=== PATIENT | female | born 1990 | race Two or more races ===

== ENCOUNTER 2022-04-23 14:56 | Emergency (ER) | payer MEDICAID, SELFPAY ==
[2022-04-23 15:00] VITALS: BP 131/92; PULSE 107; RESP 18; TEMP 36.1; O2SAT 100; BMI 31.0
--- NOTE | 2022-04-23 15:09 | EX.ED.VIS.HA ---
HPI History of Present Illness Chief Complaint: Headache Detail of Chief Complaint: Migraine headache Informant: patient Onset/Context/Timing Onset: Days (6 days ago) Context: Gradual Timing: Continuous Quality -Headache: Positive for Similar Prior Headaches Location: Initially unilateral, left now bilateral Current Severity: Severe Maximum Severity: Severe Worsened by: Light and sound Relieved by: Nothing Associated Symptoms/Injury Associated Symptoms: Positive for Nausea; Negative for Fever, Vomiting, Sore Throat, Sinus Pressure, Numbness, Tingling, Preceding Aura, Visual Changes, Blurred Vision, Photophobia or Visual Loss Injury - SERRATO: Negative for Direct Trauma Narrative Narrative: Patient is a 31-year-old female with history of migraine headaches. Per review of outside records indicates patient has history of cluster headaches. She states she does not have history of cluster headaches. She states the last time she came to an emergency room was during her last in 2020. She is . Gestation is approximately 30 weeks. She states she took acetaminophen with no improvement. She states normally acetaminophen alleviates her headache. She denies fever, chills night sweats pressure has ringing or ears, decreased hearing or drainage from her ears. She denies rhinorrhea, congestion or postnasal drainage. She denies sore throat. She denies neck pain or neck stiffness. She denies cardiac or respiratory symptoms. She does endorse nausea without vomiting diarrhea. She denies urologic symptoms. She denies paresthesia, anesthesia or motor weakness upper or lower extremity. She denies problems with coordination or balance. She denies trouble with speech or swallowing. She has had no ill contacts. Prior similar symptoms: Yes Recent Illness/Hospitalization: No PFSH PFSH Medical History (Updated 04/23/22 @ 17:[address] Homero Barbosa MD) Anemia PTSD (post-traumatic stress disorder) Allergy/AdvReac Type Severity Reaction Status Date / Time azithromycin Allergy Hives Verified 04/23/22 15:00 nitrofurantoin Allergy Hives Verified 04/23/22 15:00 tetracycline Allergy Hives Verified 04/23/22 15:00 Social History (Updated 04/23/22 @ 15:[address] Homero Barbosa MD) household members: children Smoking Status: Never smoker substance use type: does not use ROS ROS ED Constitutional Constitutional ED: Denies chills, fever(s), subjective, sweats or weight loss Eyes Eyes: Denies blurry vision, change in vision or diplopia ENT ENT ED: Denies ear pain, rhinorrhea or sore throat Cardiovascular Cardiovascular: Denies chest pain or palpitations Respiratory/Chest Respiratory/Chest: Denies cough, dyspnea or dyspnea on exertion Gastrointestinal Gastrointestinal: Reports nausea; Denies abdominal pain, constipation, diarrhea, melena or vomiting Genitourinary Genitourinary ED: Denies dysuria, hematuria or urinary frequency Musculoskeletal Musculoskeletal: Denies arthralgias, back pain, myalgias or neck pain Integumentary Denies abscess, Abrasions or rash Neurologic Neurologic: Reports headache(s) and other Details: Complete detailed HPI narrative. ; Denies paresthesias or weakness Psychiatric Psychiatric: Denies anxiety or depression Hematologic/Lymphatic Hematologic/Lymphatic: Denies easy bleeding or easy bruising EXAM Physical Exam Const Vital Signs: 04/23/22 15:00 04/23/22 16:56 Temperature 97 F L Temperature Source Temporal Pulse Rate 107 H 96 Respiratory Rate 18 16 Blood Pressure 131/92 H 124/74 H Blood Pressure Mean 105 90 Pulse Ox 100 99 Oxygen Delivery Method Room Air Room Air Positive well nourished, well developed and obese Constitutional Narrative: Patient does not appear in obvious distress. She is quiet. She is sitting in a room with the lights out. General Appearance ED: well developed; Negative for cyanotic, diaphoretic or pallor Nutritional Appearance: obese HEENT Reports normocephalic, TM's clear and moist mucous membranes atraumatic; Negative for temporal artery tenderness or vesicular rash Face and Sinus: Negative for sinus tenderness Tympanic Membrane ED: Yes TM's clear Eyes PERRL and EOMs intact bilaterally Eyes Narrative: There is no APD. Funduscopic exam reveals normal cup-to-disc ratio. There is no papilledema. There is no evidence of hemorrhaging or abnormalities of the vessels. There is no nystagmus. The conjunctive is pink. General Eye ED: Negative for pale conjunctiva or scleral icterus Neck no lymphadenopathy, supple, no meningeal signs and no JVD Resp normal respiratory effort and clear to auscultation bilaterally Cardio regular rhythm, S1 normal heart sound, S2 normal heart sound and no murmurs; Negative for regular rate Rate: tachycardic GI non-tender and non-distended GI Narrative: Fundus is several fingerbreadths above the umbilicus. Auscultation: normoactive bowel sounds Palpation: soft Back/Spine no CVA tenderness Extremity normal to inspection, full ROM and normal capillary refill Neuro oriented x3, CN's II-XII intact bilaterally and no sensory deficits noted Holden Coma Scale: document GCS findings Spontaneous Obeys Commands Oriented 15 Sensorium / Orientation: awake and alert Coordination / Balance: [id number] test normal Speech: speech normal Gait (Neuro): normal gait Motor Exam: strength 5/5 throughout Psych Psych Narrative: Affect is flat. Skin General Skin Exam: elasticity normal and turgor normal; Negative for jaundice or pallor Lesions: no lesions Rashes: no rashes MDM MDM MDM Narrative Medical decision making narrative: Patient presents with headache for 6 days. Since she reports history of migraine headache she was treated with IV Benadryl and Reglan. She was not given Toradol since she is in her third trimester. If new medication ordered does not significantly improve her headache or alleviate her headache we will treat with droperidol. Review of outside records as previously documented indicates history of cluster headache syndrome not migraine headaches. She also has history of MTHFR mutation and anemia. There is also a history of hemorrhoids. Prior imaging results are not available for review. From outside records there is no family history of subarachnoid hemorrhage. Since patient has a nonfocal neurologic exam and headache was not abrupt and there are no meningeal findings CT of the head was not obtained. I was informed by nursing staff the patient's pain is a 1. In light of this she will be discharged to home. Discharge Plan Triage Chief Complaint: Headache ED Provider: Homero Barbosa Dx/Rx/DC Orders Clinical Impression: Intractable migraine without aura and with status migrainosus, MTHFR mutation, Anemia Instructions: ED, Migraine (Classical) Primary Care Provider: [facility] Doctor,Out of Referrals: [facility] Doctor,Out of [Primary Care Provider] - As Needed Disposition Disposition: Home, Self Care
[2022-04-23] MEDS: DiphenhydrAMINE 50 MG/ML Syringe 25 MG IV (15:14)
[2022-04-23] MEDS: Metoclopramide 10 MG/2 ML Vial IV (15:16)
[2022-04-23 16:56] VITALS: BP 124/74; PULSE 96; RESP 16; O2SAT 99
[2022-04-23 17:31] VITALS: RESP 16
== END 2022-04-23 17:33 | disposition home or self-care (01) ==
PROVIDERS: Emergency Provider Emergency Medicine; Visit Provider Emergency Medicine
DX: O99.353 Diseases of the nervous system complicating pregnancy, third trimester (principal); G43.011 Migraine without aura, intractable, with status migrainosus; O99.891 Other specified diseases and conditions complicating pregnancy; Z3A.30 30 weeks gestation of pregnancy; O99.013 Anemia complicating pregnancy, third trimester; O99.213 Obesity complicating pregnancy, third trimester
CPT/HCPCS: 96374; 96375; 99282; A4216

== ENCOUNTER 2022-10-07 21:24 | Emergency (ER) | payer MEDICAID, SELFPAY ==
[2022-10-07 21:29] VITALS: BP 114/88; PULSE 77; RESP 18; TEMP 36.5; O2SAT 98
[2022-10-07 21:56] VITALS: BMI 24.5
--- NOTE | 2022-10-07 21:56 | EX.ED.DYSGE1 ---
HPI History of Present Illness Chief Complaint: Other, Pain/Inj Detail of Chief Complaint: Hemorrhoid pain Informant: patient Onset/Context/Timing Onset: Month(s) Context: Gradual Onset Timing: Continuous Current Severity: Moderate Maximum Severity: Moderate Narrative Narrative: [id number] female history of hemorrhoids for more than a year. She was set up to have surgery go and get with her second child and never followed through. She complaining of hemorrhoid pain for the last several weeks worse the last several days. No bleeding. Prior similar symptoms: Yes Recent Illness/Hospitalization: No PFSH PFSH Medical History Acute hemorrhoid Anemia PTSD (post-traumatic stress disorder) Home Medications hydrocodone 5 mg-acetaminophen 300 mg tablet 1 tab PO Q6H PRN pain 3 days #12 tabs 10/07/22 [Rx Last Taken Unknown] Allergy/AdvReac Type Severity Reaction Status Date / Time soy Allergy Severe Anaphylaxis Verified 10/07/22 21:28 silver sulfadiazine Allergy Mild Hives Verified 10/07/22 21:28 [From Silvadene] Sulfa (Sulfonamide Allergy Mild Hives Verified 10/07/22 21:28 Antibiotics) azithromycin Allergy Hives Verified 10/07/22 21:28 nitrofurantoin Allergy Hives Verified 10/07/22 21:28 tetracycline Allergy Hives Verified 10/07/22 21:28 Social History household members: children Smoking Status: Never smoker substance use type: does not use ROS ROS ED ROS Narrative Denies recent illness. Review of Systems ROS Unobtainable: Denies due to encephalopathy Constitutional Constitutional ED: Denies chills or fever(s) Eyes Eyes: Denies blurry vision ENT ENT ED: Denies ear pain Cardiovascular Cardiovascular: Denies chest pain Respiratory/Chest Respiratory/Chest: Denies cough or dyspnea Gastrointestinal Gastrointestinal: Denies abdominal pain Genitourinary Genitourinary ED: Denies dysuria Musculoskeletal Musculoskeletal: Denies arthralgias Integumentary Denies abscess Neurologic Neurologic: Denies headache(s) Psychiatric Psychiatric: Denies anxiety Endocrine Endocrinology: Denies cold intolerance Hematologic/Lymphatic Hematologic/Lymphatic: Reports none Allergic/Immunologic Allergic/Immunologic ED: Denies mouth swelling or tongue swelling EXAM Physical Exam Narrative Exam Narrative: 32-year-old female no acute distress. Vital signs stable afebrile. HEENT exam unremarkable. Lungs clear. Heart regular rhythm. No murmur. Abdomen soft nontender. Well-healed incision. Dry and clean. Moving all 4 extremities. With her present in the room I did a perianal exam she has 1 grape sized thrombosed hemorrhoid. Tender. No active bleeding. Otherwise exam unremarkable. Const Vital Signs: 10/07/22 21:29 Temperature 97.7 F L Temperature Source Temporal Pulse Rate 77 Respiratory Rate 18 Blood Pressure 114/88 H Blood Pressure Mean 96 Pulse Ox 98 Oxygen Delivery Method Room Air Positive well nourished and well developed; Negative for obese, cachectic, contractures or unkempt General Appearance ED: well developed and NAD; Negative for unkempt, cachectic, contractures, cyanotic, diaphoretic or pallor Nutritional Appearance: Negative for cachectic or obese HEENT Reports moist mucous membranes; Denies dry mucous membranes Negative for trauma or tenderness Mouth ED: No dry mucous membranes Mouth: No dry mucous membranes Eyes PERRL and EOMs intact bilaterally General Eye ED: Negative for pale conjunctiva or scleral icterus Neck no lymphadenopathy, supple and no JVD General: Negative for tenderness Lymph Lymphatic: Negative for other Chest Wall inspection of chest normal and palpation of chest normal Chest: Negative for other Resp normal respiratory effort and clear to auscultation bilaterally Effort and Inspection: Negative for retractions Auscultation: Negative for rales, rhonchi or wheezes Cardio regular rate, regular rhythm, S1 normal heart sound, S2 normal heart sound and no murmurs GI normal to inspection, nondistended, normoactive bowel sounds, non-tender, non-distended and no masses GI Narrative: Annual exam has 1 grape sized thrombosed hemorrhoid at the 6:00 area. Tender to palpation. No bleeding. Palpation: soft Back/Spine no CVA tenderness Neuro oriented x3 and CN's II-XII intact bilaterally Sensorium / Orientation: alert Motor Exam: strength 5/5 throughout Psych mental status grossly normal Appearance: Negative for unkempt Attitude: No agitated Mood & Affect: Negative for depressed, anxious or tearful Skin no rashes or lesions noted, no wounds and skin turgor normal General Skin Exam: elasticity normal; Negative for jaundice or pallor Lesions: No lesion noted Rashes: No rashes noted Trauma: Negative for abrasion Wounds: Negative for wounds noted MDM MDM MDM Narrative Medical decision making narrative: 32-year-old female with a thrombosed hemorrhoid. She is already tried Preparation H, sitz baths, witch vaishnavi, etc. No relief. She and I discussed other options. She is going made incise and drain it and remove the clot. Then she will follow-up with general surgery to have it formally resected. Patient doing well after incision and drainage of the external hemorrhoid. She will be discharged home. Prescription for Vicodin will be sent in. Follow-up with a general surgeon for hemorrhoidectomy. Procedures Other Procedures Procedure(s): External hemorrhoid incision and drainage. Let applied to the hemorrhoid. Locally anesthetized with lidocaine. Made a incision along the hemorrhoid. Removed blood. It was primarily inflammation of the soft tissue. There really was not a large clot. Patient tolerated procedure well. She was instructed on hemorrhoid care. Discharge Plan Triage Chief Complaint: Other, Pain/Inj ED Provider: Dexter Ghosh Dx/Rx/DC Orders Clinical Impression: External hemorrhoid, thrombosed Instructions: Thrombosed Hemorrhoids Prescriptions: New hydrocodone-acetaminophen 5-300 mg tablet 1 tab PO Q6H PRN (Reason: pain) 3 Days Qty: 12 0RF Primary Care Provider: LOVE EATON Referrals: Hermelindo Presley MD [Med Staff - Active Staff] - As soon as possible [facility] Doctor,Out of [Non-Staff] - Activity Restrictions/Additional Instructions: Incise and drain the external hemorrhoid. Warm soaks. Hemorrhoid cream. Call and follow-up with either our general surgeon or the one you saw at [facility] before to discuss with them a external hemorrhoid resection. Motrin and Tylenol for pain. For more severe pain the prescription I sent in for Vicodin. Disposition Disposition: Home, Self Care
[2022-10-07] MEDS: Lidocaine 1% (20 ml mdv) 20 ML Vial 10 ML INFILT (22:03)
[2022-10-07] MEDS: Lidocaine/Epi/Tetracaine 50 ML 1 APPLIC TOPICAL (22:04)
--- NOTE | 2022-10-07 23:31 | EDS_ITS ---
HPI History of Present Illness Chief Complaint: Other, Pain/Inj PFSH PFSH Medical History Acute hemorrhoid Anemia PTSD (post-traumatic stress disorder) Home Medications hydrocodone 5 mg-acetaminophen 300 mg tablet 1 tab PO Q6H PRN pain 3 days #12 tabs 10/07/22 [Rx Last Taken Unknown] Allergy/AdvReac Type Severity Reaction Status Date / Time soy Allergy Severe Anaphylaxis Verified 10/07/22 21:28 silver sulfadiazine Allergy Mild Hives Verified 10/07/22 21:28 [From Silvadene] Sulfa (Sulfonamide Allergy Mild Hives Verified 10/07/22 21:28 Antibiotics) azithromycin Allergy Hives Verified 10/07/22 21:28 nitrofurantoin Allergy Hives Verified 10/07/22 21:28 tetracycline Allergy Hives Verified 10/07/22 21:28 Social History household members: children Smoking Status: Never smoker substance use type: does not use EXAM Physical Exam Const Vital Signs: 10/07/22 21:29 Temperature 97.7 F L Temperature Source Temporal Pulse Rate 77 Respiratory Rate 18 Blood Pressure 114/88 H Blood Pressure Mean 96 Pulse Ox 98 Oxygen Delivery Method Room Air Discharge Plan Triage Chief Complaint: Other, Pain/Inj ED Provider: Dexter Ghosh Dx/Rx/DC Orders Clinical Impression: External hemorrhoid, thrombosed Instructions: Thrombosed Hemorrhoids Prescriptions: New hydrocodone-acetaminophen 5-300 mg tablet 1 tab PO Q6H PRN (Reason: pain) 3 Days Qty: 12 0RF Primary Care Provider: LOVE EATON Referrals: Hermelindo Presley MD [Med Staff - Active Staff] - As soon as possible [facility] Doctor,Out of [Non-Staff] - Activity Restrictions/Additional Instructions: Incise and drain the external hemorrhoid. Warm soaks. Hemorrhoid cream. Call and follow-up with either our general surgeon or the one you saw at [facility] before to discuss with them a external hemorrhoid resection. Motrin and Tylenol for pain. For more severe pain the prescription I sent in for Vicodin. Disposition Disposition: Home, Self Care
[2022-10-07 23:35] VITALS: BP 112/80; PULSE 78; RESP 16; O2SAT 98
== END 2022-10-07 23:42 | disposition home or self-care (01) ==
PROVIDERS: Emergency Provider Emergency Medicine; Visit Provider Emergency Medicine
DX: K64.5 Perianal venous thrombosis (principal)
CPT/HCPCS: 46083; 99282

== ENCOUNTER → 2022-10-26 | Outpatient (CLI) | payer MEDICAID, SELFPAY | END | disposition home or self-care (01) | LOC: LABSPEC 16:17 | PROVIDERS: Referring Provider Registered Nurse; Visit Provider Registered Nurse | DX: N89.8 Other specified noninflammatory disorders of vagina (principal) | CPT/HCPCS: 87070; 87205 ==

== ENCOUNTER → 2023-01-04 | Outpatient (CLI) | payer MEDICAID, SELFPAY | END | disposition home or self-care (01) | PROVIDERS: Visit Provider Surgery | DX: Z00.00 Encounter for general adult medical examination without abnormal findings (principal) ==

== ENCOUNTER → 2023-02-26 | Outpatient (CLI) | payer MEDICAID, SELFPAY ==
[2023-02-26 12:04] LABS: Hematocrit 43.2 % (37-47); Hemoglobin 13.5 g/dL (12.0-15.0); Mean Corp Hgb Conc 31.3 g/dL (32-36); Mean Corpuscular Volume 83.1 fL (81-99); RBC Distribution Width CV 13.2 % (11.6-14.6); RBC Distribution Width SD 39.9 fl (35.1-43.9); White Blood Count 9.2 K/mm3 (4.4-11.0)
[2023-02-26 12:05] LABS: Absolute Lymphocyte Count 2.95 X10^3/uL (0.83-4.51); Absolute Neutrophil Count 5.7 X10^3/uL (2.0-7.7); Basophil# 0.02 X10^3/uL; Basophil% 0.2 % (0-1); Eosinophil# 0.08 X10^3/uL; Eosinophils% 0.9 % (0-5); Lymphocyte # 2.95 X10^3/ul (0.83-4.51); Lymphocyte % 32.2 % (19-41); Mean Platelet Vol. 9.8 fl (6.2-12.0); Monocyte# 0.35 X10^3/uL; Monocyte% 3.8 % (0-10); NRBC Flagged by Analyzer 0 % (0-5); Neutrophil # 5.65 X10^3/uL (2.7-7.7); Neutrophil % 61.7 % (47-70); Platelet Count 340 K/mm3 (150-450)
[2023-02-26 12:25] LABS: AST(SGOT) 8 U/L (15-37); Alanine Aminotransfer ALT/SGPT 16 U/L (13-56); Albumin, Serum 4.3 g/dL (3.2-5.0); Alkaline Phosphatase 83 U/L (45-117); Anion Gap 7 (5-15); BUN 12 mg/dL (7-18); BUN/Creat Ratio 15.8 RATIO (10-20); Chloride 109 mmol/L (98-107); Creatinine, Serum 0.76 mg/dL (0.55-1.02); EST Glomerular Filtration Rate 95 mL/min (>60); Est Glom Filt Rate - Afr Amer 114 mL/min (>60); Globulin 4.1 g/dL (2.2-4.2); Glucose 87 mg/dL (74-106); Potassium 4.1 mmol/L (3.5-5.1); Prolactin 15.9 ng/mL; Protein, Total 8.4 g/dL (6.4-8.2); Sodium Level 139 mmol/L (136-145); T4 Free Direct 1.03 ng/dL (0.76-1.46); Thyroid Stim Hormone (TSH) 1.33 uIU/mL (0.358-3.74)
[2023-02-26 12:31] LABS: Vitamin D,25 Hydroxy 25.8 ng/mL
[2023-02-27 15:08] LABS: Thyroid Peroxidase AB 13 IU/mL (0-34)
== END | disposition home or self-care (01) ==
LOC: PAVLAB 11:48
PROVIDERS: Referring Provider Nurse Practitioner Women's Health; Visit Provider Nurse Practitioner Women's Health
DX: L85.3 Xerosis cutis (principal); R53.83 Other fatigue; Z13.29 Encounter for screening for other suspected endocrine disorder; Z13.21 Encounter for screening for nutritional disorder
CPT/HCPCS: 36415; 80053; 82306; 82670; 84146; 84439; 84443; 85025; 86376

== ENCOUNTER → 2023-08-03 | Outpatient (CLI) | payer MEDICAID, SELFPAY ==
[2023-08-03 11:24] LABS: Hemoglobin A1c 4.9 % (3.8-5.6)
[2023-08-10 12:09] LABS: Testosterone Free 0.4 pg/mL (0.0-4.2)
== END | disposition home or self-care (01) ==
LOC: LAB 09:56
PROVIDERS: PCP Family Medicine; Referring Provider Nurse Practitioner Women's Health; Visit Provider Nurse Practitioner Women's Health
DX: L70.9 Acne, unspecified (principal)
CPT/HCPCS: 36415; 82627; 83036; 84402; 82626

== ENCOUNTER 2023-08-21 11:48 | Day surgery (SDC) | payer MEDICAID, SELFPAY ==
[2023-08-21 12:08] LABS: Internal QC Validated? YES +Cl - CLEAR BKGD; Pregnancy, Urine Negative Negative; Record Kit Lot#,Urine Preg HCG0000735774
[2023-08-21 12:17] VITALS: BP 132/84; PULSE 95; RESP 16; TEMP 36.7; O2SAT 100; BMI 26.4
[2023-08-21] MEDS: Lactated Ringers 1,000 ML 15 ML IV (12:17)
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
[2023-08-21 13:30] VITALS: BP 124/78; BP 132/84; PULSE 84; RESP 16; TEMP 36.8; O2SAT 99
[2023-08-21 13:35] VITALS: BP 116/74; BP 132/84; PULSE 80; RESP 18; O2SAT 100
--- NOTE | 2023-08-21 13:35 | OP.COLON_ITS ---
Patient Name: Holden Pastor Procedure Date: 08/21/2023 12:14 PM Date of : 1990 Age: 33 Procedure: Colonoscopy Indications: Family history of colon cancer in a first-degree relative before age 60 years, For therapy of hemorrhoids, Constipation Providers: Hermelindo Presley MD Medicines: See the Anesthesia note for documentation of the administered medications Patient Profile: Last Colonoscopy: more than 10 years ago. Last Colonoscopy: more than 10 years ago. Complications: No immediate complications. Estimated blood loss: None. Procedure: Pre-Anesthesia Assessment: - The heart rate, respiratory rate, oxygen saturations, blood pressure, adequacy of pulmonary ventilation, and response to care were monitored throughout the procedure. After I obtained informed consent, the scope was passed under direct vision. Throughout the procedure, the patient's blood pressure, pulse, and oxygen saturations were monitored continuously. The pediatric colonoscope was introduced through the anus and advanced to the cecum, identified by transillumination. The gastroscope was introduced through the and advanced to. The colonoscopy was somewhat difficult due to a tortuous colon. Successful completion of the procedure was aided by changing the patient to a supine position and straightening and shortening the scope to obtain bowel loop reduction. The patient tolerated the procedure well. The quality of the bowel preparation was adequate to identify polyps greater than 5 mm in size. Scope In: 12:40:01 PM Scope Withdrawal Time 0 hours 18 minutes 33 seconds Scope Out: 1:12:29 PM Total Procedure Duration Time 0 hours 32 minutes 28 seconds Findings: Skin tags were found on perianal exam. The colon (entire examined portion) appeared normal. No biopsies or other specimens were collected for this exam. Internal hemorrhoids were found during retroflexion. The hemorrhoids were Grade II (internal hemorrhoids that prolapse but reduce spontaneously). The endoscope was withdrawn. One band was successfully placed. There was no bleeding during and at the end of the procedure. Estimated blood loss: none. Impression: - Perianal skin tags found on perianal exam. - The entire examined colon is normal. No specimens collected. - Internal hemorrhoids. Banded. Recommendation: - Discharge patient to home (via wheelchair). - Resume previous diet today. - Continue present medications. - Repeat colonoscopy in 7-10 years for screening purposes. - Telephone my office for study results in 1 week. Procedure Code(s): --- Professional --- 86096, Hemorrhoidectomy, internal, by rubber band ligation(s) 10155, Colonoscopy, flexible; diagnostic, including collection of specimen(s) by brushing or washing, when performed (separate procedure) Diagnosis Code(s): --- Professional --- K64.4, Residual hemorrhoidal skin tags K64.1, Second degree hemorrhoids Z80.0, Family history of malignant neoplasm of digestive organs K59.00, Constipation, unspecified CPT copyright 2021 [employer]. All rights reserved. The codes documented in this report are preliminary and upon foreign legal consultant review may be revised to meet current compliance requirements. Hermelindo Presley MD 08/21/2023 1:35:20 PM This report has been signed electronically. Number of Addenda: 0 Note Initiated On: 08/21/2023 12:14 PM
[2023-08-21 13:40] VITALS: BP 113/92; BP 132/84; PULSE 78; RESP 18; O2SAT 100
[2023-08-21] MEDS: Ketorolac 30 MG/ML Syringe IV (13:41)
[2023-08-21 13:48] VITALS: BP 112/88; BP 132/84; PULSE 83; RESP 18; TEMP 36.7; O2SAT 100
[2023-08-21] MEDS: diazePAM 5 MG Tablet PO (14:30)
--- NOTE | 2023-08-21 14:35 | SUR.PHASEII ---
Spoke to pharmacist about taking Valium while . Pharmacist advises that medication can be excreted in breastmilk, baby may be more lethargic for up to 1 day and not feed as well. Patient updated and states that as long as it won't make baby ill that she would like to take medication.
[2023-08-21 15:12] VITALS: BP 132/84
== END 2023-08-21 15:14 | disposition home or self-care (01) ==
LOC: EN 11:49 → AC 11:51
PROVIDERS: Anesthesiology; PCP Family Medicine; Referring Provider Surgery; Visit Provider Surgery
PROC: 0DJD8ZZ Inspection of Lower Intestinal Tract, Via Natural or Artificial Opening Endoscopic (ICD-10-PCS; CPT 45378; principal; 2023-08-21 12:40)
DX: K64.1 Second degree hemorrhoids (principal); Z80.0 Family history of malignant neoplasm of digestive organs; K64.4 Residual hemorrhoidal skin tags
CPT/HCPCS: 46221; 81025; J7120; J2405

== ENCOUNTER → 2023-09-24 | Outpatient (CLI) | payer MEDICAID, SELFPAY ==
--- NOTE | 2023-09-24 16:38 | US_ITS ---
STUDY: ULTRASOUND OF THE FEMALE PELVIS - COMPLETE REASON FOR EXAM: Female, 33 years old. Pelvic pain LMP: August 26, 2023. TECHNIQUE: Transabdominal and Transvaginal TECHNICAL QUALITY: Adequate. COMPARISON: None. FINDINGS: The uterus is anteverted and is in a midline position. The uterus measures 8.2 cm x 5.9 cm x 5.1 cm. Normal uterine cervix. The endometrium measures 7.4 mm in thickness, and is hyperechoic. There is no demonstrated endometrial mass. There is no demonstrated myometrial mass. I.U.D. - The patient does not have an I.U.D. The right ovary is visualized. The right ovary measures 3 cm x 2 cm x 1.4 cm. There is no right ovarian cyst or ovarian mass. There is no visualized right adnexal mass or complex lesion. There is normal arterial and normal venous vascularity. The left ovary is visualized. The left ovary measures 2.4 cm x 1.6 cm x 1.6 cm. There is no left ovarian cyst or ovarian mass. There is no visualized left adnexal mass or complex lesion. There is normal arterial and normal venous vascularity. There is minimal fluid in the cul-de-sac. The pre void volume of the bladder was 191 ml. US/Pelvic w/ Transvaginal IMPRESSION: Normal female pelvis. Electronically Signed: Nick Mcelroy MD at 12:59 EDT ,
== END | disposition home or self-care (01) ==
PROVIDERS: PCP Internal Medicine; Referring Provider Internal Medicine; Visit Provider Internal Medicine
DX: R10.2 Pelvic and perineal pain (principal)
CPT/HCPCS: 76830; 76856

== ENCOUNTER → 2023-10-09 | Outpatient (CLI) | payer MEDICAID, SELFPAY ==
--- NOTE | 2023-10-09 14:22 | CT_ITS ---
STUDY: CT ABDOMEN AND PELVIS WITH CONTRAST REASON FOR EXAM: Female, 33 years old. Left lower quadrant pain for 2 months. RADIATION DOSAGE (If Supplied By Facility): CTDIvol = ( 11.85 ) mGy, DLP = ( 838.76 ) mGycm TECHNIQUE: Transaxial images were obtained from the dome of the diaphragm to the symphysis pubis without oral contrast. IV 100mL Isovue-370 was administered. Sagittal and coronal images were reconstructed. Individualized dose optimization techniques were used for this CT. COMPARISON: None. FINDINGS: The visualized lung bases are unremarkable. The visualized portions of the heart are within normal limits. There is decreased attenuation of the liver consistent with steatosis. Normal gallbladder and extrahepatic biliary system. Normal spleen. Normal pancreas. Normal bilateral adrenal glands. Normal right kidney. Normal left kidney. There is a small hiatal hernia. Normal small intestine. Abnormal appearance of the cecum and proximal ascending colon. Fecal material is seen at that site although I cannot rule out circumferential wall thickening. Correlation with a barium enema or colonoscopy is recommended for further evaluation. Small benign-appearing lymph nodes are seen in the mesenteric fat. There is non-visualization of the appendix. Normal abdominal aorta. Normal inferior vena cava. Normal retroperitoneum. Normal urinary bladder. Normal abdominal wall. Normal osseous structures. CT/Abdomen/Pelvis WITH Contrast IMPRESSION: Abnormal appearance of the cecum and proximal ascending colon as described with circumferential wall thickening. Correlation with a barium enema or colonoscopy is recommended for further evaluation. Small lymph nodes are seen in the mesenteric fat in the right lower quadrant. Electronically Signed: Nick Mcelroy MD at 16:01 EDT ,
== END | disposition home or self-care (01) ==
PROVIDERS: PCP Internal Medicine; Referring Provider Internal Medicine; Visit Provider Internal Medicine
DX: R10.2 Pelvic and perineal pain (principal)
CPT/HCPCS: 74177; Q9967

== ENCOUNTER 2024-01-15 11:43 | Day surgery (SDC) | payer MEDICAID, SELFPAY ==
[2024-01-15] VITALS (9 sets, daily range): BP systolic 112–129; BP diastolic 70–88; PULSE 73–103; RESP 16–18; TEMP 36.3–37.2; O2SAT 96–100; BMI 27.1
--- NOTE | 2024-01-15 | IMM_PTH ---
PATHOLOGY RESULTS PATIENT: RG KELLEY LOC: EN U#:[id number] AGE/SX: 33/F ROOM: RE01/15/[address]: Dr. Zach Benoit DO : 1990 BED: DIS: 01/15/2024 SPEC #: [id number] RECD: 01/17/24 08:30 STATUS: GIANCARLO REQ #: [id number] NATALI: 01/15/24 00:[address]: Zach Benoit DEPT: IMMUNOHISTOCHEMISTRY RECD BY: Kota Leon ENTERED: 01/17/24 08:32 SP TYPE: IMMUNO OT DR: Dr. Maritza Agee MD Tissues: Esophagus, NOS Procedures: P53 (initial) KI-67 (add) PHYSICIAN & INSTITUTION [place] [id number] SPECIMEN INFORMATION: Tissue Source: C- Distal esophagus biopsy Clinical Info: GERD Specimen Number: [id number] CPT code: 35300,80407 METHODOLOGY: Deparaffinized sections of prefer/formalin-fixed tissue or PAP/DQ stained slides are incubated with monoclonal/polyclonal antibodies/oligonucleotide probes. Localization is made via biotin free immunoperoxidase method. Appropriate controls are performed and reacted as expected. Results on target cell population are indicated in the following table: RESULTS: ANTIBODY / CLONE RESULT Block C P53 (DO-7) negative (null pattern) Ki-67 (30-9) positive, low These tests were developed and their performance characteristics determined by [facility]. They may not have been cleared or approved by the U.S. Food and Drug Administration. The FDA has determined that such clearance or approval is not necessary. The above immunohistochemical/dualISH markers are ordered and reviewed by the Pathologist. INTERPRETATION: C. Distal esophagus, biopsy: Negative for dysplasia. 01/17/2024
--- NOTE | 2024-01-15 11:57 | HP.PCM_ITS ---
History and Physical Date of Admission: 01/15/24 Chief Complaint: GERD Details: RG KELLEY, is a 33 F who presents to the office today for establishment with [facility]. Pt has a PMHx of migraines, hemorrhoids, anemia, MTHFR mutation and anxiety. She is here today for evaluation of epigastric pain that has been ongoing for a few months now. SHe has two young children at home and bends down a lot which increases her pain. SHe does not notice that certain foods are worse. Tried a two week course of omeprazole which typically works for her but this time it did not. Sometimes she will be nausea but does not vomit. She has dull LUQ pain that is constant. She underwent colonoscopy in August 2023 with hemorrhoid banding. She has a family history of both IBD and colon cancer. She denies vomiting, diarrhea, constipation or melena. Colonoscopy .07.10 - Perianal skin tags found on perianal exam. - The entire examined colon is normal. No specimens collected. - Internal hemorrhoids. Banded. CT abdomen/pelvis; 10.09.23;Abnormal appearance of the cecum and proximal ascending colon as described with circumferential wall thickening. Correlation with a barium enema or colonoscopy is recommended for further evaluation. Small lymph nodes are seen in the mesenteric fat in the right lower quadrant ROS Const Constitutional: No anorexia, fatigue, fever(s), weight change or sleep problems Eyes Eyes: No change in vision ENT ENT: No abnormal hearing, difficulty swallowing, mouth lesions, tongue swelling or throat swelling Resp Respiratory: No cough or shortness of breath Cardio Cardiology: No chest pain at rest, chest pain with exertion, shortness of breath or dyspnea on exertion Gastro GI: Positive for abdominal pain, heartburn and nausea/dyspepsia; No difficulty swallowing Genitourinary-Female: No difficulty urinating or burning urination Musc Musculoskeletal: No joint pain, joint swelling, muscle weakness or decreased muscle mass Skin Skin: No hair loss in leg, yellowing of the eye, itchy eyes, rash, skin ulcer or skin swelling Neuro Neurology: No abnormal hearing, abnormal movements, confusion, unsteady gait/balance or memory loss Psych Psychiatric: No anxiety, No confusion and No memory loss Endo Endocrine: No fatigue or weight change Aller/Imm Allergy/Immunologic: No itchy eyes, throat swelling or tongue swelling Uri/Lymp Hematologic/Lymphatic: No easy bleeding, easy bruising or enlarged lymph nodes Assessment and Plan Assessment and Plan (1) Colonic thickening: Status: Acute Plan: Pt is a 33 yo female here today for evaluation. She has had epigastric pain and heartburn for a few months now. It has been refractory to two week course of omeprazole. She has never had an EGD. I recommended we start with taking omeprazole daily for 8 weeks and get scheduled for an EGD. She is agreeable. Differential includes GERD, EOE or gastroparesis Pt also had findings of colonic thickening on CT abdomen pelvis in September 2023. She has a family hx of IBD and colon cancer. She denies all lower GI symptoms besides abdominal pain. Due to these findings on imaging and family hx I will order blood work for IBD and stool testing. Differential diagnosis includes IBD or unspecified colitis. -Restart omeprazole; 20 mg daily sent to pharmacy -EGD -Blood work and stool testing -F/u in 6 months (2) GERD (gastroesophageal reflux disease): Status: Acute Orders: Orders IBD Expanded Profile Today K63.9 - Disease of intestine, unspecified ROSEMARY + Protein Elect, Serum Today K63.9 - Disease of intestine, unspecified Immunoglobulins G/A/M/E Today K63.9 - Disease of intestine, unspecified CRP Today K63.9 - Disease of intestine, unspecified Erythrocyte Sed Rate Today K63.9 - Disease of intestine, unspecified Stool Lactoferrin/WBC Today K58.9 - Irritable bowel syndrome, unspecified, K63.9 - Disease of intestine, unspecified Pancreatic Elastase, Fecal Today K63.9 - Disease of intestine, unspecified Calprotectin, Stool Today K63.9 - Disease of intestine, unspecified Medications: New omeprazole 20 mg PO QDAY 90 caps 2RF I have examined the patient and the H&P has been reviewed. There are no clinical changes since date of exam.
[2024-01-15 12:23] LABS: Internal QC Validated? YES +Cl - CLEAR BKGD; Pregnancy, Urine Negative Negative
--- NOTE | 2024-01-15 12:29 | PRE.ANES_ITS ---
ASA Classification* ASA Classification ASA Classification: 2 Assessment & Plan Anesthesia* Anesthesia Assessment Anesthesia Assessment: Discussed sedation and/or anesthesia options, risks, benefits, and alternatives with patient/parents/legal guardian/POA. Questions invited. The patient/parents/legal guardian/POA seems to understand and agrees to proceed with anesthesia plan. Reviewed the physical assessment, medical history, allergy history and patient home medications list prior to surgery/procedure/anesthetic and documented any changes. Performed airway and anesthesia risk assessments. Anesthesia Type Anesthesia Type: MAC (SEE WRITTEN PRE ANESTHESIA RECORD FOR FULL ASSESSMENT) Anesthesia Focused Assessment* Temperature: 98.9 F Pulse Rate: 73 Blood Pressure: 114/78 Respiratory Rate: 16 Pulse Ox: 100 Airway Assessment Mouth opens: >3 cm Mallampati Score: II Focused Labs Anesthesia Preop lab: CBC WBC 9.2 K/mm3 (4.4-11.0) 02/26/23 11:52 RBC 5.20 M/mm3 (4.2-5.4) 02/26/23 11:52 Hgb 13.5 g/dL (12.0-15.0) 02/26/23 11:52 Hct 43.2 % (37-47) 02/26/23 11:52 Plt Count 340 K/mm3 (150-450) 02/26/23 11:52 CHEMISTRY Potassium 4.1 mmol/L (3.5-5.1) 02/26/23 11:52 Sodium 139 mmol/L (136-145) 02/26/23 11:52 BUN 12 mg/dL (7-18) 02/26/23 11:52 Creatinine 0.76 mg/dL (0.55-1.02) 02/26/23 11:52 Glucose 87 mg/dL (74-106) 02/26/23 11:52 TSH 1.33 uIU/mL (0.358-3.74) 02/26/23 11:52 COAG Urine Test Negative Negative 01/15/24 12:05 Pre-Assessment Diagnosis/Proposed Procedure Planned Operative Procedure(s): EGD Anesthesia History 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 When Was Last Pacemaker Check QUESTION #4 FULL TEXT: You/Your Family Experience fever (hyperthermia) with Anesthesia Last Oral Intake Last Oral intake: Last Oral Intake NPO since 23:00 01/15/24 12:20 Meds taken in AM with sips of No 01/15/24 12:20 water? Meds patient instructed to take am of surgery PONV PONV - saddle and harness maker: PONV - saddle and harness maker Female Yes 01/14/24 08:59 HX of Motion Sickness Yes 01/14/24 08:59 HX of N/V After Surgery No 01/14/24 08:59 Non-Smoker Yes 01/14/24 08:59 Duration of Surgery greater No 01/14/24 08:59 than 60 minutes Number of Risk Factors 3 01/14/24 08:59 PONV Score Moderate Risk 01/14/24 08:59 Height & Weight Height & Weight: Anesthesia: Height & Weight Height 5 ft 8 in 01/15/24 12:20 Weight: 80.8 kg 01/15/24 12:20 Body Mass Index (BMI) 27.1 01/15/24 12:20 Respiratory Assessment Respiratory Assessment - saddle and harness maker: Respiratory Tract Infection Hx - saddle and harness maker Hx Respiratory Tract Infection No 01/14/24 08:59 STOP Sleep Apnea STOP Sleep Apnea - saddle and harness maker: STOP Sleep Apnea - saddle and harness maker Hx Hypertension No 01/14/24 08:59 Hx Sleep Apnea No 01/14/24 08:59 CPAP BIPAP Do you snore loudly (louder No 01/14/24 08:59 than talking or can be heard Do you often feel tired/ No 01/14/24 08:59 fatigued/ sleepy during daytime? Has anyone observed you stop No 01/14/24 08:59 breathing during sleep? STOP Results Negative 01/14/24 08:59 QUESTION #5 FULL TEXT : Do you snore loudly (louder than talking or can be heard through closed doors)? Tobacco Use History Tobacco Use History - saddle and harness maker: Tobacco Use History - saddle and harness maker Tobacco Use Smoking Status Never smoker 01/14/24 08:59 Hx Tobacco Use No 01/14/24 08:59 Years Smoking Packs Smoked per Day Smoking Cessation Date was within the last 15 years Hx Smoking Cessation Date Hx Smoking Cessation Counseling Hematologic Medial History Hematologic Hx - saddle and harness maker: Hematologic Medical Hx - medicine technologist Hx of Blood Transfusion No 01/14/24 08:59 Hx of Transfusion in last 3 No 01/14/24 08:59 Months Date of Last Transfusion (if within last 3 months) Ever experience any problems No 01/14/24 08:59 with transfusion(s)? Specify any problems Hx of Preganancy in last 3 N/A 01/14/24 08:59 Months Nurse Filling Out Transfusion NBUCHER 01/14/24 08:59 & Questions: Date: 01/14/24 01/14/24 08:59 Time: 09:00 01/14/24 08:59 Patient unable to answer at this time (ie. confused, unrespo /Reproduction History /Reproductive History - saddle and harness maker: /Reproductive Hx- saddle and harness maker Hx Now No 01/14/24 08:59 Gestational Age (in weeks): EDC: Hx Hx Para Hx Section SAB No 01/14/24 08:59 Active Medications Active Medications: Current Medications Generic Name Dose Route Start Last Admin Trade Name Freq PRN Reason Stop Dose Admin Sodium Chloride 10 - 40 ml 01/15/24 12:07 0.9% Saline Lock 10 Ml Syringe IV UD PRN SALINE FLUSH PFSH Medical History Major depressive disorder Interstitial cystitis Migraine headache History of hiatal hernia Shortness of breath on exertion History of echocardiogram Depression Anxiety Low iron Dietary restriction Non-smoker Family history of colon cancer in father Thrombosed hemorrhoids Anemia PTSD (post-traumatic stress disorder) Home Medications ?Medication ?Instructions ?Recorded ?Last Taken ?Type omeprazole 20 mg capsule,delayed 20 mg PO QDAY #90 caps 12/19/23 Unknown Rx release sucralfate 1 gram tablet 1 g PO BID #30 tabs 12/25/23 Unknown Rx mirtazapine 15 mg tablet 15 mg PO QHS 01/14/24 Unknown History prazosin 1 mg capsule 3 mg PO QHS 01/14/24 Unknown History Allergy/AdvReac Type Severity Reaction Status Date / Time adhesive Allergy Severe Hives Verified 01/15/24 12:20 latex Allergy Severe Hives Verified 01/15/24 12:20 soy Allergy Severe Anaphylaxis Verified 01/15/24 12:20 phenazopyridine (From Allergy Mild hives Verified 01/15/24 12:20 Pyridium) silver sulfadiazine (From Allergy Mild Hives Verified 01/15/24 12:20 Silvadene) Sulfa (Sulfonamide Allergy Mild Hives Verified 01/15/24 12:20 Antibiotics) azithromycin Allergy Hives Verified 01/15/24 12:20 nitrofurantoin Allergy Hives Verified 01/15/24 12:20 tetracycline Allergy Hives Verified 01/15/24 12:20 Family History Mother Aortic valve, bicuspid PTSD (post-traumatic stress disorder) Anemia Depression Ovarian cyst Father Crohn's disease Schizophrenia Aunt Schizophrenia Grandfather Cancer melanoma CVA (cerebral vascular accident) Surgical History History of H/O cystoscopy Hx of colonoscopy S/P section S/P wrist surgery Social History household members: children housing: house current occupational status: unemployed Smoking Status: Never smoker Electronic Cigarette Use: not used alcohol intake: never substance use type: does not use what type of physical activity do you participate in: none seatbelt use: always do you feel safe at home: Yes Review of Systems (Anesthesia) ROS Narrative System reviewed and no additional complaints, except as documented.
[2024-01-15] MEDS: 0.9% Saline Lock 10 ML Syringe IV ×2 (12:30→13:48)
--- NOTE | 2024-01-15 13:00 | EGD_PTH ---
PATHOLOGY RESULTS PATIENT: RG KELLEY LOC: EN U#:[id number] AGE/SX: 33/F ROOM: RE01/15/[address]: Dr. Zach Benoit DO : 1990 BED: DIS: 01/15/2024 SPEC #: [id number] RECD: 01/15/24 13:58 STATUS: GIANCARLO REYoni #: [id number] NATALI: 01/15/24 13:[address]: Zach Benoit DEPT: SURGICAL PATHOLOGY RECD BY: Geraldine Stevenson ENTERED: 01/15/24 14:11 SP TYPE: EGD BIOPSY JACKIE DR: Dr. Maritza Agee MD Tissues: Duodenum, NOS Esophagus, NOS Esophagus, NOS Procedures: Special Stain Group I Surgery Specimen Level IV Alcian Blue/PAS (control) HEADER OPERATION: EGD, biopsy, dilatation PRE-OP DIAGNOSIS: GERD TISSUE SUBMITTED: A- Duodenum biopsy, B- Random esophagus biopsy, C- Distal esophagus biopsy MICROSCOPIC DIAGNOSIS A. Duodenum, biopsy: Fragments of duodenal mucosa, no pathologic diagnosis. B. Esophagus, random biopsy: Fragments of benign squamous epithelium. C. 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 Focal chronic inflammation. Negative for dysplasia. See comment. ELIAS/ 01/16/2024 COMMENT C. Alcian blue/PAS stain with matched control is used in the evaluation of the specimen. Immunohistochemistry ([id number]) for P53 and Ki-67 is being performed and results will be reported separately. MICROSCOPIC DESCRIPTION Slides are reviewed. GROSS DESCRIPTION A. Received in fixative is one container labeled with the patient's name and designated Duodenum biopsy. The specimen consists of multiple irregular fragments of light dash soft tissue that in aggregate measure 1.0 x 0.4 x 0.1 cm. The specimen is totally submitted in one cassette. B. Received in fixative is one container labeled with the patient's name and designated Random esophageal biopsy. The specimen consists of multiple irregular fragments of light dash soft tissue that in aggregate measure 1.2 x 0.4 x 0.1 cm. The specimen is totally submitted in one cassette. C. Received in fixative is one container labeled with the patient's name and designated Distal esophagus biopsy. The specimen consists of two irregular fragments of light dash soft tissue that in aggregate measure 0.6 x 0.5 x 0.1 cm. The specimen is totally submitted in one cassette. SJ.mr 01/15/2024 TC:3 CPT:62758z2, 08474
--- NOTE | 2024-01-15 13:30 | OP.EGD_ITS ---
Patient Name: Holden Pastor Procedure Date: 01/15/2024 12:59 PM Date of : 1990 Age: 33 Procedure: Upper GI endoscopy Indications: Epigastric abdominal pain, Functional Dyspepsia, Dysphagia Providers: Zach Benoit DO Referring MD: Zach Benoit DO Medicines: Monitored Anesthesia Care Patient Profile: This is a 33 year old female. Refer to note in patient chart for documentation of history and physical. Patient has symptoms of chronic dysphagia, chronic dyspepsia and chronic nausea. Complications: No immediate complications. Procedure: Pre-Anesthesia Assessment: - Prior to the procedure, a History and Physical was performed, and patient medications and allergies were reviewed. The patient is competent. The risks and benefits of the procedure and the sedation options and risks were discussed with the patient. All questions were answered and informed consent was obtained. Patient identification and proposed procedure were verified by the physician in the pre-procedure area. Mental Status Examination: alert and oriented. Airway Examination: normal oropharyngeal airway and neck mobility. Respiratory Examination: clear to auscultation. CV Examination: normal. Prophylactic Antibiotics: The patient does not require prophylactic antibiotics. Prior Anticoagulants: The patient has taken no anticoagulant or antiplatelet agents except for NSAID medication. ASA Grade Assessment: II - A patient with mild systemic disease. After reviewing the risks and benefits, the patient was deemed in satisfactory condition to undergo the procedure. The anesthesia plan was to use monitored anesthesia care (MAC). Immediately prior to administration of medications, the patient was re-assessed for adequacy to receive sedatives. The heart rate, respiratory rate, oxygen saturations, blood pressure, adequacy of pulmonary ventilation, and response to care were monitored throughout the procedure. The physical status of the patient was re-assessed after the procedure. After obtaining informed consent, the endoscope was passed under direct vision. Throughout the procedure, the patient's blood pressure, pulse, and oxygen saturations were monitored continuously. The gastroscope was introduced through the mouth, and advanced to the second part of duodenum. The upper GI endoscopy was accomplished without difficulty. The patient tolerated the procedure well. Scope In: 1:11:44 PM Scope Out: 1:21:02 PM Total Procedure Duration Time 0 hours 9 minutes 18 seconds Findings: Mucosal changes including ringed esophagus, longitudinal furrows and small-caliber esophagus were found in the upper third of the esophagus and in the middle third of the esophagus. Biopsies were obtained from the proximal and distal esophagus with cold forceps for histology of suspected eosinophilic esophagitis. A guidewire was placed and the scope was withdrawn. Dilation was performed with a Savary dilator with no resistance at 51 Fr. The dilation site was examined and showed moderate improvement in luminal narrowing. The Z-line was irregular and was found 38 cm from the incisors. Biopsies were taken with a cold forceps for histology. Verification of patient identification for the specimen was done. Estimated blood loss was minimal. LA Grade A (one or more mucosal breaks less than 5 mm, not extending between tops of 2 mucosal folds) esophagitis with no bleeding was found 36 to 38 cm from the incisors. A small hiatal hernia was present. No other significant abnormalities were identified in a careful examination of the stomach. Patchy mildly erythematous mucosa without active bleeding and with no stigmata of bleeding was found in the duodenal bulb and in the first portion of the duodenum. Biopsies were taken with a cold forceps for histology. Verification of patient identification for the specimen was done. Estimated blood loss was minimal. Impression: - Esophageal mucosal changes suspicious for eosinophilic esophagitis. Dilated. - Z-line irregular, 38 cm from the incisors. Biopsied. - LA Grade A reflux esophagitis with no bleeding. - Small hiatal hernia. - Erythematous duodenopathy. Biopsied. - Biopsies were taken with a cold forceps for evaluation of eosinophilic esophagitis. Recommendation: - Discharge patient to home. - Continue present medications. Procedure Code(s): --- Professional --- 42337, Esophagogastroduodenoscopy, flexible, transoral; with insertion of guide wire followed by passage of dilator(s) through esophagus over guide wire 60801, 59,51, Esophagogastroduodenoscopy, flexible, transoral; with biopsy, single or multiple CPT copyright 2021 [employer]. All rights reserved. The codes documented in this report are preliminary and upon spray gun operator review may be revised to meet current compliance requirements. Zach Benoit DO 01/15/2024 1:30:24 PM This report has been signed electronically. Number of Addenda: 0 Note Initiated On: 01/15/2024 12:59 PM
--- NOTE | 2024-01-15 13:30 | OP.CCLET_ITS ---
01/15/2024 Maritza Agee Md Re : Upper GI endoscopy procedure for Holden Pastor Dear Anuel This procedure was performed on Monday, January 15, 2024. My impressions and recommendations are as follows: Impressions : - Esophageal mucosal changes suspicious for eosinophilic esophagitis. Dilated. - Z-line irregular, 38 cm from the incisors. Biopsied. - LA Grade A reflux esophagitis with no bleeding. - Small hiatal hernia. - Erythematous duodenopathy. Biopsied. - Biopsies were taken with a cold forceps for evaluation of eosinophilic esophagitis. Recommendations : - Discharge patient to home. - Continue present medications. My findings are described in the full procedure note, which is enclosed. If I can be of further assistance, please feel free to contact me at . Sincerely, Zach Benoit, 01/15/2024 1:30:24 PM This report has been signed electronically.
--- NOTE | 2024-01-15 13:31 | PCM.POST.ANE ---
Anesthesia: Postop Eval I Current Vital Signs Temperature: 97.4 F Pulse Rate: 92 Blood Pressure: 129/88 Respiratory Rate: 18 Pulse Ox: 97 Oxygen Delivery Method: Room Air Assessment Airway patent: Yes Spontaneous unlabored respirations: Yes Mental status: Asleep nausea: No Vomiting: No Anesthesia Complication: No Fluid Hydration Crystalloid volume administer (ml): 60 Total IV fluid infused: 60 Progress Note Anesthesia document: Postop Eval 1 completed: Yes
--- NOTE | 2024-01-15 14:39 | PCM.POSTANE2 ---
Anesthesia Postop Eval I Sum Postop Eval Completion status Anesthesia document: Postop Eval 1 completed: Yes Anesthesia Postop Eval I Summary Anesthesia Postop Eval I Summary: Anesthesia Postop Eval I: Assessment Summary Airway patent Yes 01/15/24 13:32 [email or web address] Spontaneous unlabored Yes 01/15/24 13:32 [email or web address] respirations Mental status Asleep 01/15/24 13:32 [email or web address] nausea No 01/15/24 13:32 [email or web address] Vomiting No 01/15/24 13:32 [email or web address] Anesthesia Postop Eval I: Fluid Summary Crystalloid volume administer 60 01/15/24 13:32 [email or web address] (ml) Colloids volume administered ( ml) Blood Product volume administered (ml) Total IV fluid infused 60 01/15/24 13:32 [email or web address] Anesthesia Postop Eval I: Summary Notes Anesthesia Complication No 01/15/24 13:32 [email or web address] Anesthesia Complication Comment: Post-operative progress note Anesthesia: Postop Eval II Evaluation Mental status: Awake Pain Level: 0 nausea: No Vomiting: No
--- OUTSIDE RECORDS SUMMARY | 2024-01-15 16:49 | XMS RPT_ITS | CCD ---
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 Name Role Phone MORRO BECK Unavailable Unavailable *SELF, REFERRED Unavailable Unavailable Yoselin Shannon Unavailable Unavailable Yoselin Shannon Primary Care Provider Yoselin Shannon Primary Care Provider Yoselin Shannon MD Primary Care Provider Mirtha ADLER, Yoselin Primary Care Provider Yoselin Shannon MD Primary Care Provider Yoselin Shannon MD Primary Care Provider [phone] Beatrice Parisi DO Primary Care Provider Unavailable Primary Care Provider UnavailHeron Malone Cnw/Electrical Journeyman, Beatrice Primary Care Prov ider Chago Gallego DO Primary Care Provider [phone] Chago Galelgo DO Primary Care Provider Beatrice Parisi DO Primary Care Provider Uma Kelsey MD Unavailable Chago Gallego DO Primary Care Provider Uma Kelsey MD Unavailable Unavailable Primary Care Provider UnavailSheila Zepeda DO Unavailable FAY CARTER Attending Unavailable CHAGO GALLEGO Referring Unavailable CHAGO GALLEGO Primary Care Unavailable VENANCIO RICHARDS Attending Unavailable CHAGO GALLEGO Referring Unavailable CHAGO GALLEGO Primary Care Unavailable PHILLIP PRASAD Attending Unavailable SAMANTHA PRASADEN Referring Unavailable YOSELIN ADAMS Attending Unavailable LYNNE HALE Attending Unavailable JULIÁN CHAGO Primary Care Unavailable PHILLIP PRASAD Attending Unavailable LYNNE HALE Attending Unavailable LYNNE HALE Referring Unavailable JOIBETH, CHAGO Primary Care Unavailable JULIÁN, CHAGO GAVI Primary Care Unavailab VASILIY Roberson Attending Unavailable SHEILA SWARTZ Attending Unavailable CHAGO GALLEGO Primary Care Unavailab UMA Mayo Attending Unavailable BEATRICE PARISI Primary Care Unavailable Allergies Allergy Classification Reported Allergen(s) Allergy Type Date of Onset Reaction(s) Facility (10 sources) Nitrofurantoin Drug Allergy 07-14-19 18 [place] (10 sources) Phenazopyridine Drug Allergy 10-17-19 18 [place] (20 sources) silver sulfADIAZINE; Translations: [SILVER SULFADIAZINE] Drug Allergy 01-26-20 15 [place] (10 sources) Sulfamethoxazole / Trimethoprim Drug Allergy 10-14-19 18 Hives, Other (See Comments) [place] (10 sources) Tetracyclines & Related Propensity to adverse reactions to drug 01-26-20 15 [place] (2 sources) Adhesive Tape Propensity to adverse reactions to drug 04-20-19 22 Rash [facility] (20 sources) Erythromycin; Translations: [ERYTHROMYCIN] Drug Allergy 12-28-19 19 Hives, Unknown [facility] (20 sources) Latex; Translations: [LATEX] Propensity to adverse reactions to drug 01-26-20 15 Rash [facility] Work Phone: (2 sources) Apricot Flavor Propensity to adverse reactions to drug 04-13-19 22 [facility] (20 sources) NITROFURANTOIN, MACROCRYSTALS / Nitrofurantoin, Monohydrate; Translations: [NITROFURANTOIN MONOHYD/M-CRYST] Drug Allergy 12-28-19 19 [facility] Work Phone: (20 sources) Phenazopyridine; Translations: [PHENAZOPYRIDINE] Drug Allergy 10-01-19 21 [facility] Work Phone: (20 sources) Tetracycline; Translations: [TETRACYCLINE HCL] Drug Allergy 12-28-19 19 Unknown [facility] (20 sources) Soy protein; Translations: [SOY] Drug Allergy 04-10-19 Anaphylaxis [facility] (20 sources) Latex Propensity to adverse reactions 07-17-19 [facility] (20 sources) Nitrofurantoin Drug Allergy 07-17-19 [facility] (20 sources) Silver sulfadiazine Propensity to adverse reactions 07-17-19 [facility] (20 sources) Tetracycline Drug Allergy 07-17-19 [facility] NEGATED: Highlighted row has been ruled out! (2 sources) Other Propensity to adverse reactions 04-13-19 [facility] Work Phone: Medications Current Medications Medication Drug Class(es) Dates Sig (Normalized) Sig (Original) acetaminophen 500 mg oral tablet (20 sources) Start: 07-19-2022 End: 08-18-2022 take 1 tablet by mouth every six hours as needed for pain acetaminophen (Tylenol) 500 MG tablet Indications: Pain Take 1 tablet (500 mg) by mouth every 6 hours as needed for mild pain (1-3). 60 tablet 0 07/19/2022 08/18/2022 Active Start: 07-16-2022 End: 07-19-2022 take 1 tablet by mouth every six hours as needed for pain 650 mg, Oral, Every 6 hours PRN, mild pain (1-3), Pain (1-10), Starting on 07/16/22 at 0625, Give in addition to any other pain medication ordered at same time for any pain indication. Maximum dose of acetaminophen is 4000mg from all sources in 24 hours. Alternate ibuprofen and acetaminophen every 3 hours. Start: 02-01-2021 End: 02-20-2022 take 2 tablets by mouth every four hours as needed acetaminophen (TYLENOL) 325 mg tablet Take 2 tablets by mouth every 4 hours as needed for pain. 30 tablet 1 02/01/2021 02/20/2022 Discontinued Comment on above: Take [address] [facility] every 4 hours as needed for pain. acetaminophen 325 mg / HYDROcodone bitartrate 5 mg oral tablet (1 source) Opioid Agonist Start: 03-28-19 End: 01-13-20 21 take 1 tablet by mouth every four hours as needed for pain, then take 1 tablet by mouth as needed for pain HYDROcodone-acetamin ophen (NORCO) 5-325 MG per tablet Indications: Closed displaced fracture of navicular bone of left foot with routine healing, subsequent encounter Take 1 tablet by mouth every 4 hours as needed for Pain for up to 3 days. Intended supply: 3 days. Take lowest dose possible to manage pain 18 tablet 0 03/28/2020 03/31/2020 Active amitriptyline hydrochloride 25 mg oral tablet (20 sources) Tricyclic Antidepressant Start: 04-19-19 End: 04-18-19 25 take 1 tablet by mouth once daily amitriptyline (Elavil) 25 MG tablet Indications: Chronic migraine w/o aura w/o status migrainosus, not intractable Take 1 tablet (25 mg) by mouth daily. 30 tablet 2 04/19/2023 04/18/2024 Active Start: 07-25-2019 take 1 tablet by [facility] once daily amitriptyline (ELAVIL) 25 MG tablet Indications: Dysuria , Pelvic pain , Interstitial cystitis Take 1 tablet by mouth nightly 30 tablet 5 07/25/2019 Active Comment on above: Take 1 tablet by herberth th every afternoon. Oscar (10 sources) take 10 mg by mouth once daily BORON PO Take 10 mg by mouth 1 (one) time each day. Active calcium chloride 0.0014 meq/ml / potassium chloride 0.004 meq/ml / sodium chloride 0.103 meq/ml / sodium lactate 0.028 meq/ml injectable solution (1 source) Start: 2 lactated ringers infusion cephalexin 500 mg oral capsule (2 sources) Cephalosporin Antibacterial Start: 1 End: 1 take 1 capsule by mouth twice daily cephALEXin (KEFLEX) 500 MG capsule Take 1 capsule by mouth 2 times daily for 7 days 14 capsule 0 05/03/2020 05/10/2020 Active Start: 05-07-2019 cephALEXin (KE FLEX) 500 MG capsule Indications: Recurrent UTI , Pelvic pain Take 1 capsule by mouth as needed (after intercourse) 30 capsule 1 05/07/2019 Active ciprofloxacin 500 mg oral tablet (1 source) Quinolone Antimicrobial Start: 11-28-2018 End: 12-05-2018 take 1 tablet by mouth twice daily ciprofloxacin (CIPRO) 500 MG tablet Indications: Urinary frequency Take 1 tablet by mouth 2 times daily for 7 days 14 tablet 0 11/28/2018 12/05/2018 Active clindamycin 10 mg/ml topical lotion (13 sources) Lincosamide Antibacterial Start: 11-09-2023 clindamycin (Cleocin T) 1 % lotion Apply a thin layer to affected areas twice daily. 60 mL 6 11/09/2023 Active clomiPHENE citrate 50 mg oral tablet (3 sources) Estrogen Agonist/Antagonist Start: 04-01-2020 take 1 tablet by mouth once daily, then take 5-9 tablets by mouth clomiPHENE (CLOMID) 50 MG tablet Take 1 tablet by mouth daily On days 5-9 of cycle 5 tablet 0 04/01/2020 Active [facility] PO (2 sources) take 2 tablets by mouth once daily [facility] PO Take 2 tablets by mouth daily 0 Active Dietary Supplement cap (20 sources) Dietary Suppleme nt cap Take by mouth. MTHFR Supplement Active Dietary Suppleme nt cap Take by mouth. MTHFR Supplement 0 Active Comment on above: Take by mouth. MTHFR Supplement docusate sodium 100 mg oral capsule (7 sources) Start: 07-16-2022 End: 07-29-2022 take 1 capsule by mouth twice daily docusate sodium (Colace) 100 MG capsule Take 1 capsule (100 mg) by mouth 2 times daily for 10 days. 20 capsule 0 07/19/2022 07/29/2022 Active 2 ml fentaNYL 0.05 mg/ml injection (2 sources) Opioid Agonist Start: 04-20-2021 fentaNYL (SUBLIMAZE) injection 50 mcg Start: 04-20-2021 fentaNYL (SUBL IMAZE) injection 25 mcg fluticasone propionate 0.05 mg/actuat metered dose nasal spray (1 source) Corticosteroid Start: 02-12-2019 take 1 spray(s) nasal route once daily fluticasone (FLONASE) 50 MCG/ACT nasal spray Indications: Upper respiratory tract infection, unspecified type 1 spray by Each Nostril route daily 2 Bottle 1 02/12/2019 Active 1 ml hydrALAZINE hydrochloride 20 mg/ml injection (1 source) Arteriolar Vasodilator Start: 04-20-2021 hydrALAZINE (APRESOLINE) injection 5 mg 1 ml HYDROmorphone hydrochloride 1 mg/ml cartridge (2 sources) Opioid Agonist Start: 04-20-2021 HYDROmorphone (DILAUDID) injection 0.5 mg Start: 04-20-2021 HYDROmorphone (DILAUDID) injection 0.25 mg ibuprofen 600 mg oral tablet (20 sources) Nonsteroidal Anti-inflammatory Drug Start: 07-16-2022 End: 08-18-2022 take 1 tablet by mouth every six hours as needed for pain ibuprofen 600 MG tablet Indications: Pain Take 1 tablet (600 mg) by mouth every 6 hours as needed for mild pain (1-3). 60 tablet 0 07/19/2022 08/18/2022 Active Start: 02-01-2021 End: 02-20-2022 take 1 tablet by mouth every six hours as needed ibuprofen (MOTRIN) 600 mg tablet Take 1 tablet by mouth every 6 hours as needed for pain. 28 tablet 1 02/01/2021 02/20/2022 Discontinued Comment on above: Take 1 tablet by herberth th every 6 hours as needed for pain. Iron (20 sources) Iron 18 mg tab T emma by mouth. Active Iron 18 mg tab T emma by mouth. 0 Active Comment on above: Take by mouth. KRILL OIL ORAL (20 sources) KRILL OIL ORAL T emma by mouth. Active KRILL OIL ORAL T emma by mouth. 0 Active Comment on above: Take by mouth. KRILL OIL PO (1 source) take 350 mg by mouth once daily KRILL OIL PO Take 350 mg by mouth daily 0 Active L.acidophilus-L.rham nosus (FLORAJEN WOMEN) 15 billion cell capsule (9 sources) Start: 10-26-2022 take 1 capsule by mouth once daily L.acidophilus-L.rha mnosus (FLORAJEN WOMEN) 15 billion cell capsule Indications: Vaginal odor Take 1 capsule by mouth once daily. 30 capsule 1 10/26/2022 Active Start: 09-01-2022 End: 09-07-2022 take 1 capsule by mouth once daily L.acidophilus-L.rhamnosus (FLORAJEN WOME N) 15 billion cell capsule Indications: Vaginal discharge , Vaginal odor Take 1 capsule by mouth once daily. 30 capsule 2 09/01/2022 09/07/2022 Discontinued Comment on above: Take 1 capsule by mo uth once daily. labetalol hydrochloride 5 mg/ml injectable solution (1 source) beta-Adrenergic Nilesh Start: 04-20-2021 labetalol (NORMODYNE;TRANDATE ) injection 5 mg magnesium oxide 400 mg oral tablet (20 sources) Start: 05-19-2022 take 1 tablet by mouth once daily magnesium oxide 400 mg magnesium tab Take 1 tablet by mouth once daily. 60 tablet 2 05/19/2022 Active Start: 12-29-2021 End: 04-10-2022 take 1 tablet by mouth once daily magnesium oxide 400 mg magnesium tab Take 1 tablet by mouth once daily. 60 tablet 2 04/10/2022 Active Comment on above: Take 1 tablet by herberth once daily. 1 ml meperidine hydrochloride 25 mg/ml cartridge (1 source) Opioid Agonist Start: 04-20-19 meperidine (DEMEROL) injection 12.5 mg mirtazapine 15 mg oral tablet (2 sources) Start: 01-08-20 End: 02-07-20 take 1 tablet by mouth once daily at bedtime mirtazapine (REMERON) 15 mg tablet Indications: PTSD (post-traumatic stress disorder) , Severe episode of recurrent major depressive disorder, without psychotic features (HCC) , Insomnia due to mental condition Take 1 tablet by mouth daily at bedtime. 30 tablet 01/08/2024 02/07/2024 Active naproxen 500 mg oral tablet (6 sources) Nonsteroidal Anti-inflammatory Drug Start: 03-27-19 take 1 tablet by mouth twice daily as needed for pain naproxen (NAPROSYN) 500 MG tablet Take 1 tablet by mouth 2 times daily as needed for Pain 40 tablet 0 03/27/2020 Active Start: 06-03-2019 take 1 tablet by herberth th twice daily at mealtime naproxen sodium (ANAPROX) 550 MG tablet take 1 tablet by mouth twice a day with meals 60 tablet 2 06/03/2019 Active oxyCODONE hydrochloride 5 mg oral tablet (8 sources) Opioid Agonist Start: 07-27-2022 End: 07-29-2022 take 1 tablet by mouth every six hours as needed for pain oxyCODONE (Roxicodone) 5 MG immediate release tablet Indications: Incisional pain Take 1 tablet (5 mg) by mouth every 6 hours as needed for moderate pain (4-6) or severe pain (7-10) for up to 2 days. 8 tablet 0 07/27/2022 07/29/2022 Active Start: 07-19-2022 End: 07-22-2022 take 1 tablet by mouth every six hours as needed for pain oxyCODONE (Roxicodone) 5 MG immediate release tablet Indications: Status post section Take 1 tablet (5 mg) by mouth every 6 hours as needed for severe pain (7-10) for up to 3 days. 12 tablet 0 07/19/2022 07/22/2022 Active Start: 07-16-2022 End: 07-19-2022 take 1 tablet by mouth every four hours as needed for pain oxyCODONE (Roxicodone) immediate release tablet 5 mg Start: 04-20-2021 End: 04-20-2021 oxyCODONE (ROXICODONE) immed iate release tablet 5 mg PNV no.95/ferrous fum/folic ac ( ORAL) (20 sources) PNV no.95/ferrou s fum/folic ac ( ORAL) Take by mouth. Active PNV no.95/ferrou s fum/folic ac ( ORAL) Take by mouth. 0 Active Comment on above: Take by mouth. prazosin 1 mg oral capsule (3 sources) alpha-Adrenergic Nilesh Start: 01-08-2024 End: 02-07-2024 take 1 capsule by mouth once daily at bedtime prazosin (MINIPRESS) 1 mg cap Take 1 capsule by mouth daily at bedtime. 30 capsule 01/08/2024 02/07/2024 Active Start: 05-08-2023 End: 07-07-2023 take 1 capsule by mouth once daily at bedtime prazosin (MINIPRESS) 1 mg cap Indications: Encounter for completion of form with patient , PTSD (post-traumatic stress disorder) , Insomnia due to mental condition , Nightmares associated with chronic post-traumatic stress disorder Take 1 capsule by mouth daily at bedtime. 30 capsule 1 05/08/2023 07/07/2023 Active Comment on above: Take [address] [facility] daily at bedtime. MV-Min-Fe Fum-FA-DHA ( 1 PO) (20 sources) MV-Min- Fe Fum-FA-DHA ( 1 PO) Take by mouth. Active MV-Min- Fe Fum-FA-DHA ( 1 PO) Take by mouth. 0 Active Vit-Fe Fumarate-FA (PNV FOLIC ACID + IRON) 27-1 MG TABS (8 sources) Start: 02-10-2020 take 1 tablet by mouth once daily Vit-Fe Fumarate-FA (PNV FOLIC ACID + IRON) 27-1 MG TABS Take 1 tablet by mouth daily 30 tablet 6 02/10/2020 Active 1 ml promethazine hydrochloride 25 mg/ml injection (1 source) Phenothiazine Start: 04-20-2021 End: 04-20-2021 promethazine (PHENERGAN) injection 6.25 mg propranolol hydrochloride 40 mg oral tablet (4 sources) beta-Adrenergic Nilesh Start: 02-14-2023 End: 05-15-2023 take 1 tablet by mouth once daily propranolol (Inderal) 40 MG tablet Indications: Migraine without aura and without status migrainosus, not intractable Take 1 tablet (40 mg) by mouth daily. 30 tablet 2 02/14/2023 05/15/2023 Active rizatriptan 10 mg disintegrating oral tablet (17 sources) Serotonin-1b and Serotonin-1d Receptor Agonist Start: 04-19-2023 End: 04-18-2024 rizatriptan RAIL MANAGER (Maxalt-RAIL MANAGER) 10 MG disintegrating tablet Indications: Chronic migraine w/o aura w/o status migrainosus, not intractable Take 1 tablet (10 mg) by mouth Once as needed for migraine (can repeat x 1 in 2 hours). May repeat in 2 hours if unresolved. Do not exceed 30 mg in 24 hours. 9 tablet 3 04/19/2023 04/18/2024 Active Vitamin B Complex (20 sources) vitamin B comple x (B COMPLEX ORAL) Take by mouth. Active vitamin B comple x (B COMPLEX ORAL) Take by mouth. 0 Active Comment on above: Take by mouth. Completed/Discontinued Medications Medication Drug Class(es) Dates Sig (Normalized) Sig (Original) citric acid 66.8 mg/ml / sodium citrate 100 mg/ml oral solution (2 sources) Calculi Dissolution Agent, Anti-coagulant Start: 07-16-2022 End: 07-16-2022 take 30 mL by mouth once 30 mL, Oral, Once, On 07/16/22 at 0130, For 1 dose, Pre-Delivery Give immediately prior to transfer to surgery. 1 ml diphenhydrAMINE hydrochloride 50 mg/ml cartridge (3 sources) Histamine-1 Receptor Antagonist Start: 07-16-2022 End: 07-19-2022 take 25 mg intravenously every six hours as needed 25 mg, IntraVENous, Every 6 hours PRN, itching, hives, Starting on 07/16/22 at 0625, Start: 04-20-2021 End: 04-20-2021 diphenhydrAMINE (BENADRYL) i njection 12.5 mg famotidine 20 mg oral tablet (2 sources) Histamine-2 Receptor Antagonist Start: 07-16-2022 End: 07-19-2022 take 1 tablet by mouth every twenty-four hours as needed for gastroesophageal reflux disease 20 mg, Oral, Daily PRN, indigestion, heartburn, Starting on 07/16/22 at 0625, Renal dose per pharmacy for peptic ulcer prophylaxis. ferrous sulfate 325 mg oral tablet (20 sources) Start: 07-16-2022 End: 07-19-2022 take 325 mg by mouth twice daily at mealtime 325 mg, Oral, 2 times daily with meals, First dose on 07/16/22 at 0800, Start if Hgb less than 10. take 1 tablet by herberth th once daily at breakfast ferrous sulfate 325 (65 Fe) MG tablet Ta ke 325 mg by mouth daily (with breakfast). Active take 10 mg by mouth once daily F errous Sulfate (IRON PO) Take 10 mg by mouth daily 0 Active fluconazole 150 mg oral tablet (3 sources) Azole Antifungal Start: 01-07-2024 End: 01-07-2024 take 1 tablet by mouth once fluconazole (Diflucan) 150 MG tablet Take 1 tablet (150 mg) by mouth Once for 1 dose. 1 tablet 01/07/2024 01/07/2024 Start: 01-02-2024 End: 01-02-2024 take 1 tablet by mouth once fluconazole (Diflucan) 150 MG tablet Take 1 tablet (150 mg) by mouth Once for 1 dose. 1 tablet 01/02/2024 01/02/2024 Active uihwhlod-kuavohhjoktp-vaosdy er (REPHRESH) gel (2 sources) Start: 09-01-2022 End: 09-27-2022 bdubrdpo-rytsudaqnyin-lxoczz er (REPHRESH) gel Indications: Vaginal discharge , Vaginal odor Use 1 Applicator vaginally as needed (every 3 days as needed for vaginal odor). 8 g 2 09/01/2022 09/27/2022 Discontinued Start: 09-01-2022 glycerin-polyc arbophl-carbomer (REPHRESH) gel Indications: Vaginal discharge , Vaginal odor Use 1 Applicator vaginally as needed (every 3 days as needed for vaginal odor). 8 g 2 09/01/2022 Active Comment on above: Use 1 Applicator vag inally as needed (every 3 days as needed for vaginal odor). hydrocortisone acetate 25 mg rectal suppository (3 sources) Corticosteroid Start: 07-17-2022 End: 07-19-2022 hydrocortisone (Anusol-HC) suppository 25 mg Start: 04-22-2021 hydrocortisone (ANUSOL-HC) 2.5 % CREA rectal cream Apply bid 1 each 0 04/22/2021 Active HYDROmorphone (Dilaudid) injection 0.25 mg (2 sources) Start: 07-16-2022 End: 07-19-2022 HYDROmorphone (Dilaudid) injection 0.25 mg iopamidol (ISOVUE-300) 61 % injection 50 mL (1 source) Start: 04-20-2021 End: 04-20-2021 iopamidol (ISOVUE-300) 61 % injection 50 mL 1 ml ketorolac tromethamine 30 mg/ml cartridge (1 source) Nonsteroidal Anti-inflammatory Drug, Cyclooxygenase Inhibitor Start: 06-02-2021 End: 06-02-2021 ketorolac (TORADOL) injection 30 mg lactobacillus acidophilus 460 mg oral capsule (19 sources) Start: 09-07-2022 take 1 capsule by mouth once daily Lactobacillus acidophilus (FLORAJEN ACIDOPHILUS) 20 billion cell capsule Indications: Vaginal odor Take 1 capsule by mouth once daily. 30 capsule 2 09/07/2022 Active Start: 03-21-2021 End: 02-20-2022 take 1 capsule by mouth once daily Lactobacillus acidophilus (FLORAJEN ACIDOPHILUS) 20 billion cell cap Indications: Vaginal discharge Take 1 capsule by mouth once daily. 30 capsule 1 03/21/2021 02/20/2022 Discontinued Comment on above: Take [address] [facility] once daily. lanolin 1000 mg/ml topical cream (2 sources) Start: 07-17-19 End: 07-20-19 Topical, Every 1 hour PRN, dry skin, nipple discomfort, Starting on 07/16/22 at 0625, Apply to affected area levonorgestrel 1.5 mg oral tablet (5 sources) Progestin, Progestin-containing Intrauterine Device Start: 11-09-19 End: 11-09-19 take 1 tablet by mouth once levonorgestrel (Plan B) 1.5 MG tablet Take 1 tablet (1.5 mg) by mouth Once for 1 dose. 1 tablet 11/09/2023 11/09/2023 Start: 03-22-2023 End: 03-22-2023 take 1 tablet by mouth once levonorgestrel (Plan B) 1. 5 MG tablet Take 1 tablet (1.5 mg) by mouth Once for 1 dose. 1 tablet 0 03/22/2023 03/22/2023 Active levonorgestrel ( MIRENA, 52 MG,) IUD 52 mg 1 each by Intrauterine route once 0 Active lidocaine 0.04 mg/mg medicated patch (3 sources) Antiarrhythmic, Amide Local Anesthetic Start: 07-17-2022 End: 07-19-2022 Lidocaine 4 % patch 1 patch Start: 04-20-2021 End: 04-20-2021 lidocaine PF 1 % injection 1 mL miconazole nitrate 20 mg/ml vaginal cream (1 source) Azole Antifungal Start: 01-04-2024 End: 01-11-2024 miconazole (Micotin) 2 % vaginal cream Insert 1 applicator into the vagina Nightly for 7 days. 35 g 01/04/2024 01/11/2024 mineral oil 0.14 mg/mg / petrolatum 0.749 mg/mg / phenylephrine hydrochloride 0.0025 mg/mg rectal ointment (2 sources) alpha-1 Adrenergic Agonist Start: 07-18-2022 End: 07-19-2022 phenylephrine-mine ral oil-petrolatum (Preparation H) ointment 1 ml nalbuphine hydrochloride 10 mg/ml injection (1 source) Opioid Agonist/Antagonist Start: 06-02-2021 End: 06-02-2021 nalbuphine (NUBAIN) injection 10 mg NIFEdipine (2 sources) Dihydropyridine Calcium Channel Nliesh Start: 04-10-2022 End: 04-10-2022 apply 1 g rectal route once daily NIFEdipine topical ointment 0.2% (CPD) by RECTAL route once daily. 1 g 0 04/10/2022 04/10/2022 Discontinued Comment on above: by RECTAL route once daily. nitroglycerin 0.004 mg/mg rectal ointment (13 sources) Nitrate Vasodilator Start: 04-10-2022 End: 09-27-2022 take 30 g rectal route once daily nitroglycerin 0.4 % (w/w) oint by RECTAL route once daily. 30 g 0 04/10/2022 09/27/2022 Discontinued Comment on above: by RECTAL route once daily. 2 ml ondansetron 2 mg/ml injection (2 sources) Serotonin-3 Receptor Antagonist Start: 06-02-2021 End: 06-02-2021 ondansetron (ZOFRAN) injection 4 mg Start: 04-20-2021 End: 04-20-2021 ondansetron (ZOFRAN) injecti on 4 mg ondansetron ODT (Zofran-ODT) disintegrating tablet 4 mg (2 sources) Start: 07-16-2022 End: 07-19-2022 take 1 tablet by mouth every eight hours as needed for nausea and vomiting ondansetron ODT (Zofran-ODT) disintegrating tablet 4 mg polyethylene glycol 3350 26201 mg powder for oral solution (2 sources) Osmotic Laxative Start: 07-17-2022 End: 07-19-2022 polyethylene glycol (PEG) 3350 (Miralax) packet 17 g Fvkyqubx-Nw-Sxa-Fe-FA ( VITAMIN) tab (15 sources) End: 02-20-2022 take 1 tablet by mouth once Flpgpyhf-Tv-Grg-Fe-F A ( VITAMIN) tab Take 1 tablet by mouth. 0 02/20/2022 Discontinued take 1 tablet by mouth once Pren atal Pjmjptzk-At-Oem-Fe-FA ( VITAMIN) tab Take 1 tablet by mouth. 0 Active Comment on above: Take 1 tablet by herberth th. vitamin tablet (2 sources) Start: 07-17-19 End: 07-20-19 take 1 tablet by mouth once daily 1 tablet, Oral, Daily, First dose on 07/16/22 at 0900, Begin when normal bowel activity resumes. sertraline 50 mg oral tablet (14 sources) Serotonin Reuptake Inhibitor Start: 04-10-19 End: 09-28-19 take 1 tablet by mouth once daily, then take 0.5 tablet by mouth once daily, then take 1 tablet by mouth once daily sertraline (ZOLOFT) 50 mg tablet Indications: Depression, unspecified depression type Take 1 tablet by mouth once daily. Take 1/2 tab once daily for 2 weeks then increase to 1 tab daily. 90 tablet 0 04/10/2022 09/27/2022 Discontinued Comment on above: Take 1 tablet by herberth th once daily. Take 1/2 tab once daily for 2 weeks then increase to 1 tab daily. simethicone 80 mg chewable tablet (2 sources) Start: 07-17-19 End: 07-20-19 take 1 tablet by mouth every six hours as needed 80 mg, Oral, Every 6 hours PRN, flatulence, cramping, Starting on 07/16/22 at 0625, 5 ml sodium chloride 9 mg/ml injection (12 sources) Start: 07-17-19 End: 07-20-19 take 1 dose intravenously twice daily 5-40 mL, IntraVENous, Every 12 hours scheduled (2 times per day), First dose on 07/16/22 at 0900, or Line Patency: Peripheral IV = 5 mL; Midline or Central Line = 10 mL/lumen. & nbsp;If following IV push medication, administer flush at same rate as the IV push. Flush volume is determined by type of infusion therapy being given. Fo r non-viscous solutions use: Peripheral IV = 5 mL Midline or Central Line = 10 mL/lumen For viscous solutions (i.e. blood components,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 affect renal tubular creatinine secretion. GFR/1.73 sq M.predicted among blacks MDRD (S/P/Bld) [Vol rate/Area] mL/min/{1.73_m2} >60 mL/min [facility] Work Phone: Glucose [Mass/Vol] 107 mg/dL High 70 - 100 mg/dL [facility] Work Phone: Interpretation and review of laboratory results Abnormal [facility] Work Phone: Potassium [Moles/Vol] 4.5 mmol/L 3.5 - 5.1 mmol/L [facility] Work Phone: Sodium [Moles/Vol] 138 mmol/L 135 - 145 mmol/L [facility] Work Phone: Urea nitrogen (BldV) [Mass/Vol] 7 mg/dL Low 9 - 20 mg/dL [facility] Work Phone: Test Performed by [facility] [employer] [facility], [address] [place], [place] [address] LAB [facility] Work Phone: CT Head WO Contraston 2021 [facility]: [id number] Computed Tomography ACCESSION EXAM DATE/TIME PROCEDURE ORDERING PROVIDER [id number] 06/02/2021 17:[address] Head or Brain w/o MD GABY, LICO Contrast CPT code 87649 Reason For Exam (CT Head or Brain w/o Contrast) headache Report CT BRAIN WITHOUT CONTRAST CLINICAL INDICATION: headache TECHNIQUE: Noncontrast CT scan of the brain. Multiplanar reformations. COMPARISON: None FINDINGS: Brain volume is normal for age. No hemorrhage, mass effect, or midline shift. No hydrocephalus. No pathologic extra-axial fluid collection. Normal basal cisterns. No evidence of acute cortical infarct. IMPRESSION: 1. No acute intracranial finding. Report Dictated on Workstation: [email or web address] --- Final --- Dictating Physician: MD JUAREZ JOHN R Signed Date and Time: 06/02/2021 5:56 pm Signed by: MD JUAREZ JOHN R Transcribed Date and Time: 06/02/2021 5:57 [facility] Joshua Juarez MD - 06/02/2021 Patient Name: RG KELLEY Computed Tomography ACCESSION EXAM DATE/TIME PROCEDURE ORDERING PROVIDER [id number] 06/02/2021 17:[address] Head or Brain w/o MD GABY, LICO Contrast CPT code 23474 Reason For Exam (CT Head or Brain w/o Contrast) headache Report CT BRAIN WITHOUT CONTRAST CLINICAL INDICATION: headache TECHNIQUE: Noncontrast CT scan of the brain. Multiplanar reformations. COMPARISON: None FINDINGS: Brain volume is normal for age. No hemorrhage, mass effect, or midline shift. No hydrocephalus. No pathologic extra-axial fluid collection. Normal basal cisterns. No evidence of acute cortical infarct. IMPRESSION: 1. No acute intracranial finding. Report Dictated on Workstation: [email or web address] --- Final --- Dictating Physician: MD JUAREZ JOHN R Signed Date and Time: 06/02/2021 5:56 pm Signed by: MD JUAREZ JOHN R Transcribed Date and Time: 06/02/2021 5:57 [facility] Work Phone: Radiology Study observation (narrative) [facility] Work Phone: CT Head WO ContrastOrdered B y: Joshua Juarez on 06-02-2021 [facility] Work Phone: CT Head or Brain w/o Contras ton 06-02-2021 CT Head or Brain w/o Contrast [facility]: [id number] Computed Tomography ACCESSION EXAM DATE/TIME PROCEDURE ORDERING PROVIDER [id number] 06/02/2021 17:[address] Head or Brain w/o MD GABY, LICO Contrast CPT code 93414 Reason For Exam (CT Head or Brain w/o Contrast) headache Report CT BRAIN WITHOUT CONTRAST CLINICAL INDICATION: headache TECHNIQUE: Noncontrast CT scan of the brain. Multiplanar reformations. COMPARISON: None FINDINGS: Brain volume is normal for age. No hemorrhage, mass effect, or midline shift. No hydrocephalus. No pathologic extra-axial fluid collection. Normal basal cisterns. No evidence of acute cortical infarct. IMPRESSION: 1. No acute intracranial finding. Report Dictated on Workstation: [email or web address] Final Dictating Physician: MD JUAREZ JOHN R Signed Date and Time: 06/02/2021 5:56 pm Signed by: MD JUAREZ JOHN R Transcribed Date and Time: 06/02/2021 5:57 Normal [facility] HCG,Urine Qualon 06-02-2021 Beta HCG ( test) Ql (U) Negative Normal Negative [facility] Comment on above: Result Comment: Plea se note: Very dilute urine specimens, as indicated by a low specific gravity, may not contain inside outside sales representative levels of hCG. If is still suspected, a first morning urine specimen should be collected 48 hours later and tested. is the most common reason for HCG in urine, although choriocarcinoma, hydatidiform mole, and certain nontropho- blastic malignancies also result in detectable urinary HCG levels. Sensitivity = 20mIU/mL. Performed By: #### H CGUR #### [facility] [address] [place] [address] [facility] Urine Qual [place] 2021 Beta HCG ( test) Ql (U) Negative Negative NA [employer] Work Phone: Comment on above: Please note: Very di lute urine specimens, as indicated by a low specific gravity, may not contain inside outside sales representative levels of hCG. If is still suspected, a first morning urine specimen should be collected 48 hours later and tested. is the most common reason for HCG in urine, although choriocarcinoma, hydatidiform mole, and certain nontropho- blastic malignancies also result in detectable urinary HCG levels. Sensitivity = 20mIU/mL. Test Performed by [facility], [address] , [address] LAB [facility] Work Phone: Hemogramon 06-02-2021 Erythrocyte distribution width (RBC) [Ratio] 13.8 % Normal 11.5-14.5 [facility] Comment on above: Performed By: #### B MP3, HEMOG #### [facility] [address] [place] [address] Hematocrit (Bld) [Volume fraction] 37.3 % Normal 35.0-47.0 [facility] Comment on above: Performed By: #### B MP3, HEMOG #### [facility] [address] [place] [address] Hemoglobin (Bld) [Mass/Vol] 12.4 g/dL Normal 11.7-16.0 [facility] Comment on above: Performed By: #### B MP3, HEMOG #### [facility] [address] [place] [address] MCH (RBC) [Entitic mass] 26.3 pg Normal 26.0-34.0 [facility] Comment on above: Performed By: #### B MP3, HEMOG #### [facility] [address] [place] [address] MCHC 33.2 % Normal 32.0-36.0 [facility] Comment on above: Performed By: #### B MP3, HEMOG #### [facility] [address] [place] [address] MCV (RBC) [Entitic vol] 79.2 fL Normal 79.0-98.0 [facility] Comment on above: Performed By: #### B MP3, HEMOG #### [facility] [address] [place] [address] Platelet mean volume (Bld) [Entitic vol] 7.3 fL Low 7.4-10.4 [facility] Comment on above: Performed By: #### B MP3, HEMOG #### [facility] [address] [place] [address] Platelets (Bld) [#/Vol] 296 10*3/uL Normal 140-440 [facility] Comment on above: Performed By: #### B MP3, HEMOG #### [facility] [address] [place] [address] RBC (Bld) [#/Vol] 4.71 10*6/uL Normal 3.80-5.20 [facility] Comment on above: Performed By: #### B MP3, HEMOG #### [facility] [address] [place] [address] WBC (Bld) [#/Vol] 7.7 10*3/uL Normal 3.6-10.7 [facility] Comment on above: Performed By: #### B MP3, HEMOG #### [facility] [address] [place] [address] Hemogram (CBC)on 06-02-2021 Hematocrit (Bld) [Volume fraction] 37.3 % 35.0 - 47.0 % [facility] Work Phone: [phone] Hemoglobin.gastrointestin al spec 1 Ql (Stl) 12.4 g/dL 11.7 - 16.0 g/dL [facility] Work Phone: [phone] Interpretation and review of laboratory results Abnormal [facility] Work Phone: [phone] MCH (RBC) [Entitic mass] 26.3 pg 26.0 - 34.0 pg [facility] Work Phone: [phone] MCHC (RBC) [Mass/Vol] 33.2 % 32.0 - 36.0 % [facility] Work Phone: [phone] MCV (RBC) [Entitic vol] 79.2 fL 79.0 - 98.0 fL [facility] Work Phone: Platelet distribution width (Bld) [Ratio] 13.8 % 11.5 - 14.5 % [employer] Work Phone: [phone] Platelet mean volume (Bld) [Entitic vol] 7.3 fL Low 7.4 - 10.4 fL [employer] Work Phone: [phone] Platelets (Bld) [#/Vol] 296 10*3/uL 140 - 440 10*3/uL [employer] Work Phone: [phone] RBC (Bld) [#/Vol] 4.71 10*6/uL 3.80 - 5.2 0 10*6/uL [employer] Work Phone: [phone] WBC (Bld) [#/Vol] 7.7 10*3/uL 3.6 - 10.7 10*3/uL [employer] Work Phone: [phone] Test Performed by [employer], [address] [place] [address]. [address] LAB [employer] Work Phone: [phone] CULTURE URINEon 04-21-2021 CULTURE URINE CULTURE URINE --> Status: F No growth (<1,000 CFU/ml). Normal [facility] Comment on above: Performed By: #### C /UR #### [facility] [address] [place] [id number] Op Noteon 04-21-2021 Op Note PATIENT: RG KELLEY ADMISSION DATE: 04/20/2021 SURGERY DATE: 04/20/2021 DATE OF : 1990 AGE: 30 ADMITTING PHYSICIAN: Willam Benjamin MD ATTENDING PHYSICIAN: Willam Benjamin MD DICTATING PHYSICIAN: Willam Benjamin MD OPERATIVE RECORD Procedure: 1. CYSTOSCOPY. 2. RETROGRADE PYELOGRAPHY. 3. BLADDER HYDRODISTENTION. 4. DMSO INSTILLATION. Preoperative Diagnosis: Frequency, urgency and flank pain. Postoperative Diagnoses: 1. Frequency, urgency and flank pain. 2. Interstitial cystitis. Anesthesia: General. Telecommunication Operator: None. Findings: This 30-year-old woman delivered a baby in January. She has signs and symptoms consistent with interstitial cystitis. The procedure, risks, and complications were discussed. Questions were answered. Consent was obtained. Findings at surgery: Bladder capacity is approximately 600 cc. Retrograde pyelograms show no upper urinary tract obstructions, filling defects, or stones. Urine culture was pending. Interstitial cystitis was noted upon hydrodistention. Preoperative belladonna and opium suppository was placed in the rectum and 2% Xylocaine was instilled into the urethra. At the end of the procedure, the 4-drug combination of DMSO, heparin, hydrocortisone, and Sensorcaine and DMSO were instilled without incident. The patient knows the pump her breasts for the next 24 hours and discarded. Description of Procedure: A proper surgical safety checklist was performed and all operating room personnel did participate. Under general anesthesia, in the dorsal lithotomy position, the patient was sterilely prepped and draped. A 21-Spanish Storz cystoscope was inserted into the bladder under direct vision. A belladonna and opium suppository had been placed in the rectum. Urine culture was obtained. Clear urine was seen exiting through both ureteral orifices. Retrograde pyelograms were performed because of the history of flank pain. No upper urinary tract obstructions, filling defects, or stones could be seen. Full inspection of bladder showed no tumors or significant mucosal abnormalities. The bladder was distended to full capacity, when decompressed showed glomerulations consistent with interstitial cystitis. The bladder was distended several more times and then emptied. The 4-drug combination was instilled and the scope was withdrawn. A 2% Xylocaine was used to anesthetize urethra. The patient was returned to the supine position and transported to recovery area in stable condition. [employer] Job ID: [id number] Willam Benjamin MD DOD:04/20/2021 11:42 P /dsk DOT:04/21/2021 09:56 A Job Number: [id number] Document Number: [id number] cc: Willam Benjamin MD [address] [address] CR Urography Retrograde w/ + w/o KUBon 04-20-2021 CR Urography Retrograde w/ + w/o KUB Patient Name: RG KELLEY Diagnostic Radiology ACCESSION EXAM DATE/TIME PROCEDURE ORDERING PROVIDER [id number] 04/20/2021 13:30 EST CR Urography Retrograde WILLAM BENJAMIN w/ + w/o KUB CPT code 68246 Reason For Exam (CR Urography Retrograde w/ + w/o KUB) cystoscopy, retrograde pyelograms fluro rm 17 Report CLINICAL INFORMATION: Hematuria. FLUOROSCOPY USED: 42 seconds, 0 cine run(s), and 4 fluoro spot(s) captured. FINDINGS: Both the left and right ureters are seen to be cannulated. There is no evidence of hydronephrosis or hydroureter. No filling defects are seen to suggest ureteral stones. The bladder is not adequately imaged. IMPRESSION: 1. No hydronephrosis or hydroureter. 2. No evidence of ureteral calculi. Fluoro time per Dr. Benjamin in the operating room. Report Dictated on Final Dictated: 04/22/2021 8:05 am Dictating Physician: MD GONZALES JEFFREY Signed Date and Time: 04/22/2021 8:05 am Signed by: MD GONZALES JEFFREY Transcribed Date and Time: 04/22/2021 8:05 Normal [facility] , urine POCTon 02-0 Beta HCG ( test) Ql (U) Negative Negative [facility] Work Phone: [phone] HCG ( test) Ql (U) [id number] [facility] Work Phone: [phone] Interpretation and review of laboratory results Normal [facility] Work Phone: [phone] Negative QC Pass/Fail Pass [facility] Work Phone: [phone] Positive QC Pass/Fail Pass [facility] Work Phone: [phone] [facility] Work Phone: CBC Auto Differentialon 03-0 Absolute Baso # 0.3 10*3/uL High 0 - 0.2 10*3/uL [facility] Work Phone: [phone] Absolute Neut # 7.1 10*3/uL High 1.8 - 7 10*3/uL [facility] Work Phone: Basophils/100 WBC (Bld) 2.8 % High 0 - 2 % [facility] Work Phone: 1 Eosinophils (Bld) [#/Vol] 0.1 10*3/uL 0 - 0.5 1 0*3/uL [facility] Work Phone: 1 Eosinophils/100 WBC (Bld) 1.3 % 1 - 6 % [facility] Work Phone: Erythrocyte distribution width (RBC) [Ratio] 13.0 % 11.5 - 14.5 % [facility] Work Phone: 1 Granulocytes/100 WBC (Bld) 78.1 % 40 - 80 % [facility] Work Phone: Hematocrit (Bld) [Volume fraction] 37.0 % 35 - 47 % [facility] Work Phone: Hemoglobin (Bld) [Mass/Vol] 12.0 g/dL 11.7 - 16 g/dL [facility] Work Phone: Interpretation and review of laboratory results Abnormal [facility] Work Phone: Lymphocytes (Bld) [#/Vol] 1.2 10*3/uL 1 - 4.3 1 0*3/uL [facility] Work Phone: Lymphocytes/100 WBC (Bld) 13.5 % Low 20 - 40 % [facility] Work Phone: 1 MCH (RBC) [Entitic mass] 26.1 pg 26 - 34 pg [facility] Work Phone: MCHC (RBC) [Mass/Vol] 32.4 % 32 - 36 % [facility] Work Phone: MCV (RBC) [Entitic vol] 80.6 fL 79 - 98 fL [facility] Work Phone: Monocytes (Bld) [#/Vol] 0.4 10*3/uL 0 - 0.8 10* 3/uL [facility] Work Phone: [phone] Monocytes/100 WBC (Bld) 4.3 % 2 - 10 % [facility] Work Phone: Platelet mean volume (Bld) [Entitic vol] 7.3 fL Low 7.4 - 10.4 fL [facility] Work Phone: Platelets (Bld) [#/Vol] 281 10*3/uL 140 - 440 10*3/uL [facility] Work Phone: RBC (Bld) [#/Vol] 4.59 10*6/uL 3.8 - 5.2 10*6/uL [facility] Work Phone: WBC (Bld) [#/Vol] 9.1 10*3/uL 3.6 - 10.7 10*3/uL [facility] Work Phone: 1 Test [facility] by [facility], [address] [place], [place] [address] , [address] Work Phone: Comprehensive Metabolic Pane marcella 05-17-2020 Albumin [Mass/Vol] 4.5 g/dL 3.5 - 5 g/dL [facility] Work Phone: ALP [Catalytic activity/Vol] 47 U/L 38 - 126 U/L [facility] Work Phone: ALT [Catalytic activity/Vol] 12 U/L 0 - 34 U/L [facility] Work Phone: Comment on above: The ALT test is perf ormed by an updated assay method. Please note that the reference intervals have been changed and are now sex specific. Anion gap [Moles/Vol] 11 mmol/L 3 - 13 mmol/L [facility] Work Phone: AST [Catalytic activity/Vol] 18 U/L 15 - 46 U/L [facility] Work Phone: Bilirubin Ql (U) 0.3 mg/dL 0.2 - 1.3 mg/dL [facility] Work Phone: Calcium [Mass/Vol] 9.6 mg/dL 8.4 - 10. 4 mg/dL [facility] Work Phone: Chloride [Moles/Vol] 106 mmol/L 98 - 107 mmol/L [facility] Work Phone: CO2 [Moles/Vol] 21 mmol/L Low 22 - 30 mmol/L [facility] Work Phone: [phone] Creatinine [Mass/Vol] 0.79 mg/dL 0.52 - 1.25 mg/dL [employer] Work Phone: [phone] EGFR IF NonAfrican [place]an >90.0 >60 mL/min [facility] Work Phone: [phone] Comment on above: KDIGO guidelines pro vide the following GFR categories: Stage GFR(ml/min/1.73 m2) Terms G1 >=90 Normal or high G2 60-89 Mildly decreased* G3a 45-59 Mildly to moderately decreased G3b 30-44 Moderately to severely decreased G4 15-29 Severely decreased G5 <15 Kidney failure *Relative to young adult level. In the absence of evidence of kidney damage, neither GFR category G1 nor G2 fulfill the criteria for CKD. The CKD-EPI equation is validated in individuals 18 years of age and older. Currently the best equation for estimating glomerular filtration rate (GFR) from serum creatinine in children is the Bedside Castro equation. It is less accurate in patients with extremes of muscle mass, restriction of dietary protein, ingestion of creatine, extra-renal metabolism of creatinine, or treatment with medications that affect renal tubular creatinine secretion. GFR/1.73 sq M predicted among blacks MDRD (S/P/Bld) [Vol rate/Area] mL/min/{1.73_m2} >60 mL/min [facility] Work Phone: [phone] Glucose [Mass/Vol] 96 mg/dL 70 - 100 mg/dL [facility] Work Phone: [phone] Interpretation and review of laboratory results Abnormal [facility] Work Phone: [phone] Potassium [Moles/Vol] 4.5 mmol/L 3.5 - 5.1 mmol/L [facility] Work Phone: [phone] Protein [Mass/Vol] 7.2 g/dL 6.3 - 8.2 g/dL [facility] Work Phone: [phone] Sodium [Moles/Vol] 138 mmol/L 135 - 145 mmol/L [facility] Work Phone: [phone] Urea nitrogen [Mass/Vol] 10 mg/dL 7 - 20 mg/d L [facility] Work Phone: [phone] Test Performed by [facility] Jeannine Hernandez [place], [place] [address] [facility] Work Phone: CT LOWER EXTREMITY LEFT MILENA Vieyra 04-06-2020 Patient Name: RG KELLEY Computed Tomography ACCESSION EXAM DATE/TIME PROCEDURE ORDERING PROVIDER [id number] 04/06/2020 08:[address] Low Ext w/o Contrast MORRO LANDAVERDE Left CPT code 75930 Reason For Exam (CT Low Ext w/o Contrast Left) Closed displaced fracture of navicular bone of left foot, initial encounter [S92.252A (ICD-10-CM)]; Closed nondisplaced fracture of anterior process of left calcaneus, initial encounter [S92.025A (ICD-10-CM)]; Closed nondi...reason exceeds allotted space Report Examination: CT left lower extremity without contrast Technique: 1 mm axial images of the left lower extremity obtained without contrast. Coronal and sagittal reformatted images were reviewed. Clinical Indication: Pain. Fracture. Comparison: None Findings: Triangular fracture fragment arising from the dorsum of the proximal navicular, at the level of the talonavicular joint measuring up to 8mm. An additional linear-nondisplace d fracture extends along the lateral body cortex, extending inferiorly to its plantar cortex (images 17-19 series 8 and images 33-38 series 7). Mildly displaced fracture of the dorsal calcaneus, at the level of the calcaneocuboid joint (images 11-22 series 8 and images 73-80 series 4). The fracture margins extend to both the calcaneal cuboid and anterior subtalar joint. No additional fracture or dislocation is identified. The ankle mortise is in anatomic alignment. No osteochondral defects. Within the limitations of CT, the tendons about the ankle are intact without evidence of tendinopathy, tear or TFC no osteoarthritis. No evidence of an ankle joint effusion. Normal osseous mineralization. Normal Achilles tendon. Impression: Triangular fracture fragment arising from the dorsum of the proximal navicular, at the level of the talonavicular joint. Additional linear-nondisplace d fracture extends along the lateral body cortex, extending inferiorly to its plantar Computed Tomography Report cortex. Mildly displaced fracture of the dorsal calcaneus, with extension to both the calcaneocuboid and anterior subtalar joint. Report Dictated on --- Final --- Dictating Physician: MD MALONEY JASON Signed Date and Time: 04/06/2020 9:26 am Signed by: MD MALONEY JASON Transcribed Date and Time: 04/06/2020 9:27 [facility], [place] [facility] Incoming Radiology Results From [facility] - 04/06/2020 9:27 AM EST Patient Name: RG KELLEY [facility]#: [id number] Computed Tomography ACCESSION EXAM DATE/TIME PROCEDURE ORDERING PROVIDER [id number] 04/06/2020 08:[address] Low Ext w/o Contrast MORRO LANDAVERDE Left CPT code 75268 Reason For Exam (CT Low Ext w/o Contrast Left) Closed displaced fracture of navicular bone of left foot, initial encounter [S92.252A (ICD-10-CM)]; Closed nondisplaced fracture of anterior process of left calcaneus, initial encounter [S92.025A (ICD-10-CM)]; Closed nondi...reason exceeds allotted space Report Examination: CT left lower extremity without contrast Technique: 1 mm axial images of the left lower extremity obtained without contrast. Coronal and sagittal reformatted images were reviewed. Clinical Indication: Pain. Fracture. Comparison: None Findings: Triangular fracture fragment arising from the dorsum of the proximal navicular, at the level of the talonavicular joint measuring up to 8mm. An additional linear-nondisplace d fracture extends along the lateral body cortex, extending inferiorly to its plantar cortex (images 17-19 series 8 and images 33-38 series 7). Mildly displaced fracture of the dorsal calcaneus, at the level of the calcaneocuboid joint (images 11-22 series 8 and images 73-80 series 4). The fracture margins extend to both the calcaneal cuboid and anterior subtalar joint. No additional fracture or dislocation is identified. The ankle mortise is in anatomic alignment. No osteochondral defects. Within the limitations of CT, the tendons about the ankle are intact without evidence of tendinopathy, tear or TFC no osteoarthritis. No evidence of an ankle joint effusion. Normal osseous mineralization. Normal Achilles tendon. Impression: Triangular fracture fragment arising from the dorsum of the proximal navicular, at the level of the talonavicular joint. Additional linear-nondisplace d fracture extends along the lateral body cortex, extending inferiorly to its plantar Computed Tomography Report cortex. Mildly displaced fracture of the dorsal calcaneus, with extension to both the calcaneocuboid and anterior subtalar joint. Report Dictated on --- Final --- Dictating Physician: MD MALONEY JASON Signed Date and Time: 04/06/2020 9:26 am Signed by: MD MALONEY JASON Transcribed Date and Time: 04/06/2020 9:27 [employer] [employer] XR ANKLE LEFT (MIN 3 VIEWS)o n 03-27-2020 Patient Name: RG KELLEY Diagnostic Radiology ACCESSION EXAM DATE/TIME PROCEDURE ORDERING PROVIDER [id number] 03/27/2020 13:45 EST CR Ankle 3+ Views Left YANELY SOLANO DANIEL M CPT code 62971 Reason For Exam (CR Ankle 3+ Views Left) pain, fall Report CLINICAL INFORMATION: Left foot and ankle pain after trauma. LEFT ANKLE: AP, oblique, and lateral views of the left ankle are provided without comparison. FINDINGS: There is an acute avulsion fracture involving the dorsum of the left the ventricular. The remaining osseous structures are normal. The ankle mortise is maintained. IMPRESSION: 1. Acute avulsion fracture of the dorsum of the navicular. LEFT FOOT: AP, oblique, and lateral views of left foot are provided without comparison. FINDINGS: There is an acute avulsion fracture involving the dorsum of the left the ventricular. The remaining osseous structures are normal. The mineralization of the bones is normal. There is no radiopaque foreign body. IMPRESSION: 1. Acute avulsion fracture of the dorsum of the navicular. Report Dictated on --- Final --- Dictating Physician: MD GONZALES JEFFREY Signed Date and Time: 03/27/2020 2:26 pm Signed by: MD GONZALES JEFFREY Transcribed Date and Time: 03/27/2020 2:27 [employer] [facility] Incoming Radiology Results From [facility] - 03/27/2020 2:27 PM EST Patient Name: RG KELLEY Diagnostic Radiology ACCESSION EXAM DATE/TIME PROCEDURE ORDERING PROVIDER [id number] 03/27/2020 13:45 EST CR Ankle 3+ Views Left YANELY SOLANO REAGAN Trejo CPT code 93614 Reason For Exam (CR Ankle 3+ Views Left) pain, fall Report CLINICAL INFORMATION: Left foot and ankle pain after trauma. LEFT ANKLE: AP, oblique, and lateral views of the left ankle are provided without comparison. FINDINGS: There is an acute avulsion fracture involving the dorsum of the left the ventricular. The remaining osseous structures are normal. The ankle mortise is maintained. IMPRESSION: 1. Acute avulsion fracture of the dorsum of the navicular. LEFT FOOT: AP, oblique, and lateral views of left foot are provided without comparison. FINDINGS: There is an acute avulsion fracture involving the dorsum of the left the ventricular. The remaining osseous structures are normal. The mineralization of the bones is normal. There is no radiopaque foreign body. IMPRESSION: 1. Acute avulsion fracture of the dorsum of the navicular. Report Dictated on --- Final --- Dictating Physician: MD GONZALES JEFFREY Signed Date and Time: 03/27/2020 2:26 pm Signed by: MD GONZALES JEFFREY Transcribed Date and Time: 03/27/2020 2:27 [place], [place] XR FOOT LEFT (MIN 3 VIEWS)on 03-27-2020 Patient Name: RG KELLEY Diagnostic Radiology ACCESSION EXAM DATE/TIME PROCEDURE ORDERING PROVIDER [id number] 03/27/2020 13:45 EST CR Foot Complete 3+ YANELY SOLANOZELDAEL Neil Views Left CPT code 52593 Reason For Exam (CR Foot Complete 3+ Views Left) pain Report CLINICAL INFORMATION: Left foot and ankle pain after trauma. LEFT ANKLE: AP, oblique, and lateral views of the left ankle are provided without comparison. FINDINGS: There is an acute avulsion fracture involving the dorsum of the left the ventricular. The remaining osseous structures are normal. The ankle mortise is maintained. IMPRESSION: 1. Acute avulsion fracture of the dorsum of the navicular. LEFT FOOT: AP, oblique, and lateral views of left foot are provided without comparison. FINDINGS: There is an acute avulsion fracture involving the dorsum of the left the ventricular. The remaining osseous structures are normal. The mineralization of the bones is normal. There is no radiopaque foreign body. IMPRESSION: 1. Acute avulsion fracture of the dorsum of the navicular. Report Dictated on --- Final --- Dictating Physician: MD GONZALES JEFFREY Signed Date and Time: 03/27/2020 2:26 pm Signed by: MD GONZALES JEFFREY Transcribed Date and Time: 03/27/2020 2:27 [facility] Incoming Radiology Results From [facility] - 03/27/2020 2:27 PM EST Patient Name: RG KELLEY Diagnostic Radiology ACCESSION EXAM DATE/TIME PROCEDURE ORDERING PROVIDER [id number] 03/27/2020 13:45 EST CR Foot Complete 3+ YANELY SOLANO DANIEL M Views Left CPT code 14698 Reason For Exam (CR Foot Complete 3+ Views Left) pain Report CLINICAL INFORMATION: Left foot and ankle pain after trauma. LEFT ANKLE: AP, oblique, and lateral views of the left ankle are provided without comparison. FINDINGS: There is an acute avulsion fracture involving the dorsum of the left the ventricular. The remaining osseous structures are normal. The ankle mortise is maintained. IMPRESSION: 1. Acute avulsion fracture of the dorsum of the navicular. LEFT FOOT: AP, oblique, and lateral views of left foot are provided without comparison. FINDINGS: There is an acute avulsion fracture involving the dorsum of the left the ventricular. The remaining osseous structures are normal. The mineralization of the bones is normal. There is no radiopaque foreign body. IMPRESSION: 1. Acute avulsion fracture of the dorsum of the navicular. Report Dictated on --- Final --- Dictating Physician: MD GONZALES JEFFREY Signed Date and Time: 03/27/2020 2:26 pm Signed by: MD GONZALES JEFFREY Transcribed Date and Time: 03/27/2020 2:27 [place], [place] US BREAST LIMITED LEFTon Patient Name: RG KELLEY ---Ultrasound--- Exam Date/Time 08/08/2019 08:49:50 EDT Exam US Breast Limited Left Ordering Physician MD JERMAIN, YOSELIN VERDIN Accession Number [id number] CPT4 Codes 76852 () Reason For Exam Plap lump Report REASON FOR EXAM: clinical finding. INDICATED PROBLEM: Indicated problem(s): left breast palpable abnormality marble for 2 weeks. PROCEDURE: US BREAST LIMITED LEFT: AUGUST 08, 2019 - Standard views. . FINDINGS: The patient is a 28-year-old presenting with a palpable lump in the left breast x2 weeks with tenderness. Targeted ultrasound is performed in the area of palpable concern at the 3:00 position 2 cm from the nipple. No solid or cystic masses are identified. The background echogenicity is heterogeneous consistent with dense fibroglandular tissue. ASSESSMENT: Category 1 Negative RECOMMENDATION: Clinical correlation. If there are specific findings on physical examination, further evaluation may be clinically warranted. . Report Dictated on --- Final --- Signed Date and Time: 08/08/2019 8:41 am Signed by: MD DOLAN LAUREN B [place], [place] [facility], [facility] Incoming Radiology Results From [facility] - 08/08/2019 12:59 PM EDT Patient Name: RG KELLEY ---Ultrasound--- Exam Date/Time 08/08/2019 08:49:50 EDT Exam US Breast Limited Left Ordering Physician MD JERMAIN, YOSELIN VERDIN Accession Number [id number] CPT4 Codes 55812 () Reason For Exam Plap lump Report REASON FOR EXAM: clinical finding. INDICATED PROBLEM: Indicated problem(s): left breast palpable abnormality marble for 2 weeks. PROCEDURE: US BREAST LIMITED LEFT: AUGUST 08, 2019 - Standard views. . FINDINGS: The patient is a 28-year-old presenting with a palpable lump in the left breast x2 weeks with tenderness. Targeted ultrasound is performed in the area of palpable concern at the 3:00 position 2 cm from the nipple. No solid or cystic masses are identified. The background echogenicity is heterogeneous consistent with dense fibroglandular tissue. ASSESSMENT: Category 1 Negative RECOMMENDATION: Clinical correlation. If there are specific findings on physical examination, further evaluation may be clinically warranted. . Report Dictated on --- Final --- Signed Date and Time: 08/08/2019 8:41 am Signed by: MD KELSI, YUN [facility], [place] CT ABD/PEL W IVCONon 020 CT ABD/PEL W IVCON * * *Final Report* * * DATE OF EXAM: Mar 20 2019 11:49AM [facility] 0530 - CT ABD/PEL W IVCON / PROCEDURE REASON: Infection, abdomen-pelvis * * * * Physician Interpretation * * * * EXAMINATION: CT ABDOMEN AND PELVIS WITH IV CONTRAST CLINICAL HISTORY: Right-sided abdominal pain with nausea and vomiting. TECHNIQUE: CT of the abdomen and pelvis was performed using standard technique, scanning from just above the dome of the diaphragm to the symphysis pubis. MQ: CTAP_3 Contrast: IV: 145 ml of Omnipaque 300 CT Radiation dose: Integrated Dose-length product (DLP) for this visit = 503 mGy*cm. CT Dose Reduction Employed: Automated exposure control (AEC) COMPARISON: None. RESULT: Liver: No mass. Biliary: No bile duct dilation. Spleen: No mass. No splenomegaly. Pancreas: No mass or duct dilation. Adrenals: No mass. Kidneys: No hydronephrosis or hydroureter. No focal renal mass. Mild focal cortical scar left superior renal pole. GI tract: No dilation or wall thickening. A normal caliber appendix is noted. Lymph nodes: No abdominal or pelvic lymphadenopathy. Mesentery/Peritone um: No ascites or mass. Retroperitoneum: No mass. Vasculature: The celiac axis and SMA are patent. The portal vein and branches, splenic vein, SMV, and hepatic veins are patent. No abdominal aortic or iliac artery aneurysm. Pelvis: No mass, ascites or fluid collection. IUD is noted within the uterus. Bones/Soft Tissues: No acute bony abnormality. No suspicious lytic or blastic bony lesion. Lower thorax: Lung bases are grossly clear. IMPRESSION: No acute process identified within the abdomen or pelvis. Mild left renal superior pole focal cortical scar, which may related to prior pyelonephritis. Clipping Marker: BRENNA Transcribe Date/Time: Mar 20 2019 11:57A Dictated by : REAGAN THOMAS MD This examination was interpreted and the report reviewed and electronically signed by: REAGAN THOMAS MD on Mar 20 2019 12:04PM EST Normal [facility] Urinalysis Routineon 020 Appearance (U) CLEAR Normal [facility] Comment on above: Performed By: #### M URIN #### [facility] [address] [place] [address] Bacteria LM.HPF (Urine sed) [#/Area] 2+ Abnormal None [facility] Comment on above: Performed By: #### M URIN #### [place] [address] Color (U) YELLOW Normal [facility] Comment on above: Performed By: #### M URIN #### [place] [address] Ep Cells Urine 2-5 Normal 0-5 [facility] Comment on above: Performed By: #### M URIN #### [place] [address] RBC LM.HPF (Urine sed) [#/Area] 4-6 Abnormal 0-3 [facility] Comment on above: Performed By: #### M URIN #### [place] [address] WBC LM.HPF (Urine sed) [#/Area] 6-12 Abnormal 0-5 [facility] Comment on above: Performed By: #### M URIN #### [place] [address] Bilirubin Urine Negative Normal Negative [facility] Comment on above: Performed By: #### M URIN #### [place] [address] Glucose Ql (U) Negative Normal Negative [facility] Comment on above: Performed By: #### M URIN #### [address] [place] [address] Hemoglobin,Urine Negative Normal Negative [facility] Comment on above: Performed By: #### M URIN #### [place] [address] Ketone Urine Negative Normal Negative [facility] Comment on above: Performed By: #### M URIN #### [place] [address] Leukocytes Esterase Negative Normal Negative [facility] Comment on above: Performed By: #### M URIN #### [place] [address] Nitrites Urine Negative Normal Negative [facility] Comment on above: Performed By: #### M URIN #### [place] [address] pH (U) 5.5 [pH] Normal 5.0-8.0 [facility] Comment on above: Performed By: #### M URIN #### [place] [address] Protein (U) [Mass/Vol] Negative Normal Negative [facility] Comment on above: Performed By: #### M URIN #### [place] [address] Specific [place], Ur 1.020 Normal 1.005-1.030 [facility] Comment on above: Performed By: #### M URIN #### [place] [address] Urobilinogen,Ur 0.2 EU/dL Normal 0.2-1.0 [facility] Comment on above: Performed By: #### M URIN #### [place] [address] Urine HCG, Qual.on 0 Beta HCG ( test) Ql (U) Negative Normal Negative [facility] Comment on above: Performed By: #### M HCGU #### [place] [address] CBC Auto Differentialon 11-17 Absolute Baso # 0.0 10*3/uL 0 - 0.2 10*3/uL [facility] [place], [place] Absolute Neut # 4.9 10*3/uL 1.8 - 7 10*3/uL [place], [place] Basophils/100 WBC (Bld) 0.2 % 0 - 2 % [place], [place] Eosinophils (Bld) [#/Vol] 0.2 10*3/uL 0 - 0.5 1 0*3/uL [place] Eosinophils/100 WBC (Bld) 2.4 % 1 - 6 % [place] Erythrocyte distribution width (RBC) [Ratio] 14.1 % 11.5 - 14.5 % [place] Granulocytes/100 WBC (Bld) 58.5 % 40 - 80 % [place] Hematocrit (Bld) [Volume fraction] 37.9 % 35 - 47 % [place] Hemoglobin (Bld) [Mass/Vol] 12.4 g/dL 11.7 - 16 g/dL [place] Interpretation and review of laboratory results Abnormal [place] Lymphocytes (Bld) [#/Vol] 2.9 10*3/uL 1 - 4.3 1 0*3/uL [place] Lymphocytes/100 WBC (Bld) 35.1 % 20 - 40 % [place] MCH (RBC) [Entitic mass] 26.3 pg 26 - 34 pg [place] MCHC (RBC) [Mass/Vol] 32.8 % 32 - 36 % [place], [place] MCV (RBC) [Entitic vol] 80.1 fL 79 - 98 fL [place], [place] Monocytes (Bld) [#/Vol] 0.3 10*3/uL 0 - 0.8 10* 3/uL [place], [place] Monocytes/100 WBC (Bld) 3.8 % 2 - 10 % [place], [place] Platelet mean volume (Bld) [Entitic vol] 7.1 fL Low 7.4 - 10.4 fL [place], [place] Platelets (Bld) [#/Vol] 360 10*3/uL 140 - 440 10*3/uL [place] RBC (Bld) [#/Vol] 4.73 10*6/uL 3.8 - 5.2 10*6/uL [place] WBC (Bld) [#/Vol] 8.3 10*3/uL 3.6 - 10.7 10*3/uL [place] Test Performed by [facility], [address] , [place], [place] [address] [place], [place] Comprehensive Metabolic Pane marcella 11-28-2018 Albumin [Mass/Vol] 4.6 g/dL 3.5 - 5 g/dL [place], [place] ALP [Catalytic activity/Vol] 60 U/L 38 - 126 U/L [place] ALT [Catalytic activity/Vol] 18 U/L 13 - 69 U/L [place] Anion gap [Moles/Vol] 12 mmol/L [place], [place] AST [Catalytic activity/Vol] 19 U/L 15 - 46 U/L [place] Bilirubin Ql (U) 0.1 mg/dL Low 0.2 - 1.3 mg/dL [place], [place] Calcium [Mass/Vol] 9.7 mg/dL 8.4 - 10. 4 mg/dL [place] Chloride [Moles/Vol] 106 mmol/L 98 - 107 mmol/L [place] CO2 [Moles/Vol] 24 mmol/L 22 - 30 mmol/L [place] Creatinine [Mass/Vol] 0.61 mg/dL 0.52 - 1.25 mg/dL [place] EGFR IF NonAfrican [place] >60.0 >60 mL/min [place], [place] Comment on above: Source- MDRD equatio n with creatinine calibration to IDMS(NKDEP) eGFR not recommended for drug dose adjustment GFR/1.73 sq M predicted among blacks MDRD (S/P/Bld) [Vol rate/Area] mL/min/{1.73_m2} >60 mL/min [place], [place] Glucose [Mass/Vol] 86 mg/dL 70 - 100 mg/dL [place], [place] Interpretation and review of laboratory results Abnormal [place], [place] Potassium [Moles/Vol] 4.1 mmol/L 3.5 - 5.1 mmol/L [place], [place] Protein [Mass/Vol] 7.5 g/dL 6.3 - 8.2 g/dL [facility], [place] Sodium [Moles/Vol] 142 mmol/L 135 - 145 mmol/L [place], [place] Urea nitrogen [Mass/Vol] 9 mg/dL 7 - 20 mg/d L [place], [place] Test Performed by [facility], [facility] Jeannine Hernandez [address] Vital Signs Date Time Vital Sign Value Performing Clinician Facility 01-02-2024 15:27-0400 Body height 172.7 cm Yoselin Adams MD Work Phone: [facility] 01-02-2024 15:27-0400 Body mass index (BMI) [Ratio] 26.15 kg/m2 Yoselin Adams MD Work Phone: [facility] 01-02-2024 15:27-0400 Body weight 78.02 kg Yoselin Adams MD Work Phone: [facility] 01-02-2024 15:27-0400 Diastolic blood pressure 70 mm[Hg] Yoselin Adams MD Work Phone: [facility] 01-02-2024 15:27-0400 Systolic blood pressure 118 mm[Hg] Yoselin Adams MD Work Phone: [facility] 12-21-2023 10:19-0400 Body height 172.7 cm Phillip Prasad MD Work Phone: [facility] 12-21-2023 10:19-0400 Body mass index (BMI) [Ratio] 26.15 kg/m2 Phillip Prasad MD Work Phone: [facility] 12-21-2023 10:19-0400 Body weight 78.02 kg Phillip Prasad MD Work Phone: [facility] 12-21-2023 10:19-0400 Diastolic blood pressure 84 mm[Hg] Phillip Prasad MD Work Phone: [facility] 12-21-2023 10:19-0400 Heart rate 78 /min Phillip Prasad MD Work Phone: [facility] 12-21-2023 10:19-0400 Systolic blood pressure 130 mm[Hg] Phillip Prasad MD Work Phone: [facility] 11-23-2022 11:35-0400 Body height 172.7 cm Lynne Vegaser [employer] Work Phone: [facility] 11-23-2022 11:35-0400 Body mass index (BMI) [Ratio] 26.09 kg/m2 Lynne Vegaser [employer] Work Phone: [facility] 11-23-2022 11:35-0400 Body temperature 97.39 [degF] Lynne Vegaser [employer] Work Phone: [facility] 11-23-2022 11:35-0400 Body weight 77.84 kg Lynne Hale [employer] Work Phone: [facility] 11-23-2022 11:35-0400 Diastolic blood pressure 70 mm[Hg] Lynne Vegaser [employer] Work Phone: [facility] 11-23-2022 11:35-0400 Heart rate 85 /min Lynne Vegaser [employer] Work Phone: [facility] 11-23-2022 11:35-0400 SaO2% (BldA) [Mass fraction] 97 % Lynne Vegaser [employer] Work Phone: [facility] 11-23-2022 11:35-0400 Systolic blood pressure 114 mm[Hg] Lynne Hale [employer] Work Phone: [facility] 10-13-2022 12:03-0400 Body height 172.7 cm Mera trejo DPM Work Phone: [facility] 10-13-2022 12:03-0400 Body mass index (BMI) [Ratio] 26.91 kg/m2 Mera Valverdetatianna neil DPM Work Phone: [facility] 10-13-2022 12:03-0400 Body weight 80.29 kg Mera Yadavbrandt neil DPM Work Phone: [facility] 08-31-2022 15:51-0400 Body weight 84.37 kg Amanda Alcaraz MD Work Phone: [facility] 08-31-2022 15:51-0400 Diastolic blood pressure 60 mm[Hg] Amanda Alcaraz MD Work Phone: [facility] 08-31-2022 15:51-0400 Systolic blood pressure 102 mm[Hg] Amanda Alcaraz MD Work Phone: [facility] 07-27-2022 13:50-0400 Body mass index (BMI) [Ratio] 29.5 kg/m2 Krishna Hill DO Work Phone: [facility] [employer] 07-27-2022 13:50-0400 Body temperature 96.49 [degF] Krishna Hill DO Work Phone: [facility] 07-27-2022 13:50-0400 Body weight 88 kg Krishna Hill DO Work Phone: [facility] 07-27-2022 13:50-0400 Diastolic blood pressure 84 mm[Hg] Krishna Hill DO Work Phone: [facility] 07-27-2022 13:50-0400 Heart rate 80 /min Krishna Hill DO Work Phone: [facility] 07-27-2022 13:50-0400 Systolic blood pressure 127 mm[Hg] Krishna Hill DO Work Phone: [facility] 07-19-2022 09:07-0400 Body temperature 98.1 [degF] Marie Muñoz MD Work Phone: [facility] 07-19-2022 09:07-0400 Diastolic blood pressure 71 mm[Hg] Marie Muñoz MD Work Phone: [facility] 07-19-2022 09:07-0400 Heart rate 101 /min Marie Muñoz MD Work Phone: [facility] 07-19-2022 09:07-0400 Respiratory rate 20 /min Marie Muñoz MD Work Phone: [facility] 07-19-2022 09:07-0400 SaO2% (BldA) [Mass fraction] 96 % Marie Muñoz MD Work Phone: [facility] 07-19-2022 09:07-0400 Systolic blood pressure 117 mm[Hg] Marie Muñoz MD Work Phone: [facility] 07-16-2022 01:29-0400 Body height 172.7 cm Marie Muñoz MD Work Phone: [facility] 07-16-2022 01:29-0400 Body mass index (BMI) [Ratio] 32.69 kg/m2 Marie Muñoz MD Work Phone: [facility] 07-16-2022 01:29-0400 Body weight 97.52 kg Marie Muñoz MD Work Phone: [facility] 06-29-2022 15:21-0400 Body weight 97.52 kg Farida Plotjet [employer] ST[employer].CNM Work Phone: [facility] 06-29-2022 15:21-0400 Diastolic blood pressure 62 mm[Hg] Farida Plotts [employer] ST[employer].CNM Work Phone: [facility] 06-29-2022 15:21-0400 Systolic blood pressure 112 mm[Hg] Farida Plotts [employer] ST[employer].CNM Work Phone: [facility] 06-22-2022 11:48-0400 Body weight 97.52 kg Hannah Stauffer MD Work Phone: [facility] 06-22-2022 11:48-0400 Diastolic blood pressure 74 mm[Hg] Hannah Stauffer MD Work Phone: [facility] 06-22-2022 11:48-0400 Systolic blood pressure 110 mm[Hg] Hannah Stauffer MD Work Phone: [facility] 06-16-2022 14:52-0400 Body weight 97.8 kg Dominga Raymond MD Work Phone: [facility] 06-16-2022 14:52-0400 Diastolic blood pressure 68 mm[Hg] Dominga Raymond MD Work Phone: [facility] 06-16-2022 14:52-0400 Systolic blood pressure 110 mm[Hg] Dominga Raymond MD Work Phone: [facility] 06-09-2022 14:19-0400 Body weight 96.62 kg Veronica Machuca [employer] ST[employer]ER.CNM Work Phone: [facility] 06-09-2022 14:19-0400 Diastolic blood pressure 68 mm[Hg] Veronica Machuca [employer] ST[employer]ER.CNM Work Phone: [facility] 06-09-2022 14:19-0400 Systolic blood pressure 110 mm[Hg] Veronica Machuca [employer] ST[employer]ER.CNM Work Phone: [facility] 04-21-2022 14:10-0500 Body weight 90.54 kg Amanda Alcaraz MD Work Phone: [facility] 04-21-2022 14:10-0500 Diastolic blood pressure 70 mm[Hg] Amanda Alcaraz MD Work Phone: [facility] 04-21-2022 14:10-0500 Systolic blood pressure 104 mm[Hg] Amanda Alcaraz MD Work Phone: [facility] 04-10-2022 10:40-0500 Body weight 88.45 kg Beatrice Parisi DO Work Phone: [facility] 04-10-2022 10:40-0500 Diastolic blood pressure 77 mm[Hg] Beatrice Parisi DO Work Phone: [facility] 04-10-2022 10:40-0500 Heart rate 104 /min Beatrice Parisi DO Work Phone: [facility] 04-10-2022 10:40-0500 SaO2% (BldA) [Mass fraction] 97 % Beatrice Parisi DO Work Phone: [facility] 04-10-2022 10:40-0500 Systolic blood pressure 115 mm[Hg] Beatrice Parisi DO Work Phone: [facility] 02-27-2022 14:01-0500 Body weight 86.82 kg Amanda Alcaraz MD Work Phone: [facility] 02-27-2022 14:01-0500 Diastolic blood pressure 72 mm[Hg] Amanda Alcaraz MD Work Phone: [facility] 02-27-2022 14:01-0500 Systolic blood pressure 118 mm[Hg] Amanda Alcaraz MD Work Phone: [facility] 02-27-2022 10:11-0500 Body height 172.7 cm Cintia Ferris MD Work Phone: [facility] 02-27-2022 10:11-0500 Body weight 85.73 kg Cintia Ferris MD Work Phone: [facility] 12-29-2021 15:59-0400 Body weight 80.74 kg Amanda Alcaraz MD Work Phone: [facility] 12-29-2021 15:59-0400 Diastolic blood pressure 62 mm[Hg] Amanda Alcaraz MD Work Phone: [facility] 12-29-2021 15:59-0400 Systolic blood pressure 102 mm[Hg] Amanda Alcaraz MD Work Phone: [facility] 11-30-2021 11:52-0400 Body height 172.7 cm Amanda Alcaraz MD Work Phone: [facility] 11-30-2021 11:52-0400 Body weight 79.83 kg Amanda Alcaraz MD Work Phone: [facility] 11-30-2021 11:52-0400 Diastolic blood pressure 70 mm[Hg] Amanda Alcaraz MD Work Phone: [facility] 11-30-2021 11:52-0400 Systolic blood pressure 112 mm[Hg] Amanda Alcaraz MD Work Phone: [facility] 06-02-2021 17:45-0400 Diastolic blood pressure 82 mm[Hg] Lico Wright MD Work Phone: [facility] 06-02-2021 17:45-0400 Heart rate 66 /min Lico Wright MD Work Phone: [facility] 06-02-2021 17:45-0400 Respiratory rate 16 /min Lico Wright MD Work Phone: [facility] 06-02-2021 17:45-0400 SaO2% (BldA) [Mass fraction] 99 % Lico Wright MD Work Phone: [facility] 06-02-2021 17:45-0400 Systolic blood pressure 121 mm[Hg] Lico Wright MD Work Phone: [facility] 06-02-2021 16:35-0400 Body height 172.7 cm Lico Wright MD Work Phone: [facility] 06-02-2021 16:35-0400 Body mass index (BMI) [Ratio] 26.15 kg/m2 Lico Wright MD Work Phone: [facility] 06-02-2021 16:35-0400 Body temperature 98.8 [degF] Lico Wright MD Work Phone: [facility] 06-02-2021 16:35-0400 Body weight 78.02 kg Lico Wright MD Work Phone: [facility] 04-20-2021 14:10-0500 Diastolic blood pressure 74 mm[Hg] Willam Benjamin MD Work Phone: [facility] 04-20-2021 14:10-0500 Heart rate 60 /min Willam Benjamin MD Work Phone: [facility] 04-20-2021 14:10-0500 Respiratory rate 12 /min Willam Benjamin MD Work Phone: [facility] 04-20-2021 14:10-0500 SaO2% (BldA) [Mass fraction] 100 % Willam Benjamin MD Work Phone: [facility] 04-20-2021 14:10-0500 Systolic blood pressure 110 mm[Hg] Willam Benjamin MD Work Phone: [facility] 04-20-2021 13:41-0500 Body temperature 98.01 [degF] Willam Benjamin MD Work Phone: [facility] 04-20-2021 11:51-0500 Body height 172.7 cm Willam Benjamin MD Work Phone: [facility] 04-20-2021 11:51-0500 Body mass index (BMI) [Ratio] 26.61 kg/m2 Willam Benjamin MD Work Phone: [facility] 04-20-2021 11:51-0500 Body weight 79.38 kg Willam Benjamin MD Work Phone: [facility] 03-28-2020 13:43-0500 Body Temperature 98.2 [degF] [facility] [place] 03-28-2020 13:43-0500 BP Diastolic 64 mm[Hg] [facility] , [place] 03-28-2020 13:43-0500 BP Systolic 129 mm[Hg] [facility] , [place] 03-28-2020 13:43-0500 Pulse (Heart Rate) 86 /min [facility], [place] 03-28-2020 13:43-0500 Pulse Oximetry 100 % [facility] , [place] 03-28-2020 13:43-0500 Respiratory Rate 12 /min [facility], [place] 03-27-2020 13:17-0500 BMI (Body Mass Index) 25.09 kg/m2 Yoselin Archuleta [facility], [place] 03-27-2020 13:17-0500 Body Temperature 98.4 [degF] [facility] [place] 03-27-2020 13:17-0500 Body weight 74.84 kg Yoselin Shannon [facility], [place] 03-27-2020 13:17-0500 BP Diastolic 92 mm[Hg] [facility] [place] 03-27-2020 13:17-0500 BP Systolic 122 mm[Hg] [facility] [place] 03-27-2020 13:17-0500 Height 172.7 cm Yoselin Shannon [facility] [place] 03-27-2020 13:17-0500 Pulse (Heart Rate) 96 /min Yoselin Shannon [facility], [place] 03-27-2020 13:17-0500 Pulse Oximetry 98 % [facility] [place] 03-27-2020 13:17-0500 Respiratory Rate 14 /min [facility] [place] Encounters Encounter Date Encounter Type Care Provider Facility Start: 01-11-2024 End: 01-11-2024 Subsequent hospital visit by physician Naomy Hidalgo [facility] Work Phone: [facility] Start: 01-09-2024 End: 01-09-2024 Telephone encounter Sheila Swartz DO Work Phone: [facility] Start: 01-08-2024 End: 01-08-2024 Emergency department patient visit CHAGO GALLEGO Facility:[facility] Start: 01-08-2024 End: 01-08-2024 ambulatory SHEILA MAXIME Facility:[facility] Start: 01-08-2024 End: 01-08-2024 Patient encounter procedure Sheila Maxime DO Work Phone: [facility] Comment on above: Severe episode of re current major depressive disorder, 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); PTSD (post-traumatic stress disorder); Insomnia due to mental condition Start: 01-04-2024 End: 01-14-2024 ambulatory Hannah Balbuena RN [facility] Clinical Communication Start: 01-04-2024 End: 01-14-2024 Patient encounter procedure Hannah Balbuena RN [facility] Clinical Communication Start: 01-03-2024 End: 01-03-2024 Telephone encounter Phillip Prasad MD Work Phone: [facility] Start: 01-02-2024 End: 01-02-2024 ambulatory YOSELIN ADAMS [facility] Start: 01-02-2024 End: 01-02-2024 Office outpatient visit 15 minutes Yoselin Adams MD Work Phone: [facility] Comment on above: Vulvar itching (Prim kate Dx); Pelvic pain; Dyspareunia in female Start: 01-01-2024 End: 01-01-2024 ambulatory Yissel Smith RN [facility] Clinical Communication Start: 01-01-2024 End: 01-01-2024 Patient encounter procedure Yissel Smith RN [facility] Clinical Communication Start: 01-01-2024 End: 01-03-2024 Telephone encounter Phillip Prasad MD Work Phone: [facility] Comment on above: Orders Start: 12-21-2023 End: 12-21-2023 Office outpatient new 30 minutes Phillip Prasad MD Work Phone: [facility] Comment on above: Abnormal uterine ble eding (AUB) (Primary Dx); Pelvic pain; Family history of malignant neoplasm of digestive organ Start: 12-21-2023 End: 12-21-2023 ambulatory PHILLIP PRASAD [facility] Start: 11-21-2023 End: 11-21-2023 Telephone encounter Uma Kelsey MD Work Phone: [facility] Comment on above: 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 (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 ) Start: 11-08-2023 End: 11-08-2023 ambulatory FAY CARTER [facility] Start: 11-08-2023 End: 11-08-2023 Office outpatient new 45 minutes Fay Carter PA-C Work Phone: [facility] Comment on above: Facial skin lesion; Skin tags, multiple acquired; Acne vulgaris; Multiple benign melanocytic nevi of both upper extremities, both lower extremities, and trunk Start: 11-07-2023 End: 11-20-2023 ambulatory Marion Alvarado RN [facility] Clinical Communication Start: 11-07-2023 End: 11-20-2023 Patient encounter procedure Marion Alvarado RN [facility] Clinical Communication Start: 09-19-2023 End: 09-19-2023 ambulatory Sharee Bhakta RN [facility] Clinical Communication Start: 09-19-2023 End: 09-19-2023 Patient encounter procedure Sharee Bhakta RN [facility] Clinical Communication Start: 08-10-2023 ambulatory [facility] [place] Start: 08-10-2023 Patient encounter procedure Neetufreda Ferreira MA [facility] [place] Comment on above: Population Health Na vigation Outreach (Off-boarding Dr. Parisi ) Start: 07-26-2023 Orders Only Chago Gallego DO Work Phone: [facility] Comment on above: Facial skin lesion ( Primary Dx) Start: 07-24-2023 Orders Only Chago Gallego DO Work Phone: [facility] Comment on above: Hemorrhoids, unspeci fied hemorrhoid type (Primary Dx) Start: 05-08-2023 End: 05-08-2023 ambulatory UMA KELSEY Facility:[facility] Start: 05-08-2023 End: 05-08-2023 Patient encounter procedure Uma Kelsey MD Work Phone: [facility] Comment on above: PTSD (post-traumatic stress disorder) (Primary Dx); Encounter for completion of form with patient; Moderate episode of recurrent major depressive disorder (HCC); Insomnia due to mental condition; Nightmares associated with chronic post-traumatic stress disorder Start: 04-19-2023 End: 04-19-2023 [facility] Start: 03-22-2023 Emergency department patient visit Rita Clark Work Phone: [facility] [employer] Comment on above: Encounter for prescr iption of emergency contraception (Primary Dx) Start: 02-22-2023 End: 02-22-2023 Subsequent hospital visit by physician Lynne Hale APRN - YANELY Work Phone: [facility] Comment on above: Migraine without aur a and without status migrainosus, not intractable Start: 02-22-2023 End: 02-22-[address] [facility] Start: 02-14-2023 End: 02-14-2023 Office outpatient visit 25 minutes Lynne Hale APRN - YANELY Work Phone: [facility] Comment on above: Migraine without aur a and without status migrainosus, not intractable (Primary Dx) Start: 02-14-2023 End: 02-14-[address] [facility] Start: 12-08-2022 End: 12-08-2022 Patient encounter procedure Uma Kelsey MD Work Phone: [facility] Comment on above: Moderate episode of recurrent major depressive disorder (HCC) (Primary Dx); PTSD (post-traumatic stress disorder); Insomnia due to mental condition Start: 11-23-2022 End: 11-23-2022 Initial preventive medicine new pt age 18-39yrs Lynne Hale APRN - [employer] Work Phone: [facility] Comment on above: Routine general medi eric examination at a health care facility (Primary Dx); Encounter to establish care; Migraine without aura and without status migrainosus, not intractable; Iron deficiency anemia, unspecified iron deficiency anemia type; Abdominal bloating; Screening for cardiovascular condition; Screening for lipid disorders Start: 11-23-2022 End: 11-23-2022 Patient encounter status Lynne Hale APRN - [employer] [facility] Work Phone: Start: 10-20-2022 End: 10-20-2022 Office outpatient visit 15 minutes Beatrice Parisi DO Work Phone: Family Medicine Comment on above: Migraine without aur a and without status migrainosus, not intractable (Primary Dx); Lactating mother Start: 10-13-2022 End: 10-13-2022 Office outpatient new 30 minutes Mera Lewis DPM Work Phone: [facility] Comment on above: Injury of left foot, initial encounter; Closed displaced fracture of phalanx of toe of left foot, unspecified toe, initial encounter Start: 10-12-2022 ambulatory Amanda Rodriguez Work Phone: OB/Gynecology Comment on above: Florajen Start: 10-09-2022 Telephone encounter Amanda caputo MD Work Phone: OB/Gynecology Comment on above: Insurance Authorizat ion Start: 09-06-2022 ambulatory Amanda Rodriguez Work Phone: OB/Gynecology Comment on above: Prescription and que stion Start: 09-01-2022 ambulatory Amanda Rodriguez Work Phone: OB/Gynecology Comment on above: Rephersh gel Start: 08-31-2022 End: 08-31-2022 Patient encounter procedure Amanda Alcaraz MD Work Phone: OB/Gynecology Comment on above: care and examination (Primary Dx); Vaginal discharge Start: 07-27-2022 End: 07-27-2022 Office outpatient visit 15 minutes Krishna Bran DO Work Phone: [facility] Comment on above: Incisional pain (Amina james Dx) Start: 07-19-2022 Telephone encounter Clover nunez DO Work Phone: [facility] [employer] Start: 07-18-2022 Telephone encounter Marya alegre MD Work Phone: OB/Gynecology Comment on above: Ob Delivery Note (/) Start: 07-16-2022 End: 07-19-2022 Evaluation and management of inpatient Marie Muñoz MD Work Phone: [facility] Comment on above: 42 weeks gestation o f (Primary Dx); Status post section Start: 07-10-2022 Telephone encounter Beatrice Parisi DO Work Phone: Family Medicine Comment on above: Appointment Start: 07-04-2022 Telephone encounter Marya alegre MD Work Phone: OB/Gynecology Comment on above: Section Start: 06-29-2022 End: 06-29-2022 Patient encounter procedure Farida Malin [employer] STAKER.CNM Work Phone: OB/Gynecology Comment on above: Short interval betwe en pregnancies affecting , antepartum (Primary Dx); 39 weeks gestation of Start: 06-22-2022 Telephone encounter Hannah Stauffer MD Work Phone: OB/Gynecology Comment on above: Care Start: 06-22-2022 End: 06-22-2022 Patient encounter procedure Hannah Stauffer MD Work Phone: OB/Gynecology Comment on above: 38 weeks gestation o f (Primary Dx); Short interval between pregnancies affecting , antepartum; Supervision of other normal , antepartum Start: 06-16-2022 End: 06-16-2022 Patient encounter procedure Dominga Raymond MD Work Phone: OB/Gynecology Comment on above: Short interval betwe en pregnancies affecting , antepartum (Primary Dx); Supervision of other normal , antepartum; 37 weeks gestation of Start: 06-09-2022 End: 06-09-2022 Patient encounter procedure Veronica Machuca LINE STAKER.CNM Work Phone: OB/Gynecology Comment on above: 36 weeks gestation o f (Primary Dx); Urinary urgency Start: 04-21-2022 ambulatory Amanda Rodriguez Work Phone: OB/Gynecology Comment on above: Urine Start: 04-21-2022 End: 04-21-2022 Patient encounter procedure Amanda Alcaraz MD Work Phone: OB/Gynecology Comment on above: 29 weeks gestation o f (Primary Dx); Encounter for supervision of other normal in first trimester Start: 04-10-2022 Telephone encounter Beatrice Parisi DO Work Phone: Family Medicine Comment on above: Medication Problem Start: 04-10-2022 End: 04-10-2022 Office outpatient new 30 minutes Beatrice Parisi DO Work Phone: Family Medicine Comment on above: Depression, unspecif ied depression type (Primary Dx); External hemorrhoids Start: 04-03-2022 ambulatory Amanda Rodriguez Work Phone: OB/Gynecology Comment on above: Glucose testing Start: 02-27-2022 Telephone encounter Amanda caputo MD Work Phone: OB/Gynecology Comment on above: Question (OB Questio n) Start: 02-27-2022 End: 02-27-2022 Patient encounter procedure Cintia Ferris MD Work Phone: Maternal Medicine Comment on above: Encounter for anatomic survey (Primary Dx); Suspected anomaly not found; 21 weeks gestation of 21 weeks gestation o f (Primary Dx); Encounter for supervision of other normal in first trimester; Malaise and fatigue; Hair loss Start: 02-20-2022 Telephone encounter Hannah Stauffer MD Work Phone: OB/Gynecology Comment on above: Patient Question Start: 02-07-2022 E-mail encounter fro m caregiver Danielle Gibbs [employer] ST[employer]ER.[employer] Work Phone: [facility] Start: 02-07-2022 Patient encounter procedure Danielle Gibbs LINE STAKER.[employer] ATT[employer]ER Work Phone: Internal Medicine Comment on above: Appointment Request Start: 01-31-2022 End: 01-31-2022 Patient encounter procedure Marya Chester MD Work Phone: OB/Gynecology Comment on above: APPOINTMENT CANCELLE D (Primary Dx) Start: 01-06-2022 ambulatory Miguelina Castro MD Work Phone: Maternal Medicine Comment on above: Your [id number] gene tic results Start: 01-06-2022 E-mail encounter fro m caregiver Miguelina Castro MD Work Phone: [facility] Start: 01-06-2022 Telephone encounter Miguelina baez MD Work Phone: Maternal Medicine Comment on above: NIPT results Start: 12-30-2021 Telephone encounter Miguelina baez MD Work Phone: Maternal Medicine Comment on above: First Seq Results Start: 12-29-2021 End: 12-29-2021 Patient encounter procedure Miguelina Castro MD Work Phone: Maternal Medicine Comment on above: Encounter for (NT) n uchal translucency scan (Primary Dx); 13 weeks gestation of Encounter for superv ision of normal in first trimester, unspecified (Primary Dx) Encounter for superv ision of other normal in first trimester (Primary Dx); 13 weeks gestation of ; Encounter for screening for nuchal translucency; Headaches Start: 12-20-2021 Telephone encounter Marya alegre MD Work Phone: OB/Gynecology Comment on above: Question (OB Questio n) Start: 12-01-2021 Telephone encounter Maria D ( Rn) Mateo [facility] Obstetrics/Gynecology Comment on above: Valve Pipe Irrigator - O ther (PRAF) Start: 11-30-2021 End: 11-30-2021 Patient encounter procedure Amanda Alcaraz MD Work Phone: OB/Gynecology Comment on above: Encounter for superv ision of other normal in first trimester (Primary Dx); Supervision of other normal , antepartum Start: 11-27-2021 ambulatory Amanda Rodriguez Work Phone: OB/Gynecology Comment on above: Can I get a hernia w hile Start: 11-24-2021 End: 10-20-2022 Patient requested procedure Amanda Alcaraz MD Work Phone: [facility] Work Phone: Start: 11-15-2021 Telephone encounter Marya alegre MD Work Phone: OB/Gynecology Comment on above: Early OB pain Start: 11-01-2021 Telephone encounter Amanda caputo MD Work Phone: OB/Gynecology Comment on above: Future Appointment Start: 06-02-2021 End: 06-02-2021 Emergency department patient visit Lico Wright MD Work Phone: [facility] ED Comment on above: Cluster headache, no t intractable, unspecified chronicity pattern (Primary Dx) Start: 04-20-2021 End: 04-20-2021 Subsequent hospital visit by physician Willam Benjamin MD Work Phone: [facility] General Surgery Comment on above: Arrived Start: 06-18-2020 End: 06-18-2020 Subsequent hospital visit by physician [facility]verde [facility] Start: 05-17-2020 End: 05-17-2020 Subsequent hospital visit by physician Yoselin Shannon Work Phone: [facility] Laboratory Comment on above: Abdominal discomfort ; Multiple food allergies Start: 05-07-2020 End: 05-07-2020 Subsequent hospital visit by physician Morro Landaverde Work Phone: [facility] Radiology Comment on above: Closed displaced fra cture of navicular bone of left foot with routine healing, subsequent encounter Start: 04-06-2020 End: 04-06-2020 Subsequent hospital visit by physician [facility]: Arrived Start: 03-28-2020 End: 03-28-2020 Emergency department patient visit Valeriano Hamilton Work Phone: [facility] ED Comment on above: Closed displaced fra cture of navicular bone of left foot with routine healing, subsequent encounter (Primary Dx) Start: 03-27-2020 End: 03-27-2020 Emergency department patient visit Yoselin Shannon [facility] ED Comment on above: Closed avulsion frac ture of navicular bone of left foot, initial encounter (Primary Dx) Start: 08-08-2019 End: 08-08-2019 Subsequent hospital visit by physician Zack Hilton Breast Ultrasound Room 1 [facility] Comment on above: Arrived Start: 11-28-2018 End: 11-28-2018 Subsequent hospital visit by physician Yoselin Shannon Work Phone: [facility] Comment on above: Urinary frequency Start: 12-05-2017 Patient encounter MORRO Pride [id number] Procedures Date Procedure Procedure Detail Performing Clinician Start: 12-21-2023 Urine test visual color cmprsn aline Prasad MD Work Phone: Start: 02-22-2023 Mri brain brain stem w/o contrast material Lynne Hale LINE STAKER - [employer] ATTACHER Work Phone: Start: 10-27-2022 Adult depression screening assessment Fay Carter PA-C Work Phone: Start: 08-31-2022 BACTERIAL VAGINOSIS AMPLIFICATION Amanda Alcaraz MD Work Phone: Start: 08-31-2022 Iadna trichomonas vaginalis amplified probe tech Amanda Alcaraz MD Work Phone: Start: 07-18-2022 Urinalysis complete panel - Urine Rita Clark DO Work Phone: Start: 07-18-2022 Urnls dip stick/tabl et reagent auto microscopy Rita Clark DO Work Phone: Start: 07-18-2022 PULSE OXIMETRY, SPOT Geraldo Arceo Connor LINE STAKER - INTERNET MARKETING DIRECTOR Work Phone: Start: 07-17-2022 PULSE OXIMETRY, SPOT Geraldo geiger L Connor LINE STAKER - INTERNET MARKETING DIRECTOR Work Phone: Start: 07-16-2022 PULSE OXIMETRY, SPOT Geraldo geiger L Connor LINE STAKER - INTERNET MARKETING DIRECTOR Work Phone: Start: 07-16-2022 PULSE OXIMETRY, SPOT Geraldo geiger L Connor LINE STAKER - INTERNET MARKETING DIRECTOR Work Phone: Start: 07-16-2022 PULSE OXIMETRY, SPOT Geraldo geiger L Connor LINE STAKER - INTERNET MARKETING DIRECTOR Work Phone: Start: 07-16-2022 Blood count complete automated Melissa sambaash Work Phone: Start: 07-16-2022 Blood typing serolog ic abo DancingAnchovy DO Work Phone: Start: 06-22-2022 URINE OB DIP B/O Xena Stauffer MD Work Phone: Start: 06-16-2022 URINE OB DIP B/O Dominga Raymond MD Work Phone: Start: 06-09-2022 Culture bacterial quanttative colony count urine Veronica Machuca APRN.CNM Work Phone: Start: 04-21-2022 URINE OB DIP B/O Amanda pelayo MD Work Phone: Start: 02-27-2022 URINE OB DIP B/O Amanda pelayo MD Work Phone: Start: 02-27-2022 Us preg uterus after 1st trimest 1/ gestation Amanda Alcaraz MD Work Phone: Start: 12-29-2021 URINE OB DIP B/O Amnada pelayo MD Work Phone: Start: 12-29-2021 Us nuchal translucency 1st gestation Amanda Alcaraz MD Work Phone: Start: 06-02-2021 Ct head/brain w/o contrast material Lico Wright MD Work Phone: Start: 06-02-2021 Urine test visual color cmprsn meths Lico Wright MD Work Phone: Start: 06-02-2021 Basic metabolic pane l calcium total Lico Wright MD Work Phone: Start: 04-20-2021 Urine test visual color cmprsn meths Shiloh Trujillo MD Work Phone: Start: 05-17-2020 Blood count complete auto&auto difrntl wbc Yoselin Mirtha Work Phone: Start: 05-17-2020 Comprehensive metabo lic panel Yoselin Shannon Work Phone: Start: 04-06-2020 Ct lower extremity w /o contrast material Morro Briscoe Gabi Work Phone: Start: 03-27-2020 Radex ankle complete minimum 3 views Reagan Russ Work Phone: Start: 03-27-2020 Radex foot complete minimum 3 views Reagan Russ Work Phone: Start: 08-08-2019 Us breast uni real t steph with image limited Yoselin Spence Jermain Work Phone: Start: 03-20-2019 Adult depression screening assessment Amanda Alcaraz MD Work Phone: Start: 02-06-2019 Microscopic observat ion [Identifier] in Cervix by Cyto stain Willam Benjamin MD Work Phone: Start: 11-28-2018 Blood count complete auto&auto difrntl wbc Yoselin Judgegreg Work Phone: Start: 11-28-2018 Comprehensive metabo lic panel Yoselin Shannon Work Phone: section Diann W Me hl DO H/O: section Status pos t section Marie Muñoz MD Work Phone: Plan of Treatment Date Care Activity Detail Author Start: 08-21-2067 RSV Immunization for Adults (1 - 1-dose 75+ series) RSV Immunization for Adults (1 - 1-dose 75+ series) [facility] Start: 2052 RSV Immunization age d 60 or older (1 - 1-dose 60+ series) RSV Immunization aged 60 or older (1 - 1-dose 60+ series) [facility] Start: 2042 Zoster Vaccines (1 o f 2) Zoster Vaccines (1 of 2) [facility] Start: 07-16-2032 DTaP/Tdap/Td Vaccine s (3 - Td or Tdap) DTaP/Tdap/Td Vaccines (3 - Td or Tdap) [facility] Start: 03-21-2026 PAP TESTING PAP TESTING [facility] Start: 03-21-2026 Screening for malign ant neoplasm of cervix Pap Testing [facility] Start: 10-17-2025 DTaP/Tdap/Td vaccine (2 - Td or Tdap) DTaP/Tdap/Td vaccine (2 - Td or Tdap) [facility] Start: 10-17-2025 DTaP/Tdap/Td vaccine (2 - Td) DTaP/Tdap/Td vaccine (2 - Td) [place] Start: 10-17-2025 DTaP/Tdap/Td Vaccine s (2 - Td or Tdap) DTaP/Tdap/Td Vaccines (2 - Td or Tdap) [facility] Start: 10-17-2025 Urine microalbumin profile [facility] Start: 06-05-2024 End: 06-05-2024 Patient encounter procedure [facility] Start: 03-21-2024 PAP TESTING PAP TESTING [facility] Start: 03-21-2024 Screening for malign ant neoplasm of cervix Cervical Cancer Screening [facility] Start: 02-06-2024 End: 02-06-2024 Patient encounter procedure 02/06/2024 9:15 AM EST Office Visit [facility] Obstetrics and Gynecology [facility] [address] [place] [phone] Phillip Prasad MD [address] [facility] [address] [place], [place] [phone] [facility] Start: 01-23-2024 End: 01-23-2024 Patient encounter procedure 01/23/2024 11:00 AM EST Office Visit [facility] 1 [place] [address] Sheila Swartz DO 1 [place] [address] Follow-up [facility] Comment on above: Follow-up Start: 01-18-2024 End: 01-18-2024 Patient encounter procedure 01/18/2024 9:00 AM EDT Appointment [facility] Behavioral Medicine 1 [place] [address] [facility] [place] [place] [address] Assessment [facility] Comment on above: Assessment Start: 01-11-2024 End: 01-11-2024 Patient encounter procedure 01/11/2024 9:00 AM EDT Appointment [facility] [place] [address] Naomy Hidalgo [facility] [address] [facility] [place] [address] Assessment [facility] Comment on above: Assessment Start: 01-08-2024 End: 01-08-2024 Patient encounter procedure 01/08/2024 8:00 AM EDT Office Visit [facility] [place] [address] Sheila Swartz DO [address] [facility] [place] [id number] transfer of care from Dr. Kelsey [facility] Comment on above: transfer of care [facility] Dr. Kelsey Start: 01-03-2024 End: 01-02-2025 US Pelvis transvaginal US pelvis transvaginal Imaging Routine Pelvic pain Expected: 01/03/2024, Expires: 01/02/2025 [facility] Work Phone: Comment on above: Expected: 01/03/2024 , Expires: 01/02/2025 Start: 01-02-2024 End: 01-02-2024 Patient encounter procedure 01/02/2024 3:15 PM EDT Office Visit [facility] Obstetrics [facility]necology [place] [address] [place] [address] Yoselin Adams MD [address] [facility] 6 [place] [address] [facility]etrics [facility] - [place] Start: 12-21-2023 End: 12-20-2024 17-Hydroxyprogesterone [facility] Comment on above: Expected: 12/21/2023 (Approximate), Expires: 12/20/2024 Start: 12-21-2023 End: 12-20-2024 DHEA-sulfate [facility] Comment on above: Expected: 12/21/2023 (Approximate), Expires: 12/20/2024 Start: 12-21-2023 End: 12-20-2024 Testo,Free/Total (Sendout) [facility] Comment on above: Expected: 12/21/2023 (Approximate), Expires: 12/20/2024 Start: 12-21-2023 End: 12-21-2023 Patient encounter procedure 12/21/2023 10:15 AM EDT Office Visit [facility] [address] [place] [phone] Phillip Prasad MD [address] [place], [place] [phone] [facility] Start: 11-26-2023 End: 11-26-2023 Patient encounter procedure [facility] Start: 11-18-2023 COVID-19 Vaccine ( season) COVID-19 Vaccine ( season) [facility] Start: 11-18-2023 Covid-19 Vaccine ( season) Covid-19 Vaccine ( season) [facility] Start: 11-18-2023 Influenza vaccination S [facility] Start: 11-09-2023 End: 11-09-2023 Patient encounter procedure 11/09/2023 9:45 AM EDT Office Visit [facility] [address] [place] [address] Phillip Prasad MD [address] [place], [place] [phone] [facility] Start: 10-28-2023 Depression Screening Depression Scre ening [facility] Start: 10-24-2023 End: 10-24-2023 Patient encounter procedure 10/24/2023 1:40 PM EDT Office Visit [facility] Dermatology [address] [place] [phone] Ciara Ugarte PA-C [address] [place] [address] [facility] Start: 2023 End: 2023 Patient encounter procedure 2023 9:40 AM EDT Office Visit [facility] Derm[facility] [address] [place] [phone] Ciara Ugarte PA-C [address] [facility] [address] [facility] [address] [place] [address] [facility] Start: 04-29-2023 Depression Monitoring Depression [facility] Start: 04-29-2023 Depresssion Monitoring Depresssion M onitoring [facility] Start: 04-19-2023 End: 04-19-2023 Patient encounter procedure 04/19/2023 2:20 PM EST Office Visit [facility] Neuroscience [address] [place] [phone] Venancio Richards MD [address] [facility] [address] [place] [address] [facility] Start: 03-20-2023 End: 03-20-2023 Telemedicine consultation with patient 03/20/2023 1:40 PM EST Telemedicine [facility] [address] [place] [phone] Lynne Hale APRN - YANELY [address] [place] [address] [facility] Start: 03-19-2023 Depression Assessment Depression Ass [facility] Start: 02-22-2023 End: 02-22-2023 Patient encounter procedure 02/22/2023 2:30 PM EST Appointment [facility] MRI [address] [place] [address] Lynne Hale, LINE STAKER - [employer] ATTACHER [address] [facility] [address] [place] [address] [facility] MRI Start: 02-14-2023 End: 02-15-2024 MR Brain WO contrast MR brain wo contrast Imaging Routine Migraine without aura and without status migrainosus, not intractable Expected: 02/14/2023, Expires: 02/15/2024 [employer] Work Phone: Comment on above: Expected: 02/14/2023 , Expires: 02/15/2024 Start: 11-23-2022 End: 11-24-2023 CBC panel - Blood by Automated count CBC Lab Routine Iron deficiency anemia, unspecified iron deficiency anemia type Expected: 11/23/2022 (Approximate), Expires: 11/24/2023 [employer] Comment on above: Expected: 11/23/2022 (Approximate), Expires: 11/24/2023 Start: 11-23-2022 End: 11-24-2023 Celiac reflex panel Celiac reflex panel Lab Routine Abdominal bloating Expected: 11/23/2022 (Approximate), Expires: 11/24/2023 [employer] Work Phone: Comment on above: Expected: 11/23/2022 (Approximate), Expires: 11/24/2023 Start: 11-23-2022 End: 11-24-2023 Comprehensive metabolic 1998 panel - Serum or Plasma Comprehensive metabolic panel Lab Routine Screening for cardiovascular condition Expected: 11/23/2022 (Approximate), Expires: 11/24/2023 [employer] Comment on above: Expected: 11/23/2022 (Approximate), Expires: 11/24/2023 Start: 11-23-2022 End: 11-24-2023 Ferritin [Mass/volume] in Serum or Plasma Ferritin Lab Routine Iron deficiency anemia, unspecified iron deficiency anemia type Expected: 11/23/2022 (Approximate), Expires: 11/24/2023 [facility] Comment on above: Expected: 11/23/2022 (Approximate), Expires: 11/24/2023 Start: 11-23-2022 End: 11-24-2023 Iron and Iron binding capacity panel - Serum or Plasma Iron and TIBC Lab Routine Iron deficiency anemia, unspecified iron deficiency anemia type Expected: 11/23/2022 (Approximate), Expires: 11/24/2023 [facility] Comment on above: Expected: 11/23/2022 (Approximate), Expires: 11/24/2023 Start: 11-23-2022 End: 11-24-2023 Lipid 1996 panel - Serum or Plasma Lipid panel Lab Routine Screening for lipid disorders Expected: 11/23/2022 (Approximate), Expires: 11/24/2023 [facility] Comment on above: Expected: 11/23/2022 (Approximate), Expires: 11/24/2023 Start: 11-17-2022 COVID-19 Vaccine ( season) COVID-19 Vaccine () [facility] Start: 11-17-2022 Influenza vaccination [facility] Start: 08-23-2022 End: 08-23-2022 Patient encounter procedure 08/23/2022 Office Visit Obstetrics and Gynecology Sola Sanchez MD [address] [place] [address] [facility] Start: 2022 HPV TESTING HPV TESTING [facility] Start: 2022 Screening for malign ant neoplasm of cervix [facility] Start: 08-13-2022 Varicella vaccination Varicell a Vaccines (1 of 2 - 2-dose childhood series) [facility] Start: 04-30-2022 Diabetes mellitus screening Diabetes Screening [facility] Start: 04-24-2022 End: 06-24-2022 Bacteria identified in Urine by Culture URINE CULTURE Microbiology Routine Cloudy urine 29 weeks gestation of Expected: 04/24/2022, Expires: 06/24/2022 [facility] Work Phone: Comment on above: Expected: 04/24/2022 , Expires: 06/24/2022 Start: 04-24-2022 End: 06-24-2022 Urinalysis complete panel - Urine URINALYSIS, WITH MICROSCOPIC Lab Routine Cloudy urine 29 weeks gestation of Expected: 04/24/2022, Expires: 06/24/2022 [facility] Work Phone: Comment on above: Expected: 04/24/2022 , Expires: 06/24/2022 Start: 04-03-2022 End: 06-03-2022 CBC panel - Blood by Automated count CBC Lab Routine 26 weeks gestation of Expected: 04/03/2022, Expires: 06/03/2022 [facility] Work Phone: Comment on above: Expected: 04/03/2022 , Expires: 06/03/2022 Start: 04-03-2022 End: 06-03-2022 GEST GLUC SCREEN, 1-HR, 50 GM, NON-FASTING GEST GLUC SCREEN, 1-HR, 50 GM, NON-FASTING Lab Routine 26 weeks gestation of Expected: 04/03/2022, Expires: 06/03/2022 [facility] Work Phone: Comment on above: Expected: 04/03/2022 , Expires: 06/03/2022 Start: 04-03-2022 End: 06-03-2022 SYPHILIS TOTAL W/REFLEX SYPHILIS TOTAL W/REFLEX Lab Routine 26 weeks gestation of Expected: 04/03/2022, Expires: 06/03/2022 [facility] Work Phone: Comment on above: Expected: 04/03/2022 , Expires: 06/03/2022 Start: 03-19-2022 DEPRESSION ASSESSMENT DEPRESSION ASS ESSMENT [facility] Start: 02-27-2022 End: 04-29-2022 Thyrotropin [Units/volume] in Serum or Plasma [facility] Work Phone: Comment on above: Expected: 02/27/2022 , Expires: 04/29/2022 Start: 02-27-2022 End: 04-29-2022 Thyroxine (T4) free [Mass/volume] in Serum or Plasma [facility] Work Phone: Comment on above: Expected: 02/27/2022 , Expires: 04/29/2022 Start: 02-06-2022 Screening for malign ant neoplasm of cervix [facility] Start: 12-29-2021 End: 02-28-2022 Chromosome 21 trisomy [Presence] in Blood or Tissue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 She is ambulating well. Flatus absent. Bowel movement absent. Voiding without difficulty. She is tolerating solids. Pain is controlled yes. Vital Signs: Vitals: 07/16/22 1341 07/16/22 1607 07/16/22 2014 07/16/22 2304 BP: 126/77 123/85 132/78 122/84 BP Location: Left arm Patient Position: Sitting Pulse: 103 98 95 99 Resp: 20 16 16 16 Temp: 37.1 C (98.8 F) 37 C (98.6 F) 36.7 C (98 F) 36.6 C (97.8 F) TempSrc: Temporal Temporal Temporal Temporal SpO2: 96% 97% 97% 96% Weight: Height: Urine Input & Output last 24hrs: Intake/Output Summary (Last 24 hours) at 07/17/2022 0542 Last data filed at 07/16/2022 1900 Gross per 24 hour Intake -- Output 2900 ml Net -2900 ml Physical Exam: GENERAL APPEARANCE: alert, well appearing, in no apparent distress ABDOMEN : benign non-tender, without masses or organomegaly palpable EXTREMITIES: no redness or tenderness in the calves or thighs, no edema NEUROLOGIC: alert, oriented, normal speech, no focal findings or movement disorder noted UTERUS : normal size, well involuted, firm, non-tender Desc; incision: no drainage, Dressing in place this AM Labs: Lab Results Component Value Date WBC 18.8 (H) 07/16/2022 HGB 10.7 (L) 07/16/2022 HCT 32.6 (L) 07/16/2022 MCV 75.9 (L) 07/16/2022 PLT 358 07/16/2022 O Antibody Screen: No results found for: LABANTI No results found for: RUBELLAIGG LABOR DELIVERY ??? SCD's ONLY (labor through ambulation) SCD's PLUS Prophylactic Anticoagulation until discharge SCD's PLUS Prophylactic Anticoagulation for 6 weeks SCD's PLUS Therapeutic Anticoagulation for 6 weeks Vaginal Delivery [] BMI ? 40 kg/m2 Delivery All patients Vaginal Delivery [] BMI ? 40 kg/m2 AND [] Antepartum hospitalization ? 72 hours within the past month Delivery 1 Major Risk Factor: [] BMI ? 35 kg/m2 [] Low Risk Thrombophilia [] PPH+RBCs, IR, or operation [] Infection+Antibiotics [] Antepartum hospitalization ? 72 hours within the past month [] PMH: Sickle Cell, SLE, Cardiac Dz, Active IBD, Active Cancer, Nephrotic Syndrome OR 2 Minor Risk Factors: [] Multiple gestation [] Age > 40 [] PPH ? 1,000cc [] (+)FMH of VTE [] Smoker [] Preeclampsia [] BMI ? 40 kg/m2 AND [] Low Risk Thrombophilia OR ANY OF THE FOLLOWING: [] High Risk Thrombophilia without prior VTE [] Low Risk Thrombophilia with (+)FMH of VTE [] Any single prior VTE ANY OF THE FOLLOWING: [] Already on LMWH/UFH [] Multiple prior VTE [] High Risk Thrombophilia with prior VTE Low Risk Thrombophilia: FVL (heterozygous), Prothrombin (heterozygous), Protein C, Protein S High Risk Thrombophilia: FVL (homozygous), Prothrombin (homozygous), FVL+Prothrombin (heterozygous), Antithrombin III, APLS Assessment/Plan: Rg Kelley is a 31 y.o. POD # 1 s/p pLTCS 2/2 Breech Care - Doing well, VSS - Male, declines circumcision - breast feeding - Contraception: Declines - Encourage ambulation and use of incentive spirometer - D/C liu catheter and saline lock IV on POD #1 - Postop Hb pending - VTE Prophylaxis: Not Indicated Depression/PTSD - No medications - Mood stable on PP Disposition: Continue current care Based on my clinical assessment, this patient is safe for self discharge (does not need transport by wheelchair) if she so chooses. Provider's Name: DO Rita Estes DO 07/17/2022, 5:42 AM Late entry due to patient care. Pt c/o pain. States tylenol and motrin does not work for her. Pt aware may have oxycodone per physician order. See flowsheet and MAR. At 0624 on [id number] Nurse reported to OB Resident Team patient's refusal of Hemoglobin blood draw due to zoroastrianism reasons, patient's refusal of pain medications due to zoroastrianism reasons and patient's refusal of 24 Hour testing for due to zoroastrianism reasons. Patient educated on purpose of Hemoglobin blood draw and risks of not having done-patient states understanding of risks and still refuses. NO new orders received at this time. Nurse will notify Bunch Breaker of refusal of 24 hour testing for infant Images from the original note were not included. Department of Obstetrics and Gynecology Labor and Delivery Triage Note CHIEF COMPLAINT: Contractions HISTORY OF PRESENT ILLNESS: The patient is a 31 y.o. 42w per Patient . OB History 1 Para Term AB Living 0 SAB IAB Ectopic Multiple Live Births Estimated Due Date: Estimated Date of Delivery: 07/04/22 REVIEW OF SYSTEMS: Pertinent items are noted in HPI. APPEARANCE: Pain: yes PHYSICAL EXAM: Vital Signs: VS wnl-reviewed/Respirations normal effort There were no vitals filed for this visit. Speculum Exam: defer heart rate: Category I Cervix: 5/70/-3 Membranes: bulging membranes BSUS: breech head maternal right IMPRESSION: Active labor DISCUSSED WITH PNC PROVIDER: Dr. Baptiste DISPOSITION: Admit to L&D documented in this encounter [facility] 07-19-2022 Miscellaneous Notes Mom still feeling full but baby is nursing. Mom pumped 10 ounces( verified amount- Mom said 2 1/2 bottles. Mom just recently finished up nursing her 17 month old. Discussed the possibility of the toddler wanting to return to the breast, tandem nursing discussed. Shown section of Taking Care of Yourself and Baby booklet.Reviewed: output parameters, contact information, and bf mothers group. Milk storage guidelines reviewed. Encouraged patient to call for assistance prn. Patient verbalized understanding. Baby was in the nursery several times at night. Sucking on a paci upon entering the room. She is having a consult with the ENT today for tongue tie. Pt is starting to feel engorged. Discussed importance of keeping baby with her and bf on cue and when she starts to feel more fullness. Discussed pacifier risks and enc to avoid until milk supply established unless medical need. Pt asking about pumping to relieve engorgement. She has a pump for home. Discussed risks of pumping and enc to just bf if able. Pump offered if she decides she still wants to pump. Reviewed tongue tie hand out and resources. Questions answered about frenotomy, laser vs scissor revision. Observed baby at breast and he latches wll, initially cheeks sunken and lower jaw elevated, discussed potential causes of TT/Lip tie. Shown how to obtain deep latch. Baby has repetitive gulping at breast, pt alerted to signs of milk transfer. Reviewed feeding cues, I&O ,skin to skin. Discussed engorgement relief tips. Enc offering both breast with each feeding. Mother using breast compression for relief. Pt has [employer] insurance and [employer] faxing her prescription to momm xp. Momm xp information provided to the patient, unsure if covered for another pump, but she will contact them. Enc bf groups after dc. Denies further questions or needs at this time. 31 year old admitted for active labor at 42 weeks. Breech presentation. Home midwifery care. History of depression, mood stable. delivery. Patient is independent and has insurance. She is prepared with her baby supplies. Denies any needs for housing, transportation or food. Discussion on the A. B. C's of safe sleep. Always place your baby on his or her back to sleep, use a firm sleep surface and your baby should not sleep in an adult bed, on a couch or chair. Keep soft objects, toys and loose bedding out of your baby's sleep area. Reviewed post depression. It is common to have blues. This is a normal response to many of the hormonal changes, stress and lack of sleep that go with raising a and physically recovering from the . Don't hesitate to talk to your provider with any concerns. There are resources in your home going booklet. To help prevent germs from spreading to you and your baby, make sure everyone washes their hands before they handle your . Avoid crowds, and keep away from sick people, anyone who is sick with a cough or fever, including family members. To be discharged to home. Denies any concerns at this time. This is the patient's second baby. She nursed her first child for 17 mo. This baby has been bf well, I&O wnl. Baby has been diagnosed with tongue tie. Also noted upper lip curls down with labial frenum that attaches to lower portion of upper gum ridge. Tongue tie hand out provided and reviewed, risks with breastfeedin reviewed. Observed baby latch and initially his mouth very narrow with shallow latch. Enc mother to wait for gaping mouth and use breast sandwich technique. After a few tries, baby latches deeply with nutritive suck and swallow. Pt alerted to swallows and signs of milk transfer. Mother manually extends lips to curl out but he curls them back in at times. Enc offering both breasts with each feeding. She is sore. Enc misty on nipples after bf. Reviewed various nipple soreness remedies. Reviewed feeding cues, I&O, skin to skin and cluster feeding. Reviewed taking care of you and your baby . Enc exclusive bf until milk supply established unless medical need. Informed of support in the hospital and bf mothers' groups after dc. Verbalizes understanding. Initial visit with mom. This is pt second baby. Pt states that she breast fed her first baby for 17 months. Pt reports that her first baby had a tongue tie and is concerned that this baby may also have tongue tie. With permission from mom, oral assessment done with gloved finger. I note what possibly could be a tongue tie. Will refer to overnight babysitter for further evaluation. Primary RN, Jp Villegas updated and will notify overnight babysitter. On demand, cue based, unlimited feeding reinforced, at least 8 times in 24 hours (after the first 24 hours). Feeding cues and output parameters discussed. Frequent skin to skin encouraged. Discussed benefits of skin to skin and milk production. Demand and supply system of breast milk production discussed. Risks of early formula supplementation and use of bottle/artificial nipple/ pacifier discussed with patient. Patient receptive to teaching. Patient's questions answered. Encouraged to call LC as needed, reviewed touch pad with patient. Hand expression of breast milk taught and return demonstration given. Patient able to easily express drops of colostrum. Patient educated that hand expression can be helpful in assisting baby with latch and stimulating milk production. Encouraged frequent hand expression - before, after and between feeds - to boost milk production. Assistance given with . Instructions given on basic positioning and latch-on technique. Shown mom how to utilize infants rooting/sucking reflexes to aid in latching baby to breast. Importance of wide, deep, latch discussed. Baby latched to left breast in foot ball hold position. Pt denies pain/discomfort with latch. Baby feeding well after instruction and several attempts. Swallows noted and pointed out to mom. Baby-led, on demand, cue based unlimited feedings reinforced, (@ least 8 after the first 24 hours). Feeding cues reviewed. Skin to skin with baby encourages feedings and milk production. Supply and demand system of breast milk production discussed. Infant output parameters reviewed. Risk of formula supplementation and use of bottle/ artificial nipple/ pacifier discouraged. Patient receptive to teaching. Mom voiced understanding. Will continue to monitor, support and educate. Mom encouraged to call as needed for LC. Problem: Goal: Experiences normal course Outcome: Progressing Goal: Appropriate maternal - bonding Outcome: Progressing Goal: Establishment of infant feeding pattern Outcome: Progressing Goal: Incisions, wounds, or drain sites healing without S/S of infection Outcome: Progressing Problem: Pain - Adult Goal: Verbalizes/displays adequate comfort level or baseline comfort level Outcome: Progressing Problem: Discharge Planning Goal: Discharge to home or other facility with appropriate resources Outcome: Progressing Images from the original note were not included. Operative Note Patient: Rg Kelley : 1990 Date of Procedure: 07/16/2022 Principal Problem: 42 weeks gestation of PREOPERATIVE DIAGNOSES: 1. at 41w5d 2. Breech Malpresentation 3. Active Labor 4. Home midwifery care 5. Depression/PTSD POSTOPERATIVE DIAGNOSES: 1. Same 2. Living , male PROCEDURE: Primary low transverse section SURGEON: Dr. Baptiste ASST: Dr. Goyo Flynn, Dr. Ojeda ANESTHESIA: spinal ANTIBIOTIC(S): 2g Ancef and Gentamycin VAG PREP (Iodine): Yes FINDINGS: Normal appearing uterus, ovaries and fallopian tubes FLUIDS: 1500 ml crystalloids URINE: 100 ml EBL: 500 ml QBL: Quantitative Blood Loss (mL): 530 mL DRAINS: liu catheter SPECIMENS: none COMPLICATIONS: none CONDITION: good, transferred to : post anesthesia recovery FINDINGS: Live male infant, breech APGARS 1 min: 8 5 min: 9 Weight: 3460 grams Tubes and ovaries: within normal limits. Description: normal INDICATION FOR PROCEDURE Patient admitted to Labor and Delivery for active labor in setting of breech malpresentation. Patient was consented for a section and was agreeable to blood products as medically indicated. This was a nonscheduled non-emergent section. DETAILS OF PROCEDURE: Patient was brought into the operating room and she was placed in the supine position slightly tilted to the left. The abdomen was prepped and draped in the usual manner. Anesthesia level was checked and was found to be adequate. The abdomen was entered through a pfannenstiel incision. The incision was carried through the subcutaneous tissue to the fascia which was nicked in the midline and fascia was in a Jose-Trujillo fashion with blunt dissection. The muscles were in the midline bluntly and sharply exposing the parietal peritoneum. The peritoneum was entered bluntly. The peritoneal incision was extended bluntly with good visualization of bladder. Bladder retractor was placed as well as Aguilera retractor. The lower uterine segment was opened in a low transverse incision with a scalpel. The amniotic cavity was entered and Clear amniotic fluid was noted. Bladder retractor and Aguilera retractor were removed, and baby was delivered from the breech presentation with fundal pressure without difficulty.The baby was handed over to the nursery personnel standing by. Placenta was extracted intact with gentle traction. The uterus was exteriorized and wrapped in a wet lap. The uterine cavity was swept and cleared of all clots and debris using a dry lap. The uterine incision was closed using a continuous locked suture of 0 monocryl. A second layer was performed. Additional bleeding was noted near the left angle of the hysterotomy and an additional figure of 8 stitch was placed. Hemostasis was ensured. The uterus was replaced in the abdomen. Hemostasis of the operative field was ensured and the gutters were cleared of all clots and debris. Surgicel Foam was placed over the hysterotomy. The peritoneum and overlying rectus muscles were well approximated and did not require plication midline. Fascia was closed with 0 Looped PDS in a running fashion. Subcutaneous closure was performed with 3-0 Monocryl Hemostasis was ensured. Skin closure was performed with 4-0 monocryl suture and steri-strips. Sponge, needle and instrument counts were correct twice. Patient was transferred to the recovery room in satisfactory stable condition. Clover Ojeda DO 07/16/2022 3:26 AM LABOR DELIVERY ??? SCD's ONLY (labor through ambulation) SCD's PLUS Prophylactic Anticoagulation until discharge SCD's PLUS Prophylactic Anticoagulation for 6 weeks SCD's PLUS Therapeutic Anticoagulation for 6 weeks Vaginal Delivery [] BMI ? 40 kg/m2 Delivery All patients Vaginal Delivery [] BMI ? 40 kg/m2 AND [] Antepartum hospitalization ? 72 hours within the past month Delivery 1 Major Risk Factor: [] BMI ? 35 kg/m2 [] Low Risk Thrombophilia [] PPH+RBCs, IR, or operation [] Infection+Antibiotics [] Antepartum hospitalization ? 72 hours within the past month [] PMH: Sickle Cell, SLE, Cardiac Dz, Active IBD, Active Cancer, Nephrotic Syndrome OR 2 Minor Risk Factors: [] Multiple gestation [] Age > 40 [] PPH ? 1,000cc [] (+)FMH of VTE [] Smoker [] Preeclampsia [] BMI ? 40 kg/m2 AND [] Low Risk Thrombophilia OR ANY OF THE FOLLOWING: [] High Risk Thrombophilia without prior VTE [] Low Risk Thrombophilia with (+)FMH of VTE [] Any single prior VTE ANY OF THE FOLLOWING: [] Already on LMWH/UFH [] Multiple prior VTE [] High Risk Thrombophilia with prior VTE Low Risk Thrombophilia: FVL (heterozygous), Prothrombin (heterozygous), Protein C, Protein S High Risk Thrombophilia: FVL (homozygous), Prothrombin (homozygous), FVL+Prothrombin (heterozygous), Antithrombin III, APLS VTE Prophylaxis: Not Indicated Associated attestation - Diann Baptiste DO - 07/16/2022 6:38 AM EDT Hospital Care (Independent): I independently saw and evaluated the patient. I agree with the findings and plan of care as documented in the resident's note. documented in this encounter [facility] 07-19-2022 Obstetrics Note Mom still feeling full but baby is nursing. Mom pumped 10 ounces( verified amount- Mom said 2 1/2 bottles. Mom just recently finished up nursing her 17 month old. Discussed the possibility of the toddler wanting to return to the breast, tandem nursing discussed. Shown section of Taking Care of Yourself and Baby booklet.Reviewed: output parameters, contact information, and bf mothers group. Milk storage guidelines reviewed. Encouraged patient to call for assistance prn. Patient verbalized understanding. [facility] 07-19-2022 Hospital course Narrative Images from the original note were not included. Department of Obstetrics and Gynecology Delivery Discharge Summary Admission on 07/16/2022 1:06 AM Reason for admission: Contractions/Active Labor Intrapartum Course: Patient was noted to be breech on admission and advanced dilation. Decision was made to proceed with PCD for breech presentation 41w5d PC-01 Indications for Delivery: Was patient delivered between 37w0d - [id number]? No Surgical Operations & Procedures: Date of delivery: 07/16/22 Delivery Type: PCD Anesthesia: Spinal,TAP block, Duramorph Delivery Complications: none EBL: 500 cc Pertinent Findings & Procedures: Information for the patient's : Viv Kelley [[id number]] male 3460 g (7 lb 10.1 oz) Apgars: Information for the patient's : Viv Kelley [[id number]] Course: Uncomplicated Infant: Male, Declines Circumcision Blood Type/Rh: O Antibody Screen: No results found for: LABANTI Rubella: No results found for: RUBELLAIGG Contraception: Declines : Yes VTE Prophylaxis: None Meds: Medication List ASK your doctor about these medications ferrous sulfate 325 (65 Fe) MG tablet 1 PO Activity: Activity as tolerated Diet: Regular diet If a patient meets criteria for hypertension, make sure the following are done prior to discharge: [] Order a blood pressure kit through [facility] (or the patient's own pharmacy on the weekend) [] Order the blood pressure log through [facility] [] Place a telephone encounter for a 72 hour blood pressure check. Specify that this will be a virtual visit. [] Include blood pressure dot phrase (.sumobhypertension) in discharge instructions [x] Check here if the patient does NOT meet criteria for hypertension Follow up Care: Follow up appointment in 4 weeks with [facility] Condition on discharge: Stable Discharge to: Home Discharge date: 07/19/22 Discharge Dx: PCD, Depression/PTSD Instructions to Patient:: Pelvic Rest (no intercourse, tampons, douching, etc) x 6 weeks Specific discharge instruction printed 42 weeks gestation of [O48.0, Z3A.42] Patient Active Problem List Diagnosis Closed nondisplaced fracture of anterior process of left calcaneus Closed displaced fracture of navicular bone of left foot Closed nondisplaced fracture of cuboid bone of left foot Intractable chronic migraine without aura and without status migrainosus care, antepartum Incomplete bladder emptying Recurrent UTI Pyelectasis of fetus on ultrasound Flank pain Frequency of urination Urgency of urination Hemorrhoids Interstitial cystitis 42 weeks gestation of Comments: Home care, Follow-up care and control were reviewed. Signs and symptoms of mastitis and Post Depression were reviewed. The patient is to notify her physician if any of these occur. Rita Clark DO on 07/19/2022 at 5:33 AM documented in this encounter [facility] 07-19-2022 Hospital Discharg e instructions Rita Clark DO - 07/19/2022 5:31 AM EDT Images from the original note were not included. Thank you for allowing us to care of you at [facility]. This time can be one of many emotional ups and downs and many changes in your life. In these first weeks try to take good care of yourself because you will likely feel very tired. It may take 4 to 6 weeks to feel like yourself again, and possibly longer if you had a . FOLLOW-UP: Your follow-up care is a yadav part of your treatment and safety. Follow-up with your OB providerin 4 weeks or as specified by your OB provider. If you had high blood pressure, visit your OB provider within 3-5 days after being home. Most women's blood pressure will return to pre- levels after delivery. However, some patients continue to have problems with their blood pressure, and some even get worse. Very high blood pressure can lead to seizures or stroke which can be life threatening. If ordered by your provider, take your blood pressure at home and call your OB provider if you have a high reading. Your OB provider can write you a prescription for a blood pressure monitor if you do not have one. Be sure to make and go to all appointments, and call your OB provider if you are having problems. It's also a good idea to know your test results and keep a list of the medicines you take. BLEEDING Vaginal bleeding will decrease in amount over the next few weeks. Bleeding may belt picker and then decrease again around 7-10 days . Use pads instead of tampons for the bloody flow that may last as long as 2 weeks. You will notice that as your activity increases, your flow may increase. Call your provider if you are saturating one maxi pad in an hour & passing large clots for 3 hours or more. ACTIVITY NO SEXUAL activity for 6 weeks or until advised by your OB provider; Nothing in vagina: intercourse, tampons, or douching. Begin to think about your reproductive life plan. Talk to your OB provider about if and when you would like another baby in the future. The recommendation for safe spacing is 18-24 months. Showering is okay; NO tub baths, swimming, or hot tubs. Gradually increase your activity. Resume exercise regimen only after advised by your )OB provider. Avoid lifting anything heavier than ten pounds or a gallon of milk for six weeks. Avoid driving 1 week for vaginal delivery and 2 weeks for section, or longer if you are on prescription pain medicine unless otherwise instructed by your OB provider . Rise slowly from a lying to sitting and then a standing position. Climb stairs carefully. You may feel tired or have a lack of energy. You may continue your vitamin to replenish nutrients post-delivery. Nap when whenever you can to catch up on sleep. EMOTIONS You may feel ramirez, sad, teary, & overwhelmed for the first 2 weeks ; however, feelings of depression may occur any time within the first year after delivery. Contact your OB provider if you feel you may be showing signs of depression, or have thoughts of harming yourself or or anyone.. WOUND CARE For Vaginal Delivery: Shower daily, and cleanse your perineum (bottom) with mild soap from front to back. Use the plastic squirt bottle until bleeding stops each time you use the restroom instead of wiping with toilet paper. Ease soreness of hemorrhoids and the area between your vagina and rectum with ice compresses or witch vaishnavi pads. If used, stitches will dissolve in 4-6 weeks on their own. You may use a sitz bath or soak in a clean tub with drain open and water running for comfort. Kegel exercises will help restore bladder control. To do these tighten your muscles as if you were stopping your urine flow. Hold for a few seconds and then relax. Do these throughout the day. For Section Delivery: Keep your incision clean and dry. If you had steri-strips you may remove these once they start falling off. If you have scar they need to be removed 3-10 daysafter delivery. If you have steri-strips, remove after 7 - 10 days. Do not wear clothing that irritates the incision line. If your incision is in a crease that is not dry, use a hair-dryer to dry the area 3 times a day. If you develop fever, shaking chills, redness, swelling, drainage or discharge from your wound, or if your wound looks like it is coming apart call your provider immediately. BREAST CARE If you develop a warm, red, tender area on your breast or develop a fever contact your OB provider. If your breasts become engorged ask your provider because treatment can vary according to your needs. DIET & CONSTIPATION Eat a well-balanced diet focusing on foods high in fiber and protein such as: whole grain cereals and breads, fruits and vegetables and legumes (eg, beans, lentils) Drink 8-10 glasses of fluids daily, especially water. Limit caffeine. To avoid constipation you may take a mild hysf-nib-gfyelna stool softener (such as colace) as recommended by your OB provider. SWELLING Try to keep your legs elevated when you are sitting or lying down. Stay hydrated and take walks. If you had high blood pressure, weigh yourself at the same time each day. Write down your weight and take the record to your OB provider appointment. MEDICATIONS Take all medications prescribed for you exactly as ordered. Don't take any drugs not prescribed to you or over the counter medicines unless recommended by your provider. Don't smoke. WHEN TO CALL THE OB PROVIDER Signs of infection, including fever and chills Increased bleeding: soaking more than one pad an hour or passing clots the size of an egg or larger. Wounds that become red, swollen or drain pus Vaginal discharge that smells foul New pain, swelling, or tenderness in your legs Pain that you can't control with the medications you've been given Pain, burning, urgency or frequency of urination, or persistent bleeding in the urine Cough, shortness of breath, or serious difficulty catching your breath Chest pain or pain in the upper right area of your belly Headache (very painful) or vision changes like blurry or double vision, seeing spots or 'auras' Swelling that is worse or weight gain of more than 3 pounds in 3 days Depression, suicidal thoughts, or feelings of harming someone else Breasts that are hot, red and accompanied by fever Any cracking or bleeding from the nipple or areola (the dark-colored area of the breast) You may have been given a magnet like this: If so, we encourage you to use it on your refrigerator as a reminder of when to call your OB provider. IIn case of an emergency, call 911 immediately. If you are Covid-19 positive or a Person Under Investigation (PUI) These could be signs that your COVID-19 symptoms are worsening and you may need emergency care: You are severely dizzy or lightheaded. You are confused or can't think clearly. Your face and lips have a blue color. You are unable to respond to others or are very hard to wake up. Prevention steps for People with confirmed or suspected COVID-19 (including persons under investigation) who do not need to be hospitalized and People with confirmed COVID-19 who were hospitalized and determined to be medically stable to go home Your healthcare provider and public health staff will evaluate whe ther you can be cared for at home. If it is determined that you do not need to be hospitalized and can be isolated at home, you will be monitored by staff from your local or state health department. You should follow the prevention steps below until a healthcare provider or local or state health department says you can return to your normal activities. Stay home except to get medical care People who are mildly ill with COVID-19 are able to isolate at home during their illness. You should restrict activities outside your home, except for getting medical care. Do not go to work, school, or public areas. Avoid using public transportation, ride-sharing, or taxis. Separate yourself from other people and animals in your home People: As much as possible, you should stay in a specific room and away from other people in your home. Also, you should use a separate bathroom, if available. Animals: You should restrict contact with pets and other animals while you are sick with COVID-19, just like you would around other people. Although there have not been reports of pets or other animals becoming sick with COVID-19, it is still recommended that people sick with COVID-19 limit contact with animals until more information is known about the virus. When possible, have another member of your household care for your animals while you are sick. If you are sick with COVID-19, avoid contact with your pet, including petting, snuggling, being kissed or licked, and sharing food. If you must care for your pet or be around animals while you are sick, wash your hands before and after you interact with pets and wear a facemask. Call ahead before visiting your provider If you have a medical appointment, call the healthcare provider and tell them that you have or may have COVID-19. This will help the healthcare provider's office take steps to keep other people from getting infected or exposed. Wear a facemask You should wear a facemask when you are around other people (e.g., sharing a room or vehicle) or pets and before you enter a healthcare provider's office. If you are not able to wear a facemask (for example, because it causes trouble breathing), then people who live with you should not stay in the same room with you, or they should wear a facemask if they enter your room. Cover your coughs and sneezes Cover your mouth and nose with a tissue when you cough or sneeze. Throw used tissues in a lined trash can. Immediately wash your hands with soap and water for at least 20 seconds or, if soap and water are not available, clean your hands with an alcohol-based hand sausage cooker that contains at least 60% alcohol. Clean your hands often Wash your hands often with soap and water for at least 20 seconds, especially after blowing your nose, coughing, or sneezing; going to the bathroom; and before eating or preparing food. If soap and water are not readily available, use an alcohol-based hand sausage cooker with at least 60% alcohol, covering all surfaces of your hands and rubbing them together until they feel dry. Soap and water are the best option if hands are visibly dirty. Avoid touching your eyes, nose, and mouth with unwashed hands. Avoid sharing personal household items You should not share dishes, drinking glasses, cups, eating utensils, towels, or bedding with other people or pets in your home. After using these items, they should be washed thoroughly with soap and water. Clean all high-touch surfaces everyday High touch surfaces include counters, tabletops, doorknobs, bathroom fixtures, toilets, phones, keyboards, tablets, and bedside tables. Also, clean any surfaces that may have blood, stool, or body fluids on them. Use a household cleaning spray or wipe, according to the label instructions. Labels contain instructions for safe and effective use of the cleaning product including precautions you should take when applying the product, such as wearing gloves and making sure you have good ventilation during use of the product. Monitor your symptoms Seek prompt medical attention if your illness is worsening (e.g., difficulty breathing). Before seeking care, call your healthcare provider and tell them that you have, or are being evaluated for, COVID-19. Put on a facemask before you enter the facility. These steps will help the healthcare provider's office to keep other people in the office or waiting room from getting infected or exposed. Ask your healthcare provider to call the local or state health department. Persons who are placed under active monitoring or facilitated self-monitoring should follow instructions provided by their local health department or occupational health professionals, as appropriate. When working with your local health department check their available hours. If you have a medical emergency and need to call 911, notify the dispatch personnel that you have, or are being evaluated for COVID-19. If possible, put on a facemask before emergency medical services arrive. Discontinuing home isolation Patients with confirmed COVID-19 should remain under home isolation precautions until the risk of secondary transmission to others is thought to be low. The decision to discontinue home isolation precautions should be made on a [id number] basis, in consultation with healthcare providers and formerly [facility] health departments. Information on COVID-19 for all patients Call your provider before your next appointment if you develop any of the following symptoms: fever, cough, fatigue, anorexia, shortness of breath, sputum production, and muscle pains. Headache, confusion, rhinorrhea, sore throat, hemoptysis, vomiting, and diarrhea have been reported but are less common. Some persons with COVID-19 have experienced gastrointestinal symptoms such as diarrhea and nausea prior to developing fever and lower respiratory tract signs and symptoms. Ways to [place] with Anxiety & Stress It is normal to feel anxious or worried about COVID-19. You might feel sad about canceling celebrations and staying away from family and friends. Keep in mind that most people do not get severely ill from COVID-19. It is important to have a plan in case you get sick to prevent spreading the disease to others including an Advanced Care Plan (communicating and documenting your desired health care plan with family and healthcare team). You can take care of yourself by: Taking a break from watching the news Take deep breaths, stretch or meditate Getting exercise, eating healthy foods, and drinking plenty of water Finding activities you can enjoy inside your home Staying in touch with your family and friends. Tell your partner, family, and friends how you are feeling. Advance Care Planning People with COVID-19 may have no symptoms, mild symptoms, such as fever, cough, and shortness of breath or they may have more severe illness, developing severe and fatal pneumonia. As a result, Advance Care Planning with attention to naming a health care decision maker (someone you trust to make healthcare decisions for you if you could not speak for yourself) and sharing other health care preferences is important BEFORE a possible health crisis. Please contact your Primary Care Provider to discuss Advance Care Planning. Learning About Coronavirus (COVID-19) Coronavirus (COVID-19): Overview What is coronavirus (COVID-19)? The coronavirus disease (COVID-19) is caused by a virus. It is an illness that was first found in [facility], in February 2019. It has since spread worldwide. The virus can cause fever, cough, and trouble breathing. In severe cases, it can cause pneumonia and make it hard to breathe without help. It can cause . Coronaviruses are a large group of viruses. They cause the common cold. They also cause more serious illnesses like [place] respiratory syndrome (MERS) and severe acute respiratory syndrome (SARS). COVID-19 is caused by a novel coronavirus. That means it's a new type that has not been seen in people before. This virus spreads [id number] through droplets from coughing and sneezing. It can also spread when you are close to someone who is infected. It is always good practice to clean high touch surfaces frequently and avoid touching your mouth, nose and eyes until you have washed your hands if you touched these areas. What can you do to protect yourself from coronavirus (COVID-19)? The best way to protect yourself from getting sick is to: Wear a face mask. Avoid areas where there is an outbreak. Avoid contact with people who may be infected. Wash your hands often with soap or alcohol-based hand sanitizers. Avoid crowds and try to stay at least 6 feet away from other people. Wash your hands often, especially after you cough or sneeze. Use soap and water, and scrub for at least 20 seconds. If soap and water aren't available, use an alcohol-based hand sausage cooker. Call 911 anytime you think you may need emergency care. For example, call if: You have severe trouble breathing. (You can't talk at all.) You have constant chest pain or pressure. You are severely dizzy or lightheaded. You are confused or can't think clearly. Your face and lips have a blue color. You pass out (lose consciousness) or are very hard to wake up. Call your OB Provider now if you develop symptoms such as: Shortness of breath. Fever. Cough. If you need to get care, call ahead to the provider's office for instructions before you go. Make sure you wear a face mask, to prevent exposing other people to the virus. Where can you get the latest information? The following health organizations are tracking and studying this virus. Their websites contain the most up-to-date information. You'll also learn what to do if you think you may have been exposed to the virus. U.S. Centers for Disease Control and Prevention (CDC): The CDC provides updated news about the disease and travel advice. The website also tells you how to prevent the spread of infection. www.cdc.gov World Health Organization (WHO): WHO offers information about the virus outbreaks. WHO also has travel advice. www.who.int Current as of: June 18, 2019 Content Version: 12.4 [employer]). Care instructions adapted under license by your healthcare professional. If you have questions about a medical condition or this instruction, always ask your healthcare professional. [employer]) disclaims any warranty or liability for your use of this information. General Recommendations for Routine Cleaning and Disinfection of Households Community members can practice routine cleaning of frequently touched surfaces (for example: tables, doorknobs, light switches, handles, desks, toilets, faucets, sinks) with household power transformer inspector and EPA-registered disinfectants that are appropriate for the surface, following label instructions. Labels contain instructions for safe and effective use of the cleaning product including precautions you should take when applying the product, such as wearing gloves and making sure you have good ventilation during use of the product. These guidelines are focused on household settings and are meant for the general public. Cleaning refers to the removal of germs, dirt, and impurities from surfaces. Cleaning does not kill germs, but by removing them, it lowers their numbers and the risk of spreading infection. Disinfecting refers to using chemicals to kill germs on surfaces. This process does not necessarily clean dirty surfaces or remove germs, but by killing germs on a surface after cleaning, it can further lower the risk of spreading infection. General Recommendations for Cleaning and Disinfection of Households with People Isolated in Home Care - Confirmed or suspected COVID 19 Household members should educate themselves about COVID-19 symptoms and preventing the spread of COVID-19 in homes. Clean and disinfect high-touch surfaces daily in household common areas (e.g. tables, hard-backed chairs, doorknobs, light switches, remotes, handles, desks, toilets, sinks) In the bedroom/bathroom dedicated for an ill person: consider reducing cleaning frequency to as-needed (e.g., soiled items and surfaces) to avoid unnecessary contact with the ill person. As much as possible, an ill person should stay in a specific room and away from other people in their home. The caregiver can provide personal cleaning supplies for an ill person's room and bathroom, unless the room is occupied by child or another person for whom such supplies would not be appropriate. These supplies include tissues, paper towels, power transformer inspector and EPA-registered disinfectants (see list link at CDC website). If a separate bathroom is not available, the bathroom should be cleaned and disinfected after each use by an ill person. If this is not possible, the caregiver should wait as long as practical after use by an ill person to clean and disinfect the high-touch surfaces. How to clean and disinfect: Hard Surfaces Wear disposable gloves when cleaning and disinfecting surfaces. Gloves should be discarded after each cleaning. If reusable gloves are used, those gloves should be dedicated for cleaning and disinfection of surfaces for COVID-19 and should not be used for other purposes. Consult the professor of visual arts's instructions for cleaning and disinfection products used. Clean hands immediately after gloves are removed. If surfaces are dirty, they should be cleaned using a detergent or soap and water prior to disinfection. For disinfection, diluted household bleach solutions, alcohol solutions with at least 70% alcohol, and most common EPA-registered household disinfectants should be effective. Diluted household bleach solutions can be used if appropriate for the surface. Follow professor of visual arts's instructions for application and proper ventilation. Check to ensure the product is not past its expiration date. Never mix household bleach with ammonia or any other cleanser. Unexpired household bleach will be effective against coronaviruses when properly diluted. Prepare a bleach solution by mixin tablespoons (1/3rd cup) bleach per gallon of water or 4 teaspoons bleach per quart of water Products with EPA-approved emerging viral pathogens [facility] iconexternal icon are expected to be effective against COVID-19 based on data for harder to kill viruses. Follow the professor of visual arts's instructions for all cleaning and disinfection products (e.g., concentration, application method and contact time, etc.). Soft (porous) surfaces such as carpeted floor, rugs, and drapes Remove visible contamination if present and clean with appropriate power transformer inspector indicated for use on these surfaces. After cleaning: Launder items as appropriate in accordance with the professor of visual arts's instructions. If possible, launder items using the warmest appropriate water setting for the items and dry items completely, or Clothing, towels, linens and other items that go in the laundry Wear disposable gloves when handling dirty laundry from an ill person and then discard after each use. If using reusable gloves, those gloves should be dedicated for cleaning and disinfection of surfaces for COVID-19 and should not be used for other household purposes. Clean hands immediately after gloves are removed. If no gloves are used when handling dirty laundry, be sure to wash hands afterwards. If possible, do not shake dirty laundry. This will minimize the possibility of dispersing virus through the air. Launder items as appropriate in accordance with the professor of visual arts's instructions. If possible, launder items using the warmest appropriate water setting for the items and dry items completely. Dirty laundry from an ill person can be washed with other people's items. Clean and disinfect clothes hampers according to guidance above for surfaces. If possible, consider placing a garbage worker that is either disposable (can be thrown away) or can be laundered. [facility] has a list of EPA approved cleaning products on their website - https://www.cdc.gov/coronavirus/ 2019-ncov/community/home/cleanin g-disinfection.html https://www.[employer].co m/Fvoye-Yjtclwhtbbd-Daqriagv-Pro ducts-List.pdf [employer] Stores with delivery and belt picker services: [employer]: Free belt picker at locations Delivery is $12.95 a month Website - [employer] [place]: Property [employer]or $2.95 (1st order is free) Delivery is $14.95 Website - [employer] [place]: aerosol supervisor is free Delivery is $5.95 Website - [employer]: aerosol supervisor is $4.95 Delivery is $9.95 [email or web address]: aerosol supervisor is $4.95 Delivery is $9.95 Website [employer]: Can be ordered for delivery and belt picker with [employer] Website - [email or web address]: Free deliver for first 3 orders of $35 or more Website - [employer] Will deliver from [facility], [employer], [employer], and [employer]. Annual membership is $99 Monthly membership is $14 documented in this encounter [facility] 07-18-2022 Miscellaneous Notes Patient delivered at [facility]. She was seen in our office for 9 visits. Please bill all visits if needed. Shreya Jordan RN documented in this encounter [facility] 07-18-2022 Obstetrics Note Baby was in the nursery several times at night. Sucking on a paci upon entering the room. She is having a consult with the ENT today for tongue tie. Pt is starting to feel engorged. Discussed importance of keeping baby with her and bf on cue and when she starts to feel more fullness. Discussed pacifier risks and enc to avoid until milk supply established unless medical need. Pt asking about pumping to relieve engorgement. She has a pump for home. Discussed risks of pumping and enc to just bf if able. Pump offered if she decides she still wants to pump. Reviewed tongue tie hand out and resources. Questions answered about frenotomy, laser vs scissor revision. Observed baby at breast and he latches wll, initially cheeks sunken and lower jaw elevated, discussed potential causes of TT/Lip tie. Shown how to obtain deep latch. Baby has repetitive gulping at breast, pt alerted to signs of milk transfer. Reviewed feeding cues, I&O ,skin to skin. Discussed engorgement relief tips. Enc offering both breast with each feeding. Mother using breast compression for relief. Pt has [employer] insurance and [employer] faxing her prescription to momm xp. Momm xp information provided to the patient, unsure if covered for another pump, but she will contact them. Enc bf groups after dc. Denies further questions or needs at this time. [facility] 07-17-2022 Note Formatting of this n ote might be different from the original. 31 year old admitted for active labor at 42 weeks. Breech presentation. Home midwifery care. History of depression, mood stable. delivery. Patient is independent and has insurance. She is prepared with her baby supplies. Denies any needs for housing, transportation or food. Discussion on the A. B. C's of safe sleep. Always place your baby on his or her back to sleep, use a firm sleep surface and your baby should not sleep in an adult bed, on a couch or chair. Keep soft objects, toys and loose bedding out of your baby's sleep area. Reviewed post depression. It is common to have blues. This is a normal response to many of the hormonal changes, stress and lack of sleep that go with raising a and physically recovering from the . Don't hesitate to talk to your provider with any concerns. There are resources in your home going booklet. To help prevent germs from spreading to you and your baby, make sure everyone washes their hands before they handle your . Avoid crowds, and keep infant away from sick people, anyone who is sick with a cough or fever, including family members. To be discharged to home. Denies any concerns at this time. T [facility] 07-17-2022 Note Formatting of this n ote might be different from the original. 31 year old admitted for active labor at 42 weeks. Breech presentation. Home midwifery care. History of depression, mood stable. delivery. Patient is independent and has insurance. She is prepared with her baby supplies. Denies any needs for housing, transportation or food. Discussion on the A. B. C's of safe sleep. Always place your baby on his or her back to sleep, use a firm sleep surface and your baby should not sleep in an adult bed, on a couch or chair. Keep soft objects, toys and loose bedding out of your baby's sleep area. Reviewed post depression. It is common to have blues. This is a normal response to many of the hormonal changes, stress and lack of sleep that go with raising a and physically recovering from the . Don't hesitate to talk to your provider with any concerns. There are resources in your home going booklet. To help prevent germs from spreading to you and your baby, make sure everyone washes their hands before they handle your . Avoid crowds, and keep infant away from sick people, anyone who is sick with a cough or fever, including family members. To be discharged to home. Denies any concerns at this time. [facility] 07-17-2022 Obstetrics Note This is the patient's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 pains. Please advised on on tylenol & warm baths. See if can move PNOB to this week. She can try vitamin B6 50 2 times day and frequent snacks for the nausea. Marya Chester MD * Telephone Encounter - Shreya Jordan RN - 11/15/2021 12:17 PM EDT Patient called back in to add she was having frequent vaginal pain daily for awhile, but that hasn't occurred for one week now. She also has nausea all day and a decrease in appetite. Shreya Jordan RN * Telephone Encounter - Marika Isaac RN - 11/15/2021 11:20 AM EDT LMP 09/27/21 7w0d Patient calling with c/o lower left sided pelvic pain for the last 3 weeks. Pain rate of 3-4 out of10. Pain is intermittent. Ranges from a dull ache to a sharp pain that will last for a few minutes.Bilateral flank pain started at the same time. Occurs independently from the pelvic pain. Pain rateof 3-4. No vaginal bleeding or spotting. Also, having diarrhea up to four times a day. Sometimes watery. PCP aware. Believed it could have been caused by the Zoloft. Patient stopped taking due to thediarrhea and finding out she's . Last dose 10/03/21. Denies recent illness or new foods. NewOB visit scheduled for 11/30/21. Please advise. Marika Isaac RN documented in this encounterMem[facility]08-16-2022 Miscellaneous Notes* Telephone Encounter - Marika Isaac RN - 11/01/2021 9:24 AM EDT PNOB scheduled * Telephone Encounter - Melisa Hutton RN - 11/01/2021 9:12 AM EDT Left message for patient to return phone call. Patient has an appointment with Dr Alcaraz for NOB appointment. Please schedule PNOB appointment. documented in this encounterMem[facility]03-17-2022 Hospital Discharge instructions* Instructions* Lico Wright MD - 06/02/2021 Call your doctor in the morning; return for fever/vomiting; can use tylenol for pain * Attachments The following attachments cannot be sent through Care Everywhere. * Cluster Headache (Swedish) documented in this encounterSUMWI Work Phone: 1(612) 523-425002-02-2022 Hospital Discharge instructions* Instructions* Willam Benjamin MD - 04/20/2021 Post-Operative Instructions These are general instructions for you to follow after your surgery. Your doctor or a member of hisstaff will outline any additional or special instructions that pertain to you. Activity: You are encouraged to increase your physical activity back to the levels of what you did prior to the procedure. You may go up and down steps, but please rest when you are tired. Any limitson lifting will be discussed with you or your family by the doctor. - Do NOT drive for the remainder of the day following surgery (or perhaps longer, as instructed by the doctor). Diet and Fluid Intake: Eating a well balanced diet is important. If you were on a specific diet before your surgery, you should return to that diet. Otherwise, there are no diet restrictions after surgery. - Do NOT drink alcoholic beverages while taking pain medications. - Drink at least one 8-ounce glass of water between meals for 2 days after the procedure. Bowel Management: Constipation sometimes occurs after surgery, especially when taking pain medication. Eating a well-balanced diet and maintaining a good fluid intake are often all that is necessary to return to you pre-surgical bowel regimen. - It is important not to strain excessively when having a bowel movement for the first several weeks following your surgery. A stool softener such as Colace may be helpful. You can purchase stool softeners without a prescription at your local drug store. - If a stool softener is not enough to relieve your constipation, you may try taking Milk of Magnesia. - You may use over the counter medicine, such a Gas-X, if you experience gas pains after surgery. Showering: You may shower when you get home from the hospital. If you have a string-stent in place, please cover the tape with Saran wrap prior to showering Pain Medications: Your doctor will prescribe the appropriate pain medication for you. Take these pills only as directed and only if you need them. If you are experiencing mild discomfort, you may take Tylenol or Ibuprofen. - NEVER mix alcohol with prescription pain medications. - Pain medication may make you drowsy. Do not take pain medication when doing any activity that requires coordination, such as driving. Infection: Report the following warning signs of infection to your doctor immediately: o A temperature of 101 degrees or greater o Increased redness, swelling or drainage at the incision site o Sudden onset of increased pain or tenderness or warmth around the incision o Foul odor from the incision site. Miscellaneous - It is normal for you to have minor discomfort after your surgery. However, if there are any significant changes in your condition such as shortness of breath, difficulty breathing, or pain or uneven swelling in your legs please go to the Emergency Room. Return to Work: If you work in an office and are not lifting or doing strenuous activity, you may return to work when comfortable. If your work involves strenuous activity, you may need more time before returning to work. - If necessary, our office can provide a letter stating the date that you may return to work. Follow-up Appointments - Follow-up appointments will be scheduled by our office. If you have any questions, please call . Willam Benjamin M.D. documented in this encounterSUMMA Work Phone: 1(603) 451-322911-14-2021 History of Past illness Narrative* Problem Noted Date Resolved Date Indication for care in labor or delivery 021 12/05/2021 Overview: -IAL -GBS unknown, term -Pitocin prn -Epidural in -SROM ~1600 Insufficient antepartum care 01/30/2021 Overview: -Transfer of care from Dr. Doran -No GBS swab done -Missed appointments -Social work consult Pruritus 01/30/2021 12/05/2021 Overview: -LFTs and bile acids ordered but never drawn Antepartum anemia 10/22/2020 12/05/2021 Overview: -Hgb 10.7 -Endorses taking oral iron Ultrasound recheck of pyelectasis, antepar patrick 10/11/2020 11/23/2020 Overview: 11/23/20 - resolved! - Marya Chester MD 10/11/2020 Bilateral mild pyelectasis noted on previous ultrasounds. Anatomy US ordered at time of NOB. SW Pruritus of , antepartum 10/06/2020 01/30/2021 Overview: 10/06/2020 Bile acids and LFT's pend. SW with care elsewhere, antepart um 09/30/2020 01/30/2021 Overview: 09/30/2020 She is transferring care from Dr. Doran in [place]. She is 23 weeks 2 days by dates. She states baby has been active. Patient signed a release form to obtain her medical records from Dr. Doran's office. TKRN Abnormal ultrasonic finding on screeni ng of mother 09/30/2020 12/05/2021 Overview: - pyelectasis on US in 09/30/2020 -Resolved on 25 weeks scan associated with use of clomiphene, ant epartum 09/30/2020 12/05/2021 documented as of this encounter (statuses as of 12/20/2021) [facility] History of Past illness Narrative* Problem Noted Date Resolved Date Indication for care in labor or delivery 021 12/05/2021 Overview: -IAL -GBS unknown, term -Pitocin prn -Epidural in -SROM ~1600 Insufficient antepartum care 01/30/2021 Overview: -Transfer of care from Dr. Doran -No GBS swab done -Missed appointments -Social work consult Pruritus 01/30/2021 12/05/2021 Overview: -LFTs and bile acids ordered but never drawn Antepartum anemia 10/22/2020 12/05/2021 Overview: -Hgb 10.7 -Endorses taking oral iron Ultrasound recheck of pyelectasis, antepar patrick 10/11/2020 11/23/2020 Overview: 11/23/20 - resolved! - Marya Chester MD 10/11/2020 Bilateral mild pyelectasis noted on previous ultrasounds. Anatomy US ordered at time of NOB. SW Pruritus of , antepartum 10/06/2020 01/30/2021 Overview: 10/06/2020 Bile acids and LFT's pend. SW with care elsewhere, antepart um 09/30/2020 01/30/2021 Overview: 09/30/2020 She is transferring care from Dr. Doran in [place]. She is 23 weeks 2 days by dates. She states baby has been active. Patient signed a release form to obtain her medical records from Dr. Doran's office. TKRN Abnormal ultrasonic finding on screeni ng of mother 09/30/2020 12/05/2021 Overview: - pyelectasis on US in 09/30/2020 -Resolved on 25 weeks scan associated with use of clomiphene, ant epartum 09/30/2020 12/05/2021 documented as of this encounter (statuses as of 12/29/2021) [facility] History of Past illness Narrative* Problem Noted Date Resolved Date Indication for care in labor or delivery 021 12/05/2021 Overview: -IAL -GBS unknown, term -Pitocin prn -Epidural in -SROM ~1600 Insufficient antepartum care 01/30/2021 Overview: -Transfer of care from Dr. Doran -No GBS swab done -Missed appointments -Social work consult Pruritus 01/30/2021 12/05/2021 Overview: -LFTs and bile acids ordered but never drawn Antepartum anemia 10/22/2020 12/05/2021 Overview: -Hgb 10.7 -Endorses taking oral iron Ultrasound recheck of pyelectasis, antepar patrick 10/11/2020 11/23/2020 Overview: 11/23/20 - resolved! - Marya Chester MD 10/11/2020 Bilateral mild pyelectasis noted on previous ultrasounds. Anatomy US ordered at time of NOB. SW Pruritus of , antepartum 10/06/2020 01/30/2021 Overview: 10/06/2020 Bile acids and LFT's pend. SW with care elsewhere, antepart um 09/30/2020 01/30/2021 Overview: 09/30/2020 She is transferring care from Dr. Doran in [place]. She is 23 weeks 2 days by dates. She states baby has been active. Patient signed a release form to obtain her medical records from Dr. Doran's office. TKRN Abnormal ultrasonic finding on screeni ng of mother 09/30/2020 12/05/2021 Overview: - pyelectasis on US in 09/30/2020 -Resolved on 25 weeks scan associated with use of clomiphene, ant epartum 09/30/2020 12/05/2021 documented as of this encounter (statuses as of 12/29/2021) [facility] History of Past illness Narrative* Problem Noted Date Resolved Date Indication for care in labor or delivery 021 12/05/2021 Overview: -IAL -GBS unknown, term -Pitocin prn -Epidural in -SROM ~1600 Insufficient antepartum care 01/30/2021 Overview: -Transfer of care from Dr. Doran -No GBS swab done -Missed appointments -Social work consult Pruritus 01/30/2021 12/05/2021 Overview: -LFTs and bile acids ordered but never drawn Antepartum anemia 10/22/2020 12/05/2021 Overview: -Hgb 10.7 -Endorses taking oral iron Ultrasound recheck of pyelectasis, antepar patrick 10/11/2020 11/23/2020 Overview: 11/23/20 - resolved! - Marya Chester MD 10/11/2020 Bilateral mild pyelectasis noted on previous ultrasounds. Anatomy US ordered at time of NOB. SW Pruritus of , antepartum 10/06/2020 01/30/2021 Overview: 10/06/2020 Bile acids and LFT's pend. SW with care elsewhere, antepart um 09/30/2020 01/30/2021 Overview: 09/30/2020 She is transferring care from Dr. Doran in [place]. She is 23 weeks 2 days by dates. She states baby has been active. Patient signed a release form to obtain her medical records from Dr. Doran's office. TKRN Abnormal ultrasonic finding on screeni ng of mother 09/30/2020 12/05/2021 Overview: - pyelectasis on US in 09/30/2020 -Resolved on 25 weeks scan associated with use of clomiphene, ant epartum 09/30/2020 12/05/2021 documented as of this encounter (statuses as of 12/30/2021) [facility] History of Past illness Narrative* Problem Noted Date Resolved Date Indication for care in labor or delivery 021 12/05/2021 Overview: -IAL -GBS unknown, term -Pitocin prn -Epidural in -SROM ~1600 Insufficient antepartum care 01/30/2021 Overview: -Transfer of care from Dr. Doran -No GBS swab done -Missed appointments -Social work consult Pruritus 01/30/2021 12/05/2021 Overview: -LFTs and bile acids ordered but never drawn Antepartum anemia 10/22/2020 12/05/2021 Overview: -Hgb 10.7 -Endorses taking oral iron Ultrasound recheck of pyelectasis, antepar patrick 10/11/2020 11/23/2020 Overview: 11/23/20 - resolved! - Marya Chester MD 10/11/2020 Bilateral mild pyelectasis noted on previous ultrasounds. Anatomy US ordered at time of NOB. SW Pruritus of , antepartum 10/06/2020 01/30/2021 Overview: 10/06/2020 Bile acids and LFT's pend. SW with care elsewhere, antepart um 09/30/2020 01/30/2021 Overview: 09/30/2020 She is transferring care from Dr. Doran in [place]. She is 23 weeks 2 days by dates. She states baby has been active. Patient signed a release form to obtain her medical records from Dr. Doran's office. TKRN Abnormal ultrasonic finding on screeni ng of mother 09/30/2020 12/05/2021 Overview: - pyelectasis on US in 09/30/2020 -Resolved on 25 weeks scan associated with use of clomiphene, ant epartum 09/30/2020 12/05/2021 documented as of this encounter (statuses as of 01/01/2022) [facility] History of Past illness Narrative* Problem Noted Date Resolved Date Indication for care in labor or delivery 021 12/05/2021 Overview: -IAL -GBS unknown, term -Pitocin prn -Epidural in -SROM ~1600 Insufficient antepartum care 01/30/2021 Overview: -Transfer of care from Dr. Doran -No GBS swab done -Missed appointments -Social work consult Pruritus 01/30/2021 12/05/2021 Overview: -LFTs and bile acids ordered but never drawn Antepartum anemia 10/22/2020 12/05/2021 Overview: -Hgb 10.7 -Endorses taking oral iron Ultrasound recheck of pyelectasis, antepar patrick 10/11/2020 11/23/2020 Overview: 11/23/20 - resolved! - Marya Chester MD 10/11/2020 Bilateral mild pyelectasis noted on previous ultrasounds. Anatomy US ordered at time of NOB. SW Pruritus of , antepartum 10/06/2020 01/30/2021 Overview: 10/06/2020 Bile acids and LFT's pend. SW with care elsewhere, antepart um 09/30/2020 01/30/2021 Overview: 09/30/2020 She is transferring care from Dr. Doran in [place]. She is 23 weeks 2 days by dates. She states baby has been active. Patient signed a release form to obtain her medical records from Dr. Doran's office. TKRN Abnormal ultrasonic finding on screeni ng of mother 09/30/2020 12/05/2021 Overview: - pyelectasis on US in 09/30/2020 -Resolved on 25 weeks scan associated with use of clomiphene, ant epartum 09/30/2020 12/05/2021 documented as of this encounter (statuses as of 01/06/2022) [facility] of Past illness Narrative* Problem Noted Date Resolved Date Indication for care in labor or delivery 021 12/05/2021 Overview: -IAL -GBS unknown, term -Pitocin prn -Epidural in -SROM ~1600 Insufficient antepartum care 01/30/2021 Overview: -Transfer of care from Dr. Doran -No GBS swab done -Missed appointments -Social work consult Pruritus 01/30/2021 12/05/2021 Overview: -LFTs and bile acids ordered but never drawn Antepartum anemia 10/22/2020 12/05/2021 Overview: -Hgb 10.7 -Endorses taking oral iron Ultrasound recheck of pyelectasis, antepar patrick 10/11/2020 11/23/2020 Overview: 11/23/20 - resolved! - Marya Chester MD 10/11/2020 Bilateral mild pyelectasis noted on previous ultrasounds. Anatomy US ordered at time of NOB. SW Pruritus of , antepartum 10/06/2020 01/30/2021 Overview: 10/06/2020 Bile acids and LFT's pend. SW with care elsewhere, antepart um 09/30/2020 01/30/2021 Overview: 09/30/2020 She is transferring care from Dr. Doran in [place]. She is 23 weeks 2 days by dates. She states baby has been active. Patient signed a release form to obtain her medical records from Dr. Doran's office. TKRN Abnormal ultrasonic finding on screeni ng of mother 09/30/2020 12/05/2021 Overview: - pyelectasis on US in 09/30/2020 -Resolved on 25 weeks scan associated with use of clomiphene, ant epartum 09/30/2020 12/05/2021 documented as of this encounter (statuses as of 01/06/2022) [facility] of Past illness Narrative* Problem Noted Date Resolved Date Indication for care in labor or delivery 021 12/05/2021 Overview: -IAL -GBS unknown, term -Pitocin prn -Epidural in -SROM ~1600 Insufficient antepartum care 01/30/2021 Overview: -Transfer of care from Dr. Doran -No GBS swab done -Missed appointments -Social work consult Pruritus 01/30/2021 12/05/2021 Overview: -LFTs and bile acids ordered but never drawn Antepartum anemia 10/22/2020 12/05/2021 Overview: -Hgb 10.7 -Endorses taking oral iron Ultrasound recheck of pyelectasis, antepar patrick 10/11/2020 11/23/2020 Overview: 11/23/20 - resolved! - Marya Chester MD 10/11/2020 Bilateral mild pyelectasis noted on previous ultrasounds. Anatomy US ordered at time of NOB. SW Pruritus of , antepartum 10/06/2020 01/30/2021 Overview: 10/06/2020 Bile acids and LFT's pend. SW with care elsewhere, antepart um 09/30/2020 01/30/2021 Overview: 09/30/2020 She is transferring care from Dr. Doran in [place]. She is 23 weeks 2 days by dates. She states baby has been active. Patient signed a release form to obtain her medical records from Dr. Doran's office. TKRN Abnormal ultrasonic finding on screeni ng of mother 09/30/2020 12/05/2021 Overview: - pyelectasis on US in 09/30/2020 -Resolved on 25 weeks scan associated with use of clomiphene, ant epartum 09/30/2020 12/05/2021 documented as of this encounter (statuses as of 01/31/2022) [facility] History of Past illness Narrative* Problem Noted Date Resolved Date Indication for care in labor or delivery 021 12/05/2021 Overview: -IAL -GBS unknown, term -Pitocin prn -Epidural in -SROM ~1600 Insufficient antepartum care 01/30/2021 Overview: -Transfer of care from Dr. Doran -No GBS swab done -Missed appointments -Social work consult Pruritus 01/30/2021 12/05/2021 Overview: -LFTs and bile acids ordered but never drawn Antepartum anemia 10/22/2020 12/05/2021 Overview: -Hgb 10.7 -Endorses taking oral iron Ultrasound recheck of pyelectasis, antepar patrick 10/11/2020 11/23/2020 Overview: 11/23/20 - resolved! - Marya Chester MD 10/11/2020 Bilateral mild pyelectasis noted on previous ultrasounds. Anatomy US ordered at time of NOB. SW Pruritus of , antepartum 10/06/2020 01/30/2021 Overview: 10/06/2020 Bile acids and LFT's pend. SW with care elsewhere, antepart um 09/30/2020 01/30/2021 Overview: 09/30/2020 She is transferring care from Dr. Doran in [place]. She is 23 weeks 2 days by dates. She states baby has been active. Patient signed a release form to obtain her medical records from Dr. Doran's office. TKRN Abnormal ultrasonic finding on screeni ng of mother 09/30/2020 12/05/2021 Overview: - pyelectasis on US in 09/30/2020 -Resolved on 25 weeks scan associated with use of clomiphene, ant epartum 09/30/2020 12/05/2021 documented as of this encounter (statuses as of 02/07/2022) [facility] of Past illness Narrative* Problem Noted Date Resolved Date Indication for care in labor or delivery 021 12/05/2021 Overview: -IAL -GBS unknown, term -Pitocin prn -Epidural in -SROM ~1600 Insufficient antepartum care 01/30/2021 Overview: -Transfer of care from Dr. Doran -No GBS swab done -Missed appointments -Social work consult Pruritus 01/30/2021 12/05/2021 Overview: -LFTs and bile acids ordered but never drawn Antepartum anemia 10/22/2020 12/05/2021 Overview: -Hgb 10.7 -Endorses taking oral iron Ultrasound recheck of pyelectasis, antepar patrick 10/11/2020 11/23/2020 Overview: 11/23/20 - resolved! - Marya Chester MD 10/11/2020 Bilateral mild pyelectasis noted on previous ultrasounds. Anatomy US ordered at time of NOB. SW Pruritus of , antepartum 10/06/2020 01/30/2021 Overview: 10/06/2020 Bile acids and LFT's pend. SW with care elsewhere, antepart um 09/30/2020 01/30/2021 Overview: 09/30/2020 She is transferring care from Dr. Doran in [place]. She is 23 weeks 2 days by dates. She states baby has been active. Patient signed a release form to obtain her medical records from Dr. Doran's office. TKRN Abnormal ultrasonic finding on screeni ng of mother 09/30/2020 12/05/2021 Overview: - pyelectasis on US in 09/30/2020 -Resolved on 25 weeks scan associated with use of clomiphene, ant epartum 09/30/2020 12/05/2021 documented as of this encounter (statuses as of 02/20/2022) [facility] History of Past illness Narrative* Problem Noted Date Resolved Date Indication for care in labor or delivery 021 12/05/2021 Overview: -IAL -GBS unknown, term -Pitocin prn -Epidural in -SROM ~1600 Insufficient antepartum care 01/30/2021 Overview: -Transfer of care from Dr. Doran -No GBS swab done -Missed appointments -Social work consult Pruritus 01/30/2021 12/05/2021 Overview: -LFTs and bile acids ordered but never drawn Antepartum anemia 10/22/2020 12/05/2021 Overview: -Hgb 10.7 -Endorses taking oral iron Ultrasound recheck of pyelectasis, antepar patrick 10/11/2020 11/23/2020 Overview: 11/23/20 - resolved! - Marya Chester MD 10/11/2020 Bilateral mild pyelectasis noted on previous ultrasounds. Anatomy US ordered at time of NOB. SW Pruritus of , antepartum 10/06/2020 01/30/2021 Overview: 10/06/2020 Bile acids and LFT's pend. SW with care elsewhere, antepart um 09/30/2020 01/30/2021 Overview: 09/30/2020 She is transferring care from Dr. Doran in [place]. She is 23 weeks 2 days by dates. She states baby has been active. Patient signed a release form to obtain her medical records from Dr. Doran's office. TKRN Abnormal ultrasonic finding on screeni ng of mother 09/30/2020 12/05/2021 Overview: - pyelectasis on US in 09/30/2020 -Resolved on 25 weeks scan associated with use of clomiphene, ant epartum 09/30/2020 12/05/2021 documented as of this encounter (statuses as of 02/27/2022) [facility] History of Past illness Narrative* Problem Noted Date Resolved Date Indication for care in labor or delivery 021 12/05/2021 Overview: -IAL -GBS unknown, term -Pitocin prn -Epidural in -SROM ~1600 Insufficient antepartum care 01/30/2021 Overview: -Transfer of care from Dr. Doran -No GBS swab done -Missed appointments -Social work consult Pruritus 01/30/2021 12/05/2021 Overview: -LFTs and bile acids ordered but never drawn Antepartum anemia 10/22/2020 12/05/2021 Overview: -Hgb 10.7 -Endorses taking oral iron Ultrasound recheck of pyelectasis, antepar patrick 10/11/2020 11/23/2020 Overview: 9/7/21 - resolved! - Marya Chester MD 10/11/2020 Bilateral mild pyelectasis noted on previous ultrasounds. Anatomy US ordered at time of NOB. SW Pruritus of , antepartum 10/06/2020 01/30/2021 Overview: 10/06/2020 Bile acids and LFT's pend. SW with care elsewhere, antepart um 09/30/2020 01/30/2021 Overview: 09/30/2020 She is transferring care from Dr. Doran in [place]. She is 23 weeks 2 days by dates. She states baby has been active. Patient signed a release form to obtain her medical records from Dr. Doran's office. TKRN Abnormal ultrasonic finding on screeni ng of mother 09/30/2020 12/05/2021 Overview: - pyelectasis on US in 09/30/2020 -Resolved on 25 weeks scan associated with use of clomiphene, ant epartum 09/30/2020 12/05/2021 documented as of this encounter (statuses as of 02/27/2022) [facility]11-14-2021 History of Past illness Narrative* Problem Noted Date Resolved Date Indication for care in labor or delivery 021 12/05/2021 Overview: -IAL -GBS unknown, term -Pitocin prn -Epidural in -SROM ~1600 Insufficient antepartum care 01/30/2021 Overview: -Transfer of care from Dr. Doran -No GBS swab done -Missed appointments -Social work consult Pruritus 01/30/2021 12/05/2021 Overview: -LFTs and bile acids ordered but never drawn Antepartum anemia 10/22/2020 12/05/2021 Overview: -Hgb 10.7 -Endorses taking oral iron Ultrasound recheck of pyelectasis, antepar patrick 10/11/2020 11/23/2020 Overview: 11/23/20 - resolved! - Marya Chester MD 10/11/2020 Bilateral mild pyelectasis noted on previous ultrasounds. Anatomy US ordered at time of NOB. SW Pruritus of , antepartum 10/06/2020 01/30/2021 Overview: 10/06/2020 Bile acids and LFT's pend. SW with care elsewhere, antepart um 09/30/2020 01/30/2021 Overview: 09/30/2020 She is transferring care from Dr. Doran in [place]. She is 23 weeks 2 days by dates. She states baby has been active. Patient signed a release form to obtain her medical records from Dr. Doran's office. TKRN Abnormal ultrasonic finding on screeni ng of mother 09/30/2020 12/05/2021 Overview: - pyelectasis on US in 09/30/2020 -Resolved on 25 weeks scan associated with use of clomiphene, ant epartum 09/30/2020 12/05/2021 documented as of this encounter (statuses as of 02/27/2022) [facility]11-14-2021 History of Past illness Narrative* Problem Noted Date Resolved Date Indication for care in labor or delivery 021 12/05/2021 Overview: -IAL -GBS unknown, term -Pitocin prn -Epidural in -SROM ~1600 Insufficient antepartum care 01/30/2021 Overview: -Transfer of care from Dr. Doran -No GBS swab done -Missed appointments -Social work consult Pruritus 01/30/2021 12/05/2021 Overview: -LFTs and bile acids ordered but never drawn Antepartum anemia 10/22/2020 12/05/2021 Overview: -Hgb 10.7 -Endorses taking oral iron Ultrasound recheck of pyelectasis, antepar patrick 10/11/2020 11/23/2020 Overview: 11/23/20 - resolved! - Marya Chester MD 10/11/2020 Bilateral mild pyelectasis noted on previous ultrasounds. Anatomy US ordered at time of NOB. SW Pruritus of , antepartum 10/06/2020 01/30/2021 Overview: 10/06/2020 Bile acids and LFT's pend. SW with care elsewhere, antepart um 09/30/2020 01/30/2021 Overview: 09/30/2020 She is transferring care from Dr. Doran in [place]. She is 23 weeks 2 days by dates. She states baby has been active. Patient signed a release form to obtain her medical records from Dr. Doran's office. TKRN Abnormal ultrasonic finding on screeni ng of mother 09/30/2020 12/05/2021 Overview: - pyelectasis on US in 09/30/2020 -Resolved on 25 weeks scan associated with use of clomiphene, ant epartum 09/30/2020 12/05/2021 documented as of this encounter (statuses as of 04/03/2022) [facility]11-14-2021 History of Past illness Narrative* Problem Noted Date Resolved Date Indication for care in labor or delivery 021 12/05/2021 Overview: -IAL -GBS unknown, term -Pitocin prn -Epidural in -SROM ~1600 Insufficient antepartum care 01/30/2021 Overview: -Transfer of care from Dr. Doran -No GBS swab done -Missed appointments -Social work consult Pruritus 01/30/2021 12/05/2021 Overview: -LFTs and bile acids ordered but never drawn Antepartum anemia 10/22/2020 12/05/2021 Overview: -Hgb 10.7 -Endorses taking oral iron Ultrasound recheck of pyelectasis, antepar patrick 10/11/2020 11/23/2020 Overview: 11/23/20 - resolved! - Marya Chester MD 10/11/2020 Bilateral mild pyelectasis noted on previous ultrasounds. Anatomy US ordered at time of NOB. SW Pruritus of , antepartum 10/06/2020 01/30/2021 Overview: 10/06/2020 Bile acids and LFT's pend. SW with care elsewhere, antepart um 09/30/2020 01/30/2021 Overview: 09/30/2020 She is transferring care from Dr. Doran in [place]. She is 23 weeks 2 days by dates. She states baby has been active. Patient signed a release form to obtain her medical records from Dr. Doran's office. TKRN Abnormal ultrasonic finding on screeni ng of mother 09/30/2020 12/05/2021 Overview: - pyelectasis on US in 09/30/2020 -Resolved on 25 weeks scan associated with use of clomiphene, ant epartum 09/30/2020 12/05/2021 documented as of this encounter (statuses as of 04/10/2022) [facility]11-14-2021 History of Past illness Narrative* Problem Noted Date Resolved Date Indication for care in labor or delivery 021 12/05/2021 Overview: -IAL -GBS unknown, term -Pitocin prn -Epidural in -SROM ~1600 Insufficient antepartum care 01/30/2021 Overview: -Transfer of care from Dr. Doran -No GBS swab done -Missed appointments -Social work consult Pruritus 01/30/2021 12/05/2021 Overview: -LFTs and bile acids ordered but never drawn Antepartum anemia 10/22/2020 12/05/2021 Overview: -Hgb 10.7 -Endorses taking oral iron Ultrasound recheck of pyelectasis, antepar patrick 10/11/2020 11/23/2020 Overview: 11/23/20 - resolved! - Marya Chester MD 10/11/2020 Bilateral mild pyelectasis noted on previous ultrasounds. Anatomy US ordered at time of NOB. SW Pruritus of , antepartum 10/06/2020 01/30/2021 Overview: 10/06/2020 Bile acids and LFT's pend. SW with care elsewhere, antepart um 09/30/2020 01/30/2021 Overview: 09/30/2020 She is transferring care from Dr. Doran in [place]. She is 23 weeks 2 days by dates. She states baby has been active. Patient signed a release form to obtain her medical records from Dr. Doran's office. TKRN Abnormal ultrasonic finding on screeni ng of mother 09/30/2020 12/05/2021 Overview: - pyelectasis on US in 09/30/2020 -Resolved on 25 weeks scan associated with use of clomiphene, ant epartum 09/30/2020 12/05/2021 documented as of this encounter (statuses as of 04/11/2022) [facility]11-14-2021 History of Past illness Narrative* Problem Noted Date Resolved Date Indication for care in labor or delivery 021 12/05/2021 Overview: -IAL -GBS unknown, term -Pitocin prn -Epidural in -SROM ~1600 Insufficient antepartum care 01/30/2021 Overview: -Transfer of care from Dr. Doran -No GBS swab done -Missed appointments -Social work consult Pruritus 01/30/2021 12/05/2021 Overview: -LFTs and bile acids ordered but never drawn Antepartum anemia 10/22/2020 12/05/2021 Overview: -Hgb 10.7 -Endorses taking oral iron Ultrasound recheck of pyelectasis, antepar patrick 10/11/2020 11/23/2020 Overview: 11/23/20 - resolved! - Marya Chester MD 10/11/2020 Bilateral mild pyelectasis noted on previous ultrasounds. Anatomy US ordered at time of NOB. SW Pruritus of , antepartum 10/06/2020 01/30/2021 Overview: 10/06/2020 Bile acids and LFT's pend. SW with care elsewhere, antepart um 09/30/2020 01/30/2021 Overview: 09/30/2020 She is transferring care from Dr. Doran in [place]. She is 23 weeks 2 days by dates. She states baby has been active. Patient signed a release form to obtain her medical records from Dr. Doran's office. TKRN Abnormal ultrasonic finding on screeni ng of mother 09/30/2020 12/05/2021 Overview: - pyelectasis on US in 09/30/2020 -Resolved on 25 weeks scan associated with use of clomiphene, ant epartum 09/30/2020 12/05/2021 documented as of this encounter (statuses as of 04/25/2022) [facility]11-14-2021 History of Past illness Narrative* Problem Noted Date Resolved Date Indication for care in labor or delivery 021 12/05/2021 Overview: -IAL -GBS unknown, term -Pitocin prn -Epidural in -SROM ~1600 Insufficient antepartum care 01/30/2021 Overview: -Transfer of care from Dr. Doran -No GBS swab done -Missed appointments -Social work consult Pruritus 01/30/2021 12/05/2021 Overview: -LFTs and bile acids ordered but never drawn Antepartum anemia 10/22/2020 12/05/2021 Overview: -Hgb 10.7 -Endorses taking oral iron Ultrasound recheck of pyelectasis, antepar patrick 10/11/2020 11/23/2020 Overview: 11/23/20 - resolved! - Marya Chester MD 10/11/2020 Bilateral mild pyelectasis noted on previous ultrasounds. Anatomy US ordered at time of NOB. SW Pruritus of , antepartum 10/06/2020 01/30/2021 Overview: 10/06/2020 Bile acids and LFT's pend. SW with care elsewhere, antepart um 09/30/2020 01/30/2021 Overview: 09/30/2020 She is transferring care from Dr. Doran in [place]. She is 23 weeks 2 days by dates. She states baby has been active. Patient signed a release form to obtain her medical records from Dr. Doran's office. TKRN Abnormal ultrasonic finding on screeni ng of mother 09/30/2020 12/05/2021 Overview: - pyelectasis on US in 09/30/2020 -Resolved on 25 weeks scan associated with use of clomiphene, ant epartum 09/30/2020 12/05/2021 documented as of this encounter (statuses as of 04/27/2022) [facility]11-14-2021 History of Past illness Narrative* Problem Noted Date Resolved Date Indication for care in labor or delivery 021 12/05/2021 Overview: -IAL -GBS unknown, term -Pitocin prn -Epidural in -SROM ~1600 Insufficient antepartum care 01/30/2021 Overview: -Transfer of care from Dr. Doran -No GBS swab done -Missed appointments -Social work consult Pruritus 01/30/2021 12/05/2021 Overview: -LFTs and bile acids ordered but never drawn Antepartum anemia 10/22/2020 12/05/2021 Overview: -Hgb 10.7 -Endorses taking oral iron Ultrasound recheck of pyelectasis, antepar patrick 10/11/2020 11/23/2020 Overview: 11/23/20 - resolved! - Marya Chester MD 10/11/2020 Bilateral mild pyelectasis noted on previous ultrasounds. Anatomy US ordered at time of NOB. SW Pruritus of , antepartum 10/06/2020 01/30/2021 Overview: 10/06/2020 Bile acids and LFT's pend. SW with care elsewhere, antepart um 09/30/2020 01/30/2021 Overview: 09/30/2020 She is transferring care from Dr. Doran in [place]. She is 23 weeks 2 days by dates. She states baby has been active. Patient signed a release form to obtain her medical records from Dr. Doran's office. TKRN Abnormal ultrasonic finding on screeni ng of mother 09/30/2020 12/05/2021 Overview: - pyelectasis on US in 09/30/2020 -Resolved on 25 weeks scan associated with use of clomiphene, ant epartum 09/30/2020 12/05/2021 documented as of this encounter (statuses as of 06/11/2022) [facility]11-14-2021 History of Past illness Narrative* Problem Noted Date Resolved Date Indication for care in labor or delivery 021 12/05/2021 Overview: -IAL -GBS unknown, term -Pitocin prn -Epidural in -SROM ~1600 Insufficient antepartum care 01/30/2021 Overview: -Transfer of care from Dr. Doran -No GBS swab done -Missed appointments -Social work consult Pruritus 01/30/2021 12/05/2021 Overview: -LFTs and bile acids ordered but never drawn Antepartum anemia 10/22/2020 12/05/2021 Overview: -Hgb 10.7 -Endorses taking oral iron Ultrasound recheck of pyelectasis, antepar patrick 10/11/2020 11/23/2020 Overview: 11/23/20 - resolved! - Marya Chester MD 10/11/2020 Bilateral mild pyelectasis noted on previous ultrasounds. Anatomy US ordered at time of NOB. SW Pruritus of , antepartum 10/06/2020 01/30/2021 Overview: 10/06/2020 Bile acids and LFT's pend. SW with care elsewhere, antepart um 09/30/2020 01/30/2021 Overview: 09/30/2020 She is transferring care from Dr. Doran in [place]. She is 23 weeks 2 days by dates. She states baby has been active. Patient signed a release form to obtain her medical records from Dr. Doran's office. TKRN Abnormal ultrasonic finding on screeni ng of mother 09/30/2020 12/05/2021 Overview: - pyelectasis on US in 09/30/2020 -Resolved on 25 weeks scan associated with use of clomiphene, ant epartum 09/30/2020 12/05/2021 documented as of this encounter (statuses as of 06/16/2022) [facility]11-14-2021 History of Past illness Narrative* Problem Noted Date Resolved Date Indication for care in labor or delivery 021 12/05/2021 Overview: -IAL -GBS unknown, term -Pitocin prn -Epidural in -SROM ~1600 Insufficient antepartum care 01/30/2021 Overview: -Transfer of care from Dr. Doran -No GBS swab done -Missed appointments -Social work consult Pruritus 01/30/2021 12/05/2021 Overview: -LFTs and bile acids ordered but never drawn Antepartum anemia 10/22/2020 12/05/2021 Overview: -Hgb 10.7 -Endorses taking oral iron Ultrasound recheck of pyelectasis, antepar patrick 10/11/2020 11/23/2020 Overview: 11/23/20 - resolved! - Marya Chester MD 10/11/2020 Bilateral mild pyelectasis noted on previous ultrasounds. Anatomy US ordered at time of NOB. SW Pruritus of , antepartum 10/06/2020 01/30/2021 Overview: 10/06/2020 Bile acids and LFT's pend. SW with care elsewhere, antepart um 09/30/2020 01/30/2021 Overview: 09/30/2020 She is transferring care from Dr. Doran in [place]. She is 23 weeks 2 days by dates. She states baby has been active. Patient signed a release form to obtain her medical records from Dr. Doran's office. TKRN Abnormal ultrasonic finding on screeni ng of mother 09/30/2020 12/05/2021 Overview: - pyelectasis on US in 09/30/2020 -Resolved on 25 weeks scan associated with use of clomiphene, ant epartum 09/30/2020 12/05/2021 documented as of this encounter (statuses as of 06/22/2022) [facility]11-14-2021 History of Past illness Narrative* Problem Noted Date Resolved Date Indication for care in labor or delivery 021 12/05/2021 Overview: -IAL -GBS unknown, term -Pitocin prn -Epidural in -SROM ~1600 Insufficient antepartum care 01/30/2021 Overview: -Transfer of care from Dr. Doran -No GBS swab done -Missed appointments -Social work consult Pruritus 01/30/2021 12/05/2021 Overview: -LFTs and bile acids ordered but never drawn Antepartum anemia 10/22/2020 12/05/2021 Overview: -Hgb 10.7 -Endorses taking oral iron Ultrasound recheck of pyelectasis, antepar patrick 10/11/2020 11/23/2020 Overview: 11/23/20 - resolved! - Marya Chester MD 10/11/2020 Bilateral mild pyelectasis noted on previous ultrasounds. Anatomy US ordered at time of NOB. SW Pruritus of , antepartum 10/06/2020 01/30/2021 Overview: 10/06/2020 Bile acids and LFT's pend. SW with care elsewhere, antepart um 09/30/2020 01/30/2021 Overview: 09/30/2020 She is transferring care from Dr. Doran in [place]. She is 23 weeks 2 days by dates. She states baby has been active. Patient signed a release form to obtain her medical records from Dr. Doran's office. TKRN Abnormal ultrasonic finding on screeni ng of mother 09/30/2020 12/05/2021 Overview: - pyelectasis on US in 09/30/2020 -Resolved on 25 weeks scan associated with use of clomiphene, ant epartum 09/30/2020 12/05/2021 documented as of this encounter (statuses as of 06/23/2022) [facility]11-14-2021 History of Past illness Narrative* Problem Noted Date Resolved Date Indication for care in labor or delivery 021 12/05/2021 Overview: -IAL -GBS unknown, term -Pitocin prn -Epidural in -SROM ~1600 Insufficient antepartum care 01/30/2021 Overview: -Transfer of care from Dr. Doran -No GBS swab done -Missed appointments -Social work consult Pruritus 01/30/2021 12/05/2021 Overview: -LFTs and bile acids ordered but never drawn Antepartum anemia 10/22/2020 12/05/2021 Overview: -Hgb 10.7 -Endorses taking oral iron Ultrasound recheck of pyelectasis, antepar patrick 10/11/2020 11/23/2020 Overview: 11/23/20 - resolved! - Marya Chester MD 10/11/2020 Bilateral mild pyelectasis noted on previous ultrasounds. Anatomy US ordered at time of NOB. SW Pruritus of , antepartum 10/06/2020 01/30/2021 Overview: 10/06/2020 Bile acids and LFT's pend. SW with care elsewhere, antepart um 09/30/2020 01/30/2021 Overview: 09/30/2020 She is transferring care from Dr. Doran in [place]. She is 23 weeks 2 days by dates. She states baby has been active. Patient signed a release form to obtain her medical records from Dr. Doran's office. TKRN Abnormal ultrasonic finding on screeni ng of mother 09/30/2020 12/05/2021 Overview: - pyelectasis on US in 09/30/2020 -Resolved on 25 weeks scan associated with use of clomiphene, ant epartum 09/30/2020 12/05/2021 documented as of this encounter (statuses as of 06/30/2022) [facility]11-14-2021 History of Past illness Narrative* Problem Noted Date Resolved Date Indication for care in labor or delivery 021 12/05/2021 Overview: -IAL -GBS unknown, term -Pitocin prn -Epidural in -SROM ~1600 Insufficient antepartum care 01/30/2021 Overview: -Transfer of care from Dr. Doran -No GBS swab done -Missed appointments -Social work consult Pruritus 01/30/2021 12/05/2021 Overview: -LFTs and bile acids ordered but never drawn Antepartum anemia 10/22/2020 12/05/2021 Overview: -Hgb 10.7 -Endorses taking oral iron Ultrasound recheck of pyelectasis, antepar patrick 10/11/2020 11/23/2020 Overview: 11/23/20 - resolved! - Marya Chester MD 10/11/2020 Bilateral mild pyelectasis noted on previous ultrasounds. Anatomy US ordered at time of NOB. SW Pruritus of , antepartum 10/06/2020 01/30/2021 Overview: 10/06/2020 Bile acids and LFT's pend. SW with care elsewhere, antepart um 09/30/2020 01/30/2021 Overview: 09/30/2020 She is transferring care from Dr. Doran in [place]. She is 23 weeks 2 days by dates. She states baby has been active. Patient signed a release form to obtain her medical records from Dr. Doran's office. TKRN Abnormal ultrasonic finding on screeni ng of mother 09/30/2020 12/05/2021 Overview: - pyelectasis on US in 09/30/2020 -Resolved on 25 weeks scan associated with use of clomiphene, ant epartum 09/30/2020 12/05/2021 documented as of this encounter (statuses as of 07/07/2022) [facility]11-14-2021 History of Past illness Narrative* Problem Noted Date Resolved Date Indication for care in labor or delivery 021 12/05/2021 Overview: -IAL -GBS unknown, term -Pitocin prn -Epidural in -SROM ~1600 Insufficient antepartum care 01/30/2021 Overview: -Transfer of care from Dr. Doran -No GBS swab done -Missed appointments -Social work consult Pruritus 01/30/2021 12/05/2021 Overview: -LFTs and bile acids ordered but never drawn Antepartum anemia 10/22/2020 12/05/2021 Overview: -Hgb 10.7 -Endorses taking oral iron Ultrasound recheck of pyelectasis, antepar patrick 10/11/2020 11/23/2020 Overview: 11/23/20 - resolved! - Marya Chester MD 10/11/2020 Bilateral mild pyelectasis noted on previous ultrasounds. Anatomy US ordered at time of NOB. SW Pruritus of , antepartum 10/06/2020 01/30/2021 Overview: 10/06/2020 Bile acids and LFT's pend. SW with care elsewhere, antepart um 09/30/2020 01/30/2021 Overview: 09/30/2020 She is transferring care from Dr. Doran in [place]. She is 23 weeks 2 days by dates. She states baby has been active. Patient signed a release form to obtain her medical records from Dr. Doran's office. TKRN Abnormal ultrasonic finding on screeni ng of mother 09/30/2020 12/05/2021 Overview: - pyelectasis on US in 09/30/2020 -Resolved on 25 weeks scan associated with use of clomiphene, ant epartum 09/30/2020 12/05/2021 documented as of this encounter (statuses as of 07/10/2022) [facility]11-14-2021 History of Past illness Narrative* Problem Noted Date Resolved Date Indication for care in labor or delivery 021 12/05/2021 Overview: -IAL -GBS unknown, term -Pitocin prn -Epidural in -SROM ~1600 Insufficient antepartum care 01/30/2021 Overview: -Transfer of care from Dr. Doran -No GBS swab done -Missed appointments -Social work consult Pruritus 01/30/2021 12/05/2021 Overview: -LFTs and bile acids ordered but never drawn Antepartum anemia 10/22/2020 12/05/2021 Overview: -Hgb 10.7 -Endorses taking oral iron Ultrasound recheck of pyelectasis, antepar patrick 10/11/2020 11/23/2020 Overview: 11/23/20 - resolved! - Marya Chester MD 10/11/2020 Bilateral mild pyelectasis noted on previous ultrasounds. Anatomy US ordered at time of NOB. SW Pruritus of , antepartum 10/06/2020 01/30/2021 Overview: 10/06/2020 Bile acids and LFT's pend. SW with care elsewhere, antepart um 09/30/2020 01/30/2021 Overview: 09/30/2020 She is transferring care from Dr. Doran in [place]. She is 23 weeks 2 days by dates. She states baby has been active. Patient signed a release form to obtain her medical records from Dr. Doran's office. TKRN Abnormal ultrasonic finding on screeni ng of mother 09/30/2020 12/05/2021 Overview: - pyelectasis on US in 09/30/2020 -Resolved on 25 weeks scan associated with use of clomiphene, ant epartum 09/30/2020 12/05/2021 documented as of this encounter (statuses as of 07/18/2022) [facility]11-14-2021 History of Past illness Narrative* Problem Noted Date Resolved Date Indication for care in labor or delivery 021 12/05/2021 Overview: -IAL -GBS unknown, term -Pitocin prn -Epidural in -SROM ~1600 Insufficient antepartum care 01/30/2021 Overview: -Transfer of care from Dr. Doran -No GBS swab done -Missed appointments -Social work consult Pruritus 01/30/2021 12/05/2021 Overview: -LFTs and bile acids ordered but never drawn Antepartum anemia 10/22/2020 12/05/2021 Overview: -Hgb 10.7 -Endorses taking oral iron Ultrasound recheck of pyelectasis, antepar patrick 10/11/2020 11/23/2020 Overview: 11/23/20 - resolved! - Marya Chester MD 10/11/2020 Bilateral mild pyelectasis noted on previous ultrasounds. Anatomy US ordered at time of NOB. SW Pruritus of , antepartum 10/06/2020 01/30/2021 Overview: 10/06/2020 Bile acids and LFT's pend. SW with care elsewhere, antepart um 09/30/2020 01/30/2021 Overview: 09/30/2020 She is transferring care from Dr. Doran in [place]. She is 23 weeks 2 days by dates. She states baby has been active. Patient signed a release form to obtain her medical records from Dr. Doran's office. TKRN Abnormal ultrasonic finding on screeni ng of mother 09/30/2020 12/05/2021 Overview: - pyelectasis on US in 09/30/2020 -Resolved on 25 weeks scan associated with use of clomiphene, ant epartum 09/30/2020 12/05/2021 documented as of this encounter (statuses as of 09/01/2022) [facility]11-14-[facility] History of Past illness Narrative* Problem Noted Date Resolved Date Indication for care in labor or delivery 021 12/05/2021 Overview: -IAL -GBS unknown, term -Pitocin prn -Epidural in -SROM ~1600 Insufficient antepartum care 01/30/2021 Overview: -Transfer of care from Dr. Doran -No GBS swab done -Missed appointments -Social work consult Pruritus 01/30/2021 12/05/2021 Overview: -LFTs and bile acids ordered but never drawn Antepartum anemia 10/22/2020 12/05/2021 Overview: -Hgb 10.7 -Endorses taking oral iron Ultrasound recheck of pyelectasis, antepar patrick 10/11/2020 11/23/2020 Overview: 11/23/20 - resolved! - Marya Chester MD 10/11/2020 Bilateral mild pyelectasis noted on previous ultrasounds. Anatomy US ordered at time of NOB. SW Pruritus of , antepartum 10/06/2020 01/30/2021 Overview: 10/06/2020 Bile acids and LFT's pend. SW with care elsewhere, antepart um 09/30/2020 01/30/2021 Overview: 09/30/2020 She is transferring care from Dr. Doran in [place]. She is 23 weeks 2 days by dates. She states baby has been active. Patient signed a release form to obtain her medical records from Dr. Doran's office. TKRN Abnormal ultrasonic finding on screeni ng of mother 09/30/2020 12/05/2021 Overview: - pyelectasis on US in 09/30/2020 -Resolved on 25 weeks scan associated with use of clomiphene, ant epartum 09/30/2020 12/05/2021 documented as of this encounter (statuses as of 09/07/2022) [facility] History of Past illness Narrative* Problem Noted Date Diagnosed Date Resolved Date Indication for care in labor or delivery 01/30/2021 12/05/2021 Overview: -IAL -GBS unknown, term -Pitocin prn -Epidural in -SROM ~1600 Insufficient antepartum care 01/30/2021 12/05/2021 Overview: -Transfer of care from Dr. Doran -No GBS swab done -Missed appointments -Social work consult Pruritus 01/30/2021 12/05/2021 Overview: -LFTs and bile acids ordered but never drawn Antepartum anemia 10/22/2020 12/05/2021 Overview: -Hgb 10.7 -Endorses taking oral iron Ultrasound recheck of pyelectasis, antepartum 10/11/2020 11/23/2020 Overview: 11/23/20 - resolved! - Marya Chester MD 10/11/2020 Bilateral mild pyelectasis noted on previous ultrasounds. Anatomy US ordered at time of NOB. SW Pruritus of , antepartum 10/06/2020 01/30/2021 Overview: 10/06/2020 Bile acids and LFT's pend. SW with care elsewhere, antepartum 09/30/2020 01/30/2021 Overview: 09/30/2020 She is transferring care from Dr. Doran in [place]. She is 23 weeks 2 days by dates. She states baby has been active. Patient signed a release form to obtain her medical records from Dr. Doran's office. TKRN Abnormal ultrasonic finding on screening of mother 09/30/2020 12/05/2021 Overview: - pyelectasis on US in 09/30/2020 -Resolved on 25 weeks scan associated with us e of clomiphene, antepartum 09/30/2020 12/05/2021 documented as of this encounter (statuses as of 10/12/2022) [facility]11-14-[facility]21 History of Past illness Narrative* Problem Noted Date Diagnosed Date Resolved Date Indication for care in labor or delivery 01/30/2021 12/05/2021 Overview: -IAL -GBS unknown, term -Pitocin prn -Epidural in -SROM ~1600 Insufficient antepartum care 01/30/2021 12/05/2021 Overview: -Transfer of care from Dr. Doran -No GBS swab done -Missed appointments -Social work consult Pruritus 01/30/2021 12/05/2021 Overview: -LFTs and bile acids ordered but never drawn Antepartum anemia 10/22/2020 12/05/2021 Overview: -Hgb 10.7 -Endorses taking oral iron Ultrasound recheck of pyelectasis, antepartum 10/11/2020 11/23/2020 Overview: 11/23/20 - resolved! - Marya Chester MD 10/11/2020 Bilateral mild pyelectasis noted on previous ultrasounds. Anatomy US ordered at time of NOB. SW Pruritus of , antepartum 10/06/2020 01/30/2021 Overview: 10/06/2020 Bile acids and LFT's pend. SW with care elsewhere, antepartum 09/30/2020 01/30/2021 Overview: 09/30/2020 She is transferring care from Dr. Doran in [place]. She is 23 weeks 2 days by dates. She states baby has been active. Patient signed a release form to obtain her medical records from Dr. Doran's office. TKRN Abnormal ultrasonic finding on screening of mother 09/30/2020 12/05/2021 Overview: - pyelectasis on US in 09/30/2020 -Resolved on 25 weeks scan associated with us e of clomiphene, antepartum 09/30/2020 12/05/2021 documented as of this encounter (statuses as of 10/12/2022) [facility]11-14-[facility]21 History of Past illness Narrative* Problem Noted Date Diagnosed Date Resolved Date Indication for care in labor or delivery 01/30/2021 12/05/2021 Overview: -IAL -GBS unknown, term -Pitocin prn -Epidural in -SROM ~1600 Insufficient antepartum care 01/30/2021 12/05/2021 Overview: -Transfer of care from Dr. Doran -No GBS swab done -Missed appointments -Social work consult Pruritus 01/30/2021 12/05/2021 Overview: -LFTs and bile acids ordered but never drawn Antepartum anemia 10/22/2020 12/05/2021 Overview: -Hgb 10.7 -Endorses taking oral iron Ultrasound recheck of pyelectasis, antepartum 10/11/2020 11/23/2020 Overview: 11/23/20 - resolved! - Marya Chester MD 10/11/2020 Bilateral mild pyelectasis noted on previous ultrasounds. Anatomy US ordered at time of NOB. SW Pruritus of , antepartum 10/06/2020 01/30/2021 Overview: 10/06/2020 Bile acids and LFT's pend. SW with care elsewhere, antepartum 09/30/2020 01/30/2021 Overview: 09/30/2020 She is transferring care from Dr. Doran in [place]. She is 23 weeks 2 days by dates. She states baby has been active. Patient signed a release form to obtain her medical records from Dr. Doran's office. TKRN Abnormal ultrasonic finding on screening of mother 09/30/2020 12/05/2021 Overview: - pyelectasis on US in 09/30/2020 -Resolved on 25 weeks scan associated with us e of clomiphene, antepartum 09/30/2020 12/05/2021 documented as of this encounter (statuses as of 10/13/2022) [facility]07-26-[facility]21 History of Past illness Narrative* Problem Noted Date Resolved Date Ultrasound recheck of pyelectasis, antepar patrick 10/11/2020 11/23/2020 Overview: 11/23/20 - resolved! - Marya Chester MD 10/11/2020 Bilateral mild pyelectasis noted on previous ultrasounds. Anatomy US ordered at time of NOB. SW Pruritus of , antepartum 10/06/2020 01/30/2021 Overview: 10/06/2020 Bile acids and LFT's pend. SW with care elsewhere, antepart um 09/30/2020 01/30/2021 Overview: 09/30/2020 She is transferring care from Dr. Doran in [place]. She is 23 weeks 2 days by dates. She states baby has been active. Patient signed a release form to obtain her medical records from Dr. Doran's office. TKRN documented as of this encounter (statuses as of 11/01/2021) [facility]07-[facility] History of Past illness Narrative* Problem Noted Date Resolved Date Ultrasound recheck of pyelectasis, antepar patrick 10/11/2020 11/23/2020 Overview: 11/23/20 - resolved! - Marya Chester MD 10/11/2020 Bilateral mild pyelectasis noted on previous ultrasounds. Anatomy US ordered at time of NOB. SW Pruritus of , antepartum 10/06/2020 01/30/2021 Overview: 10/06/2020 Bile acids and LFT's pend. [facility] 09/30/2020 01/30/2021 Overview: 09/30/2020 She is transferring care from Dr. Doran in [place]. She is 23 weeks 2 days by dates. She states baby has been active. Patient signed a release form to obtain her medical records from Dr. Doran's office. TKRN documented as of this encounter (statuses as of 11/15/2021) [facility]07-26-[facility] History of Past illness Narrative* Problem Noted Date Resolved Date Ultrasound recheck of pyelectasis, antepar patrick 10/11/2020 11/23/2020 Overview: 11/23/20 - resolved! - Marya Chester MD 10/11/2020 Bilateral mild pyelectasis noted on previous ultrasounds. Anatomy US ordered at time of NOB. SW Pruritus of , antepartum 10/06/2020 01/30/2021 Overview: 10/06/2020 Bile acids and LFT's pend. SW with care elsewhere, [facility] 09/30/2020 01/30/2021 Overview: 09/30/2020 She is transferring care from Dr. Doran in [place]. She is 23 weeks 2 days by dates. She states baby has been active. Patient signed a release form to obtain her medical records from Dr. Doran's office. TKRN documented as of this encounter (statuses as of 11/28/2021) [facility] History of Past illness Narrative* Problem Noted Date Resolved Date Ultrasound recheck of pyelectasis, antepar patrick 10/11/2020 11/23/2020 Overview: 11/23/20 - resolved! - Marya Chester MD 10/11/2020 Bilateral mild pyelectasis noted on previous ultrasounds. Anatomy US ordered at time of NOB. SW Pruritus of , antepartum 10/06/2020 01/30/2021 Overview: 10/06/2020 Bile acids and LFT's pend. SW with care elsewhere, antepart um 09/30/2020 01/30/2021 Overview: 09/30/2020 She is transferring care from Dr. Doran in [place]. She is 23 weeks 2 days by dates. She states baby has been active. Patient signed a release form to obtain her medical records from Dr. Doran's office. TKRN documented as of this encounter (statuses as of 12/01/2021) [facility]07-26-[facility] History of Past illness Narrative* Problem Noted Date Resolved Date Ultrasound recheck of pyelectasis, antepar patrick 10/11/2020 11/23/2020 Overview: 11/23/20 - resolved! - Marya Chester MD 10/11/2020 Bilateral mild pyelectasis noted on previous ultrasounds. Anatomy US ordered at time of NOB. SW Pruritus of , antepartum 10/06/2020 01/30/2021 Overview: 10/06/2020 Bile acids and LFT's pend. SW with care elsewhere, antepart 09/30/2020 01/30/2021 Overview: 09/30/2020 She is transferring care from Dr. Doran in [place]. She is 23 weeks 2 days by dates. She states baby has been active. Patient signed a release form to obtain her medical records from Dr. Doran's office. TKRN documented as of this encounter (statuses as of 12/01/2021) [facility] Diagnosis Frequency of urination Urinary frequency Urgency of urination Flank pain Abdominal pain, unspecified site Recurrent UTI Urinary tract infection, site not specified Incomplete bladder emptying documented in this encounter [facility] Work Phone: Evaluation note* Diagnosis Cluster headache, not intractable, unspecified chronicity pattern- Primary [facility]: [facility]* Diagnosis Encounter for supervision of other normal in first trimester- Primary [facility] this encounter [facility] [place] [facility]* Diagnosis Encounter for (NT) nuchal translucency scan- Primary Other specified screening 13 weeks gestation of state, incidental [facility] this encounter [facility]* Diagnosis Encounter for supervision of normal in first trimester, unspecified - Primary documented in this encounter [facility] [place] [facility]* Diagnosis Encounter for supervision of other normal in first trimester- Primary 13 weeks gestation of state, incidental Encounter for screening for nuchal translucency Headaches documented in this encounter [facility] [place] [facility]* Diagnosis APPOINTMENT CANCELLED- Primary documented in this encounter [facility] [place] [facility]* Diagnosis Encounter for anatomic survey- Primary Suspected anomaly not found 21 weeks gestation of state, incidental documented in this encounter [facility] [place] [facility]* Diagnosis 21 weeks gestation of - Primary state, incidental Encounter for supervision of other normal in first trimester Malaise and fatigue Other malaise and fatigue Hair loss Alopecia, unspecified documented in this encounter [facility] [place] [facility]* Diagnosis 26 weeks gestation of - Primary state, incidental documented in this encounter [facility] [place] [facility]* Diagnosis Depression, unspecified depression type- Primary External hemorrhoids External hemorrhoids without mention of complication documented in this encounter [facility] [place] [facility]* Diagnosis External hemorrhoids- Primary External hemorrhoids without mention of complication documented in this encounter [facility] [place] [facility]* Diagnosis Cloudy urine- Primary Other nonspecific finding on examination of urine 29 weeks gestation of state, incidental documented in this encounter [facility] [place] [facility]* Diagnosis 29 weeks gestation of - Primary state, incidental Encounter for supervision of other normal in first trimester documented in this encounter [facility] [place] [facility]* Diagnosis 36 weeks gestation of - Primary state, incidental Urinary urgency Urgency of urination documented in this encounter [facility] [place] [facility]* Diagnosis Short interval between pregnancies affecting , antepartum- Primary Supervision of other normal , antepartum 37 weeks gestation of state, incidental documented in this encounter [facility] note* Diagnosis 38 weeks gestation of - Primary state, incidental Short interval between pregnancies affecting , antepartum Supervision of other normal , antepartum documented in this encounter [facility] note* Diagnosis Short interval between pregnancies affecting , antepartum- Primary 39 weeks gestation of state, incidental documented in this encounter [facility] note* Diagnosis 42 weeks gestation of - Primary 42 weeks gestation of Status post section Other postprocedural status documented in this encounter [facility] note* Diagnosis Incisional pain- Primary documented in this encounter [facility] note* Diagnosis care and examination- Primary Routine follow-up Vaginal discharge Leukorrhea, not specified as infective documented in this encounter [facility] note* Diagnosis Vaginal odor- Primary Unspecified symptom associated with female genital organs Pelvic cramping Unspecified symptom associated with female genital organs documented in this encounter [facility] note* Diagnosis Vaginal discharge- Primary Leukorrhea, not specified as infective Vaginal odor Unspecified symptom associated with female genital organs documented in this encounter [facility] note* Diagnosis Injury of left foot, initial encounter Closed displaced fracture of phalanx of toe of left foot, unspecified toe, initial encounter documented in this encounter [facility] note* Diagnosis Migraine without aura and without status migrainosus, not intractable- Primary Migraine without aura, without mention of intractable migraine without mention of status migrainosus Lactating mother care and examination of lactating mother documented in this encounter [facility] note* Diagnosis Routine general medical examination at a health care facility- Primary Encounter to establish care Migraine without aura and without status migrainosus, not intractable Iron deficiency anemia, unspecified iron deficiency anemia type Abdominal bloating Flatulence, eructation, and gas pain Screening for cardiovascular condition Screening for other and unspecified cardiovascular conditions Screening for lipid disorders documented in this encounter [facility] note* Diagnosis Moderate episode of recurrent major depressive disorder (HCC)- Primary PTSD (post-traumatic stress disorder) Posttraumatic stress disorder Insomnia due to mental condition Unspecified nonpsychotic mental disorder documented in this encounter [facility] note* Diagnosis Migraine without aura and without status migrainosus, not intractable- Primary documented in this encounter [facility] note* Diagnosis Migraine without aura and without status migrainosus, not intractable [facility] [place] [facility]* Diagnosis Encounter for prescription of emergency contraception- Primary documented in this encounter [facility] note* Diagnosis PTSD (post-traumatic stress disorder)- Primary Posttraumatic stress disorder Encounter for completion of form with patient Moderate episode of recurrent major depressive disorder (HCC) Insomnia due to mental condition Unspecified nonpsychotic mental disorder Nightmares associated with chronic post-traumatic stress disorder Other dysfunctions of sleep stages or arousal from sleep documented in this encounter [facility] note* Diagnosis Hemorrhoids, unspecified hemorrhoid type- Primary [facility] [place] [facility]* Diagnosis Facial skin lesion- Primary [facility] [place] [facility]* Diagnosis Facial skin lesion Skin tags, multiple acquired Acne vulgaris Other acne Multiple benign melanocytic nevi of both upper extremities, both lower extremities, and trunk documented in this encounter [facility] note* Diagnosis Abnormal uterine bleeding (AUB)- Primary Pelvic pain Family history of malignant neoplasm of digestive organ Family history of malignant neoplasm of gastrointestinal tract documented in this encounter [facility] note* Diagnosis Vulvar itching- Primary Pelvic pain Dyspareunia in female [facility]* Diagnosis Pelvic pain- Primary documented in this encounter [facility] note* Diagnosis Severe episode of recurrent major depressive disorder, 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 PTSD (post-traumatic stress disorder) Posttraumatic stress disorder Insomnia due to mental condition Unspecified nonpsychotic mental disorder documented in this encounter [facility]* Attachments The following attachments cannot be sent through Care Everywhere. * Yearly Physical for Adults (Swedish) [facility]* Attachments The following attachments cannot be sent through Care Everywhere. * Tubal Ligation, Laparoscopic Surgery (Swedish) documented in this [facility] for referral (narrative)* Diagnostic Procedure Only (Routine) - Authorized Specialty Diagnoses / Procedures Referred By Beatriz briscoe Referred To Contact [facility] Diagnoses Encounter for supervision of other normal in first trimester Procedures NUCHAL TRANSLUCENCY WHI US NUCHAL TRANSLUCENCY 1ST GESTATION Amanda Alcaraz MD [address] [place] [address] [facility] [address] [place] [address] Referral ID Status Reason Start Date Expiration Date Visits Requested Visits Authorized [id number] Authorized Auto-Generat ed Referral 11/30/2021 11/30/2022 1 1 * Diagnostic Procedure Only (Routine) - Pending Review Specialty Diagnoses / Procedures Referred By Contac t Referred To Contact [facility] Diagnoses Encounter for supervision of other normal in first trimester Procedures OBSTETRIC ULTRASOUND WHI US PREG UTERUS AFTER 1ST TRIMEST GESTATION Amanda Alcaraz MD [address] [place] [address] [address] Referral ID Status Reason Start Date Expiration Date Visits Requested Visits Authorized [id number] Pending Review Auto-Generat ed Referral 11/30/2021 11/30/2022 1 1 [facility] for referral (narrative)* Diagnostic Procedure Only (Routine) - Authorized Specialty Diagnoses / Procedures Referred By Contac t Referred To Contact US IMAGING Diagnoses Pelvic cramping Procedures US FEMALE PELVIS TRANSVAG US TRANSVAGINAL Amanda Alcaraz MD [address] [place] [address] Us Imaging Referral ID Status Reason Start Date Expiration Date Visits Requested Visits Authorized [id number] Authorized Auto-Generat ed Referral 09/07/2022 10/07/2023 1 1 [facility] for referral (narrative)* Consultation (Routine) - Pending Review Specialty Diagnoses / Procedures Referred By Contac t Referred To Contact General Surgery Diagnoses Hemorrhoids, unspecified hemorrhoid type Procedures NM OFFICE/OUTPATIENT [facility] 60 MINUTES Chago Gallego DO [facility] [address] [facility] [address] [place] [address] Hermelindo Presley MD [address] [place] [address] Referral ID Status Reason Start Date Expiration Date Visits Requested Visits Authorized [id number] Pending Review Specialty Services Required 07/24/2023 07/23/2024 1 1 [facility] Consultation (Routine) - Pending Review Specialty Diagnoses / Procedures Referred By Beatriz briscoe Referred To Contact Dermatology Diagnoses Facial skin lesion Procedures NM OFFICE/OUTPATIENT NEW HIGH MDM 60 MINUTES Chago Gallego DO [address] [place] [address] [facility] Derm [address] [facility] [address] [place] [address] Referral ID Status Reason Start Date Expiration Date Visits Requested Visits Authorized [id number] Pending Review Specialty Services Required 07/26/2023 07/25/2024 1 1 [facility] Summary Purpose Family History No Family History Records FoundNo Family History Records FoundNo Family History Records FoundNo Family History Records FoundNo Family History Records FoundNo Family History Records FoundNo Family History Records Found Advance Directives Documents on File Type Date Recorded 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 Advance Directives and Living Will Power of Outreach Librarian Documents on File Type Date Recorded 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 ACP-Advance Directive ACP-Power of Outreach Librarian Documents on File Type Date Recorded 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 ACP-Advance Directive ACP-Power of Outreach Librarian Latest Code Status on File Code Status Date Activated Date Inactivated Comments Full Code 04/20/2021 11:44 AM Latest Code Status on File Code Status Date Activated Date Inactivated Comments Full Code 04/20/2021 11:44 AM 04/20/2021 4:39 PM Latest Code Status on File Code Status Date Activated Date Inactivated Comments Full Code 07/16/2022 1:17 AM 07/19/2022 7:01 PM Latest Code Status on File Code Status Date Activated Date Inactivated Comments Full Code 07/16/2022 1:17 AM 07/19/2022 7:01 PM Date Activated Date Inactivated Comments 07/16/2022 1:17 AM 07/19/2022 7:01 PM Date Activated Date Inactivated Comments 07/16/2022 1:17 AM 07/19/2022 7:01 PM Assessments Diagnosis Urinary frequency Diagnosis Closed avulsion fracture of navicular bone of left foot, initial encounter- Primary Diagnosis Closed displaced fracture of navicular bone of left foot with routine healing, subsequent encounter- Primary Diagnosis Closed displaced fracture of navicular bone of left foot with routine healing, subsequent encounter Diagnosis Abdominal discomfort Abdominal pain, unspecified site Multiple food allergies Other adverse food reactions, not elsewhere classified Reason for Referral Status Reason Specialty Diagnoses / Procedures Referred By Contact Referred To Contact Open Specialty Services Required Orthopedic Surgery Diagnoses Closed avulsion fracture of navicular bone of left foot, initial encounter Reagan Solano APRN - CNP [address] [place] [address] [place] [address] [address] [place] [address] Scheduling Instructions [facility] [address] [place] [address] Specialty Diagnoses / Procedures Referred By Contac t Referred To Contact Beatrice Parisi DO [address] [place] [address] Referral ID Status Reason Start Date Expiration Date V isits Requested Visits Authorized [id number] Pending Review 1 1 Specialty Diagnoses / Procedures Referred By Contac t Referred To Contact Radiology Diagnoses Migraine without aura and without status migrainosus, not intractable Procedures MR brain wo contrast Lynne Hale, [employer] [address] [place] [id number] Referral ID Status Reason Start Date Expiration Date V isits Requested Visits Authorized [id number] Pending Review 02/14/2023 02/14/2024 1 1 Specialty Diagnoses / Procedures Referred By Contac t Referred To Contact Radiology Diagnoses Migraine without aura and without status migrainosus, not intractable Procedures MR brain wo contrast Lynne Hale, [employer] [address] [place] [address] [facility] [address] [place] [address] Referral ID Status Reason Start Date Expiration Date Visits Re quested Visits Authorized [id number] Closed 02/14/2023 02/14/2024 1 1 Specialty Diagnoses / Procedures Referred By Contac t Referred To Contact Physical Therapy Diagnoses Pelvic pain Procedures NM OFFICE/OUTPATIENT NEW HIGH MDM 60 MINUTES Yoselin Adams MD [address] [place] [address] [facility] [address] [place] [address] Referral ID Status Reason Start Date Expiration Date Visits Requested Visits Authorized [id number] Pending Review Eval and Treat 4 12/27/2024 99 99 Discharge Instructions * Attachments The following attachments cannot be sent through Care Everywhere. * Foot Fracture (Swedish) documented in this encounter* Instructions* Valeriano [facility] MD - 03/28/2020 Use crutches and be nonweightbearing for the next 3-4 days, take [place] as prescribed, mandatory follow-up with the orthopedic referral that was made for you at [facility] yesterday, return to Emergency Room if worse at all. * Attachments The following attachments cannot be sent through Care Everywhere. * Foot Fracture (Swedish) documented in this encounter Health Concerns Problem Noted Date OB Reminders 11/30/2021 Problem Noted Date OB Reminders 11/30/2021 Problem Noted Date OB Reminders 11/30/2021 Problem Noted Date OB Reminders 11/30/2021 Problem Noted Date OB Reminders 11/30/2021 Problem Noted Date OB Reminders 11/30/2021 Problem Noted Date OB Reminders 11/30/2021 Problem Noted Date OB Reminders 11/30/2021 Problem Noted Date OB Reminders 11/30/2021 Problem Noted Date OB Reminders 11/30/2021 Problem Noted Date OB Reminders 11/30/2021 Problem Noted Date OB Reminders 11/30/2021 Problem Noted Date OB Reminders 11/30/2021 Problem Noted Date Diagnosed Date OB Reminders 11/30/2021 Problem Noted Date Diagnosed Date OB Reminders 11/30/2021 Problem Noted Date Diagnosed Date OB Reminders 11/30/2021 Problem Noted Date Diagnosed Date OB Reminders 11/30/2021 Additional Source Comments INFORMATION SOURCE (unrecogn ized section and content) DATE CREATED AUTHOR 01/01/2018 [facility] DATE CREATED AUTHOR AUTHOR'S ORGANIZ ATION 03/26/2019 [facility] DATE CREATED AUTHOR AUTHOR'S ORGANIZ ATION 04/26/2021 [facility] DATE CREATED AUTHOR AUTHOR'S ORGANIZ ATION 08/05/2021 [facility] DATE CREATED AUTHOR AUTHOR'S ORGANIZ ATION 01/10/2024 [facility] DATE CREATED AUTHOR AUTHOR'S ORGANIZ ATION 01/12/2024 [facility] DATE CREATED AUTHOR AUTHOR'S ORGANIZ ATION 01/13/2024 [facility] Reason for Visit (unrecogniz ed section and content) Reason Comments Ankle Pain left Reason Comments Foot Pain Reason Comments Headache Reason Comments Future Appointment Reason Comments Early OB pain 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 Diagnoses Encounter for supervision of other normal in first trimester Procedures NUCHAL TRANSLUCENCY WHI US NUCHAL TRANSLUCENCY 1ST GESTATION Amanda Alcaraz MD [address] [place] [address] [address] Referral ID Status Reason Start Date Expiration Date V isits Requested Visits Authorized [id number] Closed Auto-Generate d Referral 11/30/2021 11/30/2022 1 1 Reason Comments First Seq Results Reason Onset Date Comments Care 12/29/2021 Reason Comments NIPT results Reason Onset Date Comments Care 01/31/2022 Reason Comments Patient Question Specialty Diagnoses / Procedures Referred By Beatriz t Referred To Contact [facility] Diagnoses Encounter for supervision of other normal in first trimester Procedures OBSTETRIC ULTRASOUND WHI US PREG UTERUS AFTER 1ST TRIMEST GESTATION Amanda Alcaraz MD [address] [place] [address] [address] [place] [address] Referral ID Status Reason Start Date Expiration Date V isits Requested Visits Authorized [id number] Closed Auto-Generate d Referral 11/30/2021 11/30/2022 1 1 Reason Onset Date Comments Care 02/27/2022 Reason Comments Establish Care Reason Comments Medication Problem Reason Onset Date Comments Care 04/21/2022 Reason Onset Date Comments Care 06/09/2022 Reason Onset Date Comments Care 06/16/2022 Reason Onset Date Comments Care 06/22/2022 Reason Comments Care Reason Onset Date Comments Care 06/29/2022 Reason Comments Section Reason Comments Appointment Reason Comments Ob Delivery Note Reason Comments Contractions Specialty Diagnoses / Procedures Referred By Contac t Referred To Contact Diagnoses 42 weeks gestation of Procedures O48.0 Diann Baptiste W, DO [facility] [place] [address] Referral ID Status Reason Start Date Expiration Date Visits Re quested Visits Authorized [id number] 1 1 Reason Comments Vaginal Bleeding Abdominal pain, Reason Comments Routine Reason Comments Insurance Authorization Reason Comments New Patient L 5th toe fx Specialty Diagnoses / Procedures Referred By Contac t Referred To Contact Orthopedic Surgery Diagnoses Injury of left foot, initial encounter Closed displaced fracture of phalanx of toe of left foot, unspecified toe, initial encounter Guerita Wiseman PA-C [address] [facility] [address] [place] [address] [facility] [address] [facility] [place] [place] [address] Referral ID Status Reason Start Date Expiration Date V isits Requested Visits Authorized [id number] Closed Specialty Services Required 10/10/2022 10/10/2023 1 1 Reason Comments Migraine Reason Comments New Patient Establish Care Specialty Diagnoses / Procedures Referred By Contac t Referred To Contact Radiology Diagnoses Migraine without aura and without status migrainosus, not intractable Procedures MR brain wo contrast Lynne Hale, LINE STAKER - [employer] ATT[employer] [address] [place] [address] [facility] [address] [place] [address] Referral ID Status Reason Start Date Expiration Date Visits Re quested Visits Authorized [id number] Closed 02/14/2023 02/14/2024 1 1 Reason Comments Depression Sleep Problem Med Management Follow Up Posttraumatic Stress Disorder Reason Onset Date Comments Population Health Navigation Outreach 08/10/[address] 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 / Procedures Referred By Beatriz briscoe Referred To Contact Dermatology Diagnoses Facial skin lesion Procedures NM OFFICE/OUTPATIENT NEW HIGH MDM 60 MINUTES Chaog Gallego DO [address] [place] [address] [facility] [address] [facility] [address] [place] [address] Referral ID Status Reason Start Date Expiration Date V isits Requested Visits Authorized [id number] Closed Specialty Services Required 07/26/2023 07/25/2024 1 1 Reason Onset Date Comments Medication Problem 11/07/2023 Reason Onset Date Comments Other 11/21/2023 Excused from Jur y duty Reason Comments New Patient Heavy bleeding, pain during intercourse Reason Onset Date Comments Vaginal Itching 01/01/2024 Reason Comments Vaginal Discharge Reason Onset Date Comments Orders 01/01/2024 Reason Onset Date Comments Medication Problem 01/04/2024 Reason Comments Posttraumatic Stress Disorder Depression Suicidal thoughts Med Management Reason Onset Date Comments Medication Question 01/04/2024 Ordered Prescriptions (unrec ognized section and content) Prescription Sig Dispensed Refills Start Date End Da te naproxen (NAPROSYN) 500 MG tablet Take 1 tablet by mouth 2 times daily as needed for Pain 40 tablet 0 03/27/2020 Prescription Sig Dispensed Refills Start Date End Da te HYDROcodone-acetaminophe n (NORCO) 5-325 MG per tabletIndications:Closed displaced fracture of navicular bone of left foot with routine healing, subsequent encounter Take 1 tablet by mouth every 4 hours as needed for Pain for up to 3 days. Intended supply: 3 days. Take lowest dose possible to manage pain 18 tablet 0 03/28/2020 03/31/2020 Scheduled Active and Recently Administ ered Medications (unrecognized section and content) Medication Order 04/18/2021 04/19/2021 04/20/2021 ceFAZolin (ANCEF) 2000 mg in dextrose 4 % 100 mL IVPB (premix) 2,000 mg, IntraVENous, DIET KITCHEN COOK TO O.R., 1 dose, On Sun04/20/21 at 1200, Administer within 1 hour prior to incision. Repeat in 2 hours after initial dose if still intra-op., Pre-op (day of surgery) 1200 (Due) sodium chloride flush 0.9 % injection 10 mL 10 mL, IntraVENous, EVERY 12 HOURS SCHEDULED (2 times per day), First dose on Sun04/20/21 at 2100, Pre-op (day of surgery) 2100 (Due) Continuous Medication Order 04/18/2021 04/19/2021 04/20/2021 lactated ringers infusion IntraVENous, at 50 mL/hr, CONTINUOUS, Starting on Sun04/20/21 at 1200, Upon admission to sameday - please start iv if patient does not have iv access. Use 500ml NS for patients on dialysis., Pre-op (day of surgery) 1210 (New Bag - Prov ider: Megan Masterson RN) PRN Medication Order 04/18/2021 04/19/2021 04/20/2021 0.9 % sodium chloride bolus 500 mL (6.3 mL/kg), IntraVENous, at 500 mL/hr, Administer over 1 Hours, ONCE PRN, Nausea, Starting on Sun04/20/21 at 1234, For 1 dose, Use caution in patients with a diagnosis of Heart failure or Kidney failure., PACU only 0.9 % sodium chloride infusion 25 mL, IntraVENous, at 100 mL/hr, PRN, If patient receiving piggyback infusions without ordered maintenance IV fluids or with frequent/long duration piggyback infusions, Starting on Sun04/20/21 at 1144, Administer at the same rate as the piggyback being infused., Pre-op (day of surgery) diphenhydrAMINE (BENADRYL) injection 12.5 mg 12.5 mg, IntraVENous, ONCE PRN, Itching, Starting on Sun04/20/21 at 1234, For 1 dose, for use Sameday and, PACU only fentaNYL (SUBLIMAZE) injection 25 mcg 25 mcg, IntraVENous, EVERY 5 MIN PRN, Pain Moderate (4-6), Starting on Sun04/20/21 at 1234, For 3 doses, Phase I and Phase II- Initial therapy for moderate pain (4-6). Restricted to a 50 minute time frame starting when the patient can verbally state their pain score. If after 2 doses the pain score does not decrease by more than one point, then go to secondary medication. Ifsecondary medications are utilized, do not return to initial therapy medications. SDS and, PACU only fentaNYL (SUBLIMAZE) injection 50 mcg 50 mcg, IntraVENous, EVERY 5 MIN PRN, Pain Severe (7-10), Starting on Sun04/20/21 at 1234, For 3 doses, Phase I or Phase II- Initial therapy for severe pain (7-10). Restricted to a 50 minute time frame starting when the patient can verbally state their pain score. If after 2 doses the pain score does not decrease by more than one point, then go to secondary medication. If secondary medications are utilized, do not return to initial therapy medications.Sameday and, PACU only hydrALAZINE (APRESOLINE) injection 5 mg 5 mg, IntraVENous, EVERY 10 MIN PRN, High Blood Pressure, Starting on Sun04/20/21 at 1234, PRN for SBP > 160 for 2 consecutive measurements, and if one of the following conditions is met: 1) If IV labetolol is ineffective. 2) If HR is under 60. 3) If patient has heart block, COPD or asthma. If both labetalol and hydralazine ineffective, notify anesthesiologist. for use Sameday and, PACU only HYDROmorphone (DILAUDID) injection 0.25 mg 0.25 mg, IntraVENous, EVERY 5 MIN PRN, Pain Moderate (4-6), Starting on Sun04/20/21 at 1234, For 4 doses, Phase I - Secondary therapy to be used after initial therapy medication doses are ineffective (pain score does not decrease by more than 1 point). If secondary medications are utilized, do not return to initial therapy medications., PACU only HYDROmorphone (DILAUDID) injection 0.5 mg 0.5 mg, IntraVENous, EVERY 5 MIN PRN, Pain Severe (7-10), Starting on Sun04/20/21 at 1234, For 4 doses, Phase I - Secondary therapy to be used after initial therapy medication doses are ineffective (pain score does not decrease by more than 1 point). If secondary medications are utilized, do not return to initial therapy medications., PACU only iopamidol (ISOVUE-300) 61 % injection 50 mL (COMPLETED) 50 mL, Other, IMG ONCE PRN, Other, given to surgeon to use intraoperatively, Starting on Sun04/20/21 at 1244, For 1 dose, Intra-op, Routine 1244 (Given by Other - Provider: Phil Wright) labetalol (NORMODYNE;TRANDATE) injection 5 mg 5 mg, IntraVENous, EVERY 10 MIN PRN, High Blood Pressure, Starting on Sun04/20/21 at 1234, PRN for SBP >160 for 2 consecutive measurements, if HR is 60 or greater. If beta nilesh is contraindicated (HR less than 60, heart block, COPD or asthma) use hydralazine IV order. for use Sameday and, PACU only lidocaine PF 1 % injection 1 mL 1 mL, IntraDERmal, ONCE PRN, IV start, Starting on Sun04/20/21 at 1144, For 1 dose, Pre-op (day of surgery) meperidine (DEMEROL) injection 12.5 mg 12.5 mg, IntraVENous, EVERY 5 MIN PRN, Shivering, , Starting on Sun04/20/21 at 1234, May give every 5 minutes to max of 50mg. for use Sameday and, PACU only ondansetron (ZOFRAN) injection 4 mg 4 mg, IntraVENous, ONCE PRN, Nausea, Starting on Sun04/20/21 at 1234, For 1 dose, Initial antiemetic therapy. For use sameday and, PACU only oxyCODONE (ROXICODONE) immediate release tablet 10 mg(Linked Group 1) 10 mg, Oral, PRN, Pain Severe (7-10), Starting on Sun04/20/21 at 1234, For 1 dose, PHASE II, PACU only oxyCODONE (ROXICODONE) immediate release tablet 5 mg(Linked Group 1) 5 mg, Oral, PRN, Pain Moderate (4-6), Starting on Sun04/20/21 at 1234, For 1 dose, PHASE II, PACU only promethazine (PHENERGAN) injection 6.25 mg 6.25 mg, IntraVENous, ONCE PRN, Nausea, Starting on Sun04/20/21 at 1234, For 1 dose, Caution if used IV:Check IV site for infiltrate prior to and during administration. Secondary antiemetic therapy. For use sameday and For IV administration, dilute to 10ml with normal saline. Must be administered over at least 10 minutes., PACU only sodium chloride flush 0.9 % injection 10 mL 10 mL, IntraVENous, PRN, Line Care, After every IV line use, Starting on Sun04/20/21 at 1144, Pre-op (day of surgery) No Frequency Medication Order 04/18/2021 04/19/2021 04/20/2021 famotidine (PEPCID) 20 MG/2ML injection Starting on Sun04/20/21 at 1235, For 1 dose, FRANCESCA AGUIRRE: cabinet override 1245 (Due) Linked Groups Order Group 1: oxyCODONE (ROXICODONE) immediate release tablet 5 mgJump to med 5 mg, Oral, PRN, Pain Moderate (4-6), Starting on Sun04/20/21 at 1234, For 1 dose
PHASE II
PACU only Or oxyCODONE (ROXICODONE) immediate release tablet 10 mgJump to med 10 mg, Oral, PRN, Pain Severe (7-10), Starting on Sun04/20/21 at 1234, For 1 dose
PHASE II
PACU only Scheduled Medication Order 05/31/2021 06/01/2021 06/02/2021 0.9 % sodium chloride bolus (COMPLETED) 500 mL, IntraVENous, at 247.9 mL/hr, Administer over 121 Minutes, ONCE, On Tessy 06/02/21 at 1634, For 1 dose 1659 (New Bag - Prov ider: Gita Loo RN)1840 (Stopped - Provider: Gita Loo RN) ketorolac (TORADOL) injection 30 mg (COMPLETED) 30 mg, IntraVENous, ONCE, On Tessy 06/02/21 at 1634, For 1 dose, Do not administer for more than 5 days. 1659 (Given - Provid er: Gita Loo RN) nalbuphine (NUBAIN) injection 10 mg (COMPLETED) 10 mg, IntraVENous, ONCE, On Tessy 06/02/21 at 1723, For 1 dose 1753 (Given - Provid er: Gita Loo RN) ondansetron (ZOFRAN) injection 4 mg (COMPLETED) 4 mg, IntraVENous, ONCE, On Tessy 06/02/21 at 1634, For 1 dose 1659 (Given - Provid er: Gita Loo RN) Scheduled Medication Order 07/17/2022 07/18/2022 07/19/2022 ferrous sulfate tablet 325 mg 325 mg, Oral, 2 times daily with meals, First dose on 07/16/22 at 0800, , Start if Hgb less than 10. 0754 (Given - Provider: Ada Dill RN)1818 (Given - Provider: Ada Dill RN) 0800 (Given - Provider: Genevieve Robert, CRISS)1733 (Given - Provider: Maria D Blevins RN) 0800 (Not Given - Provider: Dora Villegas RN - Reason: Order parameters not met)1700 (Canceled Entry - Provider: Automatic Discharge Provider - Comment: Automatically canceled at discontinue of medication order) hydrocortisone (Anusol-HC) suppository 25 mg 25 mg, Rectal, 2 times daily, First dose on Sun07/17/22 at 2100 1819 (Given - Provider: Ada Dill RN)2100 (Not Given - Provider: Jessica Maguire RN - Reason: Other - Comment: given early by day shift RN) 0900 (Not Given - Provider: Genevieve Robert RN - Reason: Patient/family refused)2100 (Not Given - Provider: Adelaida Doran RN - Reason: Patient/family refused) 0900 (Not Given - Provider: Dora Villegas RN - Reason: Patient/family refused) ibuprofen tablet 600 mg 600 mg, Oral, Every 6 hours, First dose on 07/16/22 at 0630, , Once tolerating PO, discontinue Toradol and begin ibuprofen 8 hours after the final dose of Toradol. Alternative ibuprofen and acetaminophen every 3 hours. 0030 (Canceled Entry - Provider: Automatic Discharge Provider - Comment: Automatically canceled at discontinue of medication order)0630 (Not Given - Provider: Ada Dill RN - Reason: Patient/family refused)1230 (Not Given - Provider: Ada Dill RN - Reason: Patient/family refused)1830 (Not Given - Provider: Ada Dill RN - Reason: Patient/family refused) 0030 (Canceled Entry - Provider: Automatic Discharge Provider - Comment: Automatically canceled at discontinue of medication order)0630 (Not Given - Provider: Genevieve Robert RN - Reason: Patient/family refused)1510 (Given - Provider: Nelson Benjamin RN)2120 (Given - Provider: Adelaida Doran RN) 0330 (Given - Provider: Shayna Chaidez RN)0902 (Given - Provider: Dora Villegas RN)1458 (Given - Provider: Dora Villegas RN)1830 (Canceled Entry - Provider: Automatic Discharge Provider - Comment: Automatically canceled at discontinue of medication order) Lidocaine 4 % patch 1 patch 1 patch, TransDERmal, Administer over 12 Hours, Daily, First dose on Sun07/17/22 at 1730, Apply patch to affected area. Patch may remain in place for up to 12 hours in any 24 hour period. 1818 (Medication Applied - Provider: Ada Dill RN - Comment: abd) 0618 (Medication Removed - Provider: Jessica Maguire RN)1735 (Not Given - Provider: Maria D Blevins RN - Reason: Patient/family refused) 1800 (Canceled Entry - Provider: Automatic Discharge Provider - Comment: Automatically canceled at discontinue of medication order) measles, mumps and rubella (MMR) vaccine 0.5 mL 0.5 mL, SubCUTAneous, Prior to discharge, Starting on Sun07/16/22 at 0625, For 1 dose, , Administer if Rubella non-immune or equivocal Vaccine is a vial of powder. Reconstitute with the available diluent for this vaccine. Barcode scan vaccine vial for Vaccine Record polyethylene glycol (PEG) 3350 (Miralax) packet 17 g 17 g, Oral, Daily, First dose on 07/17/22 at 1430 1430 (Given - Provider: Ada Dill RN) 0900 (Not Given - Provider: Genevieve Robert RN - Reason: Patient/family refused) 1430 (Canceled Entry - Provider: Automatic Discharge Provider - Comment: Automatically canceled at discontinue of medication order) vitamin tablet 1 tablet, Oral, Daily, First dose on 07/16/22 at 0900, , Begin when normal bowel activity resumes. 0900 (Not Given - Provider: Ada Dill RN - Reason: Order parameters not met) 0900 (Not Given - Provider: Genevieve Robert RN - Reason: Order parameters not met) 0900 (Not Given - Provider: Dora Villegas RN - Reason: Order parameters not met) sodium chloride 0.9% (NS) flush 5-40 mL 5-40 mL, IntraVENous, Every 12 hours scheduled (2 times per day), First dose on Sun07/16/22 at 0900, , or Line Patency: Peripheral IV = 5 mL; Midline or Central Line = 10 mL/lumen. If following IV push medication, administer flush at same rate as the IV push. Flush volume is determined by type of infusion therapy being given. For non-viscous solutions use: Peripheral IV = 5 mL Midline or Central Line = 10 mL/lumen For viscous solutions (i.e. blood components, parenteral nutrition, contrast media, or after obtaining blood sample) use: Peripheral IV = 10 mL Midline or Central Line = 20 mL/lumen 0900 (Not Given - Provider: Ada Dill RN - Reason: Loss of IV access)2100 (Canceled Entry - Provider: Automatic Discharge Provider - Comment: Automatically canceled at discontinue of medication order) 0900 (Not Given - Provider: Genevieve Robert RN - Reason: Loss of IV access)2100 (Not Given - Provider: Adelaida Doran RN - Reason: Loss of IV access) 0900 (Not Given - Provider: Dora Villegas RN - Reason: Order parameters not met) Tdap (BoostRIX) vaccine 0.5 mL 0.5 mL, IntraMUSCular, Prior to discharge, Starting on 07/16/22 at 0625, For 1 dose, , If not previously administered during at 27-36 weeks as recommended by CDC. Tdap. Not to be confused with look-alike/sound-alike product DTaP. PRN Medication Order 07/17/2022 07/18/2022 07/19/2022 acetaminophen (Tylenol) tablet 650 mg 650 mg, Oral, Every 6 hours PRN, mild pain (1-3), Pain (1-10), Starting on 07/16/22 at 0625, , Give in addition to any other pain medication ordered at same time for any pain indication. Maximum dose of acetaminophen is 4000mg from all sources in 24 hours. Alternate ibuprofen and acetaminophen every 3 hours. diphenhydrAMINE (BENADryl) injection 25 mg 25 mg, IntraVENous, Every 6 hours PRN, itching, hives, Starting on 07/16/22 at 0625, docusate sodium (Colace) capsule 100 mg 100 mg, Oral, 2 times daily PRN, constipation, Starting on 07/16/22 at 0625, , Do not crush or break. 0755 (Given - Provider: Ada Dill, RN) 0943 (Given - Provider: Genevieve Robert, CRISS)2121 (Given - Provider: Adelaida Doran, CRISS) 0926 (Given - Provider: Dora Villegas, CRISS) famotidine (Pepcid) tablet 20 mg 20 mg, Oral, Daily PRN, indigestion, heartburn, Starting on 07/16/22 at 0625, , Renal dose per pharmacy for peptic ulcer prophylaxis. HYDROmorphone (Dilaudid) injection 0.25 mg(Linked Group 1) 0.25 mg, IntraVENous, Every 3 hours PRN, moderate pain (4-6), Starting on 07/16/22 at 1400, , If oral and IV narcotics ordered, use oral first and only use IV if oral is ineffective or cannot take oral. Do Not give oral and IV within 1 hour of each other unless specifically ordered. HYDROmorphone (Dilaudid) injection 0.5 mg(Linked Group 1) 0.5 mg, IntraVENous, Every 3 hours PRN, severe pain (7-10), Starting on 07/16/22 at 1400, , If oral and IV narcotics ordered, use oral first and only use IV if oral is ineffective or cannot take oral. Do Not give oral and IV within 1 hour of each other unless specifically ordered. lanolin (Lansinoh) cream Topical, Every 1 hour PRN, dry skin, nipple discomfort, Starting on 07/16/22 at 0625, , Apply to affected area ondansetron (Zofran) injection 4 mg(Linked Group 2) 4 mg, IntraVENous, Every 6 hours PRN, nausea, vomiting, Starting on 07/16/22 at 0625, , 1st Line. Give IV if patient is unable to take orally. If inadequate response within 60 minutes, proceed to next-line agent or contact provider if no further options ordered. ondansetron ODT (Zofran-ODT) disintegrating tablet 4 mg(Linked Group 2) 4 mg, Oral, Every 8 hours PRN, nausea, vomiting, Starting on 07/16/22 at 0625, , 1st Line. If inadequate response within 60 minutes, proceed to next-line agent or contact provider if no further options ordered. Patient should allow tablet to dissolve on tongue. Do not remove from blister pack until just before administering. oxyCODONE (Roxicodone) immediate release tablet 10 mg(Linked Group 3) 10 mg, Oral, Every 4 hours PRN, severe pain (7-10), Starting on 07/16/22 at 1400, 0613 (Given - Provider: Isabella Mcfadden RN)1013 (Given - Provider: Ada Dill RN)1414 (Given - Provider: Ada Dill RN)1818 (Given - Provider: Ada Dill RN)2217 (Given - Provider: Jessica Maguire RN) 0546 (Given - Provider: Jessica Maguire RN)1000 (Given - Provider: Genevieve Robert RN)1510 (Given - Provider: Nelson Benjamin RN)2120 (Given - Provider: Adelaida Doran RN) 0330 (Given - Provider: Shayna Chaidez, CRISS)0901 (Given - Provider: Dora Villegas RN)1414 (Given - Provider: Dora Villegas RN) oxyCODONE (Roxicodone) immediate release tablet 5 mg(Linked Group 3) 5 mg, Oral, Every 4 hours PRN, moderate pain (4-6), Starting on 07/16/22 at 1400, 0613 (See Alternative - Provider: Isabella Mcfadden, RN)1013 (See Alternative - Provider: Ada Dill, RN)1414 (See Alternative - Provider: Ada Dill, RN)1818 (See Alternative - Provider: Ada Dill, RN)2217 (See Alternative - Provider: Jessica Maguire, CRISS) 0546 (See Alternative - Provider: Jessica Maguire, RN)1000 (See Alternative - Provider: Genevieve Robert, CRISS)1510 (See Alternative - Provider: Nelson Benjamin, CRISS)2120 (See Alternative - Provider: Adelaida Doran, CRISS) 0330 (See Alternative - Provider: Shayna Chaidez, RN)0901 (See Alternative - Provider: Dora Villegas, RN)1414 (See Alternative - Provider: Dora Villegas RN) phenylephrine-mineral oil-petrolatum (Preparation H) ointment Rectal, 2 times daily PRN, hemorrhoids, Starting on 07/18/22 at 0014 simethicone (Mylicon) chewable tablet 80 mg 80 mg, Oral, Every 6 hours PRN, flatulence, cramping, Starting on 07/16/22 at 0625, 2217 (Given - Provider: Jessica Maguire, CRISS) sodium chloride 0.9 % infusion 5-250 mL/hr, IntraVENous, PRN, if patient receiving piggyback infusions and maintenance fluids are not ordered OR KVO fluids to protect IV site / prevent frequent line interruptions/ long duration, Starting on 07/16/22 at 0625, , For piggyback infusion, administer at same rate as piggyback for a total of 25 mL. Enter 25 mL into dose field and piggyback rate into rate field of order. If piggyback is infusing at a rate less than 100 mL/hr, enter 25 mL into dose field and 100 mL/hr into rate field of order. For KVO fluids, enter rate of 20 mL/hr or less into rate field of order. sodium chloride 0.9% (NS) flush 5-40 mL 5-40 mL, IntraVENous, PRN, line care, After every IV line use, Starting on 07/16/22 at 0625, , or Line Patency: Peripheral IV = 5 mL; Midline or Central Line = 10 mL/lumen. If following IV push medication, administer flush at same rate as the IV push. Flush volume is determined by type of infusion therapy being given. For non-viscous solutions use: Peripheral IV = 5 mL Midline or Central Line = 10 mL/lumen For viscous solutions (i.e. blood components, parenteral nutrition, contrast media, or after obtaining blood sample) use: Peripheral IV = 10 mL Midline or Central Line = 20 mL/lumen Linked Groups Order Group 1: HYDROmorphone (Dilaudid) injection 0.25 mgJump to med 0.25 mg, IntraVENous, Every 3 hours PRN, moderate pain (4-6), Starting on 07/16/22 at 1400,
If oral and IV narcotics ordered, use oral first and only use IV if oral is ineffective or cannot take oral. Do Not give oral and IV within 1 hour of each other unless specifically ordered.
Or HYDROmorphone (Dilaudid) injection 0.5 mgJump to med 0.5 mg, IntraVENous, Every 3 hours PRN, severe pain (7-10), Starting on 07/16/22 at 1400,
If oral and IV narcotics ordered, use oral first and only use IV if oral is ineffective or cannot take oral. Do Not give oral and IV within 1 hour of each other unless specifically ordered.
Group 2: ondansetron ODT (Zofran-ODT) disintegrating tablet 4 mgJump to med 4 mg, Oral, Every 8 hours PRN, nausea, vomiting, Starting on 07/16/22 at 0625,
1st Line. If inadequate response within 60 minutes, proceed to next-line agent or contact provider if no further options ordered. Patient should allow tablet to dissolve on tongue. Do not remove from blister pack until just before administering.
Or ondansetron (Zofran) injection 4 mgJump to med 4 mg, IntraVENous, Every 6 hours PRN, nausea, vomiting, Starting on 07/16/22 at 0625,
1st Line. Give IV if patient is unable to take orally. If inadequate response within 60 minutes, proceed to next-line agent or contact provider if no further options ordered.
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 Start Date End Date Yoselin Shannon MD [address] [place] [address] PCP - General Family Medicine 01/28/15 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 Start Date End Date Yoselin Shannon MD [address] [place] [address] PCP - General Family Practice 10/10/18 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 Start Date End Date Yoselin Shannon MD [address] [place] [address] PCP - General Family Practice 10/10/18 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 Start Date End Date Yoselin Shannon MD [address] [place] [address] PCP - General Family Practice 10/10/18 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 Start Date End Date Yoselin Shannon MD [address] [place] [address] PCP - General Family Practice 10/10/18 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 Start Date End Date Yoselin Shannon MD [address] [place] [address] PCP - General Family Practice 10/10/18 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 Start Date End Date Yoselin Shannon MD [address] [place] [address] PCP - General Family Medicine 10/10/18 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 Start Date End Date Yoselin Shannon MD [address] [place] [address] PCP - General Family Medicine 10/10/18 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 Start Date End Date Yoselin Shannon MD [address] [place] [address] PCP - General Family Medicine 10/10/18 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 Start Date End Date Yoselin Shannon MD [address] [place] [address] PCP - General Family Medicine 10/10/18 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 Start Date End Date Yoselin Shannon MD [address] [place] [address] PCP - General Family Medicine 10/10/18 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 Start Date End Date Yoselin Shannon MD [address] [place] [address] PCP - General Family Medicine 10/10/18 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 Start Date End Date Yoselin Shannon MD [address] [place] [address] PCP - General Family Medicine 10/10/18 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 Start Date End Date Yoselin Shannon MD [address] [place] [address] PCP - General Family Medicine 10/10/18 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 Start Date End Date Beatrice Parisi DO [address] [place] [address] PCP - General Family Medicine 04/10/22 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 [place] [address] [place] [address] PCP - General Family Medicine 04/10/22 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 Start Date End Date Beatrice Parisi DO [address] [facility] [place] [address] PCP - General Family Medicine 04/10/22 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 Start Date End Date Beatrice Parisi DO [address] [facility] [place] [address] PCP - General Family Medicine 04/10/22 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 Start Date End Date Beatrice Parisi DO [address] [place] [address] PCP - General Family Medicine 04/10/22 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 Start Date End Date Beatrice Parisi DO [address] [place] [address] PCP - General Family Medicine 04/10/22 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 Start Date End Date Beatrice Parisi DO [address] [place] [address] PCP - General Family Medicine 04/10/22 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 Start Date End Date Beatrice Parisi [address] [place] [address] (Fax) PCP - General Family Medicine 04/10/22 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 Start Date End Date Franky Parisialejandra [address] [place] [address] (Fax) PCP - General Family Medicine 04/10/22 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 Start Date End Date Beatrice Parisi DO [address] [place] [address] (Fax) PCP - General Family Medicine 04/10/22 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 [place] [address] [place] [address] (Fax) PCP - General Family Medicine 04/10/22 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 Start Date End Date Franky ParisiieDO [address] [place] [address] (Fax) PCP - General Family Medicine 04/10/22 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 Start Date End Date Rojelio Malone Cnw/Electrical JourneymanBeatrice [address] [place] [address] PCP - General Obstetrics and Gynecology 10/10/22 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 [place] [address] [place] [address] PCP - General Family Medicine 04/10/22 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 Start Date End Date Chago Gallego DO [address] [place] [address] PCP - General Family Medicine 11/23/22 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 Start Date End Date Beatrice Parisi DO [address] [place] [address] PCP - General Family Medicine 04/10/22 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 Start Date End Date Chago Gallego DO [address] [place] [address] PCP - General Family Medicine 11/23/22 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 Start Date End Date Chago Gallego DO [address] [place] [address] PCP - General Family Medicine 11/23/22 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 Start Date End Date Chago Gallego DO [address] [place] [address] PCP - General Family Medicine 11/23/22 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 Start Date End Date Beatrice Parisi DO PCP - General Family Medicine 04/10/22 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 Start Date End Date Chago Gallego DO [address] [place] [address] PCP - General Family Medicine 11/23/22 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 Start Date End Date Chago Gallego DO [address] [place] [address] PCP - General Family Medicine 11/23/22 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 Start Date End Date Chago Gallego DO [address] [place] [address] PCP - General Family Medicine 08/10/23 Uma Kelsey MD [address] [facility] [place] [id number] Resident Psychiatry 12/08/22 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 Start Date End Date Chago Gallego DO [address] [place] [address] PCP - General Family Medicine 11/23/22 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 Start Date End Date Chago Gallego DO [address] [place] [address] PCP - General Family Medicine 11/23/22 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 Start Date End Date Chago Gallego DO [address] [place] [address] PCP - General Family Medicine 11/23/22 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 Start Date End Date Chago Gallego DO [address] [place] [phone] PCP - General Family Medicine 08/10/23 Uma Kelsey MD [address] [place] [address] Resident Psychiatry 12/08/22 01/07/24 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 Start Date End Date Chago Gallego DO [address] [place] [address] PCP - General Family Medicine 08/10/23 Sheila Swartz DO [address] [place] [address] Psychiatry 01/08/24 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 Start Date End Date Chago Gallego DO [address] [place] [phone] PCP - General Family Medicine 08/10/23 Sheila Swartz DO [address] [place], [place] [id number] Psychiatry 01/08/24 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 Start Date End Date Chago Gallego DO [address] [place] [phone] PCP - General Family Medicine 08/10/23 Sheila Swartz DO [address] [place], [place] [id number] Psychiatry 01/08/24 Source Comments (unrecognize d section and content) In the event this informatio n is protected by the Federal Confidentiality of Alcohol and Drug Abuse Patient Records regulations: The Federal rules restrict any use of the information to criminally investigate or prosecute any alcohol or drug abuse patient.[facility] the event this information is protected by the Federal Confidentiality of Alcohol and Drug Abuse Patient Records regulations: The Federal rules restrict any use of the information to criminally investigate or prosecute any alcohol or drug abuse patient.[facility] HospitalIn the event this information is protected by the Federal Confidentiality of Alcohol and Drug Abuse Patient Records regulations: The Federal rules restrict any use of the information to criminally investigate or prosecute any alcohol or drug abuse patient.[facility] HospitalIn the event this information is protected by the Federal Confidentiality of Alcohol and Drug Abuse Patient Records regulations: The Federal rules restrict any use of the information to criminally investigate or prosecute any alcohol or drug abuse patient.[facility] HospitalIn the event this information is protected by the Federal Confidentiality of Alcohol and Drug Abuse Patient Records regulations: The Federal rules restrict any use of the information to criminally investigate or prosecute any alcohol or drug abuse patient.[facility] HospitalIn the event this information is protected by the Federal Confidentiality of Alcohol and Drug Abuse Patient Records regulations: The Federal rules restrict any use of the information to criminally investigate or prosecute any alcohol or drug abuse patient.[facility] HospitalIn the event this information is protected by the Federal Confidentiality of Alcohol and Drug Abuse Patient Records regulations: The Federal rules restrict any use of the information to criminally investigate or prosecute any alcohol or drug abuse patient.[facility] HospitalIn the event this information is protected by the Federal Confidentiality of Alcohol and Drug Abuse Patient Records regulations: The Federal rules restrict any use of the information to criminally investigate or prosecute any alcohol or drug abuse patient.[facility] HospitalIn the event this information is protected by the Federal Confidentiality of Alcohol and Drug Abuse Patient Records regulations: The Federal rules restrict any use of the information to criminally investigate or prosecute any alcohol or drug abuse patient.[facility] HospitalIn the event this information is protected by the Federal Confidentiality of Alcohol and Drug Abuse Patient Records regulations: The Federal rules restrict any use of the information to criminally investigate or prosecute any alcohol or drug abuse patient.[facility] HospitalIn the event this information is protected by the Federal Confidentiality of Alcohol and Drug Abuse Patient Records regulations: The Federal rules restrict any use of the information to criminally investigate or prosecute any alcohol or drug abuse patient.[facility] HospitalIn the event this information is protected by the Federal Confidentiality of Alcohol and Drug Abuse Patient Records regulations: The Federal rules restrict any use of the information to criminally investigate or prosecute any alcohol or drug abuse patient.[facility] HospitalIn the event this information is protected by the Federal Confidentiality of Alcohol and Drug Abuse Patient Records regulations: The Federal rules restrict any use of the information to criminally investigate or prosecute any alcohol or drug abuse patient.[facility] HospitalIn the event this information is protected by the Federal Confidentiality of Alcohol and Drug Abuse Patient Records regulations: The Federal rules restrict any use of the information to criminally investigate or prosecute any alcohol or drug abuse patient.[facility] HospitalIn the event this information is protected by the Federal Confidentiality of Alcohol and Drug Abuse Patient Records regulations: The Federal rules restrict any use of the information to criminally investigate or prosecute any alcohol or drug abuse patient.[facility] HospitalIn the event this information is protected by the Federal Confidentiality of Alcohol and Drug Abuse Patient Records regulations: The Federal rules restrict any use of the information to criminally investigate or prosecute any alcohol or drug abuse patient.[facility] HospitalIn the event this information is protected by the Federal Confidentiality of Alcohol and Drug Abuse Patient Records regulations: The Federal rules restrict any use of the information to criminally investigate or prosecute any alcohol or drug abuse patient.[facility] HospitalIn the event this information is protected by the Federal Confidentiality of Alcohol and Drug Abuse Patient Records regulations: The Federal rules restrict any use of the information to criminally investigate or prosecute any alcohol or drug abuse patient.[facility] HospitalIn the event this information is protected by the Federal Confidentiality of Alcohol and Drug Abuse Patient Records regulations: The Federal rules restrict any use of the information to criminally investigate or prosecute any alcohol or drug abuse patient.[facility] HospitalIn the event this information is protected by the Federal Confidentiality of Alcohol and Drug Abuse Patient Records regulations: The Federal rules restrict any use of the information to criminally investigate or prosecute any alcohol or drug abuse patient.[facility] HospitalIn the event this information is protected by the Federal Confidentiality of Alcohol and Drug Abuse Patient Records regulations: The Federal rules restrict any use of the information to criminally investigate or prosecute any alcohol or drug abuse patient.[facility] HospitalIn the event this information is protected by the Federal Confidentiality of Alcohol and Drug Abuse Patient Records regulations: The Federal rules restrict any use of the information to criminally investigate or prosecute any alcohol or drug abuse patient.[facility] HospitalIn the event this information is protected by the Federal Confidentiality of Alcohol and Drug Abuse Patient Records regulations: The Federal rules restrict any use of the information to criminally investigate or prosecute any alcohol or drug abuse patient.[facility] HospitalIn the event this information is protected by the Federal Confidentiality of Alcohol and Drug Abuse Patient Records regulations: The Federal rules restrict any use of the information to criminally investigate or prosecute any alcohol or drug abuse patient.[facility] HospitalIn the event this information is protected by the Federal Confidentiality of Alcohol and Drug Abuse Patient Records regulations: The Federal rules restrict any use of the information to criminally investigate or prosecute any alcohol or drug abuse patient.[facility] HospitalIn the event this information is protected by the Federal Confidentiality of Alcohol and Drug Abuse Patient Records regulations: The Federal rules restrict any use of the information to criminally investigate or prosecute any alcohol or drug abuse patient.[facility] HospitalIn the event this information is protected by the Federal Confidentiality of Alcohol and Drug Abuse Patient Records regulations: The Federal rules restrict any use of the information to criminally investigate or prosecute any alcohol or drug abuse patient.[facility] HospitalIn the event this information is protected by the Federal Confidentiality of Alcohol and Drug Abuse Patient Records regulations: The Federal rules restrict any use of the information to criminally investigate or prosecute any alcohol or drug abuse patient.[facility] HospitalIn the event this information is protected by the Federal Confidentiality of Alcohol and Drug Abuse Patient Records regulations: The Federal rules restrict any use of the information to criminally investigate or prosecute any alcohol or drug abuse patient.[facility] HospitalIn the event this information is protected by the Federal Confidentiality of Alcohol and Drug Abuse Patient Records regulations: The Federal rules restrict any use of the information to criminally investigate or prosecute any alcohol or drug abuse patient.[facility] HospitalIn the event this information is protected by the Federal Confidentiality of Alcohol and Drug Abuse Patient Records regulations: The Federal rules restrict any use of the information to criminally investigate or prosecute any alcohol or drug abuse patient.[facility] HospitalIn the event this information is protected by the Federal Confidentiality of Alcohol and Drug Abuse Patient Records regulations: The Federal rules restrict any use of the information to criminally investigate or prosecute any alcohol or drug abuse patient.[facility] HospitalIn the event this information is protected by the Federal Confidentiality of Alcohol and Drug Abuse Patient Records regulations: The Federal rules restrict any use of the information to criminally investigate or prosecute any alcohol or drug abuse patient.[facility] HospitalIn the event this information is protected by the Federal Confidentiality of Alcohol and Drug Abuse Patient Records regulations: The Federal rules restrict any use of the information to criminally investigate or prosecute any alcohol or drug abuse patient.[facility] HospitalIn the event this information is protected by the Federal Confidentiality of Alcohol and Drug Abuse Patient Records regulations: The Federal rules restrict any use of the information to criminally investigate or prosecute any alcohol or drug abuse patient.[facility] HospitalIn the event this information is protected by the Federal Confidentiality of Alcohol and Drug Abuse Patient Records regulations: The Federal rules restrict any use of the information to criminally investigate or prosecute any alcohol or drug abuse patient.[facility] HospitalIn the event this information is protected by the Federal Confidentiality of Alcohol and Drug Abuse Patient Records regulations: The Federal rules restrict any use of the information to criminally investigate or prosecute any alcohol or drug abuse patient.[facility] HospitalIn the event this information is protected by the Federal Confidentiality of Alcohol and Drug Abuse Patient Records regulations: The Federal rules restrict any use of the information to criminally investigate or prosecute any alcohol or drug abuse patient.[facility] HospitalIn the event this information is protected by the Federal Confidentiality of Alcohol and Drug Abuse Patient Records regulations: The Federal rules restrict any use of the information to criminally investigate or prosecute any alcohol or drug abuse patient.[facility] HospitalIn the event this information is protected by the Federal Confidentiality of Alcohol and Drug Abuse Patient Records regulations: The Federal rules restrict any use of the information to criminally investigate or prosecute any alcohol or drug abuse patient.[facility] HospitalIn the event this information is protected by the Federal Confidentiality of Alcohol and Drug Abuse Patient Records regulations: The Federal rules restrict any use of the information to criminally investigate or prosecute any alcohol or drug abuse patient.[facility] HospitalIn the event this information is protected by the Federal Confidentiality of Alcohol and Drug Abuse Patient Records regulations: The Federal rules restrict any use of the information to criminally investigate or prosecute any alcohol or drug abuse patient.[facility] HospitalIn the event this information is protected by the Federal Confidentiality of Alcohol and Drug Abuse Patient Records regulations: The Federal rules restrict any use of the information to criminally investigate or prosecute any alcohol or drug abuse patient.[facility] HospitalIn the event this information is protected by the Federal Confidentiality of Alcohol and Drug Abuse Patient Records regulations: The Federal rules restrict any use of the information to criminally investigate or prosecute any alcohol or drug abuse patient.[facility] [facility] FOR RECORDS PERTAINING TO PATIENTS WHO ARE OR HAVE BEEN ENROLLED IN A CHEMICAL DEPENDENCY/SUBSTANCEABUSE PROGRAM, SOME INFORMATION MAY BE OMITTED. This clinical summary was aggregated from multiple sources. Caution should be exercised in using it in the provision of clinical care. This summary normalizes information from multiple sources, and as a consequence, information in this document may materially change the coding, format and clinical context of patient data. In addition, data may be omitted in some cases. CLINICAL DECISIONS SHOULD BE BASED ON THE PRIMARY CLINICAL RECORDS. [facility]. provides no warranty or guarantee of the accuracy or completeness of information in this document.
== END 2024-01-15 14:50 | disposition home or self-care (01) ==
LOC: EN 11:44 → AC 11:45
PROVIDERS: Anesthesiology; PCP Internal Medicine; Referring Provider Internal Medicine Gastroenterology; Visit Provider Internal Medicine Gastroenterology
PROC: 0DJ08ZZ Inspection of Upper Intestinal Tract, Via Natural or Artificial Opening Endoscopic (ICD-10-PCS; CPT 43235; principal; 2024-01-15 12:55)
DX: K22.70 Barrett's esophagus without dysplasia (principal); K44.9 Diaphragmatic hernia without obstruction or gangrene; K21.00 Gastro-esophageal reflux disease with esophagitis, without bleeding; Z80.0 Family history of malignant neoplasm of digestive organs; Z79.899 Other long term (current) drug therapy
CPT/HCPCS: 43239; 43248; 81025; 88305; 88312; 88341; 88342; A4216; C1769; J2405

== ENCOUNTER → 2024-02-11 | Outpatient (CLI) | payer MEDICAID, SELFPAY ==
[2024-02-11 11:28] LABS: Erythrocyte Sedimentation Rate 8 mm/hr (0-30)
[2024-02-11 13:19] LABS: CRP < 2.90 mg/L (0.0-3.0)
[2024-02-19 09:09] LABS: ACCA 14 units (0-90); ALCA 21 units (0-60); AMCA 29 units (0-100); Albumin 4.3 g/dL (2.9-4.4); Alpha-1-Globulins 0.2 g/dL (0.0-0.4); Alpha-2-Globulins 0.8 g/dL (0.4-1.0); Gamma Globulin 1.2 g/dL (0.4-1.8); Immunoglobulin A 258 mg/dL (87-352); Immunoglobulin E 33 IU/mL (6-495); Immunoglobulin G 1221 mg/dL (586-1602); Immunoglobulin M 92 mg/dL (26-217); PROEL- TOTAL PROTEIN 7.6 g/dL (6.0-8.5); gASCA 25 units (0-50)
== END | disposition home or self-care (01) ==
LOC: LAB 10:35
PROVIDERS: PCP Internal Medicine; Referring Provider Student in an Organized Health Care Education/Training Program; Visit Provider Student in an Organized Health Care Education/Training Program
DX: K63.9 Disease of intestine, unspecified (principal)
CPT/HCPCS: 36415; 82784; 82785; 83516; 84165; 85652; 86036; 86140; 86334; 86671

== ENCOUNTER 2024-02-22 08:18 | Day surgery (SDC) | payer MEDICAID, SELFPAY ==
[2024-02-22 08:30] VITALS: BP 129/89; PULSE 88; RESP 16; TEMP 36.4; O2SAT 100
[2024-02-22] MEDS: Lidocaine Jelly 2% 20 ML Syringe (URO-JET) 1 APPLIC (08:34)
== END 2024-02-22 09:01 | disposition home or self-care (01) ==
PROVIDERS: PCP Internal Medicine; Referring Provider Internal Medicine; Visit Provider Surgery
PROC: F00ZJWZ Instrumental Swallowing and Oral Function Assessment using Swallowing Equipment (ICD-10-PCS; CPT 43235; principal; 2024-02-22 07:55)
DX: K21.9 Gastro-esophageal reflux disease without esophagitis (principal)
CPT/HCPCS: 91010

== ENCOUNTER → 2024-02-28 | Outpatient (CLI) | payer MEDICAID, SELFPAY ==
--- NOTE | 2024-02-28 09:15 | RAD_ITS ---
STUDY: AIR CONTRAST ESOPHAGRAM AND UPPER GI SERIES REASON FOR EXAM: Female, 33 years old. K21.9 - Gastro-esophageal reflux disease without esophagitis FLUOROSCOPY TIME (if supplied): (1 minute 11 seconds) minutes/seconds. 2.77 mgy. 71 fluoroscopic images were obtained. TECHNIQUE: SINGLE CONTRAST AND AIR CONTRAST FLUOROSCOPIC IMAGES. COMPARISON: None. FINDINGS: The cervical esophagus demonstrates normal motility without aspiration. There is no stricture or extrinsic mass effect. No intraluminal polypoid mass is identified. The thoracic esophagus distends well without stricture or mucosal fold thickening. No mucosal ulcerations are identified. There is no extrinsic mass effect. There are no diverticula. No hiatal hernia or gastroesophageal reflux was identified. The patient ingested a 12 mm tablet of barium without any difficulty. The stomach distends well without mucosal fold thickening or mucosal ulceration. There is no intraluminal mass. The duodenal bulb is freely distensible without deformity or ulceration. The duodenal sweep is normal in position and caliber. RAD/Upper GI w/BA Swallow IMPRESSION: Normal esophagram and air-contrast upper GI series. Electronically Signed: Nick Mcelroy MD at 13:25 [facility] ,
== END | disposition home or self-care (01) ==
LOC: RAD 09:09
PROVIDERS: PCP Internal Medicine; Referring Provider Surgery; Visit Provider Surgery
DX: K21.9 Gastro-esophageal reflux disease without esophagitis (principal)
CPT/HCPCS: 74246

== ENCOUNTER 2024-05-23 12:17 | Observation (INO) | payer MEDICAID, SELFPAY ==
--- NOTE | 2024-04-23 08:53 | EKG12_ITS ---
Test Reason : PRE OP Blood Pressure : */* mmHG Vent. Rate : 84 BPM Atrial Rate : 84 BPM P-R Int : 150 ms QRS Dur : 90 ms QT Int : 366 ms P-R-T Axes : 75 78 58 degrees QTcB Int : 432 ms Normal sinus rhythm Possible Left atrial enlargement Borderline ECG Confirmed by SHAN ADLER, BISHNU ([id number]), web content editor YUMI HALL ([id number]) on 04/23/2024 10:51:21 AM Referred By: Hermelindo Presley Confirmed By: BISHNU TORREZ MD
[2024-04-23 10:18] LABS: Hematocrit 41.2 % (37-47); Hemoglobin 12.8 g/dL (12.0-15.0); Mean Corp Hgb Conc 31.1 g/dL (32-36); Mean Corpuscular Hgb 24.8 pg (27.0-32.0); Mean Corpuscular Volume 79.8 fL (81-99); Mean Platelet Vol. 9.6 fl (6.2-12.0); Platelet Count 360 K/mm3 (150-450); RBC Distribution Width CV 13.2 % (11.6-14.6); RBC Distribution Width SD 37.6 fl (35.1-43.9); Red Blood Count 5.16 M/mm3 (4.2-5.4); White Blood Count 6.8 K/mm3 (4.4-11.0)
[2024-04-23 10:25] LABS: International Normalized Ratio 0.9; Partial Thromboplast Time 31.8 Seconds (24.1-36.2); Prothrombin Time (Protime)PT. 12.7 SECONDS (11.7-14.9)
[2024-04-23 10:47] LABS: AST(SGOT) 11 U/L (15-37); Alanine Aminotransfer ALT/SGPT 18 U/L (13-56); Albumin, Serum 4.1 g/dL (3.2-5.0); Alkaline Phosphatase 65 U/L (45-117); Anion Gap 7 (5-15); BUN 10 mg/dL (7-18); BUN/Creat Ratio 12.6 RATIO (10-20); Bilirubin, Direct 0.11 mg/dL (0.00-0.30); Calcium,Total 9.4 mg/dL (8.5-10.1); Chloride 108 mmol/L (98-107); Creatinine, Serum 0.79 mg/dL (0.55-1.02); EST Glomerular Filtration Rate 89 mL/min (>60); Est Glom Filt Rate - Afr Amer 108 mL/min (>60); Globulin 4.1 g/dL (2.2-4.2); Glucose 85 mg/dL (74-106); Potassium 3.9 mmol/L (3.5-5.1); Protein, Total 8.2 g/dL (6.4-8.2); Sodium Level 140 mmol/L (136-145)
--- NOTE | 2024-04-24 12:13 | PAT.ANESEVAL ---
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 When Was Last Pacemaker Check QUESTION #4 FULL TEXT: You/Your Family Experience fever (hyperthermia) with Anesthesia Last Oral Intake Last Oral intake: Last Oral Intake NPO since Meds taken in AM with sips of water? Meds patient instructed to take am of surgery PONV PONV - hazmat technician: PONV - hazmat technician Female Yes 04/22/24 14:48 HX of Motion Sickness Yes 04/22/24 14:48 HX of N/V After Surgery No 04/22/24 14:48 Non-Smoker Yes 04/22/24 14:48 Duration of Surgery greater Yes 04/22/24 14:48 than 60 minutes Number of Risk Factors 4 04/22/24 14:48 PONV Score Severe Risk 04/22/24 14:48 Height & Weight Height & Weight: Anesthesia: Height & Weight Height 5 ft 8 in 03/17/24 09:54 Respiratory Assessment Respiratory Assessment - hazmat technician: Respiratory Tract Infection Hx - hazmat technician Hx Respiratory Tract Infection No 04/22/24 14:48 STOP Sleep Apnea STOP Sleep Apnea - hazmat technician: STOP Sleep Apnea - hazmat technician Hx Hypertension No 04/22/24 14:48 Hx Sleep Apnea No 04/22/24 14:48 CPAP BIPAP Do you snore loudly (louder No 04/22/24 14:48 than talking or can be heard Do you often feel tired/ Yes 04/22/24 14:48 fatigued/ sleepy during daytime? Has anyone observed you stop No 04/22/24 14:48 breathing during sleep? STOP Results Negative 04/22/24 14:48 QUESTION #5 FULL TEXT : Do you snore loudly (louder than talking or can be heard through closed doors)? Tobacco Use History Tobacco Use History - hazmat technician: Tobacco Use History - hazmat technician Tobacco Use Smoking Status Never smoker 04/22/24 14:48 Hx Tobacco Use No 04/22/24 14:48 Years Smoking Packs Smoked per Day Smoking Cessation Date was within the last 15 years Hx Smoking Cessation Date Hx Smoking Cessation Counseling Hematologic Medial History Hematologic Hx - hazmat technician: Hematologic Medical Hx - primer expeditor and drier Hx of Blood Transfusion No 04/22/24 14:48 Hx of Transfusion in last 3 No 04/22/24 14:48 Months Date of Last Transfusion (if within last 3 months) Ever experience any problems No 04/22/24 14:48 with transfusion(s)? Specify any problems Hx of Preganancy in last 3 No 04/22/24 14:48 Months Nurse Filling Out Transfusion DSCHRIBER 04/22/24 14:48 & Questions: Date: 04/22/24 04/22/24 14:48 Time: 14:50 04/22/24 14:48 Patient unable to answer at this time (ie. confused, unrespo /Reproduction History /Reproductive History - hazmat technician: /Reproductive Hx- hazmat technician Hx Now No 04/22/24 14:48 Gestational Age (in weeks): EDC: Hx Hx Para Hx Section SAB No 04/22/24 14:48 PFSH Medical History Easy bruising Blackout Asthma Interstitial cystitis Migraine headache History of hiatal hernia Shortness of breath on exertion History of echocardiogram GERD (gastroesophageal reflux disease) Disease of intestine, unspecified Colonic thickening Abnormal finding on MRI of brain Depression Anxiety Low iron Non-smoker Family history of colon cancer in father Thrombosed hemorrhoids Anemia PTSD (post-traumatic stress disorder) MTHFR mutation Home Medications ?Medication ?Instructions ?Recorded ?Last Taken ?Type prazosin 1 mg capsule 3 mg PO QHS 01/14/24 Unknown History pantoprazole 40 mg tablet,delayed 40 mg PO QDAY #60 tabs 02/27/24 Unknown Rx release BEET ROOT 1 cap PO DAILY 04/22/24 Unknown History CLORAPHIL 1 cap PO DAILY 04/22/24 Unknown History FEVER FEW 1 cap PO DAILY 04/22/24 Unknown History GOTUKOLA 1 cap PO DAILY 04/22/24 Unknown History Lactobacillus acidophilus 250 500 mmu cells PO DAILY 04/22/24 Unknown History million cell capsule (Probiotic Acidophilus) MARSHMELLOW ROOT 1 cap PO DAILY 04/22/24 Unknown History boron 6 mg tablet 6 mg PO DAILY 04/22/24 Unknown History bupropion HCl 150 mg 24 hr tablet, 150 mg PO DAILY 04/22/24 Unknown History extended release ferrous sulfate 325 mg (65 mg 325 mg PO DAILY 04/22/24 Unknown History iron) tablet magnesium 250 mg tablet 250 mg PO DAILY 04/22/24 Unknown History zinc gluconate 50 mg tablet 50 mg PO DAILY 04/22/24 Unknown History adrenal complex PO 04/23/24 Unknown History berberine chloride 500 mg capsule 1,500 mg PO 04/23/24 Unknown History black currant seed oil .Route 04/23/24 Unknown History calcium acetate PO 04/23/24 Unknown History levomefolate 15 mg-algal oil 1 cap PO QDAY 04/23/24 Unknown History 90.314 mg capsule (L-Methylfolate Forte) pyridoxine (vitamin B6) PO 04/23/24 Unknown History sunflower lecithin PO 04/23/24 Unknown History Allergy/AdvReac Type Severity Reaction Status Date / Time adhesive Allergy Severe Hives Verified 04/23/24 08:16 latex Allergy Severe Hives Verified 04/23/24 08:16 soy Allergy Severe Anaphylaxis Verified 04/23/24 08:16 phenazopyridine (From Allergy Mild hives Verified 04/23/24 08:16 Pyridium) silver sulfadiazine (From Allergy Mild Hives Verified 04/23/24 08:16 Silvadene) Sulfa (Sulfonamide Allergy Mild Hives Verified 04/23/24 08:16 Antibiotics) azithromycin Allergy Hives Verified 04/23/24 08:16 nitrofurantoin Allergy Hives Verified 04/23/24 08:16 tetracycline Allergy Hives Verified 04/23/24 08:16 Family History Mother Aortic valve, bicuspid PTSD (post-traumatic stress disorder) Anemia Depression Ovarian cyst Father Crohn's disease Schizophrenia Aunt Schizophrenia Grandfather Cancer melanoma CVA (cerebral vascular accident) Surgical History History of esophagogastroduodenoscopy (EGD) History of H/O cystoscopy Hx of colonoscopy S/P wrist surgery Social History household members: children housing: house current occupational status: unemployed Smoking Status: Never smoker Electronic Cigarette Use: not used alcohol intake: never substance use type: does not use what type of physical activity do you participate in: none seatbelt use: always do you feel safe at home: Yes Audit: Pertinent Findings Pertinent Findings EKG Perinent findings: April 23, 2024. Normal sinus rhythm. Possible left atrial enlargement. Recommendation Anesthesia Recommendation Anesthesia recommendation: OPTIMIZED for anesthesia
[2024-05-23] VITALS (21 sets, daily range): BP systolic 105–124; BP diastolic 65–85; PULSE 77–101; RESP 14–18; TEMP 36.6–36.9; O2SAT 93–100; BMI 29.5
[2024-05-23 06:34] LABS: Internal QC Validated? YES +Cl - CLEAR BKGD; Pregnancy, Urine Negative Negative
--- NOTE | 2024-05-23 06:47 | PCM.HP.BLA ---
History and Physical Date of Admission: 05/23/24 Date of Service: 04/23/24 MR#: [id number] Acct: [id number] Name: RG KELLEY Rep #: [id number] : 1990 Provider: Dr. Hermelindo Presley MD Age/Sex: 33/F Location: [facility] Status: Signed Intake Vital Signs 03/17/2409:54 04/23/2507:15 Height 5 ft 8 in 5 ft 8 in Weight: 192 lb 193 lb BMI 29.2 29.3 BP 115/77 115/77 Blood Pressure Location Rt brachial Rt brachial Position Sitting Sitting Respiration 16 18 Pulse 65 Pulse Source Monitor Temp 97.3 F L Temp Source Temporal Pulse Oximetry (%) 99 Oxygen Delivery Method room air Intake Visit Reasons: R SIDE PAIN - POSSIBLE HERNIA Chief Complaint: r side pain- possible hernia Accompanied by: mom and kids Is patient in pain?: Yes Allergies adhesive Allergy (Severe, Verified 04/23/24 08:16) Hiveslatex Allergy (Severe, Verified 04/23/24 08:16) Hivessoy Allergy (Severe, Verified 04/23/24 08:16) Anaphylaxisphenazopyridine (From Pyridium) Allergy (Mild, Verified 04/23/24 08:16) hivessilver sulfadiazine (From Silvadene) Allergy (Mild, Verified 04/23/24 08:16) HivesSulfa (Sulfonamide Antibiotics) Allergy (Mild, Verified 04/23/24 08:16) Hivesazithromycin Allergy (Verified 04/23/24 08:16) Hivesnitrofurantoin Allergy (Verified 04/23/24 08:16) Hivestetracycline Allergy (Verified 04/23/24 08:16) Hives PFSH Medical History Easy bruising Blackout Asthma Interstitial cystitis Migraine headache History of hiatal hernia Shortness of breath on exertion History of echocardiogram GERD (gastroesophageal reflux disease) Disease of intestine, unspecified Colonic thickening Abnormal finding on MRI of brain Depression Anxiety Low iron Non-smoker Family history of colon cancer in father Thrombosed hemorrhoids Anemia PTSD (post-traumatic stress disorder) MTHFR mutation Surgical History History of esophagogastroduodenoscopy (EGD) History of H/O cystoscopy Hx of colonoscopy S/P wrist surgery Family History Mother Aortic valve, bicuspid PTSD (post-traumatic stress disorder) Anemia Depression Ovarian cystFather Crohn's disease SchizophreniaAunt SchizophreniaGrandfather Cancer melanoma CVA (cerebral vascular accident) Social History household members: children housing: house current occupational status: unemployed Smoking Status: Never smoker Electronic Cigarette Use: not used alcohol intake: never substance use type: does not use what type of physical activity do you participate in: none seatbelt use: always do you feel safe at home: Yes HPI HPI HPI: Patient is a 33-year-old female currently awaiting an operative date of 05/06/2024 to undergo antireflux surgery but raised the concern of some new right-sided abdominal discomfort with further details that were suggestive of possible hernia. She was last seen in our office for preoperative consultation on 03/17/2024. She presents today with her mother and children. She shares that just to the right of her umbilicus she feels a pop when she sneezes or coughs. She notes that this started first when she was constipated on the toilet had been straining. She further adds that there is some numbness when it pops out. Lastly she gestures to the left side of her abdomen where she states that she has ongoing abdominal discomfort and questions whether or not this may be related to her noted cecal thickening. She expressly denies any history of bloody bowel movements. Lastly we discussed that patient has had occasional chest/upper abdominal discomfort on the left. She questions whether or not this is perhaps related to her hiatal hernia. Her mother asked whether or not it is potentially related to stress more generically. She is pending an EKG following this visit. ROS General General: No weight change, appetite, fatigue, colon cancer, breast cancer or weakness HEENT HEENT: No difficulty swallowing, eye injury, eye surgery, swollen glands or hoarseness Endo Endocrine: No thyroid disease, diabetes mellitus, thyroid cancer, Hair loss, heat intolerance or cold intolerance Skin Skin: No rash or changing moles Breast Breast: No left breast lump, right breast lump, nipple discharge, breast pain, abnormal mammogram, abnormal US or breast enlargement Musc Musculoskeletal: No back problems, arthritis, rheumatoid arthritis, gout or joint pain Cardio Cardiovascular: No murmur, pacemaker, heart disease, atrial fibrillation, high blood pressure, heart attack, heart stent, palpitations, shortness of breat with exertion or chest pain Psych Psychiatric: No depression, anxiety or hearing voices Resp Respiratory: No shortness of breath, No sleep apnea, No cough, No COPD, No asthma, No emphysema and No wheezing Gastro Gastrointestinal: No abdominal pain, No nausea or vomiting, No diarrhea, No constipation, No blood in stool, No acid reflux, No hemorrhoids, No ulcers, No gallbladder problem and No black,tarry stools Uri Hematologic: No blood thinners, No blood disorders, No bleeding, No anemia and No blood clots Neuro Neurologic: No system reviewed and no additional complaints, except as documented, No as per HPI, No abnormal gait, No abnormal hearing, No abnormal movements, No abnormal speech, No behavioral changes, No burning sensations, No confusion, No convulsions, No disequilibrium, No dizziness, No localized weakness, No frequent falls, No headache(s), No lack of coordination, No loss of vision, No memory loss, No numbness, No other visual disturbances, No radicular pain, No restless legs, No sensory deficit, No syncope, No tingling, No tremor(s), No weakness and No other Exam Const General: cooperative and comfortable Orientation: alert, awake and oriented x3 Resp Effort & Inspection: normal respiratory effort GI Other: Nondistended, soft, mild tenderness to deep palpation just to the right of the umbilicus and then over the left lower quadrant. I do not palpate any discrete hernia defects and where patient describes tenderness is centered over the right rectus muscle belly. Assessment and Plan Assessment and Plan (1) Abdominal pain: Status: Acute Comment: Patient describes rather recent onset right-sided abdominal discomfort that began with a period of constipation. Although her history is suggestive of a hernia of the location of her discomfort and her exam are not suggestive of a hernia. Specifically, patient gestures to a location within the region of her right rectus belly as being the focus of her discomfort. I neither feel a hernia defect nor can suspect one as patient had CT imaging in September that showed no irregularities and it would be an unusual location to develop a hernia with the buttress effect provided by the muscle in that location. We did discuss her CT finding of some cecal thickening and how she has ongoing discomfort in the left lower quadrant. I clarified that her cecum is not located in this area and therefore I do not find cause to repeat her colonoscopy which was just done by me in August 2023. I did suggest that loose or bloody stools would be more of an indication and would consider cecal biopsy for any microscopic signs of pathology as grossly there were no signs of abnormality at her colonoscopy. Concerning her presenting complaints of right sided popping and possible hernia, I do not believe a CT scan would be additive to her workup, but instead offer that I will be happy to perform an internal exam at the time of her pending antireflux surgery via laparoscopy. I even offered that if a small fascial defect was appreciated from this vantage point it could be primarily closed. I did stipulate that it would be a suture?only repair as I would not want to use mesh and a potentially contaminated field with cross-contamination of gastric bacteria. Patient expressed understanding. Lastly, I suggested that patient's complaints of left upper quadrant discomfort were likely related to her present hiatal hernia. Plan: Plan to proceed with hiatal hernia repair and fundoplication as scheduled on 05/16/2024. Patient is encouraged to begin a bowel regimen ahead of surgery to mitigate her risk for postoperative constipation. Will await the results of her pending EKG. Intraoperatively will plan to evaluate patient's abdominal wall with laparoscopy. I have examined the patient and the H&P has been reviewed. There are no clinical changes since date of exam. Patient presents today for laparoscopic hiatal hernia repair and fundoplication. Original date had to be postponed on account of my illness. Patient and her are very understanding. Several questions are taken from them and answered to their satisfaction. I then provided an overview of the operation and the postprocedural expectations. Consents were also confirmed. Proceed to the OR for procedure as planned.
[2024-05-23] MEDS: 0.9% Normal Saline (1000mL) 1,000 ML 15 ML IV (06:57)
--- NOTE | 2024-05-23 07:05 | PRE.ANES_ITS ---
ASA Classification* ASA Classification ASA Classification: 2 Assessment & Plan Anesthesia* Anesthesia Assessment Anesthesia Assessment: Discussed sedation and/or anesthesia options, risks, benefits, and alternatives with patient/parents/legal guardian/POA. Questions invited. The patient/parents/legal guardian/POA seems to understand and agrees to proceed with anesthesia plan. Reviewed the physical assessment, medical history, allergy history and patient home medications list prior to surgery/procedure/anesthetic and documented any changes. Performed airway and anesthesia risk assessments. Anesthesia Type Anesthesia Type: General Anesthesia Focused Assessment* Temperature: 98.2 F Pulse Rate: 82 Blood Pressure: 111/79 Respiratory Rate: 16 Pulse Ox: 100 Airway Assessment Mouth opens: >3 cm Mallampati Score: II Focused Labs Anesthesia Preop lab: CBC WBC 6.8 K/mm3 (4.4-11.0) 04/23/24 09:04/23/24 RBC 5.16 M/mm3 (4.2-5.4) 04/23/24 09:04/23/24 Hgb 12.8 g/dL (12.0-15.0) 04/23/24 09:04/23/24 Hct 41.2 % (37-47) 04/23/24 09:04/23/24 Plt Count 360 K/mm3 (150-450) 04/23/24 09:32 04/23/24 CHEMISTRY Potassium 3.9 mmol/L (3.5-5.1) 04/23/24 09:04/23/24 Sodium 140 mmol/L (136-145) 04/23/24 09:32 04/23/24 BUN 10 mg/dL (7-18) 04/23/24 09:32 04/23/24 Creatinine 0.79 mg/dL (0.55-1.02) 04/23/24 09:04/23/24 Glucose 85 mg/dL (74-106) 04/23/24 09:04/23/24 TSH 1.33 uIU/mL (0.358-3.74) 02/26/23 11:52 COAG PT 12.7 SECONDS (11.7-14.9) 04/23/24 09:32 Urine Test Negative Negative 05/23/24 06:15 05/23/24 Pre-Assessment Diagnosis/Proposed Procedure Planned Operative Procedure(s): LAP HIATAL HERNIA TOUPET FUNDOPLICATION Anesthesia History 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 When Was Last Pacemaker Check QUESTION #4 FULL TEXT: You/Your Family Experience fever (hyperthermia) with Anesthesia Last Oral Intake Last Oral intake: Last Oral Intake NPO since 10:30 05/23/24 06:51 Meds taken in AM with sips of water? Meds patient instructed to take am of surgery PONV PONV - optical fabrication technician: PONV - optical fabrication technician Female Yes 04/22/24 14:48 HX of Motion Sickness Yes 04/22/24 14:48 HX of N/V After Surgery No 04/22/24 14:48 Non-Smoker Yes 04/22/24 14:48 Duration of Surgery greater Yes 04/22/24 14:48 than 60 minutes Number of Risk Factors 4 04/22/24 14:48 PONV Score Severe Risk 04/22/24 14:48 Height & Weight Height & Weight: Anesthesia: Height & Weight Height 5 ft 8 in 05/23/24 06:51 Weight: 88 kg 05/23/24 06:51 Body Mass Index (BMI) 29.5 05/23/24 06:51 Respiratory Assessment Respiratory Assessment - optical fabrication technician: Respiratory Tract Infection Hx - optical fabrication technician Hx Respiratory Tract Infection No 04/22/24 14:48 STOP Sleep Apnea STOP Sleep Apnea - optical fabrication technician: STOP Sleep Apnea - optical fabrication technician Hx Hypertension No 04/22/24 14:48 Hx Sleep Apnea No 04/22/24 14:48 CPAP BIPAP Do you snore loudly (louder No 04/22/24 14:48 than talking or can be heard Do you often feel tired/ Yes 04/22/24 14:48 fatigued/ sleepy during daytime? Has anyone observed you stop No 04/22/24 14:48 breathing during sleep? STOP Results Negative 04/22/24 14:48 QUESTION #5 FULL TEXT : Do you snore loudly (louder than talking or can be heard through closed doors)? Tobacco Use History Tobacco Use History - optical fabrication technician: Tobacco Use History - optical fabrication technician Tobacco Use Smoking Status Never smoker 04/22/24 14:48 Hx Tobacco Use No 04/22/24 14:48 Years Smoking Packs Smoked per Day Smoking Cessation Date was within the last 15 years Hx Smoking Cessation Date Hx Smoking Cessation Counseling Hematologic Medial History Hematologic Hx - optical fabrication technician: Hematologic Medical Hx - steam hand Hx of Blood Transfusion No 04/22/24 14:48 Hx of Transfusion in last 3 No 04/22/24 14:48 Months Date of Last Transfusion (if within last 3 months) Ever experience any problems No 04/22/24 14:48 with transfusion(s)? Specify any problems Hx of Preganancy in last 3 No 04/22/24 14:48 Months Nurse Filling Out Transfusion [email or web address] 04/22/24 14:48 & Questions: Date: 04/22/24 04/22/24 14:48 Time: 14:50 04/22/24 14:48 Patient unable to answer at this time (ie. confused, unrespo /Reproduction History /Reproductive History - optical fabrication technician: /Reproductive Hx- optical fabrication technician Hx Now No 04/22/24 14:48 Gestational Age (in weeks): EDC: Hx Hx Para Hx Section SAB No 04/22/24 14:48 Active Medications Active Medications: Current Medications Generic Name Dose Route Start Last Admin Trade Name Freq PRN Reason Stop Dose Admin Cefazolin Sodium 2 gm/ N/A 20 mls @ 400 mls/hr 05/23/24 07:30 IV 05/23/24 07:32 PREOP ONE Sodium Chloride 1,000 mls @ 15 mls/hr 05/23/24 06:15 05/23/24 06:57 IV 05/28/24 19:34 15 mls/hr .Q48H JONELLE Administration Protocol PFSH Medical History Easy bruising Blackout Asthma Interstitial cystitis Migraine headache History of hiatal hernia Shortness of breath on exertion History of echocardiogram GERD (gastroesophageal reflux disease) Disease of intestine, unspecified Colonic thickening Abnormal finding on MRI of brain Depression Anxiety Low iron Non-smoker Family history of colon cancer in father Thrombosed hemorrhoids Anemia PTSD (post-traumatic stress disorder) MTHFR mutation Home Medications ?Medication ?Instructions ?Recorded ?Last Taken ?Type pantoprazole 40 mg tablet,delayed 40 mg PO QDAY #60 ta bs 02/27/24 05/23/24 04:00 Rx release BEET ROOT 1 cap PO DAILY 04/22/2404/20 History CLORAPHIL 1 cap PO DAILY 04/22/2404/20 History FEVER FEW 1 cap PO DAILY 04/22/2404/20 History GOTUKOLA 1 cap PO DAILY 04/22/2404/20 History Lactobacillus acidophilus 250 500 mmu cells PO DAILY 0 04/22/24 05/16/24 History million cell capsule (Probiotic Acidophilus) MARSHMELLOW ROOT 1 cap PO DAILY 04/22/2404/20 History boron 6 mg tablet 6 mg PO DAILY 04/22/2405/16 History bupropion HCl 150 mg 24 hr tablet, 150 mg PO DAILY 07/11 Unknown History extended release ferrous sulfate 325 mg (65 mg 325 mg PO DAILY 04/22/24 05/16/24 History iron) tablet magnesium 250 mg tablet 250 mg PO DAILY 04/22/24 History zinc gluconate 50 mg tablet 50 mg PO DAILY 04/22/24 History adrenal complex PO 04/23/24 05/16/24 History berberine chloride 500 mg capsule 1,500 mg PO 04/23/24 05/16/24 History black currant seed oil .Route 04/23/24 05/16/24 His tory calcium acetate PO 04/23/24 05/16/24 History levomefolate 15 mg-algal oil 1 cap PO QDAY 04/23/24 History 90.314 mg capsule (L-Methylfolate Forte) pyridoxine (vitamin B6) PO 04/23/24 Unknown History sunflower lecithin PO 04/23/24 05/16/24 History Allergy/AdvReac Type Severity Reaction Status Date / Time adhesive Allergy Severe Hives Verified 05/23/24 06:44 latex Allergy Severe Hives Verified 05/23/24 06:44 soy Allergy Severe Anaphylaxis Verified 05/23/24 06:44 phenazopyridine (From Allergy Mild hives Verified 05/23/24 06:44 Pyridium) silver sulfadiazine (From Allergy Mild Hives Verified 05/23/24 06:44 Silvadene) Sulfa (Sulfonamide Allergy Mild Hives Verified 05/23/24 06:44 Antibiotics) azithromycin Allergy Hives Verified 05/23/24 06:44 nitrofurantoin Allergy Hives Verified 05/23/24 06:44 tetracycline Allergy Hives Verified 05/23/24 06:44 Family History Mother Aortic valve, bicuspid PTSD (post-traumatic stress disorder) Anemia Depression Ovarian cyst Father Crohn's disease Schizophrenia Aunt Schizophrenia Grandfather Cancer melanoma CVA (cerebral vascular accident) Surgical History History of esophagogastroduodenoscopy (EGD) History of H/O cystoscopy Hx of colonoscopy S/P wrist surgery Social History household members: children housing: house current occupational status: unemployed Smoking Status: Never smoker Electronic Cigarette Use: not used alcohol intake: never substance use type: does not use what type of physical activity do you participate in: none seatbelt use: always do you feel safe at home: Yes Review of Systems (Anesthesia) ROS Narrative System reviewed and no additional complaints, except as documented.
[2024-05-23] MEDS: Cefazolin 2 GM in Syringe IV (07:50)
[2024-05-23] MEDS: Bupivacaine Mpf 0.5% 30 ML VIAL (11:02)
--- NOTE | 2024-05-23 11:19 | PCM.OPRPT ---
Operative Report (Standard) Operative Information Date of Procedure: 05/23/24 Pre-Operative Diagnosis: 1. Symptomatic hiatal hernia with gastroesophageal reflux disease 2. Blackburn's esophagus Post-Operative Diagnosis: Same Surgery/Procedure Performed: Laparoscopic hiatal hernia repair with toupee fundoplication cracker dough mixer: Yes Salon Designer: Phil Hanks Tasks completed by assistant financial accountant: Opening, Trocar and Retracting Type of Anesthesia: General/Supplemental RN Documented Start/Stop Times: Operation Date: 05/23/24 07:30 Case Time Into Pre-Op 05/23/24 06:14 Out of Pre-Op 05/23/24 07:29 Anesthesia Start 05/23/24 07:30 Into Room 05/23/24 07:30 Procedure Start 05/23/24 08:20 Procedure End 05/23/24 11:17 Anesthesia End 05/23/24 11:25 Out of Room 05/23/24 11:25 Into Recovery 05/23/24 11:27 Out of Recovery 05/23/24 13:38 Procedure Start Time: 08:20 Procedure Stop Time: 11:17 Select all DRAINS/GRAFTS/IMPLANTS that apply: None Estimated Blood Loss: 15 Specimen collected: No Description of surgery: After appropriate identification in the holding, patient was brought to the operating room. There she was positioned supine on the operating room table. She underwent induction with general endotracheal anesthetic. She was positioned in a lithotomy position using yellowfin leg holders and a positioning foam pad. Care was taken to avoid pressure points. A Duque catheter was then placed with sterile technique. Patient's abdomen was prepped and draped in usual sterile fashion and a formal timeout was conducted to confirm the patient and procedure. Procedure was begun with a Veress entry at Titus's point followed by an optical trocar insertion once our set pressure of 15 mmHg was reached. Laparoscopic visualization revealed no inadvertent injury from this entry. Three other trocars were placed in the left supraumbilical paramedian position, the right upper quadrant, and the left upper quadrant laterally all under laparoscopic visualization. Lastly a Sena liver retractor was placed in the epigastrium also under laparoscopic visualization. This retractor was manipulated to elevate the left lobe of the liver and provide visualization to the diaphragmatic hiatus. Dissection of the hernia sac was begun on the side of the right ashu using a laparoscopic Enseal device and carried clockwise around the hiatus. We encountered some scar tissue along the phrenoesophageal ligament left ashu and had not yet identified the anterior vagus nerve so we elected to perform a bottom-up approach on the left by incising the gastrosplenic ligament and carefully dividing the short gastric vessels all the way up to the left ashu. Great care was taken to avoid undue traction on the splenic capsule. Both crura were clearly established and we then performed some limited mediastinal dissection to provide greater esophageal excursion while taking care to identify the anterior and posterior vagi as well as the parietal pleura. Once we had circumferential dissection, a retroesophageal window was made with blunt dissection and 1/2 inch [place] drain was placed about this opening to provide further cephalad traction on the stomach. With this traction we identified a few remaining hernia sac adhesions which were taken down with the use of the LigaSure. Next I performed cruralplasty with interrupted 0 Ethibond suture that was placed approximately at 1 cm intervals for a total of 3 stitches. With this approximation, there was still an approximately 1 cm gap between the posterior crural closure and the posterior esophagus. After this approximation, a partial, posterior (toupet type) fundal wrap was performed. To ensure the wrap was not overly tight, anesthesia was asked to pass a 56 [place] bougie through the esophagus into the stomach under direct laparoscopic visualization . The fundus of the stomach was grasped and a shoeshine maneuver was performed. Then the fundus was secured to the right ashu using a 2-0 Ethibond suture. The fundal wrap was completed in an interrupted fashion by first tacking the fundus of the stomach to the right anterior aspect of the esophagus using 2 Ethibond suture for a total of 3 sutures. This was followed by tacking the left side of the fundus to the left anterior esophagus, again with 3 different 2-0 Ethibond sutures. Great care was taken to avoid any injury to the left?positioned anterior vagus nerve. Lastly, a endoscopic exam was performed of this wrap and we confirmed that the wrap allowed easy passage of the endoscope. The stomach was evacuated of air and the scope was withdrawn. Returning to the abdomen, a Sena retractor was removed from position under laparoscopic visualization and pneumoperitoneum was evacuated. The 10 mm port was closed under laparoscopic direction using a Bertin Florez suture passer and #1 PDS in a [id number] technique. A total of 30 mL of half percent bupivacaine were infiltrated locally about these port sites both prior to insertion and at this point in closure. 4-0 Monocryl was used to close these incisions at the skin in a subcuticular fashion. Steri-Strips and OpSite dressings were applied and the case was formally concluded. The patient's nasogastric tube and Duque catheter were removed and the patient was allowed to emerge from anesthesia. They were then delivered to PACU for ongoing recovery. Surgical Findings: ? Small, sliding hiatal hernia ? Grossly?intact anterior and posterior vagii ? Postoperative endoscopic picture of a wrap about the endoscope allowing free passage of the endoscope ? No evidence of abdominal wall hernia ? Unusual appearance of falciform ligament with isolated attachment to the abdominal wall more inferior than usual location Complications Complications: No
--- NOTE | 2024-05-23 11:31 | PCM.POST.ANE ---
Anesthesia: Postop Eval I Current Vital Signs Temperature: 97.9 F Pulse Rate: 99 Blood Pressure: 113/70 Respiratory Rate: 16 Pulse Ox: 96 Oxygen Delivery Method: Room Air Assessment Airway patent: Yes Spontaneous unlabored respirations: Yes Mental status: Asleep nausea: No Vomiting: No Anesthesia Complication: No Fluid Hydration Crystalloid volume administer (ml): 1,900 Total IV fluid infused: 1,900 Progress Note Anesthesia document: Postop Eval 1 completed: Yes
--- NOTE | 2024-05-23 11:54 | POSTOPAN2_ITS ---
Anesthesia Postop Eval I Sum Postop Eval Completion status Anesthesia document: Postop Eval 1 completed: Yes Anesthesia Postop Eval I Summary Anesthesia Postop Eval I Summary: Anesthesia Postop Eval I: Assessment Summary Airway patent Yes 05/23/24 11:32 [email or web address] [email or web address] Spontaneous unlabored Yes 05/23/24 11:32 SOIL [email or web address] respirations Mental status Asleep 05/23/24 11:32 [email or web address] nausea No 05/23/24 11:32 SOIL [email or web address] Vomiting No 05/23/24 11:32 SOIL [email or web address] Anesthesia Postop Eval I: Fluid Summary Crystalloid volume administer 1,900 05/23/24 11:32 SOIL [email or web address] (ml) Colloids volume administered ( ml) Blood Product volume administered (ml) Total IV fluid infused 1,900 05/23/24 11:32 SOIL [email or web address] Anesthesia Postop Eval I: Summary Notes Anesthesia Complication No 05/23/24 11:32 SOIL [email or web address] Anesthesia Complication Comment: Post-operative progress note Anesthesia: Postop Eval II Evaluation Mental status: Awake Pain Level: 0 nausea: No Vomiting: No
--- NOTE | 2024-05-23 11:54 | PCM.POSTANE2 ---
Anesthesia Postop Eval I Sum Postop Eval Completion status Anesthesia document: Postop Eval 1 completed: Yes Anesthesia Postop Eval I Summary Anesthesia Postop Eval I Summary: Anesthesia Postop Eval I: Assessment Summary Airway patent Yes 05/23/24 11:32 [email or web address] Spontaneous unlabored Yes 05/23/24 11:32 [email or web address] respirations Mental status Asleep 05/23/24 11:32 [email or web address] nausea No 05/23/24 11:32 [email or web address] Vomiting No 05/23/24 11:32 [email or web address] Anesthesia Postop Eval I: Fluid Summary Crystalloid volume administer 1,900 05/23/24 11:32 [email or web address] (ml) Colloids volume administered ( ml) Blood Product volume administered (ml) Total IV fluid infused 1,900 05/23/24 11:32 [email or web address] Anesthesia Postop Eval I: Summary Notes Anesthesia Complication No 05/23/24 11:32 [email or web address] Anesthesia Complication Comment: Post-operative progress note Anesthesia: Postop Eval II Evaluation Mental status: Awake Pain Level: 0 nausea: No Vomiting: No
[2024-05-23] MEDS: Ketorolac 15 MG/ML Vial IV ×3 (13:14→23:32)
[2024-05-23] MEDS: Ondansetron 4 MG/2 ML Vial IV ×2 (14:14→20:26)
[2024-05-23] MEDS: oxyCODONE Soln 5 MG/0.25 ML PO.SYRINGE PO (16:45)
[2024-05-23] MEDS: HYDROmorphone 0.5 MG/0.5 ML SYRINGE IV (20:26)
[2024-05-23] MEDS: 0.9% Saline Lock 10 ML Syringe IV ×2 (20:26→23:32)
--- NOTE | 2024-05-23 23:25 | NURSING ---
Pt got up to ambulate to the bathroom unassisted, reports feelings of light-headedness, nausea and vomiting while up. Pt states symptoms resolved after returning to bed. Pt encouraged to always call for assistance with ambulation, pt agrees. VS obtained and stable. Call light within reach.
[2024-05-23] MEDS: 0.9% Normal Saline (1000mL) 1,000 ML 75 ML IV (23:32)
[2024-05-24 03:30] VITALS: BP 111/77; BP 117/83; BP 119/71; PULSE 102; PULSE 90; RESP 16; TEMP 37; O2SAT 97
[2024-05-24] MEDS: HYDROmorphone 0.5 MG/0.5 ML SYRINGE IV (04:21)
[2024-05-24 06:19] VITALS: BP 108/72; PULSE 102; RESP 16; TEMP 36.8; O2SAT 98
[2024-05-24] MEDS: Ketorolac 15 MG/ML Vial IV ×2 (06:21→11:31)
[2024-05-24] MEDS: Polyethylene Glycol 3350 17 GM PACKET PO (09:31)
[2024-05-24 09:33] VITALS: BP 109/75; PULSE 91; RESP 18; TEMP 36.7; O2SAT 97
[2024-05-24] MEDS: 0.9% Saline Lock 10 ML Syringe IV (11:31)
--- NOTE | 2024-05-24 15:06 | PCM.DC ---
Discharge Instructions Diet Discharge Diet: - (Full liquid diet x 1 week followed by soft diet (as prescribed)) DC O2, CPAP, BIPAP needs Home O2 Discharge instructions: No Dressing / Incision May shower in (days): 2 May resume sexual activity in: 4-6 weeks Ice area for (Minutes): 20 Lifting Restrictions: No lifting greater than 10 pounds x 5 weeks postop Dressing / Incision Call your doctor if your incision/area has: Sudden Increased Bleeding, Increased Pain/ Swelling, Increased Redness, Foul Smelling Discharge and Swelling at the incision site Call your doctor if you observe: Fever of 101 or Higher, Inability to have a bowel movement, Uncontrolled pain and - (nausea or vomiting) Remove Dressing in: 1 day Cleanse incision/area with: Soap & Water Follow Up Care Please Follow Up With: Hermelindo Presley MD When: 10 to 14 days postop Test Results: Test results from this visit will be discussed in further detail at your follow-up appointment, if applicable. Discharge Plan Admission Admit Date/Time: 05/23/24 12:17 Primary Reason for Your Visit: antireflux surgery Attending Provider: Hermelindo Presley Primary Care Provider: Maritza Agee Consulting Providers: Pipe Fuentes Discharge Orders/Prescriptions Prescriptions: New oxycodone 20 mg/mL Concentrate 5 mg PO Q6H PRN (Reason: PAIN 6-10) 3 Days Qty: 30 0RF Continued adrenal complex PO calcium acetate PO levomefolate-algal oil [L-Methylfolate Forte] 15-90.314 mg capsule 1 cap PO QDAY pyridoxine (vitamin B6) PO bupropion HCl 150 mg tablet extended release 24 hr 150 mg PO DAILY ferrous sulfate 325 mg (65 mg iron) tablet 325 mg PO DAILY boron 6 mg tablet 6 mg PO DAILY zinc gluconate 50 mg tablet 50 mg PO DAILY magnesium 250 mg tablet 250 mg PO DAILY Probiotic Acidophilus 250 million cell capsule 500 mmu cells PO DAILY CLORAPHIL 1 cap PO DAILY MARSHMELLOW ROOT 1 cap PO DAILY FEVER FEW 1 cap PO DAILY Held berberine chloride 500 mg capsule 1,500 mg PO Hold Instructions: Resume on 05/30/24. black currant seed oil 320 mg gel .Route Hold Instructions: Resume on 05/26/24. Rx Instructions: one soft gel orally daily sunflower lecithin 1,200 mg PO Hold Instructions: Resume on 05/30/24. BEET ROOT 1 cap PO DAILY Hold Instructions: Resume on 05/26/24. GOTUKOLA 1 cap PO DAILY Hold Instructions: Resume on 05/30/24. Monitor for any nausea or stomach pains pantoprazole 40 mg tablet,delayed release (DR/EC) 40 mg PO QDAY Qty: 60 2RF Hold Instructions: Resume on 06/07/24. Referrals / Follow Up: Maritza Agee MD [Primary Care Provider] - Disposition Disposition (needs filled in before D/C Order can be placed): Home, Self Care
--- NOTE | 2024-05-24 15:21 | PCM.DC.SUM ---
Providers Date of Admission: 05/23/24 Primary Care Physician: Dr. Maritza Agee MD Reason For Visit: Laparoscopic, Toupet Fundoplication & hiatal herni Medications at Discharge Home Medications pantoprazole 40 mg tablet,delayed release 40 mg PO QDAY #60 tabs 02/27/24 Held on 05/24/24. Instructions: Resume on 06/07/24. BEET ROOT 1 cap PO DAILY 04/22/24 Held on 05/24/24. Instructions: Resume on 05/26/24. CLORAPHIL 1 cap PO DAILY 04/22/24 FEVER FEW 1 cap PO DAILY 04/22/24 GOTUKOLA 1 cap PO DAILY 04/22/24 Held on 05/24/24. Instructions: Resume on 05/30/24. Monitor for any nausea or stomach pains Lactobacillus acidophilus 250 million cell capsule (Probiotic Acidophilus) 500 mmu cells PO DAILY 04/22/24 MARSHMELLOW ROOT 1 cap PO DAILY 04/22/24 boron 6 mg tablet 6 mg PO DAILY 04/22/24 bupropion HCl 150 mg 24 hr tablet, extended release 150 mg PO DAILY 04/22/24 ferrous sulfate 325 mg (65 mg iron) tablet 325 mg PO DAILY 04/22/24 magnesium 250 mg tablet 250 mg PO DAILY 04/22/24 zinc gluconate 50 mg tablet 50 mg PO DAILY 04/22/24 adrenal complex PO 04/23/24 berberine chloride 500 mg capsule 1,500 mg PO 04/23/24 Held on 05/24/24. Instructions: Resume on 05/30/24. black currant seed oil .Route 04/23/24 Held on 05/24/24. Instructions: Resume on 05/26/24. calcium acetate PO 04/23/24 levomefolate 15 mg-algal oil 90.314 mg capsule (L-Methylfolate Forte) 1 cap PO QDAY 04/23/24 pyridoxine (vitamin B6) PO 04/23/24 sunflower lecithin PO 04/23/24 Held on 05/24/24. Instructions: Resume on 05/30/24. oxycodone 20 mg/mL oral concentrate 5 mg (0.25 mL) PO Q6H PRN PAIN 6-10 3 days #30 mL 05/24/24 Hospital Course Operations - (Laparoscopic hiatal hernia repair with toupee fundoplication) Procedures None Summary of Care Provided Hospital Course: Patient is a 33-year-old female who underwent laparoscopic hiatal hernia repair with toupee fundoplication on 05/23/2024. Procedure was completed in uncomplicated fashion and patient was admitted postoperatively for routine observation. She was evaluated immediately postop and doing well apart from some anticipated breakthrough pain which was treated. However, on reevaluation morning postoperative day 1 she reported that she had 2 episodes of nausea and vomiting that were not reported to me. Given these reports from patient I suggested we extend her observation for an additional few hours to make sure she did not have recurrence of this nausea and vomiting and demonstrated tolerance of a diet advancement to a full liquid diet. Patient went on to specify that the periods of nausea and vomiting followed movement and her reports were suggestive of postanesthetic side effects. She had no recurrence of the symptoms and tolerated diet advancement without difficulty. Her exam remained benign and appropriate. Thus she was granted discharge to home after reviewing expectation for diet advancement as an outpatient. Specifically, I discussed continuing a full liquid diet for 1 week followed by transition to a soft diet. I stressed the need to avoid, and is much as it depends on the patient, any additional nausea, vomiting, constipation, coughing, or other straining. Patient and her confirmed understanding and she was discharged home. Physical Exam Const alert and oriented x3 General Appearance: cooperative Resp normal respiratory effort GI GI Narrative: Operative dressings intact with minimal strikethrough, nondistended, soft, appropriately tender to palpation Weight / BMI Weight Weight: 194 lb 0.108 oz Body Mass Index (BMI) 29.5 ABG / Lab / Microbiology Data 04/23/24 09:32 04/23/24 09:32 D/C Instructions Discharge Diet: - (Full liquid diet x 1 week followed by soft diet (as prescribed)) May shower in (days): 2 May resume sexual activity in: 4-6 weeks Ice area for (Minutes): 20 Call your doctor if your incision/area has: Sudden Increased Bleeding, Increased Pain/ Swelling, Increased Redness, Foul Smelling Discharge and Swelling at the incision site Call your doctor if you observe: Fever of 101 or Higher, Inability to have a bowel movement, Uncontrolled pain and - (nausea or vomiting) Cleanse incision/area with: Soap & Water DC O2, CPAP, BIPAP Needs Home O2 Discharge instructions: No Please Follow Up With: Hermelindo Presley MD When: 10 to 14 days postop Meaningful Use Info Meaningful Use Meaningful Use Diagnoses (Choose all that apply): None applicable Ischemic Stroke Statin Dosing Therapy Reference: STATIN DOSE THERAPY REFERENCE: * Patients > 75 years receive moderate or high dose statin therapy. * Patients 75 years or YOUNGER should receive HIGH intensity statin dose unless contraindicated. You will be required to document reason for non-treatment if statin daily dose does not meet guidelines. HIGH DOSE STATIN THERAPY DAILY Atorvastatin > than or = to 40 mg Rosuvastatin > than or = to 20 mg Amlodipine + Atorvastatin > than or = to 2.5/40 mg Ezetimibe + Simvastatin 10/80 mg Simvastatin 80mg Discharge Plan Admission Admit Date/Time: 05/23/24 12:17 Primary Reason for Your Visit: antireflux surgery Attending Provider: Hermelindo Presley Primary Care Provider: Maritza Agee Consulting Providers: Pipe Fuentes Discharge Orders/Prescriptions Prescriptions: New oxycodone 20 mg/mL Concentrate 5 mg PO Q6H PRN (Reason: PAIN 6-10) 3 Days Qty: 30 0RF Continued adrenal complex PO calcium acetate PO levomefolate-algal oil [L-Methylfolate Forte] 15-90.314 mg capsule 1 cap PO QDAY pyridoxine (vitamin B6) PO bupropion HCl 150 mg tablet extended release 24 hr 150 mg PO DAILY ferrous sulfate 325 mg (65 mg iron) tablet 325 mg PO DAILY boron 6 mg tablet 6 mg PO DAILY zinc gluconate 50 mg tablet 50 mg PO DAILY magnesium 250 mg tablet 250 mg PO DAILY Probiotic Acidophilus 250 million cell capsule 500 mmu cells PO DAILY CLORAPHIL 1 cap PO DAILY MARSHMELLOW ROOT 1 cap PO DAILY FEVER FEW 1 cap PO DAILY Held berberine chloride 500 mg capsule 1,500 mg PO Hold Instructions: Resume on 05/30/24. black currant seed oil 320 mg gel .Route Hold Instructions: Resume on 05/26/24. Rx Instructions: one soft gel orally daily sunflower lecithin 1,200 mg PO Hold Instructions: Resume on 05/30/24. BEET ROOT 1 cap PO DAILY Hold Instructions: Resume on 05/26/24. GOTUKOLA 1 cap PO DAILY Hold Instructions: Resume on 05/30/24. Monitor for any nausea or stomach pains pantoprazole 40 mg tablet,delayed release (DR/EC) 40 mg PO QDAY Qty: 60 2RF Hold Instructions: Resume on 06/07/24. Referrals / Follow Up: Maritza Agee MD [Primary Care Provider] - Disposition Disposition (needs filled in before D/C Order can be placed): Home, Self Care Charges/Coding Visit Charges Inpatient E&M: 89120 Disch Hosp
[2024-05-24 16:36] VITALS: BP 116/78; PULSE 87; RESP 18; TEMP 37; O2SAT 98
[2024-05-24] MEDS: oxyCODONE Soln 5 MG/0.25 ML PO.SYRINGE PO (17:21)
== END 2024-05-24 19:14 | disposition home or self-care (01) ==
LOC: SDC 12:29 → MS3 05-24 15:21
PROVIDERS: Anesthesiology; Admitting Provider Surgery; PCP Internal Medicine; Referring Provider Surgery; Visit Provider Surgery
PROC: (CPT 43325; principal; 2024-05-23 07:10)
DX: K44.9 Diaphragmatic hernia without obstruction or gangrene (principal); K22.70 Barrett's esophagus without dysplasia; K21.9 Gastro-esophageal reflux disease without esophagitis; J45.909 Unspecified asthma, uncomplicated; R06.02 Shortness of breath; Z79.899 Other long term (current) drug therapy
CPT/HCPCS: 43281; 00790; 36415; 80048; 80076; 81025; 85027; 85610; 85730; 93005; 96361; 96374; 96375; 96376; 99221; A4216; G0378; J2405

== ENCOUNTER → 2024-06-24 | Outpatient (CLI) | payer MEDICAID, SELFPAY ==
--- NOTE | 2024-06-24 08:57 | RAD_ITS ---
EXAM: DOUBLE-CONTRAST ESOPHAGRAM CLINICAL HISTORY: Patient had recent fundoplication surgery, May of 2024. Bouts of dysphagia and reflux. Patient on a pure a diet. COMPARISON: No relevant priors. TECHNIQUE: Following the ingestion of effervescent granules and high density barium, swallowing mechanism was evaluated under fluoroscopy in the oblique, AP, lateral, and RPO positions. Barium tablet was also utilized. Imaging sequences were documented as usual. FLUOROSCOPIC TIME: 135 sec Dose: 12.14 mGy FLUOROGRAPHIC IMAGES: 11 imaging sequences. FINDINGS: No abnormalities were seen in the hypopharynx. Esophageal motility was normal. Liquid barium passed freely through the esophagogastric junction. Once the barium tablet reached the esophagogastric junction, a significant delay was documented in passage of the tablet through the esophagogastric junction. No constricting or obstructing lesions were demonstrated. No intraluminal filling defects. No ulcerations. No gastroesophageal reflux was identified. No hiatal hernia was demonstrated. RAD/Esophagus Dual Contrast IMPRESSION: Delayed passage of the barium tablet through the esophagogastric junction. No evidence of recurrent hiatal hernia. No gastroesophageal reflux was demonstrated on this study. Reading Location: [place] [id number]
== END | disposition home or self-care (01) ==
LOC: RAD 08:55
PROVIDERS: PCP Internal Medicine; Referring Provider Surgery; Visit Provider Surgery
DX: K21.9 Gastro-esophageal reflux disease without esophagitis (principal)
CPT/HCPCS: 74221

== ENCOUNTER → 2024-07-07 | Outpatient (CLI) | payer MEDICAID, SELFPAY ==
--- NOTE | 2024-07-07 15:07 | ECHOD_ITS ---
Reason For Study Reason For Study: Chest Pain Procedure This was a 2D Doppler, Color Flow transthoracic echocardiogram. Exam performed in department. Left Ventricle Normal LV size. Left ventricular systolic function is normal. The left ventricular ejection fraction is 60 %. No regional wall motion abnormalities noted. Right Ventricle Normal RV size. Normal systolic function. Atria Normal left atrium. Normal right atrium. Mitral Valve Normal mitral valve. Tricuspid Valve Normal tricuspid valve. Aortic Valve Trisinus/trileaflet aortic valve. Pulmonic Valve Normal pulmonic valve. Great Vessels Normal sized aortic root. The pulmonary artery is normal size. Inferior vena cava collapse with respiration. Pericardium/Pleural No pericardial effusion. MMode/2D Measurements & Calculations LVIDd: 4.9 cm IVSd: 0.72 cm Ao root diam: 2.5 cm LVIDs: 3.2 cm LVPWd: 0.74 cm RVDd: 3.4 cm FS: 34.4 % LAV(MOD-bp): 38.2 ml LVAd ap4: 28.9 cm2 SV(MOD-sp4): 52.7 ml LAV(MOD-bp) Indexed: 19.8 ml/m2 LVLd ap4: 7.3 cm SI(MOD-sp4): 27.3 ml/m2 LAV(MOD-sp2): 41.1 ml EDV(MOD-sp4): 93.6 ml LAV(MOD-sp4): 35.2 ml EDV(sp4-el): 97.2 ml LVAs ap4: 17.2 cm2 LVLs ap4: 5.9 cm ESV(MOD-sp4): 41.0 ml ESV(sp4-el): 42.2 ml EF(MOD-sp4): 56.3 % EF(sp4-el): 56.6 % SV(sp4-el): 55.1 ml LA A4 area: 13.4 cm2 LA dimension(2D): 3.3 cm RA A4 area: 13.4 cm2 TAPSE: 2.3 cm Time Measurements MV dec time: 0.21 sec Doppler Measurements & Calculations MV E max william: 77.6 cm/sec Lat Peak E' William: 17.0 cm/sec Med Peak E' William: 9.8 cm/sec MV A max william: 55.4 cm/sec E/E' lat: 4.6 E/E' med: 8.0 MV E/A: 1.4 Ao V2 max: 137.4 cm/sec LV V1 max: 95.1 cm/sec MV dec slope: 372.1 cm/sec2 Ao max P.6 mmHg LV V1 max P.6 mmHg Ao V2 mean: 109.6 cm/sec Ao mean P.0 mmHg Ao V2 VTI: 31.0 cm PA V2 max: 96.5 cm/sec PI end-d william: 74.8 cm/sec TR max william: 237.2 cm/sec TR max P.5 mmHg ECHO/Echo Complete Interpretation Summary Normal LV size. Left ventricular systolic function is normal. The left ventricular ejection fraction is 60 %. Trisinus/trileaflet aortic valve. Ordering Physician: Aric Dixon Referring Physician: Maritza Agee Performed By: Bridgett Davis, RAJ, RVT
== END | disposition home or self-care (01) ==
LOC: CVS 15:06
PROVIDERS: PCP Internal Medicine; Referring Provider Physician Assistant; Visit Provider Physician Assistant
DX: R07.9 Chest pain, unspecified (principal)
CPT/HCPCS: 93306

== ENCOUNTER → 2024-08-04 | Outpatient (CLI) | payer MEDICAID, SELFPAY ==
--- NOTE | 2024-08-04 13:09 | CT_ITS ---
PROCEDURE: LIMITED CHEST CT CARDIAC ONLY REASON FOR EXAM: CHEST PAIN TECHNIQUE: Supine chest CT with IV contrast administration. Isovue 370. 60 mL. One or more dose reduction techniques were used (e.g., Automated exposure control, adjustment of the mA and/or kV according to patient size, use of iterative reconstruction technique). COMPARISON: None FINDINGS: Hardware: None Lymph nodes: No suspicious lymph nodes are seen. Heart and Vasculature: Normal heart size. No pericardial effusion. Coronary Artery Calcifications: Absent Lungs and Airways: The lungs are normally expanded and clear. No septal thickening nodules or abnormal pulmonary opacities. Pleura: Unremarkable Upper Abdomen: Diffuse fatty infiltration of the liver. Bones: Bone windows are unremarkable. CT/Limited Chest CT Cardiac Only IMPRESSION: Coronary artery calcification (CAC) is is absent Fatty infiltration of the liver. Reading Location: [place] [id number]
[2024-08-04 13:20] VITALS: BP 130/79; PULSE 84; RESP 18; O2SAT 100; BMI 25.9
[2024-08-04 13:44] VITALS: BP 117/70; PULSE 77
[2024-08-04] MEDS: Nitroglycerin SL (ED/IMG/CATH) 0.4 MG TABLET SL (13:44)
[2024-08-04 13:53] VITALS: BP 117/70; PULSE 99
[2024-08-04] MEDS: Metoprolol Tartrate 5 MG/5 ML Vial IV (13:53)
[2024-08-04] MEDS: 0.9% Saline Lock 10 ML Syringe IV (14:08)
--- NOTE | 2024-08-04 18:06 | CCTA.WCONT ---
CCTA w/Cont Coronary Arteries Date of Study:: 08/04/24 Chest pain Coronary Calcium Scoring: High-resolution Computed Tomographic imaging of the chest was performed on [08/04/24 ], with particular attention paid to the coronary arteries. Intravenous contrast agent was administered per protocol and images reconstructed and displayed. LEFT MAIN CORONARY ARTERY: This is from the left main coronary cusp and bifurcates to left anterior descending artery and left circumflex artery. No stenosis or calcification is noted [] LEFT ANTERIOR DESCENDING CORONARY ARTERY: Arises from the left main coronary artery and courses towards the apex of the ventricle. Gives of a prominent first diagonal branch with no significant atherosclerotic plaquing. The left anterior descending artery itself has no atherosclerotic plaquing present. [] LEFT CIRCUMFLEX CORONARY ARTERY: Nondominant vessel with a first obtuse marginal branch and then continues as an AV groove branch with no significant atherosclerotic plaquing noted [] RIGHT CORONARY ARTERY: Dominant right coronary artery arising from the right coronary cusp with no atherosclerotic plaquing or coronary calcification present. [] THORACIC AORTA: Normal size Conclusion: CT angiogram demonstrating no atherosclerotic plaquing and normal coronary arteries. Calcium Scoring Interpretation: Different methods to categorize the overall amount of coronary plaque. Overall amount CAC SIS Visual of coronary plaque P1 Mild -100 <2 1-2 vessels with mild amount of plaque P2 Moderate 101-300 3-4 1-2 vessels with moderate amount, 3 vessels with mild amount of plaque P3 Severe 301-999 5-7 3 vessels with moderate amount, 1 vessel with severe amount of plaque P4 Extensive >1000 >8 2-3 vessels with severe amount of plaque Conclusion: Normal coronary arteries.
== END | disposition home or self-care (01) ==
LOC: CT 13:06
PROVIDERS: PCP Internal Medicine; Referring Provider Physician Assistant; Visit Provider Physician Assistant
DX: R07.9 Chest pain, unspecified (principal)
CPT/HCPCS: 75574; 76380; 96374; Q9967; A4216

== ENCOUNTER → 2024-12-22 | Outpatient (CLI) | payer MEDICAID, SELFPAY ==
[2024-12-22 12:29] LABS: Hematocrit 40.7 % (37-47); Hemoglobin 12.8 g/dL (12.0-15.0); Immature Granulocytes Count 0.020 X10^3/uL (0.0-0.0); Mean Corp Hgb Conc 31.4 g/dL (32-36); Mean Corpuscular Volume 80.3 fL (81-99); Mean Platelet Vol. 9.5 fl (6.2-12.0); NRBC Flagged by Analyzer 0 % (0-5); Platelet Count 351 K/mm3 (150-450); RBC Distribution Width CV 13.6 % (11.6-14.6); RBC Distribution Width SD 39.3 fl (35.1-43.9); Red Blood Count 5.07 M/mm3 (4.2-5.4); White Blood Count 9.3 K/mm3 (4.4-11.0)
[2024-12-25 16:09] LABS: HPV APTIMA, High Risk Negative (Negative)
== END | disposition home or self-care (01) ==
PROVIDERS: PCP Internal Medicine; Referring Provider Obstetrics & Gynecology; Visit Provider Obstetrics & Gynecology
DX: Z12.4 Encounter for screening for malignant neoplasm of cervix (principal); N93.9 Abnormal uterine and vaginal bleeding, unspecified; Z13.29 Encounter for screening for other suspected endocrine disorder
CPT/HCPCS: 36415; 84443; 85025; 87070; 87205; 87624; 88175; G0145

== ENCOUNTER → 2025-01-06 | Outpatient (CLI) | payer MEDICAID, SELFPAY ==
--- NOTE | 2025-01-06 13:29 | US_ITS ---
PROCEDURE: PELVIC W/ TRANSVAGINAL REASON FOR EXAM: DYSPAREUNIA TECHNIQUE: Procedure Code: [id number] Modality: US Procedure: PELVIC W/ TRANSVAGINAL COMPARISON: None FINDINGS: LMP: December 29, 2024 Measurements: Uterus: 8.6 cm x 5.3 cm x 4.3 cm with a volume of 102.6 mL Endometrial Thickness: 5 mm. It is trilaminar in appearance. Right Ovary: 2.6 cm x 3.6 cm x 1.7 cm with a volume of 8.4 mL. Left Ovary: 2.3 cm x 1.9 cm x 1.4 cm with a volume of 3.2 mL. TRANSABDOMINAL: Uterus: Normal size, myometrial echotexture, and contour. Endometrium: Unremarkable. Right ovary: Normal size and echotexture. Left ovary: Normal size and echotexture. Other: No large pelvic mass identified. Transvaginal sonography was performed to better visualize the endometrium. TRANSVAGINAL: Uterus: Anteverted. Normal contour and myometrial echotexture. Endometrium: Normal echotexture. Right ovary: Normal size and echotexture. Left ovary: Normal size and echotexture. Other adnexal findings: None. Cul-de-sac: No free intraperitoneal fluid identified. Tenderness: No tenderness US/Pelvic w/ Transvaginal IMPRESSION: NORMAL TRANSABDOMINAL AND TRANSVAGINAL PELVIC ULTRASOUND. Reading Location: [place] [address]
== END | disposition home or self-care (01) ==
LOC: US 13:24
PROVIDERS: PCP Internal Medicine; Referring Provider Obstetrics & Gynecology; Visit Provider Obstetrics & Gynecology
DX: N93.9 Abnormal uterine and vaginal bleeding, unspecified (principal); N94.10 Unspecified dyspareunia
CPT/HCPCS: 76830; 76856

== ENCOUNTER 2025-01-09 14:50 | Emergency (ER) | payer MEDICAID, SELFPAY ==
[2025-01-09 14:52] VITALS: BP 155/96; PULSE 81; RESP 24; TEMP 36.4; O2SAT 100; BMI 25.6
--- NOTE | 2025-01-09 15:11 | EX.ED.DYSGE1 ---
HPI History of Present Illness Chief Complaint: Other, Pain/Inj Narrative Narrative: Patient is a 34-year-old female with a past medical history of asthma, migraine headache, GERD, thrombosed hemorrhoids, anemia, MTHFR mutation who presented to the emergency department with a chief complaint of of rectal pain. States that on December 30 she was seen by the surgery team in the office and a physician preschool assistant director open her thrombosed hemorrhoid up. She states that she had bleeding ever since then until recently she states that today she did not have bleeding. States that she has been still in extreme pain prior to her to come here for further evaluation management. States that she did call their office however they could not get her in until Sunday and she cannot take the pain any longer prompting her here. Patient denies any blood thinning medications. Denies any other medical problems [facility] Medical History Easy bruising Blackout Asthma Interstitial cystitis Migraine headache History of hiatal hernia Shortness of breath on exertion History of echocardiogram GERD (gastroesophageal reflux disease) Disease of intestine, unspecified Colonic thickening Abnormal finding on MRI of brain Depression Anxiety Low iron Non-smoker Family history of colon cancer in father Thrombosed hemorrhoids Anemia PTSD (post-traumatic stress disorder) MTHFR mutation Home Medications ?Medication ?Instructions ?Recorded ?Last Taken ?Type BEET ROOT 1 cap PO DAILY 04/22/24 05/16/24 History CLORAPHIL 1 cap PO DAILY 04/22/24 05/16/24 History FEVER FEW 1 cap PO DAILY 04/22/24 05/16/24 History GOTUKOLA 1 cap PO DAILY 04/22/24 05/16/24 History Lactobacillus acidophilus 250 500 mmu cells PO DAILY 04/22/24 05/16/24 History million cell capsule (Probiotic Acidophilus) MARSHMELLOW ROOT 1 cap PO DAILY 04/22/24 05/16/24 History boron 6 mg tablet 6 mg PO DAILY 04/22/24 05/16/24 History ferrous sulfate 325 mg (65 mg 325 mg PO DAILY 04/22/24 05/16/24 History iron) tablet magnesium 250 mg tablet 250 mg PO DAILY 04/22/24 05/16/24 History zinc gluconate 50 mg tablet 50 mg PO DAILY 04/22/24 05/16/24 History adrenal complex PO 04/23/24 05/16/24 History berberine chloride 500 mg capsule 1,500 mg PO 04/23/24 05/16/24 History black currant seed oil .Route 04/23/24 05/16/24 History calcium acetate PO 04/23/24 05/16/24 History levomefolate 15 mg-algal oil 1 cap PO QDAY 04/23/24 05/16/24 History 90.314 mg capsule (L-Methylfolate Forte) pyridoxine (vitamin B6) PO 04/23/24 Unknown History sunflower lecithin PO 04/23/24 05/16/24 History quercetin 500 mg capsule 1,000 mg PO DAILY 06/05/24 Unknown History ondansetron 4 mg disintegrating 4 mg PO Q6H PRN nausea and 01/09/25 Unknown Rx tablet vomiting #20 tabs oxycodone 5 mg capsule 5 mg PO Q6H PRN pain 3 days #12 01/09/25 Unknown Rx caps Allergy/AdvReac Type Severity Reaction Status Date / Time adhesive Allergy Severe Hives Verified 01/09/25 14:52 latex Allergy Severe Hives Verified 01/09/25 14:52 soy Allergy Severe Anaphylaxis Verified 01/09/25 14:52 apricot Allergy Intermediate Anaphylaxis Verified 01/09/25 14:52 phenazopyridine (From Allergy Mild hives Verified 01/09/25 14:52 Pyridium) silver sulfadiazine (From Allergy Mild Hives Verified 01/09/25 14:52 Silvadene) Sulfa (Sulfonamide Allergy Mild Hives Verified 01/09/25 14:52 Antibiotics) azithromycin Allergy Hives Verified 01/09/25 14:52 nitrofurantoin Allergy Hives Verified 01/09/25 14:52 tetracycline Allergy Hives Verified 01/09/25 14:52 Family History Mother Aortic valve, bicuspid PTSD (post-traumatic stress disorder) Anemia Depression Ovarian cyst Father Crohn's disease Schizophrenia Aunt Schizophrenia Grandfather Cancer melanoma CVA (cerebral vascular accident) Surgical History S/P laparoscopic fundoplication History of esophagogastroduodenoscopy (EGD) History of H/O cystoscopy Hx of colonoscopy S/P wrist surgery Social History household members: children housing: house current occupational status: unemployed Smoking Status: Never smoker Electronic Cigarette Use: not used alcohol intake: never substance use type: does not use what type of physical activity do you participate in: none seatbelt use: always do you feel safe at home: Yes ROS ROS ED ROS Narrative Constitutional: Denies any fevers, chills, headaches Abdomen: Denies abdominal pain nausea vomit diarrhea complains of rectal pain as noted above : Denies urinary symptoms Neurological: Denies numbness, weakness, tingling Musculoskeletal: Denies back pain Skin: Denies any rashes or lesions EXAM Physical Exam Narrative Exam Narrative: General: Patient was lying in bed rest comfortably did not appear to be in any acute distress Head: Atraumatic, normocephalic Eyes: PERRL bilaterally, EOMI bilaterally, no conjunctival injection noted Neck: Soft, supple, trachea midline Cardiovascular: Regular rate and rhythm Rectal: Patient has 2 external hemorrhoids noted the one that was opened by the surgery team has closed and is very red and swollen she has significant pain upon palpation of this area. She has a second thrombosed hemorrhoid noted at the 6 o'clock position posteriorly Extremities: +5/5 strength in the bilateral lower extremities Neurological: Patient follow commands and that she was at [facility] the year is 2024 Skin: Warm, dry, tact no rashes or lesions noted Const Vital Signs: 01/09/25 14:52 01/09/25 15:38 Temperature 97.6 F L Temperature Source Temporal Pulse Rate 81 Respiratory Rate 24 H Respiratory Effort Normal Non-Labored Respiratory Pattern Normal Blood Pressure 155/96 H Blood Pressure Mean 115 Pulse Ox 100 Oxygen Delivery Method Room Air MDM MDM MDM Narrative Medical decision making narrative: Patient is a 34-year-old female who presented to the emergency department the chief complaint of rectal pain and history of thrombosed hemorrhoids. On the differential diagnose includes but not limited to thrombosed hemorrhoid, perianal abscess, perirectal abscess although I have low suspicion for this. Patient did drive here in the emergency department and she does not have anyone to pick her up there for a ankle block will be performed followed by I&D of the thrombosed hemorrhoids. Timeout protocol was performed prior to initiating procedure. The area was prepped and draped in the usual, sterile manner. The site was anesthetized with 6 mL of 0.25 percent bupivacaine without epinephrine. A linear incision along the local skin lines were made and the clot was expressed from the thrombosed external hemorrhoid at the posterior 6 o'clock position. The other hemorrhoid was incised as well and dark blood was removed from this as well. . Bleeding was minimal. Packing none Follow-up: The patient tolerated procedure well without complications. Standard postprocedure care is explained and return precautions were given. She was advised to continue sitz bath's and use the topical lidocaine gel that she was prescribed and follow-up with the general surgery team in the outpatient setting. She is vies return with worsening symptoms or concerns. Should be given prescription for oxycodone and Zofran for severe pain she is vies rotate Tylenol and ibuprofen [id number] for mild to moderate pain. She is agreeable this plan all course concerns answered she was discharged home in stable condition. Discharge Plan Triage Chief Complaint: Other, Pain/Inj ED Provider: Alton Hammond Dx/Rx/DC Orders Clinical Impression: External hemorrhoid, thrombosed, Anal or rectal pain, History of MTHFR mutation Prescriptions: New ondansetron 4 mg tablet,disintegrating 4 mg PO Q6H PRN (Reason: nausea and vomiting) Qty: 20 0RF oxycodone 5 mg capsule 5 mg PO Q6H PRN (Reason: pain) 3 Days Qty: 12 0RF No Action berberine chloride 500 mg capsule 1,500 mg PO adrenal complex PO black currant seed oil 320 mg gel .Route Rx Instructions: one soft gel orally daily calcium acetate PO sunflower lecithin 1,200 mg PO levomefolate-algal oil [L-Methylfolate Forte] 15-90.314 mg capsule 1 cap PO QDAY pyridoxine (vitamin B6) PO quercetin 500 mg capsule 1,000 mg PO DAILY ferrous sulfate 325 mg (65 mg iron) tablet 325 mg PO DAILY boron 6 mg tablet 6 mg PO DAILY zinc gluconate 50 mg tablet 50 mg PO DAILY magnesium 250 mg tablet 250 mg PO DAILY Probiotic Acidophilus 250 million cell capsule 500 mmu cells PO DAILY CLORAPHIL 1 cap PO DAILY MARSHMELLOW ROOT 1 cap PO DAILY FEVER FEW 1 cap PO DAILY BEET ROOT 1 cap PO DAILY GOTUKOLA 1 cap PO DAILY Primary Care Provider: Maritza Agee Referrals: Maritza Agee MD [Primary Care Provider, Internal Medicine] Activity Restrictions/Additional Instructions: After bowel movements continue sitz bath's. I was able to open the 2 hemorrhoids up and removed clot burden from them. Rotate Tylenol and ibuprofen [id number] when you do this you can take something every 3 hours for pain with max dose of Tylenol in 24 hours 4000 mg max dose ibuprofen in 24 hours 3200 mg. Use the narcotic for severe pain do not operate anything under the influence this medication. Take the Zofran with this as it will upset your stomach. Follow-up the surgery team in the outpatient setting and return with worsening symptoms or other concerns Print Language: Guatemalan Disposition Disposition: Home, Self Care
--- OUTSIDE RECORDS SUMMARY | 2025-01-09 16:29 | XMS RPT_ITS | CCD ---
Author Organization [facility] Inform ion Partnership [facility] Care Team Providers Care Beer Cooler Name Role Phone MORRO BECK Unavailable Unavailable *SELF, REFERRED Unavailable Unavailable Chris Shannon Unavailable Unavailable Chris Shannon Primary Care Provider Chris Shannon Primary Care Provider Mirtha ADLER, Chris Primary Care Provider Mirtha ADLER, Chris Primary Care Provider Mirtha ADLER, Chris Primary Care Provider Mirtha ADLER, Chris Primary Care Provider Beatrice Parisi DO Primary Care Provider Unavailable Primary Care Provider UnavailHeron Malone [facility] [place], Beatrice Primary Care Prov ider Dr. Hermelindo Presley Attending Provider PAULA Joyce Attending Provider Chago Gallego DO Primary Care Provider PAULA Joyce Attending Provider Chago Gallego DO Primary Care Provider Beatrice Parisi DO Primary Care Provider Nghia Kelsey MD Unavailable Chago Gallego DO Primary Care Provider Nghia Kelsey MD Unavailable Unavailable Primary Care Provider UnavailSheila Zepeda DO Unavailable Gonzalo ADLER, Radha Cassie Primary Care Provider Larisa SHAREBROKER, SHAREBROKER-C Kia Attending Provider Care Physician, No Primary Referring Provider Un available Rudy SHAREBROKER, SHAREBROKER-C Niharika Attending Provider Mirtha ADLER, Chris Primary Care Provider [phone] JULIÁN CHAGO GAVI Primary Care Unavailab VASILIY Roberson Attending Unavailable JOPPERI, CHAGO GAVI Primary Care Unavailab le MAXIME, SHEILA Attending Unavailable MAXIME, HSEILA Attending Unavailable JOPPERI, CHAGO GAVI Primary Care Unavailab le MAXIME, SHEILA Attending Unavailable JOPPERI, CHAGO GAVI Primary Care Unavailab le JOPPERI, CHAGO GAVI Primary Care Unavailab le MAXIME, SHEILA Attending Unavailable JOPPERI, CHAGO GAVI Primary Care Unavailab le MAXIME, SHEILA Attending Unavailable Raffaele Gallego DOa Primary Care Provider KORI, CHRIS Attending Unavailable KORI, CHRIS Referring Unavailable GONZALO, RADHA Primary Care Unavailable KORI, CHRIS Attending Unavailable KORI, CHRIS Referring Unavailable GONZALO, RADHA Primary Care Unavailable SHANICE, JEANIE Attending Unavailable SHANICE, JEANIE Referring Unavailable KORI, CHRIS Attending Unavailable KORI, CHRIS Referring Unavailable JOPPERI, CHAGO Primary Care Unavailable KORI, CHRIS Attending Unavailable DYAN GARCIA Attending Unavailable GONZALO, RADHA Primary Care Unavailable KORI, CHRIS Attending Unavailable JOPPERI, CHAGO Primary Care Unavailable SHANICE, JEANIE Attending Unavailable FAY CARTER Attending Unavailable JOPPERI, CHAGO Referring Unavailable JOPPERI, CHAGO Primary Care Unavailable SHANICE, JEANIE Attending Unavailable SANGITA RICKETTS Attending Unavailable SANGITA RICKETTS Referring Unavailable KORI, CHRIS Attending Unavailable KORI, CHRIS Referring Unavailable GONZALO, RADHA Primary Care Unavailable Friend, Zach Consulting Unavailable Friend, Zach Attending Unavailable Friend, Zach Referring Unavailable Dayton, Radha Primary Care Unavailable Pipe Fuentes Consulting Unavailable Hermelindo Presley Referring Unavailable Hermelindo Presley Attending Unavailable Gonzalo, Radha Primary Care Unavailable Hermelindo Presley Consulting Unavailable Kancherla, Pipe Consulting Unavailable Hermelindo Presley Attending Unavailable Bortz, Hermelindo Referring Unavailable Bortz, Hermelindo Admitting Unavailable Dayton, Radha Primary Care Unavailable Borflaquito, Hermelindo Consulting Unavailable Dayton, Radha Referring Unavailable WayAric Mon Attending Unavailable Dayton, Radha Primary Care Unavailable Bortz, Hermelindo Referring Unavailable Joshua Gilmore Attending Unavailable Gonzalo, Radha Primary Care Unavailable John Hanks Attending Unavailable Gonzalo, Radha Referring Unavailable Gonzalo, Radha Primary Care Unavailable Fernandez, Hermelindo Referring Unavailable Bortz Hermelindo Attending Unavailable Gonzalo, Radha Primary Care Unavailable Gonzalo, Radha Primary Care Unavailable Megan Childress Attending Unavailable Megan Childress Referring Unavailable Kancherla, Pipe Consulting Unavailable Fernandez, Hermelindo Referring Unavailable Bortz, Hermelindo Admitting Unavailable Borflaquito, Hermelindo Attending Unavailable Dayton, Radha Primary Care Unavailable Zach Benoit Attending Unavailable Friend, Zach Referring Unavailable Dayton, Radha Primary Care Unavailable Dayton, Radha Primary Care Unavailable Aric Higuera Referring Unavailable Zack ECRVANTES, Aric Consulting Unavailable Bruce Gilmoreril Attending Unavailable Hermelindo Presley Attending Unavailable Dayton, Radha Referring Unavailable Gonzalo, Radha Primary Care Unavailable WayAric Mon Referring Unavailable WayAric Mon Attending Unavailable Dayton, Radha Primary Care Unavailable Aline Doll Attending Unavailable Aline Doll Referring Unavailable Dayton, Radha Primary Care Unavailable Dayton, Radha Primary Care Unavailable Aline Doll Attending Unavailable Aline Doll Referring Unavailable Bortz, Hermelindo Referring Unavailable BorHermelindo huddleston Attending Unavailable Dayton, Radha Primary Care Unavailable Wayt PAAric Referring Unavailable Wayt PAAric Attending Unavailable Dayton, Radha Primary Care Unavailable Gonzalo, Radha Referring Unavailable Gonzalo, Radha Primary Care Unavailable Gavin Fuller Attending Unavailable Magaly Joyce Attending Unavailable Dayton, Radha Referring Unavailable Gonzalo, Radha Primary Care Unavailable Hermelindo Presley Attending Unavailable Dayton, Radha Referring Unavailable Gonzalo, Radha Primary Care Unavailable Bortz, Hermelindo Attending Unavailable Dayton, Radha Referring Unavailable Gonzalo, Radha Primary Care Unavailable Hannah Sanchez Attending Unavailable Dayton, Radha Referring Unavailable Dayton, Radha Primary Care Unavailable Hermelindo Preslye Attending Unavailable Gonzalo, Radha Referring Unavailable Gonzalo, Radha Primary Care Unavailable Gonzalo, Radha Primary Care Unavailable Joshua Gilmore Attending Unavailable Dayton, Radha Referring Unavailable Dayton, Radha Primary Care Unavailable Gavin Fuller Attending Unavailable Hermelindo Presley Attending Unavailable Gonzalo, Radha Referring Unavailable Gonzalo, Radha Primary Care Unavailable Dayton, Radha Referring Unavailable Dayton, Radha Primary Care Unavailable Aric Higuera Attending Unavailable Dayton, Radha Referring Unavailable Dayton, Radha Primary Care Unavailable Aline Doll Attending Unavailable Hannah Sanchez Attending Unavailable Dayton, Radha Referring Unavailable Dayton, Radha Primary Care Unavailable Allergies Allergy Classification Reported Allergen(s) Allergy Type Date of Onset Reaction(s) Facility (10 sources) Nitrofurantoin Drug Allergy 07-14-19 18 [place], [place] (10 sources) Phenazopyridine Drug Allergy 10-17-19 18 [place] (20 sources) silver sulfADIAZINE; Translations: [SILVER SULFADIAZINE] Drug Allergy 01-26-20 15 [place] (10 sources) Sulfamethoxazole / Trimethoprim Drug Allergy 10-14-19 18 Hives, Other (See Comments) [place] (10 sources) Tetracyclines & Related Propensity to adverse reactions to drug 01-26-20 15 [place] (2 sources) Adhesive Tape Propensity to adverse reactions to drug 04-20-19 22 Rash [facility] (20 sources) Erythromycin; Translations: [ERYTHROMYCIN] Drug Allergy 12-28-19 19 Hives, Unknown [facility] (20 sources) Latex; Translations: [LATEX] Propensity to adverse reactions to drug 01-26-20 15 Rash [facility] Work Phone: (2 sources) Apricot Flavor Propensity to adverse reactions to drug 04-13-19 [facility] (20 sources) NITROFURANTOIN, MACROCRYSTALS / Nitrofurantoin, Monohydrate; Translations: [NITROFURANTOIN MONOHYD/M-CRYST] Drug Allergy 12-28-19 [facility] Work Phone: (20 sources) Phenazopyridine; Translations: [PHENAZOPYRIDINE] Drug Allergy 10-01-19 [facility] Work Phone: (20 sources) Tetracycline; Translations: [TETRACYCLINE HCL] Drug Allergy 12-28-19 Unknown [facility] (20 sources) Soy protein; Translations: [SOY] Drug Allergy 04-10-19 Anaphylaxis [facility] (4 sources) Azithromycin Drug Allergy 04-23-19 [facility] (20 sources) Nitrofurantoin Drug Allergy 04-23-19 [facility] (20 sources) Tetracycline Drug Allergy 04-23-19 [facility] (20 sources) Latex Propensity to adverse reactions 07-17-19 [facility] (20 sources) Silver sulfadiazine Propensity to adverse reactions 07-17-19 [facility] (3 sources) Sulfonamides (Antibiotic) Allergy to substance 11-02-19 [facility] (1 source) Adhesive agent Drug allergy (disorder) 12-31-19 [facility] (1 source) apricot extract Drug Allergy 12-31-19 [facility] (1 source) Azithromycin Drug Allergy 12-31-19 [facility] (1 source) Latex Drug allergy (disorder) 12-31-19 [facility] (1 source) Nitrofurantoin Drug Allergy 12-31-19 [facility] (1 source) Phenazopyridine Drug Allergy 12-31-19 [facility] (1 source) silver sulfADIAZINE Drug Allergy 12-31-19 [facility] (1 source) Sulfonamides (Antibiotic) Drug allergy (disorder) 12-31-19 [facility] (1 source) Tetracycline Drug Allergy 12-31-19 [facility] NEGATED: Highlighted row has been ruled out! (2 sources) Other Propensity to adverse reactions 04-13-19 [facility] Work Phone: Medications Current Medications Medication [...] Comment on above: Take 2 tablets by mo [facility] every 4 hours as needed for pain. amitriptyline hydrochloride 25 mg oral tablet (20 sources) Tricyclic Antidepressant Start: 04-19-19 End: 04-18-19 take 1 tablet by mouth once daily amitriptyline (Elavil) 25 MG tablet Indications: Chronic migraine w/o aura w/o status migrainosus, not intractable Take 1 tablet (25 mg) by mouth daily. 30 tablet 2 04/19/2023 Active Start: 07-25-2019 take 1 tablet by herberth th once daily amitriptyline (ELAVIL) 25 MG tablet Indications: Dysuria , Pelvic pain , Interstitial cystitis Take 1 tablet by mouth nightly 30 tablet 5 07/25/2019 Active Comment on above: Take 1 tablet by herberth every afternoon. 24 hr buPROPion hydrochloride 150 mg extended release oral tablet (5 sources) Aminoketone Start: 04-03-19 End: 10-01-19 take 1 tablet by mouth once daily buPROPion XL (WELLBUTRIN XL) 150 mg 24 hr tablet Indications: PTSD (post-traumatic stress disorder) , Severe episode of recurrent major depressive disorder, without psychotic features (HCC) Take 1 tablet by mouth once daily. 90 tablet 07/02/2024 09/30/2024 Active calcium chloride 0.0014 meq/ml / potassium chloride 0.004 meq/ml / sodium chloride 0.103 meq/ml / sodium lactate 0.028 meq/ml injectable solution (1 source) Start: 04-20-19 lactated ringers infusion cephalexin 500 mg oral capsule (2 sources) Cephalosporin Antibacterial Start: 05-03-19 End: 05-10-19 take 1 capsule by mouth twice daily [...] days 14 tablet 0 11/28/2018 12/05/2018 Active clomiPHENE citrate 50 mg oral tablet [...] 04-20-2021 fentaNYL (SUBL IMAZE) injection 25 mcg fluconazole 150 mg oral tablet (6 sources) Azole Antifungal Start: 05-27-2024 End: 05-31-2024 fluconazole (Diflucan) 150 MG tablet Take 1 tablet (150 mg) by mouth Every 3 days for 2 doses. 2 tablet 05/27/2024 05/31/2024 Active Start: 03-06-2024 End: 03-10-2024 fluconazole (Diflucan) 150 M G tablet Indications: Vagina, candidiasis Take 1 tablet (150 mg) by mouth Every 3 days for 2 doses. 2 tablet 03/06/2024 03/10/2024 Active Start: 01-07-2024 End: 01-07-2024 take 1 tablet by mouth once fluconazole (Diflucan) 150 MG tablet Take 1 tablet (150 mg) by mouth Once for 1 dose. 1 tablet 01/07/2024 01/07/2024 Start: 01-02-2024 End: 01-02-2024 take 1 tablet by mouth once fluconazole (Diflucan) 150 MG tablet Take 1 tablet (150 mg) by mouth Once for 1 dose. 1 tablet 01/02/2024 01/02/2024 Active fluticasone propionate 0.05 mg/actuat metered dose nasal [...] on above: Take 1 tablet by herberth every 6 hours as needed for pain. Iron (20 sources) Iron 18 mg tab T mema by mouth. Active Iron 18 mg tab [...] nosus (FLORAJEN WOMEN) 15 billion cell capsule (20 sources) Start: 10-26-2022 take 1 capsule by [...] on above: Take 1 capsule by mo [facility] once daily. labetalol hydrochloride 5 mg/ml injectable solution (1 source) beta-Adrenergic Nilesh Start: 04-20-2021 labetalol (NORMODYNE;TRANDATE ) injection 5 mg Magnesium (1 source) Start: 02-26-2023 take 250 mg by mouth once daily Magnesium Active 250 MG PO DAILY February 26, 2023 12:00am magnesium oxide 400 mg oral tablet (20 [...] 1 tablet by herberth th once daily. 1 ml meperidine hydrochloride 25 mg/ml cartridge (1 source) Opioid Agonist Start: meperidine (DEMEROL) injection 12.5 mg naproxen 500 mg oral tablet (6 sources) Nonsteroidal Anti-inflammatory Drug Start: 1 take 1 tablet by mouth twice daily [...] with meals 60 tablet 2 06/03/2019 Active [place] (Nk) (2 sources) Start: 11-01-2022 [place] (Nk) A ctive October 31, 2022 11:00pm Start: 11-01-2022 [place] (Nk) A ctive November 01, 2022 12:00am oxyCODONE hydrochloride 5 mg oral tablet (8 [...] (ROXICODONE) immed iate release tablet 5 mg pantoprazole 40 mg delayed release oral tablet (1 source) Proton Pump Inhibitor Start: 10-21-2024 pantoprazole (ProtoNix) 40 MG EC tablet 10/21/2024 Active PNV no.95/ferrous fum/folic ac ( ORAL) (20 sources) PNV no.95/ferrou s fum/folic ac ( ORAL) Take by mouth. Active PNV no.95/ferrou s fum/folic ac ( ORAL) Take by mouth. 0 Active Comment on above: Take by mouth. prazosin 5 mg oral capsule (20 sources) alpha-Adrenergic Nilesh Start: 05-12-2024 End: 08-10-2024 take 1 capsule by mouth once daily at bedtime prazosin (MINIPRESS) 5 mg cap Indications: PTSD (post-traumatic stress disorder) , Nightmares associated with chronic post-traumatic stress disorder Take 1 capsule by mouth daily at bedtime. 30 capsule 2 05/12/2024 08/10/2024 Active Start: 04-29-2024 End: 08-27-2024 take 4 capsules by mouth once daily at bedtime prazosin (MINIPRESS) 1 mg cap Indications: PTSD (post-traumatic stress disorder) , Nightmares associated with chronic post-traumatic stress disorder Take 4 capsules by mouth daily at bedtime. 120 capsule 1 04/29/2024 05/12/2024 Discontinued Start: 02-25-2024 End: 06-24-2024 take 2 capsules by mouth once daily at bedtime prazosin (MINIPRESS) 2 mg cap Indications: PTSD (post-traumatic stress disorder) , Nightmares associated with chronic post-traumatic stress disorder Take 2 capsules by mouth daily at bedtime. 120 capsule 1 02/25/2024 03/06/2024 Discontinued (Adjust Sig - Block E-Cancel) Start: 01-23-2024 End: 07-04-2024 take 3 capsules by mouth once daily at bedtime prazosin (MINIPRESS) 1 mg cap Indications: PTSD (post-traumatic stress disorder) , Nightmares associated with chronic post-traumatic stress disorder Take 3 capsules by mouth daily at bedtime. 120 capsule 1 03/06/2024 04/29/2024 Discontinued (Adjust Sig - Block E-Cancel) Start: 01-08-2024 End: 02-07-2024 take 1 capsule by mouth once daily at bedtime prazosin (MINIPRESS) 1 mg cap Take 1 capsule by mouth daily at bedtime. 30 capsule 01/08/2024 01/23/2024 Discontinued (Adjust Sig - Block E-Cancel) Start: 05-08-2023 End: 07-07-2023 take 1 capsule by mouth once daily at bedtime prazosin (MINIPRESS) 1 mg cap Indications: Encounter for completion of form with patient , PTSD (post-traumatic stress disorder) , Insomnia due to mental condition , Nightmares associated with chronic post-traumatic stress disorder Take 1 capsule by mouth daily at bedtime. 30 capsule 1 05/08/2023 07/07/2023 Active take 4 capsules by m outh three times daily prazosin (Minipress) 1 MG capsule Take 4 mg by mouth 3 times daily. Active take 1 capsule by mo uth three times daily prazosin (Minipress) 1 MG capsule Take 1 mg by mouth 3 times daily. Active Comment on above: Take 1 capsule by mo uth daily at bedtime. Vit-Fe Fumarate-FA (PNV FOLIC ACID + IRON) 27-1 MG TABS (8 sources) Start: take 1 tablet by mouth once daily Vit-Fe Fumarate-FA (PNV FOLIC ACID + IRON) 27-1 MG TABS Take 1 tablet by mouth daily 30 tablet 6 02/10/2020 Active 1 ml promethazine hydrochloride 25 mg/ml injection (1 source) Phenothiazine Start: End: promethazine (PHENERGAN) injection 6.25 mg propranolol hydrochloride 40 mg oral tablet (4 sources) beta-Adrenergic Nilesh Start: End: take 1 tablet by mouth once daily propranolol (Inderal) 40 MG tablet Indications: Migraine without aura and without status migrainosus, not intractable Take 1 tablet (40 mg) by mouth daily. 30 tablet 2 02/14/2023 05/15/2023 Active rizatriptan 10 mg disintegrating oral tablet (20 sources) Serotonin-1b and Serotonin-1d Receptor Agonist Start: End: rizatriptan GEOGRAPHIC INFORMATION SYSTEM SURVEYOR (Maxalt-GEOGRAPHIC INFORMATION SYSTEM SURVEYOR) 10 MG disintegrating tablet Indications: Chronic migraine w/o aura w/o status migrainosus, not intractable Take 1 tablet (10 mg) by mouth Once as needed for migraine (can repeat x 1 in 2 hours). May repeat in 2 hours if unresolved. Do not exceed 30 mg in 24 hours. 9 tablet 3 04/19/2023 Active tranexamic acid 650 mg oral tablet (15 sources) Antifibrinolytic Agent Start: take 2 tablets by mouth three times daily as needed tranexamic acid (Lysteda) 650 MG tablet tablet Take 2 tablets (1,300 mg) by mouth 3 times daily as needed (heavy bleeding). 30 tablet 2 02/06/2024 Active Vitamin B Complex (20 sources) vitamin B comple x (B COMPLEX ORAL) Take by mouth. Active vitamin B comple x (B COMPLEX ORAL) Take by mouth. 0 Active Comment on above: Take by mouth. Completed/Discontinued Medications Medication Drug Class(es) Dates Sig (Normalized) Sig (Original) acetaminophen 300 mg / HYDROcodone bitartrate 5 mg oral tablet (4 sources) Opioid Agonist Start: 10-07-2022 End: 10-26-2022 take 1 tablet by mouth every six hours Hydrocodone-Acetami nophen Discontinued 1 TABLET PO EVERY 6 HOURS 12 October 07, 2022 October 26, 2022 12:34pm Start: 03-28-2020 End: 03-31-2020 take 1 tablet by mouth every four hours as needed for pain, then take 1 tablet by mouth as needed for pain HYDROcodone-acetaminophen (NORCO) 5-325 MG per tablet Indications: Closed displaced fracture of navicular bone of left foot with routine healing, subsequent encounter Take 1 tablet by mouth every 4 hours as needed for Pain for up to 3 days. Intended supply: 3 days. Take lowest dose possible to manage pain 18 tablet 0 03/28/2020 03/31/2020 Active [place] (17 sources) End: 03-05-2024 take 10 mg by mouth once daily BORON PO Take 10 mg by mouth 1 (one) time each day. 03/05/2024 Discontinued take 10 mg by mouth once daily B ORON PO Take 10 mg by mouth 1 (one) time each day. Active citric acid 66.8 mg/ml / sodium citrate 100 mg/ml oral solution (2 sources) Calculi Dissolution Agent, Anti-coagulant Start: 07-16-2022 End: 07-16-2022 take 30 mL by mouth once 30 mL, Oral, Once, On 07/16/22 at 0130, For 1 dose, Pre-Delivery Give immediately prior to transfer to surgery. clindamycin 10 mg/ml topical lotion (20 sources) Lincosamide Antibacterial Start: 11-09-2023 End: 03-05-2024 clindamycin (Cleocin T) 1 % lotion Apply a thin layer to affected areas twice daily. 60 mL 6 11/09/2023 03/05/2024 Discontinued (Side effects) 1 ml diphenhydrAMINE hydrochloride 50 mg/ml cartridge [...] 10 mg by mouth daily 0 Active ulthwkla-jrtvdivtkulp-swjtlp er (REPHRESH) gel (2 sources) Start: 09-01-2022 End: 09-27-2022 yuznyyfv-inpecgnumbei-wjqozc er (REPHRESH) gel Indications: Vaginal discharge , [...] days as needed for vaginal odor). hydrocortisone 25 mg/ml topical cream (9 sources) Corticosteroid Start: 10-13-2022 End: 10-26-2022 Hydrocortisone Discontinued 1 APPLIC TOPICAL TWICE A DAY October 12, 2022 11:00pm October 26, 2022 12:35pm Start: 10-12-2022 End: 10-13-2022 Hydrocortisone Acetate Disco ntinued 25 MG RC TWICE A DAY October 11, 2022 11:00pm October 13, 2022 8:47am Start: 10-12-2022 End: 10-13-2022 Hydrocortisone Acetate Disco ntinued 25 MG RC TWICE A DAY October 12, 2022 12:00am October 13, 2022 9:47am Start: 07-17-2022 End: 07-19-2022 hydrocortisone (Anusol-HC) s uppository 25 mg Start: 04-22-2021 hydrocortisone (ANUSOL-HC) 2.5 % CREA rectal cream Apply bid 1 each 0 04/22/2021 Active Hydrocortisone Acetate (Anusol-Hc) 25 mg suppository (3 sources) Start: 10-11-2022 End: 10-12-2022 Hydrocortisone Acetate (Anusol-Hc) 25 mg suppository Discontinued 25 MG RC TWICE A DAY October 10, 2022 11:00pm October 12, 2022 12:45pm Start: 10-11-2022 End: 10-12-2022 Hydrocortisone Acetate (Anus ol-Hc) 25 mg suppository Discontinued 25 MG RC TWICE A DAY October 11, 2022 12:00am October 12, 2022 1:45pm HYDROmorphone (Dilaudid) injection 0.25 mg (2 sources) [...] on above: Take 1 capsule by mo [facility] once daily. lanolin 1000 mg/ml topical cream [...] 07-19-2022 phenylephrine-mine ral oil-petrolatum (Preparation H) ointment mirtazapine 15 mg oral tablet (20 sources) Start: 03-06-2024 End: 05-05-2024 take 1 tablet by mouth once daily at bedtime mirtazapine (REMERON) 30 mg tablet Indications: PTSD (post-traumatic stress disorder) , Severe episode of recurrent major depressive disorder, without psychotic features (HCC) , Insomnia due to mental condition Take 1 tablet by mouth daily at bedtime. 30 tablet 1 03/06/2024 03/18/2024 Discontinued (Adjust Sig - Block E-Cancel) Start: 02-25-2024 End: 04-25-2024 take 1 tablet by mouth once daily at bedtime, then take 0.5 tablet by mouth once daily at bedtime mirtazapine (REMERON) 15 mg tablet Indications: PTSD (post-traumatic stress disorder) , Severe episode of recurrent major depressive disorder, without psychotic features (HCC) , Insomnia due to mental condition Take 1 tablet by mouth daily at bedtime for 7 days, THEN 0.5 tablets daily at bedtime. 30 tablet 1 03/18/2024 04/03/2024 Discontinued Start: 01-23-2024 End: 03-23-2024 take 4 tablets by mouth once daily mirtazapine (Remeron) 7.5 MG tablet Take 30 mg by mouth Nightly. 01/23/2024 Active Start: 01-23-2024 End: 03-23-2024 take 1 tablet by mouth once daily mirtazapine (Remeron) 7.5 MG tablet Take 1 tablet by mouth Nightly. 01/23/2024 03/23/2024 Active Start: 01-08-2024 End: 02-07-2024 take 1 tablet by mouth once daily at bedtime mirtazapine (REMERON) 15 mg tablet Indications: PTSD (post-traumatic stress disorder) , Severe episode of recurrent major depressive disorder, without psychotic features (HCC) , Insomnia due to mental condition Take 1 tablet by mouth daily at bedtime. 30 tablet 01/08/2024 01/23/2024 Discontinued (Adjust Sig - Block E-Cancel) 1 ml nalbuphine hydrochloride 10 mg/ml injection (1 source) Opioid Agonist/Antagonist Start: 06-02-2021 End: 06-02-2021 nalbuphine (NUBAIN) injection 10 mg NIFEdipine (2 sources) Dihydropyridine Calcium Channel Nilesh Start: 04-10-2022 End: 04-10-2022 apply 1 g [...] disintegrating tablet 4 mg polyethylene glycol 3350 53914 mg powder for oral solution (2 sources) Osmotic Laxative Start: 07-17-2022 End: 07-19-2022 polyethylene glycol (PEG) 3350 (Miralax) packet 17 g Dqldzncg-Wm-Nta-Fe-FA ( VITAMIN) tab (15 sources) End: 02-20-2022 take 1 tablet by mouth once Wagzzzfy-Zk-Nfo-Fe-F A ( VITAMIN) tab Take 1 tablet by mouth. 0 02/20/2022 Discontinued take 1 tablet by mouth once Pren atal Vxwjdljq-Vo-Bws-Fe-FA ( VITAMIN) tab Take 1 tablet by mouth. 0 Active Comment on above: Take 1 tablet by herberth th. MV-Min-Fe Fum-FA-DHA ( 1 PO) (20 sources) End: 03-05-2024 MV-Min-Fe Fum-FA-DHA ( 1 PO) Take by mouth. 03/05/2024 Discontinued MV-Min- Fe Fum-FA-DHA ( 1 PO) Take by mouth. Active MV-Min- Fe Fum-FA-DHA ( 1 PO) Take by mouth. 0 Active vitamin tablet (2 sources) Start: 07-16-2022 End: 07-19-2022 take 1 tablet by mouth once daily 1 tablet, Oral, Daily, First dose on 07/16/22 at 0900, Begin when normal bowel activity resumes. sertraline 50 mg oral tablet (14 sources) Serotonin Reuptake Inhibitor Start: 04-10-2022 End: 09-27-2022 take 1 tablet by mouth once daily, [...] 80 mg chewable tablet (2 sources) Start: 07-16-2022 End: 07-19-2022 take 1 tablet by mouth every six hours as needed 80 mg, Oral, Every 6 hours PRN, flatulence, cramping, Starting on 07/16/22 at 0625, 5 ml sodium chloride 9 mg/ml injection (12 sources) Start: 07-16-2022 End: 07-19-2022 take 1 dose intravenously twice daily 5-40 mL, IntraVENous, Every 12 hours scheduled (2 times per day), First dose on 07/16/22 at 0900, or Line Patency: Peripheral IV = 5 mL; Midline or Central Line = 10 mL/lumen. &am p;nbsp;If following IV push medication, administer flush at same rate as the IV push. Flush volume is determined by type of infusion therapy being given. For non-viscous solutions use: Peripher al IV = 5 mL Midline or Central Line = 10 mL/lumen &nbs p;For viscous solutions (i.e. blood components, parenteral nutrition, contrast media, or after obtaining blood sample) use: Peripher al IV = 10 mL Midline or Central Line = 20 mL/lumen Start: 07-16-2022 End: 07-19-2022 5-250 mL/hr, IntraVENous, VA N, if patient receiving piggyback infusions and maintenance fluids are not ordered OR KVO fluids to protect IV site / prevent frequent line interruptions/ long duration, Starting on 07/16/22 at 0625, For piggyback infusion, administer [...] line use, Starting on 07/16/22 at 0625, or Line Patency: Peripheral [...] Translations: [Multiple food allergies] Episodic Anxiety disorders (20 sources) Posttraumatic stress disorder; Translations: [Post-traumatic stress disorder, unspecified] Onset: 01-08-2024 12-08-2022 Chronic Complications of surgical procedures or medical care (2 sources) Wound pain ; Translations: [Other postprocedural complications of skin and subcutaneous tissue] Episodic Deficiency and other anemia (1 source) Iron deficiency anemia; Translations: [Iron deficiency anemia, unspecified] 11-23-2022 Episodic Esophageal disorders (1 source) Gastro-esophageal reflux disease without esophagitis; Translations: [Gastro-esophageal reflux disease without esophagitis] Onset: 06-30-2024 Chronic Genitourinary symptoms and ill-defined conditions (1 source) Mixed urinary incontinence; Translations: [Mixed incontinence] 02-06-2024 Chronic Headache; including migraine (20 sources) Chronic intractable migraine without aura; Translations: [Chronic migraine without aura, intractable, without status migrainosus] Onset: 06-24-2020 06-24-2020 Chronic Headache; including migraine (1 source) Headache; Translations: [Headaches] Episodic Miscellaneous mental health disorders (20 sources) 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 disorder; Translations: [Insomnia due to other mental disorder] Onset: 01-08-2024 12-08-2022 Chronic Mood disorders (20 sources) Depressive disorder; Translations: [Depression, unspecified depression type] Onset: 01-08-2024 Chronic Mycoses (1 source) Candidiasis of vagina; Translations: [Vagina, candidiasis] 03-06-2024 Episodic Other and unspecified benign neoplasm (1 source) Multiple benign melanocytic nevi ; Translations: [Melanocytic nevi of right upper limb, including shoulder] 11-08-2023 Episodic Other complications of (5 sources) Anemia during - baby not yet delivered; Translations: [Anemia complicating , unspecified trimester] Onset: 10-22-2020 01-30-2021 Chronic Other connective tissue disease (1 source) Pain in right foot; Translations: [Pain in right foot] 10-23-2024 Episodic Other connective tissue disease (2 sources) Pain in right foot; Translations: [Pain in right foot] Onset: 10-23-2024 Episodic Other female genital disorders (2 sources) Abnormal uterine bleeding; Translations: [Abnormal uterine and vaginal bleeding, unspecified] 12-21-2023 Chronic Other female genital disorders (1 source) Pain in female genitalia on intercourse; Translations: [Unspecified dyspareunia] 01-02-2024 Chronic Other female genital disorders (4 sources) Abnormal uterine and vaginal bleeding, unspecified; Translations: [Abnormal uterine and vaginal bleeding, unspecified] Onset: 12-21-2023 Chronic Other female genital disorders (1 source) Unspecified dyspareunia; Translations: [Unspecified dyspareunia] Onset: 12-22-2024 Chronic Other female genital disorders (6 sources) Vaginal discharge; Translations: [Other specified noninflammatory disorders of vagina] Episodic Other female genital disorders (2 sources) Vaginal odor; Translations: [Other specified noninflammatory disorders of vagina] Episodic Other female genital disorders (1 source) Vulval irritation; Translations: [Other specified noninflammatory disorders of vulva and perineum] 05-27-2024 Episodic Other gastrointestinal disorders (1 source) Abdominal bloating; Translations: [Abdominal distension (gaseous)] 11-23-2022 Episodic Other inflammatory condition of skin (1 source) Pruritus of vulva; Translations: [Pruritus vulvae] 01-02-2024 Episodic Other injuries and conditions due to external causes (1 source) Injury of left foot; Translations: [Unspecified injury of left foot, initial encounter] 10-13-2022 Episodic Other nervous system disorders (1 source) Other chronic pain; Translations: [Other chronic pain] Onset: 08-06-2024 Chronic Other screening for suspected conditions (not mental disorders or infectious disease) (4 sources) Magnetic resonance imaging of brain abnormal; Translations: [Other abnormal findings on diagnostic imaging of central nervous system] Onset: 12-22-2024 02-26-2023 Episodic Other skin disorders (1 source) Loss [...] Acne vulgaris; Translations: [Acne vulgaris] 11-08-2023 Episodic Residual codes; unclassified (2 sources) [...] ] Episodic Residual codes; unclassified (2 sources) Family history of malignant neoplasm of digestive organ; Translations: [Family history of malignant neoplasm of digestive organs] 12-21-2023 Episodic Sprains and strains (2 sources) Unspecified sprain of right great toe, initial encounter; Translations: [Unspecified sprain of right great toe, initial encounter] Onset: 10-23-2024 Episodic Superficial injury; contusion (1 source) Contusion of right great toe; Translations: [Contusion of right great toe without damage to nail, initial encounter] 10-23-2024 Episodic Unclassified (1 source) APPOINTMENT CANCELLED Urinary tract infections (20 sources) Chronic interstitial cystitis; Translations: [Interstitial cystitis (chronic) without hematuria] Onset: 09-30-2020 04-20-2021 Chronic Past or Other Problems Problem Classification Problem Date Documented Da te Episodic/Chronic Abdominal hernia (1 source) Diaphragmatic hernia without obstruction or gangrene; Translations: [Diaphragmatic hernia without obstruction or gangrene] Onset: 5 Episodic Abdominal pain (20 sources) Abdominal discomfort; Translations: [Flank pain] Onset: 2 Episodic Deficiency and other anemia (20 sources) Anemia; Translations: [Anemia, unspecified] Onset: 3 04-23-2022 Episodic Deficiency and other anemia (1 source) Anemia, unspecified; Translations: [Anemia, unspecified] 02-26-2023 Episodic Fracture of lower limb (20 sources) Closed fracture of navicular bone of foot; Translations: [Closed fracture of calcaneus] Onset: 1 03-29-2020 Episodic Genitourinary symptoms and ill-defined conditions (20 sources) Increased frequency of urination; Translations: [Incomplete emptying of bladder] Onset: 8 10-10-2017 Episodic Hemorrhoids (20 sources) Hemorrhoids; Translations: [Unspecified hemorrhoids] Onset: 2 05-02-2021 Episodic Malaise and fatigue (3 sources) Malaise and fatigue; Translations: [Other malaise] Episodic Mood disorders (20 sources) Mood disorders Onset: 3 10-27-2022 Nonspecific chest pain (2 sources) Chest pain, unspecified; Translations: [Chest pain, unspecified] Onset: 5 Episodic Other complications of ; puerperium affecting management of mother (20 sources) ultrasound scan abnormal; Translations: [Maternal care for other (suspected) abnormality and damage, not applicable or unspecified] Onset: 1 Resolved: 2 09-03-2020 Episodic Other complications of ; puerperium affecting management of mother (20 sources) Delivery finding; Translations: [Complication of labor and delivery, unspecified] Onset: 1 Resolved: 2 01-30-2021 Episodic Other complications of (16 sources) Anemia of ; Translations: [Anemia complicating , unspecified trimester] Onset: 1 Resolved: 2 12-05-2021 Chronic Other complications of (20 sources) ; Translations: [Supervision of with history of infertility, unspecified trimester] Onset: 1 Resolved: 2 01-30-2021 Episodic Other complications of (20 sources) Insufficient care; Translations: [Supervision of with insufficient care, unspecified trimester] Onset: 1 Resolved: 2 01-30-2021 Episodic Other complications of (20 sources) Finding of pattern of ; Translations: [Supervision of other high risk pregnancies, unspecified trimester] Onset: 2 Resolved: 3 11-24-2021 Episodic Other complications of (16 sources) Pruritus of ; Translations: [Diseases of the skin and subcutaneous tissue complicating , unspecified trimester] Onset: 1 Resolved: 1 01-30-2021 Episodic Other female genital disorders (4 sources) Other specified noninflammatory disorders of vagina; Translations: [Leukorrhea, not specified as infective] Onset: 4 10-26-2022 Episodic Other female genital disorders (2 sources) Other specified noninflammatory disorders of vulva and perineum; Translations: [Other specified noninflammatory disorders of vulva and perineum] Onset: 5 Episodic Other gastrointestinal disorders (1 source) Disease of intestine, unspecified; Translations: [Disease of intestine, unspecified] Onset: 4 Episodic Other inflammatory condition of skin (5 sources) Itching of skin; Translations: [Pruritus, unspecified] Onset: 1 01-30-2021 Episodic Other inflammatory condition of skin (16 sources) Pruritus, unspecified; Translations: [Unspecified pruritic disorder] Onset: 1 Resolved: 2 12-05-2021 Episodic Other inflammatory condition of skin (2 sources) Pruritus vulvae; Translations: [Pruritus vulvae] Onset: 4 Episodic Other and delivery including normal (20 sources) Patient encounter status; Translations: [Encounter for supervision of normal , unspecified, unspecified trimester] Onset: 1 Resolved: 3 07-21-2020 Episodic Other skin disorders (1 source) Xeroderma; Translations: [Xerosis cutis] 02-26-2023 Episodic Other skin disorders (1 source) Xerosis cutis; Translations: [Keratoderma, acquired] 02-26-2023 Episodic Other skin disorders (2 sources) Disorder of the skin and subcutaneous tissue, unspecified; Translations: [Disorder of the skin and subcutaneous tissue, unspecified] Onset: 4 Episodic Other skin disorders (2 sources) Other hypertrophic disorders of the skin; Translations: [Other hypertrophic disorders of the skin] Onset: 4 Episodic Prolonged (20 sources) Gestation period, 42 weeks; Translations: [Post-term ] Onset: 3 Episodic Residual codes; unclassified (20 sources) FH: Congenital heart disease; Translations: [Family history of other congenital malformations, deformations and chromosomal abnormalities] Onset: 1 01-30-2021 Episodic Residual codes; unclassified (20 sources) Hereditary disorder of endocrine system; Translations: [Genetic susceptibility to other disease] Onset: 2 11-24-2021 Episodic Residual codes; unclassified (3 sources) Family history of cancer of colon; Translations: [Family history of malignant neoplasm of digestive organs] 10-11-2022 Episodic Residual codes; unclassified (3 sources) Family history of malignant neoplasm of digestive organs; Translations: [Family history of malignant neoplasm of gastrointestinal tract] Onset: 4 10-11-2022 Episodic Residual codes; unclassified (1 source) Other specified postprocedural states; Translations: [Other specified postprocedural states] Onset: 5 Episodic Screening and history of mental health and substance abuse codes (20 sources) History of post-traumatic stress disorder; Translations: [Personal history of other mental and behavioral disorders] Onset: 1 01-30-2021 Episodic Spondylosis; intervertebral disc disorders; other back problems (2 sources) Dorsalgia, unspecified; Translations: [Sacrococcygeal disorders, not elsewhere classified] Onset: 5 Episodic Urinary tract infections (20 sources) Recurrent urinary tract infection; Translations: [Urinary tract infection, site not specified] Onset: 8 08-30-2017 Episodic Results Test Name Value Interpretation Reference Range Facility Pelvic w/ Transvaginalon Pelvic w/ Transvaginal [facility] [address] [place] [address] Pelvic w/ Transvaginal MR#: [id number] Acct: [id number] Name: RG KELLEY Rep #: [id number] : 1990 F 34 From: Nick patterson MD PCP: Dr. Radha Agee MD Status: REG CLI Study: Pelvic w/ Transvaginal Date of Exam: 01/06/25 Exam# [id number] Ordering Dr: Aline Doll PROCEDURE: PELVIC W/ TRANSVAGINAL REASON FOR EXAM: DYSPAREUNIA TECHNIQUE: Procedure Code: USPELTVAG Modality: US Procedure: PELVIC W/ TRANSVAGINAL COMPARISON: None FINDINGS: LMP: December 29, 2024 Measurements: Uterus: 8.6 cm x 5.3 cm x 4.3 cm with a volume of 102.6 mL Endometrial Thickness: 5 mm. It is trilaminar in appearance. Right Ovary: 2.6 cm x 3.6 cm x 1.7 cm with a volume of 8.4 mL. Left Ovary: 2.3 cm x 1.9 cm x 1.4 cm with a volume of 3.2 mL. TRANSABDOMINAL: Uterus: Normal size, myometrial echotexture, and contour. Endometrium: Unremarkable. Right ovary: Normal size and echotexture. Left ovary: Normal size and echotexture. Other: No large pelvic mass identified. Transvaginal sonography was performed to better visualize the endometrium. TRANSVAGINAL: Uterus: Anteverted. Normal contour and myometrial echotexture. Endometrium: Normal echotexture. Right ovary: Normal size and echotexture. Left ovary: Normal size and echotexture. Other adnexal findings: None. Cul-de-sac: No free intraperitoneal fluid identified. Tenderness: No tenderness US/Pelvic w/ Transvaginal IMPRESSION: NORMAL TRANSABDOMINAL AND TRANSVAGINAL PELVIC ULTRASOUND. Reading Location: [facility] CC: Dr. Radha Agee MD; Dr. Aline Doll MD Client Service Administrator: Signed Normal [facility] Surgery Visit Reporton 12-30 Surgery Visit Report [facility] [address] [place] [address] OFFICE VISIT Date of Service: 12/30/24 MR#: [id number] Acct: [id number] Name: RG KELLEY Rep #: [id number] : 1990 Provider: JESUS MANUEL mccray Age/Sex: 34/F Location: [facility] Status: Signed Intake Vital Signs 12/22/24 11:20 Height 5 ft 8 in Weight: 168 lb 5 oz BMI 25.5 BP 123/74 H Intake Visit Reasons: THROMBOSED HEMORROIDS Chief Complaint: thrombosed hemorrhoid Is patient in pain?: No Allergies adhesive Allergy (Severe, Verified 12/30/24 10:16) Hives latex Allergy (Severe, Verified 12/30/24 10:16) Hives soy Allergy (Severe, Verified 12/30/24 10:16) Anaphylaxis apricot Allergy (Intermediate, Verified 12/30/24 10:16) Anaphylaxis phenazopyridine (From Pyridium) Allergy (Mild, Verified 12/30/24 10:16) hives silver sulfadiazine (From Silvadene) Allergy (Mild, Verified 12/30/24 10:16) Hives Sulfa (Sulfonamide Antibiotics) Allergy (Mild, Verified 12/30/24 10:16) Hives azithromycin Allergy (Verified 12/30/24 10:16) Hives nitrofurantoin Allergy (Verified 12/30/24 10:16) Hives tetracycline Allergy (Verified 12/30/24 10:16) Hives Medications ???Medication ???Instructions ???Recorded ???Confirmed ???Type BEET ROOT 1 cap PO DAILY 04/22/24 12/30/24 H istory CLORAPHIL 1 cap PO DAILY 04/22/24 12/30/24 H istory FEVER FEW 1 cap PO DAILY 04/22/24 12/30/24 H istory GOTUKOLA 1 cap PO DAILY 04/22/24 12/30/24 H istory Lactobacillus acidophilus 250 500 mmu cells PO DAILY 04/22/24 History million cell capsule (Probiotic Acidophilus) VIKKI ROOT 1 cap PO DAILY 04/22/24 12/30/24 H istory boron 6 mg tablet 6 mg PO DAILY 04/22/24 12/30/24 Hi story ferrous sulfate 325 mg (65 mg 325 mg PO DAILY 04/22/24 12/30/24 History iron) tablet magnesium 250 mg tablet 250 mg PO DAILY 04/22/24 12/30/24 History zinc gluconate 50 mg tablet 50 mg PO DAILY 04/22/24 12/30/24 H istory adrenal complex PO 04/23/24 12/30/24 History berberine chloride 500 mg capsule 1,500 mg PO 04/23/24 12/30/24 His tory black currant seed oil .Route 04/23/24 12/30/24 History calcium acetate PO 04/23/24 12/30/24 History levomefolate 15 mg-algal oil 1 cap PO QDAY 04/23/24 12/30/24 Hi story 90.314 mg capsule (L-Methylfolate Forte) pyridoxine (vitamin B6) PO 04/23/24 12/30/24 History sunflower lecithin PO 04/23/24 12/30/24 History quercetin 500 mg capsule 1,000 mg PO DAILY 06/05/24 5 History tranexamic acid 650 mg tablet 1,300 mg (2 x 650 mg) PO TID 5 09/1012/30/24 Rx days #30 tabs oxycodone 5 mg tablet 5 mg PO Q6H PRN pain 2 days #4 tab s 12/30/24 12/30/24 Rx PFSH Medical History Easy bruising Blackout Asthma Interstitial cystitis Migraine headache History of hiatal hernia Shortness of breath on exertion History of echocardiogram GERD (gastroesophageal reflux disease) Disease of intestine, unspecified Colonic thickening Abnormal finding on MRI of brain Depression Anxiety Low iron Non-smoker Family history of colon cancer in father Thrombosed hemorrhoids Anemia PTSD (post-traumatic stress disorder) MTHFR mutation Surgical History S/P laparoscopic fundoplication History of esophagogastroduodenosc opy (EGD) History of H/O cystoscopy Hx of colonoscopy S/P wrist surgery Family History Mother Aortic valve, bicuspid PTSD (post-traumatic stress disorder) Anemia Depression Ovarian cyst Father Crohn's disease Schizophrenia Aunt Schizophrenia Grandfather Cancer melanoma CVA (cerebral vascular accident) Social History household members: children housing: house current occupational status: unemployed Smoking Status: Never smoker Electronic Cigarette Use: not used alcohol intake: never substance use type: does not use what type of physical activity do you participate in: none seatbelt use: always do you feel safe at home: Yes Female Reproductive History Menstrual Ab spontaneous: 1 HPI HPI HPI: Patient is a 34 y/o F who has noted external hemorrhoids for many years. She notes thrombosed hemorrhoids intermittently. She notes having one opened and drained in the ED years ago. She notes her current thrombosed hemorrhoid she has had for a few days. She has tried sitz bathes without relief. She is taking a stool softener to keep her stools soft. She denies recent constipation or having to strain. She has taken 800 mg ibuprofen prior to coming today. ROS General (more content not included)... Normal [facility] Genital Culture Comprehensiv lucrecia 12-25-2024 VAC Reason for Exam: AUB Normal vaginal brennen isolated. No yeast, Gardnerella, Neisseria or beta-hemolytic Streptococcus isolated. Normal [facility] Comment on above: Performed By: #### M 100.2000, M100.3200, L7400.0280 ####[facility] [address] [place], [address] PAP IG HPV APTIMA 16/18,45on 12-25-2024 ADEQ Comment Normal . [facility] Comment on above: Order Comment: Speci men Comment: [id number] Comment: No. of containers..01 ThinPrep Vial Result Comment: Sati sfactory for evaluation. Endocervical and/or squamous metaplastic cells (endocervical component) are present. Performed By: #### M 100.1999, M100.3200, L7400.0280 ####[facility] [address] [place], [place], [address] COMM . Normal . [facility] Comment on above: Order Comment: Speci men Comment: [id number] Comment: No. of containers..01 ThinPrep Vial Performed By: #### M 100.1999, M100.3200, L7400.0280 ####[facility] [address] [place], [address] COMMENT Comment Normal . [facility] Comment on above: Order Comment: Speci men Comment: [id number] Comment: No. of containers..01 ThinPrep Vial Result Comment: This liquid based ThinPrep(R) pap test was interpreted using the Mowdo(R) Genius(TM) Cervical Algorithm whole slide imaging system. Performed By: #### M 100.1999, M100.3200, L7400.0280 ####[facility] [address] [place], [address] DIAG Comment Normal . [facility] Comment on above: Order Comment: Speci men Comment: [id number] Comment: No. of containers..01 ThinPrep Vial Result Comment: NEGA TIVE FOR INTRAEPITHELIAL LESION OR MALIGNANCY. Performed By: #### M 100.1999, M100.3200, L7400.0280 ####[facility] [address] [place], [address] HPV APTIMA, HR Negative Normal Negative [facility] Comment on above: Order Comment: Speci men Comment: [id number] Comment: No. of containers..01 ThinPrep Vial Result Comment: This nucleic acid amplification test detects fourteen high- risk HPV types (16,18,31,33,35,39,45,51,52,56,58,59,66,68) without differentiation. Performed By: #### M 100.1999, M100.3200, L7400.0280 ####[facility] [address] [place], [place], [id number] HPV Gely Rfx Comment Normal . [facility] Comment on above: Order Comment: Speci men Comment: [id number] Comment: No. of containers..01 ThinPrep Vial Result Comment: Crit ershonna not met, HPV Genotype not performed. Performed at: - [facility] [id number] Concrete Sculptor: Alannah Pang MD, Phone: [phone] Performed at: = - [facility] [address] [id number] Concrete Sculptor: Alannah Pang MD, Phone: [phone] Performed By: #### M 100, M100.3200, L7400.0280 ####[facility] [address] [place], [place], [id number] PAPSMR Comment Normal . [facility] Comment on above: Order Comment: Speci men Comment: [id number] Comment: No. of containers..01 ThinPrep Vial Result Comment: The Pap smear is a screening test designed to aid in the detection of premalignant and malignant conditions of the uterine cervix. It is not a diagnostic procedure and should not be used as the sole means of detecting cervical cancer. Both false-positive and false-negative reports do occur. Performed By: #### M 100.1999, M100.3200, L7400.0280 ####[facility] [address] [place], [place], [id number] PERFORM Comment Normal . [facility] Comment on above: Order Comment: Speci men Comment: [id number] Comment: No. of containers..01 ThinPrep Vial Result Comment: Amanda Lay, Braid Maker (ASCP) Performed By: #### M 100.2000, M100.3200, L7400.0280 ####[facility] [address] [place], [address] CBC W/Diff, Automatedon 10-0 6-2025 Absolute Lymph 2.51 X10 3/uL Normal 0.83-4.51 [facility] Comment on above: Performed By: #### L 501.9520, L100.0100 ####[facility] [address] [place], [address] Absolute Neut 6.2 X10 3/uL Normal 2.0-7.7 [facility] Comment on above: Performed By: #### L 501.9520, L100.0100 ####[facility] [address] [place], [address] Basophils/100 WBC (Bld) 0.3 % Normal 0-1 [facility] Comment on above: Performed By: #### L 501.9520, L100.0100 ####[facility] [address] [place], [address] Eosinophils/100 WBC (Bld) 1.5 % Normal 0-5 [facility] Comment on above: Performed By: #### L 501.9520, L100.0100 ####[facility] [address] [place], [address] Erythrocyte distribution width (RBC) [Ratio] 13.6 % Normal 11.6-14.6 [facility] Comment on above: Performed By: #### L 501.9520, L100.0100 ####[facility] [address] [place], [address] Hematocrit (Bld) [Volume fraction] 40.7 % Normal 37-47 [facility] Comment on above: Performed By: #### L 501.95, L100.0100 ####[facility] [address] [place], [address] Hemoglobin (Bld) [Mass/Vol] 12.8 g/dL Normal 12.0-15.0 [facility] Comment on above: Performed By: #### L 501.9519, L100.0100 ####[facility] [address] [place], [address] IG% 0.200 Normal 0.0-0.9 [facility] Comment on above: Result Comment: IG% - Immature Granulocytes (promyelocytes, myelocytes and metamyelocytes) > 1% indicates that a LEFT SHIFT is Present. Performed By: #### L 501.9519, L100.0100 ####[facility] [address] [place], [address] Lymphocytes/100 WBC (Bld) 26.9 % Normal 19-41 [facility] Comment on above: Performed By: #### L 501.9519, L100.0100 ####[facility] [address] [place], [address] MCH (RBC) [Entitic mass] 25.2 pg Low 27.0-32.0 [facility] Comment on above: Performed By: #### L 501.9519, L100.0100 ####[facility] [address] [place], [address] MCHC (RBC) [Mass/Vol] 31.4 g/dL Low 32-36 [facility] Comment on above: Performed By: #### L 501.9520, L100.0100 ####[facility] [address] [place], [address] MCV (RBC) [Entitic vol] 80.3 fL Low 81-99 [facility] Comment on above: Performed By: #### L 501.9520, L100.0100 ####[facility] [address] [place], [address] Monocytes/100 WBC (Bld) 4.8 % Normal 0-10 [facility] Comment on above: Performed By: #### L 501.9520, L100.0100 ####[facility] [address] [place], [address] Neutrophils/100 WBC (Bld) 66.3 % Normal 47-70 [facility] Comment on above: Performed By: #### L 501.9520, L100.0100 ####[facility] [address] [place], [address] Nucleated RBC (Bld) [#/Vol] 0 10*3/uL Normal 0-5 [facility] Comment on above: Performed By: #### L 501.9520, L100.0100 ####[facility] [address] [place], [address] Platelet mean volume (Bld) [Entitic vol] 9.5 fL Normal 6.2-12.0 [facility] Comment on above: Performed By: #### L 501.9520, L100.0100 ####[facility] [address] [place], [address] Platelets (Bld) [#/Vol] 351 10*3/uL Normal 150-450 [facility] Comment on above: Performed By: #### L 501.9520, L100.0100 ####[facility] [address] [place], [address] RBC (Bld) [#/Vol] 5.07 10*6/uL Normal 4.2-5.4 [facility] Comment on above: Performed By: #### L 501.9520, L100.0100 ####[facility] [address] [place], [address] RDW SD 39.3 fl Normal 35.1-43.9 [facility] Comment on above: Performed By: #### L 501.9520, L100.0100 ####[facility] [address] [place], [address] WBC (Bld) [#/Vol] 9.3 10*3/uL Normal 4.4-11.0 [facility] Comment on above: Performed By: #### L 501.9520, L100.0100 ####[facility] [address] [place], [address] Gram Stainon 12-22-2024 GS Reason for Exam: AUB Gram Stain 1+ Gram positive cocci 4+ Gram positive rods No Gram negative diplococci Score = 0 Interpretation: 0-3 Normal, 4-6 Intermediate, 7-10 Positive BV Normal [facility] Comment on above: Performed By: #### M 100.2000, M100.3200, L7400.0280 ####[facility] [address] [place], [address] Mold Runner Office Visit Reporton 12-22-2024 Mold Runner Office Visit Report [facility]'s [address], [address] [place] [address] OFFICE VISIT Date of Service: 12/22/24 MR#: [id number] Acct: [id number] Name: RG KELLEY Rep #: [id number] : 1990 Provider: Dr. 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 Is patient in pain?: No Allergies adhesive Allergy (Severe, Verified 12/22/24 11:22) Hives latex Allergy (Severe, Verified 12/22/24 11:22) Hives soy Allergy (Severe, Verified 12/22/24 11:22) Anaphylaxis apricot Allergy (Intermediate, Verified 12/22/24 11:22) Anaphylaxis phenazopyridine (From Pyridium) Allergy (Mild, Verified 12/22/24 11:22) hives silver sulfadiazine (From Silvadene) Allergy (Mild, Verified 12/22/24 11:22) Hives Sulfa (Sulfonamide Antibiotics) Allergy (Mild, Verified 12/22/24 11:22) Hives azithromycin Allergy (Verified 12/22/24 11:22) Hives nitrofurantoin Allergy (Verified 12/22/24 11:22) Hives tetracycline Allergy (Verified 12/22/24 11:22) Hives Medications ???Medication ???Instructions ???Recorded ???Confirmed ???Type BEET ROOT 1 cap PO DAILY 04/22/24 12/22/24 H istory CLORAPHIL 1 cap PO DAILY 04/22/24 12/22/24 H istory FEVER FEW 1 cap PO DAILY 04/22/24 12/22/24 H istory GOTUKOLA 1 cap PO DAILY 04/22/24 12/22/24 H istory Lactobacillus acidophilus 250 500 mmu cells PO DAILY 04/22/24 History million cell capsule (Probiotic Acidophilus) LULUMELLOW ROOT 1 cap PO DAILY 04/22/24 12/22/24 H istory boron 6 mg tablet 6 mg PO DAILY 04/22/24 12/22/24 Hi story ferrous sulfate 325 mg (65 mg 325 mg PO DAILY 04/22/24 12/22/24 History iron) tablet magnesium 250 mg tablet 250 mg PO DAILY 04/22/24 12/22/24 History zinc gluconate 50 mg tablet 50 mg PO DAILY 04/22/24 12/22/24 H istory adrenal complex PO 04/23/24 12/22/24 History berberine chloride 500 mg capsule 1,500 mg PO 04/23/24 12/22/24 His tory black currant seed oil .Route 04/23/24 12/22/24 History calcium acetate PO 04/23/24 12/22/24 History levomefolate 15 mg-algal oil 1 cap PO QDAY 04/23/24 12/22/24 Hi story 90.314 mg capsule (L-Methylfolate Forte) pyridoxine (vitamin B6) PO 04/23/24 12/22/24 History sunflower lecithin PO 04/23/24 12/22/24 History quercetin 500 mg capsule 1,000 mg PO DAILY 06/05/24 5 History tranexamic acid 650 mg tablet 1,300 mg (2 x 650 mg) PO TID 5 09/1012/22/24 Rx days #30 tabs Is last menstrual period known: Yes Last Menstrual Period: 11/28/24 (painful and heavy periods) Post menopausal: No Patient : No : No PFSH Medical History Easy bruising Blackout Asthma Interstitial cystitis Migraine headache History of hiatal hernia Shortness of breath on exertion History of echocardiogram GERD (gastroesophageal reflux disease) Disease of intestine, unspecified Colonic thickening Abnormal finding on MRI of brain Depression Anxiety Low iron Non-smoker Family history of colon cancer in father Thrombosed hemorrhoids Anemia PTSD (post-traumatic stress disorder) MTHFR mutation Surgical History S/P laparoscopic fundoplication History of esophagogastroduodenosc opy (EGD) History of H/O cystoscopy Hx of colonoscopy S/P wrist surgery Family History Mother Aortic valve, bicuspid PTSD (post-traumatic stress disorder) Anemia Depression Ovarian cyst Father Crohn's disease Schizophrenia Aunt Schizophrenia Grandfather Cancer melanoma CVA (cerebral vascular accident) Social History household members: children housing: house current occupational status: unemployed Smoking Status: Never smoker Electronic Cigarette Use: not used alcohol intake: never substance use type: does not use what type of physical activity do you participate in: none seatbelt use: always do you feel safe at home: Yes History 3 Elective abortions Hx Para 2 Spontaneous abortions 1 Hx # Term Pregnancies Ectopic pregnancies Hx # Pregnancies Multiple births # of living children 2 Past Pregnancies Del. Date Name GA/Weeks Outcome Route Bth Weight Infant Gen Labor Lgth Anesthesia Del Locatn Provider FOB Unknown 2022 Hyperion Unknown 2020 Damian Unknown 2015 spontaneous HPI Encounter for routin (more content not included)... Normal [facility] Thyroid Stim Hormone (TSH)on 12-22-2024 TSH 1.110 uIU/mL Normal 0.300-4.200 [facility] Comment on above: Performed By: #### L 501.9520, L100.0100 ####[facility] [address] [place], [address] XR FOOT 3+ VIEWS RIGHTon XR FOOT 3+ VIEWS RIGHT Patient Name: RG ORELLANA : 1990 Exam Date/Time: 10/23/2024 11:43 Procedure: XR FOOT 3+ VIEWS RIGHT Ordering Provider: RICKETTS BLOSSOM Reason For Exam: PAIN RIGHT FOOT: CLINICAL INDICATION: PAIN. TECHNIQUE: Weight-bearing AP, Lat, Oblique COMPARISON: None. FINDINGS: There is no evidence for fracture or dislocation. No bone lesion is identified. There is no soft tissue abnormality. IMPRESSION: Normal right foot. Report Dictated on Electronically Signed By: Morro Herndon MD Electronically Signed Date/Time: 10/27/2024 1:26 PM EDT Normal [facility] Office Visiton 10-23-2024 Follow-up visit [id number] Liang Kelley 1990 F Date Provider Department Center 10/23/2024 53296-ETKKSGWSANGITA RICKETTS M [facility] None Family History Problem Relation Age of Onset No Known Problems Paternal Grandfather No Known Problems Paternal Grandmother No Known Problems Maternal Grandmother No Known Problems Maternal Grandfather Cancer Father Colon cancer Father 40 Other Father Comments: crohns Other Mother Comments: migraines Celiac disease Mother High Blood Pressure Brother No Known Problems Brother No Known Problems Sister No Known Problems Sister No Known Problems Sister Breast cancer Other Comments: maternal great aunt Ovarian cancer Other Uterine cancer Neg Hx Family Status - Relation Status Age at Paternal Grandfather Alive Paternal Grandmother Alive Maternal Grandmother Alive Maternal Grandfather Alive Father Alive Mother Alive Brother Alive Brother Alive Sister Alive Sister Alive Sister Alive Other Neg Hx Level of Service:74530 [facility] OFFICE/OUTPATIENT NEW LOW MDM 30 MINUTES Reason for Visit and Comments: New Patient [542] - Right Foot Normal [facility] Progress Noteon 10-23-2024 Progress Note [facility] - [address] [address] Dept: [phone] Dept Chief Complaint Patient presents with New Patient Right Foot Subjective History of Present Illness: Rg Kelley is a 34 y.o. female who presents today for evaluation of right foot pain. Location: Right Big Toe Onset: 1 day Injury: fell down the steps and landed on big toe Quality: dull, sharp, stabbing Radiation of symptoms: no Severity: 2/10 at rest and 5/10 at worst Exacerbating factor(s): walking Relieving factor(s): ice, elevation, rest Timing: all day Imaging to date: x-rays completed today while in office Treatment to date: PT/OT/HEP: no Ice: yes, not helpful Heat: no Medications: Tylenol: no NSAIDs: no Oral steroids: no Muscle relaxants: no Nerve medications: no Targeted injections: none Assistive devices: none Prior surgery: no Tripped on stairs, landed with foot in plantarflexion directly on great toe 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 Respiratory: Breathing comfortably on room air. No respiratory distress. Skin: Warm, dry, intact. No visible rashes or erythema overlying area of focused exam. Right Foot: Inspection: Swelling:mild at great toe Ecchymosis: small amount of ecchymoses at dorsal aspect of great toe. No plantar ecchymoses No redness noted. no warmth Edema: Negative Ankle ROM: normal Pain to palpation: 1st proximal phalanx and IP joint > great toe MTP joint and distal phalanx. Otherwise nontender in lower leg, foot and ankle. Strength: 5 on 5 tibialis anterior strength, 5 of 5 EHL strength, 5 of 5 gastroc-soleus strength, 5 of 5 EDL strength, 5 of 5 peroneus longus, 5 of 5 tibialis posterior, 5 of 5 FHL, and 5 of 5 FDL Pain with FHL testing Vascular: normal DP and PT pulses, no trophic changes or ulcerative lesions, and normal sensory exam External Notes No recent notes available Labs Lab Results Component Value Date HGBA1C 4.8 04/30/2021 Lab Results Component Value Date CREATININE 0.65 11/27/2022 Imaging WB AP, lateral and oblique views of the Right foot were obtained today and personally reviewed. The midfoot alignment is normal. The talar dome is normal. The subtalar joint is normal. Degenerative changes not present, there is an accessory navicular. No other soft tissue or bony abnormalities are noted. EMG/NCT None available Procedure No procedures completed today Assessment Diagnosis Plan 1. Right foot pain XR foot 3+ views right General supply request: post -op shoe 2. Contusion of right great toe without damage to nail, initial encounter General supply request: post -op shoe Plan History, imaging and exam consistent with contusion Reviewed imaging in room with Rg, discussed findings of no fracture Pathophysiology and treatment strategies of bony contusions discussed Given her degree of pain, and discomfort with jude taping yesterday, will trial short course of WBAT in post op shoe, with tylenol s needed. Will see back in 2 weeks for recheck Consider repeat imaging pending response to these measures Follow up in about 2 weeks (around 11/06/2024). Sangita Ricketts DO 10/23/2024 11:52 AM Please note that portions of this note may have been completed with voice recognition software. Documentation reviewed prior to signing but minor errors in tune up mechanic may have occurred. Normal [facility] Internal Medicine Office Vis jonna 08-06-2024 Internal Medicine Office Visit [facility] [address] [place], [place] [address] OFFICE VISIT Date of Service: 08/06/24 MR#: [id number] Acct: [id number] Name: RG KELLEY SAM Rep #: [id number] : 1990 Provider: EHLEN Mercer Age/Sex: 33/F Location: [facility] Status: Signed Intake Vital Signs 05/23/24 14:03 08/04/24 13:20 08/06/24 08:44 Height 5 ft 8 in 5 ft 8 in 5 ft 8 in Weight: 175 lb 8 oz BMI 26.6 Respiration 16 Pulse 83 Pulse Source Monitor Temp 96 F L Temp Source Temporal Pulse Oximetry (%) 98 Oxygen Delivery Method room air Intake Visit Reasons: ACUTE - WANTS REFERRAL Chief Complaint: referral wanted 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 Accompanied by: Self Is patient in pain?: Yes (sciatica) Pain scale (1-10): 9 Allergies adhesive Allergy (Severe, Verified 08/06/24 08:43) Hives latex Allergy (Severe, Verified 08/06/24 08:43) Hives soy Allergy (Severe, Verified 08/06/24 08:43) Anaphylaxis apricot Allergy (Intermediate, Verified 08/06/24 08:43) Anaphylaxis phenazopyridine (From Pyridium) Allergy (Mild, Verified 08/06/24 08:43) hives silver sulfadiazine (From Silvadene) Allergy (Mild, Verified 08/06/24 08:43) Hives Sulfa (Sulfonamide Antibiotics) Allergy (Mild, Verified 08/06/24 08:43) Hives azithromycin Allergy (Verified 08/06/24 08:43) Hives nitrofurantoin Allergy (Verified 08/06/24 08:43) Hives tetracycline Allergy (Verified 08/06/24 08:43) Hives Medications ???Medication ???Instructions ???Recorded ???Confirmed ???Type BEET ROOT 1 cap PO DAILY 04/22/24 08/06/24 H istory CLORAPHIL 1 cap PO DAILY 04/22/24 08/06/24 H istory FEVER FEW 1 cap PO DAILY 04/22/24 08/06/24 H istory GOTUKOLA 1 cap PO DAILY 04/22/24 08/06/24 H istory Lactobacillus acidophilus 250 500 mmu cells PO DAILY 04/22/24 History million cell capsule (Probiotic Acidophilus) MARSHMELLOW ROOT 1 cap PO DAILY 04/22/24 08/06/24 H istory boron 6 mg tablet 6 mg PO DAILY 04/22/24 08/06/24 Hi story ferrous sulfate 325 mg (65 mg 325 mg PO DAILY 04/22/24 08/06/24 History iron) tablet magnesium 250 mg tablet 250 mg PO DAILY 04/22/24 08/06/24 History zinc gluconate 50 mg tablet 50 mg PO DAILY 04/22/24 08/06/24 H istory adrenal complex PO 04/23/24 08/06/24 History berberine chloride 500 mg capsule 1,500 mg PO 04/23/24 08/06/24 His tory black currant seed oil .Route 04/23/24 08/06/24 History calcium acetate PO 04/23/24 08/06/24 History levomefolate 15 mg-algal oil 1 cap PO QDAY 04/23/24 08/06/24 Hi story 90.314 mg capsule (L-Methylfolate Forte) pyridoxine (vitamin B6) PO 04/23/24 08/06/24 History sunflower lecithin PO 04/23/24 08/06/24 History quercetin 500 mg capsule 1,000 mg PO DAILY 06/05/24 5 History Nurse's Note: sciatica nerve pain right side and when actively hurting its a 9 PFSH Medical History Easy bruising Blackout Asthma Interstitial cystitis Migraine headache History of hiatal hernia Shortness of breath on exertion History of echocardiogram GERD (gastroesophageal reflux disease) Disease of intestine, unspecified Colonic thickening Abnormal finding on MRI of brain Depression Anxiety Low iron Non-smoker Family history of colon cancer in father Thrombosed hemorrhoids Anemia PTSD (post-traumatic stress disorder) MTHFR mutation Surgical History S/P laparoscopic fundoplication History of esophagogastroduodenosc opy (EGD) History of H/O cystoscopy Hx of colonoscopy S/P wrist surgery Family History Mother Aortic valve, bicuspid PTSD (post-traumatic stress disorder) Anemia Depression Ovarian cyst Father Crohn's disease Schizophrenia Aunt Schizophrenia Grandfather Cancer melanoma CVA (cerebral vascular accident) Social History household members: children housing: house current occupational status: unemployed Smoking Status: Never smoker Electronic Cigarette Use: not used alcohol intake: never substance use type: does not use what type of physical activity do you participate in: none seatbelt use: always do you feel safe at home: Yes HPI HPI Chief Complaint: referral wanted Details: RG KELLEY, is a 33 F who presents to the office today for requesting a referral for her chronic back issues. She states that she has pinched nerves periodically where she has to see a chiropractor regular. She has tried lots of stretching, lifting, and other exercises for the back and has never really changed anything. She states that the past 6 months have been worse than before. She states that she gets p (more content not included)... Normal [facility] Coronary Angiography CTon Coronary Angiography CT [facility] Imaging Services [address] [place] [address] 08/04/24 1806 MR#: [id number] Acct: [id number] Name: RG KELLEY Rep #: [id number] : 1990 33 From: Joshua Gilmore MD PCP: Dr. Radha Agee MD Status:REG CLI Y Location: CT CCTA w/Cont Coronary Arteries Date of Study:: 08/04/24 Chest pain Coronary Calcium Scoring: High-resolution Computed Tomographic imaging of the chest was performed on [08/04/24 ], with particular attention paid to the coronary arteries. Intravenous contrast agent was administered per protocol and images reconstructed and displayed. LEFT MAIN CORONARY ARTERY: This is from the left main coronary cusp and bifurcates to left anterior descending artery and left circumflex artery. No stenosis or calcification is noted [] LEFT ANTERIOR DESCENDING CORONARY ARTERY: Arises from the left main coronary artery and courses towards the apex of the ventricle. Gives of a prominent first diagonal branch with no significant atherosclerotic plaquing. The left anterior descending artery itself has no atherosclerotic plaquing present. [] LEFT CIRCUMFLEX CORONARY ARTERY: Nondominant vessel with a first obtuse marginal branch and then continues as an AV groove branch with no significant atherosclerotic plaquing noted [] RIGHT CORONARY ARTERY: Dominant right coronary artery arising from the right coronary cusp with no atherosclerotic plaquing or coronary calcification present. [] THORACIC AORTA: Normal size Conclusion: CT angiogram demonstrating no atherosclerotic plaquing and normal coronary arteries. Calcium Scoring Interpretation: Different methods to categorize the overall amount of coronary plaque. Overall amount CAC SIS Visual of coronary plaque P1 Mild -100 <2 1-2 vessels with mild amount of plaque P2 Moderate 101-300 3-4 1-2 vessels with moderate amount, 3 vessels with mild amount of plaque P3 Severe 301-999 5-7 3 vessels with moderate amount, 1 vessel with severe amount of plaque P4 Extensive >1000 >8 2-3 vessels with severe amount of plaque Conclusion: Normal coronary arteries. 08/04/24 1810 Date Joshua Gilmore MD Cosigner Signature (if applicable): Date CC: Dr. Radha Agee MD; Dr. Joshua Gilmore MD; HELEN Mercer Signed Normal [facility] Limited Chest CT Cardiac Onl yon 08-04-[address] Cardiac Only [facility] Imaging Services [address] [place] [address] Cardiac Only MR#: [id number] Acct: [id number] Name: RG KELLEY Rep #: [id number] : 1990 F 33 From: Nick patterson MD PCP: Dr. Radha Agee MD Status: [facility] Study: Limited Chest CT Cardiac Only Date of Exam: Exam# [id number] Ordering Dr: Aric Dixon PROCEDURE: LIMITED CHEST CT CARDIAC ONLY REASON FOR EXAM: CHEST PAIN TECHNIQUE: Supine chest CT with IV contrast administration. Isovue 370. 60 mL. One or more dose reduction techniques were used (e.g., Automated exposure control, adjustment of the mA and/or kV according to patient size, use of iterative reconstruction technique). COMPARISON: None FINDINGS: Hardware: None Lymph nodes: No suspicious lymph nodes are seen. Heart and Vasculature: Normal heart size. No pericardial effusion. Coronary Artery Calcifications: Absent Lungs and Airways: The lungs are normally expanded and clear. No septal thickening nodules or abnormal pulmonary opacities. Pleura: Unremarkable Upper Abdomen: Diffuse fatty infiltration of the liver. Bones: Bone windows are unremarkable. CT/Limited Chest CT Cardiac Only IMPRESSION: Coronary artery calcification (CAC) is is absent Fatty infiltration of the liver. Reading Location: [facility] CC: Dr. Radha Agee MD; HELEN Mercer Client Service Administrator: Signed Normal [facility] Surgery Visit Reporton 07-28 Surgery Visit Report [facility] [address] [place] [address] OFFICE VISIT Date of Service: 07/28/24 MR#: [id number] Acct: [id number] Name: RG KELLEY Rep #: [id number] : 1990 Provider: Dr. Hermelindo hay MD Age/Sex: 33/F Location: [facility] Status: Signed Intake Vital Signs 05/23/24 14:03 Height 5 ft 8 in Intake Visit Reasons: REVIEW RESULTS OF ESOPHAGRAM Chief Complaint: review esophagram Is patient in pain?: No Allergies adhesive Allergy (Severe, Verified 07/28/24 10:05) Hives latex Allergy (Severe, Verified 07/28/24 10:05) Hives soy Allergy (Severe, Verified 07/28/24 10:05) Anaphylaxis apricot Allergy (Intermediate, Verified 07/28/24 10:05) Anaphylaxis phenazopyridine (From Pyridium) Allergy (Mild, Verified 07/28/24 10:05) hives silver sulfadiazine (From Silvadene) Allergy (Mild, Verified 07/28/24 10:05) Hives Sulfa (Sulfonamide Antibiotics) Allergy (Mild, Verified 07/28/24 10:05) Hives azithromycin Allergy (Verified 07/28/24 10:05) Hives nitrofurantoin Allergy (Verified 07/28/24 10:05) Hives tetracycline Allergy (Verified 07/28/24 10:05) Hives Medications ???Medication ???Instructions ???Recorded ???Confirmed ???Type pantoprazole 40 mg tablet,delayed 40 mg PO QDAY #60 tabs 02/27/24 0 07/28/24 Rx release Held on 05/24/24. Instructions: Resume on 06/07/24. BEET ROOT 1 cap PO DAILY 04/22/24 07/28/24 H istory Held on 05/24/24. Instructions: Resume on 05/26/24. CLORAPHIL 1 cap PO DAILY 04/22/24 07/28/24 H istory FEVER FEW 1 cap PO DAILY 04/22/24 07/28/24 H istory GOTUKOLA 1 cap PO DAILY 04/22/24 07/28/24 H istory Held on 05/24/24. Instructions: Resume on 05/30/24. Monitor for any nausea or stomach pains Lactobacillus acidophilus 250 500 mmu cells PO DAILY 04/22/24 History million cell capsule (Probiotic Acidophilus) MARCIALLOW ROOT 1 cap PO DAILY 04/22/24 07/28/24 H istory boron 6 mg tablet 6 mg PO DAILY 04/22/24 07/28/24 Hi story ferrous sulfate 325 mg (65 mg 325 mg PO DAILY 04/22/24 07/28/24 History iron) tablet magnesium 250 mg tablet 250 mg PO DAILY 04/22/24 07/28/24 History zinc gluconate 50 mg tablet 50 mg PO DAILY 04/22/24 07/28/24 H istory adrenal complex PO 04/23/24 07/28/24 History berberine chloride 500 mg capsule 1,500 mg PO 04/23/24 07/28/24 His tory Held on 05/24/24. Instructions: Resume on 05/30/24. black currant seed oil .Route 04/23/24 07/28/24 History Held on 05/24/24. Instructions: Resume on 05/26/24. calcium acetate PO 04/23/24 07/28/24 History levomefolate 15 mg-algal oil 1 cap PO QDAY 04/23/24 07/28/24 Hi story 90.314 mg capsule (L-Methylfolate Forte) pyridoxine (vitamin B6) PO 04/23/24 07/28/24 History sunflower lecithin PO 04/23/24 07/28/24 History Held on 05/24/24. Instructions: Resume on 05/30/24. famotidine 20 mg tablet (Pepcid) 20 mg PO BID #60 tabs 05/28/2403/12 Rx quercetin 500 mg capsule 1,000 mg PO DAILY 06/05/24 5 History Subjective Details: Patient 33-year-old female status post hiatal hernia repair with laparoscopic toupee fundoplication 05/23/2024. She reports today for rescheduled follow-up after upper GI study performed via barium swallow 06/24/2024. Her last visit here was 06/05/2024. Patient states that she is doing well at this point. She states she has had just 1 episode of reflux since her last visit. She attributes this to potential overuse of Excedrin which she is using to treat frequent migraines. When she experienced this reflux she took Tums with immediate relief. She is not taking anything on a regular basis to suppress stomach acid. She also reports some mild difficulty swallowing but states that this seems to be limited to times when she is either eating deviled eggs or pasta. She shares she had a suture spit from one of her wounds a while back and took matters upon herself to trim the suture as low as she could using cuticle cutters and has had no further difficulties. Lastly she reports that she is down 20 pounds since her surgery and making healthier life choices. Objective Details: Constitutional: Patient appears upbeat and pleased with her outcome Abdomen: Well-healed port site incisions, nondistended, soft, mild tenderness with palpation elicited in epigastrium Coding Level of Care Code Global Post Op Diagnoses S/P laparoscopic fundoplication Z98.890 [facility] Medical History Easy bruising Blackout Asthma Interstitial cystitis Migraine headache History of hiatal hernia Shortness of breath on exertion History of echocardiogram GERD (gastroesophageal reflux disease) Disease of intestine, unspecified (more content not included)... Normal [facility] Echo Completeon 07-07-2024 Echo Complete [facility] [place] [address] Echo Complete 07/07/24 1514 MR#: [id number] Acct: [id number] Name: RG KELLEY Rep #: [id number] : 1990 33 From: Joshua Gilmore MD Attending Dr: HELEN Mercer Status: REG CLI Ordering Dr: Aric Dixon Date: 07/07/24 Location: [facility] Sex: F UTD Admitted: Reason For Study Reason For Study: Chest Pain Procedure This was a 2D Doppler, Color Flow transthoracic echocardiogram. Exam performed in department. Left Ventricle Normal LV size. Left ventricular systolic function is normal. The left ventricular ejection fraction is 60 %. No regional wall motion abnormalities noted. Right Ventricle Normal RV size. Normal systolic function. Atria Normal left atrium. Normal right atrium. Mitral Valve Normal mitral valve. Tricuspid Valve Normal tricuspid valve. Aortic Valve Trisinus/trileaflet aortic valve. Pulmonic Valve Normal pulmonic valve. Great Vessels Normal sized aortic root. The pulmonary artery is normal size. Inferior vena cava collapse with respiration. Pericardium/Pleural No pericardial effusion. MMode/2D Measurements Calculations LVIDd: 4.9 cm IVSd: 0.72 cm Ao root diam: 2.5 cm LVIDs: 3.2 cm LVPWd: 0.74 cm RVDd: 3.4 cm FS: 34.4 % LAV(MOD-bp): 38.2 ml LVAd ap4: 28.9 cm2 SV(MOD-sp4): 52.7 ml LAV(MOD-bp) Indexed: 19.8 ml/m2 LVLd ap4: 7.3 cm SI(MOD-sp4): 27.3 ml/m2 LAV(MOD-sp2): 41.1 ml EDV(MOD-sp4): 93.6 ml LAV(MOD-sp4): 35.2 ml EDV(sp4-el): 97.2 ml LVAs ap4: 17.2 cm2 LVLs ap4: 5.9 cm ESV(MOD-sp4): 41.0 ml ESV(sp4-el): 42.2 ml EF(MOD-sp4): 56.3 % EF(sp4-el): 56.6 % SV(sp4-el): 55.1 ml LA A4 area: 13.4 cm2 LA dimension(2D): 3.3 cm RA A4 area: 13.4 cm2 TAPSE: 2.3 cm Time Measurements MV dec time: 0.21 sec Doppler Measurements Calculations MV E max chava: 77.6 cm/sec Lat Peak E' Chava: 17.0 cm/sec Med Peak E' Chava: 9.8 cm/sec MV A max chava: 55.4 cm/sec E/E' lat: 4.6 E/E' med: 8.0 MV E/A: 1.4 Ao V2 max: 137.4 cm/sec LV V1 max: 95.1 cm/sec MV dec slope: 372.1 cm/sec2 Ao max P.6 mmHg LV V1 max P.6 mmHg Ao V2 mean: 109.6 cm/sec Ao mean P.0 mmHg Ao V2 VTI: 31.0 cm PA V2 max: 96.5 cm/sec PI end-d chava: 74.8 cm/sec TR max chava: 237.2 cm/sec TR max P.5 mmHg ECHO/Echo Complete Interpretation Summary Normal LV size. Left ventricular systolic function is normal. The left ventricular ejection fraction is 60 %. Trisinus/trileaflet aortic valve. Ordering Physician: Aric Dixon Referring Physician: Radha Agee Performed By: Bridgett Davis, RAJ, RVT 07/07/24 1633 Date Joshua Gilmore MD CC: Dr. Radha Agee MD; HELEN Mercer Date Dictated: 07/07/24 1514 Date Transcribed: 07/07/24 1633 Client Service Administrator: Signed Normal [facility] Esophagus Dual Contraston Esophagus Dual Contrast [facility] Imaging Services [address] [place], [place] [address] Esophagus Dual Contrast MR#: [id number] Acct: [id number] Name: RG KELLEY Rep #: [id number] : 1990 F 33 From: Fernando Martinez MD PCP: Dr. Radha Agee MD Status: REG CLI Study: Esophagus Dual Contrast Date of Exam: 06/24/24 Exam# [id number] Ordering Dr: Hermelindo Presley MD EXAM: DOUBLE-CONTRAST ESOPHAGRAM CLINICAL HISTORY: Patient had recent fundoplication surgery, May of 2024. Bouts of dysphagia and reflux. Patient on a pure a diet. COMPARISON: No relevant priors. TECHNIQUE: Following the ingestion of effervescent granules and high density barium, swallowing mechanism was evaluated under fluoroscopy in the oblique, AP, lateral, and RPO positions. Barium tablet was also utilized. Imaging sequences were documented as usual. FLUOROSCOPIC TIME: 135 sec Dose: 12.14 mGy FLUOROGRAPHIC IMAGES: 11 imaging sequences. FINDINGS: No abnormalities were seen in the hypopharynx. Esophageal motility was normal. Liquid barium passed freely through the esophagogastric junction. Once the barium tablet reached the esophagogastric junction, a significant delay was documented in passage of the tablet through the esophagogastric junction. No constricting or obstructing lesions were demonstrated. No intraluminal filling defects. No ulcerations. No gastroesophageal reflux was identified. No hiatal hernia was demonstrated. RAD/Esophagus Dual Contrast IMPRESSION: Delayed passage of the barium tablet through the esophagogastric junction. No evidence of recurrent hiatal hernia. No gastroesophageal reflux was demonstrated on this study. Reading Location: [facility] CC: Dr. Radha Agee MD; Dr. Hermelindo Presley MD Client Service Administrator: Signed Normal [facility] Progress Noteon 06-10-2024 Progress Note [facility] AT [address] [address] Discharge Notification Patient Name: Rg Kelley : 1990 Today's Date: 06/10/2024 Patient has not been seen since 04/07/24. The patient will be discharged at this time due to inactivity. The patient has not been seen for outpatient therapy in 30+ days and has not made contact to reschedule. The patient will require new referral/evaluation to resume therapy in the future. The patient will be discharged at this time. Please refer to initial evaluation or re-assessment for last goals/objective measures assessment and progress report. Thank you for this referral. For any questions on this patient?s course of therapy, please call the clinic for clarification. Sharda Lino, PT [facility] 36on 06-04-2024 36 Rx sent for another diflucan prescription. Can take one pill and see if symptoms resolve and if not can take the other dose 3d later. [facility] Surgery Visit Reporton 06-04 Surgery Visit Report [facility] [address] [place] [address]. [address] [place] [address] OFFICE VISIT Date of Service: 06/04/24 MR#: [id number] Acct: [id number] Name: GR KELLEY Rep #: [id number] : 1990 Provider: JESUS MANUEL mccray Age/Sex: 33/F Location: [facility] Status: Signed Intake Vital Signs 05/23/24 14:03 Height 5 ft 8 in Intake Visit Reasons: S/P HIATAL HERNIA 3-7 Chief Complaint: s/p hiatal hernia 3/7/fundoplication Is patient in pain?: No Allergies adhesive Allergy (Severe, Verified 06/04/24 13:35) Hives latex Allergy (Severe, Verified 06/04/24 13:35) Hives soy Allergy (Severe, Verified 06/04/24 13:35) Anaphylaxis apricot Allergy (Intermediate, Verified 06/04/24 13:35) Anaphylaxis phenazopyridine (From Pyridium) Allergy (Mild, Verified 06/04/24 13:35) hives silver sulfadiazine (From Silvadene) Allergy (Mild, Verified 06/04/24 13:35) Hives Sulfa (Sulfonamide Antibiotics) Allergy (Mild, Verified 06/04/24 13:35) Hives azithromycin Allergy (Verified 06/04/24 13:35) Hives nitrofurantoin Allergy (Verified 06/04/24 13:35) Hives tetracycline Allergy (Verified 06/04/24 13:35) Hives Medications ???Medication ???Instructions ???Recorded ???Confirmed ???Type pantoprazole 40 mg tablet,delayed 40 mg PO QDAY #60 tabs 02/27/24 0 06/04/24 Rx release Held on 05/24/24. Instructions: Resume on 06/07/24. BEET ROOT 1 cap PO DAILY 04/22/24 06/04/24 H istory Held on 05/24/24. Instructions: Resume on 05/26/24. CLORAPHIL 1 cap PO DAILY 04/22/24 06/04/24 H istory FEVER FEW 1 cap PO DAILY 04/22/24 06/04/24 H istory GOTUKOLA 1 cap PO DAILY 04/22/24 06/04/24 H istory Held on 05/24/24. Instructions: Resume on 05/30/24. Monitor for any nausea or stomach pains Lactobacillus acidophilus 250 500 mmu cells PO DAILY 04/22/24 History million cell capsule (Probiotic Acidophilus) MARSHMELLOW ROOT 1 cap PO DAILY 04/22/24 06/04/24 H istory boron 6 mg tablet 6 mg PO DAILY 04/22/24 06/04/24 Hi story ferrous sulfate 325 mg (65 mg 325 mg PO DAILY 04/22/24 06/04/24 History iron) tablet magnesium 250 mg tablet 250 mg PO DAILY 04/22/24 06/04/24 History zinc gluconate 50 mg tablet 50 mg PO DAILY 04/22/24 06/04/24 H istory adrenal complex PO 04/23/24 06/04/24 History berberine chloride 500 mg capsule 1,500 mg PO 04/23/24 06/04/24 His tory Held on 05/24/24. Instructions: Resume on 05/30/24. black currant seed oil .Route 04/23/24 06/04/24 History Held on 05/24/24. Instructions: Resume on 05/26/24. calcium acetate PO 04/23/24 06/04/24 History levomefolate 15 mg-algal oil 1 cap PO QDAY 04/23/24 06/04/24 Hi story 90.314 mg capsule (L-Methylfolate Forte) pyridoxine (vitamin B6) PO 04/23/24 06/04/24 History sunflower lecithin PO 04/23/24 06/04/24 History Held on 05/24/24. Instructions: Resume on 05/30/24. famotidine 20 mg tablet (Pepcid) 20 mg PO BID #60 tabs 05/28/24 Rx quercetin 500 mg capsule 1,000 mg PO DAILY 06/05/24 5 History Subjective Details: Patient is a 33 y/o F I am following s/p laparoscopic hiatal hernia repair with toupee fundoplication by Dr. rPesley on 05/23/24. Patient tolerated the procedure well. She notes POD #0 and #1, she shared with Dr. Presley that she had some nausea and dry heaving. Dr. Presley discharged patient on clear/full liquids to home as her symptoms had resolved. She notes tolerating the current she is doing. She notes a decrease of 17 pounds in her weight. She notes a minimal amount of pain in the left upper quadrant near the rib cage. She notes since surgery she has had an increase in her reflux symptoms. She notes adding Pepcid to her Protonix regimen. She denies any difficulty in swallowing. She notes an increase in gas production. She notes taking a new supplement Quercetin. Objective Details: Abdomen- soft, incisions c/d/i. No erythema or infection noted. Coding Level of Care Code Global Post Op Diagnoses S/P laparoscopic fundoplication Z98.890 [facility] Medical History Easy bruising Blackout Asthma Interstitial cystitis Migraine headache History of hiatal hernia Shortness of breath on exertion History of echocardiogram GERD (gastroesophageal reflux disease) Disease of intestine, unspecified Colonic thickening Abnormal finding on MRI of brain Depression Anxiety Low iron Non-smoker Family history of colon cancer in father Thrombosed hemorrhoids Anemia PTSD (post-traumatic stress disorder) MTHFR mutation Surgical History (Updated 06/04/24 @ 13:37 by James Thornton) S/P laparoscopic fundoplication History of esophagogastroduodenosc opy (EGD) History of C-sectio (more content not included)... Normal [facility] 36on 06-02-2024 36 S: patient calling C AC d/t vaginal itching B: Symptoms started A: patient seen in office on 05/27 was given 2 doses of diflucan for yeast. Has taken both doses, last dose was on Sunday. Patient states symptoms have improved but still has discharge with itching. Patient is asking what to do next. Allergies and pharmay verified. R: message to physician please advise. Patient advised to call back with worsening of symptoms, concern or questions. Patient verbalized understanding. Reason for Disposition ? Symptoms of a yeast infection' (i.e., itchy, white discharge, not bad smelling) and not improved > 3 days following Care Advice Protocols used: Vaginal [facility] 05-28-2024 36 Pt calling to state the pharmacy does not have Rx. Called pharmacy and they states the fax was down yesterday Gave verbal for the fluconazole (Diflucan) 150 MG tablet per protocol. Pt instructed to greens picker Rx [facility] 36on 05-27-2024 36 S: Patient called [facility] clinical access center with complaint of urine symptoms B: Urgency and frequency with urination started a few days ago A: Urgency and frequency with urination , she also has a thick white odorless vaginal discharge. She denies abdominal pain, flank pain and fever. She is drinking water R: Appointment scheduled today at the [place] office. Patient instructed to call back with worsening symptoms, concerns or questions. Reason for Disposition Urinating more frequently than usual (i.e., frequency) OR new-onset of the feeling of an urgent need to urinate (i.e., urgency) Protocols used: Urinary [facility]iton 05-27-2024 Follow-up visit [id number] Liang Kelley 1990 F Date Provider Department Center 05/27/2024 [id number] NAVARRO [facility] Family History Problem Relation Age of Onset No Known Problems Paternal Grandfather No Known Problems Paternal Grandmother No Known Problems Maternal Grandmother No Known Problems Maternal Grandfather Cancer Father Colon cancer Father 40 Other Father Comments: crohns Other Mother Comments: migraines Celiac disease Mother High Blood Pressure Brother No Known Problems Brother No Known Problems Sister No Known Problems Sister No Known Problems Sister Breast cancer Other Comments: maternal great aunt Ovarian cancer Other Uterine cancer Neg Hx Family Status - Relation Status Age at Paternal Grandfather Alive Paternal Grandmother Alive Maternal Grandmother Alive Maternal Grandfather Alive Father Alive Mother Alive Brother Alive Brother Alive Sister Alive Sister Alive Sister Alive Other Neg Hx Level of Service:39590 [facility] OFFICE/OUTPATIENT ESTABLISHED MOD MDM 30 MIN Reason for Visit and Comments: Urinary Frequency [114642] - Vaginal discharge Surgery sunday Hiatal hernia Normal [facility] Progress Noteon 05-27-2024 Progress Note HPI: Here for a few days history of vulvar irritation and some white discharge. Recent surgery but no abx. Had urinary catheter, has some dysuria. REVIEW OF SYSTEMS: Gen: denies weight loss, fatigue, fevers/chills : see HPI PHYSICAL EXAM: Vitals: 05/27/24 1207 BP: 112/78 PHYSICAL EXAM: Gen: normal appearance, NAD Neuro: AAOx3 Psych: normal affect Abd: soft, NT, ND, no masses palpated External genitalia: normal, no lesions, no skin discoloration, normal introitus Urethral meatus: normal, no diverticulum or irritation present Vagina: normal, no lesions Ivori was seen today for urinary frequency. Diagnoses and all orders for this visit: Vulvar irritation (Primary) - Sureswab(R) Advanced Vaginitis Plus, TMA ([facility]) Urinary frequency - POCT urinalysis dipstick manually resulted - Urine culture Other orders - fluconazole (Diflucan) 150 MG tablet; Take 1 tablet (150 mg) by mouth Every 3 days for 2 doses. PLAN: -plan to tx for suspected yeast infection -UA reviewed, will send urine culture -sureswab sent - yeast, BV, trich, GC/CT Normal [facility] Urinalysis macro (dipstick) panel (U)on 05-27-2024 Bilirubin, UA Small [facility] Blood, UA Negative [facility] Glucose, UA Negative [facility] Interpretation and review of laboratory results Abnormal [facility] Ketones, POC (mg/dL) 160 mg/dL [facility] Leukocytes, UA Trace [facility] Nitrite, UA Negative [facility] pH, UA 6.0 [facility] Protein, UA 100 [facility] Spec Grav, UA 1.030 [facility] Urobilinogen, UA 0.2 [facility] Discharge Instructionon 03-0 Discharge Instruction [facility] Medical Records Department [address] [place] [address] Instructions for Home/Discharge Instructions 05/24/24 1506 MR#: [id number] Acct: [id number] Name: RG KELLEY Rep #: [id number] : 1990 33 From: Hermelindo Presley MD PCP: Dr. Radha Agee MD Status:ADM ROOSEVELT Discharge Instructions Diet Discharge Diet: - (Full liquid diet x 1 week followed by soft diet (as prescribed)) DC O2, CPAP, BIPAP needs Home O2 Discharge instructions: No Dressing / Incision May shower in (days): 2 May resume sexual activity in: 4-6 weeks Ice area for (Minutes): 20 Lifting Restrictions: No lifting greater than 10 pounds x 5 weeks postop Dressing / Incision Call your doctor if your incision/area has: Sudden Increased Bleeding, Increased Pain/ Swelling, Increased Redness, Foul Smelling Discharge and Swelling at the incision site Call your doctor if you observe: Fever of 101 or Higher, Inability to have a bowel movement, Uncontrolled pain and - (nausea or vomiting) Remove Dressing in: 1 day Cleanse incision/area with: Soap Water Follow Up Care Please Follow Up With: Hermelindo Presley MD When: 10 to 14 days postop Test Results: Test results from this visit will be discussed in further detail at your follow-up appointment, if applicable. Discharge Plan Admission Admit Date/Time: 05/23/24 12:17 Primary Reason for Your Visit: antireflux surgery Attending Provider: Hermelindo Presley Primary Care Provider: Radha Agee Consulting Providers: Pipe Fuentes Discharge Orders/Prescriptions Prescriptions: New oxycodone 20 mg/mL Concentrate 5 mg PO Q6H PRN (Reason: PAIN 6-10) 3 Days Qty: 30 0RF Continued adrenal complex PO calcium acetate PO levomefolate-algal oil [L-Methylfolate Forte] 15-90.314 mg capsule 1 cap PO QDAY pyridoxine (vitamin B6) PO bupropion HCl 150 mg tablet extended release 24 hr 150 mg PO DAILY ferrous sulfate 325 mg (65 mg iron) tablet 325 mg PO DAILY boron 6 mg tablet 6 mg PO DAILY zinc gluconate 50 mg tablet 50 mg PO DAILY magnesium 250 mg tablet 250 mg PO DAILY Probiotic Acidophilus 250 million cell capsule 500 mmu cells PO DAILY CLORAPHIL 1 cap PO DAILY MARSHMELLOW ROOT 1 cap PO DAILY FEVER FEW 1 cap PO DAILY Held berberine chloride 500 mg capsule 1,500 mg PO Hold Instructions: Resume on 05/30/24. black currant seed oil 320 mg gel .Route Hold Instructions: Resume on 05/26/24. Rx Instructions: one soft gel orally daily sunflower lecithin 1,200 mg PO Hold Instructions: Resume on 05/30/24. BEET ROOT 1 cap PO DAILY Hold Instructions: Resume on 05/26/24. GOTUKOLA 1 cap PO DAILY Hold Instructions: Resume on 05/30/24. Monitor for any nausea or stomach pains pantoprazole 40 mg tablet,delayed release (DR/EC) 40 mg PO QDAY Qty: 60 2RF Hold Instructions: Resume on 06/07/24. Referrals / Follow Up: Radha Agee MD [Primary Care Provider] - Disposition Disposition (needs filled in before D/C Order can be placed): Home, Self Care 05/24/24 1521 Hermelindo Presley MD CC: Dr. Radha Agee MD; Dr. Pipe Fuentes MD Signed [facility] MR/POSTOP.[facility] 05-23-2024 MR/POSTOP.[facility] Medical Records Department [address] [place] [address] Anesthesia Postop Eval I 05/23/24 1131 MR#: [id number] Acct: [id number] Name: RG KELLEY Rep #: [id number] : 1990 33 From: Jony Parra CRNA PCP: Dr. Radha Agee MD Status:REG SDC Y Race: [facility] Location: [facility] NN402-4 Anesthesia: Postop Eval I Current Vital Signs Temperature: 97.9 F Pulse Rate: 99 Blood Pressure: 113/70 Respiratory Rate: 16 Pulse Ox: 96 Oxygen Delivery Method: Room Air Assessment Airway patent: Yes Spontaneous unlabored respirations: Yes Mental status: Asleep nausea: No Vomiting: No Anesthesia Complication: No Fluid Hydration Crystalloid volume administer (ml): 1,900 Total IV fluid infused: 1,900 Progress Note Anesthesia document: Postop Eval 1 completed: Yes 05/23/24 1132 Date Jony Parra DEVELOPMENT SPECIALIST Cosigner Signature: Date CC: Signed Normal [facility] [id number] 05-23-2024 [facility] Medical Records Department [address] [place] [address] Anesthesia Postop Eval II 05/23/24 1154 MR#: [id number] Acct: [id number] Name: RG KELLEY Rep #: [id number] : 1990 33 From: Ralph Underwood MD PCP: Dr. Radha Agee MD Status:REG SDC Y Race: [facility] Location: [place] [address] Anesthesia Postop Eval I Sum Postop Eval Completion status Anesthesia document: Postop Eval 1 completed: Yes Anesthesia Postop Eval I Summary Anesthesia Postop Eval I Summary: Anesthesia Postop Eval I: Assessment Summary Airway patent Yes 05/23/24 11:32 DEVELOPMENT [email or web address] Spontaneous unlabored Yes 05/23/24 11:32 DEVELOPMENT [email or web address].[email or web address] respirations Mental status Asleep 05/23/24 11:32 DEVELOPMENT [email or web address] nausea No 05/23/24 11:32 DEVELOPMENT [email or web address].[email or web address] Vomiting No 05/23/24 11:32 DEVELOPMENT [email or web address].[email or web address] Anesthesia Postop Eval I: Fluid Summary Crystalloid volume administer 1,900 05/23/24 11:32 DEVELOPMENT [email or web address].[email or web address] (ml) Colloids volume administered ( ml) Blood Product volume administered (ml) Total IV fluid infused 1,900 05/23/24 11:32 DEVELOPMENT [email or web address].[email or web address] Anesthesia Postop Eval I: Summary Notes Anesthesia Complication No 05/23/24 11:32 DEVELOPMENT [email or web address].[email or web address] Anesthesia Complication Comment: Post-operative progress note Anesthesia: Postop Eval II Evaluation Mental status: Awake Pain Level: 0 nausea: No Vomiting: No 05/23/24 1154 Date Ralph Olivares Signature: Date CC: Signed Normal [facility] Operative Reporton 5 Operative Report [facility] Medical Records Department [address] [place] [address] Operative Report 05/23/24 1119 MR#: [id number] Acct: [id number] Name: RG KELLEY Rep #: [id number] : 1990 33 From: Hermelindo Presley MD PCP: Dr. Radha Agee MD Status:ADM ROOSEVELT Location: [place] [address] Operative Report (Standard) Operative Information Date of Procedure: 05/23/24 Pre-Operative Diagnosis: 1. Symptomatic hiatal hernia with gastroesophageal reflux disease 2. Blackburn's esophagus Post-Operative Diagnosis: Same Surgery/Procedure Performed: Laparoscopic hiatal hernia repair with toupee fundoplication lunch cook: Yes [employer] Consultant: John Hanks Tasks completed by registered nurse first assistant: Opening, Trocar and Retracting Type of Anesthesia: General/Supplemental RN Documented Start/Stop Times: Operation Date: 05/23/24 07:30 Case Time Into Pre-Op 05/23/24 06:14 Out of Pre-Op 05/23/24 07:29 Anesthesia Start 05/23/24 07:30 Into Room 05/23/24 07:30 Procedure Start 05/23/24 08:20 Procedure End 05/23/24 11:17 Anesthesia End 05/23/24 11:25 Out of Room 05/23/24 11:25 Into Recovery 05/23/24 11:27 Out of Recovery 05/23/24 13:38 Procedure Start Time: 08:20 Procedure Stop Time: 11:17 Select all DRAINS/GRAFTS/IMPLANTS that apply: None Estimated Blood Loss: 15 Specimen collected: No Description of surgery: After appropriate identification in the holding, patient was brought to the operating room. There she was positioned supine on the operating room table. She underwent induction with general endotracheal anesthetic. She was positioned in a lithotomy position using yellowfin leg holders and a positioning foam pad. Care was taken to avoid pressure points. A Duque catheter was then placed with sterile technique. Patient's abdomen was prepped and draped in usual sterile fashion and a formal timeout was conducted to confirm the patient and procedure. Procedure was begun with a Veress entry at Titus's point followed by an optical trocar insertion once our set pressure of 15 mmHg was reached. Laparoscopic visualization revealed no inadvertent injury from this entry. Three other trocars were placed in the left supraumbilical paramedian position, the right upper quadrant, and the left upper quadrant laterally all under laparoscopic visualization. Lastly a Sena liver retractor was placed in the epigastrium also under laparoscopic visualization. This retractor was manipulated to elevate the left lobe of the liver and provide visualization to the diaphragmatic hiatus. Dissection of the hernia sac was begun on the side of the right ashu using a laparoscopic Enseal device and carried clockwise around the hiatus. We encountered some scar tissue along the phrenoesophageal ligament left ashu and had not yet identified the anterior vagus nerve so we elected to perform a bottom-up approach on the left by incising the gastrosplenic ligament and carefully dividing the short gastric vessels all the way up to the left ashu. Great care was taken to avoid undue traction on the splenic capsule. Both crura were clearly established and we then performed some limited mediastinal dissection to provide greater esophageal excursion while taking care to identify the anterior and posterior vagi as well as the parietal pleura. Once we had circumferential dissection, a retroesophageal window was made with blunt dissection and 1/2 inch [place] drain was placed about this opening to provide further cephalad traction on the stomach. With this traction we identified a few remaining hernia sac adhesions which were taken down with the use of the LigaSure. Next I performed cruralplasty with interrupted 0 Ethibond suture that was placed approximately at 1 cm intervals for a total of 3 stitches. With this approximation, there was still an approximately 1 cm gap between the posterior crural closure and the posterior esophagus. After this approximation, a partial, posterior (toupet type) fundal wrap was performed. To ensure the wrap was not overly tight, anesthesia was asked to pass a 54 Greenlandic bougie through the esophagus into the stomach under direct laparoscopic visualization . The fundus of the stomach was grasped and a shoeshine maneuver was performed. Then the fundus was secured to the right ashu using a 2-0 Ethibond suture. The fundal wrap was completed in an interrupted fashion by first tacking the fundus of the stomach to the right anterior aspect of the esophagus using 2 Ethibond suture for a total of 3 sutures. This was followed by tacking the left side of the fundus to the left anterior esophagus, again with 3 different 2-0 Ethibond sutures. Great care was taken to avoid any injury to the left???positioned anterior vagus nerve. Lastly, a endoscopic exam was performed of this wrap and we confirmed that the wrap allowed easy passage of t (more content not included)... Normal [facility] ,Urineon 05-23-2024 Beta HCG ( test) Ql (U) Negative Normal [facility] Comment on above: Result Comment: Very dilute urine specimens, as indicated by a low specific gravity, may not contain signs and displays sales representative levels of hCG. If is still suspected, a first morning urine specimen should be collected 48 hours later and tested. Performed By: #### L 400.7600 ####[facility] [address] [place], [address] Internal Medicine Office Vis jonna 05-14-2024 Internal Medicine Office Visit [facility] [place] [address] [place] [address] OFFICE VISIT Date of Service: 05/14/24 MR#: [id number] Acct: [id number] Name: RG KELLEY Rep #: [id number] : 1990 Provider: HELEN Mercer Age/Sex: 33/F Location[place] [facility] [place] Status: Signed Intake Vital Signs 04/23/24 08:15 Height 5 ft 8 in Weight: 193 lb BMI 29.3 BP 115/77 Blood Pressure Location Rt brachial Position Sitting Respiration 18 Pulse 65 Pulse Source Monitor Temp 97.3 F L Temp Source Temporal Pulse Oximetry (%) 99 Oxygen Delivery Method room air Intake Visit Reasons: CHEST PAIN/FU ON EKG Chief Complaint: 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 Accompanied by: Self Is patient in pain?: Yes (3 pain is center below breast bone towards the left) Allergies adhesive Allergy (Severe, Verified 05/14/24 10:09) Hives latex Allergy (Severe, Verified 05/14/24 10:09) Hives soy Allergy (Severe, Verified 05/14/24 10:09) Anaphylaxis phenazopyridine (From Pyridium) Allergy (Mild, Verified 05/14/24 10:09) hives silver sulfadiazine (From Silvadene) Allergy (Mild, Verified 05/14/24 10:09) Hives Sulfa (Sulfonamide Antibiotics) Allergy (Mild, Verified 05/14/24 10:09) Hives azithromycin Allergy (Verified 05/14/24 10:09) Hives nitrofurantoin Allergy (Verified 05/14/24 10:09) Hives tetracycline Allergy (Verified 05/14/24 10:09) Hives Medications ???Medication ???Instructions ???Recorded ???Confirmed ???Type pantoprazole 40 mg tablet,delayed 40 mg PO QDAY #60 tabs 02/27/24 0 05/14/24 Rx release BEET ROOT 1 cap PO DAILY 04/22/24 05/14/24 H istory CLORAPHIL 1 cap PO DAILY 04/22/24 05/14/24 H istory FEVER FEW 1 cap PO DAILY 04/22/24 05/14/24 H istory GOTUKOLA 1 cap PO DAILY 04/22/24 05/14/24 H istory Lactobacillus acidophilus 250 500 mmu cells PO DAILY 04/22/24 History million cell capsule (Probiotic Acidophilus) MARSHMELLOW ROOT 1 cap PO DAILY 04/22/24 05/14/24 H istory boron 6 mg tablet 6 mg PO DAILY 04/22/24 05/14/24 Hi story bupropion HCl 150 mg 24 hr tablet, 150 mg PO DAILY 04/22/24 5 History extended release ferrous sulfate 325 mg (65 mg 325 mg PO DAILY 04/22/24 05/14/24 History iron) tablet magnesium 250 mg tablet 250 mg PO DAILY 04/22/24 05/14/24 History zinc gluconate 50 mg tablet 50 mg PO DAILY 04/22/24 05/14/24 H istory adrenal complex PO 04/23/24 05/14/24 History berberine chloride 500 mg capsule 1,500 mg PO 04/23/24 05/14/24 His tory black currant seed oil .Route 04/23/24 05/14/24 History calcium acetate PO 04/23/24 05/14/24 History levomefolate 15 mg-algal oil 1 cap PO QDAY 04/23/24 05/14/24 Hi story 90.314 mg capsule (L-Methylfolate Forte) pyridoxine (vitamin B6) PO 04/23/24 05/14/24 History sunflower lecithin PO 04/23/24 05/14/24 History Patient : No Have you fallen in the past year?: No PFSH Medical History Easy bruising Blackout Asthma Interstitial cystitis Migraine headache History of hiatal hernia Shortness of breath on exertion History of echocardiogram GERD (gastroesophageal reflux disease) Disease of intestine, unspecified Colonic thickening Abnormal finding on MRI of brain Depression Anxiety Low iron Non-smoker Family history of colon cancer in father Thrombosed hemorrhoids Anemia PTSD (post-traumatic stress disorder) MTHFR mutation Surgical History History of esophagogastroduodenosc opy (EGD) History of H/O cystoscopy Hx of colonoscopy S/P wrist surgery Family History Mother Aortic valve, bicuspid PTSD (post-traumatic stress disorder) Anemia Depression Ovarian cyst Father Crohn's disease Schizophrenia Aunt Schizophrenia Grandfather Cancer melanoma CVA (cerebral vascular accident) Social History household members: children housing: house current occupational status: unemployed Smoking Status: Never smoker Electronic Cigarette Use: not used alcohol intake: never substance use type: does not use what type of physical activity do you participate in: none seatbelt use: always do you feel safe at home: Yes HPI HPI Chief Complaint: CHEST PAIN Details: RG KELLEY, is a 33 F who presents to the office today for chest pains. Patient states that she has had pains on and off for the past several weeks. She states that the pains are sharp pains that last seconds to minutes. they are located on the left side of the anterior chest wall just under the breast and have no radiation to surrounding areas. She has no pains in the arm, jaw, or ot (more content not included)... Normal [facility] CNOVon 05-12-2024 [facility] Office Visit (ARESCL ) RG KELLEY ([id number]) 1990 F Date Time Provider Department 05/12/24 9:00 AM SHEILA SWARTZ ARESJ During your visit today, we recorded the following information about you: Sheila Swartz DO 05/12/2024 10:45 AM Attested Sensitive Note Attestation signed by Darnell Blount MD at 05/12/2024 4:12 PM Attending Note I evaluated the patient [...] medications, providing supportive psychotherapy and coordinating care. Darnell Blount MD Adult and Geriatric Psychiatry [facility] , [facility] BE[facility] RESIDENT [facility]INIC PROGRESS NOTE PATIENT: Rg Kelley MRD: [id number] DATE: May 12, 2024 IDENTIFYING INFORMATION: Rg is a 33 year old female with a history of MDD, PTSD, and insomnia who previously established and followed with Dr. Kelsey before being transferred to [place], Dr. Swartz. CHIEF COMPLAINT: PTSD, depression SUBJECTIVE: Plan from last visit (04/03/24): - stop mirtazapine 7.5mg QHS - start BUPROPION XL 150 MG - continue prazosin 3mg QHS for PTSD-related nightmares, we then increased it to 4mg via telephone - continue with therapist, continue to encourage EMDR Nightmares: decreased down to once/week, and they are less violent, still weird. Weird dreams are every night. Sleep: 4-6 nonconsecutive hrs. Patient notes constant hypervigilance, especially when she leaves the home, and its worse when she leaves the home with her children. She feels like a prisoner of her mind. Patent notes the bupropion is helping with the suicidal thoughts, but everything else is still at the same level. Also helps take the edge off the hypervigilance. She discussed her expectations of the medication, becoming tearful in doing so. She does not expect them to help more than to just cut the edge. I essentially agreed with her. She said she stated this so that I do not feel like I am failing. - We did not discuss this more in depth due to time (pt being 12 min late), but she is hurting. And she has gone through a lot of incredibly painful experiences, so she was essentially saying it took a lot to get here, medication is not going to fix this. She expresses some doubt about EMDR because the way her therapist explained it to her, she states she has already tried to do that. (Reframe things in a positive light). We then discussed the delivery of words can tremendously change how we receive them. For example, mom complimenting your appearance vs a boy at school who we have a crush on, etc So at least EMDR has a chance to help. EMDR: her surgery was cancelled because the surgeon was sick, she is waiting for it to be rescheduled so she can schedule with her therapist. Her therapist wanted to wait until after the surgery to start EMDR so they can do the sessions in person, and consistently, without having to take a break. Medication side effects: denies Suicidal/Homicidal Thoughts/Plans: denies any suicidal thoughts. Substance Use History: below reviewed and updated today Denies any substance use history VITAL SIGNS: LMP 09/27/2021 (Approximate) LAB DATA: reviewed, unremarkable MENTAL STATUS EXAMINATION: Appearance: appears stated age, ,Female, well developed, well nourished, normal clothing, grooming is Within Normal Limits Activity: Normal , Steady gait Behavior: Cooperative, Good eye contact Speech: spontaneous , Normal rate, Normal volume, Clear Mood: hypervigilant Affect: mood congruent Thought Process: linear, mostly logical, goal directed Thought Content: No suicidal ideation, intent or plan., No homicidal ideation, intent or plan., No delusions or hallucinations noted or endorsed Cognition: Orientation: Person, Place, Time and Situation Attention: Intact Concentration: Intact Language: Intact naming, Intact repetition Estimated Intelligence: Average Memory: Intact recent memory, Intact remote memory Abstraction: Intact Insight: good Judgement: good RATING SCALES: PHQ-9 Score 05/12/2024 19 04/03/2024 22 02/25/2024 17 01/21/2024 21 01/08/2024 20 05/08/2023 23 12/08/2022 24 11/29/2022 24 09/27/2022 24 24 24 07/07/2022 22 (0-4) minimal depression, (5-9) mild depression, (10-14) moderate depression (more content not included)... Normal [facility] Krissy 04-29-2024 WILIAN Telephone ([facility]) ALLIERG ([id number]) 1990 F Date Time Provider Department 04/29/24 SHEILA SWARTZ During your visit today, we recorded the following information about you: Sheila Swartz DO 04/29/2024 2:30 PM Signed I called patient to follow up on her [employer] message she sent about 20 days ago. She asked if she could go up on the prazosin, and instead of responding directly to that, I asked another question. I called her today to apologize for the delay in answering her question, but because she is having multiple nightmares every night, we agreed to increase the prazosin to 4mg QHS. I asked her to reach out to me via [employer] in 1 week to update me with any changes/response to the dose increase. She expressed understanding. Allergies As of Date: 04/29/2024 Noted Allergy Reaction ERYTHROMYCIN 12/27/2018 4 - Hives 16 - Unknown LATEX 09/30/2020 2 - Rash NITROFURANTOIN MONOHYD/M-CRYST 12/27/2018 4 - Hives PHENAZOPYRIDINE 09/30/2020 4 - Hives SILVER SULFADIAZINE 09/30/2020 4 - Hives SOY 04/10/2022 10 - Anaphylaxis TETRACYCLINE HCL 12/27/2018 16 - Unknown Date Reviewed: 04/03/2024 Reviewed by: Sheila Swartz DO - Fully Assessed Visit Diagnoses:PTSD (post-traumatic stress disorder) [F43.10] Nightmares associated with chronic post-traumatic stress disorder [F51.5, F43.12] Order(s):prazosin (MINIPRESS) 1 mg capTake 4 capsules by mouth daily at bedtime.Disp: 120 capsuleRfl: 1 Prescriptions as of 04/29/2024 - prazosin (MINIPRESS) 1 mg cap Take 4 capsules by mouth daily at bedtime. - buPROPion XL (WELLBUTRIN XL) 150 mg 24 hr tablet Take 1 tablet by mouth once daily. - L.acidophilus-L.rhamnos us (FLORAJEN WOMEN) 15 billion cell capsule Take [...] by mouth. Problem List As Of Date 04/29/2024 Noted Resolved with care elsewhere, antepar*09/30/2020 01/30/2021 [...] 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] 01/08/2024 Prescriptions ordered this encounter Disp Refills Start End PRAZOSIN 1 MG CAPSULE 120 * 1 04/29/2024 08/27/2024 Class: Med Update Route: ORAL Sig: Take 4 capsules by mouth daily at bedtime. Medications Discontinued During This Encounter Prescriptions - prazosin (MINIPRESS) 1 mg cap (Discontinued) Take 3 capsules by mouth daily at bedtime. Encounter Status:Closed by SHEILA SWARTZ on 04/29/24 [facility] MR/PAT.Haylee 04-24-2024 MR/PAT.CON [facility] Medical Records Department [address] [place] [address] PAT - Anesthesia 04/24/24 1213 MR#: [id number] Acct: [id number] Name: RG KELLEY Rep #: [id number] : 1990 33 From: Pipe Fuentes MD PCP: Dr. 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 When Was Last Pacemaker Check QUESTION #4 FULL TEXT: You/Your Family Experience fever (hyperthermia) with Anesthesia Last Oral Intake Last Oral intake: Last Oral Intake NPO since Meds taken in AM with sips of water? Meds patient instructed to take am of surgery PONV PONV - grades 9 thru 12 visiting teacher: PONV - grades 9 thru 12 visiting teacher Female Yes 04/22/24 14:48 HX of Motion Sickness Yes 04/22/24 14:48 HX of N/V After Surgery No 04/22/24 14:48 Non-Smoker Yes 04/22/24 14:48 Duration of Surgery greater Yes 04/22/24 14:48 than 60 minutes Number of Risk Factors 4 04/22/24 14:48 PONV Score Severe Risk 04/22/24 14:48 Height Weight Height Weight: Anesthesia: Height Weight Height 5 ft 8 in 03/17/24 09:54 Respiratory Assessment Respiratory Assessment - grades 9 thru 12 visiting teacher: Respiratory Tract Infection Hx - grades 9 thru 12 visiting teacher Hx Respiratory Tract Infection No 04/22/24 14:48 STOP Sleep Apnea STOP Sleep Apnea - grades 9 thru 12 visiting teacher: STOP Sleep Apnea - grades 9 thru 12 visiting teacher Hx Hypertension No 04/22/24 14:48 Hx Sleep Apnea No 04/22/24 14:48 CPAP BIPAP Do you snore loudly (louder No 04/22/24 14:48 than talking or can be heard Do you often feel tired/ Yes 04/22/24 14:48 fatigued/ sleepy during daytime? Has anyone observed you stop No 04/22/24 14:48 breathing during sleep? STOP Results Negative 04/22/24 14:48 QUESTION #5 FULL TEXT : Do you snore loudly (louder than talking or can be heard through closed doors)? Tobacco Use History Tobacco Use History - grades 9 thru 12 visiting teacher: Tobacco Use History - grades 9 thru 12 visiting teacher Tobacco Use Smoking Status Never smoker 04/22/24 14:48 Hx Tobacco Use No 04/22/24 14:48 Years Smoking Packs Smoked per Day Smoking Cessation Date was within the last 15 years Hx Smoking Cessation Date Hx Smoking Cessation Counseling Hematologic Medial History Hematologic Hx - grades 9 thru 12 visiting teacher: Hematologic Medical Hx - order manager Hx of Blood Transfusion No 04/22/24 14:48 Hx of Transfusion in last 3 No 04/22/24 14:48 Months Date of Last Transfusion (if within last 3 months) Ever experience any problems No 04/22/24 14:48 with transfusion(s)? Specify any problems Hx of Preganancy in last 3 No 04/22/24 14:48 Months Nurse Filling Out Transfusion DSCHRIBER 04/22/24 14:48 Questions: Date: 04/22/24 04/22/24 14:48 Time: 14:50 04/22/24 14:48 Patient unable to answer at this time (ie. confused, unrespo /Reproduction History /Reproductive History - grades 9 thru 12 visiting teacher: /Reproductive Hx- grades 9 thru 12 visiting teacher Hx Now No 04/22/24 14:48 Gestational Age (in weeks): EDC: Hx Hx Para Hx Section SAB No 04/22/24 14:48 [facility] Medical History Easy bruising Blackout Asthma Interstitial cystitis Migraine headache History of hiatal hernia Shortness of breath on exertion History of echocardiogram GERD (gastroesophageal reflux disease) Disease of intestine, unspecified Colonic thickening Abnormal finding on MRI of brain Depression Anxiety Low iron Non-smoker Family history of colon cancer in father Thrombosed hemorrhoids Anemia PTSD (post-traumatic stress disorder) MTHFR mutation Home Medications ???Medication ???Instructions ???Recorded ???Last Taken ???Type prazosin 1 mg capsule 3 mg PO QHS 01/14/24 Unknown Histo ry pantoprazole 40 mg tablet,delayed 40 mg PO QDAY #60 tabs 02/27/24 U nknown Rx release BEET ROOT 1 cap PO DAILY 04/22/24 Unknown Hi story CLORAPHIL 1 cap PO DAILY 04/22/24 Unknown Hi story FEVER FEW 1 cap PO DAILY 04/22/24 Unknown Hi story (more content not included)... Normal [facility] 12 Lead EKGon 04-23-2024 12 Lead EKG [facility] Cardiovascular Services [address] [place] [address] 12 Lead EKG 04/23/24 0906 MR#: [id number] Acct: [id number] Name: RG KELLEY Rep #: [id number] : 1990 33 From: Joshua Gilmore MD Attending Dr: Dr. Hermelindo Presley MD Status: PRE [facility] [place] Ordering Dr: Pipe Fuentes MD Date: 04/23/24 [place] [facility] [place] Sex: F UTD Admitted: Test Reason : PRE OP Blood Pressure : */* mmHG Vent. Rate : 84 BPM Atrial Rate : 84 BPM P-R Int : 150 ms QRS Dur : 90 ms QT Int : 366 ms P-R-T Axes : 75 78 58 degrees QTcB Int : 432 ms Normal sinus rhythm Possible Left atrial enlargement Borderline ECG Confirmed by HSAN ADLER, JOSHUA ([id number]), assistant editor YUMI HALL ([id number]) on 04/23/2024 10:51:21 AM Referred By: Hermelindo Presley Confirmed By: JOSHUA GILMORE MD 04/23/24 1051 Date Joshua Gilmore MD CC: Dr. Radha Agee MD; Dr. Pipe Fuentes MD; Dr. Hermelindo Presley MD Signed Normal [facility] Basic Metabolic Profile (BMP )on 04-23-2024 BUN/CRE 12.6 RATIO Normal 10-20 [facility] Comment on above: Performed By: #### L 300.3900, L500.2500, L100.0500, L300.4310, L500.3400 #### [facility] [address] [place], [address] CA,Total 9.4 mg/dL Normal 8.5-10.1 [facility] Comment on above: Performed By: #### L 300.3900, L500.2500, L100.0500, L300.4310, L500.3400 #### [facility] [address] [place], [address] Chloride [Moles/Vol] 108 mmol/L High 98-[address] [facility] Comment on above: Performed By: #### L 300.3900, L500.2500, L100.0500, L300.4310, L500.3400 #### [facility] [address] [place], [address] CO2 [Moles/Vol] 24.0 mmol/L Normal 21.0-32.0 [facility] Comment on above: Performed By: #### L 300.3900, L500.2500, L100.0500, L300.4310, L500.3400 #### [facility] [address] [place], [address] Creatinine [Mass/Vol] 0.79 mg/dL Normal 0.55-1.02 [facility] Comment on above: Result Comment: The validity of the calculated GFR GFRAA in patients over 70 years has not been determined. Clinical correlation is essential. Performed By: #### L 300.3900, L500.2500, L100.0500, L300.4310, L500.3400 #### [facility] [address] [place], [address] EST GFR - AA 108 mL/min Normal >60 [facility] Comment on above: Result Comment: Afri can Bahraini GFR Calc Performed By: #### L 300.3900, L500.2500, L100.0500, L300.4310, L500.3400 #### [facility] [address] [place], [address] GAP 7 Normal 5-15 [facility] Comment on above: Performed By: #### L 300.3900, L500.2500, L100.0500, L300.4310, L500.3400 #### [facility] [address] [place], [address] GFR/1.73 sq M.predicted among non-blacks MDRD (S/P/Bld) [Vol rate/Area] 89 mL/min/{1.73_m2} Normal >60 [facility] Comment on above: Result Comment: Non- GFR Calc Performed By: #### L 300.3900, L500.2500, L100.0500, L300.4310, L500.3400 #### [facility] [address] [place], [address] Glucose [Mass/Vol] 85 mg/dL Normal 74-106 [facility] Comment on above: Performed By: #### L 300.3900, L500.2500, L100.0500, L300.4310, L500.3400 #### [facility] [address] [place], [address] Potassium [Moles/Vol] 3.9 mmol/L Normal 3.5-5.1 [facility] Comment on above: Performed By: #### L 300.3900, L500.2500, L100.0500, L300.4310, L500.3400 #### [facility] [address] [place], [address] Sodium [Moles/Vol] 140 mmol/L Normal 136-145 [facility] Comment on above: Performed By: #### L 300.3900, L500.2500, L100.0500, L300.4310, L500.3400 #### [facility] [address] [place], [address] Urea nitrogen [Mass/Vol] 10 mg/dL Normal 7-18 [facility] Comment on above: Performed By: #### L 300.3900, L500.2500, L100.0500, L300.4310, L500.3400 #### [facility] [address] [place], [address] CBC-Complete Blood Cnt No Di ffon 04-23-2024 Erythrocyte distribution width (RBC) [Ratio] 13.2 % Normal 11.6-14.6 [facility] Comment on above: Performed By: #### L 300.3900, L500.2500, L100.0500, L300.4310, L500.3400 #### [facility] [address] [place], [address] Hematocrit (Bld) [Volume fraction] 41.2 % Normal 37-47 [facility] Comment on above: Performed By: #### L 300.3900, L500.2500, L100.0500, L300.4310, L500.3400 #### [facility] [address] [place], [address] Hemoglobin (Bld) [Mass/Vol] 12.8 g/dL Normal 12.0-15.0 [facility] Comment on above: Performed By: #### L 300.3900, L500.2500, L100.0500, L300.4310, L500.3400 #### [facility] [address] [place], [address] MCH (RBC) [Entitic mass] 24.8 pg Low 27.0-32.0 [facility] Comment on above: Performed By: #### L 300.3900, L500.2500, L100.0500, L300.4310, L500.3400 #### [facility] [address] [place], [address] MCHC (RBC) [Mass/Vol] 31.1 g/dL Low 32-36 [facility] Comment on above: Performed By: #### L 300.3900, L500.2500, L100.0500, L300.4310, L500.3400 #### [facility] [address] [place], [address] MCV (RBC) [Entitic vol] 79.8 fL Low 81-99 [facility] Comment on above: Performed By: #### L 300.3900, L500.2500, L100.0500, L300.4310, L500.3400 #### [facility] [address] [place], [address] Platelet mean volume (Bld) [Entitic vol] 9.6 fL Normal 6.2-12.0 [facility] Comment on above: Performed By: #### L 300.3900, L500.2500, L100.0500, L300.4310, L500.3400 #### [facility] [address] [place], [address] Platelets (Bld) [#/Vol] 360 10*3/uL Normal 150-450 [facility] Comment on above: Performed By: #### L 300.3900, L500.2500, L100.0500, L300.4310, L500.3400 #### [facility] [address] [place], [address] RBC (Bld) [#/Vol] 5.16 10*6/uL Normal 4.2-5.4 [facility] Comment on above: Performed By: #### L 300.3900, L500.2500, L100.0500, L300.4310, L500.3400 #### [facility] [address] [place], [address] RDW SD 37.6 fl Normal 35.1-43.9 [facility] Comment on above: Performed By: #### L 300.3900, L500.2500, L100.0500, L300.4310, L500.3400 #### [facility] [address] [place], [address] WBC (Bld) [#/Vol] 6.8 10*3/uL Normal 4.4-11.0 [facility] Comment on above: Performed By: #### L 300.3900, L500.2500, L100.0500, L300.4310, L500.3400 #### [facility] [address] [place], [address] Liver Profileon 04-23-2024 Albumin [Mass/Vol] 4.1 g/dL Normal 3.2-5.0 [facility] Comment on above: Performed By: #### L 300.3900, L500.2500, L100.0500, L300.4310, L500.3400 #### [facility] [address] [place], [address] ALK P 65 U/L Normal 45-117 [facility] Comment on above: Performed By: #### L 300.3900, L500.2500, L100.0500, L300.4310, L500.3400 #### [facility] [address] [place], [address] ALT [Catalytic activity/Vol] 18 U/L Normal 13-56 [facility] Comment on above: Performed By: #### L 300.3900, L500.2500, L100.0500, L300.4310, L500.3400 #### [facility] [address] [place], [address] AST [Catalytic activity/Vol] 11 U/L Low 15-37 [facility] Comment on above: Performed By: #### L 300.3900, L500.2500, L100.0500, L300.4310, L500.3400 #### [facility] [address] [place], [address] Bilirubin [Mass/Vol] 0.40 mg/dL Normal 0.20-1.[address] [facility] Comment on above: Result Comment: For patients on eltrombopag therapy, use of Dimension [place] TBIL is not recommended. Performed By: #### L 300.3900, L500.2500, L100.0500, L300.4310, L500.3400 #### [facility] [address] [place], [address] Bilirubin.direct [Mass/Vol] 0.11 mg/dL Normal 0.00-0.30 [facility] Comment on above: Performed By: #### L 300.3900, L500.2500, L100.0500, L300.4310, L500.3400 #### [facility] [address] [place], [address] Globulin (S) [Mass/Vol] 4.1 g/dL Normal 2.2-4.2 [facility] Comment on above: Performed By: #### L 300.3900, L500.2500, L100.0500, L300.4310, L500.3400 #### [facility] [address] [place], [address] T PROT 8.2 g/dL Normal 6.4-8.2 [facility] Comment on above: Performed By: #### L 300.3900, L500.2500, L100.0500, L300.4310, L500.3400 #### [facility] [address] [place], [address] Partial Thromboplast Timeon 04-23-2024 aPTT Coag (Bld) [Time] 31.8 s Normal 24.1-36.2 [facility] Comment on above: Performed By: #### L 300.3900, L500.2500, L100.0500, L300.4310, L500.3400 #### [facility] [address] [place], [address] Prothrombin Time w/INRon INR Coag (PPP) [Relative time] 0.9 {INR} Normal [facility] Comment on above: Performed By: #### L 300.3900, L500.2500, L100.0500, L300.4310, L500.3400 #### [facility] [address] [place], [address] PT Coag (PPP) [Time] 12.7 s Normal 11.7-14.[address] [facility] Comment on above: Performed By: #### L 300.3900, L500.2500, L100.0500, L300.4310, L500.3400 #### [facility] [address] [place], [address] Surgery Visit Reporton 04-23 Surgery Visit Report [facility] [address] [place], [place] [address] OFFICE VISIT Date of Service: 04/23/24 MR#: [id number] Acct: [id number] Name: RG KELLEY Rep #: [id number] : 1990 Provider: Dr. Hermelindo hay MD Age/Sex: 33/F Location: [facility] Status: Signed Intake Vital Signs 03/17/24 09:54 04/23/24 08:15 Height 5 ft 8 in 5 ft 8 in Weight: 192 lb 193 lb BMI 29.2 29.3 BP 115/77 115/77 Blood Pressure Location Rt brachial Rt brachial Position Sitting Sitting Respiration 16 18 Pulse 65 Pulse Source Monitor Temp 97.3 F L Temp Source Temporal Pulse Oximetry (%) 99 Oxygen Delivery Method room air Intake Visit Reasons: R SIDE PAIN - POSSIBLE HERNIA Chief Complaint: r side pain- possible hernia Accompanied by: mom and kids Is patient in pain?: Yes Allergies adhesive Allergy (Severe, Verified 04/23/24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 fluid infused: 60 Progress Note Anesthesia document: Postop Eval 1 completed: Yes 01/15/24 1332 Date Connor Olivares Signature: Date CC: Signed Normal [facility] MR/[id number] [facility]-15-2024 [facility] Medical Records Department [address] [facility] [place] [address] Anesthesia Postop Eval II 01/15/24 1439 MR#: [id number] Acct: [id number] Name: RG KELLEYN Rep #: [id number] : 1990 33 From: Fernando Pizarro MD PCP: Dr. Radha Agee MD Status:REG SDC Y Race: TXD Location: [place] [address] Anesthesia Postop Eval I Sum Postop Eval Completion status Anesthesia document: Postop Eval 1 completed: Yes Anesthesia Postop Eval I Summary Anesthesia Postop Eval I Summary: Anesthesia Postop Eval I: Assessment Summary Airway patent Yes 01/15/24 13:32 [email or web address] Spontaneous unlabored Yes 01/15/24 13:32 [email or web address] respirations Mental status Asleep 01/15/24 13:32 [email or web address] nausea No 01/15/24 13:32 [email or web address] Vomiting No 01/15/24 13:32 [email or web address] Anesthesia Postop Eval I: Fluid Summary Crystalloid volume administer 60 01/15/24 13:32 [email or web address] (ml) Colloids volume administered ( ml) Blood Product volume administered (ml) Total IV fluid infused 60 01/15/24 13:32 [email or web address] Anesthesia Postop Eval I: Summary Notes Anesthesia Complication No 01/15/24 13:32 [email or web address] Anesthesia Complication Comment: Post-operative progress note Anesthesia: Postop Eval II Evaluation Mental status: Awake Pain Level: 0 nausea: No Vomiting: No 01/15/24 1439 Date Fernando Pizarro MD Cosigner Signature: Date CC: Signed Normal [facility] P53 (initial)on 01-15-2024 P53 (initial) --- Patient Age/Sex Location Account Attending Physician RG KELLEY EN [id number] Zach Benoit DO Specimen: [id number] Received: 01/17/24 Status: GIANCARLO Tejada Num: [id number] Spec Type: IMMUNO Subm Dr: Zach Benoit DO PHYSICIAN INSTITUTION [place] [address] SPECIMEN INFORMATION: Tissue Source: C- Distal esophagus biopsy Clinical Info: GERD Specimen Number: [id number] CPT code: 97367,61731 METHODOLOGY: Deparaffinized sections of prefer/formalin-fixed tissue or PAP/DQ stained slides are incubated with monoclonal/polyclonal antibodies/oligonucleot megan probes. Localization is made via biotin free immunoperoxidase method. Appropriate controls are performed and reacted as expected. Results on target cell population are indicated in the following table: RESULTS: ANTIBODY / CLONE RESULT Block C P53 (DO-7) negative (null pattern) Ki-67 (30-9) positive, low These tests were developed and their performance characteristics determined by [facility]. They may not have been cleared or approved by the U.S. Food and Drug Administration. The FDA has determined that such clearance or approval is not necessary. The above immunohistochemical/lizy Kraig markers are ordered and reviewed by the Pathologist. INTERPRETATION: C. Distal esophagus, biopsy: Negative for dysplasia. SJ.mr 01/17/2024 Signed (signature on file) Dr. Minesh Hudson MD 01/17/24 1407 Normal [facility] Comment on above: Performed By: #### P P53 ####[facility] [address] [place], [place], [address] ,Urineon 01-15-2024 Beta HCG ( test) Ql (U) Negative Normal [facility] Comment on above: Result Comment: Very dilute urine specimens, as indicated by a low specific gravity, may not contain signs and displays sales representative levels of hCG. If is still suspected, a first morning urine specimen should be collected 48 hours later and tested. Performed By: #### L [phone] ####[facility] [address] [place], [place], [address] Special Stain Group Ion 10- Special Stain Group I ----- Patient Age/Sex Location Account Attending Physician RG KELLEY / EN [id number] Zach Benoit DO Specimen: [id number] Received: 01/15/24 Status: GIANCARLO Tejada Num: [id number] Spec Type: EGD BIOPSY Subm Dr: Zach Benoit DO HEADER OPERATION: EGD, biopsy, dilatation PRE-OP DIAGNOSIS: GERD TISSUE SUBMITTED: A- Duodenum biopsy, B- Random esophagus biopsy, C- Distal esophagus biopsy MICROSCOPIC DIAGNOSIS A. Duodenum, biopsy: Fragments of duodenal mucosa, no pathologic diagnosis. B. Esophagus, random biopsy: Fragments of benign squamous epithelium. C. 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 Focal chronic inflammation. Negative for dysplasia. See comment. /mr 01/16/2024 COMMENT C. Alcian blue/PAS stain with matched control is used in the evaluation of the specimen. Immunohistochemistry ([id number]) for P53 and Ki-67 is being performed and results will be reported separately. MICROSCOPIC DESCRIPTION Slides are reviewed. GROSS DESCRIPTION A. Received in fixative is one container labeled with the patient's name and designated Duodenum biopsy. The specimen consists of multiple irregular fragments of light dash soft tissue that in aggregate measure 1.0 x 0.4 x 0.1 cm. The specimen is totally submitted in one cassette. B. Received in fixative is one container labeled with the patient's name and designated Random esophageal biopsy. The specimen consists of multiple irregular fragments of light dash soft tissue that in aggregate measure 1.2 x 0.4 x 0.1 cm. The specimen is totally submitted in one cassette. C. Received in fixative is one container labeled with the patient's name and designated Distal esophagus biopsy. The specimen consists of two irregular fragments of light dash soft tissue that in aggregate measure 0.6 x 0.5 x 0.1 cm. The specimen is totally submitted in one cassette. SJ. 01/15/2024 TC:3 CPT:10966r8, 67003 Patient Age/Sex Location Account Attending Physician RG KELLEY / EN [id number] Zach Benoit DO Signed (signature on file) Dr. Minesh Hudson MD 01/17/24 0931 Normal [facility] Comment on above: Performed By: #### P SSI #### [facility] [place], [address] CONSULT PROGon 01-11-2024 CONSULT PROG HNO ID: [id number] Author: HANNAH HIDALGO LPCC Service: Behavioral Health IOP (Intensive [...] 11, 2024 TIME: 9:14 AM [facility] 01-09-2024 [facility] Telephone (ARESCL) RG KELLEY ([id number]) 1990 F Date Time Provider Department 01/09/24 SHEILA SWARTZ During your visit today, we recorded the following information about you: Hannah Ghosh 01/09/2024 9:00 AM Signed Patient still [...] - Unknown Date Reviewed: 01/08/2024 Reviewed by: Darnell Blount MD - Fully Assessed Prescriptions as of 01/09/2024 - prazosin (MINIPRESS) 1 mg cap Take 1 capsule by mouth daily at bedtime. - mirtazapine (REMERON) 15 mg tablet Take 1 tablet by mouth daily at bedtime. - amitriptyline (ELAVIL) 25 mg tablet Take 1 tablet by mouth every afternoon. - L.acidophilus-L.rhamnos us (FLORAJEN WOMEN) 15 billion cell capsule Take [...] mental condition [F51.05] 01/08/2024 Encounter Status:Closed by HANNAH GHOSH on 01/09/24 Normal [facility] 36on 01-08-2024 [address] kori Seay [facility] 36 Mychart mssg sent Normal [facility] CNOVon 01-08-2024 CNOV Office Visit (ARESCL ) RG KELLEY ([id number]) 1990 F Date Time Provider Department 01/08/24 8:00 AM SHEILA SWARTZ ARESJ During your visit today, we recorded the following information about you: Sheila Swartz DO 01/08/2024 4:47 PM Attested Addendum Attestation signed by Darnell Blount MD at 01/11/2024 2:32 PM Teaching attending- indirect supervision note: Reviewed pt's chart and agree with residents assessment and plan. Pt was not seen by me. Darnell Blount MD Adult and Geriatric Psychiatry [facility] BEHAVIORAL MEDICINE RESIDENT CLINIC PROGRESS NOTE PATIENT: Rg Kelley MRD: [id number] DATE: January 07, 2024 IDENTIFYING INFORMATION: Rg [...] with her. In a note from Dr. Nghia Kelsey on 05/08/23, her moved out in [...] help him wake up to go to work. She states he comes over to help [...] would see, who would have to clean up. patient had a thought about 10 days ago after she woke up from a PTSD-related nightmare at 4AM and thought If I shoot myself, will my children hear me. Patient has access to a firearm. She [...] have to clean it up. I don't know. 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 Normal [facility] ED NOTEon 01-08-2024 ED NOTE HNO ID: [id number] Author: KATIE LANGE, RN Service: Emergency Medicine Author Type: Registered Nurse Type: ED Notes Filed: 01/08/2024 14:12 Note Text: Patient states weapon has been removed from her home and secured by her mother. States she will not have access to it. [facility] ED NOTE HNO ID: [id number] Author: KATIE LANGE, RN Service: Emergency Medicine Author Type: Registered Nurse Type: ED Notes Filed: 01/08/2024 13:17 Note Text: Updated patient with plan of care. Awaiting call back from Dr. Leone. [facility] ED NOTE HNO ID: [id number] Author: KATIE LANGE RN Service: Emergency Medicine Author Type: Registered Nurse Type: ED Notes Filed: 01/08/2024 13:18 Note Text: Dr. Vasiliy Johnson at bedside. [facility] ED NOTE HNO ID: [id number] Author: JOHN PITTS RN Service: ? Author Type: Registered Nurse Type: ED Notes Filed: 01/08/2024 09:26 Note Text: Bed: [facility] Expected date: Expected time: Means of arrival: Comments: BH only [facility] ED PROV NOTEon 01-08-2024 ED PROV NOTE HNO ID: [id number] Author: VASILIY JOHNSON MD Service: Emergency Medicine Author Type: Resident Type: ED Provider Notes Filed: 01/08/2024 09:55 Note Text: Attestation signed by Vasiliy Johnson MD at 01/08/2024 9:55 AM I primarily evaluated patient. Separate note includes details from my encounter. Signature: Vasiliy Johnson MD Date: 01/08/2024 Time: 9:55 AM Did not participate in the care of this patient. SHILOH ORTEGA 01/08/2449 VASILIY JOHNSON 01/08/2455 Normal [facility] ED PROV NOTE HNO ID: [id number] Author: VASILIY JOHNSON MD Service: Emergency Medicine Author Type: Physician Type: ED Provider Notes Filed: 01/08/2024 14:10 Note Text: ED Provider Note Patient Name: Rg Kelley : 1990 SERVICE DATE: 01/08/24 History Patient presents with: Depression: Patient arrives from [facility] building escorted by Dr. Swartz who pink [...] she was and breast-feeding, currently has an 08-[id number]-owj and a 3-year-old at home. Patient does [...] Hives, Unknown - Latex Rash - Nitrofurantoin Sabine* Hives - Phenazopyridine Hives - Silver Sulfadiazine Hives - Soy Anaphylaxis - Tetracycline Hcl Unknown Review of Systems Constitutional: Negative for chills, fatigue and fever. Skin: Negative for color change, rash and wound. Neurological: Negative for weakness and headaches. Hematological: Negative for adenopathy. Does not bruise/bleed easily. Psychiatric/Behavioral: Positive for sleep disturbance. Negative for behavioral [...] rapid and pressure (more content not included)... [facility] 36on 01-07-2024 36 Call/request routed to Dr Prasad to change Rx to pt preferred [facility] 36on 01-04-2024 36 SEE PREVIOUS TE S: Patient spoke [...] policy Protocols used: Medication [facility] and [id number] Rx sent to pharm [facility] [address] Prasad and [facility] 36 S: Patient spoke dee TRAVIS nurse regarding yeast infection B: 1 week [...] school, work, or sleep) Protocols used: Vaginal [id number]-SP [facility] 36 Call/request routed to Dr Adams. [facility] 36 S: Patient spoke dee h CAC nurse regarding yeast infection medication effectiveness [...] call should be referred to that group. Kori Hudson 4. SYMPTOMS: Do you have any symptoms? If Yes, ask: What symptoms are you having? How bad are the symptoms (e.g., mild, moderate, severe) Itching, 5/10 burning, discharge, 5/10 painful urination 5. : Is there any chance that you are ? When was your last menstrual period? N/A Protocols used: Medication Question [id number] [facility] 36on 01-03-[address] [facility] [address] [facility] Office Visiton 01-02-2024 Follow-up visit [id number] Liang Kelley 1990 F Date Provider Department Center 01/02/2024 [id number] ADAMS [facility] OB Offi Family History Problem [...] Sister Alive Other Neg Hx Level of Service:39161 [facility] OFFICE/OUTPATIENT ESTABLISHED LOW MDM 20 MIN Reason for Visit and Comments: Vaginal Discharge [833922] [facility] Progress Noteon 01-02-2024 Progress Note Rg Kelley [...] Cancer Father Colon cancer Father 40 Other (89301) Father crohns Other (66237) Mother migraines Celiac disease Mother High Blood [...] Financial Resource Strain: Unknown (04/10/2022) Received from [facility] Overall Financial Resource Strain (CARDIA) Difficulty of Paying Living Expenses: Patient declined Food Insecurity: Unknown (04/10/2022) Received from [facility] Hunger Vital Sign Worried About Running Out of Food in the Last Year: Patient declined Ran Out of Food in the Last Year: Patient declined Transportation Needs: Unknown (04/10/2022) Received from [facility] PRAPARE - Transportation Lack of Transportation (Medical): Patient declined Lack of Transportation (Non-Medical): No Physical Activity: Unknown (04/10/2022) Received from [facility] Exercise Vital Sign Days of Exercise per Week: Patient declined Minutes of Exercise per Session: Patient declined Stress: Stress Concern Present (04/10/2022) Received from [facility] [place] [facility] Occupational [facility] - Occupational Stress Questionnaire Feeling of Stress : Very much Social Connections: Moderately Integrated (04/10/2022) Received from [facility] Social Connection and Isolation Panel [NHANES] Frequency of Communication with Friends and Family: More than three times a week Frequency of Social Gatherings with Friends and Family: More than three times a week Attends Hindu Services: More than 4 times per year Active Member of Clubs or Organizations: No Attends Club or Organization Meetings: Never Marital Status: Intimate Partner Violence: Not At Risk (07/17/2022) Humiliation, Afraid, Rape, and Kick questionnaire Fear of Current or Ex-Partner: No Emotionally Abused: No Physically Abused: No Sexually Abused: No Housing Stability: Unknown (04/10/2022) Received from [facility] Housing Stability Vital Sign Unable to Pay [...] ( 1 PO) Take by mouth. rizatriptan GEOGRAPHIC INFORMATION SYSTEM SURVEYOR (Maxalt-GEOGRAPHIC INFORMATION SYSTEM SURVEYOR) 10 MG disintegrating (more content not included)... [facility] 36on 01-01-2024 [address] Prasad to place imaging order and mychart mssg sent to pt [facility] 36 S: The patient is calling the [facility] about vulvar burning B: This started [...] < 24 hour duration.) Protocols used: Vulvar [id number] [facility] 36 Name of caller: Severo garza Contact phone number: [phone] Relationship to Patient: patient Provider: Shanice Practice: OBGYN Chief Complaint/Reason for Call: Pt calling because she is supposed to schedule an ultrasound and follow up but order isn't in. Please advise. Best time of day caller can be reached: Any Patient advised that office/PCP has 24-48 business hours to return their call: [facility] 17-HYDROXYPROGESTERONE (BKR [facility])on 12-21-2023 [facility] 17-HYDROXYPROGESTERONE 19 ng/dL Normal [facility] Comment on above: Result Comment: Unable to [...] Endocrinol Metab. 1991;73:674-686; J Clin Endocrinol Metab. 1989;69;8898-6995; J Clin Endocrinol Metab. 1994;78:226-270. Pediatr Res 1988;23:525-529. MedLinePlus (accessed 09/01/13). This test was developed and its analytical performance characteristics have been determined by [facility] [place], [place]. It has not been cleared or approved by the U.S. Food and Drug Administration. This assay has been validated pursuant to the CLIA regulations and is used for clinical purposes. Test Performed by [facility], [facility], [address] [place] [address] Jony Peña M.D., Ph.D., Director of Laboratories , CLIA [id number] Performed By: #### L [id number] ####[employer] (AMDBEAKER)[address] [place] [address] [facility] CBC (HEMOGRAM)on 12-21-2023 Erythrocyte distribution width (RBC) [Ratio] 13.9 % Normal 11.5-15.0 [facility] Comment on above: Performed By: #### L [id number] ####Aircraft Charter Dispatcher: DYAN ALEXANDER ([id number])[facility] (RLAB)[address] [place] [address] Hematocrit (Bld) [Volume fraction] 39.1 % Normal 35.0-47.0 [facility] Comment on above: Performed By: #### L [id number] ####Aircraft Charter Dispatcher: DYAN ALEXANDER ([id number])[facility] [employer] (RLAB)[address] [place] [address] Hemoglobin (Bld) [Mass/Vol] 12.6 g/dL Normal 11.7-16.0 [facility] Comment on above: Performed By: #### L [id number] ####Aircraft Charter Dispatcher: DYAN ALEXANDER ([id number])[facility] (SWRLAB)[address] [place] [address] MCH (RBC) [Entitic mass] 25.7 pg Low 26.0-34.0 [facility] Comment on above: Performed By: #### L [id number] ####Aircraft Charter Dispatcher: DYAN ALEXANDER ([id number])[facility] (SWRLAB)[address] [place] [address] MCHC 32.2 % Normal 30.5-36.0 [facility] Comment on above: Performed By: #### L [id number] ####Aircraft Charter Dispatcher: DYAN ALEXANDER ([id number])[facility] (SWRLAB)[address] [place] [address] MCV (RBC) [Entitic vol] 79.8 fL Normal 77.0-99.0 [facility] Comment on above: Performed By: #### L [id number] ####Aircraft Charter Dispatcher: DYAN ALEXANDER ([id number])[facility] (SWRLAB)[address] [place] [address] Platelet mean volume (Bld) [Entitic vol] 9.3 fL Normal 9.0-12.7 [facility] Comment on above: Result Comment: MPV is a calculated measurement using platelet volume ratio Performed By: #### L [id number] ####Aircraft Charter Dispatcher: DYAN ALEXANDER ([id number])[facility] (SWRLAB)[address] [place] [address] [place] Platelets (Bld) [#/Vol] 306 10*3/uL Normal 140-440 [facility] Comment on above: Performed By: #### L [id number] ####Aircraft Charter Dispatcher: DYAN ALEXANDER ([id number])[facility] (SWRLAB)[address] [place] [address] RBC (Bld) [#/Vol] 4.90 10*6/uL Normal 3.80-5.20 [facility] Comment on above: Performed By: #### L [id number] ####Aircraft Charter Dispatcher: DYAN ALEXANDER ([id number])[facility] (SWRLAB)[address] [place] [address] WBC (Bld) [#/Vol] 7.2 10*3/uL Normal 3.6-10.7 [facility] Comment on above: Performed By: #### L [id number] ####Aircraft Charter Dispatcher: DYAN ALEXANDER ([id number])[facility] (SWRLAB)[address] [place] [address] CBC panel Auto (Bld)Ordered By: Jaya Herman on 12-21-2023 Erythrocyte distribution width (RBC) [Ratio] 13.9 % 11.5 - 15.0 % [facility] Hematocrit (Bld) [Volume fraction] 39.1 % 35.0 - 47.0 % [facility] Hemoglobin (Bld) [Mass/Vol] 12.6 g/dL 11.7 - 16.0 g/dL [facility] Interpretation and review of laboratory results Abnormal [facility] MCH (RBC) [Entitic mass] 25.7 pg Low 26.0 - 34.[address] [facility] MCHC (RBC) [Mass/Vol] 32.2 % 30.5 - 36.0 % [facility] MCV (RBC) [Entitic vol] 79.8 fL 77.0 - 99.[address] [facility] Platelet mean volume (Bld) [Entitic vol] 9.3 fL 9.0 - 12.[address] [facility] Comment on above: MPV is a calculated measurement using platelet volume ratio Platelets (Bld) [#/Vol] 306 10*3/uL 140 - 440 10*3/uL [facility] RBC (Bld) [#/Vol] 4.90 10*6/uL 3.80 - 5.2 0 10*6/uL [facility] WBC (Bld) [#/Vol] 7.2 10*3/uL 3.6 - 10.7 10*3/uL [facility] DHEA-SULFATEon 12-21-2023 DEHYDROEPIANDROSTERONE SULFATE (DHEA-S) (UG/DL) IN SER/ 108 ug/dL Normal 99-340 [facility] Comment on above: Result Comment: REFE RENCE INTERVAL: DHEAS Access complete set of age- and/or gender-specific reference intervals for this test in the [facility] Test Directory (Expreem). Performed By: [employer] [address] [place] [address] Climate Change Risk Assessor: Sergio Nelson MD, PhD CLIA Number: [id number] Performed By: #### L [id number] ####[facility] ([facility])[address] [place] [address] [facility] Draw Kiton 12-21-2023 Draw Kit Collected and shippe d for testing. [facility] Comment on above: Auto resulted. [email or web address] ARTtwo50 HCG ( test) Ql (U)o n 12-21-2023 Beta HCG ( test) Ql (U) . Glyde NEGATIVE QC Pass Glyde POSITIVE QC Pass [facility] Preg Test, Ur Negative Negative [facility] ARTtwo50 HCG QUANTITATIVE BLOODon HCG QUANTITATIVE <2 Normal Females <=5 [facility] Comment on above: Result Comment: DIRK Green [...] trophoblastic disease. Performed By: #### L [id number], [id number] ####Aircraft Charter Dispatcher: DYAN ALEXANDER ([id number])[facility] (SWRLAB)[address] [place] [address] Office Visiton 12-21-2023 Follow-up visit [id number] Liang Kelley 1990 F Date Provider Department Center 12/21/2023 JEANIE VIDES [facility] Offi Family History Problem [...] Sister Alive Other Neg Hx Level of Service:86752 [facility] OFFICE/OUTPATIENT NEW LOW MDM 30 MINUTES Reason for Visit and Comments: New Patient [542] - Heavy bleeding, pain during intercourse Normal [facility] PROLACTINon 12-21-2023 PROLACTIN 8.8 ng/mL Normal 3.0-35.0 [facility] Comment on above: Result Comment: DIRK R COMMENTS: Values below 35 ng/mL may be of doubtful significance. Recommend send-out testing to rule out macroprolactin to confirm the result. 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 Exam next visit Orders Placed This Encounter Procedures Chlamydia/Gonorrhea EMPOWER MULTI-CANCER (2 + 38) DO NOT DELETE BELOW THIS LINE Department Information ID: [id number] Department:[facility] [address] [facility] [address] Dept: [phone] Dept Loc: [phone] Order Specific Question: Patient and physician allow [...] history of malignant neoplasm of digestive organ [661616] CBC Standing Status: Future Number of Occurrences: [...] counseling on preventative health maintenance follow-up. Normal [facility] Prolactinon 12-21-2023 Interpretation and review of laboratory results Normal [facility] Prolactin [Mass/Vol] 8.8 ng/mL 3.0 - 3 5.0 ng/mL [facility] Values below 35 ng/m L may be of doubtful significance. Recommend send-out testing to rule out macroprolactin to confirm the result. [facility] TESTOSTERONE, FREE/TOTAL BY GAS OR WATER METER INSTALLER (SENDOUT)on 12-21-2023 SEX HORMONE BINDING GLOBULIN 51 nmol/L Normal 25-122 [facility] Comment on above: Result Comment: REFE RENCE INTERVAL: Sex Hormone Binding Globulin Access complete set of age- and/or gender-specific reference intervals for this test in the [facility] Test Directory (Expreem). Performed By: #### L [id number] ####[facility] ([facility])[address] [place] [address] [facility] TESTOSTERONE BY GAS OR WATER METER INSTALLER 10 ng/dL Normal 9-55 [facility] Comment on above: Result Comment: REFE RENCE INTERVAL: Testosterone by Water Quality Technician Females Premenopausal 9-55 ng/dL Postmenopausal 5-32 ng/dL INTERPRETIVE INFORMATION: Testosterone by Water Quality Technician Free or bioavailable testosterone measurements may provide supportive information. For individuals on testosterone-suppressing hormone therapies (e.g., antiandrogens or estrogens), refer to cisgender female reference intervals. For a complete set of all established reference intervals, refer to [employer]/Tests/Pub/[id number]. This test was developed and its performance characteristics determined by [employer]. It has not been cleared or approved by the US Food and Drug Administration. This test was performed in a CLIA certified laboratory and is intended for clinical purposes. Performed By: #### L [id number] ####[facility] ([facility])[address] [place] [address] [facility] TESTOSTERONE, FREE BY GAS OR WATER METER INSTALLER 1.3 pg/mL Normal 1.3-9.2 [facility] Comment on above: Result Comment: REFE RENCE INTERVAL: Testosterone, Free by Water Quality Technician Females Postmenopausal: 0.6 - 3.8 pg/mL INTERPRETIVE INFORMATION: Testosterone, Free by Water Quality Technician Free testosterone concentration is calculated using total testosterone (measured by mass spectrometry) and the binding constant of testosterone and sex hormone-binding globulin (SHBG). For individuals on testosterone-suppressing hormone therapies (e.g., antiandrogens or estrogens), refer to cisgender female reference intervals. For a complete set of all established reference intervals, refer to [employer]/Tests/Pub/[id number]. This test was developed and its performance characteristics determined by [employer]. It has not been cleared or approved by the US Food and Drug Administration. This test was performed in a CLIA certified laboratory and is intended for clinical purposes. Performed By: [employer] [address] [place] [address] Climate Change Risk Assessor: Sergio Nelson MD, PhD CLIA Number: [id number] Performed By: #### L [id number] ####[facility] ([facility])[address] [place] [address] [facility] THYROID STIMULATING HORMONEo n 12-21-2023 THYROID STIMULATING HORMONE 0.966 uIU/mL Normal 0.465-4.680 [facility] Comment on above: Performed By: #### L [id number], [id number] ####Aircraft Charter Dispatcher: DYAN ALEXANDER ([id number])[facility] (RLAB)[address] [place] [address] TSHon 12-21-2023 TSH Qn 0.966 m[IU]/L [facility] TSH Qnon 12-21-2023 Interpretation and review of laboratory results Normal [facility] hCG, quantitativeon 12-21-19 24 HCG.beta subunit Qn Females <=5 mIU/mL [facility] Values in should double every 2 [...] or monitor tumors or gestational trophoblastic disease. [facility] 11-22-2023 36 Patient cancelled future appt with Dr. Gallego [facility] 11-21-2023 36 Message released to patient as [...] relayed to the patient from encounter: No [facility] 36 Patient notified and was advised to schedule an appt with the Psychiatrist she was seeing at [facility]. Normal [place] [address] She canceled her appointment with me in August -it says changed provider. She is currently scheduled to see me next week. I am unable to write the jury duty excuse for breast-feeding. If it is based on PTSD, she would need to talk to her psychiatrist. [place] [address] Name of caller: Severo garza Contact phone number: [phone] Relationship to Patient: patient Provider: Dr. Gallego Practice: [facility] Chief Complaint/Reason for Call: The patient would like to be excused from Jury Duty due to the patient is still breast feeding and she also has a depression disorder along with PTSD . The patient received a letter from [facility] [address]. The patient badge ID number is [id number] for the week of service on 11-23-2023. Please fax number is [phone]. If you have any questions, please call the patient. Best time of day caller can be reached: anytime Patient advised that office/PCP has 24-48 business hours to return their call: Yes [facility] CNPNon 11-21-2023 CNPN Telephone (ARESCL) RG KELLEY ([id number]) 1990 F Date Time Provider Department 11/21/23 NGHIA KELSEY ARESJ During your visit today, we recorded the following information about you: Hannah Ghosh 11/21/2023 1:57 PM Signed Pt needs a jury duty excusat letter sending request to Doctor Nghia Kelsey MD 11/21/2023 3:42 PM Signed Patient likely can reach out to appropriate court with letter specifying her most recent psychiatric diagnoses to be excused. Provided letter with pt's psychiatric diagnoses based on our last encounter to coordinator. SIGNATURE: Nghia Kelsey MD PATIENT NAME: Rg Kelley DATE: November 21, 2023 TIME: 3:41 PM Hannah Ghosh 11/21/2023 4:07 PM Signed I called [...] - Unknown Date Reviewed: 05/08/2023 Reviewed by: Darnell Blount MD - Fully Assessed Prescriptions as of 11/21/2023 - amitriptyline (ELAVIL) 25 mg tablet Take 1 tablet by mouth every afternoon. - L.acidophilus-L.rhamnos (FLORAJEN WOMEN) 15 billion cell capsule Take [...] and without status migrai*10/20/2022 Encounter Status:Closed by HANNAH GHOSH on 11/21/23 [facility] 36on 11-09-[address] [facility] Office Visiton 11-08-2023 Follow-up visit [id number] Liang Kelley 1990 F Date Provider Department Center 11/08/2023 58-FAY [facility] None Family History Problem Relation Age [...] Brother Alive Other Neg Hx Level of Service:33423 [facility] OFFICE/OUTPATIENT NEW MODERATE MDM 45 MINUTES Reason for Visit and Comments: Skin Lesion [[id number]] - SHAREBROKER (CRB) [facility] PATIJONNon 11-08-2023 PATI BIOPSY / SURGICAL AFTERCARE 1. If a [...] does not stop, call our office at [phone]. 6. The wound should improve daily. If [...] please stop it and call the office [phone]. Many acne medications can make you more [...] office. Patient reminded to schedule appointments with orthotic aide, dentist and supervisor incising as melanoma can also occur in these [...] information on melanoma and other skin cancers. [facility] Progress Noteon 11-08-2023 Progress Note DATE OF SERVICE: 11/08/2023 PATIENT NAME: Rg Kelley : 1990 AGE: 33 y.o. CLINIC NUMBER: [id number] Visit type: New Chief Complaint Patient presents with Skin Lesion SHAREBROKER (CRB) Subjective HISTORY OF PRESENT ILLNESS: This is a 33 y.o. female who presents for evaluation of skin lesions and acne. Patient has seen a trauma program manager in the past. C/o-skin lesion located on [...] affect. 1. Facial skin lesion Related Procedures [facility] 2. Skin tags, multiple acquired Left Shoulder - Anterior Flesh colored pedunculated papule(s) with signs of irritation/inflammation . Reassured that this is a benign lesion [...] reapply. Try to limit sun exposure to oracle bpm consultant or late evening hours. Patient advised to [...] PA-C 11/09/23 1:47 PM REFERRING MD: Pratik E[address]anks [address] / [place] [address] [facility] 36on 11-07-2023 36 S: Patient spoke dee h [facility] nurse regarding medication problem B: Emergency [...] to answer question Protocols used: Medication Question [id number] [facility] Absolute lymphocyte countOrd ered By: Kia Peres on 02-26-2023 Lymphocytes Auto (Unsp spec) [#/Vol] 2.95 10*3/uL 0.83-4.51 [facility] Basophil percentageOrdered B y: Kia Peres on 02-26-2023 Basophils/100 WBC (Bld) 0.2 % 0-1 [facility] Bilirubin [Mass/Vol] 0.50 mg/dL 0.20-1.[address] [facility] Comment on above: For patients on eltr ombopag therapy, use of Dimension [place] TBIL is not recommended. Chloride [Moles/Vol] 109 mmol/L 98-[address] [facility] Eosinophils/100 WBC (Bld) 0.9 % 0-5 [facility] Glucose [Mass/Vol] 87 mg/dL 74-106 [facility] Neutrophils (Bld) [#/Vol] 5.7 10*3/uL 2.0-7.7 [facility] Neutrophils/100 WBC (Bld) 61.7 % 47-70 [facility] Potassium [Moles/Vol] 4.1 mmol/L 3.5-5.1 [facility] Protein [Mass/Vol] 8.4 g/dL 6.4-8.2 [facility] Sodium [Moles/Vol] 139 mmol/L 136-145 [facility] WBC (Bld) [#/Vol] 9.2 10*3/uL 4.4-11.0 [facility] Blood erythrocytes count (nu mber/volume)Ordered By: Kia Peres on 02-26-2023 RBC (Bld) [#/Vol] 5.20 10*6/uL 4.2-5.4 [facility] Blood hemoglobin measurement (mass/volume)Ordered By: Kia Peres on 02-26-2023 Hemoglobin (Bld) [Mass/Vol] 13.5 g/dL 12.0-15.0 [facility] Blood lymphocytes/100 leukoc ytesOrdered By: Kia Peres on 02-26-2023 Lymphocytes/100 WBC (Bld) 32.2 % 19-41 [facility] Blood monocytes/100 leukocyt esOrdered By: Kiamahad Peres on 02-26-2023 Monocytes/100 WBC (Bld) 3.8 % 0-10 [facility] Blood platelet mean volumeOr dered By: Kia Peres on 02-26-2023 Platelet mean volume (Bld) [Entitic vol] 9.8 fL 6.2-12.0 [facility] Determination of erythrocyte mean corpuscular volume (MCV)Ordered By: Kia Peres on 02-26-2023 MCV (RBC) [Entitic vol] 83.1 fL 81-99 [facility] Hematocrit Auto (Bld) [Volum e fraction]Ordered By: Kia Peres on 02-26-2023 Hematocrit (Bld) [Volume fraction] 43.2 % 37-47 [facility] Laboratory - Chemistry and C hemistry - challengeOrdered By: Kiamahad Peres on 02-26-2023 ALP [Catalytic activity/Vol] 83 U/L 45-117 [facility] ALT [Catalytic activity/Vol] 16 U/L 13-56 [facility] CO2 [Moles/Vol] 23.0 mmol/L 21.0-32.0 [facility] Free T4 [Mass/Vol] 1.03 ng/dL 0.76-1.46 [facility] Globulin (S) [Mass/Vol] 4.1 g/dL 2.2-4.2 [facility] Urea nitrogen/Creatinine [Mass ratio] 15.8 mg/mg 10-20 [facility] Laboratory - Hematology and Cell countsOrdered By: Kia Peres on 02-26-2023 Erythrocyte distribution width (RBC) [Entitic vol] 39.9 fL 35.1-43.9 [facility] Erythrocyte distribution width (RBC) [Ratio] 13.2 % 11.6-14.6 [facility] Immature granulocytes/100 WBC (Bld) 1.200 % 0.0-0.9 [facility] Comment on above: IG% - Immature Granu locytes (promyelocytes, myelocytes and metamyelocytes) > 1% indicates that a LEFT SHIFT is Present. MCH (RBC) [Entitic mass] 26.0 pg 27.0-32.0 [facility] Nucleated RBC/100 WBC (Bld) [Ratio] 0 % 0-5 [facility] MCHC Auto (RBC) [Mass/Vol]Or dered By: Kia Peres on 02-26-2023 MCHC (RBC) [Mass/Vol] 31.3 g/dL 32-36 [facility] No Panel InformationOrdered By: Kia Peres on 02-26-2023 Estimated GFR (MDRD) Amer 114 mL/min >60 [facility] Comment on above: GFR Calc Estimated GFR (MDRD) Non-Af Amer 95 mL/min >60 [facility] Comment on above: Non- GFR Calc Thyroid Stimulating Hormone (TSH) 1.33 uIU/mL 0.358-3.74 [facility] Vitamin D 25-Hydroxy 25.8 ng/mL [facility] Comment on above: Vitamin D 25(OH) Sta tus Range Deficiency <20 ng/mL (50nmol/L) Insufficiency 20 - 30 ng/mL (50 - 75 nmol/L) Sufficiency 30 - 100 ng/mL (75 - 250 nmol/L) Toxicity >100 ng/mL (>250 nmol/L) Platelets bldOrdered By: Lenore Peres on 02-26-2023 Platelets (Bld) [#/Vol] 340 10*3/uL 150-450 [facility] Serum or plasma albumin qing urement (mass/volume)Ordered By: Kia Peres on 02-26-2023 Albumin [Mass/Vol] 4.3 g/dL 3.2-5.0 [facility] Serum or plasma albumin/glob ulin mass ratioOrdered By: Kia Peres on 02-26-2023 Albumin/Globulin [Mass ratio] 1.0 {ratio} 0.9-2.4 [facility] Serum or plasma calcium qing urement (mass/volume)Ordered By: Kia Peres on 02-26-2023 Calcium [Mass/Vol] 9.0 mg/dL 8.5-10.1 [facility] Serum or plasma creatinine m easurement (mass/volume)Ordered By: Kia Peres on 02-26-2023 Creatinine [Mass/Vol] 0.76 mg/dL 0.55-1.02 [facility] Comment on above: The validity of the calculated GFR & GFRAA in patients over 70 years has not been determined. Clinical correlation is essential. Serum or plasma estradiol (E 2) measurement (mass/volume)Ordered By: Kia Peres on 02-26-2023 E2 [Mass/Vol] 131.0 pg/mL [facility] Comment on above: NORMAL REFERENCE RAN GES FEMALE FOLLICULAR 21.4 - 164.8 pg/mL MID-CYCLE PEAK 49.9 - 367.2 pg/mL LUTEAL 40.2 - 259.0 pg/mL POST-MENOPAUSAL ON MHT <11.0 - 462.1 pg/mL NOT ON MHT <11.0 - 58.3 pg/mL MALE <11.0 - 52.5 pg/mL NOTE:[employer] HAS CONFIRMED THE DRUG FULVETRANT (FASLODEX) MAY CAUSE FALSELY ELEVATED ESTRADIOL RESULTS WHEN USING THIS TEST METHOD. IF PATIENT IS TAKING FULVESTRANT AN ALTERNATIVE METHOD SHOULD BE USED TO DETERMINE ESTRADIOL CONCENTRATION. Serum or plasma prolactin me asurement (mass/volume)Ordered By: Kia Peres on 02-26-2023 Prolactin [Mass/Vol] 15.9 ng/mL [facility] [facility] Comment on above: NORMAL REFERENCE RAN GES FEMALE NON- 2.2 - 30.3 ng/mL 8.1 - 347.6 ng/mL POST-MENOPAUSAL 0.7 - 31.5 ng/mL MALE 2.5 - 17.4 ng/mL Serum or plasma thyroperoxid ase antibody assay (units/volume)Ordered By: Kia Peres on 02-26-2023 TPO Ab Qn 13 [IU]/mL 0-34 [facility] Comment on above: Performed at: - [facility] [id number] [place], [place] [id number] Director: Cortes Saab PhD, Phone: [phone] Serum or plasma urea nitroge n measurement (mass/volume)Ordered By: Kia Peres on 02-26-2023 Urea nitrogen [Mass/Vol] 12 mg/dL 7-18 [facility] Thin prep Papanicolaou smear with manual screeningOrdered By: Kia Peres on 02-26-2023 Thin prep Papanicolaou smear with manual screening 8 U/L 15-37 [facility] Thin prep Papanicolaou smear with manual screening 7 5-15 [facility] MR Brain WO contraston 02-22 Negative unenhanced MR scan of the brain. Nonspecific T2 hyperintensities within the subcortical and periventricular white matter which may be seen with chronic migraine headaches. Report Dictated on Electronically Signed By: Marcos Cifuentes DO Electronically Signed Date/Time: 02/22/2023 3:21 PM [facility] RADIOLOGY SYSTEM [facility] 1990 [id number] Exam Date/Time: 02/22/2023 15:34 Procedure: MR BRAIN [...] is seen within the vessels of the [place]. The globes and orbital contents are grossly normal. The paranasal sinuses are clear. [facility] Marcos Cifuentes DO - 02/22/2023 Patient Name: RG [facility]ELLEY : 1990 [id number] Exam Date/Time: 02/22/2023 15:34 Procedure: MR BRAIN [...] is seen within the vessels of the [place]. The globes and orbital contents are grossly normal. The paranasal sinuses are clear. IMPRESSION: Negative unenhanced MR scan of the brain. Nonspecific T2 hyperintensities within the subcortical and periventricular white matter which may be seen with chronic migraine headaches. Report Dictated on Electronically Signed By: Marcos Cifuentes DO Electronically Signed Date/Time: 02/22/2023 3:21 PM [facility] Radiology Study observation (narrative) [facility] MR Brain WO contrastOrdered By: Marcos Cifuentes on 02-22-2023 [facility] [id number] Work Phone: Gram stain for investigation of transfusion reactionOrdered By: Magaly Joyce on 10-27-2022 Microscopic observation Gram stain Nom (Unsp spec) [facility] Thin prep Papanicolaou smear with manual screeningOrdered By: Magaly Joyce on 10-27-2022 Genital Culture GNR lactose window [facility] Gram stain for investigation of transfusion reactionOrdered By: Magaly Joyce on 10-26-2022 Microscopic observation Gram stain Nom (Unsp spec) [facility] Thin prep Papanicolaou smear with manual screeningOrdered By: Magaly Joyce on 10-26-2022 Genital Culture GNR lactose window glazier helper [facility] BACTERIAL VAGINOSIS AMPLIFIC ATIONon 09-01-2022 Lactobacillus crispatus+gasseri+santa enii + Gardnerella vaginalis + Atopobium vaginae rRNA BLAIR+probe Ql (Vag fld) Negative Negative for bacterial vaginosis [facility] LETITIA / TRICHOMONAS AMPLIF ICATIONon 09-01-2022 C. glabrata RNA BLAIR+probe Ql (Vag fld) Negative Negative for Letitia glabrata [facility] Letitia albicans, C. dubliniensis, C. parapsilosis, and C. tropicalis RNA BLAIR+probe Ql (Vag fld) Negative Negative for Letitia species [facility] T. vaginalis DNA BLAIR+probe Ql (Unsp spec) Negative Negative for Trichomonas vaginalis by amplification [facility] Urinalysis complete panel (U )Ordered By: Liane Lang on 07-18-2022 Bacteria LM.HPF (Urine sed) [#/Area] Negative Negative /HPF [facility] Bilirubin Ql (U) Negative Negative mg/dL [facility] Clarity (U) Clear Clear [facility] Health Color (U) Light Yellow Lt. Yellow [facility] Epithelial cells.squamous LM.HPF (Urine sed) [#/Area] Negative [facility] Glucose Ql (U) Normal Normal (<70) mg/dL [facility] Hemoglobin Ql (U) 0.5 mg/dL Abnormal Negative [facility] Hyaline casts Auto (Urine sed) [#/Area] Negative Negative /LPF [facility] Interpretation and review of laboratory results Abnormal [facility] Ketones (U) [Mass/Vol] Negative Negative mg/d L [facility] Leukocyte esterase Test strip Ql (U) Negative Negative Alvarado/uL [facility] Mucus LM.HPF (Urine sed) [#/Area] Few Negative /LPF [facility] Nitrite Ql (U) Negative Negative [facility] pH (U) 7.0 [pH] 5.0 - 8.[address] [facility] Protein (U) [Mass/Vol] 20 mg/dL Abnormal Negative [facility] RBC LM.HPF (Urine sed) [#/Area] 26-[address] [facility] Specific gravity (U) [Rel density] 1.022 1.005 - 1.030 [facility] Urobilinogen (U) [Mass/Vol] Normal Normal (0-1) mg/dL [facility] WBC LM.HPF (Urine sed) [#/Area] 0-2 [facility] Blood type and Crossmatch pa xiomy (Bld)on 07-16-2022 ABO group Nom (Bld) O [facility] Blood group antibody screen GEL Ql Negative [facility] D Ag Ql (RBC) Positive [facility] CBC panel Auto (Bld)Ordered By: Evi Jane on 07-16-2022 Erythrocyte distribution width (RBC) [Ratio] 14.4 % 11.5 - 14.5 % [facility] Hematocrit (Bld) [Volume fraction] 32.6 % Low 35.0 - 47.0 % [facility] Hemoglobin (Bld) [Mass/Vol] 10.7 g/dL Low 11.7 - 16.0 g/dL [facility] Interpretation and review of laboratory results Abnormal [facility] MCH (RBC) [Entitic mass] 25.0 pg Low 26.0 - 34.[address] [facility] MCHC (RBC) [Mass/Vol] 32.9 % 32.0 - 36.0 % [facility] MCV (RBC) [Entitic vol] 75.9 fL Low 80.0 - 98.[address] [facility] Platelet mean volume (Bld) [Entitic vol] 7.7 fL 7.4 - 12.[address] [facility] Platelets (Bld) [#/Vol] 358 10*3/uL 140 - 440 10*3/uL [facility] RBC (Bld) [#/Vol] 4.30 10*6/uL 3.8 - 5.20 10*6/uL [facility] WBC (Bld) [#/Vol] 18.8 10*3/uL High 3.6 - 10.7 10*3/uL [facility] URINE OB DIP B/Oon 3 Glucose Ql (U) Negative Neg mg/dL [facility] Protein.monoclonal (U) [Mass/Vol] trace Neg mg/dL [facility] URINE OB DIP B/Oon 3 Glucose Ql (U) Negative Neg mg/dL [facility] Protein.monoclonal (U) [Mass/Vol] Negative Neg mg/dL [facility] ROUTINE, GROUP B ST REP PCRon 06-10-2022 S. agalactiae Org specific cx Ql (Vag fld) Negative Negative [facility] URINE CULTUREon 06-10-2022 Bacteria identified Cx Nom (U) <10,000 CFU/ml Normal urogenital brennen [facility] URINE OB DIP B/Oon 3 Glucose Ql (U) Negative Neg mg/dL [facility] Protein.monoclonal (U) [Mass/Vol] trace Neg mg/dL [facility] OBSTETRIC ULTRASOUND WHIon 1 04-30-2021 [facility] URINE OB DIP B/Oon 2 Glucose Ql (U) Negative Neg mg/dL [facility] Protein.monoclonal (U) [Mass/Vol] Negative Neg mg/dL [facility] SEQUENTIAL SCRN FRST TRIMEST Julia 12-30-2021 Date of Collection #1 12/29/21 [facility] Date Received 12/30/21 [facility] PERCY 07/06/22 [facility] Gestation at Date of Sample 13 weeks 0 days (by CRL scan) [facility] HCG [MoM] 1.06 MoM [facility] Insulin dependent diabetes None [facility] IVF No [facility] M[age] at [age]CY 29.8 [age] [facility] Nuchal Measurement 1.4 mm [facility] Nuchal Measurement MOM 0.86 MoM [facility] Optimal Draw Dates for Sample 2 01/19/2022 to 02/02/2022 [facility] Patient's Weight 178 lb. [facility] associated plasma protein A [MoM] 0.72 MoM [facility] Previous Down None [facility] Previous NTD None [facility] Sample #1 [id number] [facility] Scan Measure 67.2 mm on 12/29/21 [facility] SEQ1 Interpretation Final result pending second trimester sample Screen Negative, Final result pending second trimester sample [facility] Seq1 Scr Rsk Trsmy 13 [facility] Staff Review Reviewed by Nawaf Burkett MD, Ph.D ([id number]) [facility] Trisomy 18 risk Based on maternal age Qn (fetus) [facility] Trisomy 18 risk Qn (fetus) [facility] Trisomy 21 risk Based on maternal age Qn (fetus) [facility] Trisomy 21 risk Qn (fetus) [facility] NUCHAL TRANSLUCENCY WHIon [facility] URINE OB DIP B/Oon Glucose Ql (U) Negative Neg mg/dL [facility] Protein.monoclonal (U) [Mass/Vol] Negative Neg mg/dL [facility] Basic Metabolic Panelon 05-17 Anion gap [Moles/Vol] 6 mmol/L Normal 3-13 [facility] Comment on above: Performed By: #### B MP3, HEMOG #### [facility] [address] [address] Calcium [Mass/Vol] 9.6 mg/dL Normal 8.4-10.4 [facility] Comment on above: Performed By: #### B MP3, HEMOG #### [facility] [address] [place] [address] CO2 [Moles/Vol] 25 mmol/L Normal 22-30 [facility] Comment on above: Performed By: #### B MP3, HEMOG #### [facility] [address] [address] Creatinine [Mass/Vol] 0.65 mg/dL Normal 0.52-1.25 [facility] Comment on above: Performed By: #### B MP3, HEMOG #### [facility] [address] [address] eGFR OTHER > 90.0 Normal >60 [facility] Comment on above: Result Comment: KDIG O [...] renal tubular creatinine secretion. Performed By: #### B MP3, HEMOG #### [facility] [address] [place] [address] GFR/1.73 sq M.predicted among blacks MDRD (S/P/Bld) [Vol rate/Area] mL/min/{1.73_m2} Normal >60 [facility] Comment on above: Performed By: #### B MP3, HEMOG #### [facility] [address] [place] [address] Glucose [Mass/Vol] 107 mg/dL High 70-100 [facility] Comment on above: Performed By: #### Wendie MP3, HEMOG #### [facility] [address] [place] [address] Urea nitrogen [Mass/Vol] 7 mg/dL Low 9-20 [facility] Comment on above: Performed By: #### B MP3, HEMOG #### [facility] [address] [place] [address] Chloride [Moles/Vol] 108 mmol/L High 98-107 [facility] Comment on above: Performed By: #### B MP3, HEMOG #### [facility] [address] [place] [address] Potassium [Moles/Vol] 4.5 mmol/L Normal 3.5-5.1 [facility] Comment on above: Performed By: #### B MP3, HEMOG #### [facility] [address] [place] [address] Sodium [Moles/Vol] 138 mmol/L Normal 135-145 [facility] Comment on above: Performed By: #### B MP3, HEMOG #### [facility] [address] [place] [address] Anion gap [Moles/Vol] 6 mmol/L 3 - 13 mmol/L [facility] Work Phone: [phone] Calcium [Mass/Vol] 9.6 mg/dL 8.4 - 10. 4 mg/dL [facility] Work Phone: [phone] Chloride [Moles/Vol] 108 mmol/L High 98 - 10 7 mmol/L [facility] Work Phone: [phone] CO2 [Moles/Vol] 25 mmol/L 22 - 30 mmol/L [facility] Work Phone: [phone] Creatinine [Mass/Vol] 0.65 mg/dL 0.52 - 1.25 mg/dL [facility] Work Phone: [phone] EGFR IF NonAfrican Bahraini >90.0 >60 mL/min [facility] Work Phone: [phone] Comment on above: KDIGO guidelines pro vide [...] MDRD (S/P/Bld) [Vol rate/Area] mL/min/{1.73_m2} >60 mL/min [facility] Work Phone: [phone] Glucose [Mass/Vol] 107 mg/dL High 70 - 100 mg/dL [facility] Work Phone: [phone] Interpretation and review of laboratory results Abnormal [facility] Work Phone: [phone] Potassium [Moles/Vol] 4.5 mmol/L 3.5 - 5.1 mmol/L [facility] Work Phone: Sodium [Moles/Vol] 138 mmol/L 135 - 145 mmol/L [facility] Work Phone: Urea nitrogen (BldV) [Mass/Vol] 7 mg/dL Low 9 - 20 mg/dL [facility] Work Phone: Test Performed by [facility], [address] , [place], [place] [id number] [place] [address] LAB [facility] Work Phone: CT Head WO Contraston 2021 Patient Name: RG PULIDO Computed Tomography ACCESSION EXAM DATE/TIME PROCEDURE ORDERING PROVIDER [id number] 06/02/2021 17:[address] Head or Brain w/o MD GABY, HAKEEM Contrast CPT code 25244 Reason For Exam (CT Head or Brain [...] R Transcribed Date and Time: 06/02/2021 5:57 [facility] Joshua Juarez MD - 06/02/2021 Patient Name: RG KELLEY Computed Tomography ACCESSION EXAM DATE/TIME PROCEDURE ORDERING PROVIDER [id number] 06/02/2021 17:[address] Head or Brain w/o MD GABY, HAKEEM Contrast CPT code 12123 Reason For Exam (CT Head or Brain [...] R Transcribed Date and Time: 06/02/2021 5:57 [facility] Work Phone: Radiology Study observation (narrative) [facility] Work Phone: CT Head WO ContrastOrdered B y: Joshua Juarez on 06-02-2021 [facility] Work Phone: CT Head or Brain w/o Contras ton 06-02-2021 CT Head or Brain w/o Contrast [facility]: [id number] ACCESSION EXAM DATE/TIME PROCEDURE ORDERING PROVIDER [id number] 06/02/2021 17:[address] Head or Brain w/o MD GABY, HAKEEM Contrast CPT code 18561 Reason For Exam (CT Head or Brain [...] Transcribed Date and Time: 06/02/2021 5:57 Normal [facility] HCG,Urine Qualon 06-02-2021 Beta HCG ( test) Ql (U) Negative Normal Negative [facility] Comment on above: Result Comment: J Luis sotelo note: Very dilute urine specimens, as indicated by a low specific gravity, may not contain signs and displays sales representative levels of hCG. If is still suspected, a first morning urine specimen should be collected 48 hours later and tested. is the most common reason for HCG in urine, although choriocarcinoma, hydatidiform mole, and certain nontropho- blastic malignancies also result in detectable urinary HCG levels. Sensitivity = 20mIU/mL. Performed By: #### H CGUR #### [facility] [address] [place], [place] [id number] [place] [address] Urine Qual [place] 2021 Beta HCG ( test) Ql (U) Negative Negative NA [facility] Work Phone: Comment on above: Please note: Very di lute urine specimens, as indicated by a low specific gravity, may not contain signs and displays sales representative levels of hCG. If is still suspected, a first morning urine specimen should be collected 48 hours later and tested. is the most common reason for HCG in urine, although choriocarcinoma, hydatidiform mole, and certain nontropho- blastic malignancies also result in detectable urinary HCG levels. Sensitivity = 20mIU/mL. Test Performed by [facility], [address] , [address] LAB [facility] Work Phone: Hemogramon 06-02-2021 Erythrocyte distribution width (RBC) [Ratio] 13.8 % Normal 11.5-14.5 [facility] Comment on above: Performed By: #### B MP3, HEMOG #### [facility] [address] [place] [address] Hematocrit (Bld) [Volume fraction] 37.3 % Normal 35.0-47.0 [facility] Comment on above: Performed By: #### B MP3, HEMOG #### [facility] [address] [place] [address] Hemoglobin (Bld) [Mass/Vol] 12.4 g/dL Normal 11.7-16.0 [facility] Comment on above: Performed By: #### Wendie LATHAM3, HEMOG #### [facility] [address] [place] [address] MCH (RBC) [Entitic mass] 26.3 pg Normal 26.0-34.0 [facility] Comment on above: Performed By: #### Wendie LATHAM3, HEMOG #### [facility] [address] [place] [address] MCHC 33.2 % Normal 32.0-36.0 [facility] Comment on above: Performed By: #### Wendie LATHAM3, HEMOG #### [facility] [address] [place] [address] MCV (RBC) [Entitic vol] 79.2 fL Normal 79.0-98.0 [facility] Comment on above: Performed By: #### Wendie MCDONALD, HEMOG #### [facility] [address] [place] [address] Platelet mean volume (Bld) [Entitic vol] 7.3 fL Low 7.4-10.4 [facility] Comment on above: Performed By: #### Wendie MCDONALD, HEMOG #### [facility] [address] [place] [address] Platelets (Bld) [#/Vol] 296 10*3/uL Normal 140-440 [facility] Comment on above: Performed By: #### Wendie LATHAM3, HEMOG #### [facility] [address] [place] [address] RBC (Bld) [#/Vol] 4.71 10*6/uL Normal 3.80-5.20 [facility] Comment on above: Performed By: #### Wendie LATHAM3, HEMOG #### [facility] [address] [place] [address] WBC (Bld) [#/Vol] 7.7 10*3/uL Normal 3.6-10.7 [facility] Comment on above: Performed By: #### Wendie MP3, HEMOG #### [facility] [address] [place] [address] Hemogram (CBC)on 06-02-2021 Hematocrit (Bld) [Volume fraction] 37.3 % 35.0 - 47.0 % [facility] Work Phone: [phone] Hemoglobin.gastrointes tinal spec 1 Ql (Stl) 12.4 g/dL 11.7 - 16.0 g/dL [facility] Work Phone: [phone] Interpretation and review of laboratory results Abnormal [facility] Work Phone: [phone] MCH (RBC) [Entitic mass] 26.3 pg 26.0 - 34.0 pg [facility] Work Phone: [phone] MCHC (RBC) [Mass/Vol] 33.2 % 32.0 - 36.0 % [facility] Work Phone: [phone] MCV (RBC) [Entitic vol] 79.2 fL 79.0 - 98.0 fL [facility] Work Phone: [phone] Platelet distribution width (Bld) [Ratio] 13.8 % 11.5 - 14.5 % [facility] Work Phone: [phone] Platelet mean volume (Bld) [Entitic vol] 7.3 fL Low 7.4 - 10.4 fL [facility] Work Phone: [phone] Platelets (Bld) [#/Vol] 296 10*3/uL 140 - 440 10*3/uL [facility] Work Phone: [phone] RBC (Bld) [#/Vol] 4.71 10*6/uL 3.80 - 5.2 0 10*6/uL [facility] Work Phone: [phone] WBC (Bld) [#/Vol] 7.7 10*3/uL 3.6 - 10.7 10*3/uL [facility] [employer] Work Phone: [phone] Test Performed by [facility], [address] , [place], [place] [address] [facility] Work Phone: [phone] CULTURE URINEon 04-21-2021 CULTURE URINE CULTURE URINE --> Status: F No growth (<1,000 CFU/ml). Normal [facility] Comment on above: Performed By: #### C /UR #### [facility] [address] [place] [address] Op Noteon 04-21-2021 Op Note PATIENT: ROB KELLEY ADMISSION DATE: 04/20/2021 SURGERY DATE: 04/20/2021 DATE OF : 1990 AGE: 30 ADMITTING PHYSICIAN: Willam Benjamin MD ATTENDING PHYSICIAN: Willam Benjamin MD DICTATING PHYSICIAN: Willam Benjamin MD OPERATIVE RECORD Procedure: 1. CYSTOSCOPY. 2. RETROGRADE PYELOGRAPHY. 3. BLADDER HYDRODISTENTION. 4. DMSO INSTILLATION. Preoperative Diagnosis: Frequency, urgency and flank pain. Postoperative Diagnoses: 1. Frequency, urgency and flank pain. 2. Interstitial cystitis. Anesthesia: General. Business Communications Instructor: None. Findings: This 30-year-old woman delivered a [...] patient was sterilely prepped and draped. A 21-Greenlandic Storz cystoscope was inserted into the bladder [...] area in stable condition. [employer] Job ID: [id number] Willam Benjamin MD DOD:04/20/2021 11:42 P /dsk DOT:04/21/2021 09:56 A Job Number: [id number] Document Number: [id number] cc: Willam Benjamin MD [address] [place] [address] CR Urography Retrograde w/ + w/o KUBon 04-20-2021 CR Urography Retrograde w/ + w/o KUB Patient Name: RG KELLEY Diagnostic Radiology ACCESSION EXAM DATE/TIME PROCEDURE ORDERING PROVIDER [id number] 04/20/2021 13:30 EST CR Urography Retrograde WILLAM BENJAMIN w/ + w/o KUB CPT code 35012 Reason For Exam (CR Urography Retrograde w/ [...] Transcribed Date and Time: 04/22/2021 8:05 Normal [id number] , urine POCTon 02-0 Beta HCG ( test) Ql (U) Negative Negative [facility] Work Phone: [phone] Beta HCG ( test) Ql (U) [id number] [facility] Work Phone: [phone] Interpretation and review of laboratory results Normal [facility] Work Phone: [phone] Negative QC Pass/Fail Pass [facility] Work Phone: [phone] Positive QC Pass/Fail Pass [facility] Work Phone: [phone] [facility] Work Phone: [phone] CBC Auto Differentialon 03-0 Absolute Baso # 0.3 10*3/uL High 0 - 0.2 10*3/uL [facility] Work Phone: [phone] Absolute Neut # 7.1 10*3/uL High 1.8 - 7 10*3/uL [facility] Work Phone: [phone] Basophils/100 WBC (Bld) 2.8 % High 0 - 2 % [facility] Work Phone: [phone] Eosinophils (Bld) [#/Vol] 0.1 10*3/uL 0 - 0.5 10*3/uL [facility] Work Phone: [phone] Eosinophils/100 WBC (Bld) 1.3 % 1 - 6 % [facility] Work Phone: [phone] Erythrocyte distribution width (RBC) [Ratio] 13.0 % 11.5 - 14.5 % [employer] Work Phone: [phone] Granulocytes/100 WBC (Bld) 78.1 % 40 - 80 % [facility] Work Phone: [phone] Hematocrit (Bld) [Volume fraction] 37.0 % 35 - 47 % [facility] Work Phone: [phone] Hemoglobin (Bld) [Mass/Vol] 12.0 g/dL 11.7 - 16 g/dL [employer] [facility] Work Phone: [phone] Interpretation and review of laboratory results Abnormal [facility] Work Phone: [phone] Lymphocytes (Bld) [#/Vol] 1.2 10*3/uL 1 - 4.3 10*3/uL [facility] Work Phone: [phone] Lymphocytes/100 WBC (Bld) 13.5 % Low 20 - 40 % [facility] Work Phone: [phone] MCH (RBC) [Entitic mass] 26.1 pg 26 - 34 pg [facility] Work Phone: [phone] MCHC (RBC) [Mass/Vol] 32.4 % 32 - 36 % [facility] Work Phone: [phone] MCV (RBC) [Entitic vol] 80.6 fL 79 - 98 fL [facility] Work Phone: [phone] Monocytes (Bld) [#/Vol] 0.4 10*3/uL 0 - 0.8 10*3/uL [facility] Work Phone: [phone] Monocytes/100 WBC (Bld) 4.3 % 2 - 10 % [facility] Work Phone: [phone] Platelet mean volume (Bld) [Entitic vol] 7.3 fL Low 7.4 - 10.4 fL [facility] Work Phone: [phone] Platelets (Bld) [#/Vol] 281 10*3/uL 140 - 440 10*3/uL [facility] Work Phone: [phone] RBC (Bld) [#/Vol] 4.59 10*6/uL 3.8 - 5.2 10*6/uL [facility] Work Phone: [phone] WBC (Bld) [#/Vol] 9.1 10*3/uL 3.6 - 10.7 10*3/uL [facility] Work Phone: [phone] Test Performed by [facility], [address] , [place], [place] [address] Work Phone: [phone] Comprehensive Metabolic Pane marcella 05-17-2020 Albumin [Mass/Vol] 4.5 g/dL 3.5 - 5 g/dL [facility] Work Phone: [phone] ALP [Catalytic activity/Vol] 47 U/L 38 - 126 U/L [facility] Work Phone: [phone] ALT [Catalytic activity/Vol] 12 U/L 0 - 34 U/L [facility] Work Phone: [phone] Comment on above: The ALT test is perf ormed by an updated assay method. Please note that the reference intervals have been changed and are now sex specific. Anion gap [Moles/Vol] 11 mmol/L 3 - 13 mmol/L [facility] Work Phone: AST [Catalytic activity/Vol] 18 U/L 15 - 46 U/L [facility] Work Phone: Bilirubin Ql (U) 0.3 mg/dL 0.2 - 1.3 mg/dL [facility] Work Phone: Calcium [Mass/Vol] 9.6 mg/dL 8.4 - 10. 4 mg/dL [facility] Work Phone: Chloride [Moles/Vol] 106 mmol/L 98 - 10 7 mmol/L [facility] Work Phone: CO2 [Moles/Vol] 21 mmol/L Low 22 - 30 mmol/L [facility] [facility] Work Phone: Creatinine [Mass/Vol] 0.79 mg/dL 0.52 - 1.25 mg/dL [facility] Work Phone: EGFR IF NonAfrican Bahraini >90.0 >60 mL/min [facility] Work Phone: Comment on above: KDIGO guidelines [...] MDRD (S/P/Bld) [Vol rate/Area] mL/min/{1.73_m2} >60 mL/min [facility] Work Phone: Glucose [Mass/Vol] 96 mg/dL 70 - 100 mg/dL [facility] Work Phone: Interpretation and review of laboratory results Abnormal [facility] Work Phone: Potassium [Moles/Vol] 4.5 mmol/L 3.5 - 5.1 mmol/L [facility] Work Phone: Protein [Mass/Vol] 7.2 g/dL 6.3 - 8.2 g/dL [facility] Work Phone: Sodium [Moles/Vol] 138 mmol/L 135 - 145 mmol/L [facility] Work Phone: Urea nitrogen [Mass/Vol] 10 mg/dL 7 - 20 mg/dL [facility] Work Phone: Test Performed by [facility], [facility] Hospital[facility]water[facility]ique Hernandez [address] Work Phone: CT LOWER EXTREMITY LEFT Jordy [facility] 04-06-2020 Patient Name: RG PULIDO Computed Tomography ACCESSION EXAM DATE/TIME PROCEDURE ORDERING PROVIDER [id number] 04/06/2020 08:[address] Low Ext w/o Contrast MORRO LANDAVERDE Left CPT code 39650 Reason For Exam (CT Low Ext w/o [...] joint measuring up to 8mm. An additional linear-nondisplaced fracture extends along the lateral body cortex, [...] the level of the talonavicular joint. Additional linear-nondisplaced fracture extends along the lateral body cortex, extending inferiorly to its plantar Computed Tomography Report cortex. Mildly displaced fracture of the dorsal calcaneus, with extension to both the calcaneocuboid and anterior subtalar joint. Report Dictated on --- Final --- Dictating Physician: MD MALONEY JASON Signed Date and Time: 04/06/2020 9:26 am Signed by: MD MALONEY JASON Transcribed Date and Time: 04/06/2020 9:27 [facility], [facility] Incoming Radiology Results From [facility] - 04/06/2020 9:27 AM EST Patient Name: RG KELLEY [facility]#: [id number] Computed Tomography ACCESSION EXAM DATE/TIME PROCEDURE ORDERING PROVIDER [id number] 04/06/2020 08:[address] Low Ext w/o Contrast MORRO LANDAVERDE Left CPT code 23089 Reason For Exam (CT Low Ext w/o [...] joint measuring up to 8mm. An additional linear-nondisplaced fracture extends along the lateral body cortex, [...] the level of the talonavicular joint. Additional linear-nondisplaced fracture extends along the lateral body cortex, extending inferiorly to its plantar Computed Tomography Report cortex. Mildly displaced fracture of the dorsal calcaneus, with extension to both the calcaneocuboid and anterior subtalar joint. Report Dictated on --- Final --- Dictating Physician: MD MALONEY JASON Signed Date and Time: 04/06/2020 9:26 am Signed by: MD MALONEY JASON Transcribed Date and Time: 04/06/2020 9:27 [place], [place] XR ANKLE LEFT (MIN 3 VIEWS)o n 03-27-2020 Patient Name: RG PULIDO Diagnostic Radiology ACCESSION EXAM DATE/TIME PROCEDURE ORDERING PROVIDER [id number] 03/27/2020 13:45 EST CR Ankle 3+ Views Left YANELY SOLANO DANIEL M CPT code 29672 Reason For Exam (CR Ankle 3+ Views [...] JEFFREY Transcribed Date and Time: 03/27/2020 2:27 [place], [place] [facility] Incoming Radiology Results From [facility] - 03/27/2020 2:27 PM EST Patient Name: RG KELLEY Diagnostic Radiology ACCESSION EXAM DATE/TIME PROCEDURE ORDERING PROVIDER [id number] 03/27/2020 13:45 EST CR Ankle 3+ Views Left YANELY SOLANO DANIEL M CPT code 80923 Reason For Exam (CR Ankle 3+ Views [...] JEFFREY Transcribed Date and Time: 03/27/2020 2:27 [facility], [place] XR FOOT LEFT (MIN 3 VIEWS)on 03-27-2020 Patient Name: RG PULIDO Diagnostic Radiology ACCESSION EXAM DATE/TIME PROCEDURE ORDERING PROVIDER [id number] 03/27/2020 13:45 EST CR Foot Complete 3+ YANELY SOLANO DANIEL M Views Left CPT code 96699 Reason For Exam (CR Foot Complete 3+ [...] JEFFREY Transcribed Date and Time: 03/27/2020 2:27 [place], [place] [facility] Incoming Radiology Results From [facility] - 03/27/2020 2:27 PM EST Patient Name: RG KELLEY Diagnostic Radiology ACCESSION EXAM DATE/TIME PROCEDURE ORDERING PROVIDER [id number] 03/27/2020 13:45 EST CR Foot Complete 3+ YANELY SOLANO, GARTH M Views Left CPT code 58776 Reason For Exam (CR Foot Complete 3+ [...] JEFFREY Transcribed Date and Time: 03/27/2020 2:27 [place], [place] US BREAST LIMITED LEFTon Patient Name: RG PULIDO ---Ultrasound--- Exam Date/Time 08/08/2019 08:49:50 EDT Exam US Breast Limited Left Ordering Physician MD ADAMS DIANA CHRISTINE Accession Number [id number] CPT4 Codes 88621 () Reason For Exam Plap lump Report [...] 08/08/2019 8:41 am Signed by: MD KELSI, [facility]Z [facility]LENA [facility] - 08/08/2019 12:59 PM EDT Patient Name: RG KELLEY ---Ultrasound--- Exam Date/Time 08/08/2019 08:49:50 EDT Exam US Breast Limited Left Ordering Physician MD KORI, CHRIS VERDIN Accession Number [id number] CPT4 Codes 84855 () Reason For Exam Plap lump Report [...] 08/08/2019 8:41 am Signed by: MD KELSI, LUZ ELENA [facility], STEVEN CT ABD/PEL W IVCONon 020 CT ABD/PEL W IVCON * * *Final Report* * * DATE OF EXAM: Mar 20 2019 11:49AM [facility] 0530 - CT ABD/PEL W IVCON / [...] Lymph nodes: No abdominal or pelvic lymphadenopathy. Mesentery/Peritoneum: No ascites or mass. Retroperitoneum: No mass. [...] scar, which may related to prior pyelonephritis. Client Service Administrator: [facility] Transcribe Date/Time: Mar 20 2019 11:57A Dictated by : GARTH THOMAS MD This examination was interpreted and the report reviewed and electronically signed by: GARTH THOMAS MD on Mar 20 2019 12:04PM EST Normal [facility] Urinalysis Routineon 020 Appearance (U) CLEAR Normal [facility] Comment on above: Performed By: #### M URIN #### [place] [address] Bacteria LM.HPF (Urine sed) [#/Area] 2+ Abnormal None [facility] Comment on above: Performed By: #### M URIN #### [facility] [address] [place] [address] Color (U) YELLOW Normal [facility] Comment on above: Performed By: #### M URIN #### [facility] [address] [place] [address] Ep Cells Urine 2-5 Normal 0-[address] [facility] Comment on above: Performed By: #### M URIN #### [facility] [address] [place] [address] RBC LM.HPF (Urine sed) [#/Area] 4-6 Abnormal 0-[address] [facility] Comment on above: Performed By: #### M URIN #### [facility] [address] [place] [address] WBC LM.HPF (Urine sed) [#/Area] 6-12 Abnormal 0-[address] [facility] Comment on above: Performed By: #### M URIN #### [facility] [address] [place] [address] Bilirubin Urine Negative Normal Negative [facility] Comment on above: Performed By: #### M URIN #### [facility] [address] [place] [address] Glucose Ql (U) Negative Normal Negative [facility] Comment on above: Performed By: #### M URIN #### [facility] [address] [place] [address] Hemoglobin,Urine Negative Normal Negative [facility] Comment on above: Performed By: #### M URIN #### [facility] [address] [place] [address] Ketone Urine Negative Normal Negative [facility] Comment on above: Performed By: #### M URIN #### [facility] [address] [place] [address] Leukocytes Esterase Negative Normal Negative [facility] Comment on above: Performed By: #### M URIN #### [facility] [address] [place] [address] Nitrites Urine Negative Normal Negative [facility] Comment on above: Performed By: #### M URIN #### [facility] [address] [place] [address] pH (U) 5.5 [pH] Normal 5.0-8.[address] [facility] Comment on above: Performed By: #### M URIN #### [facility] [address] [place] [address] Protein (U) [Mass/Vol] Negative Normal Negative [facility] Comment on above: Performed By: #### M URIN #### [facility] [address] [place], [place] [address] Specific [place], Ur 1.020 Normal 1.005-1.030 [facility] Comment on above: Performed By: #### M URIN #### [facility] [address] [place] [id number] Urobilinogen,Ur 0.2 EU/dL Normal 0.2-1.[address] [facility] Comment on above: Performed By: #### M URIN #### [facility] [address] [place] [id number] Urine HCG, Qual.on 0 Beta HCG ( test) Ql (U) Negative Normal Negative [facility] Comment on above: Performed By: #### M HCGU #### [facility] [address] [place] [id number] CBC Auto Differentialon 11-17 Absolute Baso # 0.0 10*3/uL 0 - 0.2 10*3/uL [place] Absolute Neut # 4.9 10*3/uL 1.8 - 7 10*3/uL [place] Basophils/100 WBC (Bld) 0.2 % 0 - 2 % [place] Eosinophils (Bld) [#/Vol] 0.2 10*3/uL 0 - 0.5 10*3/uL [place] Eosinophils/100 WBC (Bld) 2.4 % 1 - 6 % [place] Erythrocyte distribution width (RBC) [Ratio] 14.1 % 11.5 - 14.5 % [place] Granulocytes/100 WBC (Bld) 58.5 % 40 - 80 % [place] Hematocrit (Bld) [Volume fraction] 37.9 % 35 - 47 % [place] Hemoglobin (Bld) [Mass/Vol] 12.4 g/dL 11.7 - 16 g/dL [place] Interpretation and review of laboratory results Abnormal [place] Lymphocytes (Bld) [#/Vol] 2.9 10*3/uL 1 - 4.3 10*3/uL [place] Lymphocytes/100 WBC (Bld) 35.1 % 20 - 40 % [place] MCH (RBC) [Entitic mass] 26.3 pg 26 - 34 pg [place] MCHC (RBC) [Mass/Vol] 32.8 % 32 - 36 % [place], [place] MCV (RBC) [Entitic vol] 80.1 fL 79 - 98 fL [place] Monocytes (Bld) [#/Vol] 0.3 10*3/uL 0 - 0.8 10*3/uL [place] Monocytes/100 WBC (Bld) 3.8 % 2 - 10 % [place] Platelet mean volume (Bld) [Entitic vol] 7.1 fL Low 7.4 - 10.4 fL [place] Platelets (Bld) [#/Vol] 360 10*3/uL 140 - 440 10*3/uL [place] RBC (Bld) [#/Vol] 4.73 10*6/uL 3.8 - 5.2 10*6/uL [place] WBC (Bld) [#/Vol] 8.3 10*3/uL 3.6 - 10.7 10*3/uL [place] Test Performed by [facility], [facility] Hospital[facility]mund[facility]ominique Hernandez , [address] Comprehensive Metabolic Pane marcella 11-28-2018 Albumin [Mass/Vol] 4.6 g/dL 3.5 - 5 g/dL [place], [place] ALP [Catalytic activity/Vol] 60 U/L 38 - 126 U/L [place] ALT [Catalytic activity/Vol] 18 U/L 13 - 69 U/L [place] Anion gap [Moles/Vol] 12 mmol/L [place] AST [Catalytic activity/Vol] 19 U/L 15 - 46 U/L [place] Bilirubin Ql (U) 0.1 mg/dL Low 0.2 - 1.3 mg/dL [place] Calcium [Mass/Vol] 9.7 mg/dL 8.4 - 10. 4 mg/dL [place] Chloride [Moles/Vol] 106 mmol/L 98 - 10 7 mmol/L [place] CO2 [Moles/Vol] 24 mmol/L 22 - 30 mmol/L [place] Creatinine [Mass/Vol] 0.61 mg/dL 0.52 - 1.25 mg/dL [place] EGFR IF NonAfrican Bahraini >60.0 >60 mL/min [place] Comment on above: Source- MDRD equatio n with creatinine calibration to IDMS(NKDEP) eGFR not recommended for drug dose adjustment GFR/1.73 sq M predicted among blacks MDRD (S/P/Bld) [Vol rate/Area] mL/min/{1.73_m2} >60 mL/min [place] Glucose [Mass/Vol] 86 mg/dL 70 - 100 mg/dL [place], [place] Interpretation and review of laboratory results Abnormal [place] Potassium [Moles/Vol] 4.1 mmol/L 3.5 - 5.1 mmol/L [place] Protein [Mass/Vol] 7.5 g/dL 6.3 - 8.2 g/dL [place], [place] Sodium [Moles/Vol] 142 mmol/L 135 - 145 mmol/L [place] Urea nitrogen [Mass/Vol] 9 mg/dL 7 - 20 mg/dL [place] Test Performed by [facility], [facility] Edmundo Hernandez , [address] Vital Signs Date Time Vital Sign Value Performing Clinician Facility 10-23-2024 11:58-0400 Body height 172.7 cm [place] Heindel DO Work Phone: [facility] 10-23-2024 11:58-0400 Body mass index (BMI) [Ratio] 26.15 kg/m2 [place] Heindel DO Work Phone: [facility] 10-23-2024 11:58-0400 Body weight 78.02 kg [place] Heindel DO Work Phone: [facility] 10-23-2024 11:58-0400 Diastolic blood pressure 77 mm[Hg] [place] Heindel DO Work Phone: [id number] 10-23-2024 11:58-0400 Heart rate 77 /min [place] Heindel DO Work Phone: [id number] 10-23-2024 11:58-0400 Systolic blood pressure 110 mm[Hg] [place] Heindel DO Work Phone: [id number] 05-27-2024 12:07-0400 Body height 172.7 cm Chris Adams MD Work Phone: [id number] 05-27-2024 12:07-0400 Body mass index (BMI) [Ratio] 29.65 kg/m2 Chris Adams MD Work Phone: [id number] 05-27-2024 12:07-0400 Body weight 88.45 kg Chris Adams MD Work Phone: [id number] 05-27-2024 12:07-0400 Diastolic blood pressure 78 mm[Hg] Chris Adams MD Work Phone: [id number] 05-27-2024 12:07-0400 Systolic blood pressure 112 mm[Hg] Chris Adams MD Work Phone: [id number] 03-05-2024 10:20-0500 Body height 172.7 cm Dyan Garcia MD Work Phone: [id number] 03-05-2024 10:20-0500 Body mass index (BMI) [Ratio] 29.65 kg/m2 Dyan Garcia MD Work Phone: [id number] 03-05-2024 10:20-0500 Body weight 88.45 kg Dyan Garcia MD Work Phone: [id number] 03-05-2024 10:20-0500 Diastolic blood pressure 80 mm[Hg] Dyan Garcia MD Work Phone: [id number] 03-05-2024 10:20-0500 Heart rate 89 /min Dyan Garcia MD Work Phone: [id number] 03-05-2024 10:20-0500 Systolic blood pressure 120 mm[Hg] Dyan Garcia MD Work Phone: [id number] 02-06-2024 09:54-0500 Body height 172.7 cm Jeanie Prasad MD Work Phone: [id number] 02-06-2024 09:54-0500 Body mass index (BMI) [Ratio] 27.98 kg/m2 Jeanie Prasad MD Work Phone: [id number] 02-06-2024 09:54-0500 Body weight 83.46 kg Jeanie Prasad MD Work Phone: [id number] 02-06-2024 09:54-0500 Diastolic blood pressure 79 mm[Hg] Jeanie Prasad MD Work Phone: [id number] 02-06-2024 09:54-0500 Heart rate 86 /min Jeanie Prasad MD Work Phone: [id number] 02-06-2024 09:54-0500 Systolic blood pressure 113 mm[Hg] Jeanie Prasad MD Work Phone: [id number] 01-02-2024 15:27-0400 Body height 172.7 cm Chris Adams MD Work Phone: [id number] 01-02-2024 15:27-0400 Body mass index (BMI) [Ratio] 26.15 kg/m2 Chris Adams MD Work Phone: [id number] 01-02-2024 15:27-0400 Body weight 78.02 kg Chris Adams MD Work Phone: [id number] 01-02-2024 15:27-0400 Diastolic blood pressure 70 mm[Hg] Chris Adams MD Work Phone: [id number] 01-02-2024 15:27-0400 Systolic blood pressure 118 mm[Hg] Chris Adams MD Work Phone: [id number] 12-21-2023 10:19-0400 Body height 172.7 cm Jeanie Prasad MD Work Phone: [facility] 12-21-2023 10:19-0400 Body mass index (BMI) [Ratio] 26.15 kg/m2 Jeanie Prasad MD Work Phone: [facility] 12-21-2023 10:19-0400 Body weight 78.02 kg Jeanie Prasad MD Work Phone: [facility] 12-21-2023 10:19-0400 Diastolic blood pressure 84 mm[Hg] Jeanie Prasad MD Work Phone: [facility] 12-21-2023 10:19-0400 Heart rate 78 /min Jeanie Prasad MD Work Phone: [facility] 12-21-2023 10:19-0400 Systolic blood pressure 130 mm[Hg] Jeanie Prasad MD Work Phone: [facility] 02-28-2023 05:43-0500 Body height 172.72 cm No Primary Care Physician [facility] 02-26-2023 10:04-0500 Body mass index (BMI) [Ratio] 25.5 kg/m2 No Primary Care Physician [facility] 02-26-2023 10:04-0500 Body weight 76.26 kg No Primary Care Physician [facility] 02-26-2023 10:04-0500 Diastolic blood pressure 72 mm[Hg] No Primary Care Physician [facility] 02-26-2023 10:04-0500 Systolic blood pressure 124 mm[Hg] No Primary Care Physician [facility] 11-23-2022 11:35-0400 Body height 172.7 cm Lynne Hale [employer] Work Phone: [facility] 11-23-2022 11:35-0400 Body mass index (BMI) [Ratio] 26.09 kg/m2 Lynne Hale [employer] Work Phone: [facility] 11-23-2022 11:35-0400 Body temperature 97.39 [degF] Lynne Vegaser [employer] Work Phone: [facility] 11-23-2022 11:35-0400 Body weight 77.84 kg Lynne Hale APRN - YANELY Work Phone: [facility] 11-23-2022 11:35-0400 Diastolic blood pressure 70 mm[Hg] Lynne Hale APRN - [employer]UN[employer] OFFICER Work Phone: [facility] 11-23-2022 11:35-0400 Heart rate 85 /min Lynne Hale APRN - [employer]UN[employer]IC[employer] Work Phone: [facility] 11-23-2022 11:35-0400 SaO2% (BldA) [Mass fraction] 97 % Lynne Hale APRN - [employer] OFFICER Work Phone: [facility] 11-23-2022 11:35-0400 Systolic blood pressure 114 mm[Hg] Lynne Hale APRN - [employer]UN[employer]ICER Work Phone: [facility] 10-26-2022 13:35-0400 Body height 172.[address] Hermelindo Presley Work Phone: [facility] 10-26-2022 13:33-0400 Body mass index (BMI) [Ratio] 26.4 kg/m2 Dr. Hermelindo Presley Work Phone: [facility] 10-26-2022 13:33-0400 Body weight 79.[address] Hermelindo Presley Work Phone: [facility] 10-26-2022 13:33-0400 Diastolic blood pressure 69 mm[Hg] Dr. Hermelindo Presley Work Phone: [facility] 10-26-2022 13:33-0400 Systolic blood pressure 104 mm[Hg] Dr. Hermelindo Presley Work Phone: [facility] 10-13-2022 12:03-0400 Body height 172.7 cm Mera ANTHONYM Work Phone: [facility] 10-13-2022 12:03-0400 Body mass index (BMI) [Ratio] 26.91 kg/m2 Mera ANTHONYM Work Phone: [facility] 10-13-2022 12:03-0400 Body weight 80.29 kg Mera Darlene trejo DPM Work Phone: [facility] 10-07-2022 23:35-0400 Diastolic blood pressure 80 mm[Hg] Dr. Hermelindo Presley Work Phone: [facility] 10-07-2022 23:35-0400 Heart rate 78 /min Dr. Hermelindo Presley Work Phone: [facility] 10-07-2022 23:35-0400 Respiratory rate 16 /min Dr. Hermelindo Presley Work Phone: [facility] 10-07-2022 23:35-0400 SaO2% (BldA) [Mass fraction] 98 % Dr. Hermelindo Presley Work Phone: [facility] 10-07-2022 23:35-0400 Systolic blood pressure 112 mm[Hg] Dr. Hermelindo Presley Work Phone: [facility] 10-07-2022 21:56-0400 Body mass index (BMI) [Ratio] 24.5 kg/m2 Dr. Hermelindo Presley Work Phone: [facility] 10-07-2022 21:56-0400 Body weight [address] Hermelindo Presley Work Phone: [facility] 10-07-2022 21:29-0400 Body temperature 97.7 [degF] Dr. Hermelindo Presley Work Phone: [facility] 08-31-2022 15:51-0400 Body weight 84.37 kg Amanda Alcaraz MD Work Phone: [facility] 08-31-2022 15:51-0400 Diastolic blood pressure 60 mm[Hg] Amanda Alcaraz MD Work Phone: [facility] 08-31-2022 15:51-0400 Systolic blood pressure 102 mm[Hg] Amanda Alcaraz MD Work Phone: [facility] 07-27-2022 13:50-0400 Body mass index (BMI) [Ratio] 29.5 kg/m2 Krishna [employer] DO Work Phone: [id number] 07-27-2022 13:50-0400 Body temperature 96.49 [degF] [employer] Work Phone: [id number] 07-27-2022 13:50-0400 Body weight 88 kg Krishna [employer] DO Work Phone: [id number] 07-27-2022 13:50-0400 Diastolic blood pressure 84 mm[Hg] [employer] Work Phone: [id number] 07-27-2022 13:50-0400 Heart rate 80 /min [employer] Work Phone: [id number] 07-27-2022 13:50-0400 Systolic blood pressure 127 mm[Hg] [employer] Work Phone: [id number] 07-19-2022 09:07-0400 Body temperature 98.1 [degF] Marie Muñoz MD Work Phone: [id number] 07-19-2022 09:07-0400 Diastolic blood pressure 71 mm[Hg] Marie Muñoz MD Work Phone: [id number] 07-19-2022 09:07-0400 Heart rate 101 /min Marie Muñoz MD Work Phone: [email or web address] [id number] 07-19-2022 09:07-0400 Respiratory rate 20 /min Marie Muñoz MD Work Phone: [id number] 07-19-2022 09:07-0400 SaO2% (BldA) [Mass fraction] 96 % Marie Muñoz MD Work Phone: [id number] 07-19-2022 09:07-0400 Systolic blood pressure 117 mm[Hg] Marie Muñoz MD Work Phone: [id number] 07-16-2022 01:29-0400 Body height 172.7 cm Marie Muñoz MD Work Phone: [facility] 07-16-2022 01:29-0400 Body mass index (BMI) [Ratio] 32.69 kg/m2 Marie Muñoz MD Work Phone: [facility] 07-16-2022 01:29-0400 Body weight 97.52 kg Marie Muñoz MD Work Phone: [facility] 06-29-2022 15:21-0400 Body weight 97.52 kg Farida Malin [employer] Work Phone: [facility] 06-29-2022 15:21-0400 Diastolic blood pressure 62 mm[Hg] Farida Plotts [employer] Work Phone: [facility] 06-29-2022 15:21-0400 Systolic blood pressure 112 mm[Hg] Farida [employer] Work Phone: [facility] 06-22-2022 11:48-0400 Body weight 97.52 kg Hannah Stauffer MD Work Phone: [facility] 06-22-2022 11:48-0400 Diastolic blood pressure 74 mm[Hg] Hannah Stauffer MD Work Phone: [facility] 06-22-2022 11:48-0400 Systolic blood pressure 110 mm[Hg] Hannah Stauffer MD Work Phone: [facility] 06-16-2022 14:52-0400 Body weight 97.8 kg Dominga Raymond MD Work Phone: [facility] 06-16-2022 14:52-0400 Diastolic blood pressure 68 mm[Hg] Dominga Raymond MD Work Phone: [facility] 06-16-2022 14:52-0400 Systolic blood pressure 110 mm[Hg] Dominga Raymond MD Work Phone: [facility] 06-09-2022 14:19-0400 Body weight 96.62 kg Veronica Machuca [employer] Work Phone: [facility] 06-09-2022 14:19-0400 Diastolic blood pressure 68 mm[Hg] Veronica Machuca APRN.CNM Work Phone: [facility] 06-09-2022 14:19-0400 Systolic blood pressure 110 mm[Hg] Veronica Machuca APRN.CNM Work Phone: [facility] 04-23-2022 17:31-0500 Respiratory rate 16 /min [facility] 04-23-2022 16:56-0500 Diastolic blood pressure 74 mm[Hg] [facility] 04-23-2022 16:56-0500 Heart rate 96 /min [facility] 04-23-2022 16:56-0500 SaO2% (BldA) [Mass fraction] 99 % [facility] 04-23-2022 16:56-0500 Systolic blood pressure 124 mm[Hg] [facility] 04-23-2022 15:00-0500 Body height 172.[address] [facility] 04-23-2022 15:00-0500 Body mass index (BMI) [Ratio] 31 kg/m2 [facility] 04-23-2022 15:00-0500 Body temperature 97 [degF] [facility] 04-23-2022 15:00-0500 Body weight 92.[address] [facility] 04-21-2022 14:10-0500 Body weight 90.54 kg Amanda Alcaraz MD Work Phone: [facility] 04-21-2022 14:10-0500 Diastolic blood pressure 70 mm[Hg] Amanda Alcaraz MD Work Phone: [facility] 04-21-2022 14:10-0500 Systolic blood pressure 104 mm[Hg] Amanda Alcaraz MD Work Phone: [facility] 04-10-2022 10:40-0500 Body weight 88.45 kg Beatrice Parisi DO Work Phone: [facility] 04-10-2022 10:40-0500 Diastolic blood pressure 77 mm[Hg] Beatrice Parisi DO Work Phone: [facility] 04-10-2022 10:40-0500 Heart rate 104 /min Beatrice Anguianode DO Work Phone: [facility] 04-10-2022 10:40-0500 SaO2% (BldA) [Mass fraction] 97 % Beatrice Anguianode DO Work Phone: [facility] 04-10-2022 10:40-0500 Systolic blood pressure 115 mm[Hg] Beatrice Parisi DO Work Phone: [facility] 02-27-2022 14:01-0500 Body weight 86.82 kg Amanda Alcaraz MD Work Phone: [facility] 02-27-2022 14:01-0500 Diastolic blood pressure 72 mm[Hg] Amanda Alcaraz MD Work Phone: [facility] 02-27-2022 14:01-0500 Systolic blood pressure 118 mm[Hg] Amanda Alcaraz MD Work Phone: [facility] 02-27-2022 10:11-0500 Body height 172.7 cm Cintia Ferris MD Work Phone: [facility] 02-27-2022 10:11-0500 Body weight 85.73 kg Cintia Ferris MD Work Phone: [facility] 12-29-2021 15:59-0400 Body weight 80.74 kg Amanda Alcaraz MD Work Phone: [facility] 12-29-2021 15:59-0400 Diastolic blood pressure 62 mm[Hg] Amanda Alcaraz MD Work Phone: [facility] 12-29-2021 15:59-0400 Systolic blood pressure 102 mm[Hg] Amanda Alcaraz MD Work Phone: [facility] 11-30-2021 11:52-0400 Body height 172.7 cm Amanda Alcaraz MD Work Phone: [facility] 11-30-2021 11:52-0400 Body weight 79.83 kg Amanda Alcaraz MD Work Phone: [facility] 11-30-2021 11:52-0400 Diastolic blood pressure 70 mm[Hg] Amanda Alcaraz MD Work Phone: [facility] 11-30-2021 11:52-0400 Systolic blood pressure 112 mm[Hg] Amanda Alcaraz MD Work Phone: [facility] 06-02-2021 17:45-0400 Diastolic blood pressure 82 mm[Hg] Hakeem Wright MD Work Phone: [facility] 06-02-2021 17:45-0400 Heart rate 66 /min Hakeem Wright MD Work Phone: [facility] 06-02-2021 17:45-0400 Respiratory rate 16 /min Hakeem Wright MD Work Phone: [facility] 06-02-2021 17:45-0400 SaO2% (BldA) [Mass fraction] 99 % Hakeem Wright MD Work Phone: [facility] 06-02-2021 17:45-0400 Systolic blood pressure 121 mm[Hg] Hakeem Wright MD Work Phone: [facility] 06-02-2021 16:35-0400 Body height 172.7 cm Hakeem Wright MD Work Phone: [facility] 06-02-2021 16:35-0400 Body mass index (BMI) [Ratio] 26.15 kg/m2 Hakeem Wright MD Work Phone: [facility] 06-02-2021 16:35-0400 Body temperature 98.8 [degF] Hakeem Wright MD Work Phone: [facility] 06-02-2021 16:35-0400 Body weight 78.02 kg Hakeem Wright MD Work Phone: [facility] 04-20-2021 14:10-0500 Diastolic blood pressure 74 mm[Hg] Willam Benjamin MD Work Phone: [facility] 04-20-2021 14:10-0500 Heart rate 60 /min Willam Benjamin MD Work Phone: [facility] 04-20-2021 14:10-0500 Respiratory rate 12 /min Willam Benjamin MD Work Phone: [facility] 04-20-2021 14:10-0500 SaO2% (BldA) [Mass fraction] 100 % Willam Benjamin MD Work Phone: [facility] 04-20-2021 14:10-0500 Systolic blood pressure 110 mm[Hg] Willam Benjamin MD Work Phone: [facility] 04-20-2021 13:41-0500 Body temperature 98.01 [degF] Willam Benjamin MD Work Phone: [facility] 04-20-2021 11:51-0500 Body height 172.7 cm Willam Benjamin MD Work Phone: [facility] 04-20-2021 11:51-0500 Body mass index (BMI) [Ratio] 26.61 kg/m2 Willam Benjamin MD Work Phone: [facility] 04-20-2021 11:51-0500 Body weight 79.38 kg Willam Benjamin MD Work Phone: [facility] 03-28-2020 13:43-0500 Body Temperature 98.2 [degF] [facility] [place] 03-28-2020 13:43-0500 BP Diastolic 64 mm[Hg] [facility] , [place] 03-28-2020 13:43-0500 BP Systolic 129 mm[Hg] [facility] , [place] 03-28-2020 13:43-0500 Pulse (Heart Rate) 86 /[facility] [place] 03-28-2020 13:43-0500 Pulse Oximetry 100 % [facility] , [place] 03-28-2020 13:43-0500 Respiratory Rate 12 /min Valeriano Hamilton [facility], [place] 03-27-2020 13:17-0500 BMI (Body Mass Index) 25.09 kg/m2 Chris Archuleta [facility], [place] 03-27-2020 13:17-0500 Body Temperature 98.4 [degF] [facility] [place] 03-27-2020 13:17-0500 Body weight 74.84 kg [facility] [place] 03-27-2020 13:17-0500 BP Diastolic 92 mm[Hg] [facility] [place], [place] 03-27-2020 13:17-0500 BP Systolic 122 mm[Hg] [facility] [place] 03-27-2020 13:17-0500 Height 172.7 cm [facility] [place] 03-27-2020 13:17-0500 Pulse (Heart Rate) 96 /min [facility] [place] 03-27-2020 13:17-0500 Pulse Oximetry 98 % [facility] [place] 03-27-2020 13:17-0500 Respiratory Rate 14 /min [facility] [place] Encounters Encounter Date Encounter Type Care Provider Facility Start: 01-06-2025 ambulatory Aline gomezy:[facility] Start: 12-30-2024 End: 12-30-2024 ambulatory Hannah CERVANTES Facility[facility] Start: 12-22-2024 Encounter for gynecological examination (general) (routine) with abnormal findings Aline Doll [facility] Start: 12-22-2024 End: 12-22-2024 ambulatory Radha Dayton Facility:[facility] Start: 11-24-2024 ambulatory Radha Gonzalo Facility :[facility] Start: 10-23-2024 End: 10-23-2024 Office outpatient new 30 minutes Sangita Ricketts DO Work Phone: [facility] Comment on above: Right foot pain (Amina james Dx); Contusion of right great toe without damage to nail, initial encounter Start: 10-23-2024 End: 10-23-2024 ambulatory SANGITA RICKETTS [facility] Start: 10-10-2024 ambulatory Hermelindo Presley Facility: [facility] Start: 08-06-2024 End: 08-06-2024 ambulatory Radha Agee Facility:[facility] Start: 08-04-2024 ambulatory Radha Agee Facility :[facility] Start: 08-04-2024 End: 08-04-2024 ambulatory Aric CERVANTES Facility:[facility] Start: 07-28-2024 End: 07-28-2024 ambulatory Hermelindo Presley Facility:[facility] Start: 07-07-2024 ambulatory Radha Agee Facility :[facility] Start: 07-07-2024 End: 07-07-2024 ambulatory Aric CERVANTES Facility:[facility] Start: 07-01-2024 End: 07-02-2024 Refill Sheilacarlos Swartz DO Work Phone: [facility] Comment on above: Refill Request (buPR OPion XL (WELLBUTRIN XL) 150 mg 24 hr tablet) Start: 06-23-2024 End: 06-24-2024 ambulatory Hermelindo Presley Facility:[facility] Start: 06-10-2024 End: 06-10-2024 Documentation procedure Sharda Lino PT [facility] Start: 06-06-2024 Encounter for other preprocedural examination Hermelinod Presley [facility] Start: 06-04-2024 End: 06-04-2024 ambulatory Hannah CERVANTES Facility:[facility] Start: 05-28-2024 End: 05-28-2024 Telephone encounter Shelly Alatorre LPN [facility] Clinical Communication Start: 05-27-2024 End: 06-05-2024 Patient encounter procedure Lizz Paniagua RN [facility] Clinical Communication Start: 05-27-2024 End: 05-27-2024 Office outpatient visit 25 minutes Chris Adams MD Work Phone: [facility] [place] Comment on above: Vulvar irritation (P rimary Dx); Urinary frequency Start: 05-27-2024 End: 06-05-2024 ambulatory Lizz Paniagua RN [facility] Clinical Communication Start: 05-23-2024 End: 05-24-2024 ambulatory Pipe Kancherla Facility:[facility] Start: 05-23-2024 ambulatory Pipe Fuentes Facilit y:[facility] Start: 05-14-2024 End: 05-14-2024 ambulatory Radha Kimbally Facility:[facility] Start: 05-12-2024 End: 05-12-2024 ambulatory SHEILA MAXIME Facility:[facility] Start: 05-12-2024 End: 05-12-2024 Patient encounter procedure Sheila Maxime DO Work Phone: [facility] Comment on above: PTSD (post-traumatic stress disorder) (Primary Dx); Severe episode of recurrent major depressive disorder, without psychotic features (HCC); Nightmares associated with chronic post-traumatic stress disorder; Insomnia due to mental condition Start: 04-29-2024 End: 04-29-2024 Telephone encounter Sheila Maxime DO Work Phone: [facility] Start: 04-23-2024 End: 04-23-2024 ambulatory Hermelindo Presley Facility:[facility] Start: 04-07-2024 End: 04-07-2024 ambulatory CHRIS ADAMS [facility] Start: 04-07-2024 End: 04-07-2024 Follow-up encounter Chris Adams MD Work Phone: [facility] Therapy [facility] Comment on above: Pelvic pain (Primary Dx) Start: 04-03-2024 End: 04-03-2024 ambulatory SHEILA MAXIME Facility:[facility] Start: 04-03-2024 End: 04-03-2024 Patient encounter procedure Sheila Maxime DO Work Phone: [facility] Comment on above: PTSD (post-traumatic stress disorder) (Primary Dx); Severe episode of recurrent major depressive disorder, without psychotic features (HCC); Insomnia due to mental condition; Nightmares associated with chronic post-traumatic stress disorder Start: 03-25-2024 End: 03-25-2024 ambulatory CHRIS ADAMS [facility] Start: 03-25-2024 End: 03-25-2024 Follow-up encounter Chris Adams MD Work Phone: [facility] Therapy at [facility] Comment on above: Pelvic pain (Primary Dx) Start: 03-24-2024 End: 03-24-2024 Telephone encounter Maggi Stout PhD Work Phone: [facility] Comment on above: Appointment (Schedul e intake for ACT Program) Start: 03-17-2024 End: 03-17-2024 ambulatory Hermelindo Presley Facility:[facility] Start: 03-12-2024 End: 03-18-2024 ambulatory Sheila Maxime DO Work Phone: [facility] Start: 03-12-2024 End: 03-18-2024 Patient encounter procedure Sheila Maxime DO Work Phone: [facility] Comment on above: Question Start: 03-06-2024 End: 03-07-2024 Telephone encounter Sheila Maxime DO Work Phone: [facility] Comment on above: Medication Problem Vagina, candidiasis (Primary Dx) Results Start: 03-05-2024 End: 03-05-2024 ambulatory DYAN GARCIA [facility] Start: 03-05-2024 End: 03-05-2024 Office outpatient visit 10 minutes Dyan Garcia MD Work Phone: [facility] Comment on above: Vaginal discharge (P rimary Dx) Start: 03-03-2024 End: 03-06-2024 ambulatory Sheila Maxime DO Work Phone: [facility] Start: 03-03-2024 End: 03-06-2024 Patient encounter procedure Sheila Maxime DO Work Phone: [facility] Comment on above: Question Start: 02-28-2024 End: 02-28-2024 Telephone encounter Sheila Maxime DO Work Phone: [facility] Start: 02-28-2024 End: 02-28-2024 ambulatory Hermelindo Presley Facility:[facility] Start: 02-25-2024 End: 02-25-2024 Follow-up encounter Chris Adams MD Work Phone: [facility] Comment on above: Pelvic pain (Primary Dx) Start: 02-25-2024 End: 02-25-2024 ambulatory CHAGO GALLEGO Facility:[facility] Start: 02-25-2024 End: 02-25-2024 Patient encounter procedure Sheila Swartz DO Work Phone: [facility] Comment on above: Severe episode of re current major depressive disorder, 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); PTSD (post-traumatic stress disorder); Insomnia due to mental condition; Nightmares associated with chronic post-traumatic stress disorder Start: 02-22-2024 ambulatory Magaly Joyce Beto y:[facility] Start: 02-22-2024 End: 02-22-2024 ambulatory John Hanks Facility:[facility] Start: 02-12-2024 End: 02-12-2024 Manual pelvic examination Chris Adams MD Work Phone: [facility] Comment on above: Pelvic pain Start: 02-12-2024 End: 02-12-2024 ambulatory Sharda Lino PT [facility] Start: 02-11-2024 End: 02-11-2024 ambulatory Hermelindo Presley Facility:[facility] Start: 02-11-2024 End: 02-11-2024 ambulatory Radha Gonzalo Facility:[facility] Start: 02-06-2024 End: 02-06-2024 Telephone encounter Jeanie Prasad MD Work Phone: [facility] Start: 02-06-2024 End: 02-06-2024 ambulatory JEANIE PRASAD [facility] Start: 02-06-2024 End: 02-06-2024 Office outpatient visit 15 minutes Jeanie Prasad MD Work Phone: [facility] Comment on above: Abnormal uterine ble eding (AUB) (Primary Dx); Pelvic pain; Mixed stress and urge urinary incontinence Start: 01-23-2024 End: 01-23-2024 ambulatory CHAGO GALLEGO Facility:[facility] Start: 01-23-2024 End: 01-23-2024 Patient encounter procedure Sheila Machucanzo DO Work Phone: [facility] Comment on above: PTSD (post-traumatic stress disorder); Severe episode of recurrent major depressive disorder, without psychotic features (HCC); Insomnia due to mental condition Start: 01-15-2024 End: 01-15-2024 ambulatory Zach Benoit Facility:[facility] Start: 01-11-2024 End: 01-11-2024 Subsequent hospital visit by physician Hannah Hidalgo [facility] Work Phone: [facility] Start: 01-09-2024 End: 01-09-2024 Telephone encounter Sheila Swartz DO Work Phone: [facility] Start: 01-08-2024 End: 01-08-2024 Emergency department patient visit CHAGO GALLEGO Facility:[facility] Start: 01-08-2024 End: 01-08-2024 ambulatory CHAGO GALLEGO Facility:[facility] Start: 01-08-2024 End: 01-08-2024 Patient encounter procedure Sheila Machucanzo DO Work Phone: [facility] Comment on above: Severe episode of re current major depressive disorder, 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); PTSD (post-traumatic stress disorder); Insomnia due to mental condition Start: 01-04-2024 End: 01-14-2024 [facility] Start: 01-04-2024 End: 01-14-2024 Patient encounter procedure [facility] Start: 01-03-2024 End: 01-03-2024 Telephone encounter Jeanie Prasad MD Work Phone: [facility] Start: 01-02-2024 End: 01-02-2024 ambulatory CHRIS ADAMS [facility] Start: 01-02-2024 End: 01-02-2024 Office outpatient visit 15 minutes Chris Adams MD Work Phone: [facility] Comment on above: Vulvar itching (Prim kate Dx); Pelvic pain; Dyspareunia in female Start: 01-01-2024 End: 01-01-2024 ambulatory Yissel Smith RN [facility] Clinical Communication Start: 01-01-2024 End: 01-01-2024 Patient encounter procedure Yissel Smith RN [facility] Clinical Communication Start: 01-01-2024 End: 01-03-2024 Telephone encounter Jeanie Prasad MD Work Phone: [facility] Comment on above: Orders Start: 12-21-2023 End: 12-21-2023 Office outpatient new 30 minutes Jeanie Prasad MD Work Phone: [facility] Comment on above: Abnormal uterine ble eding (AUB) (Primary Dx); Pelvic pain; Family history of malignant neoplasm of digestive organ Start: 12-21-2023 End: 03-21-2024 Transcribe Orders Jeanie Prasad MD Work Phone: [facility] Comment on above: Family history of ma lignant neoplasm of digestive organs (Primary Dx) Start: 11-21-2023 End: 11-21-2023 Telephone encounter Nghia Kelsey MD Work Phone: [facility] Comment on above: Other (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 ) Start: 11-08-2023 End: 11-08-2023 ambulatory FAY CARTER [facility] Start: 11-08-2023 End: 11-08-2023 Office outpatient new 45 minutes Fay Carter PA-C Work Phone: [facility] Comment on above: Facial skin lesion; Skin tags, multiple acquired; Acne vulgaris; Multiple benign melanocytic nevi of both upper extremities, both lower extremities, and trunk Start: 11-07-2023 End: 11-20-2023 ambulatory Marion Alvarado RN [facility] Clinical Communication Start: 11-07-2023 End: 11-20-2023 Patient encounter procedure Marion Alvarado RN [facility] Clinical Communication Start: 09-19-2023 End: 09-19-2023 ambulatory Sharee Bhakta RN [facility] Clinical Communication Start: 09-19-2023 End: 09-19-2023 Patient encounter procedure Sharee Bhakta RN [facility] Clinical Communication Start: 08-10-2023 ambulatory [facility] [place] Start: 08-10-2023 Patient encounter procedure Neetu Ferreira MA [facility] Comment on above: Population Health Na vigation Outreach (Off-boarding Dr. Parisi ) Start: 07-26-2023 Orders Only Chago Gallego DO Work Phone: [facility] Comment on above: Facial skin lesion ( Primary Dx) Start: 07-24-2023 Orders Only Chago Gallego DO Work Phone: [facility] Comment on above: Hemorrhoids, unspeci fied hemorrhoid type (Primary Dx) Start: 05-08-2023 End: 05-08-2023 Patient encounter procedure Nghia Kelsey MD Work Phone: [facility] Comment on above: PTSD (post-traumatic stress disorder) (Primary Dx); Encounter for completion of form with patient; Moderate episode of recurrent major depressive disorder (HCC); Insomnia due to mental condition; Nightmares associated with chronic post-traumatic stress disorder Start: 03-22-2023 Emergency department patient visit Rita Kavyaivethgena DO Work Phone: [facility] [employer] Comment on above: Encounter for prescr iption of emergency contraception (Primary Dx) Start: 02-28-2023 Non-patient / Non-visit No [facility] Physician [facility] Start: 02-26-2023 End: 02-26-2023 ambulatory No Primary Care Physician [facility] Work Phone: Start: 02-26-2023 End: 02-26-2023 Patient encounter procedure No Primary Care Physician [facility] Work Phone: Start: 02-26-2023 End: 02-26-2023 Patient encounter procedure No Primary Care Physician [facility] Work Phone: Start: 02-22-2023 End: 02-22-2023 Subsequent hospital visit by physician Lynne Hale [employer] Work Phone: [facility] MRI Comment on above: Migraine without aur a and without status migrainosus, not intractable Start: 02-14-2023 End: 02-14-2023 Office outpatient visit 25 minutes Lynne Hale APRN - [employer]ER Work Phone: [facility] Comment on above: Migraine without aur a and without status migrainosus, not intractable (Primary Dx) Start: 01-04-2023 End: 01-04-2023 ambulatory [facility] Magalykarina oJyce Work Phone: [facility] Work Phone: Start: 01-04-2023 End: 01-04-2023 Patient encounter procedure PAULA Mortonsay Joyce Work Phone: [facility]-Surgical Day Care Start: 12-08-2022 End: 12-08-2022 Patient encounter procedure Nghia Kelsey MD Work Phone: [facility] Comment on above: Moderate episode of recurrent major depressive disorder (HCC) (Primary Dx); PTSD (post-traumatic stress disorder); Insomnia due to mental condition Start: 11-23-2022 End: 11-23-2022 Initial preventive medicine new pt age 18-39yrs Lynne Hale [employer] Work Phone: [facility] Comment on above: Routine general medi eric examination at a health care facility (Primary Dx); Encounter to establish care; Migraine without aura and without status migrainosus, not intractable; Iron deficiency anemia, unspecified iron deficiency anemia type; Abdominal bloating; Screening for cardiovascular condition; Screening for lipid disorders Start: 11-23-2022 End: 11-23-2022 Patient encounter status Lynne K Hale [employer] Work Phone: [facility] Work Phone: Start: 10-26-2022 End: 10-26-[address] Hermelindo Presley Work Phone: [facility] Work Phone: Start: 10-26-2022 End: 10-26-[address] Hermelindo Presley Work Phone: [facility]-Laboratory, Specimen Work Phone: Start: 10-26-2022 End: 10-26-[address] Hermelindo Presley Work Phone: [facility] Work Phone: Start: 10-20-2022 End: 10-20-2022 Office outpatient visit 15 minutes Beatrice Parisi DO Work Phone: Family Medicine Comment on above: Migraine without aur a and without status migrainosus, not intractable (Primary Dx); Lactating mother Start: 10-13-2022 End: 10-13-2022 Office outpatient new 30 minutes Mera Lewis DPM Work Phone: [facility] Comment on above: Injury of left foot, initial encounter; Closed displaced fracture of phalanx of toe of left foot, unspecified toe, initial encounter Start: 10-12-2022 ambulatory Amanda Rodriguez Work Phone: OB/Gynecology Comment on above: Coco Start: 10-11-2022 End: 10-11-[address] Hermelindo Presley Work Phone: [facility] Work Phone: Start: 10-09-2022 Telephone encounter Amanda caputo MD Work Phone: OB/Gynecology Comment on above: Insurance Authorizat ion Start: 10-07-2022 End: 10-07-2022 Emergency department patient visit Dr. Hermelindo Presley Work Phone: [facility]-Emergency Department Work Phone: Start: 09-06-2022 ambulatory Amanda Rodriguez Work Phone: [...] 15 minutes Krishna Bran DO Work Phone: [facility] Comment on above: Incisional pain (Amina james Dx) Start: 07-19-2022 Telephone encounter Cloveryolanda nunez DO Work Phone: [facility] [employer] Start: 07-18-2022 Telephone encounter Marya alegre MD [...] End: 06-29-2022 Patient encounter procedure Farida Malin APRN.CNM Work Phone: OB/Gynecology Comment on above: Short [...] End: 06-09-2022 Patient encounter procedure Veronica Machuca APRN.CNM Work Phone: OB/Gynecology Comment on above: 36 weeks gestation o f (Primary Dx); Urinary urgency Start: 05-02-2022 ambulatory Nimco Mcallister Cl inical Communication Start: 05-02-2022 Patient encounter procedure Nimco Sylvester RN [facility] Start: 04-23-2022 End: 04-23-2022 Emergency department patient visit [facility]Emergency Department Start: 04-21-2022 ambulatory Amanda Rodriguez Work Phone: [...] above: Patient Question Start: 02-07-2022 E-mail encounter nuria terjo caregiver Danielle iGbbs [employer] Work Phone: [facility] Start: 02-07-2022 Patient encounter procedure Danielle Gibbs [employer] Work Phone: Internal Medicine Comment on above: Appointment Request Start: 01-31-2022 End: 01-31-2022 Patient encounter procedure Marya Chester MD Work Phone: OB/Gynecology Comment on above: APPOINTMENT CANCELLE D (Primary Dx) Start: 01-06-2022 ambulatory Miguelina Castro MD Work Phone: Maternal Medicine Comment on above: Your [id number] gene tic results Start: 01-06-2022 E-mail encounter fro m caregiver Miguelina Castro MD Work Phone: [facility] Start: 01-06-2022 Telephone encounter Miguelina baez MD [...] Rn) Mateo KAHN Obstetrics/Gynecology Comment on above: Contact Center Assistant - O ther (PRAF) Start: 11-30-2021 End: [...] requested procedure Amanda Alcaraz MD Work Phone: [facility] Work Phone: Start: 11-15-2021 Telephone encounter Marya alegre MD Work Phone: OB/Gynecology Comment on above: Early OB pain Start: 11-01-2021 Telephone encounter Amanda caputo MD Work Phone: OB/Gynecology Comment on above: Future Appointment Start: 06-02-2021 End: 06-02-2021 Emergency department patient visit Hakeem Wright MD Work Phone: [facility] Comment on above: Cluster headache, no t intractable, unspecified chronicity pattern (Primary Dx) Start: 04-20-2021 End: 04-20-2021 Subsequent hospital visit by physician Willam Benjamin MD Work Phone: [facility] General Surgery Comment on above: Arrived Start: 06-18-2020 End: 06-18-2020 Subsequent hospital visit by physician Morro Landaverde Work Phone: [facility] Start: 05-17-2020 End: 05-17-2020 Subsequent hospital visit by physician Chris Shannon Work Phone: [facility] Laboratory Comment on above: Abdominal discomfort ; Multiple food allergies Start: 05-07-2020 End: 05-07-2020 Subsequent hospital visit by physician Morro [facility]andaverde [facility] Comment on above: Closed displaced fra cture of navicular bone of left foot with routine healing, subsequent encounter Start: 04-06-2020 End: 04-06-2020 Subsequent hospital visit by physician Morro Landaverde Work Phone: [facility] Comment on above: Arrived Start: 03-28-2020 End: 03-28-2020 Emergency department patient visit Valeriano Hamilton Work Phone: [facility] Comment on above: Closed displaced fra cture of navicular bone of left foot with routine healing, subsequent encounter (Primary Dx) Start: 03-27-2020 End: 03-27-2020 Emergency department patient visit Chris Shannon [facility] ED Comment on above: Closed avulsion frac ture of navicular bone of left foot, initial encounter (Primary Dx) Start: 08-08-2019 End: 08-08-2019 Subsequent hospital visit by physician Zack Hilton Breast Ultrasound Room 1 [facility] BREAST [facility] IMG Comment on above: Arrived Start: 11-28-2018 End: 11-28-2018 Subsequent hospital visit by physician Chris Shannon Work Phone: [facility] Laboratory Comment on above: Urinary frequency Start: 12-05-2017 Patient encounter MORRO Pride [id number] Procedures Date Procedure Procedure Detail Performing Clinician Start: 05-27-2024 Urnls dip stick/tabl et rgnt non-auto w/o micrscp Chris Adams MD Work Phone: Start: 02-06-2024 Culture bacterial quanttative colony count urine Jeanie Prasad MD Work Phone: Start: 02-06-2024 Urnls dip stick/tabl et rgnt auto w/o microscopy Jeanie Prasad MD Work Phone: Start: 12-21-2023 Urine test visual color cmprsn meths Jeanie Prasad MD Work Phone: Start: 02-22-2023 Mri brain brain stem w/o contrast material Lynne Mendosa Vladimir [employer] - COMMUNITY CHEST OFFICER Work Phone: Start: 10-27-2022 Adult depression screening assessment Fay Carter PA-C Work Phone: Start: 10-26-2022 Cytopathology proced ure, preparation of smear, genital source Dr. Hermelindo Presley Work Phone: Start: 10-26-2022 Investigation of transfusion reaction Dr. Hermelindo Presley Work Phone: Start: 08-31-2022 BACTERIAL VAGINOSIS AMPLIFICATION Amanda Alcaraz MD Work Phone: Start: 08-31-2022 Iadna trichomonas vaginalis amplified probe tech Amanda Alcaraz MD Work Phone: Start: 07-18-2022 Urinalysis complete panel - Urine Rita Clark DO Work Phone: Start: 07-18-2022 Urnls dip stick/tabl et reagent auto microscopy Rita Clark DO Work Phone: Start: 07-18-2022 PULSE OXIMETRY, SPOT Geraldo Ryan [employer] - DEVELOPMENT SPECIALIST Work Phone: Start: 07-17-2022 PULSE OXIMETRY, SPOT Geraldo Ryan [employer] - DEVELOPMENT SPECIALIST Work Phone: Start: 07-16-2022 PULSE OXIMETRY, SPOT Geraldo Ryan [employer] - DEVELOPMENT SPECIALIST Work Phone: Start: 07-16-2022 PULSE OXIMETRY, SPOT Geraldo Ryan [employer] - DEVELOPMENT SPECIALIST Work Phone: Start: 07-16-2022 PULSE OXIMETRY, SPOT Geraldo Ryan [employer] - DEVELOPMENT SPECIALIST Work Phone: Start: 07-16-2022 Blood count complete automated Melissa Vanegas Sprinkle Work Phone: Start: 07-16-2022 Blood typing serolog ic abo Melissa [employer] DO Work Phone: Start: 06-22-2022 URINE OB [...] 02-27-2022 Us preg uterus after 1st trimest / gestation Amanda Alcaraz MD Work Phone: Start: 12-29-2021 URINE OB DIP B/O Amanda pelayo MD Work Phone: Start: 12-29-2021 Us nuchal translucency 1st gestation Amanda Alcaraz MD Work Phone: Start: 06-02-2021 Ct head/brain w/o contrast material Hakeem Wright MD Work Phone: Start: 06-02-2021 Urine test visual color cmprsn aline Wright MD Work Phone: Start: 06-02-2021 Basic metabolic pane l calcium total Hakeem Wright MD Work Phone: Start: 04-20-2021 Urine test visual color cmprsn aline Trujillo MD Work Phone: Start: 05-17-2020 Blood count complete auto&auto difrntl wbc Chris Cuevasgracesolradhagreg Work Phone: Start: 05-17-2020 Comprehensive metabo lic panel Chris Mirtha Work Phone: Start: 04-06-2020 Ct lower extremity w /o contrast material Morro T Gabi Work Phone: Start: 03-27-2020 Radex ankle complete minimum 3 views Garth Rosasner Work Phone: Start: 03-27-2020 Radex foot complete minimum 3 views Garth Russ Work Phone: Start: 08-08-2019 Us breast uni real t steph with image limited Chris Jordy Adams Work Phone: Start: 03-20-2019 Adult depression screening assessment Amanda Alcaraz MD Work Phone: Start: 02-06-2019 Microscopic observat ion [Identifier] in Cervix by Cyto stain Willam Benjamin MD Work Phone: Start: 11-28-2018 Blood count complete auto&auto difrntl wbc Chris Cuevaspaige Work Phone: Start: 11-28-2018 Comprehensive metabo lic panel Chris Mirtha Work Phone: section Diann W Me hl DO H/O: section Status pos t section Marie Muñoz MD Work Phone: Plan of Treatment Date Care Activity Detail Author Start: 08-21-2067 RSV Immunization for Adults (1 - 1-dose 75+ series) RSV Immunization for Adults (1 - 1-dose 75+ series) [id number] Start: 2052 RSV Immunization age d 60 or older (1 - 1-dose 60+ series) RSV Immunization aged 60 or older (1 - 1-dose 60+ series) [id number] Start: 2042 Zoster Vaccines (1 o f 2) Zoster Vaccines (1 of 2) [facility] Start: 07-16-2032 DTaP/Tdap/Td Vaccine s (3 - Td or Tdap) DTaP/Tdap/Td Vaccines (3 - Td or Tdap) [facility] Start: 03-21-2026 PAP TESTING PAP TESTING [facility] Start: 03-21-2026 Screening for malign ant neoplasm of cervix Pap Testing [facility] Start: 10-17-2025 DTaP/Tdap/Td vaccine (2 - Td or Tdap) DTaP/Tdap/Td vaccine (2 - Td or Tdap) [facility] Start: 10-17-2025 DTaP/Tdap/Td vaccine (2 - Td) DTaP/Tdap/Td vaccine (2 - Td) [place] Start: 10-17-2025 DTaP/Tdap/Td Vaccine s (2 - Td or Tdap) DTaP/Tdap/Td Vaccines (2 - Td or Tdap) [facility] Start: 10-17-2025 Urine microalbumin profile [facility] Start: 11-17-2024 Influenza vaccination Influenza Vacc ine (#1) [facility] Start: 11-05-2024 End: 11-05-2024 Patient encounter procedure 11/05/2024 10:10 AM EDT Office Visit [address] [phone] Sangita Ricketts M, DO [address] [place] [address] [facility] Start: 07-11-2024 End: 07-11-2024 Patient encounter procedure 07/11/2024 9:30 AM EDT Office Visit [facility] [address] [place] [address] Sheila Swartz DO 1 [place] [address] follow upp -/8wk [facility] Comment on above: follow upp -8wk Start: 06-05-2024 End: 06-05-[address] [facility] Start: 05-12-2024 End: 05-12-2024 Patient encounter procedure [facility] Comment on above: Follow-up Start: 05-05-2024 End: 05-05-2024 Follow-up encounter 05/05/2024 1:15 PM EST Follow-Up [facility] [address] [place] [address] Chris Adams MD [address] [address] Sharda Lino, PT [facility] Start: 04-28-2024 End: 04-28-2024 Follow-up encounter 04/28/2024 1:15 PM EST Follow-Up [facility] [address] [place] [address] Chris Adams MD [address] [address] Sharda Lino, PT [facility] Start: 04-24-2024 End: 04-24-2024 Follow-up encounter 04/24/2024 10:00 AM EST Follow-Up [facility] [address] [place] [address] Sharda Lino, PT [facility] Start: 04-21-2024 End: 04-21-2024 Follow-up encounter 04/21/2024 1:15 PM EST Follow-Up [facility] [address] [place] [address] Chris Adams MD [address] [id number] Sharda Lino, PT [facility] Start: 04-15-2024 End: 04-15-2024 Patient encounter procedure 04/15/2024 9:30 AM EST Office Visit [facility] [address] [place] [place] [address] Sheila Swartz DO [address] [place] [address] follow up - 6/8 wk [facility] Comment on above: follow up - 6/8 wk Start: 04-07-2024 End: 04-07-2024 Follow-up encounter 04/07/2024 2:45 PM EST Follow-Up [facility] [address] [place] [phone] Sharda Lino, PT [facility] Start: 03-31-2024 End: 03-31-2024 Follow-up encounter 03/31/2024 10:45 AM EST Follow-Up [facility] [address] [place] [phone] Sharda Lino, PT [facility] Start: 03-21-2024 PAP TESTING PAP TESTING [facility] Start: 03-21-2024 Screening for malign ant neoplasm of cervix Cervical Cancer Screening [facility] Start: 03-10-2024 End: 03-10-2024 Follow-up encounter [facility] Start: 03-10-2024 End: 03-10-2024 Follow-up encounter 03/10/2024 11:15 AM EST Follow-Up [facility] [address] [place] [phone] Sharda Lino, PT [facility] Start: 03-03-2024 End: 03-03-2024 Follow-up encounter 03/03/2024 2:45 PM EST Follow-Up [facility] [address] [place] [phone] Sharda Lino, PT [facility] Start: 02-25-2024 End: 02-25-2024 Follow-up encounter 02/25/2024 2:00 PM EST Follow-Up [facility] [address] [place] [phone] Sharda Lino, PT [facility] Start: 02-25-2024 End: 02-25-2024 Patient encounter procedure 02/25/2024 8:00 AM EST Office Visit [facility] 1 [facility] [place] [address] Sheila Swartz DO [address] [place] [address] follow up - 4 wk [facility] Comment on above: follow up - 4 wk Start: 02-18-2024 End: 02-18-2024 Follow-up encounter 02/18/2024 2:15 PM EST Follow-Up [facility] [address] [place] [phone] Sharda Lino, PT [facility] Start: 02-12-2024 End: 02-12-2024 ambulatory 02/12/2024 2:15 PM EST Evaluation [facility] [address] [place] [phone] Chris Adams MD [address] [place] [address] Sharda Lino, PT [facility] Start: 02-06-2024 End: 02-06-2024 Patient encounter procedure 02/06/2024 9:15 AM EST Office Visit [facility] Ob[facility]s [facility]ne[facility] [address] [place] [phone] Jeanie Prasad MD [address] [place] [address] [address] [place] [address] [facility] Start: 01-23-2024 End: 01-23-2024 Patient encounter procedure 01/23/2024 11:00 AM EST Office Visit [facility] [address] [place] [address] Sheila Swartz, [address] [place] [address] Follow-up [facility] Comment on above: Follow-up Start: 01-18-2024 End: 01-18-2024 Patient encounter procedure 01/18/2024 9:00 AM EDT Appointment [facility] [address] [place] [address] Hannah Hidalgo [facility] [address] [place], [place] [id number] Assessment [facility] Comment on above: Assessment Start: 01-11-2024 End: 01-11-2024 Patient encounter procedure 01/11/2024 9:00 AM EDT Appointment [facility] [address] [place] [address] Hannah Hidalgo [facility] [address] [place], [place] [phone] Assessment [facility] Comment on above: Assessment Start: 01-08-2024 End: 01-08-2024 Patient encounter procedure 01/08/2024 8:00 AM EDT Office Visit [facility] [address] [place] [address] Sheila Swartz DO 1 [place] [address] transfer of care [address] [facility] Kelsey [facility] Comment on above: [facility] Start: 01-03-2024 End: 01-02-2025 US Pelvis transvaginal US pelvis transvaginal Imaging Routine Pelvic pain Expected: 01/03/2024, Expires: 01/02/2025 [facility] Work Phone: Comment on above: Expected: 01/03/2024 , Expires: 01/02/2025 Start: 01-02-2024 End: 01-02-2024 Patient encounter procedure 01/02/2024 3:15 PM EDT Office Visit [facility] Ob[facility]s [facility] [address] [facility] [address] [place] [address] Chris Adams MD [address] [facility] 6 [place] [address] [facility] [place] Start: 12-21-2023 End: 12-20-2024 17-Hydroxyprogesterone [facility] Comment on above: Expected: 12/21/2023 (Approximate), Expires: 12/20/2024 Start: 12-21-2023 End: 12-20-2024 DHEA-sulf[address] [facility] Comment on above: Expected: 12/21/2023 (Approximate), Expires: 12/20/2024 Start: 12-21-2023 End: 12-20-2024 Testo,Free/Total (Sendout) [facility] Comment on above: Expected: 12/21/2023 (Approximate), Expires: 12/20/2024 Start: 12-21-2023 End: 12-21-2023 Patient encounter procedure 12/21/2023 10:15 AM EDT Office Visit [facility] [address] [place] [phone] Jeanie Prasad MD [address] [place], [place] [address] [facility] Start: 11-26-2023 End: 11-26-2023 Patient encounter procedure [facility] Start: 11-18-2023 COVID-19 Vaccine ( season) COVID-19 Vaccine ( season) [facility] Start: 11-18-2023 Covid-19 Vaccine ( season) Covid-19 Vaccine ( season) [facility] Start: 11-18-2023 Influenza vaccination [facility] Start: 11-09-2023 End: 11-09-2023 Patient encounter procedure 11/09/2023 9:45 AM EDT Office Visit [facility] [address] [place] [address] Jeanie Prasad MD [address] [place] [address] [facility] Start: 10-28-2023 Depression Screening Depression Scre ening [facility] Start: 10-24-2023 End: 10-24-2023 Patient encounter procedure 10/24/2023 1:40 PM EDT Office Visit [facility] [address] [facility] [address] [place] [phone] Ciara Ugarte PA-C [address] [facility] [address] [place] [address] [facility] Start: 2023 End: 2023 Patient encounter procedure 2023 9:40 AM EDT Office Visit [facility] [address] [facility] [address] [place] [phone] Ciara Ugarte PA-C [address] [facility] [address] [place] [address] [facility] Start: 04-29-2023 Depression Monitoring Depression Mon itoring [facility] Start: 04-29-2023 Depresssion Monitoring Depresssion M onitoring [facility] Start: 04-19-2023 End: 04-19-2023 Patient encounter procedure 04/19/2023 2:20 PM EST Office Visit [facility] [address] [place] [phone] Venancio Milner MD [address] [facility] [address] [place] [address] [facility] Start: 03-20-2023 End: 03-20-2023 Telemedicine consultation with patient 03/20/2023 1:40 PM EST Telemedicine [facility] [address] [place] [phone] Lynne Hale APRN - COMMUNITY CHEST OFFICER [address] [place] [address] [facility] Start: 03-19-2023 Depression Assessment Depression Ass essment [facility] Start: 02-28-2023 Patient referral [facility] Work Phone: Start: 02-22-2023 End: 02-22-2023 Patient encounter procedure 02/22/2023 2:30 PM EST Appointment [facility] MRI [address] [place] [phone] Lynne Hale APRN - COMMUNITY CHEST OFFICER [address] [place], [place] [address] [facility] MRI Start: 02-14-2023 End: 02-15-2024 MR Brain WO contrast MR brain wo contrast Imaging Routine Migraine without aura and without status migrainosus, not intractable Expected: 02/14/2023, Expires: 02/15/2024 [facility] Work Phone: Comment on above: Expected: 02/14/2023 , Expires: 02/15/2024 Start: 11-23-2022 End: 11-24-2023 CBC panel - Blood by Automated count CBC Lab Routine Iron deficiency anemia, unspecified iron deficiency anemia type Expected: 11/23/2022 (Approximate), Expires: 11/24/2023 [facility] Comment on above: Expected: 11/23/2022 (Approximate), Expires: 11/24/2023 Start: 11-23-2022 End: 11-24-2023 Celiac reflex panel Celiac reflex panel Lab Routine Abdominal bloating Expected: 11/23/2022 (Approximate), Expires: 11/24/2023 [employer] Work Phone: Comment on above: Expected: 11/23/2022 (Approximate), Expires: 11/24/2023 Start: 11-23-2022 End: 11-24-2023 Comprehensive metabolic 1998 panel - Serum or Plasma Comprehensive metabolic panel Lab Routine Screening for cardiovascular condition Expected: 11/23/2022 (Approximate), Expires: 11/24/2023 [email or web address] [id number] Comment on above: Expected: 11/23/2022 (Approximate), Expires: 11/24/2023 Start: 11-23-2022 End: 11-24-2023 Ferritin [Mass/volume] in Serum or Plasma Ferritin Lab Routine Iron deficiency anemia, unspecified iron deficiency anemia type Expected: 11/23/2022 (Approximate), Expires: 11/24/2023 [id number] Comment on above: Expected: 11/23/2022 (Approximate), Expires: 11/24/2023 Start: 11-23-2022 End: 11-24-2023 Iron and Iron binding capacity panel - Serum or Plasma Iron and TIBC Lab Routine Iron deficiency anemia, unspecified iron deficiency anemia type Expected: 11/23/2022 (Approximate), Expires: 11/24/2023 [id number] Comment on above: Expected: 11/23/2022 (Approximate), Expires: 11/24/2023 Start: 11-23-2022 End: 11-24-2023 Lipid 1996 panel - Serum or Plasma Lipid panel Lab Routine Screening for lipid disorders Expected: 11/23/2022 (Approximate), Expires: 11/24/2023 [id number] Comment on above: Expected: 11/23/2022 (Approximate), Expires: 11/24/2023 Start: 11-17-2022 COVID-19 Vaccine ( season) COVID-19 Vaccine ( season) [id number] Start: 11-17-2022 Influenza vaccination [facility] Start: 10-07-2022 Incision thrombosed hemorrhoid external INCISE EXTERNAL HEMORRHOID [facility] Start: 08-23-2022 End: 08-23-2022 Patient encounter procedure 08/23/2022 Office Visit Obstetrics and Gynecology Sola Sanchez MD [address] [place] [address] [facility] Start: 2022 HPV TESTING HPV TESTING [facility] Start: 2022 Screening for malign ant neoplasm of cervix [facility] Start: 08-13-2022 Varicella vaccination Varicell a Vaccines (1 of 2 - 2-dose childhood series) [facility] Start: 04-30-2022 Diabetes mellitus screening Diabetes Screening [facility] Start: 04-24-2022 End: 06-24-2022 Bacteria identified in Urine by Culture URINE CULTURE Microbiology Routine Cloudy urine 29 weeks gestation of Expected: 04/24/2022, Expires: 06/24/2022 [facility] Work Phone: Comment on above: Expected: 04/24/2022 , Expires: 06/24/2022 Start: 04-24-2022 End: 06-24-2022 Urinalysis complete panel - Urine URINALYSIS, WITH MICROSCOPIC Lab Routine Cloudy urine 29 weeks gestation of Expected: 04/24/2022, Expires: 06/24/2022 [facility] Work Phone: Comment on above: Expected: 04/24/2022 , Expires: 06/24/2022 Start: 04-03-2022 End: 06-03-2022 CBC panel - Blood by Automated count CBC Lab Routine 26 weeks gestation of Expected: 04/03/2022, Expires: 06/03/2022 [facility] Work Phone: Comment on above: Expected: 04/03/2022 , Expires: 06/03/2022 Start: 04-03-2022 End: 06-03-2022 GEST GLUC SCREEN, 1-HR, 50 GM, NON-FASTING GEST GLUC SCREEN, 1-HR, 50 GM, NON-FASTING Lab Routine 26 weeks gestation of Expected: 04/03/2022, Expires: 06/03/2022 [facility] Work Phone: Comment on above: Expected: 04/03/2022 , Expires: 06/03/2022 Start: 04-03-2022 End: 06-03-2022 SYPHILIS TOTAL W/REFLEX SYPHILIS TOTAL W/REFLEX Lab Routine 26 weeks gestation of Expected: 04/03/2022, Expires: 06/03/2022 [facility] Work Phone: Comment on above: Expected: 04/03/2022 , Expires: 06/03/2022 Start: 03-19-2022 DEPRESSION ASSESSMENT DEPRESSION ASS ESSMENT [facility] Start: 02-27-2022 End: 04-29-2022 Thyrotropin [Units/volume] in Serum or Plasma [facility] Work Phone: Comment on above: Expected: 02/27/2022 , Expires: 04/29/2022 Start: 02-27-2022 End: 04-29-2022 Thyroxine (T4) free [Mass/volume] in Serum or Plasma [facility] Work Phone: Comment on above: Expected: 02/27/2022 , Expires: 04/29/2022 Start: 02-06-2022 Screening for malign ant neoplasm of cervix [facility] Start: 12-29-2021 End: 02-28-2022 Chromosome 21 trisomy [Presence] in Blood or Tissue by Cytogenetics [facility] Work Phone: Comment on above: Expected: 12/29/2021 , Expires: 02/28/2022 Start: 11-30-2021 End: 01-30-2022 Bacteria identified in Urine by Culture URINE CULTURE Microbiology Routine Encounter for supervision of other normal in first trimester Expected: 11/30/2021, Expires: 01/30/2022 [facility] Work Phone: Comment on above: Expected: 11/30/2021 , Expires: 01/30/2022 Start: 11-30-2021 End: 01-30-2022 CBC panel - Blood by Automated count CBC Lab Routine Encounter for supervision of other normal in first trimester Expected: 11/30/2021, Expires: 01/30/2022 [facility] Work Phone: Comment on above: Expected: 11/30/2021 , Expires: 01/30/2022 Start: 11-30-2021 End: 01-30-2022 Hepatitis B virus surface Ab [Presence] in Serum by Immunoassay HEP B SURF AG SCRN Lab Routine Encounter for supervision of other normal in first trimester Expected: 11/30/2021, Expires: 01/30/2022 [facility] Work Phone: Comment on above: Expected: 11/30/2021 , Expires: 01/30/2022 Start: 11-30-2021 End: 01-30-2022 Hepatitis C virus Ab [Presence] in Serum HEP C AB IA W/CONF SCRN Lab Routine Encounter for supervision of other normal in first trimester Expected: 11/30/2021, Expires: 01/30/2022 [facility] Work Phone: Comment on above: Expected: 11/30/2021 , Expires: 01/30/2022 Start: 11-30-2021 End: 01-30-2022 HIV 1+2 Ab [Presence] in Serum or Plasma by Immunoassay HIV 1 2 COMBO(AG/AB),WITH REFLEX TO DIFFERENTIATION Lab Routine Encounter for supervision of other normal in first trimester Expected: 11/30/2021, Expires: 01/30/2022 [facility] Work Phone: Comment on above: Expected: 11/30/2021 , Expires: 01/30/2022 Start: 11-30-2021 End: 01-30-2022 RUBELLA IGG AB RUBELLA IGG AB Lab Routine Encounter for supervision of other normal in first trimester Expected: 11/30/2021, Expires: 01/30/2022 [facility] Work Phone: Comment on above: Expected: 11/30/2021 , Expires: 01/30/2022 Start: 11-30-2021 End: 01-30-2022 SYPHILIS TOTAL W/REFLEX SYPHILIS TOTAL W/REFLEX Lab Routine Encounter for supervision of other normal in first trimester Expected: 11/30/2021, Expires: 01/30/2022 [facility] Work Phone: Comment on above: Expected: 11/30/2021 , Expires: 01/30/2022 Start: 11-30-2021 End: 01-30-2022 TYPE + SCREEN TYPE + SCREEN Blood Bank Routine Encounter for supervision of other normal in first trimester Expected: 11/30/2021, Expires: 01/30/2022 [facility] Work Phone: Comment on above: Expected: 11/30/2021 , Expires: 01/30/2022 Start: 11-17-2021 Influenza vaccination [facility] Start: 07-05-2021 End: 07-05-2021 Patient encounter procedure 07/05/2021 Office Visit Urology Huber Cuadra, CURTAIN [employer] - [employer]ST OFFICER [address] [place] [address] [facility] [place] Start: 06-07-2021 End: 06-07-2021 Patient encounter procedure 06/07/2021 Appointment General Surgery Thompson Ramos MD [address] [place] [address] [facility] General Surgery Start: 04-22-2021 End: 04-22-2021 Patient encounter procedure 04/22/2021 Office Visit Family Medicine Chris Shannon MD [address] [place] [address] [facility] Start: 03-19-2021 DEPRESSION ASS[facility] Start: 11-17-2020 Influenza vaccination Flu vaccine (# 1) [facility] Start: 06-23-2020 End: 06-23-2020 Procedure visit [facility] [place] [employer] Start: 06-18-2020 End: 06-18-2020 Nurse Only [facility] [place] Start: 06-10-2020 End: 06-10-2020 Telemedicine 06/10/2020 Telemedicine Obstetrics and Gynecology Jeanie Prasad MD [address] [place], [place] [id number] [facility] [place] [employer] Start: 05-17-2020 End: 05-17-2020 Office Visit 05/17/2020 Office Visit Family Medicine Chris Shannon MD [address] [place], [place] [phone] [facility] Start: 05-07-2020 End: 05-07-2020 Nurse Only [facility] [place] Start: 04-12-2020 End: 04-12-2020 Office Visit 04/12/2020 Office Visit Orthopedic Surgery Morro Landaverde MD [address] [facility] [address] [place] [address] [phone] [facility] [place] Start: 03-20-2020 Adult depression screening assessment DEPRESSION SCREENING [facility] Start: 02-13-2020 Influenza vaccination Flu vacc ine (Season Ended) [place], [place] Comment on above: Postponed from 11/17 (Patient Refused) Start: 02-13-2020 Varicella vaccine (1 of 2 - 2-dose childhood series) Varicella vaccine (1 of 2 - 2-dose childhood series) [place] Comment on above: Postponed from 08/20 (Patient Refused) Start: 10-29-2019 End: 10-29-2019 Office Visit 10/29/2019 Office Visit Urology Maren Hamilton PA-C [address] [place] [address] [phone] [facility] Start: 12-26-2018 End: 12-26-2018 Office Visit 12/26/2018 Office Visit Family Medicine Chris Shannon MD [address] [place], [place] [phone] [facility] Start: 11-30-2018 Cervical cancer screen Cervical canc er screen [place], [place] Start: 11-17-2018 Influenza vaccination Flu vaccine (# 1) [place] Start: 08-21-2011 Hepatitis B Vaccine (1 of 3 - 19+ 3-dose series) Hepatitis B Vaccine (1 of 3 - 19+ 3-dose series) [facility] Start: 08-21-2011 Hepatitis B Vaccines (1 of 3 - 19+ 3-dose series) Hepatitis B Vaccines (1 of 3 - 19+ 3-dose series) [facility] Start: 2010 Anxiety Screening Anxiety Screening [facility] Start: 2010 Depression Screening Depression Scre ening [facility] Start: 2010 HEPATITIS C SCREENING HEPATITIS C SC REENING [facility] Start: 2008 COVID-19 Vaccine (1) COVID-19 Vaccin e (1) [facility] Work Phone: Start: 08-21-2007 HPV vaccine (1 - Fem willis 3-dose series) HPV vaccine (1 - Female 3-dose series) [place], [place] Start: 2005 Varicella vaccination Varicell a Vaccines (1 of 2 - 13+ 2-dose series) [facility] Start: 2005 Varicella Vaccine (1 of 2 - 13+ 2-dose series) Varicella Vaccine (1 of 2 - 13+ 2-dose series) [place] Start: 2004 Depression Screen Depression Screen [facility] Start: 2004 Depression Screening Depression Scre ening [facility] Start: 1997 COVID-19 Vaccine (1) COVID-19 Vaccin e (1) [facility] Start: 1993 MMR Vaccines (1 of 1 - Standard series) MMR Vaccines (1 of 1 - Standard series) [facility] Start: 1993 Varicella vaccination Varicell a Vaccines (1 of 2 - 2-dose childhood series) [facility] Start: 1993 Varicella vaccine (1 of 2 - 2-dose childhood series) Varicella vaccine (1 of 2 - 2-dose childhood series) [facility] Start: 02-19-1993 COVID-19 VACCINE (#1) COVID-19 VACCI NE (#1) [facility] Start: 1992 HEPATITIS B (1 of 3 - 3-dose series) HEPATITIS B (1 of 3 - 3-dose series) [facility] Start: 1992 Hepatitis B Vaccine (1 of 3 - 3-dose series) Hepatitis B Vaccine (1 of 3 - 3-dose series) [facility] Start: 1992 Hepatitis B Vaccines (1 of 3 - 3-dose series) Hepatitis B Vaccines (1 of 3 - 3-dose series) [id number] Bacteria identified in Urine by Culture Urine culture Microbiology Routine Urinary frequency Ordered: 05/27/2024 [facility] [id number] [facility] Work Phone: Comment on above: Ordered: 05/27/2024 Blood glucose - POCT [employer] Work Phone: Comment on above: As Needed until disc ontinued starting 04/20/2021 Chlamydia trachomatis+Neisseria gonorrhoeae DNA [Presence] in Urine by BLAIR with probe detection GC/CHLAMYDIA AMPLIF, URINE Microbiology Routine Encounter for supervision of other normal in first trimester 13 weeks gestation of Ordered: 12/29/2021 [facility] Work Phone: Comment on above: Ordered: 12/29/2021 End: 04-20-2021 Creatinine [Mass/volume] in Serum or Plasma Creatinine, serum Lab STAT One Time for 1 Occurrences starting 04/20/2021 until 04/20/2021 [employer] Work Phone: Comment on above: One Time for 1 Occur rences starting 04/20/2021 until 04/20/2021 EMPOWER MULTI-CANCER (2 + 38) EMPOWER MULTI-CANCER (2 + 38) Lab Routine Family history of malignant neoplasm of digestive organ 12/21/2023 10:52 AM EDT [facility] End: 04-20-2021 FL RETROGRADE PYELOGRAM W WO KUB [employer] Work Phone: Comment on above: Once for 1 Occurrenc es starting 04/20/2021 until 04/20/2021 End: 05-17-2020 Gliadin Antibodies, Serum [employer] Work Phone: Comment on above: 1 Occurrences starti ng 05/17/2020 until 05/17/2020 Once for 1 Occurrenc es starting 05/17/2020 until 05/17/2020 Gliadin Antibodies, Serum Gliadin Antibodies, Serum Lab Routine 05/17/2020 11:02 AM EST [employer] Work Phone: End: 04-20-2021 Intermittent pulse oximetry Pulse Oximetry Spot Check Respiratory Care Routine One Time for 1 Occurrences starting 04/20/2021 until 04/20/2021 [employer] Work Phone: Comment on above: One Time for 1 Occur rences starting 04/20/2021 until 04/20/2021 Nasal Cannula Oxygen Nasal Cannu la Oxygen Respiratory Care Routine As Needed until discontinued starting 04/20/2021 [employer] Work Phone: Comment on above: As Needed until disc ontinued starting 04/20/2021 Neisseria gonorrhoea e DNA [Presence] in Cervical mucus by BLAIR with probe detection Chlamydia/Gonorrhea Microbiology Routine Pelvic pain Ordered: 12/21/2023 [employer] Work Phone: Comment on above: Ordered: 12/21/2023 Nonrebreather mask oxygen Nonrebreather mask oxygen Respiratory Care Routine As Needed until discontinued starting 04/20/2021 [employer] Work Phone: Comment on above: As Needed until disc ontinued starting 04/20/2021 NUCHAL TRANSLUCENCY WHI NUCHAL T RANSLUCENCY I Anc Imaging Routine Encounter for supervision of other normal in first trimester Ordered: 11/30/2021 [facility] [employer] Work Phone: Comment on above: Ordered: 11/30/2021 OBSTETRIC ULTRASOUND WHI OBSTETRIC ULTRASOUND I Anc Imaging Routine Encounter for supervision of other normal in first trimester 1 Occurrences starting 11/30/2021 [facility] Work Phone: Comment on above: 1 Occurrences starti ng 11/30/2021 OUTSIDE PROCEDURE SCAN OUTSIDE P ROCEDURE SCAN Procedures Ordered: 02/21/2023 [facility] Comment on above: Ordered: 02/21/2023 OUTSIDE PROCEDURE SCAN OUTSIDE P ROCEDURE SCAN Procedures Ordered: 12/21/2023 [facility] [id number] [facility] Comment on above: Ordered: 12/21/2023 Oxygen therapy [Mini [facility] Data Set] [facility] Work Phone: Comment on above: As Needed until disc ontinued starting 04/20/2021 Daily until disconti nued starting 04/20/2021 Patient Education [facility] Work Phone: Patient referral [facility] Work Phone: End: 04-20-2021 Potassium w/ Reflex to Magnesium Potassium w/ Reflex to Magnesium Lab Routine One Time for 1 Occurrences starting 04/20/2021 until 04/20/2021 [employer] Work Phone: Comment on above: One Time for 1 Occur rences starting 04/20/2021 until 04/20/2021 End: 04-20-2021 Protime-INR Protime-INR Lab STAT One Time for 1 Occurrences starting 04/20/2021 until 04/20/2021 [employer] Work Phone: Comment on above: One Time for 1 Occur rences starting 04/20/2021 until 04/20/2021 Spirometry panel Incentive jose metry Respiratory Care Routine Q1H PRN until discontinued starting 04/20/2021 [employer] Work Phone: Comment on above: Q1H PRN until discon tinued starting 04/20/2021 SureSwab(R) Adv Bacterial Vaginosis (BV), TMA ([facility]) SureSwab(R) Adv Bacterial Vaginosis (BV), TMA ([facility]) Microbiology Routine Vulvar itching Ordered: 01/02/2024 [employer] Comment on above: Ordered: 01/02/2024 SURESWAB(R) ADV CAND MACEY VAGINITIS (CV), TMA ([facility]) Sureswab(R) Adv Letitia Vaginitis (CV), TMA ([facility]) Lab Routine Vulvar itching Ordered: 01/02/2024 [employer] Work Phone: Comment on above: Ordered: 01/02/2024 SURESWAB(R) ADVANCED VAGINITIS PLUS, TMA ([facility]) Sureswab(R) Advanced Vaginitis Plus, TMA ([facility]) Lab Routine Vaginal discharge Ordered: 03/05/2024 [employer] Work Phone: Comment on above: Ordered: 03/05/2024 SURESWAB(R) ADVANCED VAGINITIS PLUS, TMA ([facility]) Sureswab(R) Advanced Vaginitis Plus, TMA ([facility]) Lab Routine Vulvar irritation Ordered: 05/27/2024 [employer] Comment on above: Ordered: 05/27/2024 URINE OB DIP B/O URINE OB DIP B/ O Lab Routine 36 weeks gestation of Ordered: 06/09/2022 [facility] Work Phone: Comment on above: Ordered: 06/09/2022 URINE OB DIP B/O URINE OB DIP B/ O Lab Routine Short interval between pregnancies affecting , antepartum 39 weeks gestation of Ordered: 06/29/2022 [facility] Work Phone: Comment on above: Ordered: 06/29/2022 Urine test [facility] End: 10-07-2023 Us transvaginal US FEMALE PELVIS TRANSVAG Radiology Routine Pelvic cramping 1 Occurrences starting 09/07/2022 until 10/07/2023 [facility] Work Phone: Comment on above: 1 Occurrences starti ng 09/07/2022 until 10/07/2023 XR Foot - right 3 Views XR foot 3+ views right Imaging Routine Right foot pain 10/23/2024 11:50 AM EDT [employer] Work Phone: End: 05-07-2020 XR FOOT LEFT (MIN 3 VIEWS) XR FOOT LEFT (MIN 3 VIEWS) Imaging Routine Closed displaced fracture of navicular bone of left foot with routine healing, subsequent encounter 1 Occurrences starting 05/07/2020 until 05/07/2020 [employer] Work Phone: Comment on above: 1 Occurrences starti ng 05/07/2020 until 05/07/2020 XR FOOT LEFT (MIN 3 VIEWS) [employer] Work Phone: End: 06-18-2020 XR FOOT LEFT (MIN 3 VIEWS) XR FOOT LEFT (MIN 3 VIEWS) Imaging Routine Once for 1 Occurrences starting 06/18/2020 until 06/18/2020 [employer] Work Phone: Comment on above: Once for 1 Occurrenc es starting 06/18/2020 until 06/18/2020 [facility] Immunizations Immunization Date Immunization Notes Care Provider Abby frias 07-16-2022 diphtheria, tetanus toxoids and acellular pertussis vaccine, unspecified formulation Marie Muñoz MD Work Phone: [facility] [id number] Work Phone: 07-16-2022 measles, mumps and rubella virus vaccine Marie Muñoz MD Work Phone: [facility] 12-19-2017 influenza, injectable, quadrivalent, contains preservative Chris Lishnevski [facility] 12-19-2017 influenza virus vaccine, unspecified formulation Marie Muñoz MD Work Phone: [facility] 10-18-2015 tetanus toxoid, reduced diphtheria toxoid, and acellular pertussis vaccine, adsorbed Chris Lishnevski [facility] NEGATED: Highlighted row has not occurred!01-31-2021 influenza, injectable, quadrivalent, contains preservative Amanda Alcaraz MD Work Phone: [facility] Comment on above: Deferred: Patient Re fused NEGATED: Highlighted row has not occurred!01-31-2021 tetanus toxoid, reduced diphtheria toxoid, and acellular pertussis vaccine, adsorbed Amanda Alcaraz MD Work Phone: [facility] Comment on above: Deferred: Patient Re fused Payers Date Payer Category Payer Self-pay 2022 Medicaid HMO [facility] MEDICAID ODM [id number] 2020 Medicaid [id number] 2018 Medicaid [facility] MEDICAID [facility] xxxxxxxxxxxx 2018-Present [phone] [address] [address] [place] [address] xxxxxxxxxxxx [id number] 2018 Unknown [id number] Unknown [id number] 2.16.840.1.631418.3.579.2.462 Unknown [id number] 2.16.840.1.974506.3.579.2.462 Unknown [id number] 2.16.840.1.852686.3.579.2.462 Unknown [id number] 2.16.840.1.745085.3.579.2.462 Unknown [id number] 2.16.840.1.472456.3.579.2.462 Unknown [id number] 2.16.840.1.010966.3.579.2.462 Unknown [id number] 2.16.840.1.255246.3.579.2.462 Unknown [id number] 2.16.840.1.642489.3.579.2.462 Unknown [id number] 2.16.840.1.533203.3.579.2.462 Unknown [id number] 2.16.840.1.207319.3.579.2.462 Unknown [id number] 2.16.840.1.143102.3.579.2.462 Unknown [id number] 2.16.840.1.628590.3.579.2.462 Unknown [id number] 2.16.840.1.330105.3.579.2.462 Unknown [id number] 2.16.840.1.196450.3.579.2.462 Unknown [id number] 2.16.840.1.775293.3.579.2.462 Unknown [id number] 2.16.840.1.356797.3.579.2.462 Unknown [id number] 2.16.840.1.212495.3.579.2.462 Unknown [id number] 2.16.840.1.000196.3.579.2.462 Unknown [id number] 2.16.840.1.142614.3.579.2.462 Unknown [id number] 2.16.840.1.167168.3.579.2.462 Unknown [id number] 2.16.840.1.438092.3.579.2.462 Unknown [id number] 2.16.840.1.746303.3.579.2.462 Unknown [id number] 2.16.840.1.502443.3.579.2.462 Unknown [id number] 2.16.840.1.686806.3.579.2.462 Unknown [id number] 2.16.840.1.358800.3.579.2.462 Unknown [id number] 2.16.840.1.436331.3.579.2.462 Unknown [id number] 2.16.840.1.120974.3.579.2.462 Unknown [id number] 2.16.840.1.812678.3.579.2.462 Unknown [id number] 2.16.840.1.635217.3.579.2.462 Social History Date Type Detail Facility Start: 11-28-2018 End: 11-30-2021 Tobacco smoking status NHIS Never smoker [place] Start: 11-28-2018 End: 02-06-2024 Alcohol intake No [facility] Sex Assigned At Not on file [facility] [place] Start: 07-30-2019 End: 10-23-2024 Alcohol intake Current non-drinker of alcohol (finding) [facility] Start: 03-27-2020 End: 11-30-2021 Tobacco use and exposure Never used [facility] Start: 1990 Sex Assigned At Female M neftali [facility] STEV[facility] MOREIRA Start: 10-17-2021 End: 10-10-2022 Exposure to SARS-CoV-2 (event) Not sure Rut [facility] MOREIRA Start: 03-21-2021 Alcohol intake Lifetime non-d kacy (finding) [facility] Start: 03-20-2019 End: 04-10-2022 History SDOH Alcohol Frequency 1 [facility] Start: 09-30-2020 Education 21 [facility] Start: 11-24-2021 End: 05-12-2024 Alcohol intake Ex-drinker (finding) [facility] Start: 11-24-2021 History SDOH Alcohol Comment rarely [facility] Start: 10-11-2021 [facility] Start: 04-10-2022 History SDOH Alcohol Std Drinks 0 [facility] Start: 04-10-2022 History SDOH Social Connections Phone 5 [facility] Start: 04-10-2022 History SDOH Social Connections [facility] 3 [facility] Start: 04-10-2022 End: 07-17-2022 History SDOH Social Connections Membership 2 [facility] Start: 04-10-2022 History SDOH Transpo rt Med 98 [facility] Start: 04-23-2022 End: 02-26-2023 Tobacco smoking status NHIS Unknown if ever smoked [facility] Start: 04-10-2022 End: 02-06-2024 History of Social function [facility] Do you belong to any clubs or organizations such as spiritism groups, unions, fraternal or athletic groups, or school groups? No [facility] Are you now , , , , never or living with a partner? [facility] How often to you hav e a drink containing alcohol? Never [facility] How many standard dr inks containing alcohol do you have on a typical day? Patient does not drink [facility] Do you feel stress - tense, restless, nervous, or anxious, or unable to sleep at night because your mind is troubled all the time - these days [OSQ] Very much [facility] (I/We) worried koki er (my/our) food would run out before (I/we) got money to buy more. DK or Refused [facility] The thought of maggy hardin myself has occurred to me Sometimes [facility] Start: 01-19-2019 Gender identity Identifies as female gender (finding) [facility] Start: 01-19-2019 Sexual orientation Choose not to disclose [facility] Start: 10-17-2021 Sex Female (finding) [facility] NEGATED: Highlighted row [facility] Goals Date Patient Goal Desired Activity /State Personal health goal Mental Status Date Assessment Result Facility 04-23-2022 Cognitive function Level Of Cons ciousness Awake;Alert;Appropriate;Follow s Commands [facility] Work Phone: Clinical Notes 10-11-2020 to 10-23-2024 Sangita Ricketts DO - 10/23/2024 11:40 AM EDTTelephone Encounter - [facility] - 07/01/2024 4:59 PM EDTTelephone Encounter - [facility] 07/01/2024 4:59 PM EDTPatient Instructions Note Date & Type Note Facility 10-23-2024 History of Present illness Narrative Images from the original note were not included. [facility] [address] [address] Dept: [phone] Dept Chief Complaint Patient presents with New Patient Right Foot Subjective History of Present Illness: Rg Kelley is a 34 y.o. female who presents today for evaluation of right foot pain. Location: Right Big Toe Onset: 1 day Injury: fell down the steps and landed on big toe Quality: dull, sharp, stabbing Radiation of symptoms: no Severity: 2/10 at rest and 5/10 at worst Exacerbating factor(s): walking Relieving factor(s): ice, elevation, rest Timing: all day Imaging to date: x-rays completed today while in office Treatment to date: PT/OT/HEP: no Ice: yes, not helpful Heat: no Medications: Tylenol: no NSAIDs: no Oral steroids: no Muscle relaxants: no Nerve medications: no Targeted injections: none Assistive devices: none Prior surgery: no Tripped on stairs, landed with foot in plantarflexion directly on great toe 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 Respiratory: Breathing comfortably on room air. No respiratory distress. Skin: Warm, dry, intact. No visible rashes or erythema overlying area of focused exam. Right Foot: Inspection: Swelling:mild at great toe Ecchymosis: small amount of ecchymoses at dorsal aspect of great toe. No plantar ecchymoses No redness noted. no warmth Edema: Negative Ankle ROM: normal Pain to palpation: 1st proximal phalanx and IP joint > great toe MTP joint and distal phalanx. Otherwise nontender in lower leg, foot and ankle. Strength: 5 on 5 tibialis anterior strength, 5 of 5 EHL strength, 5 of 5 gastroc-soleus strength, 5 of 5 EDL strength, 5 of 5 peroneus longus, 5 of 5 tibialis posterior, 5 of 5 FHL, and 5 of 5 FDL Pain with FHL testing Vascular: normal DP and PT pulses, no trophic changes or ulcerative lesions, and normal sensory exam External Notes No recent notes available Labs Lab Results Component Value Date HGBA1C 4.8 04/30/2021 Lab Results Component Value Date CREATININE 0.65 11/27/2022 Imaging WB AP, lateral and oblique views of the Right foot were obtained today and personally reviewed. The midfoot alignment is normal. The talar dome is normal. The subtalar joint is normal. Degenerative changes not present, there is an accessory navicular. No other soft tissue or bony abnormalities are noted. EMG/NCT None available Procedure No procedures completed today Assessment Diagnosis Plan 1. Right foot pain XR foot 3+ views right General supply request: post -op shoe 2. Contusion of right great toe without damage to nail, initial encounter General supply request: post -op shoe Plan History, imaging and exam consistent with contusion Reviewed imaging in room with Rg, discussed findings of no fracture Pathophysiology and treatment strategies of bony contusions discussed Given her degree of pain, and discomfort with jude taping yesterday, will trial short course of WBAT in post op shoe, with tylenol s needed. Will see back in 2 weeks for recheck Consider repeat imaging pending response to these measures Follow up in about 2 weeks (around 11/06/2024). Sangita Ricketts DO 10/23/2024 11:52 AM Please note that portions of this note may have been completed with voice recognition software. Documentation reviewed prior to signing but minor errors in tune up mechanic may have occurred. documented in this encounter [facility] 07-01-2024 Telephone encounter Note Pharmacy faxed requesting the following refill Refill(s) Requested: Requested Prescriptions Pending Prescriptions Disp Refills buPROPion XL (WELLBUTRIN XL) 150 mg 24 hr tablet 90 tablet 0 Sig: Take 1 tablet by mouth once daily. ALLERGIES Allergen Reactions Erythromycin Hives, Unknown Latex Rash Nitrofurantoin Sabine* Hives Phenazopyridine Hives Silver Sulfadiazine Hives Soy Anaphylaxis Tetracycline Hcl Unknown (home) [phone] (work) [phone] (cell) Last Office Visit Date: 05/12/2024 Last [facility] Visit: Visit date not found Future Appointment: Visit date not found The patients preferred pharmacy has been captured for this encounter? yes Request is for script(s) to be escript to pharmacy. Aliya Turcios [facility] 07-01-2024 Miscellaneous Notes Pharmacy faxed requesting the following refill Refill(s) Requested: Requested Prescriptions Pending Prescriptions Disp Refills buPROPion XL (WELLBUTRIN XL) 150 mg 24 hr tablet 90 tablet 0 Sig: Take 1 tablet by mouth once daily. ALLERGIES Allergen Reactions Erythromycin Hives, Unknown Latex Rash Nitrofurantoin Sabine* Hives Phenazopyridine Hives Silver Sulfadiazine Hives Soy Anaphylaxis Tetracycline Hcl Unknown (home) [phone] (work) [phone] (cell) Last Office Visit Date: 05/12/2024 Last [facility] Visit: Visit date not found Future Appointment: Visit date not found The patients preferred pharmacy has been captured for this encounter? yes Request is for script(s) to be escript to pharmacy. Aliya Turcios documented in this encounter [facility] 06-10-2024 History of Present illness Narrative Images from the original note were not included. [facility] AT [address] [address] Discharge Notification Patient Name: Rg Kelley : 1990 Today's Date: 06/10/2024 Patient has not been seen since 04/07/24. The patient will be discharged at this time due to inactivity. The patient has not been seen for outpatient therapy in 30+ days and has not made contact to reschedule. The patient will require new referral/evaluation to resume therapy in the future. The patient will be discharged at this time. Please refer to initial evaluation or re-assessment for last goals/objective measures assessment and progress report. Thank you for this referral. For any questions on this patient s course of therapy, please call the clinic for clarification. Sharda Lino PT documented in this encounter [facility] 05-28-2024 Telephone encounter Note Pt calling to state the pharmacy does not have Rx. Called pharmacy and they states the fax was down yesterday Gave verbal for the fluconazole (Diflucan) 150 MG tablet per protocol. Pt instructed to greens picker Rx [facility] 05-28-2024 Miscellaneous Notes Pt calling to state the pharmacy does not have Rx. Called pharmacy and they states the fax was down yesterday Gave verbal for the fluconazole (Diflucan) 150 MG tablet per protocol. Pt instructed to greens picker Rx documented in this encounter [facility] 05-27-2024 History of Present illness Narrative HPI: Here for a few days history of vulvar irritation and some white discharge. Recent surgery but no abx. Had urinary catheter, has some dysuria. REVIEW OF SYSTEMS: Gen: denies weight loss, fatigue, fevers/chills : see HPI PHYSICAL EXAM: Vitals: 05/27/24 1207 BP: 112/78 PHYSICAL EXAM: Gen: normal appearance, NAD Neuro: AAOx3 Psych: normal affect Abd: soft, NT, ND, no masses palpated External genitalia: normal, no lesions, no skin discoloration, normal introitus Urethral meatus: normal, no diverticulum or irritation present Vagina: normal, no lesions Ivori was seen today for urinary frequency. Diagnoses and all orders for this visit: Vulvar irritation (Primary) - Sureswab(R) Advanced Vaginitis Plus, TMA ([facility]) Urinary frequency - POCT urinalysis dipstick manually resulted - Urine culture Other orders - fluconazole (Diflucan) 150 MG tablet; Take 1 tablet (150 mg) by mouth Every 3 days for 2 doses. PLAN: -plan to tx for suspected yeast infection -UA reviewed, will send urine culture -sureswab sent - yeast, BV, trich, GC/CT documented in this encounter [facility] 05-27-2024 Telephone encounter Note S: Patient called the clinical access center with complaint of urine symptoms B: Urgency and frequency with urination started a few days ago A: Urgency and frequency with urination , she also has a thick white odorless vaginal discharge. She denies abdominal pain, flank pain and fever. She is drinking water R: Appointment scheduled today at the [place] office. Patient instructed to call back with worsening symptoms, concerns or questions. Reason for Disposition Urinating more frequently than usual (i.e., frequency) OR new-onset of the feeling of an urgent need to urinate (i.e., urgency) Protocols used: Urinary Jgtkltdr-[id number]-DY [facility] 05-27-2024 Miscellaneous Notes S: Patient called the clinical access center with complaint of urine symptoms B: Urgency and frequency with urination started a few days ago A: Urgency and frequency with urination , she also has a thick white odorless vaginal discharge. She denies abdominal pain, flank pain and fever. She is drinking water R: Appointment scheduled today at the [place] office. Patient instructed to call back with worsening symptoms, concerns or questions. Reason for Disposition Urinating more frequently than usual (i.e., frequency) OR new-onset of the feeling of an urgent need to urinate (i.e., urgency) Protocols used: Urinary Wqppjgfs-ESRSC-EF documented in this encounter [facility] 05-24-2024 Note [facility] Records Department [address] [place] [address] Discharge Summary 05/24/24 1521 MR#: [id number] Acct: [id number] Name: RG KELLEY Rep #: [id number] : 1990 33 From: Hermelindo Presley MD PCP: Dr. Radha Agee MD Status:ADM [place] Location: [place] [address] Providers Date of Admission: 05/23/24 Primary Care Physician: Dr. Radha Agee MD Reason For Visit: Laparoscopic, Toupet Fundoplication hiatal herni Medications at Discharge Home Medications pantoprazole 40 mg tablet,delayed release 40 mg PO QDAY #60 tabs 02/27/24 Held on 05/24/24. Instructions: Resume on 06/07/24. BEET ROOT 1 cap PO DAILY 04/22/24 Held on 05/24/24. Instructions: Resume on 05/26/24. CLORAPHIL 1 cap PO DAILY 04/22/24 FEVER FEW 1 cap PO DAILY 04/22/24 GOTUKOLA 1 cap PO DAILY 04/22/24 Held on 05/24/24. Instructions: Resume on 05/30/24. Monitor for any nausea or stomach pains Lactobacillus acidophilus 250 million cell capsule (Probiotic Acidophilus) 500 mmu cells PO DAILY 04/22/24 MARSHMELLOW ROOT 1 cap PO DAILY 04/22/24 boron 6 mg tablet 6 mg PO DAILY 04/22/24 bupropion HCl 150 mg 24 hr tablet, extended release 150 mg PO DAILY 04/22/24 ferrous sulfate 325 mg (65 mg iron) tablet 325 mg PO DAILY 04/22/24 magnesium 250 mg tablet 250 mg PO DAILY 04/22/24 zinc gluconate 50 mg tablet 50 mg PO DAILY 04/22/24 adrenal complex PO 04/23/24 berberine chloride 500 mg capsule 1,500 mg PO 04/23/24 Held on 05/24/24. Instructions: Resume on 05/30/24. black currant seed oil .Route 04/23/24 Held on 05/24/24. Instructions: Resume on 05/26/24. calcium acetate PO 04/23/24 levomefolate 15 mg-algal oil 90.314 mg capsule (L-Methylfolate Forte) 1 cap PO QDAY 04/23/24 pyridoxine (vitamin B6) PO 04/23/24 sunflower lecithin PO 04/23/24 Held on 05/24/24. Instructions: Resume on 05/30/24. oxycodone 20 mg/mL oral concentrate 5 mg (0.25 mL) PO Q6H PRN PAIN 6-10 3 days #30 mL 05/24/24 Hospital Course Operations - (Laparoscopic hiatal hernia repair with toupee fundoplication) Procedures None Summary of Care Provided Hospital Course: Patient is a 33-year-old female who underwent laparoscopic hiatal hernia repair with toupee fundoplication on 05/23/2024. Procedure was completed in uncomplicated fashion and patient was admitted postoperatively for routine observation. She was evaluated immediately postop and doing well apart from some anticipated breakthrough pain which was treated. However, on reevaluation morning postoperative day 1 she reported that she had 2 episodes of nausea and vomiting that were not reported to me. Given these reports from patient I suggested we extend her observation for an additional few hours to make sure she did not have recurrence of this nausea and vomiting and demonstrated tolerance of a diet advancement to a full liquid diet. Patient went on to specify that the periods of nausea and vomiting followed movement and her reports were suggestive of postanesthetic side effects. She had no recurrence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 dysfunctional habits, Normalized urinary frequencies; Bladder Re-training: Discussed Night time strategies, urge suppression Dietary Irritants: Discussed effects of bladder irritants on bladder & urinary urgency Pelvic Floor Assessment: Discussed rational, informed consent*, completion & findings explained. (*Consent for pelvic floor assessment, muscle testing and treatment: Patient received education regarding pelvic floor physical therapy assessment/treatment with use of 3D pelvic floor model for education on relevant pelvic floor anatomy. Assessment and treatment may include an external or internal (visual and/or digital/tactile) approach for assessment/treatment of perineal tissues, pelvic floor and pelvic girdle muscles. Patient provided freely given, reversible, informed, enthusiastic and specific consent for internal pelvic floor muscle assessment and treatment today. Patient understands that they have control of the assessment and treatment, having the opportunity to stop treatment at any time. Patient also provided written consent at initial evaluation. ) Therapeutic Activity # of Activities: 4 Therapeutic Activity 1: Initial pelvic health evaluation education Activity 1 Comment: See above Therapeutic Activity 2: HEP Activity 2 Comment: Read over educational packet Therapeutic Activity 3: Internal PF mm assessment-defer d/t time constraint Activity 3 Comment: initiate next session:Pelvic Floor Assessment: Discussed rational, informed consent*, completion & findings explained. (*Consent for pelvic floor assessment, muscle testing and treatment: Patient received education regarding pelvic floor physical therapy assessment/treatment with use of 3D pelvic floor model for education on relevant pelvic floor anatomy. Assessment and treatment may include an external or internal (visual and/or digital/tactile) approach for assessment/treatment of perineal tissues, pelvic floor and pelvic girdle muscles. Patient provided freely given, reversible, informed, enthusiastic and specific consent for internal pelvic floor muscle assessment and treatment today. Patient understands that they have control of the assessment and treatment, having the opportunity to stop treatment at any time. Patient also provided written consent at initial evaluation. ) Home Exercise Program: Created Time Entry Total Treatment Time Start Time: 1425 Stop Time: 1514 Time Calculation (min): 49 min PT Evaluation Time Entry PT Evaluation (Moderate) Time Entry: 40 PT Therapeutic Procedures Time Entry Therapeutic Activity Time Entry: 9 Sharda Lino PT documented in this encounter [facility] [id number] 02-06-2024 Telephone encounter Note [employer] sent w/ number for Dreampod for pt to call and schedule [facility] 02-06-2024 Miscellaneous Notes [facility] w/ number for pelvic health for pt to call and schedule Patient has pelvic physical therapy referral and has not received call from them for scheduling. Can you give patient their number to call and schedule appointment or help patient schedule thanks documented in this encounter [facility] 02-06-2024 Note Patient has pelvic p hysical therapy referral and has not received call from them for scheduling. Can you give patient their number to call and schedule appointment or help patient schedule thanks [facility] 02-06-2024 Telephone encounter Note Patient has pelvic physical therapy referral and has not received call from them for scheduling. Can you give patient their number to call and schedule appointment or help patient schedule thanks [facility] 02-06-2024 History of Present illness Narrative Rg Kelley 02/08/2024 Date Of : 1990 HPI: Rg Kelley is a 33 y.o. female The patient was seen today. She is here regarding fu pelvic pain and heavy menses. Pain worse with sex and menses. Ulsd 10/09 outside facility Genetic testing neg Menses once a month last 5-8 days heavy couple of days Lysteda desired rx sent Leaking urine Mixed stress and urge incont Used medication in past Ho IC; cystoscopy helped in past Urogyn referral placed Used control pills patch cont ocp paragard and mirena in past None helpful Has not used depo Will schedule with pelvic floor therapy Review Of Systems: Constitutional: No fever, chills or malaise; No weight change or fatigue Gastrointestinal ROS: No Indigestion, Heartburn, Nausea, vomiting, Diarrhea, Constipation,or Bowel Changes Genito-Urinary ROS: No Dysuria Psych ROS: No Depression, Homicidal thoughts,suicidal thoughts, or anxiety Physical Exam: Blood pressure 113/79, pulse 86, height 5' 8 (1.727 m), weight 184 lb (83.5 kg), currently . General: Alert, NAD Respirations: Normal respiratory effort Abdomen: Soft non-tender; No guarding, rebound or rigidity. Extremities: No calf tenderness and No edema bilaterally Pelvic: External genitalia: normal general appearance, no lesions Vaginal: normal mucosa without lesions/discharge Cervix: normal appearance, no cmt Adnexa: nontender, no pelvic masses Uterus: small, nontender +pelvic floor tenderness Assessment: Diagnosis Plan 1. Abnormal uterine bleeding (AUB) 2. Pelvic pain 3. Mixed stress and urge urinary incontinence Urinalysis with reflex microscopic Urine culture PLAN: Follow up for august 2024 annual. Orders Placed This Encounter Procedures Urine culture Urinalysis with reflex microscopic The primary encounter diagnosis was Abnormal uterine bleeding (AUB). Diagnoses of Pelvic pain and Mixed stress and urge urinary incontinence were also pertinent to this visit. 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 documented in this encounter [facility] 01-23-2024 Note HNO ID: [id number] Author: JAIME YE MD Service: ? Author Type: Resident Type: Progress Notes Filed: 02/09/2024 11:43 Note Text: [facility] RESIDENT [facility]INIC PROGRESS NOTE PATIENT: Rg Kelley MRD: [id number] DATE: January 23, 2024 IDENTIFYING INFORMATION: Rg is a 33 year old female with a history of MDD, PTSD, and insomnia. CHIEF COMPLAINT: nightmares SUBJECTIVE: Plan from last visit (01/08/24): - Patient to begin taking prazosin 1mg QHS, previously prescribed, she states she has at home - Begin Mirtazapine 15mg QHS - patient noted to be a high acute risk of suicide - pink slipped and walked to emergency room Prazosin was increased to 2mg via [employer]hart messages due to lack of efficacy. Patient asked how she feels that I walked her to the ED. She states she understands then began talking about something else. I revisited the topic later, she states she understands why I did it, and that she can still be fully honest with me, but is not 100% completely comfortable being honest with me. I gave her praise for her honesty and strong insight. Nightmares are less intense. Decreased nightmare frequency. Now she has 1 nightmare every other night. Would like to further decrease nightmares. Patient notes improvement in mental fogginess. Patient is now seeing trauma therapist once/week. She is able to do this because she pushed her mother and mother in law more to help with the kids more. Patient states her mother is not supportive because her mom's mother is not supportive. She notes this is still not helpful. : he is now seeing someone at the [facility]. Patient states she said I am doing what I need to do to get better, so you have to do what you hve to do to get better makes his own appointments now. This is a positive change. SI Patient states sometimes she has intrusive thoughts of suicide, and they go away But sometimes they linger. She denies any suicidal thoughts at all since starting the mirtazapine. Medication side effects: Patient notes 2nd AM after mirtazapine caused lightheadedness in the AM for 30 minutes. Then she cut the pill into quarters, and took 1 quarter of a pill for 1 week Then 1/2 pill for 1 week - no lightheadedness Then took 1 whole pills and had worsening nightmares. Suicidal/Homicidal Thoughts/Plans: patient denies any Substance Use History: below reviewed and updated today Denies any substance use history VITAL SIGNS: LMP 09/27/2021 (Approximate) LAB DATA: reviewed MENTAL STATUS EXAMINATION: Appearance: appears stated age, ,Female, well developed, well nourished, normal clothing, grooming is Within Normal Limits Activity: Normal , Steady gait Behavior: Cooperative, Good eye contact Speech: spontaneous , Normal rate, soft volume, Clear Mood: depressed Affect: mood congruent Thought Process: linear, goal directed Thought Content: negative cognitions of depression, No suicidal ideation, intent or plan., No homicidal ideation, intent or plan., No delusions or hallucinations noted or endorsed Cognition: Orientation: Person, Place, Time and Situation Attention: Intact Concentration: Intact Language: Intact naming, Intact repetition Estimated Intelligence: Average Memory: Intact recent memory, Intact remote memory Abstraction: Intact Insight: excellent Judgement: good RATING SCALES: PHQ-9 Score 01/21/2024 21 01/08/2024 20 05/08/2023 23 12/08/2022 24 11/29/2022 24 09/27/2022 24 24 24 07/07/2022 22 (0-4) minimal depression, (5-9) mild depression, (10-14) moderate depression, (15-19) moderately severe depression, (20-27) severe depression DANYEL - 7 SCORES Score 01/21/2024 19 01/08/2024 19 05/08/2023 19 12/08/2022 18 11/29/2022 18 09/27/2022 18 18 18 07/07/2022 20 (0-4) minimal anxiety, (5-9) mild anxiety, (10-14) moderate anxiety, (15-21) severe anxiety RISK ASSESSMENT: no acute risks noted. IMPRESSION: Rg is a 32 year old /Multicultural female, with pertinent PMH of iron deficiency anemia, interstitial cystitis, and migraines who presented to our office to establish care. Patient's psychiatric history includes prior diagnoses of PTSD, depression, anxiety, 1 hospitalization at age 19, 0 suicide attempts, and prior treatment with Seroquel + Prozac at age 20. Patient's family history is significant for PTSD, depression. Patient reports no history of substance use. Patient's psychiatric history and presentation is consistent with MDD and PTSD. There are no acute concerns for safety, but some chronic concerns. A safety plan was discussed with the patient and suicide risk assessment completed. Patient was not open to any medications today due to . Patient was agreeable to our plan below: Initial visit 12/08/22: - Not open to medications due to - Pt (more content not included)... [facility] 01-15-2024 Note [facility] Medical Records Department [address] [place] [address] History Physical Exam 01/15/24 1157 MR#: [id number] Acct: [id number] Name: RG KELLEY Rep #: [id number] : 1990 33 From: Zach Benoit DO PCP: Dr. Radha Agee MD Status:[facility] Location: [place] [address] History and Physical Date of Admission: 01/15/24 Chief Complaint: GERD Details: RG KELLEY, is a 33 F who presents to the office today for establishment with [facility]. Pt has a PMHx of migraines, hemorrhoids, anemia, MTHFR mutation and anxiety. She is here today for evaluation of epigastric pain that has been ongoing for a few months now. SHe has two young children at home and bends down a lot which increases her pain. SHe does not notice that certain foods are worse. Tried a two week course of omeprazole which typically works for her but this time it did not. Sometimes she will be nausea but does not vomit. She has dull LUQ pain that is constant. She underwent colonoscopy in August 2023 with hemorrhoid banding. She has a family history of both IBD and colon cancer. She denies vomiting, diarrhea, constipation or melena. Colonoscopy .07.10 - Perianal skin tags found on perianal exam. - The entire examined colon is normal. No specimens collected. - Internal hemorrhoids. Banded. CT abdomen/pelvis; 10.09.23;Abnormal appearance of the cecum and proximal ascending colon as described with circumferential wall thickening. Correlation with a barium enema or colonoscopy is recommended for further evaluation. Small lymph nodes are seen in the mesenteric fat in the right lower quadrant ROS Const Constitutional: No anorexia, fatigue, fever(s), weight change or sleep problems Eyes Eyes: No change in vision ENT ENT: No abnormal hearing, difficulty swallowing, mouth lesions, tongue swelling or throat swelling Resp Respiratory: No cough or shortness of breath Cardio Cardiology: No chest pain at rest, chest pain with exertion, shortness of breath or dyspnea on exertion Gastro GI: Positive for abdominal pain, heartburn and nausea/dyspepsia; No difficulty swallowing Genitourinary-Female: No difficulty urinating or burning urination Musc Musculoskeletal: No joint pain, joint swelling, muscle weakness or decreased muscle mass Skin Skin: No hair loss in leg, yellowing of the eye, itchy eyes, rash, skin ulcer or skin swelling Neuro Neurology: No abnormal hearing, abnormal movements, confusion, unsteady gait/balance or memory loss Psych Psychiatric: No anxiety, No confusion and No memory loss Endo Endocrine: No fatigue or weight change Aller/Imm Allergy/Immunologic: No itchy eyes, throat swelling or tongue swelling Uri/Lymp Hematologic/Lymphatic: No easy bleeding, easy bruising or enlarged lymph nodes Assessment and Plan Assessment and Plan (1) Colonic thickening: Status: Acute Plan: Pt is a 33 yo female here today for evaluation. She has had epigastric pain and heartburn for a few months now. It has been refractory to two week course of omeprazole. She has never had an EGD. I recommended we start with taking omeprazole daily for 8 weeks and get scheduled for an EGD. She is agreeable. Differential includes GERD, EOE or gastroparesis Pt also had findings of colonic thickening on CT abdomen pelvis in September 2023. She has a family hx of IBD and colon cancer. She denies all lower GI symptoms besides abdominal pain. Due to these findings on imaging and family hx I will order blood work for IBD and stool testing. Differential diagnosis includes IBD or unspecified colitis. -Restart omeprazole; 20 mg daily sent to pharmacy -EGD -Blood work and stool testing -F/u in 6 months (2) GERD (gastroesophageal reflux disease): Status: Acute Orders: Orders IBD Expanded Profile Today K63.9 - Disease of intestine, unspecified ROSEMARY + Protein Elect, Serum Today K63.9 - Disease of intestine, unspecified Immunoglobulins G/A/M/E Today K63.9 - Disease of intestine, unspecified CRP Today K63.9 - Disease of intestine, unspecified Erythrocyte Sed Rate Today K63.9 - Disease of intestine, unspecified Stool Lactoferrin/WBC Today K58.9 - Irritable bowel syndrome, unspecified, K63.9 - Disease of intestine, unspecified Pancreatic Elastase, Fecal Today K63.9 - Disease of intestine, unspecified Calprotectin, Stool Today K63.9 - Disease of intestine, unspecified Medications: New omeprazole 20 mg PO QDAY 90 caps 2RF I have examined the patient and the H P has been reviewed. There are no clinical changes since date of exam. 01/15/24 1157 Cosigner Signature (if applicable): CC: Dr. Radha Agee MD; Zach Friend, Signed [facility] 01-11-2024 Consult note Formatting of th is [...] TIME: 9:14 AM documented in this encounter [facility] 01-11-2024 Progress note Formatting of t [...] DATE: January 11, 2024 TIME: 9:14 AM [facility] Work Phone: 01-09-2024 Telephone encounter Note [...] them to communicate without playing phone tag [facility] 01-09-2024 Miscellaneous Notes Patient still had [...] playing phone tag documented in this encounter [facility] 01-08-2024 Telephone encounter Note Already sent by dr adams [facility] 01-08-2024 Miscellaneous Notes Already sent by [...] policy Protocols used: Medication Refill and Renewal Qaxr-NPVIV-FP Rx sent to pharm Call routed to Dr Prasad and [facility] sent S: Patient spoke with CAC nurse [...] school, work, or sleep) Protocols used: Vaginal Obexirvj-OTFIB-SX documented in this encounter [facility] 01-08-2024 Telephone encounter Note Mychart mssg sent [facility] 01-08-2024 Miscellaneous Notes Mychart mssg sent Addended by: CHRIS ADAMS on: 01/07/2024 02:02 PM Modules accepted: [...] call should be referred to that group. Kori Hudson 4. SYMPTOMS: Do you have any symptoms? If Yes, ask: What symptoms are you having? How bad are the symptoms (e.g., mild, moderate, severe) Itching, 5/10 burning, discharge, 5/10 painful urination 5. : Is there any chance that you are ? When was your last menstrual period? N/A Protocols used: Medication Question Itxo-LRCSU-BW documented in this encounter [id number] 01-08-2024 Note HNO ID: [id number] Author: DARNELL BLOUNT MD Service: ? Author Type: Resident Type: Progress Notes Filed: 01/11/2024 14:32 Note Text: ---- Attestation signed by Darnell Blount MD at 01/11/2024 2:32 PM Teaching attending- indirect supervision note: Reviewed pt's chart and agree with residents assessment and plan. Pt was not seen by me. Darnell Blount MD Adult and Geriatric Psychiatry ---- [facility] RESIDENT CLINIC PROGRESS NOTE PATIENT: Rg Kelley MRD: [id number] DATE: January 07, 2024 IDENTIFYING INFORMATION: Rg [...] with her. In a note from Dr. Nghia Kelsey on 05/08/23, her moved out in [...] help him wake up to go to work. She states he comes over to help [...] would see, who would have to clean up. patient had a thought about 10 days ago after she woke up from a PTSD-related nightmare at 4AM and thought If I shoot myself, will my children hear me. Patient has access to a firearm. She [...] have to clean it up. I don't know. Protective factors: children she takes care of, [...] Intact remote memory (more content not included)... [facility] 01-07-2024 Note Addended by: Michael ADAMS on: 01/07/2024 02:02 PM Modules accepted: Orders [facility] 01-07-2024 Note Addended by: Michael ADAMS on: 01/07/2024 02:02 PM Modules accepted: Orders [facility] 01-07-2024 Note Addended by: Michael ADAMS on: 01/07/2024 02:02 PM Modules accepted: Orders [facility] 01-07-2024 Miscellaneous Notes Addended by: CHRIS ADAMS on: 01/07/2024 02:02 PM Modules accepted: Orders Call/request routed to Dr Adams. [facility] sent S: Patient spoke with CAC nurse [...] call should be referred to that group. Kori Hudson 4. SYMPTOMS: Do you have any symptoms? If Yes, ask: What symptoms are you having? How bad are the symptoms (e.g., mild, moderate, severe) Itching, 5/10 burning, discharge, 5/10 painful urination 5. : Is there any chance that you are ? When was your last menstrual period? N/A Protocols used: Medication Question Phov-NNIKG-NU documented in this encounter [facility] 01-07-2024 Telephone encounter Note Call/request routed to Dr Prasad to change Rx to pt preferred T [facility] 01-04-2024 Telephone encounter Note SEE PREVIOUS TE S: Patient spoke with [facility] nurse regarding yeast infection B: Onset [...] policy Protocols used: Medication Refill and Renewal Smhg-QPMYW-HO [facility] 01-04-2024 Telephone encounter Note Rx sent to pharm [facility] 01-04-2024 Telephone encounter Note Call routed to Dr Prasad and [facility] sent [facility] 01-04-2024 Telephone encounter Note S: Patient spoke with [facility] nurse regarding yeast infection B: 1 [...] school, work, or sleep) Protocols used: Vaginal Liihvcrz-PJJKP-RY [facility] 01-04-2024 Telephone encounter Note Call/request routed to Dr Mong. Yu lopez sent [facility] 01-04-2024 Miscellaneous Notes Call/request routed to Dr Mong. Yu lopez sent S: Patient spoke with CAC [...] call should be referred to that group. Kori Hudson 4. SYMPTOMS: Do you have any symptoms? If Yes, ask: What symptoms are you having? How bad are the symptoms (e.g., mild, moderate, severe) Itching, 5/10 burning, discharge, 5/10 painful urination 5. : Is there any chance that you are ? When was your last menstrual period? N/A Protocols used: Medication Question Vsvm-TJCYP-DY documented in this encounter [facility] 01-04-2024 Telephone encounter Note S: Patient [...] call should be referred to that group. Kori Hudson 4. SYMPTOMS: Do you have any symptoms? If Yes, ask: What symptoms are you having? How bad are the symptoms (e.g., mild, moderate, severe) Itching, 5/10 burning, discharge, 5/10 painful urination 5. : Is there any chance that you are ? When was your last menstrual period? N/A Protocols used: Medication Question Bwvb-FXTVG-OX [id number] 01-03-2024 Telephone encounter Note Noted [id number] 01-03-2024 Miscellaneous Notes Noted Order placed documented in this encounter [id number] 01-03-2024 Telephone encounter Note Order placed [facility] 01-02-2024 History of Present illness Narrative Rg Kelley 01/02/2024 33 y.o. [...] Cancer Father Colon cancer Father 40 Other (02906) Father crohns Other (24714) Mother migraines Celiac disease Mother High Blood [...] Financial Resource Strain: Unknown (04/10/2022) Received from [facility] Overall Financial Resource Strain (CARDIA) Difficulty of Paying Living Expenses: Patient declined Food Insecurity: Unknown (04/10/2022) Received from [facility] Hunger Vital Sign Worried About Running Out of Food in the Last Year: Patient declined Ran Out of Food in the Last Year: Patient declined Transportation Needs: Unknown (04/10/2022) Received from [facility] PRAPARE - Transportation Lack of Transportation (Medical): Patient declined Lack of Transportation (Non-Medical): No Physical Activity: Unknown (04/10/2022) Received from [facility] Exercise Vital Sign Days of Exercise per Week: Patient declined Minutes of Exercise per Session: Patient declined Stress: Stress Concern Present (04/10/2022) Received from [facility] - Occupational Stress Questionnaire Feeling of Stress : Very much Social Connections: Moderately Integrated (04/10/2022) Received from [facility] Social Connection and Isolation Panel [NHANES] Frequency of Communication with Friends and Family: More than three times a week Frequency of Social Gatherings with Friends and Family: More than three times a week Attends Hindu Services: More than 4 times per year Active Member of Clubs or Organizations: No Attends Club or Organization Meetings: Never Marital Status: Intimate Partner Violence: Not At Risk (07/17/2022) Humiliation, Afraid, Rape, and Kick questionnaire Fear of Current or Ex-Partner: No Emotionally Abused: No Physically Abused: No Sexually Abused: No Housing Stability: Unknown (04/10/2022) Received from [facility] Housing Stability Vital Sign Unable to Pay [...] ( 1 PO) Take by mouth. rizatriptan GEOGRAPHIC INFORMATION SYSTEM SURVEYOR (Maxalt-GEOGRAPHIC INFORMATION SYSTEM SURVEYOR) 10 MG disintegrating tablet Take 1 tablet [...] AM Result Value Ref Range TESTOSTERONE BY GAS OR WATER METER INSTALLER 10 9 - 55 ng/dL TESTOSTERONE, FREE BY GAS OR WATER METER INSTALLER 1.3 1.3 - 9.2 pg/mL SEX HORMONE [...] Vaginosis (BV), TMA ([facility]) 2. Pelvic pain [facility] 3. Dyspareunia in female PLAN: -check for bv and yeast -rx diflucan -reviewed US in media and labs ordered by Dr Prasad - all wnl -plan to try PF PT Follow up for REVENUE TAX SPECIALIST US and f/u visit w/ Shanice. Orders Placed This Encounter Procedures SureSwab(R) Adv Bacterial Vaginosis (BV), TMA ([facility]) Sureswab(R) Adv Letitia Vaginitis (CV), TMA ([facility]) [facility] Standing Status: Future Standing Expiration Date: 01/01/2025 Referral Priority: Routine Referral Type: Therapy Referral Reason: Eval and Treat Requested Specialty: Physical Therapy Number of Visits Requested: [address] in [address] encounter [facility] 01-01-2024 Telephone encounter Note Call routed to Dr Prasad to place imaging order and mychart mssg sent to pt [facility] 01-01-2024 Miscellaneous Notes Call routed to Dr Prasad to place imaging order and mychart mssg sent to pt Name of caller: Rg Contact phone number: [phone] Relationship to Patient: patient Provider: Shanice Practice: OBGYN Chief Complaint/Reason for Call: Pt calling because she is supposed to schedule an ultrasound and follow up but order isn't in. Please advise. Best time of day caller can be reached: Any Patient advised that office/PCP has 24-48 business hours to return their call: documented in this encounter [facility] 01-01-2024 Telephone encounter Note S: The patient is calling the [facility] about vulvar burning B: This started [...] < 24 hour duration.) Protocols used: Vulvar Qeknvimz-XTZIQ-SY [facility] 01-01-2024 Miscellaneous Notes S: The patient is calling the [facility] about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 thrown away) or can be laundered. CDC has a list of EPA approved cleaning products on their website - https://www.cdc.gov/coronavirus/2019-n cov/community/home/cleaning-disinfecti on.html https://www.[employer].Discoverly/Fatemeh bennettd-Dhrphsctpkv-Wljvcsff-Products-List.p df [employer] Stores with delivery and greens picker services: [employer]: Free greens picker at locations Delivery is $12.95 a month Website - [employer] [place]: Relay Operator $2.95 (1st order is free) Delivery is $14.95 Website - [employer] [place]: hot dip plating supervisor is free Delivery is $5.95 [employer] - [employer]: hot dip plating supervisor is $4.95 Delivery is $9.95 Website - [employer].Discover[employer]: hot dip plating supervisor is $4.95 Delivery is $9.95 Website - [employer]: Can be ordered for delivery and greens picker with [employer] Website - [employer]: Free deliver for first 3 orders of $35 or more Website - aldi.SocialMeterTV Will deliver from CVS, Me[employer], [employer], and Target. Annual membership is $99 Monthly membership is $14 documented in this encounter [facility] 07-18-2022 Miscellaneous Notes Patient delivered at [facility]. She was seen in our office for 9 visits. Please bill all visits if needed. Shreya Jordan RN documented in this encounter [facility] 07-18-2022 Obstetrics Note Baby was in [...] using breast compression for relief. Pt has [employer] insurance and [employer] faxing her prescription to momm xp. Momm xp information provided to the patient, unsure if covered for another pump, but she will contact them. Enc bf groups after dc. Denies further questions or needs at this time. T [facility] 07-17-2022 Note Formatting of this n [...] home. Denies any concerns at this time. [facility] 07-17-2022 Note Formatting of this n [...] Denies any concerns at this time. T [facility] 07-17-2022 Obstetrics Note This is the [...] Reviewed taking care of you and your baby. Enc exclusive bf until milk supply established unless medical need. Informed of support in the hospital and bf mothers' groups after dc. Verbalizes understanding. [facility] 07-16-2022 Obstetrics Note Initial visit with mom. [...] be a tongue tie. Will refer to river pilot for further evaluation. Primary RN, Jp Villegas updated and will notify river pilot. On demand, cue based, unlimited feeding reinforced, [...] encouraged to call as needed for LC. [facility] 07-16-2022 Plan of care note Problem: Goal: Experiences normal course Outcome: Progressing Goal: Appropriate maternal - bonding Outcome: Progressing Goal: Establishment of feeding pattern Outcome: Progressing Goal: Incisions, wounds, or drain sites healing without S/S of infection Outcome: Progressing Problem: Pain - Adult Goal: Verbalizes/displays adequate comfort level or baseline comfort level Outcome: Progressing Problem: Discharge Planning Goal: Discharge to home or other facility with appropriate resources Outcome: Progressing [facility] 07-16-2022 Note Formatting of this n ote is different from the original. Images from the original note were not included. Operative Note Patient: Rg Kelley : 1990 Date of Procedure: 07/16/2022 Principal Problem: 42 weeks gestation of PREOPERATIVE DIAGNOSES: 1. at 41w5d 2. Breech Malpresentation 3. Active Labor 4. Home midwifery care 5. Depression/PTSD POSTOPERATIVE DIAGNOSES: 1. Same 2. Living Infant, male PROCEDURE: Primary low transverse section SURGEON: Dr. Baptiste ASST: Dr. Goyo Flynn, Dr. Ojeda ANESTHESIA: spinal ANTIBIOTIC(S): 2g Ancef and Gentamycin VAG PREP (Iodine): Yes FINDINGS: Normal appearing uterus, ovaries and fallopian tubes FLUIDS: 1500 ml crystalloids URINE: 100 ml EBL: 500 ml QBL: Quantitative Blood Loss (mL): 530 mL DRAINS: duque catheter SPECIMENS: none COMPLICATIONS: none CONDITION: good, [...] care as documented in the resident's note. [facility] 07-16-2022 Note Formatting of this n [...] Quantitative Blood Loss (mL): 530 mL DRAINS: duque catheter SPECIMENS: none COMPLICATIONS: none CONDITION: good, [...] care as documented in the resident's note. [facility] 07-16-2022 History and physical note Images from the original note were not included. Obstetrical History and Physical CHIEF COMPLAINT: Contractions, active labor HISTORY OF PRESENT ILLNESS: The patient is a 31 y.o. female at 42w per patient admitted to L&D for active labor OB History 1 Para Term AB Living 0 SAB IAB Ectopic Multiple Live Births Denies DFM/VB/LOF/EDMONDS/EpigastricPain/Visual changes Estimated Due Date: Estimated Date of Delivery: 07/04/2022 PC-01 HARDSTOP. Current EGA is Unknown Is this patient being delivered between 07g1c-56o8a weeks with an acceptable medical indication (obstetric, maternal, and/or )? NA: Not Applicable: This patient is being delivered outside of the PC-01 range (83s4e-26c0h) for reasons indicated in the medical record. [...] reports in CareEverywhere was receiving PNC with [facility] in [place] Depression/PTSD -No medications -Mood stable Discussed with Dr. Baptiste, who agrees with plan. Melissa Vanegas DO 07/16/2022, 1:[address] [facility] 07-16-2022 History and physical note Images from the original note were not included. Obstetrical History and Physical CHIEF COMPLAINT: Contractions, active labor HISTORY OF PRESENT ILLNESS: The patient is a 31 y.o. female at 42w per patient admitted to L&D for active labor OB History 1 Para Term AB Living 0 SAB IAB Ectopic Multiple Live Births Denies DFM/VB/LOF/EDMONDS/EpigastricPain/Visual changes Estimated Due Date: Estimated Date of Delivery: 07/04/2022 PC-01 HARDSTOP. Current EGA is Unknown Is this patient being delivered between 99l3t-91d0x weeks with an acceptable medical indication (obstetric, maternal, and/or )? NA: Not Applicable: This patient is being delivered outside of the PC-01 range (23z4r-09d3n) for reasons indicated in the medical record. [...] reports in CareEverywhere was receiving PNC with [facility] in [place] Depression/PTSD -No medications -Mood stable Discussed with Dr. Baptiste, who agrees with plan. Melissa Vanegas DO 07/16/2022, 1:19 AM documented in this encounter [facility] 07-10-2022 Miscellaneous Notes Call made to [...] Trudy Obrien RN documented in this encounter [facility] 07-06-2022 Miscellaneous Notes Office visit with [...] Shreya Jordan RN documented in this encounter [facility] 06-29-2022 Miscellaneous Notes Patient scheduled for another provider today but was late to appointment. TAUS completed in room by Karol Salazar and confirms Breech presentation. Patient left office before I was able to see her. She is scheduled on 07/04/22 for INDRA and to discuss plan of care. Farida Malin APRN.CNM documented in this encounter [facility] 06-29-2022 Instructions Omaira Lund Ma - 06/29/2022 3:19 PM EDT SEQUENTIAL SCREENINGS The [facility] offers sequential screenings for women who [...] It will require an appointment with our loss control technician. This is not an ultrasound performed [...] the above symptoms, contact our office at [phone] and ask to speak with a nurse. After hours, you can call doctors registry at [phone] OR call [facility] at [phone] and ask to have the doctor leasing professional paged. If you consider this an emergency, dial 9-1-1 or go to your nearest emergency department. NEED HELP? Are you dealing with a violent or abusive relationship? Are you a victim of rape or sexual assult? Call [facility] [place] ([place]) 24 hour Crisis Hotline: 442.791.7016 or 953-249-2676. MANUAL Your Guide to a Healthy manual is now on-line. Visit [email or web address] megan to download your free copy documented in this encounter [facility] 06-23-2022 Miscellaneous Notes Can see KJ at 1120 or 150 on Sunday or 1130 on . Those are only openings w/ KJ. Thanks. Hannha Stauffer MD She can see CP- just [...] a c/s. . documented in this encounter [facility] 06-22-2022 Miscellaneous Notes RR- VB No. [...] time. Plans planning home - lives in [place]- would go to [place] if needed. Breech- D/w her recommendation for attempted ECV and risk of breech delivery. Other option would be c/s. Would like to discuss w/ who is not at appointment and will notify the office. Hannah Stauffer M.D. documented in this encounter [facility] 06-22-2022 Instructions Hannah AlarconELLA - 06/22/2022 11:41 AM EDT SEQUENTIAL SCREENINGS The [facility] offers sequential screenings for women who [...] It will require an appointment with our loss control technician. This is not an ultrasound performed [...] the above symptoms, contact our office at [phone] and ask to speak with a nurse. After hours, you can call doctors registry at [phone] OR call [facility] at [phone] and ask to have the doctor leasing professional paged. If you consider this an emergency, dial 9-1-1 or go to your nearest emergency department. NEED HELP? Are you dealing with a violent or abusive relationship? Are you a victim of rape or sexual assult? Call [facility] ([place]) 24 hour Crisis Hotline: 694.624.1891 or 328-557-4837. MANUAL Your Guide to a Healthy manual is now on-line. Visit [email or web address] megan to download your free copy documented in this encounter [facility] 06-16-2022 Miscellaneous Notes DM-Pt doing well. [...] Dominga Terrell MD documented in this encounter [facility] 06-16-2022 Instructions Hannah Alarcon MA - 06/16/2022 2:46 PM EDT SEQUENTIAL SCREENINGS The [facility] offers sequential screenings for women who [...] It will require an appointment with our loss control technician. This is not an ultrasound performed [...] the above symptoms, contact our office at [phone] and ask to speak with a nurse. After hours, you can call doctors registry at [phone] OR call [facility] at [phone] and ask to have the doctor leasing professional paged. If you consider this an emergency, dial 9-1-8 or go to your nearest emergency department. NEED HELP? Are you dealing with a violent or abusive relationship? Are you a victim of rape or sexual assult? Call [facility] ([place]) 24 hour Crisis Hotline: 306.990.7390 or 681-880-7534. MANUAL Your Guide to a Healthy manual is now on-line. Visit [email or web address] megan to download your free copy documented in this encounter [facility] 06-09-2022 Miscellaneous Notes BEATRICE-S: Rg Kelley is a 31 year old [...] Discussed potential risks and homebirth providers in [place]. 4) GBS testing today, discussed if positive treatment is recommended during labor and not an option at home with her finished goods inspector. Reviewed risk of untreated GBS and all questions answered. 5) Emotional support provided, tearful today discussing previous experience. Veronica Machuca APRN.CNM documented in this encounter [facility] 06-09-2022 Instructions Veronica Machuca APRN.CNM - [...] Control and Prevention: www.cdc.gov/groupbstrep/ March of Dimes http://www.marchofdimes.org// g wudk-x-obgmz-infection.aspx SIGNS AND SYMPTOMS OF LABOR 1. Contractions every 10 minutes or more often 2. Clear, pink, or brownish fluid (water) leaking from vagina 3. Feeling that baby is pushing down, pressure 4. Low, dull backache 5. Cramps that feel like a period 6. Cramps with or without diarrhea If you notice any of the above symptoms, contact our office at [phone] and ask to speak with a nurse. After hours, you can call doctors registry at [phone] OR call [facility] at [phone] and ask to have the doctor leasing professional paged. If you consider this an emergency, dial 9-1-3 or go to your nearest emergency department. NEED HELP? Are you dealing with a violent or abusive relationship? Are you a victim of rape or sexual assult? Call [facility] ([place]) 24 hour Crisis Hotline: 957.991.5997 or 777-011-6498. MANUAL Your Guide to a Healthy manual is now on-line. Visit [email or web address] megan to download your free copy documented in this encounter [facility] 05-02-2022 Telephone encounter Note S-Pt left message with Telephone Agent that she has cramping and flank pain for 3 weeks and they lost her urine B-Pt is not seen at [facility] and has OBGYN and PCP with [facility] R-NO CONTACT left message on voice mail to call her PCP or OBGYN @ [facility] as that is where she is being seen. Reason for Disposition Message left on unidentified voice mail. Phone number verified. Answer Assessment - Initial Assessment Questions . Protocols used: No Contact or Duplicate Contact [facility]-BGDDX-YV [facility] 05-02-2022 Miscellaneous Notes S-Pt left message with Telephone Agent that she has cramping and flank pain for 3 weeks and they lost her urine B-Pt is not seen at [facility] and has OBGYN and PCP with [facility] R-NO CONTACT left message on voice mail to call her PCP or OBGYN @ [facility] as that is where she is being seen. Reason for Disposition Message left on unidentified voice mail. Phone number verified. Answer Assessment - Initial Assessment Questions . Protocols used: No Contact or Duplicate Contact [id number] documented in this encounter [facility] 04-24-2022 Miscellaneous Notes Order signed. Veronica Machuca APRN.CNM 29w6d No UA or urine culture were ordered at 's 2/3 office visit. 's note does state check urine though. Can you file orders so patient can stop at lab? Shreya Jordan RN documented in this encounter [facility] 04-23-2022 Discharge summary Note Date/Time April 23, 2022 3:19pm [facility] Medical Records Department [address] [place] [address] Emergency Department Summary 04/23/22 MR#: [id number] Acct: [id number] Name: RG KELLEY Rep #:[id number] : 1990 31 From: Homero Barbosa MD PCP: OUT OF TOWN DOCTOR Status:REG ER Location: ED HPI History of Present Illness Chief Complaint: Headache Detail of Chief Complaint: Migraine headache Informant: patient Onset/Context/Timing Onset: Days (6 days ago) Context: Gradual Timing: Continuous Quality -Headache: Positive for Similar Prior Headaches Location: Initially unilateral, left now bilateral Current Severity: Severe Maximum Severity: Severe Worsened by: Light and sound Relieved by: Nothing Associated Symptoms/Injury Associated Symptoms: Positive for Nausea; Negative for Fever, Vomiting, Sore Throat, Sinus Pressure, Numbness, Tingling, Preceding Aura, Visual Changes, Blurred Vision, Photophobia or Visual Loss Injury - EDMONDS: Negative for Direct Trauma Narrative Narrative: Patient is a 31-year-old female with history of migraine headaches. Per review of outside records indicates patient has history of cluster headaches. She states she does not have history of cluster headaches. She states the last timeshe came to an emergency room was during her last in 2020. She is . Gestation is approximately 30 weeks. She states she took acetaminophen with no improvement. She states normally acetaminophen alleviatesher headache. She denies fever, chills night sweats pressure has ringing or ears, decreased hearing or drainage from her ears. She denies rhinorrhea, congestion or postnasal drainage. She denies sore throat. She denies neck pain or neck stiffness. She denies cardiac or respiratory symptoms. She does endorse nauseawithout vomiting diarrhea. She denies urologic symptoms. She denies paresthesia, anesthesia or motor weakness upper or lower extremity. She denies problems with coordination or balance. She denies trouble with speech or swallowing. She has had no ill contacts. Prior similar symptoms: Yes Recent Illness/Hospitalization: No [facility] Medical History (Updated 04/23/22 @ 17:[address] Homero Barbosa MD) Anemia PTSD (post-traumatic stress disorder) Allergy/AdvReac Type Severity Reaction Status Date / Time azithromycin Allergy Hives Verified 04/23/22 15:00 nitrofurantoin Allergy Hives Verified 04/23/22 15:00 tetracycline Allergy Hives Verified 04/23/22 15:00 Social History (Updated 04/23/22 @ 15:[address] Homero Barbosa MD) household members: children Smoking Status: Never smoker substance use type: does not use ROS ROS ED Constitutional Constitutional ED: Denies chills, fever(s), subjective, sweats or weight loss Eyes Eyes: Denies blurry vision, change in vision or diplopia ENT ENT ED: Denies ear pain, rhinorrhea or sore throat Cardiovascular Cardiovascular: Denies chest pain or palpitations Respiratory/Chest Respiratory/Chest: Denies cough, dyspnea or dyspnea on exertion Gastrointestinal Gastrointestinal: Reports nausea; Denies abdominal pain, constipation, diarrhea,melena or vomiting Genitourinary Genitourinary ED: Denies dysuria, hematuria or urinary frequency Musculoskeletal Musculoskeletal: Denies arthralgias, back pain, myalgias or neck pain Integumentary Denies abscess, Abrasions or rash Neurologic Neurologic: Reports headache(s) and other Details: Complete detailed HPI narrative. ; Denies paresthesias or weakness Psychiatric Psychiatric: Denies anxiety or depression Hematologic/Lymphatic Hematologic/Lymphatic: Denies easy bleeding or easy bruising EXAM Physical Exam Const Vital Signs: 04/23/22 15:00 04/23/22 16:56 Temperature 97 F L Temperature Source Temporal Pulse Rate 107 H 96 Respiratory Rate 18 16 Blood Pressure 131/92 H 124/74 H Blood Pressure Mean 105 90 Pulse Ox 100 99 Oxygen Delivery Method Room Air Room Air Positive well nourished, well developed and obese Constitutional Narrative: Patient does not appear in obvious distress. She is quiet. She is sitting in aroom with the lights out. General Appearance ED: well developed; Negative for cyanotic, diaphoretic or pallor Nutritional Appearance: obese HEENT Reports normocephalic, TM's clear and moist mucous membranes atraumatic; Negative for temporal artery tenderness or vesicular rash Face and Sinus: Negative for sinus tenderness Tympanic Membrane ED: Yes TM's clear Eyes PERRL and EOMs intact bilaterally Eyes Narrative: There is no APD. Funduscopic exam reveals normal cup-to-disc ratio. There is no papilledema. There is no evidence of hemorrhaging or abnormalities of the vessels. There is no nystagmus. The conjunctive is pink. General Eye ED: Negative for pale conjunctiva or scleral icterus Neck no lymphadenopathy, supple, no meningeal signs and no JVD Resp normal respiratory effort and clear to auscultation bilaterally Cardio regular rhythm, S1 normal heart sound, S2 normal heart sound and no murmurs; Negative for regular rate Rate: tachycardic GI non-tender and non-distended GI Narrative: Fundus is several fingerbreadths above the umbilicus. Auscultation: normoactive bowel sounds Palpation: soft Back/Spine no CVA tenderness Extremity normal to inspection, full ROM and normal capillary refill Neuro oriented x3, CN's II-XII intact bilaterally and no sensory deficits noted Holden Coma Scale: document GCS findings Spontaneous Obeys Commands Oriented 15 Sensorium / Orientation: awake and alert Coordination / Balance: [id number] test normal Speech: speech normal Gait (Neuro): normal gait Motor Exam: strength 5/5 throughout Psych Psych Narrative: Affect is flat. Skin General Skin Exam: elasticity normal and turgor normal; Negative for jaundice orpallor Lesions: no lesions Rashes: no rashes MDM MDM MDM Narrative Medical decision making narrative: Patient presents with headache for 6 days. Since she reports history of migraine headache she was treated with IV Benadryl and Reglan. She was not given Toradol since she is in her third trimester. If new medication ordered does not significantly improve her headache or alleviate her headache we will treat with droperidol. Review of outside records as previously documented indicates history of cluster headache syndrome not migraine headaches. She also has history of MTHFR mutation and anemia. There is also a history of hemorrhoids. Prior imaging results are not available for review. From outside records there is no family history of subarachnoid hemorrhage. Since patient has a nonfocal neurologic exam and headache was not abrupt and there are no meningeal findings CT of the head was not obtained. I was informed by nursing staff the patient's pain is a 1. In light of this shewill be discharged to home. Discharge Plan Triage Chief Complaint: Headache ED Provider: Homero Barbosa Dx/Rx/DC Orders Clinical Impression: Intractable migraine without aura and with status migrainosus, MTHFR mutation, Anemia Instructions: ED, Migraine (Classical) Primary Care Provider: [facility] Doctor,Out of Referrals: [facility] Doctor,Out of [Primary Care Provider] - As Needed Disposition Disposition: Home, Self Care What to do if you have Problems For any increased pain, shortness of breath, bleeding, nausea or vomiting, chestpain, or any unexpected problems, contact your Primary Care Provider. Call Doctors Registry ([phone]) or report to the closest Emergency Room. Call 911 if necessary. 04/23/22 1727 <Electronically signed by Homero Barbosa MD> Cosigner Signature (if applicable): CC: ~ Signed [facility] Work Phone: 1(785) 437-441102-03-2023 Miscellaneous Notes* Quick Notes - Amanda Alcaraz MD - 04/21/2022 2:23 PM EST SW- Add on visit for a migraine [...] of pre eclampsia at this time. Recommend [facility] for Reglan and Benadryl but pt declines at this time. She will call if EDMONDS persists and discussed signs and symptoms of pre e - Tdap declined - LARC signed - Discussed again recommendation for delivery at hospital - RTO 2 wks Amanda Alcaraz DO [facility] Instructions* Patient Instructions* Hannah Alarcon MA - 04/21/2022 2:01 PM EST SEQUENTIAL SCREENINGS The [facility] offers sequential screenings for women who are interested in screenings for chromosomal abnormalities and certain defects during a . The sequential screen combinesultrasound and blood tests to determine the risk [...] this testing. It will require an appointment withour loss control technician. This is not an ultrasound performed [...] the above symptoms, contact our office at [phone] and ask to speak with anurse. After hours, you can call doctors registry at [phone] OR call [facility] at [phone] ask to have the doctor leasing professional paged. If you consider this an emergency, dial 9-5-0 or go to your nearest emergency department. NEED HELP? Are you dealing with a violent or abusive relationship? Are you a victim of rape or sexual assult? Call [facility] [place] ([facility] 24 hour Crisis Hotline: 452.640.3751 or 815-100-9091. MANUAL Your Guide to a Healthy manual is now on-line. Visit [email or web address] to download your free copy documented [facility]23 Miscellaneous Notes* Telephone Encounter - Suad Jalloh Pss - 04/10/2022 2:40 PM EST Patient asking to please send kareem * Telephone Encounter - Trudy Obrien RN - 04/10/2022 12:42 PM EST Spoke with patient to see if another pharmacy provider can send script. Patient states [facility] [place] [facility] to [facility]. Order pended with new pharmacy. Please advise. Trudy Obrien RN * Telephone Encounter - Dyan Duran Pss - 04/10/2022 12:33 PM EST [facility] not fill the CPD order that was sent to them this morning. Please advise Dr Parisi that this will need to go to another pharmacy. documented [facility] History of Present illness Narrative* Beatrice Parisi DO - 04/10/2022 10:20 AM EST This note was created using [employer]. Subjective Rg Kelley is a 31 year [...] she was started on zoloft 25mg. She stayedon this med for 6-8 weeks and saw [...] daughter. 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 He has been working off/on which is [...] nifedipine Beatrice Parisi DO [facility]01[facility]23 Miscellaneous Notes* Telephone Encounter - Amanda Alcaraz MD - 04/03/2022 10:28 AM EST Filed thanks * Telephone Encounter - Shreya Jordan RN - 04/03/2022 10:11 AM EST Please file. Shreya Jordan RN * Telephone Encounter - Amanda Alcaraz MD - 04/03/2022 9:47 AM EST Please pend 28 wk labs and then assist in scheduling 28 wk labs appointment with OB visit same day thanks * Telephone Encounter - Marika Isaac RN - 04/03/2022 9:26 AM EST 26w6d Last seen in office on 02/27/22. No upcoming appointments or lab orders. Plans on home . Marika Isaac RN [facility]22 Miscellaneous Notes* Quick Notes - Amanda Alcaraz MD - 02/27/2022 2:11 PM EST SW- Add on visit for thyroid concerns. [...] advice Amanda Alcaraz DO documented in [facility] encounterP[facility]12-[facility]22 Instructions* Patient Instructions* Hannah Alarcon MA - 02/27/2022 1:48 PM EST SEQUENTIAL SCREENINGS The [facility] offers sequential screenings for women who are interested in screenings for chromosomal abnormalities and certain defects during a . The sequential screen combinesultrasound and blood tests to determine the risk [...] this testing. It will require an appointment withour loss control technician. This is not an ultrasound performed [...] the above symptoms, contact our office at [phone] and ask to speak with anurse. After hours, you can call doctors registry at [phone] OR call [facility] at [phone] ask to have the doctor leasing professional paged. If you consider this an emergency, dial 9-1-2 or go to your nearest emergency department. NEED HELP? Are you dealing with a violent or abusive relationship? Are you a victim of rape or sexual assult? Call [facility] ([place]) 24 hour Crisis Hotline: 234.999.1263 or 814-343-3275. MANUAL Your Guide to a Healthy manual is now on-line. Visit [email or web address] to download your free copy documented in this encounterPike [facility] Hospital12-12-2022 Miscellaneous Notes* Telephone Encounter - Zandra Mccabe LPN - 02/27/2022 11:42 AM EST Patient notified * Telephone Encounter - Amanda Alcaraz MD - 02/27/2022 11:18 AM EST She needs a visit has not been seen since 13 weeks * Telephone Encounter - Marika Isaac RN - 02/27/2022 11:06 AM EST 21w6d Patient was seen in [place] today so that she could have her anatomy US. States she did speak with aprovider who suggested she contact our office. Patient asking if she can have her thyroid checked. Her symptoms include - eyelashes falling out, fatigue, swollen weeks face, hard swollen glands in her throat. Marika Isaac RN documented in this encounterP[facility]12-05-2022 Miscellaneous Notes* Telephone Encounter - Shreya Jordan RN - 02/20/2022 12:12 PM EST Patient notified. Shreya Jordan RN * Telephone Encounter - Hannah Stauffer MD - 02/20/2022 11:49 AM EST That is fine to take. Omeprazole 20 mg 1-2 times a day as needed for heartburn is fine. Can get this [id number]. Hannah Stauffer MD * Telephone Encounter - Shreya Jordan RN - 02/20/2022 10:32 AM EST Patient calling with update. States she looked it up and she took prilosec last and it helped. Asking if she should take that again or try something else first? She has 2 weeks of medication at home already if that is okay. Shreya Jordan RN * Telephone Encounter - Jazmin Peralta LPN - 02/20/2022 10:15 AM EST 20w6d Pt calling and stated that she is having issues with reflux and has been using OTC medications withno relief. Pt wanting to know what other options she can try. [facility] [place] Please advise. Pt is staying upright 4 hours after eating, she is eating small meals with no relief. Jazmin Peralta LPN documented in this encounterP[facility]11-22-2022 Miscellaneous Notes* Telephone Encounter - Aline Nam - 02/07/2022 7:27 AM EST Patient had scheduled herself via [employer] on 11/29/21, just before Provider closed her schedule for new patients. Aline Mares Pss documented in this encounterPike [facility] Hospital11-15-2022 Miscellaneous Notes* Quick Notes - Marya Chester MD - 01/31/2022 3:20 PM EST Patient left without being seen. Per reports she thought her anatomy US was today and declined a medical visit. Marya Chester MD documented in this encounterP[facility]11-15-2022 Instructions* Patient Instructions* Omaira Lund Ma - 01/31/2022 2:31 PM EST SEQUENTIAL SCREENINGS [facility] offers sequential screenings for women who are interested in screenings for chromosomal abnormalities and certain defects during a . The sequential screen combinesultrasound and blood tests to determine the risk [...] this testing. It will require an appointment withour loss control technician. This is not an ultrasound performed [...] the above symptoms, contact our office at [phone] and ask to speak with anurse. After hours, you can call doctors registry at [phone] OR call [facility] at [phone] ask to have the doctor leasing professional paged. If you consider this an emergency, dial 9-1-6 or go to your nearest emergency department. NEED HELP? Are you dealing with a violent or abusive relationship? Are you a victim of rape or sexual assult? Call [facility] ([place]) 24 hour Crisis Hotline: 869.466.2465 or 402-956-2176. MANUAL Your Guide to a Healthy manual is now on-line. Visit [email or web address] to download your free copy documented in this encounterPike [facility] Hospital10-21-2022 Miscellaneous Notes* Telephone Encounter - Mera Headley RN - 01/06/2022 1:06 PM EDT Called Rg Kelley and identified by name [...] is considered screening and not diagnostic, so thisresult greatly reduces, but does not eliminate the chance that the fetus could have trisomy 21, trisomy 18, trisomy 13 or sex chromosome aneuploidy. Rg Kelley indicated understanding this information. Patient advised to follow up with AFP neural tube defect screening (blood draw) at 16-18 weeks gestation and 18-20 week detailed anatomy ultrasound. Also instructed to follow-up with Primary OB Provider. Mera Headley RN * Telephone Encounter - Mera Headley RN - 01/06/2022 9:03 AM EDT Tried calling pt with [id number] results. Mailbox full, unable to leave message. Will try to reach patient via [employer] message. Mera Headley RN [facility] documented in this encounterPike [facility] Hospital10-14-2022 Miscellaneous Notes* Telephone Encounter - Luz Elena Dickson MA - 12/30/2021 1:05 PM EDT Patient called and identified by name and date of . Rg Kelley was informed of negative Sequential screen first trimester. Rg Kelley was informed of her risk assessment for Trisomy 21and 18. Based on these results Dr. Castro s recommendation is for patient to follow-up with Sequential second trimester screening (01/19/22-02/02/22) and level II anatomy scan after 18wks. Patient verbalized understanding . Luz Elena Dickson MA documented in this encounterPike [facility] Hospital10-13-2022 Miscellaneous Notes* Quick Notes - Amanda Alcaraz MD - 12/29/2021 4:17 PM EDT SW- Some fatigue. No pain, vb, lof. [...] wks Amanda Alcaraz DO documented in this encounterPike [facility] Hospital10-13-2022 History of Present illness Narrative* Whitney Bowles Ma - 12/29/2021 3:58 PM EDT Patient here for First Trimester Screening. See ultrasound report for details. Options for genetic screening and diagnosis discussed with the patient. Patient opts for first trimester screening and the sequential screening protocol. Limitations of screening tests discussed withthe patient. Amanda Alcaraz MD documented in this encounterPike [facility] Hospital10-13-2022 Instructions* Patient Instructions* Whitney Bowles Ma - 12/29/2021 3:32 PM EDT SEQUENTIAL SCREENINGS [facility] offers sequential screenings for women who are interested in screenings for chromosomal abnormalities and certain defects during a . The sequential screen combinesultrasound and blood tests to determine the risk [...] this testing. It will require an appointment withour loss control technician. This is not an ultrasound performed [...] the above symptoms, contact our office at [phone] and ask to speak with anurse. After hours, you can call doctors registry at [phone] OR call [facility] at [phone] ask to have the doctor leasing professional paged. If you consider this an emergency, dial 8--8 or go to your nearest emergency department. NEED HELP? Are you dealing with a violent or abusive relationship? Are you a victim of rape or sexual assult? Call [facility] ([place]) 24 hour Crisis Hotline: 104.762.9798 or 014-541-4930. MANUAL Your Guide to a Healthy manual is now on-line. Visit [email or web address] to download your free copy SEQUENTIAL TESTING PROCESS Sequential Screen First Trimester Today you are currently: 13w2d weeks 12/29/2021: Ultrasound and blood test. Sequential Screen Second Trimester (16-17 Weeks Gestation) When you are called with your results, the nurse will give the optimal draw dates for the Sequential screen second trimester. Blood testing can be done at any [facility] lab. Please report to the any panel machine operator office front end software engineer for the Sequential Part 2 requisition and order before reporting to the lab. Your weight will need to be documented for testing. Please note: -No appointment is need for your second blood draw. -Office hours are 8 am to 4:30 pm. -Please have testing done prior to 12 noon on Sunday's -Once the sequential testing is started, in the first trimester the only follow- up will be for the sequential screen second trimester. Please don't have a Quad screen ordered by another provider. If you or your Provider have any questions please call your maternal medicine office, for east side please call [phone] or for the West side call [phone] and ask for the the nurse. Thank you. documented in this encounterPike Community Hospital10-04-2022 Miscellaneous Notes* Telephone Encounter - Marya Chester MD - 12/20/2021 12:05 PM EDT [facility]. Dimenhydrinate crosses the placenta. The risk of abnormalities was not increased following maternal use of dimenhydrinate during any trimester of . Dimenhydrinate may be used for the adjunctive treatment of nausea and vomiting of (ACOG 189 2018; SOGC [Salty 2016]). Most medications are fine to use a few times in but can't say anything is 100% safe. Marya Chester MD * Telephone Encounter - Shreya Jordan RN - 12/20/2021 9:50 AM EDT 12w0d Patient is on a [address] and is having a lot of nausea and motion sickness. Asking if shecan take dramamine to help. Please advise. Shreya Jordan RN documented in this encounterPike Community Hospital09-15-2022 History of Past illness Narrative* Problem Noted Date Diagnosed Date Resolved Date Supervision of other normal , antepartum 12/01/2021 10/20/2022 Overview: Patient planning for home . She understands risks associated with a home delivery. She would like co care. If any complications with the , she will consider delivery at [facility]. Attempted home with first delivery, and delivered at [facility] to receive epidural. SW Short interval between pregn ancies affecting , antepartum 11/24/2021 10/20/2022 Overview: 11/24/2021atient delivered her last child January 31, 2021. TKRN Patient request for diagnostic testing 11/24/2021 10/20/2022 Overview: 11/24/2021 Patient desires aneuploidy screening. I have given her contact information for [facility] to check on insurance coverage.Melisa Hutton [...] is transferring care from Dr. Doran in [place]. She is 23 weeks 2 days by [...] of this encounter (statuses as of 10/20/2022) [facility] History of Past illness Narrative* Problem Noted Date Diagnosed Date Resolved Date Supervision of other normal , antepartum 12/01/2021 10/20/2022 Overview: Patient planning for home . She understands risks associated with a home delivery. She would like co care. If any complications with the , she will consider delivery at [facility]. Attempted home with first delivery, and delivered at [facility] to receive epidural. SW Short interval between pregn ancies affecting , antepartum 11/24/2021 10/20/2022 Overview: 11/24/2021atient delivered her last child January 31, 2021. TKRN Patient request for diagnostic testing 11/24/2021 10/20/2022 Overview: 11/24/2021 Patient desires aneuploidy screening. I have given her contact information for [facility] genetics to check on insurance coverage.Melisa Hutton [...] is transferring care from Dr. Doran in [place]. She is 23 weeks 2 days by [...] of this encounter (statuses as of 12/08/2022) [facility] History of Past illness Narrative* Problem Noted Date Diagnosed Date Resolved Date Supervision of other normal , antepartum 12/01/2021 10/20/2022 Overview: Patient planning for home . She understands risks associated with a home delivery. She would like co care. If any complications with the , she will consider delivery at [facility]. Attempted home with first delivery, and delivered at [facility] to receive epidural. SW Short interval between pregn ancies affecting , antepartum 11/24/2021 10/20/2022 Overview: 11/24/2021atient delivered her last child January 31, 2021. TKRN Patient request for diagnostic testing 11/24/2021 10/20/2022 Overview: 11/24/2021 Patient desires aneuploidy screening. I have given her contact information for [employer] to check on insurance coverage.Melisa Hutton [...] is transferring care from Dr. Doran in [place]. She is 23 weeks 2 days by [...] of this encounter (statuses as of 05/08/2023) [facility]15[facility] Miscellaneous Notes* Telephone Encounter - Maria D Galindo RN - 12/01/2021 9:57 AM EDT PRAF form completed. ERROL Dean, RN OB Clinical Navigator [phone] [facility] History of Present illness Narrative* Amanda [...] use: No Multivitamin with Folic acid: Yes Sabianist or heritage: No Would refuse blood transfusion [...] pain. KRILL OIL ORAL Take by mouth. Vsyjyobo-Ci-Wpt-Fe-FA ( VITAMIN) tab Take 1 tablet by [...] documented. SBIRT Rg [place]kta was given the 4's screening tool. Rg answered as follows: OB [...] prn. Amanda Alcaraz DO [facility] Instructions* Patient Instructions* Hannah Alarcon MA - 11/30/2021 11:48 AM EDT Please select the following link to access the [facility] Your Guide to a Healthy . [email or web address] [facility] Miscellaneous Notes* Telephone Encounter - Marya Chester MD - 11/28/2021 12:42 PM EDT She probably strained something in her abdomen. She can follow up as scheduled. Marya Chester MD * Telephone Encounter - Marika Isaac RN - 11/28/2021 8:14 AM EDT 8w6d [facility] Miscellaneous Notes* Telephone Encounter - Megan [...] advise. Marika Isaac RN [facility] Miscellaneous Notes* Telephone Encounter - Marika Isaac RN - 11/01/2021 9:24 AM EDT PNOB scheduled * Telephone Encounter - Melisa Hutton RN - 11/01/2021 9:12 AM EDT Left message for patient to return phone call. Patient has an appointment with Dr Alcaraz for NOB appointment. Please schedule PNOB appointment. [facility] Hospital Discharge instructions* Instructions* Hakeem Wright MD - 06/02/2021 Call your doctor in the morning; return for fever/vomiting; can use tylenol for pain * Attachments The following attachments cannot be sent through Care Everywhere. * Cluster Headache (Canadian) documented in this encounterSUM[facility] Work Phone: 1(187) 973-362102-02-2022 Hospital Discharge instructions* Instructions* Willam Benjamin MD [...] . Willam Benjamin M.D. documented in this [facility] Work Phone: 1(756) 963-930411-14-2021 History of Past illness Narrative* Problem Noted [...] is transferring care from Dr. Doran in [place]. She is 23 weeks 2 days by [...] of this encounter (statuses as of 12/20/2021) [facility] History of Past illness Narrative* Problem [...] is transferring care from Dr. Doran in [place]. She is 23 weeks 2 days by [...] of this encounter (statuses as of 12/29/2021) [facility] of Past illness Narrative* Problem [...] is transferring care from Dr. Doran in [place]. She is 23 weeks 2 days by [...] of this encounter (statuses as of 12/29/2021) [facility] History of Past illness Narrative* Problem [...] is transferring care from Dr. Doran in [place]. She is 23 weeks 2 days by dates. She states baby has been active. Patient signed a release form to obtain her medical records from Dr. Droan's office. TKRN Abnormal ultrasonic finding on screeni ng of mother 09/30/2020 12/05/2021 Overview: - pyelectasis on US in 09/30/2020 -Resolved on 25 weeks scan associated with use of clomiphene, ant epartum 09/30/2020 12/05/2021 documented as of this encounter (statuses as of 12/30/2021) [facility] History of Past illness Narrative* Problem [...] is transferring care from Dr. Doran in [place]. She is 23 weeks 2 days by [...] of this encounter (statuses as of 01/01/2022) [facility] History of Past illness Narrative* Problem [...] is transferring care from Dr. Doran in [place]. She is 23 weeks 2 days by [...] of this encounter (statuses as of 01/06/2022) [facility] History of Past illness Narrative* Problem [...] is transferring care from Dr. Doran in [place]. She is 23 weeks 2 days by [...] of this encounter (statuses as of 01/06/2022) [facility] History of Past illness Narrative* Problem [...] is transferring care from Dr. Doran in [place]. She is 23 weeks 2 days by [...] of this encounter (statuses as of 01/31/2022) [facility] History of Past illness Narrative* Problem [...] is transferring care from Dr. Doran in [place]. She is 23 weeks 2 days by [...] of this encounter (statuses as of 02/07/2022) [facility] of Past illness Narrative* Problem [...] is transferring care from Dr. Doran in [place]. She is 23 weeks 2 days by [...] of this encounter (statuses as of 02/20/2022) [facility] of Past illness Narrative* Problem [...] is transferring care from Dr. Doran in [place]. She is 23 weeks 2 days by [...] of this encounter (statuses as of 02/27/2022) [facility] Narrative* Problem [...] is transferring care from Dr. Doran in [place]. She is 23 weeks 2 days by [...] of this encounter (statuses as of 02/27/2022) [facility] of Past illness Narrative* Problem [...] is transferring care from Dr. Doran in [place]. She is 23 weeks 2 days by [...] of this encounter (statuses as of 02/27/2022) [facility] of Past illness Narrative* Problem [...] is transferring care from Dr. Doran in [place]. She is 23 weeks 2 days by [...] of this encounter (statuses as of 04/03/2022) [facility] of Past illness Narrative* Problem [...] is transferring care from Dr. Doran in [place]. She is 23 weeks 2 days by [...] of this encounter (statuses as of 04/10/2022) [facility] of Past illness Narrative* Problem [...] is transferring care from Dr. Doran in [place]. She is 23 weeks 2 days by [...] of this encounter (statuses as of 04/11/2022) [facility] of Past [facility] Narrative* Problem [...] is transferring care from Dr. Doran in [place]. She is 23 weeks 2 days by [...] of this encounter (statuses as of 04/25/2022) [facility] of Past [facility] Narrative* Problem [...] is transferring care from Dr. Doran in [place]. She is 23 weeks 2 days by [...] of this encounter (statuses as of 04/27/2022) [facility] of Past illness Narrative* Problem [...] is transferring care from Dr. Doran in [place]. She is 23 weeks 2 days by [...] of this encounter (statuses as of 06/11/2022) [facility] Narrative* Problem [...] is transferring care from Dr. Doran in [place]. She is 23 weeks 2 days by [...] of this encounter (statuses as of 06/16/2022) [facility] Narrative* Problem [...] is transferring care from Dr. Doran in [place]. She is 23 weeks 2 days by [...] of this encounter (statuses as of 06/22/2022) [facility] Narrative* Problem [...] is transferring care from Dr. Doran in [place]. She is 23 weeks 2 days by [...] of this encounter (statuses as of 06/23/2022) [facility] Narrative* Problem [...] is transferring care from Dr. Doran in [place]. She is 23 weeks 2 days by [...] of this encounter (statuses as of 06/30/2022) [facility] Narrative* Problem [...] is transferring care from Dr. Doran in [place]. She is 23 weeks 2 days by [...] of this encounter (statuses as of 07/07/2022) [facility] Narrative* Problem [...] is transferring care from Dr. Doran in [place]. She is 23 weeks 2 days by [...] of this encounter (statuses as of 07/10/2022) [facility] Narrative* Problem [...] is transferring care from Dr. Doran in [place]. She is 23 weeks 2 days by [...] of this encounter (statuses as of 07/18/2022) [facility] Narrative* Problem [...] is transferring care from Dr. Doran in [place]. She is 23 weeks 2 days by [...] of this encounter (statuses as of 09/01/2022) [facility] Narrative* Problem [...] is transferring care from Dr. Doran in [place]. She is 23 weeks 2 days by [...] of this encounter (statuses as of 09/07/2022) [facility] Narrative* Problem [...] is transferring care from Dr. Doran in [place]. She is 23 weeks 2 days by [...] of this encounter (statuses as of 10/12/2022) [facility] Narrative* Problem [...] is transferring care from Dr. Doran in [place]. She is 23 weeks 2 days by [...] of this encounter (statuses as of 10/12/2022) [facility] Narrative* Problem [...] is transferring care from Dr. Doran in [place]. She is 23 weeks 2 days by [...] of this encounter (statuses as of 10/13/2022) [facility] Narrative* Problem Noted Date Resolved Date Ultrasound recheck of pyelectasis, antepar patrick 10/11/2020 11/23/2020 Overview: 11/23/20 - resolved! - Marya Chester MD 10/11/2020 Bilateral mild pyelectasis noted on previous ultrasounds. Anatomy US ordered at time of NOB. SW Pruritus of , antepartum 10/06/2020 01/30/2021 Overview: 10/06/2020 Bile acids and LFT's pend. [facility] 01/30/2021 Overview: 09/30/2020 She is transferring care from Dr. Doran in [place]. She is 23 weeks 2 days by dates. She states baby has been active. Patient signed a release form to obtain her medical records from Dr. Doran's office. TKRN documented as of this encounter (statuses as of 11/01/2021) [facility] of Past [facility] Narrative* Problem Noted Date Resolved Date Ultrasound recheck of pyelectasis, antepar patrick 10/11/2020 11/23/2020 Overview: 11/23/20 - resolved! - Marya Chester MD 10/11/2020 Bilateral mild pyelectasis noted on previous ultrasounds. Anatomy US ordered at time of NOB. SW Pruritus of , antepartum 10/06/2020 01/30/2021 Overview: 10/06/2020 Bile acids and LFT's pend. SW with care elsewhere, [facility] 09/30/2020 01/30/2021 Overview: 09/30/2020 She is transferring care from Dr. Doran in [place]. She is 23 weeks 2 days by dates. She states baby has been active. Patient signed a release form to obtain her medical records from Dr. Doran's office. TKRN documented as of this encounter (statuses as of 11/15/2021) [facility] of Past illness Narrative* Problem [...] is transferring care from Dr. Doran in [place]. She is 23 weeks 2 days by dates. She states baby has been active. Patient signed a release form to obtain her medical records from Dr. Doran's office. TKRN documented as of this encounter (statuses as of 11/28/2021) [facility] of Past illness Narrative* Problem Noted Date Resolved Date Ultrasound recheck of pyelectasis, antepar patrick 10/11/2020 11/23/2020 Overview: 11/23/20 - resolved! - Marya Chester MD 10/11/2020 Bilateral mild pyelectasis noted on previous ultrasounds. Anatomy US ordered at time of NOB. SW Pruritus of , antepartum 10/06/2020 01/30/2021 Overview: 10/06/2020 Bile acids and LFT's pend. [facility] 01/30/2021 Overview: 09/30/2020 She is transferring care from Dr. Doran in [place]. She is 23 weeks 2 days by dates. She states baby has been active. Patient signed a release form to obtain her medical records from Dr. Doran's office. TKRN documented as of this encounter (statuses as of 12/01/2021) [facility] of Past illness Narrative* Problem [...] is transferring care from Dr. Doran in [place]. She is 23 weeks 2 days by dates. She states baby has been active. Patient signed a release form to obtain her medical records from Dr. Doran's office. TKRN documented as of this encounter (statuses as of 12/01/2021) [facility] Diagnosis Frequency of urination Urinary frequency Urgency of urination Flank pain Abdominal pain, unspecified site Recurrent UTI Urinary tract infection, site not specified Incomplete bladder emptying [facility] encounter [facility] Work Phone: Evaluation note* Diagnosis Cluster headache, not intractable, unspecified chronicity pattern- Primary documented in this encounter [facility] Work Phone: Evaluation note* Diagnosis Encounter for supervision of other normal in first trimester- Primary [facility]* Diagnosis Encounter for (NT) nuchal translucency scan- Primary Other specified screening 13 weeks gestation of state, incidental [facility]* Diagnosis Encounter for supervision of normal in first trimester, unspecified - Primary [facility]* Diagnosis Encounter for supervision of other normal in first trimester- Primary 13 weeks gestation of state, incidental Encounter for screening for nuchal translucency Headaches documented [facility]* Diagnosis APPOINTMENT CANCELLED- Primary [facility]* Diagnosis Encounter for anatomic survey- Primary Suspected anomaly not found 21 weeks gestation of state, incidental [facility]* Diagnosis 21 weeks gestation of - Primary state, incidental Encounter for supervision of other normal in first trimester Malaise and fatigue Other malaise and fatigue Hair loss Alopecia, unspecified [facility]* Diagnosis 26 weeks gestation of - Primary state, incidental [facility]* Diagnosis Depression, unspecified depression type- Primary External hemorrhoids External hemorrhoids without mention of complication documented in this encounter [facility] note* Diagnosis External hemorrhoids- Primary External hemorrhoids without mention of complication [facility] noteNo assessment information availableWHocking [facility] Work Phone: [facility]* Diagnosis Cloudy urine- Primary Other nonspecific finding on examination of urine 29 weeks gestation of state, incidental [facility]* Diagnosis 29 weeks gestation of - Primary state, incidental Encounter for supervision of other normal in first trimester [facility]* Diagnosis 36 weeks gestation of - Primary state, incidental Urinary urgency Urgency of urination [facility]* Diagnosis Short interval between pregnancies affecting , antepartum- Primary Supervision of other normal , antepartum 37 weeks gestation of state, incidental [facility]* Diagnosis 38 weeks gestation of - Primary state, incidental Short interval between pregnancies affecting , antepartum Supervision of other normal , antepartum [facility]* Diagnosis Short interval between pregnancies affecting , antepartum- Primary 39 weeks gestation of state, incidental [facility]* Diagnosis 42 weeks gestation of - Primary 42 weeks gestation of Status post section Other postprocedural status [facility]* Diagnosis Incisional pain- Primary documented in this encounter [facility] note* Diagnosis care and examination- Primary Routine follow-up Vaginal discharge Leukorrhea, not specified as infective documented in this encounter [facility] note* Diagnosis Vaginal odor- Primary Unspecified symptom associated with female genital organs Pelvic cramping Unspecified symptom associated with female genital organs documented in this encounter [facility] note* Diagnosis Vaginal discharge- Primary Leukorrhea, not specified as infective Vaginal odor Unspecified symptom associated with female genital organs documented in this encounter [facility] note* Diagnosis Injury of left foot, initial encounter Closed displaced fracture of phalanx of toe of left foot, unspecified toe, initial encounter documented in this encounter [facility] note* Diagnosis Migraine without aura and without status migrainosus, not intractable- Primary Migraine without aura, without mention of intractable migraine without mention of status migrainosus Lactating mother care and examination of lactating mother documented in this encounter [facility] note* Diagnosis Onset Date Resolution Status Family history of colon cancer in father acute Hemorrhoids acute Vaginal discharge acute [facility] Work Phone: Evaluation note* Diagnosis Routine general medical examination at a health care facility- Primary Encounter to establish care Migraine without aura and without status migrainosus, not intractable Iron deficiency anemia, unspecified iron deficiency anemia type Abdominal bloating Flatulence, eructation, and gas pain Screening for cardiovascular condition Screening for other and unspecified cardiovascular conditions Screening for lipid disorders documented in this encounter [facility] note* Diagnosis Moderate episode of recurrent major depressive disorder (HCC)- Primary PTSD (post-traumatic stress disorder) Posttraumatic stress disorder Insomnia due to mental condition Unspecified nonpsychotic mental disorder documented in this encounter [facility] note* Diagnosis Onset Date Resolution Status Vaginal discharge resolved [facility] Work Phone: Evaluation note* Diagnosis Migraine without aura and without status migrainosus, not intractable- Primary documented in this encounter [facility] note* Diagnosis Migraine without aura and without status migrainosus, not intractable documented in this encounter [facility] note* Diagnosis Encounter for prescription of emergency contraception- Primary documented in this encounter [facility] note* Diagnosis PTSD (post-traumatic stress disorder)- Primary Posttraumatic stress disorder Encounter for completion of form with patient Moderate episode of recurrent major depressive disorder (HCC) Insomnia due to mental condition Unspecified nonpsychotic mental disorder Nightmares associated with chronic post-traumatic stress disorder Other dysfunctions of sleep stages or arousal from sleep documented in this encounter [facility] note* Diagnosis Hemorrhoids, unspecified hemorrhoid type- Primary documented in this encounter [facility] note* Diagnosis Facial skin lesion- Primary documented in this encounter [facility] note* Diagnosis Facial skin lesion Skin tags, multiple acquired Acne vulgaris Other acne Multiple benign melanocytic nevi of both upper extremities, both lower extremities, and trunk documented in this encounter [facility] note* Diagnosis Abnormal uterine bleeding (AUB)- Primary Pelvic pain Family history of malignant neoplasm of digestive organ Family history of malignant neoplasm of gastrointestinal tract documented in this encounter [facility] note* Diagnosis Vulvar itching- Primary Pelvic pain Dyspareunia in female documented in this encounter [facility] note* Diagnosis Pelvic pain- Primary documented in this encounter [facility] note* Diagnosis Severe episode of recurrent major depressive disorder, 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 PTSD (post-traumatic stress disorder) Posttraumatic stress disorder Insomnia due to mental condition Unspecified nonpsychotic mental disorder documented in this encounter [facility] note* Diagnosis PTSD (post-traumatic stress disorder) Posttraumatic stress disorder Severe episode of recurrent major depressive disorder, 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 Unspecified nonpsychotic mental disorder documented in this encounter [facility] note* Diagnosis Abnormal uterine bleeding (AUB)- Primary Pelvic pain Mixed stress and urge urinary incontinence Mixed incontinence urge and stress (male)(female) documented in this encounter [facility] note* Diagnosis Pelvic pain documented in this encounter [facility] note* Diagnosis Onset Date Resolution Status Abnormal finding on MRI of brain acute Anemia acute Anxiety acute Dry skin acute Fatigue acute Migraine with aura acute Care and examination of lactating mother noneactive [facility] Work Phone: Evaluation note* Diagnosis Severe episode of recurrent major depressive disorder, 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 PTSD (post-traumatic stress disorder) Posttraumatic stress disorder Insomnia due to mental condition Unspecified nonpsychotic mental disorder Nightmares associated with chronic post-traumatic stress disorder Other dysfunctions of sleep stages or arousal from sleep documented in this encounter [facility] note* Diagnosis Pelvic pain- Primary documented in this encounter [facility] note* Diagnosis Vaginal discharge- Primary Leukorrhea, not specified as infective documented in this encounter [facility] note* Diagnosis PTSD (post-traumatic stress disorder) Posttraumatic stress disorder Nightmares associated with chronic post-traumatic stress disorder Other dysfunctions of sleep stages or arousal from sleep Severe episode of recurrent major depressive disorder, 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 Unspecified nonpsychotic mental disorder documented in this encounter [facility] note* Diagnosis Vagina, candidiasis- Primary Candidiasis of vulva and vagina documented in this encounter [facility] note* Diagnosis PTSD (post-traumatic stress disorder) Posttraumatic stress disorder Severe episode of recurrent major depressive disorder, 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 Unspecified nonpsychotic mental disorder documented in this encounter [facility] note* Diagnosis Family history of malignant neoplasm of digestive organs- Primary documented in this encounter [facility] note* Diagnosis Pelvic pain- Primary documented in this encounter [facility] note* Diagnosis PTSD (post-traumatic stress disorder)- Primary Posttraumatic stress disorder Severe episode of recurrent major depressive disorder, 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 Unspecified nonpsychotic mental disorder Nightmares associated with chronic post-traumatic stress disorder Other dysfunctions of sleep stages or arousal from sleep documented in this encounter [facility] note* Diagnosis PTSD (post-traumatic stress disorder) Posttraumatic stress disorder Nightmares associated with chronic post-traumatic stress disorder Other dysfunctions of sleep stages or arousal from sleep documented in this encounter [facility] note* Diagnosis PTSD (post-traumatic stress disorder)- Primary Posttraumatic stress disorder Severe episode of recurrent major depressive disorder, without psychotic features (HCC) Nightmares associated with chronic post-traumatic stress disorder Other dysfunctions of sleep stages or arousal from sleep Insomnia due to mental condition Unspecified nonpsychotic mental disorder documented in this encounter [facility] note* Diagnosis Vulvar irritation- Primary Urinary frequency documented in this encounter [facility] note* Diagnosis PTSD (post-traumatic stress disorder) Posttraumatic stress disorder Severe episode of recurrent major depressive disorder, without psychotic features (HCC) documented in this encounter [facility] note* Diagnosis Right foot pain- Primary Pain in soft tissues of limb Contusion of right great toe without damage to nail, initial encounter documented in this encounter [facility] Discharge instructionsAmbulatory Orders* Neurology Location: None Selected [facility] Work Phone: Instructions* Attachments The following attachments cannot be sent through Care Everywhere. * Yearly Physical for Adults ([place]) [facility] Attachments The following attachments cannot be sent through Care Everywhere. * Tubal Ligation, Laparoscopic Surgery (Canadian) documented in [facility] CenterReason for referral (narrative)* Diagnostic Procedure Only (Routine) - Authorized Specialty Diagnoses / Procedures Referred By Beatriz briscoe Referred To Contact [facility] Diagnoses Encounter for supervision of other normal in first trimester Procedures NUCHAL TRANSLUCENCY WHI US NUCHAL TRANSLUCENCY 1ST GESTATION Amanda Alcaraz MD [address] [place] [address] [address] [place] [address] Referral ID Status Reason Start Date Expiration Date Visits Requested Visits Authorized [id number] Authorized Auto-Generat ed Referral 11/30/2021 11/30/2022 1 1 * Diagnostic Procedure Only (Routine) - Pending Review Specialty Diagnoses / Procedures Referred By Beatriz briscoe Referred To Contact [facility] Diagnoses Encounter for supervision of other normal in first trimester Procedures OBSTETRIC ULTRASOUND WHI US PREG UTERUS AFTER 1ST TRIMEST GESTATION Amanda Alcaraz MD [address] [place] [address] [address] [place] [address] Referral ID Status Reason Start Date Expiration Date Visits Requested Visits Authorized [id number] Pending Review Auto-Generat ed Referral 11/30/2021 11/30/2022 1 1 [facility] for referral (narrative)* Diagnostic Procedure Only (Routine) - Authorized Specialty Diagnoses / Procedures Referred By Beatriz briscoe Referred To Contact US IMAGING Diagnoses Pelvic cramping Procedures US FEMALE PELVIS TRANSVAG US TRANSVAGINAL Amanda Alcaraz MD [address] [place] [address] [facility] Referral ID Status Reason Start Date Expiration Date Visits Requested Visits Authorized [id number] Authorized Auto-Generat ed Referral 09/07/2022 10/07/2023 1 1 [facility] for referral (narrative)* Consultation (Routine) - Pending Review Specialty Diagnoses / Procedures Referred By Contac t Referred To Contact General Surgery Diagnoses Hemorrhoids, unspecified hemorrhoid type Procedures [facility] OFFICE/OUTPATIENT NEW HIGH [facility] 60 MINUTES Chago Gallego DO [address] [place] [address] Hermelindo Presley MD [address] [place] [address] Referral ID Status Reason Start Date Expiration Date Visits Requested Visits Authorized [id number] Pending Review Specialty Services Required 07/24/2023 07/23/2024 1 1 [facility] for referral (narrative)* Consultation (Routine) - Pending Review Specialty Diagnoses / Procedures Referred By Contac t Referred To Contact Dermatology Diagnoses Facial skin lesion Procedures VA OFFICE/OUTPATIENT [facility] 60 MINUTES Chago Gallego DO [address] [facility] [address] [place] [address] [facility] Derm [address] [facility] [address] [place] [address] Referral ID Status Reason Start Date Expiration Date Visits Requested Visits Authorized [id number] Pending Review Specialty Services Required 07/26/2023 07/25/2024 1 1 [facility] for visit Narrative* Therapy (Routine) - Pending Review Specialty Diagnoses / Procedures Referred By Contac t Referred To Contact Physical Therapy Diagnoses Pelvic pain Procedures VA OFFICE/OUTPATIENT NEW HIGH [facility] 60 MINUTES Chris Adams MD [address] [address] Phone: tel: fax: [address] [place] [address] Phone: tel: fax: Referral ID Status Reason Start Date Expiration Date Visits Requested Visits Authorized [id number] Pending Review Eval and Treat 12/27/2024 2 2 [facility] for visit Narrative* Therapy (Routine) - Authorized Specialty Diagnoses / Procedures Referred By Contcarlos t Referred To Contact Physical Therapy Diagnoses Pelvic pain Procedures VA OFFICE/OUTPATIENT NEW HIGH [facility] 60 MINUTES Chris Adams MD [address] [address] Phone: tel: fax: [address] [place] [address] Phone: tel: fax: Referral ID Status Reason Start Date Expiration Date Visits Requested Visits Authorized [id number] Authorized Eval and Treat 01/02/[address] [facility] Summary Purpose Family History No Family History Records FoundNo Family History Records FoundNo Family History Records FoundNo Family History Records FoundNo Family History Records FoundNo Family History Records FoundNo Family History Records FoundNo Family History Records Found Advance Directives No Advanced Directives Records FoundDocuments on File Type Date Recorded Patient Comb Setter Expl anation Advance Directives and Living Will Power of Technical Support Agent Documents on File Type Date Recorded Patient Comb Setter Expl anation ACP-Advance Directive ACP-Power of Technical Support Agent Documents on File Type Date Recorded Patient Comb Setter Expl anation ACP-Advance Directive ACP-Power of Technical Support Agent Latest Code Status on File Code Status Date Activated Date Inactivated Comments Full Code 04/20/2021 11:44 AM Latest Code Status on File Code Status Date Activated Date Inactivated Comments Full Code 04/20/2021 11:44 AM 04/20/2021 4:39 PM Advance Directive Response Recorded Date/ Time Living Will No April 23 3:22pm Power of Technical Support Agent No April 23, 2022 3:22pm Latest Code Status on File Code Status Date Activated Date Inactivated Comments Full Code 07/16/2022 1:17 AM 07/19/2022 7:01 PM Advance Directive Response Recorded Date/ Time Living Will No November 01 11:57am Power of Technical Support Agent No November 01, 2 11:57am Advance Directive Response Recorded Date/ Time Living Will No December 26 8:12am Power of Technical Support Agent No December 26, 2022 8:12am Latest Code Status on File Code Status [...] navicular bone of left foot, initial encounter Garth Solano APRN - COMMUNITY CHEST OFFICER [address] [place] [address] [id number] [place] [address] Scheduling Instructions [facility] [address] [address] Specialty Diagnoses / Procedures Referred By Contcarlos t Referred To Contact Beatrice Parisi DO [address] [place] [address] Referral ID Status Reason Start Date Expiration Date V isits Requested Visits Authorized [id number] Pending Review 1 1 Specialty Diagnoses / Procedures Referred By Contac t Referred To Contact Radiology Diagnoses Migraine without aura and without status migrainosus, not intractable Procedures MR brain wo contrast Lynne Hale, CURTAIN H[employer] - COMMUNITY CHEST OFFICER [address] [place] [address] Referral ID Status Reason Start Date Expiration Date V isits Requested Visits Authorized [id number] Pending Review 02/14/2023 02/14/2024 1 1 Specialty Diagnoses / Procedures Referred By Contac t Referred To Contact Radiology Diagnoses Migraine without aura and without status migrainosus, not intractable Procedures MR brain wo contrast Lynne Hale, CURTAIN [employer] - COMMUNITY CHEST OFFICER [address] [place] [address] [facility] [address] [place] [address] Referral ID Status Reason Start Date Expiration Date Visits Re quested Visits Authorized [id number] Closed 02/14/2023 02/14/2024 1 1 Specialty Diagnoses / Procedures Referred By Contac t Referred To Contact Physical Therapy Diagnoses Pelvic pain Procedures VA OFFICE/OUTPATIENT [facility] 60 MINUTES Chris Adams MD [address] [facility] [address] [place] [address] [facility] [address] [facility] [place] [address] Referral ID Status Reason Start Date Expiration Date Visits Requested Visits Authorized [id number] Pending Review Eval and Treat 4 12/27/2024 99 99 Discharge Instructions * Attachments The following attachments cannot be sent through Care Everywhere. * Foot Fracture (Canadian) documented in this encounter* Instructions* Valeriano Hamilton MD - 03/28/2020 Use crutches and be nonweightbearing for the next 3-4 days, take [place] as prescribed, mandatory follow-up with the orthopedic referral that was made for you at [facility] yesterday, return to Emergency Room if worse at all. * Attachments The following attachments cannot be sent through Care Everywhere. * Foot Fracture (Canadian) documented in this encounter Health Concerns Problem [...] Noted Date Diagnosed Date OB Reminders 11/30/2021 Chief Complaint and Reason for Visit Chief Complaint HEADACHE Chief Complaint hemmorrhoids ED 10/07 THROMBOSED HEMORRHOID discolored discharge Reason for Visit Family history of co marcella cancer in father Hemorrhoids Vaginal discharge Chief Complaint discolored discharge Reason for Visit Vaginal discharge Chief Complaint hormone/thyroid conc erns, pt lost on her way EORDER assessment Reason for Visit Abnormal finding on MRI of brain Anemia Anxiety Dry skin Fatigue Migraine with aura Care and examination of lactating mother Additional Source Comments INFORMATION SOURCE (unrecogn ized section and content) DATE CREATED AUTHOR 01/01/2018 [facility] DATE CREATED AUTHOR AUTHOR'S ORGANIZ ATION 03/26/2019 [facility] CREATED AUTHOR AUTHOR'S ORGANIZ ATION 04/26/2021 [facility] CREATED AUTHOR AUTHOR'S ORGANIZ ATION 08/05/2021 [facility] CREATED AUTHOR AUTHOR'S ORGANIZ ATION 03/30/2024 [facility] DATE CREATED AUTHOR AUTHOR'S ORGANIZ ATION 05/13/2024 [facility] DATE CREATED AUTHOR AUTHOR'S ORGANIZ ATION 10/28/2024 [facility] DATE CREATED AUTHOR AUTHOR'S ORGANIZ ATION 01/07/[address] [facility] Reason for Visit (unrecogniz ed section and content) Reason Comments Ankle Pain left Reason Comments Foot Pain Reason Comments Headache Reason Comments Future Appointment Reason Comments Early OB pain Reason Comments Contact Center Assistant - Other PRAF Reason Comments Care Reason Comments Question (OB Question) Reason Comments US Specialty Diagnoses / Procedures Referred By Contac t Referred To Contact [facility] Diagnoses Encounter for supervision of other normal in first trimester Procedures NUCHAL TRANSLUCENCY WHI US NUCHAL TRANSLUCENCY 1ST GESTATION Amanda Alcaraz MD [address] [id number] [facility] [address] [place] [address] Referral ID Status Reason Start Date Expiration Date V isits Requested Visits Authorized [id number] Closed Auto-Generate d Referral 11/30/2021 11/30/2022 1 1 Reason Comments First Seq Results Reason Onset Date Comments Care 12/29/2021 Reason Comments NIPT results Reason Onset Date Comments Care 01/31/2022 Reason Comments Patient Question Specialty Diagnoses / Procedures Referred By Contac t Referred To Contact [facility] Diagnoses Encounter for supervision of other normal in first trimester Procedures OBSTETRIC ULTRASOUND WHI US PREG UTERUS AFTER 1ST TRIMEST GESTATION Amanda Alcaraz MD [address] [place] [address] [facility] [address] [place] [address] Referral ID Status Reason Start Date Expiration Date V isits Requested Visits Authorized [id number] Closed Auto-Generate d Referral 11/30/2021 11/30/2022 1 [...] Diagnoses 42 weeks gestation of Procedures O48.0 Emile, Diann W, DO [address] [place] [address] Referral ID Status Reason Start Date Expiration Date Visits Re quested Visits Authorized [id number] 1 Reason Comments Vaginal Bleeding Abdominal pain, Reason Comments Routine Reason Comments Insurance Authorization Reason Comments New Patient L 5th toe fx Specialty Diagnoses / Procedures Referred By Contac t Referred To Contact Orthopedic Surgery Diagnoses Injury of left foot, initial encounter Closed displaced fracture of phalanx of toe of left foot, unspecified toe, initial encounter Guerita Wiseman PA-C [address] [facility] [address] [place] [address] [facility] [address] [place] [address] Referral ID Status Reason Start Date Expiration Date V isits Requested Visits Authorized [id number] Closed Specialty Services Required 10/10/2022 10/10/2023 1 1 Reason Comments Migraine Reason Comments New Patient Establish Care Specialty Diagnoses / Procedures Referred By Contac t Referred To Contact Radiology Diagnoses Migraine without aura and without status migrainosus, not intractable Procedures MR brain wo contrast Lynne Hale, SATHYA - YANELY [address] [facility] [address] [place] [address] [facility] [address] [place] [address] Referral ID Status Reason Start Date Expiration Date Visits Re quested Visits Authorized [id number] Closed 02/14/2023 02/14/2024 1 1 Reason Comments Depression Sleep Problem Med Management Follow Up Posttraumatic Stress Disorder Reason Onset Date Comments Population Health Navigation Outreach 08/10/[address] Parisi Reason Onset Date Comments Pelvic Pain 09/19/2023 Reason Comments Skin Lesion SHAREBROKER (CRB) Specialty Diagnoses / Procedures Referred By Contac t Referred To Contact Dermatology Diagnoses Facial skin lesion Procedures VA OFFICE/OUTPATIENT NEW [facility]IGH [facility] 60 MINUTES Chago Gallego DO [address] [facility] [address] [place] [address] [facility] Derm [address] [facility] [address] [place] [address] Referral ID Status Reason Start Date Expiration Date V isits Requested Visits Authorized [id number] Closed Specialty Services Required 07/26/2023 07/25/2024 1 [...] Reason Onset Date Comments Medication Question 01/04/2024 Reason Comments Posttraumatic Stress Disorder Depression Med Management Reason Comments Follow-up REVENUE TAX SPECIALIST Reason Comments Depression Posttraumatic Stress Disorder Med Management Reason Onset Date Comments Urinary Problem 05/02/2022 Reason Comments Vaginal Discharge Reason Comments Medication Problem Reason Onset Date Comments Results 03/06/2024 Reason Comments Appointment Schedule intake for ACT Program Reason Comments Posttraumatic Stress Disorder Depression Anxiety Med Management Reason Comments Posttraumatic Stress Disorder Depression Med Management Education Of Patient/family Reason Comments Urinary Frequency Vaginal discharge Stanton rgery sunday Hiatal hernia Reason Onset Date Comments Urinary Urgency 05/27/2024 Reason Onset Date Comments Refill Request 07/01/2024 buPROPion XL (WE LLBUTRIN XL) 150 mg 24 hr tablet Reason Comments New Patient Right Foot Ordered Prescriptions (unrec ognized section and content) [...] 100 mL IVPB (premix) 2,000 mg, IntraVENous, LOCK STITCH CHANNELER TO O.R., 1 dose, On Sun04/20/21 at [...] Tessy 06/02/21 at 1634, For 1 dose 165 (New Bag - Prov ider: Gita Loo RN)1840 (Stopped - Provider: Gita Loo RN) ketorolac (TORADOL) injection 30 mg (COMPLETED) 30 mg, IntraVENous, ONCE, On Tessy 06/02/21 at 1634, For 1 dose, Do not administer for more than 5 days. 165 (Given - Provid er: Gita Loo RN) nalbuphine (NUBAIN) injection 10 mg (COMPLETED) 10 mg, IntraVENous, ONCE, On Tessy 06/02/21 at 1723, For 1 dose 1753 (Given - Provid er: Gita Loo, CRISS) ondansetron (ZOFRAN) injection 4 mg (COMPLETED) 4 [...] - Reason: Patient/family refused)1510 (Given - Provider: Nleson Benjamin, CRISS)2120 (Given - Provider: Adelaida Doran, CRISS) 0330 (Given - Provider: Shayna Chaidez, RN)0902 (Given - Provider: Dora Villegas RN)1458 [...] 17 g, Oral, Daily, First dose on Sun07/17/22 at 1430 1430 (Given - Provider: Ada [...] day), First dose on 07/16/22 at 0900, , or Line Patency: Peripheral [...] Doran, CRISS) 0926 (Given - Provider: Dora Villegas RN) famotidine (Pepcid) tablet 20 mg 20 mg, [...] RN) 0330 (Given - Provider: Shayna Chaidez, RN)0901 (Given - Provider: Dora Villegas, RN)1414 (Given - Provider: Dora Villegas, RN) oxyCODONE (Roxicodone) immediate release tablet 5 mg(Linked Group 3) 5 mg, Oral, Every 4 hours PRN, moderate pain (4-6), Starting on 07/16/22 at 1400, 0613 (See Alternative - Provider: Isabella Mcfadden RN)1013 (See Alternative - Provider: Ada Fuentes, RN)1414 (See Alternative - Provider: Ada Dill, RN)1818 (See Alternative - Provider: Ada Dill, RN)2217 (See Alternative - Provider: Jessica Maguire, CRISS) 0546 (See Alternative - Provider: Jessica Maguire, RN)1000 (See Alternative - Provider: Genevieve Robert, RN)1510 (See Alternative - Provider: Nelson Benjamni, RN)2120 (See Alternative - Provider: Adelaida Doran, CRISS) 0330 (See Alternative - Provider: Shayna Chaidez, RN)0901 (See Alternative - Provider: Dora Villegas, RN)1414 (See Alternative - Provider: Dora Villegas, RN) phenylephrine-mineral oil-petrolatum (Preparation H) ointment Rectal, 2 times daily PRN, hemorrhoids, Starting on Tu07/18/22 at 0014 simethicone (Mylicon) chewable tablet 80 [...] Care Teams (unrecognized sec tion and content) Beer Cooler Relationship Specialty Start Date End Date Chris Shannon MD [address] [place] [address] PCP - General Family Medicine 01/28/15 Beer Cooler Relationship Specialty Start Date End Date Chris Shannon MD [address] [place] [address] PCP - General Family Medicine 01/28/15 Beer Cooler Relationship Specialty Start Date End Date Chirs Shannon MD [address] [place] [address] PCP - General Family Practice 10/10/18 Beer Cooler Relationship Specialty Start Date End Date Chris Shannon MD [address] [place] [address] PCP - General Family Practice 10/10/18 Beer Cooler Relationship Specialty Start Date End Date Chris Shannon MD [address] [place] [address] PCP - General Family Practice 10/10/18 Beer Cooler Relationship Specialty Start Date End Date Chris Shannon MD [address] [place] [address] PCP - General Family Practice 10/10/18 Beer Cooler Relationship Specialty Start Date End Date Chris Shannon MD [address] [place] [address] PCP - General Family Practice 10/10/18 Beer Cooler Relationship Specialty Start Date End Date Chris Shannon MD [address] [place] [address] PCP - General Family Medicine 10/10/18 Beer Cooler Relationship Specialty Start Date End Date Chris Shannon MD [address] [place] [address] PCP - General Family Medicine 10/10/18 Beer Cooler Relationship Specialty Start Date End Date Chris Shannon MD [address] [place] [address] PCP - General Family Medicine 10/10/18 Beer Cooler Relationship Specialty Start Date End Date Chris Shannon MD [address] [place] [address] PCP - General Family Medicine 10/10/18 Beer Cooler Relationship Specialty Start Date End Date Chris Shannon MD [address] [place] [address] PCP - General Family Medicine 10/10/18 Beer Cooler Relationship Specialty Start Date End Date Chris Shannon MD [address] [place] [address] PCP - General Family Medicine 10/10/18 Beer Cooler Relationship Specialty Start Date End Date Chris Shannon MD [address] [place] [address] PCP - General Family Medicine 10/10/18 Beer Cooler Relationship Specialty Start Date End Date Chris Shannon MD [address] [place] [address] PCP - General Family Medicine 10/10/18 Beer Cooler Relationship Specialty Start Date End Date Beatrice Parisi DO [address] [place] [address] PCP - General Family Medicine 04/10/22 Beer Cooler Relationship Specialty Start Date End Date Beatrice Parisi DO [address] [place] [address] PCP - General Family Medicine 04/10/22 Team Status: Active Member Role Status Dates Out of Town Doctor Primary Care Provider Active Team Status: Inactive Member Role Status Dates Dr. Homero Barbosa MD Emergency Provider Active Out of Town Doctor Primary Care Provider Active Beer Cooler Relationship Specialty Start Date End Date Beatrice Parisi DO [address] [place] [address] PCP - General Family Medicine 04/10/22 Beer Cooler Relationship Specialty Start Date End Date Beatrice Parisi DO [address] [place] [address] PCP - General Family Medicine 04/10/22 Beer Cooler Relationship Specialty Start Date End Date Beatrice Parisi DO [address] [place] [address] PCP - General Family Medicine 04/10/22 Beer Cooler Relationship Specialty Start Date End Date Beatrice Parisi DO [address] [place] [address] PCP - General Family Medicine 04/10/22 Beer Cooler Relationship Specialty Start Date End Date Beatrice Parisi DO [address] [place] [address] PCP - General Family Medicine 04/10/22 Beer Cooler Relationship Specialty Start Date End Date Beatrice Parisi DO [address] [place] [address] (Fax) PCP - General Family Medicine 04/10/22 Beer Cooler Relationship Specialty [place] [address] [place] [address] PCP - General Family Medicine 04/10/22 Beer Cooler Relationship Specialty Start Date End Date Beatrice Parisi DO [address] [place] [phone] (Fax) PCP - General Family Medicine 04/10/22 Beer Cooler Relationship Specialty Start Date End Date Beatrice Parisi DO [address] [place] [phone] (Fax) PCP - General Family Medicine 04/10/22 Beer Cooler Relationship Specialty Start Date End Date Beatrice Parisi DO [address] [place] [phone] (Fax) PCP - General Family Medicine 04/10/22 Beer Cooler Relationship Specialty Start Date End Date Rojelio Malone C[facility] Chapel[facility] [address] [place] [phone] PCP - General Obstetrics and Gynecology 10/10/22 Beer Cooler Relationship Specialty Start Date End Date Beatrice Parisi DO [address] [place] [address] PCP - General Family Medicine 04/10/22 Team Status: Inactive Member Role Status Dates Dr. Hermelindo Presley MD Attending Provider Active Team Status: Inactive Member Role Status Dates Magaly Joyce CNM Attending Provider Active Team Status: Inactive Member Role Status Dates Magaly Joyce CNM Attending Provider, Referring Pr ovider Active Team Status: Inactive Member Role Status Dates Dr. Dexter Ghosh MD Attending Provider, Emergency Pro vider Active BEATRICE, BRODE Primary Care Provider Active Beer Cooler Relationship Specialty Start Date End Date Chago Gallego DO [address] [place] [address] PCP - General Family Medicine 11/23/22 Beer Cooler Relationship Specialty Start Date End Date Beatrice Parisi DO [address] [place] [address] PCP - General Family Medicine 04/10/22 Beer Cooler Relationship Specialty Start Date End Date Chago Gallego DO [address] [place] [address] PCP - General Family Medicine 11/23/22 Beer Cooler Relationship Specialty Start Date End Date Chago Gallego DO [address] [place] [address] PCP - General Family Medicine 11/23/22 Beer Cooler Relationship Specialty Start Date End Date Chago Gallego DO [address] [place], [place] [address] PCP - General Family Medicine 11/23/22 Beer Cooler Relationship Specialty Start Date End Date Beatrice Parisi DO PCP - General Family Medicine 04/10/22 Beer Cooler Relationship Specialty Start Date End Date Chago Gallego DO [address] [place], [place] [address] PCP - General Family Medicine 11/23/22 Beer Cooler Relationship Specialty Start Date End Date Chago Gallego DO [address] [place], [place] [address] PCP - General Family Medicine 11/23/22 Beer Cooler Relationship Specialty Start Date End Date Chago Gallego DO [address] [place] [address] PCP - General Family Medicine 08/10/23 Nghia Kelsey MD [address] [place], [place] [id number] Resident Psychiatry 12/08/22 Beer Cooler Relationship Specialty Start Date End Date Chago Gallego DO [address] [place] [address] PCP - General Family Medicine 11/23/22 Beer Cooler Relationship Specialty Start Date End Date Chago Gallego DO [address] [place] [address] PCP - General Family Medicine 11/23/22 Beer Cooler Relationship Specialty Start Date End Date Chago Gallego DO [address] [place] [address] PCP - General Family Medicine 11/23/22 Beer Cooler Relationship Specialty Start Date End Date Chago Gallego DO [address] [place] [address] PCP - General Family Medicine 08/10/23 Nghia Kelsey MD [address] [place], [place] [id number] Resident Psychiatry 12/08/22 01/07/24 Beer Cooler Relationship Specialty Start Date End Date Chago Gallego DO [address] [place] [address] PCP - General Family Medicine 08/10/23 Sheila Swartz DO [address] [place] [id number] Psychiatry 01/08/24 Beer Cooler Relationship Specialty Start Date End Date Chago Gallego DO [address] [place] [address] PCP - General Family Medicine 08/10/23 [facility] Sw[facility] [place] [place] [id number] Psychiatry 01/08/24 Beer Cooler Relationship Specialty Start Date End Date Chago Gallego DO [address] [place] [address] PCP - General Family Medicine 08/10/23 Sheila Swartz DO 1 [facility] [place] [id number] Psychiatry 01/08/24 Beer Cooler Relationship Specialty Start Date End Date Chago Gallego DO [address] [place] [phone] PCP - General Family Medicine 08/10/23 Sheila Swartz DO 1 [facility] [address] [place], [place] [id number] Psychiatry 01/08/24 Beer Cooler Relationship Specialty Start Date End Date Radha Agee MD [address] [place] [address] PCP - General Internal Medicine 02/08/24 Team Status: Inactive Member Role Status Dates Kia Peres SHAREBROKER, SHAREBROKER-C Attending Provider Active No Primary Care Physician Referring Provider Active Team Status: Inactive Member Role Status Dates Niharika Grant SHAREBROKER, SHAREBROKER-C Attending Provider Active Team Status: Active Member Role Status Dates Kia Peres SHAREBROKER, SHAREBROKER-C Attending Provider Active Team Status: Inactive Member Role Status Dates Kia Peres SHAREBROKER, SHAREBROKER-C Attending Provider, Referring Provider Active Beer Cooler Relationship Specialty Start Date End Date Chago Gallego DO [address] [place] [phone] PCP - General Family Medicine 08/10/23 Sheila Swartz DO [address] [facility] [place], [place] [id number] Psychiatry 01/08/24 Beer Cooler Relationship Specialty Start Date End Date Radha Agee MD [address] [place] [address] PCP - General Internal Medicine 02/08/24 Beer Cooler Relationship Specialty Start Date End Date Chaog Gallego DO [address] [facility] [address] [place] [phone] PCP - General Family Medicine 08/10/23 Sheila Swartz, [address] [facility] [place], [place] [id number] Psychiatry 01/08/24 Beer Cooler Relationship Specialty Start Date End Date Chris Shannon MD [address] [place] [id number] PCP - General 01/28/15 Beer Cooler Relationship Specialty Start Date End Date Radha Agee MD [address] [place], [place] [address] PCP - General Internal Medicine 02/08/24 Beer Cooler Relationship Specialty Start Date End Date Chago Gallego DO [address] [place] [phone] PCP - General Family Medicine 08/10/23 Sheila Swartz DO [address] [place], [place] [id number] Psychiatry 01/08/24 Beer Cooler Relationship Specialty Start Date End Date Chago Gallego DO [address] [place] [phone] PCP - General Family Medicine 08/10/23 Sheila Swartz DO [address] [place], [place] [phone] Psychiatry 01/08/24 Beer Cooler Relationship Specialty Start Date End Date Radha Agee MD [address] [place] [address] PCP - General Internal Medicine 02/08/24 Beer Cooler Relationship Specialty Start Date End Date Chago Gallego DO [address] [place] [phone] PCP - General Family Medicine 08/10/23 Sheila Swartz DO [address] [place], [place] [id number] Psychiatry 01/08/24 Beer Cooler Relationship Specialty Start Date End Date Radha Agee MD [address] [place], [place] [address] PCP - General Internal Medicine 02/08/24 Beer Cooler Relationship Specialty Start Date End Date Chago Gallego DO [address] [place] [phone] PCP - General Family Medicine 08/10/23 Sheila Swartz DO [address] [place], [place] [phone] Psychiatry 01/08/24 Beer Cooler Relationship Specialty Start Date End Date Radha Agee MD [address] [place], [place] [address] PCP - General Internal Medicine 02/08/24 Beer Cooler Relationship Specialty Start Date End Date Chago Gallego DO [address] [place] [address] PCP - General Family Medicine 08/10/23 Sheila Swartz DO [address] [place], [place] [phone] Psychiatry 01/08/24 Beer Cooler Relationship Specialty Start Date End Date Chago Gallego DO [address] [place] [address] PCP - General Family Medicine 08/10/23 Sheila Swartz DO [address] [place], [place] [phone] Psychiatry 01/08/24 Beer Cooler Relationship Specialty Start Date End Date Chago Gallego DO [address] [place] [address] PCP - General Family Medicine 04/09/24 Beer Cooler Relationship Specialty Start Date End Date Chago Gallego DO [address] [place] [address] PCP - General Family Medicine 04/09/24 Beer Cooler Relationship Specialty Start Date End Date Chago Gallego DO [address] [place] [address] PCP - General Family Medicine 08/10/23 Sheila Swartz DO [address] [facility] [place] [address] Psychiatry 01/08/24 Source Comments (unrecognize d section and content) In the event this informatio n is protected by the Federal Confidentiality of Alcohol and Drug Abuse Patient Records regulations: The Federal rules restrict any use of the information to criminally investigate or prosecute any alcohol or drug abuse patient.[facility] the event this information is protected by the Federal Confidentiality of Alcohol and Drug Abuse Patient Records regulations: The Federal rules restrict any use of the information to criminally investigate or prosecute any alcohol or drug abuse patient.[facility] the event this information is protected by the Federal Confidentiality of Alcohol and Drug Abuse Patient Records regulations: The Federal rules restrict any use of the information to criminally investigate or prosecute any alcohol or drug abuse patient.[facility] the event this information is protected by the Federal Confidentiality of Alcohol and Drug Abuse Patient Records regulations: The Federal rules restrict any use of the information to criminally investigate or prosecute any alcohol or drug abuse patient.[facility] the event this information is protected by the Federal Confidentiality of Alcohol and Drug Abuse Patient Records regulations: The Federal rules restrict any use of the information to criminally investigate or prosecute any alcohol or drug abuse patient.[facility]In the event this information is protected by the Federal Confidentiality of Alcohol and Drug Abuse Patient Records regulations: The Federal rules restrict any use of the information to criminally investigate or prosecute any alcohol or drug abuse patient.[facility] the event this information is protected by the Federal Confidentiality of Alcohol and Drug Abuse Patient Records regulations: The Federal rules restrict any use of the information to criminally investigate or prosecute any alcohol or drug abuse patient.[facility]In the event this information is protected by the Federal Confidentiality of Alcohol and Drug Abuse Patient Records regulations: The Federal rules restrict any use of the information to criminally investigate or prosecute any alcohol or drug abuse patient.[facility]In the event this information is protected by the Federal Confidentiality of Alcohol and Drug Abuse Patient Records regulations: The Federal rules restrict any use of the information to criminally investigate or prosecute any alcohol or drug abuse patient.[facility]In the event this information is protected by the Federal Confidentiality of Alcohol and Drug Abuse Patient Records regulations: The Federal rules restrict any use of the information to criminally investigate or prosecute any alcohol or drug abuse patient.[facility]In the event this information is protected by the Federal Confidentiality of Alcohol and Drug Abuse Patient Records regulations: The Federal rules restrict any use of the information to criminally investigate or prosecute any alcohol or drug abuse patient.[facility]In the event this information is protected by the Federal Confidentiality of Alcohol and Drug Abuse Patient Records regulations: The Federal rules restrict any use of the information to criminally investigate or prosecute any alcohol or drug abuse patient.[facility]In the event this information is protected by the Federal Confidentiality of Alcohol and Drug Abuse Patient Records regulations: The Federal rules restrict any use of the information to criminally investigate or prosecute any alcohol or drug abuse patient.[facility]In the event this information is protected by the Federal Confidentiality of Alcohol and Drug Abuse Patient Records regulations: The Federal rules restrict any use of the information to criminally investigate or prosecute any alcohol or drug abuse patient.[facility]In the event this information is protected by the Federal Confidentiality of Alcohol and Drug Abuse Patient Records regulations: The Federal rules restrict any use of the information to criminally investigate or prosecute any alcohol or drug abuse patient.[facility]In the event this information is protected by the Federal Confidentiality of Alcohol and Drug Abuse Patient Records regulations: The Federal rules restrict any use of the information to criminally investigate or prosecute any alcohol or drug abuse patient.[facility] HospitalIn the event this information is protected by the Federal Confidentiality of Alcohol and Drug Abuse Patient Records regulations: The Federal rules restrict any use of the information to criminally investigate or prosecute any alcohol or drug abuse patient.[facility] HospitalIn the event this information is protected by the Federal Confidentiality of Alcohol and Drug Abuse Patient Records regulations: The Federal rules restrict any use of the information to criminally investigate or prosecute any alcohol or drug abuse patient.[facility]In the event this information is protected by the Federal Confidentiality of Alcohol and Drug Abuse Patient Records regulations: The Federal rules restrict any use of the information to criminally investigate or prosecute any alcohol or drug abuse patient.[facility]In the event this information is protected by the Federal Confidentiality of Alcohol and Drug Abuse Patient Records regulations: The Federal rules restrict any use of the information to criminally investigate or prosecute any alcohol or drug abuse patient.[facility] HospitalIn the event this information is protected by the Federal Confidentiality of Alcohol and Drug Abuse Patient Records regulations: The Federal rules restrict any use of the information to criminally investigate or prosecute any alcohol or drug abuse patient.[facility] HospitalIn the event this information is protected by the Federal Confidentiality of Alcohol and Drug Abuse Patient Records regulations: The Federal rules restrict any use of the information to criminally investigate or prosecute any alcohol or drug abuse patient.[facility]In the event this information is protected by the Federal Confidentiality of Alcohol and Drug Abuse Patient Records regulations: The Federal rules restrict any use of the information to criminally investigate or prosecute any alcohol or drug abuse patient.[facility]In the event this information is protected by the Federal Confidentiality of Alcohol and Drug Abuse Patient Records regulations: The Federal rules restrict any use of the information to criminally investigate or prosecute any alcohol or drug abuse patient.[facility]In the event this information is protected by the Federal Confidentiality of Alcohol and Drug Abuse Patient Records regulations: The Federal rules restrict any use of the information to criminally investigate or prosecute any alcohol or drug abuse patient.[facility]In the event this information is protected by the Federal Confidentiality of Alcohol and Drug Abuse Patient Records regulations: The Federal rules restrict any use of the information to criminally investigate or prosecute any alcohol or drug abuse patient.[facility]In the event this information is protected by the Federal Confidentiality of Alcohol and Drug Abuse Patient Records regulations: The Federal rules restrict any use of the information to criminally investigate or prosecute any alcohol or drug abuse patient.[facility] HospitalIn the event this information is protected by the Federal Confidentiality of Alcohol and Drug Abuse Patient Records regulations: The Federal rules restrict any use of the information to criminally investigate or prosecute any alcohol or drug abuse patient.[facility] HospitalIn the event this information is protected by the Federal Confidentiality of Alcohol and Drug Abuse Patient Records regulations: The Federal rules restrict any use of the information to criminally investigate or prosecute any alcohol or drug abuse patient.[facility] HospitalIn the event this information is protected by the Federal Confidentiality of Alcohol and Drug Abuse Patient Records regulations: The Federal rules restrict any use of the information to criminally investigate or prosecute any alcohol or drug abuse patient.[facility] HospitalIn the event this information is protected by the Federal Confidentiality of Alcohol and Drug Abuse Patient Records regulations: The Federal rules restrict any use of the information to criminally investigate or prosecute any alcohol or drug abuse patient.[facility] HospitalIn the event this information is protected by the Federal Confidentiality of Alcohol and Drug Abuse Patient Records regulations: The Federal rules restrict any use of the information to criminally investigate or prosecute any alcohol or drug abuse patient.[facility] HospitalIn the event this information is protected by the Federal Confidentiality of Alcohol and Drug Abuse Patient Records regulations: The Federal rules restrict any use of the information to criminally investigate or prosecute any alcohol or drug abuse patient.[facility] HospitalIn the event this information is protected by the Federal Confidentiality of Alcohol and Drug Abuse Patient Records regulations: The Federal rules restrict any use of the information to criminally investigate or prosecute any alcohol or drug abuse patient.[facility] HospitalIn the event this information is protected by the Federal Confidentiality of Alcohol and Drug Abuse Patient Records regulations: The Federal rules restrict any use of the information to criminally investigate or prosecute any alcohol or drug abuse patient.[facility]In the event this information is protected by the Federal Confidentiality of Alcohol and Drug Abuse Patient Records regulations: The Federal rules restrict any use of the information to criminally investigate or prosecute any alcohol or drug abuse patient.[facility] HospitalIn the event this information is protected by the Federal Confidentiality of Alcohol and Drug Abuse Patient Records regulations: The Federal rules restrict any use of the information to criminally investigate or prosecute any alcohol or drug abuse patient.[facility] HospitalIn the event this information is protected by the Federal Confidentiality of Alcohol and Drug Abuse Patient Records regulations: The Federal rules restrict any use of the information to criminally investigate or prosecute any alcohol or drug abuse patient.[facility] HospitalIn the event this information is protected by the Federal Confidentiality of Alcohol and Drug Abuse Patient Records regulations: The Federal rules restrict any use of the information to criminally investigate or prosecute any alcohol or drug abuse patient.[facility] HospitalIn the event this information is protected by the Federal Confidentiality of Alcohol and Drug Abuse Patient Records regulations: The Federal rules restrict any use of the information to criminally investigate or prosecute any alcohol or drug abuse patient.[facility] HospitalIn the event this information is protected by the Federal Confidentiality of Alcohol and Drug Abuse Patient Records regulations: The Federal rules restrict any use of the information to criminally investigate or prosecute any alcohol or drug abuse patient.[facility] HospitalIn the event this information is protected by the Federal Confidentiality of Alcohol and Drug Abuse Patient Records regulations: The Federal rules restrict any use of the information to criminally investigate or prosecute any alcohol or drug abuse patient.[facility]In the event this information is protected by the Federal Confidentiality of Alcohol and Drug Abuse Patient Records regulations: The Federal rules restrict any use of the information to criminally investigate or prosecute any alcohol or drug abuse patient.[facility] HospitalIn the event this information is protected by the Federal Confidentiality of Alcohol and Drug Abuse Patient Records regulations: The Federal rules restrict any use of the information to criminally investigate or prosecute any alcohol or drug abuse patient.[facility] HospitalIn the event this information is protected by the Federal Confidentiality of Alcohol and Drug Abuse Patient Records regulations: The Federal rules restrict any use of the information to criminally investigate or prosecute any alcohol or drug abuse patient.[facility] HospitalIn the event this information is protected by the Federal Confidentiality of Alcohol and Drug Abuse Patient Records regulations: The Federal rules restrict any use of the information to criminally investigate or prosecute any alcohol or drug abuse patient.[facility] HospitalIn the event this information is protected by the Federal Confidentiality of Alcohol and Drug Abuse Patient Records regulations: The Federal rules restrict any use of the information to criminally investigate or prosecute any alcohol or drug abuse patient.[facility] HospitalIn the event this information is protected by the Federal Confidentiality of Alcohol and Drug Abuse Patient Records regulations: The Federal rules restrict any use of the information to criminally investigate or prosecute any alcohol or drug abuse patient.[facility]In the event this information is protected by the Federal Confidentiality of Alcohol and Drug Abuse Patient Records regulations: The Federal rules restrict any use of the information to criminally investigate or prosecute any alcohol or drug abuse patient.[facility] HospitalIn the event this information is protected by the Federal Confidentiality of Alcohol and Drug Abuse Patient Records regulations: The Federal rules restrict any use of the information to criminally investigate or prosecute any alcohol or drug abuse patient.[facility] HospitalIn the event this information is protected by the Federal Confidentiality of Alcohol and Drug Abuse Patient Records regulations: The Federal rules restrict any use of the information to criminally investigate or prosecute any alcohol or drug abuse patient.[facility] HospitalIn the event this information is protected by the Federal Confidentiality of Alcohol and Drug Abuse Patient Records regulations: The Federal rules restrict any use of the information to criminally investigate or prosecute any alcohol or drug abuse patient.[facility] HospitalIn the event this information is protected by the Federal Confidentiality of Alcohol and Drug Abuse Patient Records regulations: The Federal rules restrict any use of the information to criminally investigate or prosecute any alcohol or drug abuse patient.[facility]In the event this information is protected by the Federal Confidentiality of Alcohol and Drug Abuse Patient Records regulations: The Federal rules restrict any use of the information to criminally investigate or prosecute any alcohol or drug abuse patient.[facility] HospitalIn the event this information is protected by the Federal Confidentiality of Alcohol and Drug Abuse Patient Records regulations: The Federal rules restrict any use of the information to criminally investigate or prosecute any alcohol or drug abuse patient.[facility] Goals (unrecognized section and content) Goals may be documented in a n alternate sectionGoals may be documented in an alternate sectionGoals may be documented in an alternate sectionGoals may be documented in an alternate section FOR RECORDS PERTAINING TO PATIENTS WHO ARE [...] BE BASED ON THE PRIMARY CLINICAL RECORDS. [facility] [employer] [facility]. provides no warranty or guarantee of the accuracy or completeness of information in this document.
[2025-01-09 16:40] VITALS: BP 127/75; PULSE 71; RESP 16; TEMP 36.4; O2SAT 100
== END 2025-01-09 16:40 | disposition home or self-care (01) ==
PROVIDERS: Emergency Provider Emergency Medicine; PCP Internal Medicine; Visit Provider Emergency Medicine
DX: K64.5 Perianal venous thrombosis (principal); J45.909 Unspecified asthma, uncomplicated; K21.9 Gastro-esophageal reflux disease without esophagitis
CPT/HCPCS: 46320; 99282